=== PATIENT | female | born 1945 | race Caucasian/White ===

== ENCOUNTER 2017-06-14 06:00 | Outpatient (RCR) | payer MEDICARE, OTHER, SELFPAY | END 2017-06-15 23:59 | LOC: PR 06:00 | PROVIDERS: Family Provider Family Medicine; PCP Family Medicine; Visit Provider Internal Medicine Critical Care Medicine | DX: Z00.00 Encounter for general adult medical examination without abnormal findings (principal) ==

== ENCOUNTER → 2017-07-08 07:48 | Outpatient (CLI) | payer MEDICARE, OTHER, SELFPAY ==
--- NOTE | 2017-07-08 07:50 | CT_ITS ---
STUDY: LOW DOSE CT LUNG CANCER SCREENING REASON FOR EXAM: Female, 71 years old. History of 50 pack-year smoker. RADIATION DOSAGE (If Supplied By Facility): CTDIvol = ( 1.70 ) mGy, DLP = ( 56.58 ) mGycm TECHNIQUE: No contrast was administered. Low dose technique was utilized (average mAS-38 and kVp 120). 1.25 mm axial source images with a slice interval of 1.25-mm were reconstructed in lung windows. 2.5 mm axial source images with a slice interval of 2.5-mm were reconstructed in lung windows. 5.0 mm axial source images with a slice interval of 5.0-mm were reconstructed in soft tissue windows. Nodule measured using lung windows on PACS and/or independent workstation with automated measurement of minimum and maximum diameter. Nodule measurement reported as average diameter rounded to the nearest whole number. Growth is defined as an increase ins size of greater than 1.5 mm. COMPARISON: None. NODULES: There is a 6.1 mm x 8.5 mm slightly irregular nodular density in the right upper lobe as seen on axial image #29. A faint nodular density measuring 4.6 mm x 1 mm is also seen in the left upper lobe on axial image #28. Emphysema: Diffuse emphysematous changes worse in the upper lobes with bullous formation. Findings suggestive of scarring in the lung apices worse in the right lung apex. Endobronchial lesion: Aorta: Atherosclerotic calcification of the aortic arch and descending thoracic aorta. Coronary arteries: Coronary artery calcification. Mediastinal nodes: Small benign-appearing mediastinal lymph nodes. Other chest and abdominal findings: Degenerative changes of the thoracic spine. CT/Low Dose CT Lung Screening IMPRESSION: Suspicious nodule in the right upper lobe as described. Correlation with a PET scan is recommended. IMPORTANT NOTES FOR USE: ACR Lung-RADS Version 1.0 Assessment Categories Release Date: September 10, 2013 Category: Coded 0-4 bases on nodule(s) with highest degree of suspicion. Negative screen is defined as categories 1 and 2; a positive screen is defined as categories 3 and 4. Category 3 and 4A nodules that are unchanged on interval CT should be coded as category 2, and individuals returned to screening in 12 months. Category 4X: Category 3 or 4 nodules with additional imaging findings that increase the suspicion of lung cancer, such as spiculation, GGN that doubles in size in 1 year, enlarged lymph notes, etc. Category Modifiers: S (significant finding unrelated to lung cancer) and C (prior history of treated lung cancer) may be added to the 0-4 Lung-RADS Electronically Signed: Audie Ramires MD at 15:54 EST Tel [phone], Service support ,
== END ==
PROVIDERS: Family Provider Family Medicine; PCP Family Medicine; Visit Provider Internal Medicine Critical Care Medicine
DX: Z12.2 Encounter for screening for malignant neoplasm of respiratory organs (principal); J44.9 Chronic obstructive pulmonary disease, unspecified; R91.1 Solitary pulmonary nodule; Z87.891 Personal history of nicotine dependence
CPT/HCPCS: G0297

== ENCOUNTER 2017-07-12 06:00 | Outpatient (RCR) | payer MEDICARE, OTHER, SELFPAY ==
[2017-04-22 12:50] VITALS: BP 120/80; BMI 24.3
== END 2017-07-13 23:59 ==
LOC: PR 06:00
PROVIDERS: Family Provider Family Medicine; PCP Family Medicine; Visit Provider Internal Medicine Critical Care Medicine
DX: Z00.00 Encounter for general adult medical examination without abnormal findings (principal)

== ENCOUNTER 2017-08-11 06:00 | Outpatient (RCR) | payer SELFPAY | END 2017-08-13 23:59 | LOC: PR 06:00 | PROVIDERS: Family Provider Family Medicine; PCP Family Medicine; Visit Provider Internal Medicine Critical Care Medicine | DX: Z00.00 Encounter for general adult medical examination without abnormal findings (principal) ==

== ENCOUNTER 2017-09-08 06:00 | Outpatient (RCR) | payer SELFPAY | END 2017-09-12 23:59 | LOC: PR 06:00 | PROVIDERS: Family Provider Family Medicine; PCP Family Medicine; Visit Provider Internal Medicine Critical Care Medicine | DX: Z00.00 Encounter for general adult medical examination without abnormal findings (principal) ==

== ENCOUNTER → 2017-09-23 09:18 | Outpatient (CLI) | payer MEDICARE, OTHER, SELFPAY ==
[2017-09-23 12:12] LABS: Absolute Lymphocyte Count 1.49 X10^3/ul (0.83-4.51); Absolute Neutrophil Count 3.8 X10^3/uL (2.0-7.7); Basophil# 0.03 X10^3/uL; Basophil% 0.5 % (0-1); Eosinophils% 3.3 % (0-5); Hematocrit 45.5 % (37-47); Lymphocyte # 1.49 X10^3/ul (4.0); Lymphocyte % 24.9 % (19-41); Mean Corpuscular Hgb 29.5 pg (27.0-32.0); Mean Corpuscular Volume 89.6 fL (81-99); Monocyte# 0.47 X10^3/uL; Monocyte% 7.9 % (0-10); Neutrophil # 3.78 X10^3/uL (2.7-7.7); Neutrophil % 63.2 % (47-70); Platelet Count 231 K/mm3 (150-450); RBC Distribution Width CV 13.2 % (11.6-14.6); RBC Distribution Width SD 43.3 fl (35.1-43.9); Red Blood Count 5.08 M/mm3 (4.2-5.4)
[2017-09-23 12:14] LABS: POSITIVE COUNT NO; POSITIVE DIFFERENTIAL NO; POSITIVE MORPHOLOGY NO
[2017-09-23 12:33] LABS: Vitamin B12 646 pg/mL (211-911); Vitamin D,25 Hydroxy 31.2 ng/mL (29.95-100.01)
[2017-09-23 12:38] LABS: ALB/GLOB Ratio 1.1 RATIO (0.9-2.4); AST(SGOT) 18 U/L (15-37); Alanine Aminotransfer ALT/SGPT 18 U/L (13-56); Albumin, Serum 3.7 g/dL (3.2-5.0); Alkaline Phosphatase 127 U/L (45-117); Anion Gap 9 (5-15); BUN 24 mg/dL (7-18); BUN/Creat Ratio 26.3 RATIO (10-20); Calcium,Total 9.3 mg/dL (8.5-10.1); Chloride 108 mmol/L (98-107); Cholesterol 177 mg/dL (200); Creatinine, Serum 0.91 mg/dL (0.55-1.02); EST Glomerular Filtration Rate 64 mL/min (>60); Est Glom Filt Rate - Afr Amer 78 mL/min (>60); Globulin 3.5 g/dL (2.2-4.2); Glucose 78 mg/dL (74-106); High Density Lipoprotein 59 mg/dL; Potassium 4.1 mmol/L (3.5-5.1); Protein, Total 7.2 g/dL (6.4-8.2); Sodium Level 144 mmol/L (136-145); Thyroid Stim Hormone (TSH) 2.19 uIU/mL (0.358-3.74); Triglycerides 77 mg/dL; Very Low Density Lipoprotein 15 mg/dL (5-40)
== END ==
PROVIDERS: Family Provider Family Medicine; PCP Family Medicine; Visit Provider Family Medicine
DX: E78.00 Pure hypercholesterolemia, unspecified (principal); E03.9 Hypothyroidism, unspecified; D51.0 Vitamin B12 deficiency anemia due to intrinsic factor deficiency; R53.81 Other malaise
CPT/HCPCS: 36415; 80053; 80061; 82306; 82607; 84443; 85025

== ENCOUNTER 2017-10-06 06:00 | Outpatient (RCR) | payer SELFPAY | END 2017-10-13 23:59 | LOC: PR 06:00 | PROVIDERS: Family Provider Family Medicine; PCP Family Medicine; Visit Provider Internal Medicine Critical Care Medicine | DX: Z00.00 Encounter for general adult medical examination without abnormal findings (principal) ==

== ENCOUNTER → 2017-11-01 06:54 | Outpatient (CLI) | payer MEDICARE, OTHER, SELFPAY ==
--- NOTE | 2017-11-01 07:43 | CT_ITS ---
STUDY: CT CHEST WITHOUT CONTRAST REASON FOR EXAM: Female, 72 years old. Lung nodule for follow-up. RADIATION DOSAGE (If Supplied By Facility): CTDIvol = ( 7.32 ) mGy, DLP = ( 265.03 ) mGycm TECHNIQUE: Transaxial imaging was performed without the administration of intravenous contrast material. Individualized dose optimization techniques were used for this CT. COMPARISON: July 08, 2017. Chest x-ray September 29, 2015. FINDINGS: Diffuse emphysematous changes. Cardiac lung nodule measuring 0.6 x 0.3 cm, axial image 46 series 4, decreased in size since the prior study where it measured 0.9 x 0.6 cm. Coronary artery calcifications. Heart is not enlarged. No pericardial effusion. Calcified mediastinal lymph nodes. Normal hilar regions. Normal unenhanced pulmonary arteries. Normal aorta arch and descending thoracic aorta. Normal osseous structures. Scattered calcifications in the spleen. CT/Chest without Contrast IMPRESSION: Decrease in size of noncalcified right apical lung nodule which could be related to a resolving nodule or differences in plane of sectionng. Recommend follow-up CT in 18-24 months from June 2017. COPD. Old granulomatous disease. Coronary artery calcifications. Electronically Signed: Paolo Ahumada MD at 5:21 EDT , Service support ,
--- NOTE | 2017-11-01 12:31 | PFT ---
INTRODUCTION: The patient is a 72-year-old female currently under the care of myself the presents for pulmonary function testing secondary to a diagnosis of lung nodule. Respiratory therapy reports good patient effort. Bronchodilators were used during testing. INTERPRETATION: Forced expiration spirometry demonstrates the presence of a moderately severe large airways obstructive ventilatory defect. There was no significant response to aerosolized bronchodilators. Spirograms are of good quality do not plateau indicating slow emptying of the lungs. The respiratory flow volume loop reveals decreased expiratory flow rates at all lung volumes consistent with airways obstruction. Body plethysmography was performed and reveals an elevated TLC and RV, indicative of underlying hyperinflation and air-trapping. Diffusing capacity by single breath CO is moderately reduced at 47% of predicted. IMPRESSION: These pulmonary function studies demonstrate the presence of an irreversible moderately severe large airways obstructive ventilatory defect with associated hyperinflation, air trapping and reduction in diffusing capacity.
== END ==
PROVIDERS: Family Provider Family Medicine; PCP Family Medicine; Visit Provider Internal Medicine Critical Care Medicine
DX: J44.0 Chronic obstructive pulmonary disease with (acute) lower respiratory infection (principal); J20.9 Acute bronchitis, unspecified; R91.1 Solitary pulmonary nodule
CPT/HCPCS: 71250; 94060; 94726; 94729

== ENCOUNTER 2017-11-10 06:00 | Outpatient (RCR) | payer MEDICARE, OTHER, SELFPAY | END 2017-11-12 23:59 | LOC: PR 06:00 | PROVIDERS: Family Provider Family Medicine; PCP Family Medicine; Visit Provider Internal Medicine Critical Care Medicine | DX: Z00.00 Encounter for general adult medical examination without abnormal findings (principal) ==

== ENCOUNTER 2017-12-13 06:00 | Outpatient (RCR) | payer MEDICARE, OTHER, SELFPAY | END 2017-12-13 23:59 | LOC: PR 06:00 | PROVIDERS: Family Provider Family Medicine; PCP Family Medicine; Visit Provider Internal Medicine Critical Care Medicine | DX: Z00.00 Encounter for general adult medical examination without abnormal findings (principal) ==

== ENCOUNTER 2018-01-12 06:00 | Outpatient (RCR) | payer SELFPAY | END 2018-01-13 23:59 | LOC: PR 06:00 | PROVIDERS: Family Provider Family Medicine; PCP Family Medicine; Visit Provider Internal Medicine Critical Care Medicine | DX: Z00.00 Encounter for general adult medical examination without abnormal findings (principal) ==

== ENCOUNTER 2018-02-09 06:00 | Outpatient (RCR) | payer SELFPAY | END 2018-02-12 23:59 | LOC: PR 06:00 | PROVIDERS: Family Provider Family Medicine; PCP Family Medicine; Visit Provider Internal Medicine Critical Care Medicine | DX: Z00.00 Encounter for general adult medical examination without abnormal findings (principal) ==

== ENCOUNTER 2018-03-14 06:00 | Outpatient (RCR) | payer SELFPAY | END 2018-03-15 23:59 | LOC: PR 06:00 | PROVIDERS: Family Provider Family Medicine; PCP Family Medicine; Visit Provider Internal Medicine Critical Care Medicine | DX: Z00.00 Encounter for general adult medical examination without abnormal findings (principal) ==

== ENCOUNTER 2018-04-13 06:00 | Outpatient (RCR) | payer SELFPAY | END 2018-04-14 23:59 | LOC: PR 06:00 | PROVIDERS: Family Provider Family Medicine; PCP Family Medicine; Visit Provider Internal Medicine Critical Care Medicine | DX: Z00.00 Encounter for general adult medical examination without abnormal findings (principal) ==

== ENCOUNTER → 2018-04-17 10:21 | Outpatient (CLI) | payer MEDICARE, SELFPAY ==
[2018-03-23 08:39] VITALS: BMI 25.0
--- OUTSIDE RECORDS SUMMARY | 2018-06-10 15:23 | XMS RPT_ITS ---
:1945 Author Organization OHIP Support Name Relationship Address Phone MISAEL JIMENEZ Unavailable [address] [place], [place] [address]ORI ALMAZAN + [place] [address] R Unavailable Unavailable Unavailable HURST, MISAEL Unavailable [address] [place], [place] [address]ORI [place]ZAN + [place] [address] R Unavailable Unavailable Unavailable HURST, MISAEL Unavailable [address] [place], [place] [address]ANDRAE ALMAZAN + [place] [address] R Unavailable Unavailable Unavailable HURST, MISAEL Unavailable [address] [place], [place] [address]ANDRAE [phone] [place] [address] R Unavailable Unavailable Unavailable HURST, MISAEL Unavailable [address] [place], [place] [address]ANDRAE ALMAZAN + [place] [address] R Unavailable Unavailable Unavailable HURST, MISAEL Unavailable [address] [place], [place] [address]ANDRAE [phone] [place] [address] R Unavailable Unavailable Unavailable HURST, MISAEL Unavailable [address] [place], [place] [address]ANDRAE ALMAZAN + [place] [address] R Unavailable Unavailable Unavailable HURST, MISAEL Unavailable [address] [place], [place] [address]ANDRAE [phone] [place] [address] R Unavailable Unavailable Unavailable HURST, MISAEL Unavailable [address] [place], [place] [address]ANDRAE [phone] [place] [address] R Unavailable Unavailable Unavailable HURST, MISAEL Unavailable [address] [place], [place] [address]ORI [phone] [place] [address] R Unavailable Unavailable Unavailable HURST, MISAEL Unavailable [address] [place], [place] [address]ORI [phone] [place] [address] R Unavailable Unavailable Unavailable HURST, MISAEL Unavailable [address] [place], [place] [address]ANDRAE ALMAZAN + [place] [address] R Unavailable Unavailable Unavailable HURST, MISAEL Unavailable [address] [place], [place] [address]ANDRAE [phone] [place] [address] R Unavailable Unavailable Unavailable HURST, MISAEL Unavailable [address] [place], [place] [address]ANDRAE [phone] [place] [address] R Unavailable Unavailable Unavailable MISAEL JIMENEZ Unavailable [address] + [place] [address] R Unavailable Unavailable Unavailable MISAEL JIMENEZ Unavailable [address] + [place] [address] R Unavailable Unavailable Unavailable MISAEL JIMENEZ Unavailable [address] + [place] [address] R Unavailable Unavailable Unavailable R Unavailable Unavailable Unavailable R Unavailable Unavailable Unavailable R Unavailable Unavailable Unavailable R Unavailable Unavailable Unavailable R Unavailable Unavailable Unavailable R Unavailable Unavailable Unavailable R Unavailable Unavailable Unavailable R Unavailable Unavailable Unavailable R Unavailable Unavailable Unavailable Care Team Providers Name Role Phone SRAVANI HDEZ Attending Unavailable SRAVANI HDEZ Referring Unavailable Hossein Espino D.O. Attending Unavailable Bee, Jose Referring Unavailable ManuelitoSushil Attending Unavailable Bee, Jose Primary Care Unavailable Sushil Billings Attending Unavailable Bee, Jose Primary Care Unavailable Sushil Billings Attending Unavailable Bee, Jose Primary Care Unavailable ManuelitoSushil campos Attending Unavailable Bee, Jose Primary Care Unavailable Hossein Espino D.O. Attending Unavailable Hossein Espino D.O. Referring Unavailable Bee, Jose Primary Care Unavailable ManuelitoSushil campos Attending Unavailable Bee, Jose Primary Care Unavailable Hossein Espino D.O. Attending Unavailable Bee, Jose Referring Unavailable ManuelitoSushil Attending Unavailable Bee, Jose Primary Care Unavailable ManuelitoSushil campos Attending Unavailable Bee, Jose Primary Care Unavailable Bee, Jose Attending Unavailable Bee, Jose Referring Unavailable Bee, Jose Primary Care Unavailable Sushil Billings Attending Unavailable Bee, Jose Primary Care Unavailable Melissa Claros.Lorelei. Attending Unavailable Hossein Espino D.O. Referring Unavailable Bee, Jose Primary Care Unavailable Hossein Espino D.O. Attending Unavailable Bee, Jose Referring Unavailable ManuelitoSushil Attending Unavailable Bee, Jose Primary Care Unavailable Hossein Epsino D.O. Attending Unavailable Melissa Claros.Lorelei. Referring Unavailable Sushil Billings Attending Unavailable Bee, Jose Primary Care Unavailable Sushil Billings Attending Unavailable Bee, Jose Primary Care Unavailable Hossein Espino D.O. Attending Unavailable Bee, Jose Referring Unavailable ManuelitoSushil Attending Unavailable Bee, Jose Primary Care Unavailable Alina Briceño Attending Unavailable Bee, Jose Referring Unavailable ManuelitoSushil Attending Unavailable Bee, Jose Primary Care Unavailable Alina Briceño Attending Unavailable Bee, Jose Referring Unavailable ManuelitoSushil Attending Unavailable Bee, Jose Primary Care Unavailable Manuelito, Sushil Referring Unavailable Alina Briceño Attending Unavailable Alina Briceño Referring Unavailable Jose Bee Primary Care Unavailable PROBLEMS PROBLEMS DATE TYPE CONDITION / CODE ATTENDING STATUS SOURCE 05/02/2018 Unknown Z00.00 - Manuelito Sushil Active [place] Encounter for [facility] medical Repository examination without abnormal findings / Z00.00(ICD-10) 11/29/2017 Unknown R91.1 - Solitary Jigar Claros pulmonary nodule D.O. Community / R91.1(ICD-10) Hospital Repository 10/06/2017 Active Other specified SRAVANI HDEZ Active [facility] forms of tremor / [facility] [place] G25.2(ICD-10) Repository 09/23/2017 Unknown R53.81 - Other BeeJose Active [place] malaise / Community R53.81(ICD-10) Hospital Repository 09/23/2017 Unknown 780.79 - Other Jose Bee Active [place] malaise and Community fatigue / Hospital 780.79(ICD-9) Repository 07/20/2017 Unknown J44.0 - Chronic Jigar Claros obstructive D.O. [facility] pulmonary disease Hospital with acute lower Repository respiratory infection / J44.0(ICD-10) 07/20/2017 Unknown J20.9 - Acute Hossein Espino, Active [place] bronchitis, D.O. Community unspecified / Hospital J20.9(ICD-10) Repository PROCEDURES PROCEDURES No Procedure Records FoundRESULTS RESULTS PULMONARY VISIT REPORT Observed: 04/25/2018 Status: F Source: [place] 3:00 PM [facility] REPOSITORY [facility] [address] [place] [address] OFFICE VISIT Date of Service: 04/25/18 MR#: [id number] Acct: [id number] Name: CHERIE JIMENEZ Rep #: [id number] : 1945 Provider: Hossein Espino D.O. Age/Sex: 72/F Location[place] [facility] Status: Signed Assessment AND Plan 1. Chronic obstructive pulmonary disease with acute exacerbation J44.1 Plan The patient has been in an exacerbated state since the end of March. She is currently amidst a prednisone taper. Although the patient's sputum culture was not positive for the presence of a bacterial pathogen, I am going to treat her empirically with Levaquin, given how symptomatic that she remains and how productive her cough continues to be. In addition, given that the patient has had adverse reactions to a multitude of different inhalers, she will be trialed on Spiriva Respimat. She will have short interval follow-up at the beginning of the year to reassess her symptom response to therapy. 2. Lung nodule R91.1 Plan The patient will be due for repeat chest imaging in April 2019. Plan Detail Other Medications New: tiotropium bromide 2.5 mcg/actuation (Spiriva Respim2 puffs Inhalation QDAY 1 device 3RF at) Follow Up 3 Weeks (CSM) HPI HPI Comments Details: The patient is a 72-year-old female who presents to the clinic today for a routine scheduled follow-up office visit due to underlying COPD. If you recall, the patient initially transferred her care to me from her previous provider at [facility]. The patient presented with an established diagnosis of COPD and had already completed pulmonary rehabilitation. She is being actively monitored in the low-dose screening protocol. The patient's low-dose CT scan of her chest completed in December 2016 through [facility] revealed bilateral subcentimeter pulmonary nodules and severe upper lobe predominant centrilobular emphysema. Pulmonary function testing completed in November 2016 revealed the presence of a moderate obstructive ventilatory defect with a significant response to aerosolized bronchodilators. Lung volumes were within normal limits. There was a severe reduction in diffusing capacity. CT chest completed in June 2017 revealed evidence of a 6 x 8.5 mm nodular density in the right upper lobe along with a 4.6 x 1 mm nodule in the left upper lobe. Again noted was diffuse bilateral emphysematous changes. The patient does have a previous smoking history of 1 pack per day 50 years, having quit completely in May 2015. Repeat pulmonary function testing completed in October 2017 revealed evidence of an irreversible moderately severe large airways obstructive ventilatory defect with associated hyperinflation, air trapping and reduction in diffusing capacity. Repeat CT chest without contrast dated October 2017 revealed interval decrease in the size of the right apical pulmonary nodule. Today, the patient reports that she has been experiencing worsening shortness of breath and a productive cough since the end of March. The patient was started on a prednisone taper by our nurse practitioner and a sputum culture was obtained. That sputum culture revealed only normal respiratory jarrod. However, the patient reports continued tenacious green sputum production. She currently has 3 days of prednisone left. If you recall, the patient previously had developed side effects to a multitude of different inhalers tried from different classes including LABA/ICS inhalers and combination LABA/LAMA inhalers. She is currently utilizing her rescue inhaler 2 times per day, which is in lindo contrast to previous. She also reports the presence of sinus drainage and postnasal drip. She denies fevers, chills or night sweats. She is leaving this upcoming Tuesday to visit family in [place]. Intake Vital Signs04/25/18 Height 5 ft 4 in 04/25/18 Weight: 144 lb Intake Visit Reasons: medication concerns Accompanied by: Self Allergies metaxalone [From Skelaxin] Allergy (Severe, Verified 04/25/18 13:44) palpitations, tachycardia and itching amoxicillin trihydrate [From Augmentin] Allergy (Verified 04/25/18 13:44) Unknown bacitracin [From Polysporin] Allergy (Verified 04/25/18 13:44) Unknown polymyxin B sulfate [From Polysporin] Allergy (Verified 04/25/18 13:44) Unknown potassium clavulanate [From Augmentin] Allergy (Verified 04/25/18 13:44) Unknown propoxyphene napsylate [From Darvocet-N 100] Adverse Reaction (Verified 04/25/18 13:44) Nausea/Vom/Diarrhea BANDAID Allergy (Uncoded 04/25/18 13:44) Unknown Medications Atorvastatin Calcium [Lipitor] 10 mg PO DAILY 08/08/14 [History Confirmed 04/25/18] Biotin [Srinath Biotin] 5,000 mcg PO DAILY 08/08/14 [History Confirmed 04/25/18] Cyanocobalamin (Vitamin B-12) [Vitamin B-12] 1,000 mcg IM QMONTH 08/08/14 [History Confirmed 04/25/18] Estrogens, Conjugated [Premarin] 1 applicatio TOPICAL QMONTH 08/08/14 [History Confirmed 04/25/18] Folic Acid 1 mg PO DAILY 08/08/14 [History Confirmed 04/25/18] Levothyroxine [Synthroid] 50 mcg PO DAILY 08/08/14 [History Confirmed 04/25/18] Polyethylene Glycol 3350 [Miralax] 17 g PO DAILY 08/08/14 [History Confirmed 04/25/18] Famciclovir [Famvir] 500 mg PO TID #21 tab 03/16/16 [Rx Confirmed 04/25/18] Voltaren 0 mg PO Q8H 03/16/16 [History Confirmed 04/25/18] nystatin 100,000 unit/mL oral suspension 5 ml PO TID #250 ml 04/22/17 [Rx Confirmed 04/25/18] albuterol sulfate HFA 90 mcg/actuation aerosol inhaler 2 puff INHALATION Q6H PRN #1 device 01/19/18 [Rx Confirmed 04/25/18] prednisone 10 mg tablet 10 mg PO QDAY #30 tab 04/17/18 [Rx Confirmed 04/25/18] diltiazem ER 240 mg capsule,24 hr,extended release 240 mg PO DAILY 04/25/18 [History Confirmed 04/25/18] levofloxacin 750 mg tablet 750 mg PO DAILY #7 tab 04/25/18 [Rx Confirmed 04/25/18] tiotropium bromide 2.5 mcg/actuation mist for inhalation 2 puff INHALATION QDAY #1 device 04/25/18 [Rx Confirmed 04/25/18] PFSH Medical History rib removal (Resolved) History of hysterectomy (Resolved) mohs procedure (Resolved) Hearing loss (Chronic) Itching (Acute) Fatigue (Chronic) Hyperlipidemia (Chronic) Pernicious anemia (Chronic) Kidney stone (Acute) Hypothyroidism (Chronic) IBS (irritable bowel syndrome) (Chronic) Migraines (Chronic) Fibromyalgia (Chronic) Bruises easily (Chronic) Squamous cell carcinoma (Chronic) Basal cell carcinoma (BCC) (Chronic) Hemangioma (Chronic) Lentigo (Chronic) Keratosis (Chronic) Other specified disorder of gallbladder (Chronic) Atypical chest pain (Acute) Dyspnea on exertion (Chronic) GERD (gastroesophageal reflux disease) (Chronic) COPD (chronic obstructive pulmonary disease) (Chronic) Tobacco dependence in remission (Chronic) Pulmonary nodule (Chronic) Cough (Acute) PND (post-nasal drip) (Chronic) Acute bronchitis (Acute) Hoarseness (Acute) Oral thrush (Acute) Acute pain of both ears (Acute) Surgical History Hx laparoscopic cholecystectomy (Resolved) H/O foot surgery (Resolved) H/O lithotripsy (Resolved) History of appendectomy (Resolved) H/O cataract removal with insertion of prosthetic lens (Resolved) History of vitrectomy (Resolved) Family History Brother Cancer Father Myocardial infarction Social History Smoking Status: Former smoker second hand exposure: Yes alcohol intake: never substance use type: does not use Review of Systems Const CONSTITUTIONAL: Negative anorexia, body ache, chills, daytime sleepiness, fever(s), night sweats, oral thrush, stops breathing during sleep, weight loss, sleeping in chair, fatigue, weight loss, weight gain, frequent colds, seasonal allergies, other, headache(s) or orthopnea EETM Ear Nose Throat Mouth: Positive hearing normal and nasal discharge (green drainage); negative hard of hearing, hoarseness, dry mouth in morning, change in vision, itchy eyes, eye pain, swallowing Difficulty, ear pain, nose bleed, headache(s), mouth pain, nasal congestion, post nasal drip, sinus pain, sinus pressure, sore throat or other Cardio Cardiovascular: Negative chest pain, chest pain at rest, chest pain with activity, irregular heart rhythm, edema, shortness of breath when lying down, palpitations, murmur or other Resp Respiratory: Positive as per HPI, shortness of breath and cough cough: Positive productive color: Positive thick and green; negative pain with cough, wheezing, chest congestion, chest tightness, pain on inspiration, inhalers, increase use of rescue inhalers, snoring, apnea or other Gastro Gastrointestional: Negative bloody stools, change in appetite, difficulty swallowing, reflux, hematemesis, melena stool, loose stool, constipation or other Genitourinary: Negative blood in urine, nocturia, pain with urination or other Musc Musculoskeletal: Negative body pain, back pain, neck pain or other Skin/Breast Skin/Breast: Negative dry skin, itching, rash, unusual bruising, breast lump or other Neuro Neurological: Negative restless legs, confusion, weakness or other Psych Psychocological: Negative abnormal sleep pattern, anxiety, thoughts of hurting self/others, hopelessness or other Lymph Lymphatic: Negative easy bleeding, easy bruising, swollen lymph nodes or other Exam Const Constitutional: Positive conversant, cooperative, in no acute respiratory distress, well developed, well nourished and good hygiene Head Head: Positive normocephalic and atraumatic; negative cyanosis of lips/distal nose Eyes Eye: Positive clear conjunctiva; negative nystagmus or scleral abnormality Ears Ear: Positive hearing normal and external ears normal; negative hard of hearing Nose Nose: Positive external nose normal; negative epistaxis Mouth Mouth: Positive oral mucosae normal and posterior oropharynx is adequate; negative no lesions or post nasal drip Mallampati Score: II: Mallampati Score Neck Neck: Positive normal visual inspection and trachea midline; negative lymphadenopathy Chest Wall Chest: Positive symmetric chest movement Normal AP diameter. Resp lung sounds: Positive diminished diminished: Positive bialteral; negative wheezes, rhonchi or rales Cardio Cardiac: Positive regular rate, regular rhythm, S1 normal and S2 normal; negative rub, gallop or murmur GI GI: Positive normal bowel sounds Soft without distention Genitourinary: Positive deferred Musc Musculoskeletal: Positive steady gait Skin Pulmonary Skin Exam: Positive intact; negative lesion, ulcers, dermal atrophy or rash Pulses Pulse: Yes Pedal pulses present: Extremities Extremities: No clubbing, No cyanosis, No edema Neuro Neurologic: Yes conversant, Yes no focal neuro deficits, Yes cooperative Lymph Lymphatic: No lymphadenopathy Psych Appearance: Positive grossly normal Mental Status: Positive mental status grossly normal Mood: Positive congruent mood Affect: Positive normal affect Coding Level of Care Code Off vis,est,level 3 Diagnoses Chronic obstructive pulmonary disease with acute exacerbation J44.1 COPD type: COPD with acute exacerbation Lung nodule R91.1 04/25/18 1500 <Electronically signed by Hossein Espino DO> Date Hossein Espino DO Cosigner Signature: Date (if applicable) CC: Jose Bee MD PULMONARY VISIT REPORT Observed: 04/19/2018 Status: F Source: [place] 10:40 AM [facility] REPOSITORY [facility] [place] [address] [place] [address] OFFICE VISIT Date of Service: 01/18/18 MR#: [id number] Acct: [id number] Name: CHERIE JIMENEZ Rep #: [id number] : 1945 Provider: Hossein Espino D.O. Age/Sex: 72/F [place] [facility] Status: Signed Assessment AND Plan 1. COPD (chronic obstructive pulmonary disease) J44.9 Plan While the patient does have COPD based upon her pulmonary function testing, she has been on a number of different inhalers previously, most recently Symbicort. The patient reports that she developed vocal fogginess to both Symbicort in the previously prescribed Breo. In addition, she believes that she developed a tremor as a consequence of Anoro utilization. Given that the patient cannot tell a subjective improvement or change in her breathing quality with Symbicort, I have advised her to discontinue all maintenance inhalers at this time and only utilize her rescue inhaler on an as-needed basis. She has been advised that if she utilizes her rescue inhaler more than 2-3 times per day, to begin the use of Spiriva Respimat, for which she received samples today. The patient will have short interval follow-up with our nurse practitioner in 6 weeks to reassess her symptom response to therapy. 2. Lung nodule R91.1 Plan The patient will be due for repeat chest imaging study in April 2019. Plan Detail Follow Up 6 Weeks (CSM) HPI HPI Comments Details: The patient is a 72-year-old female who presents to the clinic today for a routine scheduled follow-up office visit due to underlying COPD. If you recall, the patient initially transferred her care to me from her previous provider at [facility]. The patient presented with an established diagnosis of COPD and had already completed pulmonary rehabilitation. She is being actively monitored in the low-dose screening protocol. The patient's low-dose CT scan of her chest completed in December 2016 through [facility] revealed bilateral subcentimeter pulmonary nodules in severe upper lobe predominant centrilobular emphysema. Pulmonary function testing completed in November 2016 revealed the presence of a moderate obstructive ventilatory defect with a significant response to aerosolized bronchodilators. Lung volumes were within normal limits. There was a severe reduction in diffusing capacity. CT chest completed in June 2017 revealed evidence of a 6 x 8.5 mm nodular density in the right upper lobe along with a 4.6 x 1 mm nodule in the left upper lobe. Again noted was diffuse bilateral emphysematous changes. The patient does have a previous smoking history of 1 pack per day 50 years, having quit completely in May 2015. Repeat pulmonary function testing completed in October 2017 revealed evidence of an irreversible moderately severe large airways obstructive ventilatory defect with associated hyperinflation, air trapping and reduction in diffusing capacity. Repeat CT chest without contrast dated October 2017 revealed interval decrease in the size of the right apical pulmonary nodule. Today, the patient reports that she recently completed her samples of Symbicort. She reports it is difficult for her to tell whether the use of Symbicort has led to improvement in her breathing quality or not. She is currently only utilizing her rescue inhaler as pretreatment before exercise. She does report that she feels that the Symbicort has led to fogginess in her voice. She is utilizing a spacer with the aforementioned inhaler. She denies the presence of chest tightness, wheezing or cough. Her shortness of breath is largely unchanged. She denies fevers, chills or night sweats. She denies chest pain, dizziness or lightheadedness. Intake Vital Signs01/18/18 Height 5 ft 4 in 01/18/18 Weight: 146 lb Intake Visit Reasons: 3 M FU Summer Law Clerk Required: No Accompanied by: Self Is patient in pain?: Yes Allergies metaxalone [From Skelaxin] Allergy (Severe, Verified 01/18/18 10:18) palpitations, tachycardia and itching amoxicillin trihydrate [From Augmentin] Allergy (Verified 01/18/18 10:18) Unknown bacitracin [From Polysporin] Allergy (Verified 01/18/18 10:18) Unknown polymyxin B sulfate [From Polysporin] Allergy (Verified 01/18/18 10:18) Unknown potassium clavulanate [From Augmentin] Allergy (Verified 01/18/18 10:18) Unknown propoxyphene napsylate [From Darvocet-N 100] Adverse Reaction (Verified 01/18/18 10:18) Nausea/Vom/Diarrhea BANDAID Allergy (Uncoded 01/18/18 10:18) Unknown Medications Atorvastatin Calcium [Lipitor] 10 mg PO DAILY 08/08/14 [History Confirmed 07/20/17] Biotin [Srinath Biotin] 5,000 mcg PO DAILY 08/08/14 [History Confirmed 07/20/17] Cyanocobalamin (Vitamin B-12) [Vitamin B-12] 1,000 mcg IM QMONTH 08/08/14 [History Confirmed 07/20/17] Estrogens, Conjugated [Premarin] 1 applicatio TOPICAL QMONTH 08/08/14 [History Confirmed 07/20/17] Folic Acid [Folic Acid] 1 mg PO DAILY 08/08/14 [History Confirmed 07/20/17] Levothyroxine [Synthroid] 50 mcg PO DAILY 08/08/14 [History Confirmed 07/20/17] Polyethylene Glycol 3350 [Miralax] 17 g PO DAILY 08/08/14 [History Confirmed 07/20/17] Famciclovir [Famvir] 500 mg PO TID #21 tab 03/16/16 [Rx Confirmed 07/20/17] Voltaren 0 mg PO Q8H 03/16/16 [History Confirmed 07/20/17] nystatin 100,000 unit/mL oral suspension 5 ml PO TID #250 ml 04/22/17 [Rx Confirmed 07/20/17] fluticasone 100 mcg-vilanterol 25 mcg/dose powder for inhalation 1 ea INHALATION DAILY #3 device 06/08/17 [Rx Confirmed 07/20/17] albuterol sulfate HFA 90 mcg/actuation aerosol inhaler 2 puff INHALATION Q6H PRN #1 device 07/20/17 [Rx Confirmed 07/20/17] [facility] Medical History rib removal (Resolved) mohs procedure (Resolved) Hearing loss (Chronic) Itching (Acute) Fatigue (Chronic) Hyperlipidemia (Chronic) Pernicious anemia (Chronic) Kidney stone (Acute) Hypothyroidism (Chronic) IBS (irritable bowel syndrome) (Chronic) Migraines (Chronic) Fibromyalgia (Chronic) Bruises easily (Chronic) Squamous cell carcinoma (Chronic) Basal cell carcinoma (BCC) (Chronic) Hemangioma (Chronic) Lentigo (Chronic) Keratosis (Chronic) Other specified disorder of gallbladder (Chronic) Atypical chest pain (Acute) Dyspnea on exertion (Chronic) GERD (gastroesophageal reflux disease) (Chronic) COPD (chronic obstructive pulmonary disease) (Chronic) Tobacco dependence in remission (Chronic) Pulmonary nodule (Chronic) Cough (Acute) PND (post-nasal drip) (Chronic) Acute bronchitis (Acute) Hoarseness (Acute) Oral thrush (Acute) Acute pain of both ears (Acute) Surgical History Hx laparoscopic cholecystectomy (Resolved) H/O foot surgery (Resolved) H/O lithotripsy (Resolved) History of appendectomy (Resolved) History of hysterectomy (Resolved) H/O cataract removal with insertion of prosthetic lens (Resolved) History of vitrectomy (Resolved) Family History Brother Cancer Father Myocardial infarction Social History Smoking Status: Former smoker second hand exposure: Yes alcohol intake: never substance use type: does not use Review of Systems Const CONSTITUTIONAL: Positive fatigue; negative anorexia, body ache, chills, daytime sleepiness, fever(s), night sweats, oral thrush, stops breathing during sleep, weight loss, sleeping in chair, weight loss, weight gain, frequent colds, seasonal allergies, other, headache(s) or orthopnea EETM Ear Nose Throat Mouth: Positive hearing normal; negative hard of hearing, hoarseness, dry mouth in morning, change in vision, itchy eyes, eye pain, swallowing Difficulty, ear pain, nose bleed, headache(s), mouth pain, nasal congestion, nasal discharge, post nasal drip, sinus pain, sinus pressure, sore throat or other Cardio Cardiovascular: Negative chest pain, chest pain at rest, chest pain with activity, irregular heart rhythm, edema, shortness of breath when lying down, palpitations, murmur or other Resp Respiratory: Positive as per HPI and shortness of breath shortness of breath: Positive with activity; negative pain with cough, wheezing, chest congestion, cough, chest tightness, pain on inspiration, inhalers, increase use of rescue inhalers, snoring, apnea or other Gastro Gastrointestional: Negative bloody stools, change in appetite, difficulty swallowing, reflux, hematemesis, melena stool, loose stool, constipation or other Genitourinary: Negative blood in urine, nocturia, pain with urination or other Musc Musculoskeletal: Positive body pain; negative back pain, neck pain or other Skin/Breast Skin/Breast: Negative dry skin, itching, rash, unusual bruising, breast lump or other Neuro Neurological: Negative restless legs, confusion, weakness or other Psych Psychocological: Negative abnormal sleep pattern, anxiety, thoughts of hurting self/others, hopelessness or other Lymph Lymphatic: Negative easy bleeding, easy bruising, swollen lymph nodes or other Exam Const Constitutional: Positive conversant, cooperative, in no acute respiratory distress, well developed, well nourished and good hygiene Head Head: Positive normocephalic and atraumatic; negative cyanosis of lips/distal nose Eyes Eye: Positive clear conjunctiva; negative nystagmus or scleral abnormality Ears Ear: Positive hearing normal and external ears normal; negative hard of hearing Nose Nose: Positive external nose normal; negative epistaxis Mouth Mouth: Positive oral mucosae normal and posterior oropharynx is adequate; negative no lesions or post nasal drip Mallampati Score: II: Mallampati Score Neck Neck: Positive normal visual inspection and trachea midline; negative lymphadenopathy Chest Wall Chest: Positive symmetric chest movement Normal AP diameter. Resp lung sounds: Positive diminished diminished: Positive bialteral and normal expiratory time; negative wheezes, rhonchi or rales Cardio Cardiac: Positive regular rate, regular rhythm, S1 normal and S2 normal; negative rub, gallop or murmur GI GI: Positive normal bowel sounds Soft without distention Genitourinary: Positive deferred Musc Musculoskeletal: Positive steady gait Skin Pulmonary Skin Exam: Positive intact; negative lesion, ulcers, dermal atrophy or rash Pulses Pulse: Yes Pedal pulses present: Extremities Extremities: No clubbing, No cyanosis, No edema Neuro Neurologic: Yes conversant, Yes no focal neuro deficits, Yes cooperative Lymph Lymphatic: No lymphadenopathy Psych Appearance: Positive grossly normal Mental Status: Positive mental status grossly normal Mood: Positive congruent mood Affect: Positive anxious affect Coding Level of Care Code Off vis,est,level 3 Diagnoses COPD (chronic obstructive pulmonary disease) J44.9 Lung nodule R91.1 01/18/18 1103 <Electronically signed by Hossein Espino DO> Date Hossein Espino DO Cosigner Signature: Date (if applicable) CC: Jose Bee MD Observed: 04/17/2018 Status: F Source: [facility] CULTURE, SPUTUM 10:26 AM [facility] REPOSITORY Gram Stain Acceptable Specimen? Yes (<25 Epithelial cells per/lpf) Gram Stain 2+ White Blood Cells 2+ Gram positive cocci in clusters Rare Gram positive rods Resp. Culture Mixed normal respiratory jarrod. No Haemophilus, Streptococcus pneumoniae, beta-hemolytic Streptococcus or Staphylococcus aureus isolated. Performed By: #### [id number] #### [facility] [address] [place], [address] PULMONARY VISIT REPORT Observed: 03/24/2018 Status: F Source: [place] 9:36 AM [facility] REPOSITORY [facility] [address] [place] [address] OFFICE VISIT Date of Service: 03/23/18 MR#: [id number] Acct: [id number] Name: CHERIE JIMENEZ Rep #: [id number] : 1945 Provider: Alina Briceño Age/Sex: 72/F [place] [facility] [place] Status: Signed Assessment AND Plan Problems 1. COPD (chronic obstructive pulmonary disease) with acute bronchitis J44.0; J20.9 Plan She does not appear to be in exacerbation of her COPD today. We have had a difficult time trying to find appropriate inhalers to control her symptoms but not cause side effects. At this time I am going to discontinue Symbicort and place her on Asmanex 100 mcg 2 puffs twice daily. She was instructed on using the spacer with her medication. She has been asked to contact the office after 1 week on the medication to give me an update on how she is feeling, if things are going well the medication will be prescribed through her pharmacy. Follow-up with Dr. Espino in 3 months. No additional testing at this time. Contact the office with any new or worsening symptoms in the meantime. Plan Detail Follow Up 3 Months (DMB) HPI 1 M FU: Chief Complaint: Hoarseness HPI Comments Details: This patient presents the office today for a close interval follow-up regarding medication change. She is ambulatory and currently in room air. She states that since being placed on the Symbicort 80 mcg 2 puffs twice daily she has noticed a worsening in her shortness of breath. Unfortunately, she continues to have tremors and the hoarseness. She has not used her rescue inhaler more frequently, despite the worsening shortness of breath. She denies any cough, sputum production or hemoptysis. She denies any chest pain or palpitations. She has not experienced any wheezing or chest tightness. She denies any fever, chills or body aches. She did report rinsing her mouth out after each use of the Symbicort, and used a spacer. She denies any medication side effects such as sore throat or thrush. See complete review of systems. Intake Vital Signs03/23/18 Height 5 ft 4 in 03/23/18 Weight: 146 lb Intake Visit Reasons: 1 M FU [employer] Required: No Accompanied by: Self Allergies metaxalone [From Skelaxin] Allergy (Severe, Verified 03/23/18 08:40) palpitations, tachycardia and itching amoxicillin trihydrate [From Augmentin] Allergy (Verified 03/23/18 08:40) Unknown bacitracin [From Polysporin] Allergy (Verified 03/23/18 08:40) Unknown polymyxin B sulfate [From Polysporin] Allergy (Verified 03/23/18 08:40) Unknown potassium clavulanate [From Augmentin] Allergy (Verified 03/23/18 08:40) Unknown propoxyphene napsylate [From Darvocet-N 100] Adverse Reaction (Verified 03/23/18 08:40) Nausea/Vom/Diarrhea BANDAID Allergy (Uncoded 03/23/18 08:40) Unknown Medications Atorvastatin Calcium [Lipitor] 10 mg PO DAILY 08/08/14 [History Confirmed 03/23/18] Biotin [Srinath Biotin] 5,000 mcg PO DAILY 08/08/14 [History Confirmed 03/23/18] Cyanocobalamin (Vitamin B-12) [Vitamin B-12] 1,000 mcg IM QMONTH 08/08/14 [History Confirmed 03/23/18] Estrogens, Conjugated [Premarin] 1 applicatio TOPICAL QMONTH 08/08/14 [History Confirmed 03/23/18] Folic Acid 1 mg PO DAILY 08/08/14 [History Confirmed 03/23/18] Levothyroxine [Synthroid] 50 mcg PO DAILY 08/08/14 [History Confirmed 03/23/18] Polyethylene Glycol 3350 [Miralax] 17 g PO DAILY 08/08/14 [History Confirmed 03/23/18] Famciclovir [Famvir] 500 mg PO TID #21 tab 03/16/16 [Rx Confirmed 03/23/18] Voltaren 0 mg PO Q8H 03/16/16 [History Confirmed 03/23/18] nystatin 100,000 unit/mL oral suspension 5 ml PO TID #250 ml 04/22/17 [Rx Confirmed 03/23/18] albuterol sulfate HFA 90 mcg/actuation aerosol inhaler 2 puff INHALATION Q6H PRN #1 device 01/19/18 [Rx Confirmed 03/23/18] budesonide-formoterol HFA 160 mcg-4.5 mcg/actuation aerosol inhaler 2 puff INHALATION BID 02/20/18 [History Confirmed 03/23/18] diltiazem ER 180 mg capsule,24 hr,extended release 180 mg PO DAILY 02/20/18 [History Confirmed 03/23/18] [facility] Medical History rib removal (Resolved) History of hysterectomy (Resolved) mohs procedure (Resolved) Hearing loss (Chronic) Itching (Acute) Fatigue (Chronic) Hyperlipidemia (Chronic) Pernicious anemia (Chronic) Kidney stone (Acute) Hypothyroidism (Chronic) IBS (irritable bowel syndrome) (Chronic) Migraines (Chronic) Fibromyalgia (Chronic) Bruises easily (Chronic) Squamous cell carcinoma (Chronic) Basal cell carcinoma (BCC) (Chronic) Hemangioma (Chronic) Lentigo (Chronic) Keratosis (Chronic) Other specified disorder of gallbladder (Chronic) Atypical chest pain (Acute) Dyspnea on exertion (Chronic) GERD (gastroesophageal reflux disease) (Chronic) COPD (chronic obstructive pulmonary disease) (Chronic) Tobacco dependence in remission (Chronic) Pulmonary nodule (Chronic) Cough (Acute) PND (post-nasal drip) (Chronic) Acute bronchitis (Acute) Hoarseness (Acute) Oral thrush (Acute) Acute pain of both ears (Acute) Surgical History Hx laparoscopic cholecystectomy (Resolved) H/O foot surgery (Resolved) H/O lithotripsy (Resolved) History of appendectomy (Resolved) H/O cataract removal with insertion of prosthetic lens (Resolved) History of vitrectomy (Resolved) Family History Brother Cancer Father Myocardial infarction Social History Smoking Status: Former smoker second hand exposure: Yes alcohol intake: never substance use type: does not use Review of Systems Const CONSTITUTIONAL: Negative anorexia, body ache, chills, daytime sleepiness, fever(s), night sweats, oral thrush, stops breathing during sleep, weight loss, sleeping in chair, fatigue, weight loss, weight gain, frequent colds, seasonal allergies, other, headache(s) or orthopnea EETM Ear Nose Throat Mouth: Positive hearing normal and post nasal drip; negative hard of hearing, hoarseness, dry mouth in morning, change in vision, itchy eyes, eye pain, swallowing Difficulty, ear pain, nose bleed, headache(s), mouth pain, nasal congestion, nasal discharge, sinus pain, sinus pressure, sore throat or other Cardio Cardiovascular: Negative chest pain, chest pain at rest, chest pain with activity, irregular heart rhythm, edema, shortness of breath when lying down, palpitations, murmur or other Resp Respiratory: Positive as per HPI; negative shortness of breath, pain with cough, wheezing, chest congestion, cough, chest tightness, pain on inspiration, inhalers, increase use of rescue inhalers, snoring, apnea or other Gastro Gastrointestional: Negative bloody stools, change in appetite, difficulty swallowing, reflux, hematemesis, melena stool, loose stool, constipation or other Genitourinary: Negative blood in urine, nocturia, pain with urination or other Musc Musculoskeletal: Negative body pain, back pain, neck pain or other Skin/Breast Skin/Breast: Negative dry skin, itching, rash, unusual bruising, breast lump or other Neuro Neurological: Negative restless legs, confusion, weakness or other Psych Psychocological: Negative abnormal sleep pattern, anxiety, thoughts of hurting self/others, hopelessness or other Lymph Lymphatic: Negative easy bleeding, easy bruising, swollen lymph nodes or other Exam Const Constitutional: Positive conversant, cooperative, in no acute respiratory distress, healthy appearing, well developed, well nourished and good hygiene Head Head: Positive normocephalic and atraumatic; negative cyanosis of lips/distal nose Eyes Eye: Positive clear conjunctiva; negative nystagmus or scleral abnormality Ears Ear: Positive hearing normal and external ears normal; negative hard of hearing Nose Nose: Positive external nose normal and no nasal discharge; negative epistaxis Mouth Mouth: Positive post nasal drip, oral mucosae normal, no lesions, good dentition and posterior oropharynx is adequate; negative malodorous breath or oral thrush present Mallampati Score: II: Mallampati Score Neck Neck: Positive normal visual inspection, full ROM and trachea midline; negative lymphadenopathy, JVD or tender Chest Wall Chest: Positive normal inspection of the chest and symmetric chest movement; negative increased A/P diameter Resp lung sounds: Positive clear to auscultation, good air exchange, normal expiratory time and normal respiratory effort; negative diminished, wheezes, rhonchi, rales, dullness to percussion or wheeze present on forced exhalation Cardio Cardiac: Positive regular rate, regular rhythm, S1 normal and S2 normal; negative murmur GI GI: Positive normal to inspection; negative distended Genitourinary: Positive deferred Musc Musculoskeletal: Positive steady gait and ROM normal; negative kyphosis or scoliosis Skin Pulmonary Skin Exam: Positive intact; negative rash Pulses Pulse: Yes pulses normal x4 extremities Extremities Extremities: Yes capillary refill normal, No clubbing, No cyanosis, No edema Neuro Neurologic: Yes conversant, Yes no focal neuro deficits, Yes normal concentration, Yes understands questions, Yes cooperative, Yes normal cognition, Yes normal coordination Lymph Lymphatic: No lymphadenopathy, No tenderness, No cervical adenopathy Psych Appearance: Positive grossly normal, eye contact and well kempt Mental Status: Positive mental status grossly normal Mood: Positive congruent mood Affect: Positive normal affect Coding Level of Care Code Off vis,est,level 3 Diagnoses COPD (chronic obstructive pulmonary disease) with acute bronchitis J44.0; J20.9 03/24/18 0936 <Electronically signed by Alina MCCOY> Date Alina MCCOY Cosigner Signature: Date (if applicable) CC: Jose Bee MD PULMONARY VISIT REPORT Observed: 02/20/2018 Status: F Source: [facility] 12:59 PM [facility] REPOSITORY [facility] [address] [place] [address] OFFICE VISIT Date of Service: 02/20/18 MR#: [id number] Acct: [id number] Name: CHERIE JIMENEZ Rep #: [id number] : 1945 Provider: Alina Briceño Age/Sex: 72/F Location[place] [facility] [place] Status: Signed Assessment AND Plan Problems 1. COPD (chronic obstructive pulmonary disease) with acute bronchitis J44.0; J20.9 Plan Inhaler therapy with good effects. Adjusting symbicort dose to 80 mcg, hopefully decreased amount of tremors and hoarseness of voice. Discussed proper use of rescue inhaler and expectations after its use. Continue with exercise regimen and using rescue inhaler before exercise. Follow-up 4 weeks. Call the office if symptoms increase. Medications New: Plan Detail Follow Up 1 Month (CSM) HPI medication change: Chief Complaint: hoarsness HPI Comments Details: 72-year-old female here today for follow-up after initiation of Symbicort inhaler. She is feeling somewhat well. Denies cough, chills, fever, or nasal drainage. She states not sure how I am supposed to feel with the change of medication, I have been on so many types that I can't remember how I felt pankaj I used them. I do know that I have a constant hand tremor and hoarse voice all of the time that requires me to clear my throat frequently. Patient admits to feeling short of breath with exertion, such as exercise or one flight of stairs. Uses rescue inhaler prior to exercise. Has shortness of breath when climbing stairs or when carrying something heavy. But I expect to be short of breath when doing that, so I don't use my rescue inhaler. Rests and symptoms completely subside within 1-2 minutes without intervention. Since starting the Symbicort inhaler, the tremors have increased 75% and so has the hoarseness of voice. She uses a spacer with the Symbicort and rinses her mouth after each use. She denies any medication side effects such as sore throat or thrush. Denies recent visits to hospital, urgent care, or need for prednisone or antibiotics. See complete ROS. Intake Vital Signs02/20/18 Height 5 ft 4 in 02/20/18 Weight: 146 lb Intake Visit Reasons: medication change Accompanied by: Self Allergies metaxalone [From Skelaxin] Allergy (Severe, Verified 02/20/18 10:35) palpitations, tachycardia and itching amoxicillin trihydrate [From Augmentin] Allergy (Verified 02/20/18 10:35) Unknown bacitracin [From Polysporin] Allergy (Verified 02/20/18 10:35) Unknown polymyxin B sulfate [From Polysporin] Allergy (Verified 02/20/18 10:35) Unknown potassium clavulanate [From Augmentin] Allergy (Verified 02/20/18 10:35) Unknown propoxyphene napsylate [From Darvocet-N 100] Adverse Reaction (Verified 02/20/18 10:35) Nausea/Vom/Diarrhea BANDAID Allergy (Uncoded 02/20/18 10:35) Unknown Medications Atorvastatin Calcium [Lipitor] 10 mg PO DAILY 08/08/14 [History Confirmed 02/20/18] Biotin [Srinath Biotin] 5,000 mcg PO DAILY 08/08/14 [History Confirmed 02/20/18] Cyanocobalamin (Vitamin B-12) [Vitamin B-12] 1,000 mcg IM QMONTH 08/08/14 [History Confirmed 02/20/18] Estrogens, Conjugated [Premarin] 1 applicatio TOPICAL QMONTH 08/08/14 [History Confirmed 02/20/18] Folic Acid 1 mg PO DAILY 08/08/14 [History Confirmed 02/20/18] Levothyroxine [Synthroid] 50 mcg PO DAILY 08/08/14 [History Confirmed 02/20/18] Polyethylene Glycol 3350 [Miralax] 17 g PO DAILY 08/08/14 [History Confirmed 02/20/18] Famciclovir [Famvir] 500 mg PO TID #21 tab 03/16/16 [Rx Confirmed 02/20/18] Voltaren 0 mg PO Q8H 03/16/16 [History Confirmed 02/20/18] nystatin 100,000 unit/mL oral suspension 5 ml PO TID #250 ml 04/22/17 [Rx Confirmed 02/20/18] albuterol sulfate HFA 90 mcg/actuation aerosol inhaler 2 puff INHALATION Q6H PRN #1 device 01/19/18 [Rx Confirmed 02/20/18] budesonide-formoterol HFA 160 mcg-4.5 mcg/actuation aerosol inhaler 2 puff INHALATION BID 02/20/18 [History Confirmed 02/20/18] diltiazem ER 180 mg capsule,24 hr,extended release 180 mg PO DAILY 02/20/18 [History Confirmed 02/20/18] [facility] Medical History rib removal (Resolved) History of hysterectomy (Resolved) mohs procedure (Resolved) Hearing loss (Chronic) Itching (Acute) Fatigue (Chronic) Hyperlipidemia (Chronic) Pernicious anemia (Chronic) Kidney stone (Acute) Hypothyroidism (Chronic) IBS (irritable bowel syndrome) (Chronic) Migraines (Chronic) Fibromyalgia (Chronic) Bruises easily (Chronic) Squamous cell carcinoma (Chronic) Basal cell carcinoma (BCC) (Chronic) Hemangioma (Chronic) Lentigo (Chronic) Keratosis (Chronic) Other specified disorder of gallbladder (Chronic) Atypical chest pain (Acute) Dyspnea on exertion (Chronic) GERD (gastroesophageal reflux disease) (Chronic) COPD (chronic obstructive pulmonary disease) (Chronic) Tobacco dependence in remission (Chronic) Pulmonary nodule (Chronic) Cough (Acute) PND (post-nasal drip) (Chronic) Acute bronchitis (Acute) Hoarseness (Acute) Oral thrush (Acute) Acute pain of both ears (Acute) Surgical History Hx laparoscopic cholecystectomy (Resolved) H/O foot surgery (Resolved) H/O lithotripsy (Resolved) History of appendectomy (Resolved) H/O cataract removal with insertion of prosthetic lens (Resolved) History of vitrectomy (Resolved) Family History Brother Cancer Father Myocardial infarction Social History Smoking Status: Former smoker second hand exposure: Yes alcohol intake: never substance use type: does not use Review of Systems Const CONSTITUTIONAL: Negative anorexia, body ache, chills, daytime sleepiness, fever(s), night sweats, oral thrush, stops breathing during sleep, weight loss, sleeping in chair, fatigue, weight loss, weight gain, frequent colds, seasonal allergies, other, headache(s) or orthopnea EETM Ear Nose Throat Mouth: Positive hoarseness and post nasal drip; negative hard of hearing, hearing normal, dry mouth in morning, change in vision, itchy eyes, eye pain, swallowing Difficulty, ear pain, nose bleed, headache(s), mouth pain, nasal congestion, nasal discharge, sinus pain, sinus pressure, sore throat or other Cardio Cardiovascular: Negative chest pain, chest pain at rest, chest pain with activity, irregular heart rhythm, edema, shortness of breath when lying down, palpitations, murmur or other Resp Respiratory: Positive as per HPI, shortness of breath shortness of breath: Positive with activity and wheezing; negative pain with cough, chest congestion, cough, chest tightness, pain on inspiration, inhalers, increase use of rescue inhalers, snoring, apnea or other Gastro Gastrointestional: Negative bloody stools, change in appetite, difficulty swallowing, reflux, hematemesis, melena stool, loose stool, constipation or other Genitourinary: Negative blood in urine, nocturia, pain with urination or other Musc Musculoskeletal: Negative body pain, back pain, neck pain or other Skin/Breast Skin/Breast: Negative dry skin, itching, rash, unusual bruising, breast lump or other Neuro Neurological: Negative restless legs, confusion, weakness or other Psych Psychocological: Negative abnormal sleep pattern, anxiety, thoughts of hurting self/others, hopelessness or other Lymph Lymphatic: Negative easy bleeding, easy bruising, swollen lymph nodes or other Exam Const Constitutional: Positive conversant, cooperative, in no acute respiratory distress and healthy appearing Head Head: Positive normocephalic and atraumatic; negative cyanosis of lips/distal nose Eyes Eye: Positive clear conjunctiva Ears Ear: Positive external ears normal; negative hard of hearing or hearing normal Nose Nose: Positive external nose normal and no nasal discharge; negative epistaxis, clear nasal discharge or purulent nasal discharge Mouth Mouth: Positive post nasal drip and oral mucosae normal; negative oral thrush present Neck Neck: Positive normal visual inspection, trachea midline and full ROM Chest Wall Chest: Positive normal inspection of the chest and symmetric chest movement Resp lung sounds: Positive clear to auscultation, diminished and normal expiratory time; negative wheezes or wheeze present on forced exhalation Cardio Cardiac: Positive regular rate and regular rhythm; negative murmur GI GI: Positive normal to inspection and normal bowel sounds Musc Musculoskeletal: Positive steady gait Skin Pulmonary Skin Exam: Positive intact; negative rash or erythema Pulses Pulse: Yes pulses normal x4 extremities Extremities Extremities: Yes capillary refill normal, No clubbing, No edema Neuro Neurologic: Yes conversant, Yes no focal neuro deficits, Yes cooperative, Yes normal cognition, Yes tremor, Yes understands questions, Yes normal concentration, Yes normal coordination Lymph Lymphatic: No lymphadenopathy, No tenderness Psych Appearance: Positive grossly normal Mood: Positive congruent mood Affect: Positive normal affect Coding Level of Care Code Off vis,est,level 3 Diagnoses COPD (chronic obstructive pulmonary disease) with acute bronchitis J44.0; J20.9 02/20/18 1259 <Electronically signed by Alina MCCOY> Date Alina MCCOY Cosigner Signature: Date (if applicable) CC: Jose Bee MD PULMONARY VISIT REPORT Observed: 11/10/2017 Status: F Source: [place] 12:20 PM [facility] REPOSITORY [facility] [address] [place] [address] OFFICE VISIT Date of Service: 11/10/17 MR#: [id number] Acct: [id number] Name: CHERIE JIMENEZ Rep #: [id number] : 1945 Provider: Hossein Espino D.O. Age/Sex: 72/F [place] [facility] [place] Status: Signed Assessment AND Plan 1. COPD (chronic obstructive pulmonary disease) J44.9 Plan The patient has been maintained on Breo as needed albuterol. She appears to be tolerating this regimen without issue. However, she has had multiple issues in the past with recurrent thrush and continues to voice concern over the possibility of it happening again, despite her insistence that she continues to rinse her mouth out after each use. Therefore, I discussed transitioning the patient from a dry powder inhaler to an HFA inhaler which could be utilized with a spacer. The patient is in agreement. Samples for Symbicort provided to the patient. Instructions for use and inhaler technique was reviewed. 2. Lung nodule R91.1 Plan Recommend follow-up CT chest at 18-24 months. Fleishner society recommendations: *nonsolid, ground glass, or partially solid nodules may require longer follow up to exclude indolent adenocarcinoma. Low Risk: (minimal or absent smoking): < 4 mm: No follow up needed >4-6 mm: CT at 12 months, if no change then no further follow up needed >6-8 mm: Initial CT at 6-12 months, then 18-24 months if no change >8 mm: CT at 3, 9, and 24 months, consider dynamic contrast CT, PET, or bx High Risk: < 4 mm: CT at 12 months, if no change then no follow up needed >4-6 mm: initial CT at 6-12 months, then 18-24 months if no change >6-8 mm: CT at 3-6 months, then at 9-12 months, then at 24 months if no change >8 mm: CT at 3, 9, and 24 months, consider dynamic contrast CT, PET, or bx 3. Tobacco dependence in remission F17.201 Plan Ongoing tobacco cessation strongly encouraged. Plan Detail Follow Up 3 Months (CSM) HPI HPI Comments Details: The patient is a 72-year-old female who presents to the clinic today for a routine scheduled follow-up office visit due to underlying COPD. If you recall, the patient initially transferred her care to me from her previous provider at [facility]. The patient presented with an established diagnosis of COPD and has already completed pulmonary rehabilitation. She is being actively monitored in the low-dose screening protocol. The patient's most recent low-dose CT scan of her chest completed in December 2016 through [facility] revealed bilateral subcentimeter pulmonary nodules in severe upper lobe predominant centrilobular emphysema. Pulmonary function testing completed in November 2016 revealed the presence of a moderate obstructive ventilatory defect with a significant response to aerosolized bronchodilators. Lung volumes were within normal limits. There was a severe reduction in diffusing capacity. The patient has been maintained on Breo and as needed Ventolin. A repeat CT chest completed in June 2017 revealed evidence of a 6 x 8.5 mm nodular density in the right upper lobe along with a 4.6 x 1 mm nodule in the left upper lobe. Again noted was diffuse bilateral emphysematous changes. The patient does have a previous smoking history of 1 pack per day 50 years, having quit completely in May 2015. Repeat pulmonary function testing completed in October 2017 revealed evidence of an irreversible moderately severe large airways obstructive ventilatory defect with associated hyperinflation, air trapping and reduction in diffusing capacity. Repeat CT chest without contrast dated October 2017 revealed interval decrease in the size of the right apical pulmonary nodule. Today, the patient reports that she is currently suffering from a migraine. She is currently utilizing her Breo and as needed albuterol, as prescribed. She reports that, on average, she utilizes her rescue inhaler 4 times per week. However, she does report that she is primarily utilizing her albuterol prior to working out. She has baseline, chronic exertional dyspnea, which is unchanged from previous. She has not been evaluated in the emergency department or urgent care clinic for breathing related issues since her last office visit. She voices concern over possible recurrent thrush. She continues to perform aerobic exercise 4-5 times per week. Her weight has been stable. She denies fevers, chills or night sweats. She denies chest pain, dizziness or lightheadedness. Intake Vital Signs11/10/17 Height 5 ft 4 in 11/10/17 Weight: 146 lb Intake Visit Reasons: 3 M FU Accompanied by: Self Allergies metaxalone [From Skelaxin] Allergy (Severe, Verified 07/20/17 07:26) palpitations, tachycardia and itching amoxicillin trihydrate [From Augmentin] Allergy (Verified 07/20/17 07:26) Unknown bacitracin [From Polysporin] Allergy (Verified 07/20/17 07:26) Unknown polymyxin B sulfate [From Polysporin] Allergy (Verified 07/20/17 07:26) Unknown potassium clavulanate [From Augmentin] Allergy (Verified 07/20/17 07:26) Unknown propoxyphene napsylate [From Darvocet-N 100] Adverse Reaction (Verified 07/20/17 07:26) Nausea/Vom/Diarrhea BANDAID Allergy (Uncoded 07/20/17 07:26) Unknown Medications Atorvastatin Calcium [Lipitor] 10 mg PO DAILY 08/08/14 [History Confirmed 07/20/17] Biotin [Srinath Biotin] 5,000 mcg PO DAILY 08/08/14 [History Confirmed 07/20/17] Cyanocobalamin (Vitamin B-12) [Vitamin B-12] 1,000 mcg IM QMONTH 08/08/14 [History Confirmed 07/20/17] Estrogens, Conjugated [Premarin] 1 applicatio TOPICAL QMONTH 08/08/14 [History Confirmed 07/20/17] Folic Acid [Folic Acid] 1 mg PO DAILY 08/08/14 [History Confirmed 07/20/17] Levothyroxine [Synthroid] 50 mcg PO DAILY 08/08/14 [History Confirmed 07/20/17] Polyethylene Glycol 3350 [Miralax] 17 g PO DAILY 08/08/14 [History Confirmed 07/20/17] Famciclovir [Famvir] 500 mg PO TID #21 tab 03/16/16 [Rx Confirmed 07/20/17] Voltaren 0 mg PO Q8H 03/16/16 [History Confirmed 07/20/17] nystatin 100,000 unit/mL oral suspension 5 ml PO TID #250 ml 04/22/17 [Rx Confirmed 07/20/17] fluticasone 100 mcg-vilanterol 25 mcg/dose powder for inhalation 1 ea INHALATION DAILY #3 device 06/08/17 [Rx Confirmed 07/20/17] albuterol sulfate HFA 90 mcg/actuation aerosol inhaler 2 puff INHALATION Q6H PRN #1 device 07/20/17 [Rx Confirmed 07/20/17] [facility] Medical History rib removal (Resolved) mohs procedure (Resolved) Hearing loss (Chronic) Itching (Acute) Fatigue (Chronic) Hyperlipidemia (Chronic) Pernicious anemia (Chronic) Kidney stone (Acute) Hypothyroidism (Chronic) IBS (irritable bowel syndrome) (Chronic) Migraines (Chronic) Fibromyalgia (Chronic) Bruises easily (Chronic) Squamous cell carcinoma (Chronic) Basal cell carcinoma (BCC) (Chronic) Hemangioma (Chronic) Lentigo (Chronic) Keratosis (Chronic) Other specified disorder of gallbladder (Chronic) Atypical chest pain (Acute) Dyspnea on exertion (Chronic) GERD (gastroesophageal reflux disease) (Chronic) COPD (chronic obstructive pulmonary disease) (Chronic) Tobacco dependence in remission (Chronic) Pulmonary nodule (Chronic) Cough (Acute) PND (post-nasal drip) (Chronic) Acute bronchitis (Acute) Hoarseness (Acute) Oral thrush (Acute) Acute pain of both ears (Acute) Surgical History Hx laparoscopic cholecystectomy (Resolved) H/O foot surgery (Resolved) H/O lithotripsy (Resolved) History of appendectomy (Resolved) History of hysterectomy (Resolved) H/O cataract removal with insertion of prosthetic lens (Resolved) History of vitrectomy (Resolved) Family History Brother Cancer Father Myocardial infarction Social History Smoking Status: Former smoker second hand exposure: Yes alcohol intake: never substance use type: does not use Review of Systems Const CONSTITUTIONAL: Positive night sweats and fatigue; negative anorexia, body ache, chills, daytime sleepiness, fever(s), oral thrush, stops breathing during sleep, weight loss, sleeping in chair, weight loss, weight gain, frequent colds, seasonal allergies, other, headache(s) or orthopnea EETM Ear Nose Throat Mouth: Positive hearing normal and hoarseness; negative hard of hearing, dry mouth in morning, change in vision, itchy eyes, eye pain, swallowing Difficulty, ear pain, nose bleed, headache(s), mouth pain, nasal congestion, nasal discharge, post nasal drip, sinus pain, sinus pressure, sore throat or other Cardio Cardiovascular: Negative chest pain, chest pain at rest, chest pain with activity, irregular heart rhythm, edema, shortness of breath when lying down, palpitations, murmur or other Resp Respiratory: Positive as per HPI and shortness of breath shortness of breath: Positive with activity; negative pain with cough, wheezing, chest congestion, cough, chest tightness, pain on inspiration, inhalers, increase use of rescue inhalers, snoring, apnea or other Gastro Gastrointestional: Negative bloody stools, change in appetite, difficulty swallowing, reflux, hematemesis, melena stool, loose stool, constipation or other Genitourinary: Negative blood in urine, nocturia, pain with urination or other Musc Musculoskeletal: Negative body pain, back pain, neck pain or other Skin/Breast Skin/Breast: Negative dry skin, itching, rash, unusual bruising, breast lump or other Neuro Neurological: Negative restless legs, confusion, weakness or other Psych Psychocological: Negative abnormal sleep pattern, anxiety, thoughts of hurting self/others, hopelessness or other Lymph Lymphatic: Negative easy bleeding, easy bruising, swollen lymph nodes or other Exam Const Constitutional: Positive conversant, cooperative, in no acute respiratory distress, well developed, well nourished and good hygiene Head Head: Positive normocephalic and atraumatic; negative cyanosis of lips/distal nose Eyes Eye: Positive clear conjunctiva; negative nystagmus or scleral abnormality Ears Ear: Positive hearing normal and external ears normal; negative hard of hearing Nose Nose: Positive external nose normal; negative epistaxis Mouth Mouth: Positive oral mucosae normal and posterior oropharynx is adequate; negative no lesions, post nasal drip or oral thrush present Mallampati Score: II: Mallampati Score Neck Neck: Positive normal visual inspection and trachea midline; negative lymphadenopathy Chest Wall Chest: Positive symmetric chest movement Normal AP diameter. Resp lung sounds: Positive good air exchange, wheezes wheezing: Positive upper and diminished diminished: Positive bialteral; negative rhonchi or rales Cardio Cardiac: Positive regular rate, regular rhythm, S1 normal and S2 normal; negative rub, gallop or murmur GI GI: Positive normal bowel sounds Soft without distention Genitourinary: Positive deferred [facility] Musculoskeletal: Positive steady gait Skin Pulmonary Skin Exam: Positive intact; negative lesion, ulcers, dermal atrophy or rash Pulses Pulse: Yes Pedal pulses present: Extremities Extremities: No clubbing, No cyanosis, No edema Neuro Neurologic: Yes conversant, Yes no focal neuro deficits, Yes cooperative Lymph Lymphatic: No lymphadenopathy Psych Appearance: Positive grossly normal Mental Status: Positive mental status grossly normal Mood: Positive congruent mood Affect: Positive normal affect Coding Level of Care Code Off vis,est,level 3 Diagnoses COPD (chronic obstructive pulmonary disease) J44.9 Lung nodule R91.1 Tobacco dependence in remission F17.201 11/10/17 1220 <Electronically signed by Hossein Espino DO> Date Hossein Espino DO Cosigner Signature: Date (if applicable) CC: Jose Bee MD PULMONARY FUNCTION Observed: 11/01/2017 Status: F Source: SARAH TEST 12:32 PM [facility] REPOSITORY [facility] Pulmonary Services/Neurology [address] [place] [address] MR#: [id number] Acct: [id number] Name: CHERIE JIMENEZ Rep #: [id number] : 1945 72 From: Hossein Espino DO Referring Dr: Hossein Espino D.O. Status: REG CLI Ordering Dr: Date: Location: [facility] Sex: F C INTRODUCTION: The patient is a 72-year-old female currently under the care of myself the presents for pulmonary function testing secondary to a diagnosis of lung nodule. Respiratory therapy reports good patient effort. Bronchodilators were used during testing. INTERPRETATION: Forced expiration spirometry demonstrates the presence of a moderately severe large airways obstructive ventilatory defect. There was no significant response to aerosolized bronchodilators. Spirograms are of good quality do not plateau indicating slow emptying of the lungs. The respiratory flow volume loop reveals decreased expiratory flow rates at all lung volumes consistent with airways obstruction. Body plethysmography was performed and reveals an elevated TLC and RV, indicative of underlying hyperinflation and air-trapping. Diffusing capacity by single breath CO is moderately reduced at 47% of predicted. IMPRESSION: These pulmonary function studies demonstrate the presence of an irreversible moderately severe large airways obstructive ventilatory defect with associated hyperinflation, air trapping and reduction in diffusing capacity. 11/01/17 1232 <Electronically signed by Hossein Espino DO> Date Hossein Espino DO CC: Hossein Espino D.O.; Jose Bee MD Date Dictated: 11/01/17 1231 Date Transcribed: 11/01/17 1231 Restaurant District Manager: DB Signed CHEST WITHOUT Observed: 11/01/2017 Status: F Source: SARAH CONTRAST 7:43 AM [facility] REPOSITORY [facility] Imaging Services [address] [place] [address] Chest without Contrast MR#: [id number] Acct: [id number] Name: CHERIE JIMENEZ Rep #: [id number] : 1945 F 72 From: Paolo Ahumada PCP: Jose Bee MD Status: REG CLI Study: Chest without Contrast Date of Exam: 11/01/17 Exam# [id number] Ordering Dr: Hossein Espino DO STUDY: CT CHEST WITHOUT CONTRAST REASON FOR EXAM: Female, 72 years old. Lung nodule for follow-up. RADIATION DOSAGE (If Supplied By Facility): CTDIvol = ( 7.32 ) mGy, DLP = ( 265.03 ) mGycm TECHNIQUE: Transaxial imaging was performed without the administration of intravenous contrast material. Individualized dose optimization techniques were used for this CT. COMPARISON: July 08, 2017. Chest x-ray September 29, 2015. FINDINGS: Diffuse emphysematous changes. Cardiac lung nodule measuring 0.6 x 0.3 cm, axial image 46 series 4, decreased in size since the prior study where it measured 0.9 x 0.6 cm. Coronary artery calcifications. Heart is not enlarged. No pericardial effusion. Calcified mediastinal lymph nodes. Normal hilar regions. Normal unenhanced pulmonary arteries. Normal aorta arch and descending thoracic aorta. Normal osseous structures. Scattered calcifications in the spleen. CT/Chest without Contrast IMPRESSION: Decrease in size of noncalcified right apical lung nodule which could be related to a resolving nodule or differences in plane of sectionng. Recommend follow-up CT in 18-24 months from June 2017. COPD. Old granulomatous disease. Coronary artery calcifications. Electronically Signed: Paolo Ahumada MD at 5:21 EDT , Service support , CC: Hossein Espino D.O.; Jose Bee MD Restaurant District Manager: Signed PROGRESS Observed: 10/06/2017 Status: COMPLETED Source: EXETER 3:15 PM [facility] REPOSITORY HNO ID: [id number] Author: Sravani Hdez Service: (none) Author Type: Physician Type: Progress Notes Filed: 10/06/2017 3:47 PM Note Text: Cherie Jimenez is a 72 year old female. Patient presents with: Established Patient Has worse neuropathy pain of paresthesia Family hx of tremors of intention that impacts hand writing and some hand dexterity More neck pain and arm pain radicular. Does have some scalene muscle tightness and spasm that can cause her neck and head pain. This is from her COPD and the accessory muscles Hoarseness of voice COPD and has stopped smoking and trying to avoid oxygen. Her pulmonary medications may intense her neuro symptoms She tries to do her pulmonary rehab Does a few days a week of 75' work out with weights, free weights, weight machines, and treadmill voltaren pills helped and gave her refill since she is prudent with medications Going to [place] soon Dr Bee has been a great asset Asked to monitor her BP more Component Latest Ref Rng AND Units 09/05/2013 08/28/2014 12/15/2015 10/06/2016 WBC 3.70 - 11.00 k/uL 7.86 RBC 3.90 - 5.20 m/uL 5.23 (H) Hemoglobin 11.5 - 15.5 g/dL 16.0 (H) Hematocrit 36.0 - 46.0 % 48.0 (H) MCV 80.0 - 100.0 fL 91.8 MCH 26.0 - 34.0 pG 30.6 MCHC 30.5 - 36.0 g/dL 33.3 RDW-CV 11.5 - 15.0 % 13.2 Platelet Count 150 - 400 k/uL 248 MPV 9.0 - 12.7 fL 11.6 Neut% % 61.8 Abs Neut (ANC) 1.45 - 7.50 k/uL 4.86 Lymph% % 27.0 Abs Lymph 1.00 - 4.00 k/uL 2.12 [place]illingham% % 7.3 Abs [place]ham 0.00 - 0.86 k/uL 0.57 Eosin% % 3.4 Abs Eosin 0.00 - 0.45 k/uL 0.27 Baso% % 0.5 Abs Baso 0.00 - 0.10 k/uL 0.04 Diff Type Auto Diff Protein, Total 6.0 - 8.4 g/dL 6.8 Albumin 3.5 - 5.0 g/dL 4.4 Calcium 8.5 - 10.5 mg/dL 10.2 Bilirubin, Total 0.0 - 1.5 mg/dL 0.6 Alkaline Phosphatase 40 - 150 U/L 91 AST 7 - 40 U/L 21 Glucose 65 - 100 mg/dL 89 BUN 8 - 25 mg/dL 24 Creatinine 0.70 - 1.40 mg/dL 0.89 Sodium 132 - 148 mmol/L 141 Potassium 3.5 - 5.0 mmol/L 4.7 Chloride 98 - 110 mmol/L 106 CO2 23 - 32 mmol/L 22 (L) Anion Gap 0 - 15 mmol/L 13 ALT 0 - 45 U/L 12 eGFR- >60 eGFR-All Other Races . >60 MPA IgG, Serum 717 - 1,411 mg/dL 643 (L) 582 (L) 619 (L) 537 (L) MPA IgA, Serum 78 - 391 mg/dL 161 160 181 134 MPA IgM, Serum 53 - 334 mg/dL 129 126 142 85 MPA [place], Serum 534 - 1,267 mg/dL 514 (L) 460 (L) 587 543 MPA Lambda, Serum 253 - 653 mg/dL 365 311 354 281 MPA [place]/Lambda Ratio 1 - 3 1.41 1.48 1.66 1.93 MPA Result No M protein is identified. No M protein is identified. No M protein is identified. No M protein is identified. No M protein is identified. Staff Review ([facility]) Reviewed by Enoch Pearson M.D. ([id number]) Reviewed by Enoch Pearson M.D. ([id number]) Reviewed by Gabe Guadalupe MD ([id number]) Reviewed by Ho Fritz MD. ([id number]) Interpretation (MPA) [place] Free, Urine 0.4 - 15.1 mg/L Lambda Free, Urine 0.8 - 10.1 mg/L K/L Ratio, Urine 0.46 - 4.00 [place] Free, Serum 3.3 - 19.4 mg/L Lambda Free, Serum 5.7 - 26.3 mg/L K/L Ratio, Serum 0.26 - 1.65 IgA 78 - 391 mg/dL 152 Transglutaminase Ab, IgA <20 Units 3 Interpretation (Celiac Screen) TTGNG No serologic evidence of celiac disease. Hemoglobin A1C 4.0 - 6.0 % Estimated Average Glucose mg/dL Result ([facility]) No M protein is identified. No M protein is identified. No M protein is identified. No M protein is identified. No M protein is identified. Staff Review ([facility]) Reviewed by Enoch Pearson M.D. ([id number]) Reviewed by Enoch Pearson M.D. ([id number]) Reviewed by Gabe Guadalupe MD ([id number]) Reviewed by Ho Fritz MD. ([id number]) B2 Microglobulin 0.3 - 1.9 mg/L LD 100 - 220 U/L Uric Acid 2.0 - 7.0 mg/dL Vitamin B6, Plasma 15.0 (L) . . . Vitamin B1, WB 105 . . . Vitamin B12 221 - 700 pg/mL 556 OARRS reviewed Medications and Allergies Reviewed data reviewed if done THIS NOTE IS FOR AT FIRST FOR MY DOCUMENTATION TO PROVIDE CARE, HELP INSURANCE COMPANY AND COLLEAGUES TO HAVE NEUROLOGICAL CONTEXT OF MY , AND FOR MY PERSONAL RECORDING TO FACILITATE FUTURE CARE BY HAVING A WRITTEN DOCUMENT MEMORY OF OUR CONSULT TOGETHER . THANK YOU FOR UNDERSTANDING THIS OFFICE NOTE IS A PHYSICIAN BASED DOCUMENT FOR COMMUNICATION AND CARE. ACTIVE PROBLEM LIST Unspecified Constipation Personal History of Other Malignant Neoplasm of Skin Abdominal Pain, Other Specified Site Fibromyalgia Tingling B12 Deficiency Hypothyroid Peripheral Neuropathy Head Pain Migraine Loss of Smell Hyperglycemia Alopecia PAST SURGICAL HISTORY Procedure Laterality Date - CATARACT EXTRACTION HX right eye - CHOLECYSTECTOMY 07/2014 - COLONOSCOP W/ OR W/O [facility] SPEC 01/31/2013 Colonoscopy - PAST SURGICAL HISTORY OF hyster - PAST SURGICAL HISTORY OF appendectomy - PAST SURGICAL HISTORY OF tubal - PAST SURGICAL HISTORY OF tonsils - PAST SURGICAL HISTORY OF 2000 Moh's procedure Current Outpatient Prescriptions on File Prior to Visit: albuterol HFA (VENTOLIN HFA) 90 mcg/actuation inhaler Inhale 2 Puffs as instructed every 4 hours as needed. dicyclomine (BENTYL) 10 mg capsule Take 10 mg by mouth before meals and at bedtime. prn fluticasone-vilanterol (BREO ELLIPTA) 100-25 mcg/dose inhaler Inhale 1 Inhalation as instructed once daily. Minoxidil 5 % soln Apply to affected area once daily. biotin tab Take 5,000 mcg by mouth once daily. folic acid 1 mg tablet Take 1 tablet by mouth once daily. levothyroxine 50 mcg tablet Take 1 tablet by mouth once daily. CYANOCOBALAMIN 1,000 MCG/ML INJECTION once monthly MIRALAX 100 % ORAL POWDER takes 17gm once a day with 8 oz liquid. ASPIRIN 81MG TABLET take one tablet daily LIPITOR 10MG TABLET take one tablet daily MAGNESIUM OXIDE (MAG-OXIDE ORAL) Take 400 mg by mouth as directed. Uses 3 x weekly Cholecalciferol, Vitamin D3, (VITAMIN D-3) 2,000 unit cap Take by mouth once daily. erythromycin ophthalmic ointment Use 1 application in the right eye daily at bedtime. albuterol HFA (PROVENTIL HFA) 90 mcg/actuation inhaler Inhale 2 Puffs as instructed four times daily as needed for Wheezing/Shortness of Breath. conjugated estrogens (PREMARIN) vaginal cream To be used vaginally 2 times a month No current facility-administered medications on file prior to visit. Social History Marital status: Spouse name: Misael Years of education: Number of children: 3 Occupational History Occupation Employer Comment [employer] Social History Main Topics Smoking status: Former Smoker Packs/day: 1.00 Years: 50.00 Types: Cigarettes Start date: 1965 Quit date: 05/19/2015 Smokeless tobacco: Never Used Alcohol use: No family history includes Coronary Artery Disease in her father; Prostate Cancer in her brother; Senile Dementia in her mother; hemiplegic migraines in her son; syringomyelia in her father; tremors in her father. There were no vitals filed for this visit. HEENT: Brisa cephalic atraumatic No palpable masses Sclera is unremarkable Throat is clear and no erythema Neck is supple Full range of motion of neck passively and with active range of motion. There is marked tenderness and reproducible pain of the Scalene muscles There is a no head tiltNo thyromegaly or masses Awake and alert, orientated to person, place, and time Speech is clear: fluent, intelligible. No aphasic errors Comprehension is intact Able to participate in medical decision plan of care Cranial Nerve: Primary gaze is conjugate EOMI Visual Pedro are full to confrontation Equal grimace Palate is midline Tongue is midline Motor: Full power of arms and legs proximally and distally Normal tone of arms and legs throughout No drift in limb testing of arms Coordination: No dysmetria in limb testing of arms (finger to nose to finger) No dysmetria in limb testing of legs (toe to finger) (heel to rea) ELIO normal for finger tapping and hand opening/closing ELIO normal for toe tapping Mild intention tremors No extrapyramidal issues Sensory: absent Romberg Normal toe position and vibratory Normal pin prick Gait Able to rise from chair without help No trunk ataxia Able to ambulate without help Reflexes: Symmetric in arms and legs IMPRESSION/PLAN: Stable neuro exam with her intention tremors and small fiber neuropathy Voltaren refilled PRN robaxin Exercise Annual follow up Patient verbalizes understanding and I have addressed concerns and questions at this vPatient verbalizes understanding and I have addressed concerns and questions at this visit . During our face to face clinical encounter we discussed my concerns neurologically in terms of diagnosis, impact on health and activities of living, and addressed questions. I tried to reassure the patient and also address questions. I explained to the patient to call if any questions, to review results, and I want to see them return for neurological follow up as needed and can do mychart as next steps of care coordination. No orders found for this visit on 10/06/17. ACTIVE PROBLEM LIST Unspecified Constipation Personal History of Other Malignant Neoplasm of Skin Abdominal Pain, Other Specified Site Fibromyalgia Tingling B12 Deficiency Hypothyroid Peripheral Neuropathy Head Pain Migraine Loss of Smell Hyperglycemia Alopecia Sravani Hdez D.O ELECTRONICALLY SIGNED October 06, 2017 Adult Neurology/ Board Certified Department of Neuro Muscular of the Neurological [place] [facility] Clerkships Clinical [facility] [employer] Faculty Appointment [facility] Faculty Appointment [facility] [place] [address] [place] [address]/ [address] [place], [place] [address] Appt: [phone] 1. This office note has been dictated and may contain minor typographic errors that escaped review 2. The nursing staff and medical assistants are a major part of YOUR TREATMENT TEAM and will be handling your phone calls and inquiries, if any. Unless explicitly told otherwise at the time of your office visit, your study results and ensuing treatment plans will be discussed during your follow-up appointment. If you do not have a follow-up appointment and wish to discuss any issues directly with me, please feel free to obtain one. 3. It is my practice to not fill disability or any other insurance-related forms/documention. All of the office notes, study results, and other pertinent documentation generated as part of your evaluation will be available to you and to your Primary Care Physician (PCP). Use of this material to complete such forms will be at the discretion of your PCP/referring physician LULY Observed: 10/06/2017 Status: COMPLETED Source: EXETER 2:40 PM [facility] REPOSITORY Office Visit (NEADMN) JOECHERIE MÁRQUEZ ([id number]) 1945 F B Date Time Provider Department 10/06/17 2:40 PM SRAVANI HDEZ During your visit today, we recorded the following information about you: Pulse Blood pressure 72/minute 144/70 Sravani Hdez DO 10/06/2017 3:47 PM Signed Cherie Jimenez is a 72 year old female. Patient presents with: Established Patient Has worse neuropathy pain of paresthesia Family hx of tremors of intention that impacts hand writing and some hand dexterity More neck pain and arm pain radicular. Does have some scalene muscle tightness and spasm that can cause her neck and head pain. This is from her COPD and the accessory muscles Hoarseness of voice COPD and has stopped smoking and trying to avoid oxygen. Her pulmonary medications may intense her neuro symptoms She tries to do her pulmonary rehab Does a few days a week of 75' work out with weights, free weights, weight machines, and treadmill voltaren pills helped and gave her refill since she is prudent with medications Going to [place] soon Dr Bee has been a great asset Asked to monitor her BP more Component Latest Ref Rng AND Units 09/05/2013 08/28/2014 12/15/2015 10/06/2016 WBC 3.70 - 11.00 k/uL 7.86 RBC 3.90 - 5.20 m/uL 5.23 (H) Hemoglobin 11.5 - 15.5 g/dL 16.0 (H) Hematocrit 36.0 - 46.0 % 48.0 (H) MCV 80.0 - 100.0 fL 91.8 MCH 26.0 - 34.0 pG 30.6 MCHC 30.5 - 36.0 g/dL 33.3 RDW-CV 11.5 - 15.0 % 13.2 Platelet Count 150 - 400 k/uL 248 MPV 9.0 - 12.7 fL 11.6 Neut% % 61.8 Abs Neut (ANC) 1.45 - 7.50 k/uL 4.86 Lymph% % 27.0 Abs Lymph 1.00 - 4.00 k/uL 2.12 Dillingham% % 7.3 Abs [place]ham 0.00 - 0.86 k/uL 0.57 Eosin% % 3.4 Abs Eosin 0.00 - 0.45 k/uL 0.27 Baso% % 0.5 Abs Baso 0.00 - 0.10 k/uL 0.04 Diff Type Auto Diff Protein, Total 6.0 - 8.4 g/dL 6.8 Albumin 3.5 - 5.0 g/dL 4.4 Calcium 8.5 - 10.5 mg/dL 10.2 Bilirubin, Total 0.0 - 1.5 mg/dL 0.6 Alkaline Phosphatase 40 - 150 U/L 91 AST 7 - 40 U/L 21 Glucose 65 - 100 mg/dL 89 BUN 8 - 25 mg/dL 24 Creatinine 0.70 - 1.40 mg/dL 0.89 Sodium 132 - 148 mmol/L 141 Potassium 3.5 - 5.0 mmol/L 4.7 Chloride 98 - 110 mmol/L 106 CO2 23 - 32 mmol/L 22 (L) Anion Gap 0 - 15 mmol/L 13 ALT 0 - 45 U/L 12 eGFR- >60 eGFR-All Other Races . >60 MPA IgG, Serum 717 - 1,411 mg/dL 643 (L) 582 (L) 619 (L) 537 (L) MPA IgA, Serum 78 - 391 mg/dL 161 160 181 134 MPA IgM, Serum 53 - 334 mg/dL 129 126 142 85 MPA [place], Serum 534 - 1,267 mg/dL 514 (L) 460 (L) 587 543 MPA Lambda, Serum 253 - 653 mg/dL 365 311 354 281 MPA [place]/Lambda Ratio 1 - 3 1.41 1.48 1.66 1.93 MPA Result No M protein is identified. No M protein is identified. No M protein is identified. No M protein is identified. No M protein is identified. Staff Review ([facility]) Reviewed by Enoch Pearson M.D. ([id number]) Reviewed by Enoch Pearson M.D. ([id number]) Reviewed by Gabe Guadalupe MD ([id number]) Reviewed by Ho Fritz MD. ([id number]) Interpretation ([facility]) [place] Free, Urine 0.4 - 15.1 mg/L Lambda Free, Urine 0.8 - 10.1 mg/L K/L Ratio, Urine 0.46 - 4.00 [place] Free, Serum 3.3 - 19.4 mg/L Lambda Free, Serum 5.7 - 26.3 mg/L K/L Ratio, Serum 0.26 - 1.65 IgA 78 - 391 mg/dL 152 Transglutaminase Ab, IgA <20 Units 3 Interpretation (Celiac Screen) TTGNG No serologic evidence of celiac disease. Hemoglobin A1C 4.0 - 6.0 % Estimated Average Glucose mg/dL Result ([facility]) No M protein is identified. No M protein is identified. No M protein is identified. No M protein is identified. No M protein is identified. Staff Review ([facility]) Reviewed by Enoch Pearson M.D. ([id number]) Reviewed by Enoch Pearson M.D. ([id number]) Reviewed by Gabe Guadalupe MD ([id number]) Reviewed by Ho Fritz MD. ([id number]) B2 Microglobulin 0.3 - 1.9 mg/L LD 100 - 220 U/L Uric Acid 2.0 - 7.0 mg/dL Vitamin B6, Plasma 15.0 (L) . . . Vitamin B1, WB 105 . . . Vitamin B12 221 - 700 pg/mL 556 OARRS reviewed Medications and Allergies Reviewed data reviewed if done THIS NOTE IS FOR AT FIRST FOR MY DOCUMENTATION TO PROVIDE CARE, HELP INSURANCE COMPANY AND COLLEAGUES TO HAVE NEUROLOGICAL CONTEXT OF MY , AND FOR MY PERSONAL RECORDING TO FACILITATE FUTURE CARE BY HAVING A WRITTEN DOCUMENT MEMORY OF OUR CONSULT TOGETHER . THANK YOU FOR UNDERSTANDING THIS OFFICE NOTE IS A PHYSICIAN BASED DOCUMENT FOR COMMUNICATION AND CARE. ACTIVE PROBLEM LIST Unspecified Constipation Personal History of Other Malignant Neoplasm of Skin Abdominal Pain, Other Specified Site Fibromyalgia Tingling B12 Deficiency Hypothyroid Peripheral Neuropathy Head Pain Migraine Loss of Smell Hyperglycemia Alopecia PAST SURGICAL HISTORY Procedure Laterality Date - CATARACT EXTRACTION HX right eye - CHOLECYSTECTOMY 07/2014 - COLONOSCOP W/ OR W/O [facility] SPEC 01/31/2013 Colonoscopy - PAST SURGICAL HISTORY OF hyster - PAST SURGICAL HISTORY OF appendectomy - PAST SURGICAL HISTORY OF tubal - PAST SURGICAL HISTORY OF tonsils - PAST SURGICAL HISTORY OF 2000 Moh's procedure Current Outpatient Prescriptions on File Prior to Visit: albuterol HFA (VENTOLIN HFA) 90 mcg/actuation inhaler Inhale 2 Puffs as instructed every 4 hours as needed. dicyclomine (BENTYL) 10 mg capsule Take 10 mg by mouth before meals and at bedtime. prn fluticasone-vilanterol (BREO ELLIPTA) 100-25 mcg/dose inhaler Inhale 1 Inhalation as instructed once daily. Minoxidil 5 % soln Apply to affected area once daily. biotin tab Take 5,000 mcg by mouth once daily. folic acid 1 mg tablet Take 1 tablet by mouth once daily. levothyroxine 50 mcg tablet Take 1 tablet by mouth once daily. CYANOCOBALAMIN 1,000 MCG/ML INJECTION once monthly MIRALAX 100 % ORAL POWDER takes 17gm once a day with 8 oz liquid. ASPIRIN 81MG TABLET take one tablet daily LIPITOR 10MG TABLET take one tablet daily MAGNESIUM OXIDE (MAG-OXIDE ORAL) Take 400 mg by mouth as directed. Uses 3 x weekly Cholecalciferol, Vitamin D3, (VITAMIN D-3) 2,000 unit cap Take by mouth once daily. erythromycin ophthalmic ointment Use 1 application in the right eye daily at bedtime. albuterol HFA (PROVENTIL HFA) 90 mcg/actuation inhaler Inhale 2 Puffs as instructed four times daily as needed for Wheezing/Shortness of Breath. conjugated estrogens (PREMARIN) vaginal cream To be used vaginally 2 times a month No current facility-administered medications on file prior to visit. Social History Marital status: Spouse name: Misael Years of education: Number of children: 3 Occupational History Occupation Employer Comment [employer]* Social History Main Topics Smoking status: Former Smoker Packs/day: 1.00 Years: 50.00 Types: Cigarettes Start date: 1965 Quit date: 05/19/2015 Smokeless tobacco: Never Used Alcohol use: No family history includes Coronary Artery Disease in her father; Prostate Cancer in her brother; Senile Dementia in her mother; hemiplegic migraines in her son; syringomyelia in her father; tremors in her father. There were no vitals filed for this visit. HEENT: Brisa cephalic atraumatic No palpable masses Sclera is unremarkable Throat is clear and no erythema Neck is supple Full range of motion of neck passively and with active range of motion. There is marked tenderness and reproducible pain of the Scalene muscles There is a no head tiltNo thyromegaly or masses Awake and alert, orientated to person, place, and time Speech is clear: fluent, intelligible. No aphasic errors Comprehension is intact Able to participate in medical decision plan of care Cranial Nerve: Primary gaze is conjugate EOMI Visual Pedro are full to confrontation Equal grimace Palate is midline Tongue is midline Motor: Full power of arms and legs proximally and distally Normal tone of arms and legs throughout No drift in limb testing of arms Coordination: No dysmetria in limb testing of arms (finger to nose to finger) No dysmetria in limb testing of legs (toe to finger) (heel to rea) ELIO normal for finger tapping and hand opening/closing ELIO normal for toe tapping Mild intention tremors No extrapyramidal issues Sensory: absent Romberg Normal toe position and vibratory Normal pin prick Gait Able to rise from chair without help No trunk ataxia Able to ambulate without help Reflexes: Symmetric in arms and legs IMPRESSION/PLAN: Stable neuro exam with her intention tremors and small fiber neuropathy Voltaren refilled PRN robaxin Exercise Annual follow up Patient verbalizes understanding and I have addressed concerns and questions at this vPatient verbalizes understanding and I have addressed concerns and questions at this visit . During our face to face clinical encounter we discussed my concerns neurologically in terms of diagnosis, impact on health and activities of living, and addressed questions. I tried to reassure the patient and also address questions. I explained to the patient to call if any questions, to review results, and I want to see them return for neurological follow up as needed and can do mychart as next steps of care coordination. No orders found for this visit on 10/06/17. ACTIVE PROBLEM LIST Unspecified Constipation Personal History of Other Malignant Neoplasm of Skin Abdominal Pain, Other Specified Site Fibromyalgia Tingling B12 Deficiency Hypothyroid Peripheral Neuropathy Head Pain Migraine Loss of Smell Hyperglycemia Alopecia Sravani Hdez D.O ELECTRONICALLY SIGNED October 06, 2017 Adult Neurology/ Board Certified Department of Neuro Muscular of the Neurological [place] [facility] [employer] Faculty Appointment [facility] Faculty Appointment [address]/ [place] [address] Appt: [phone] 1. This office note has been dictated and may contain minor typographic errors that escaped review 2. The nursing staff and medical assistants are a major part of YOUR TREATMENT TEAM and will be handling your phone calls and inquiries, if any. Unless explicitly told otherwise at the time of your office visit, your study results and ensuing treatment plans will be discussed during your follow-up appointment. If you do not have a follow-up appointment and wish to discuss any issues directly with me, please feel free to obtain one. 3. It is my practice to not fill disability or any other insurance-related forms/documention. All of the office notes, study results, and other pertinent documentation generated as part of your evaluation will be available to you and to your Primary Care Physician (PCP). Use of this material to complete such forms will be at the discretion of your PCP/referring physician Referring Provider: SRAVANI HDEZ [[id number]] Allergies As of Date: 10/06/2017 Noted Allergy Reaction ADHESIVE TAPE (ROSINS) 02/21/2004 AUGMENTIN (AMOXICILLIN-POT CLAVUL*10/17/2009 11 - Vomiting HYDROCODONE-ACETAMINOPHEN 10/06/2016 8 - GI Upset Comments: Severe vomitting POLYSPORIN (BACITRACIN-POLYMYXIN *11/06/2009 7 - Swelling PROPOXYPHENE 02/21/2004 11 - Vomiting SKELAXIN (METAXALONE) 11/25/2015 9 - Itching Comments: Rapid heartbeat Date Reviewed: 10/06/2017 Reviewed by: Marie Rodríguez - Fully Assessed Reason for Visit: Established Patient [175] Visit Diagnosis:Action tremor [G25.2] Order(s):diclofenac, EC, (VOLTAREN) 75 mg EC tabletTake 1 tablet by mouth three times daily as needed (for pain.).Disp: 90 tabletRfl: 5 methocarbamol (ROBAXIN) 500 mg tabletTake 1 tablet by mouth three times daily as needed.Disp: 40 tabletRfl: 1 Prescriptions as of 10/06/2017 Sig: PEPCID AC ORAL Take by mouth. ALBUTEROL SULFATE HFA 90 MCG/* Inhale 2 Puffs as instructed * DICYCLOMINE 10 MG CAPSULE Take 10 mg by mouth before me* FLUTICASONE 100 MCG-VILANTERO* Inhale 1 Inhalation as instru* MINOXIDIL 5 % TOPICAL SOLUTION Apply to affected area once * BIOTIN 2,500 MCG TABLET Take 5,000 mcg by mouth once * * FOLIC ACID 1 MG TABLET Take 1 tablet by mouth once d* * LEVOTHYROXINE 50 MCG TABLET Take 1 tablet by mouth once d* * CYANOCOBALAMIN (VIT B-12) 1,0* once monthly * MIRALAX 17 GRAM/DOSE ORAL POW* takes 17gm once a day with 8 * * ASPIRIN 81 MG TABLET take one tablet daily * LIPITOR 10 MG TABLET take one tablet daily DICLOFENAC SODIUM 75 MG TABLE* Take 1 tablet by mouth three * METHOCARBAMOL 500 MG TABLET Take 1 tablet by mouth three * MAG-OXIDE ORAL Take 400 mg by mouth as direc* CHOLECALCIFEROL (VITAMIN D3) * Take by mouth once daily. ERYTHROMYCIN 5 MG/GRAM (0.5 %* Use 1 application in the righ* ALBUTEROL SULFATE HFA 90 MCG/* Inhale 2 Puffs as instructed * * CONJUGATED ESTROGENS 0.625 MG* To be used vaginally 2 times * Problem List As Of Date 10/06/2017 Noted Resolved CONSTIPATION NOS [K59.00] INVALID FOR* PERS HX SKIN MALIGNANCY NEC [Z85.828] INVALID FOR* Abdominal Pain, Other Specified Site [R10.9] Fibromyalgia [M79.7] Tingling [R20.2] INVALID FOR* B12 deficiency [E53.8] INVALID FOR* Hypothyroid [E03.9] INVALID FOR* Peripheral neuropathy [G62.9] INVALID FOR* Head pain [R51] INVALID FOR* Migraine [G43.909] INVALID FOR* Loss of smell [R43.0] INVALID FOR* Hyperglycemia [R73.9] INVALID FOR* Alopecia [L65.9] INVALID FOR* Prescriptions ordered this encounter Disp Refills Start End DICLOFENAC SODIUM 75 MG TABLET,DELAY* 90 t* 5 10/06/2017 10/06/2017 Route: ORAL Sig: Take 1 tablet by mouth three times daily as needed (for pain.). DICLOFENAC SODIUM 75 MG TABLET,DELAY* 90 t* 5 10/06/2017 Route: ORAL Sig: Take 1 tablet by mouth three times daily as needed (for pain.). METHOCARBAMOL 500 MG TABLET 40 t* 1 10/06/2017 Class: Print RX Route: ORAL Sig: Take 1 tablet by mouth three times daily as needed. Medications Discontinued During This Encounter diclofenac, EC, (VOLTAREN) 75 mg EC * 90 t* 5 10/06/2017 10/06/2017 Route: ORAL Sig: Take 1 tablet by mouth three times daily as needed (for pain.). Disc: Reason for discontinue is not on file. Encounter Status:Closed by SRAVANI HDEZ DO on 10/06/17 CBC W/DIFF, AUTOMATED Collected: 09/23/2017 Status: F Source: SARAH 9:37 AM [facility] REPOSITORY Order Comment: Order Date: 09/22/17 Order Info: 0184-1 - CBCD TYPE CODE TESTS RESULT OUT OF RANGE REFERENCE UNITS LAB L100.1000 4.4-11.0 K/mm3 Normal WBC 6.0 LAB L100.1200 4.2-5.4 M/mm3 Normal RBC 5.08 LAB L100.1300 12.0-15.0 g/dl Normal HGB 15.0 LAB L100.1400 37-47 % Normal HCT 45.5 LAB L100.1500 81-99 fL Normal MCV 89.6 LAB L100.1600 27.0-32.0 pg Normal MCH 29.5 LAB L100.1700 32-36 g/gl Normal MCHC 33.0 LAB L100.1810 11.6-14.6 % Normal RDW CV 13.2 LAB L100.1820 35.1-43.9 fl Normal RDW SD 43.3 LAB L100.1900 150-450 K/mm3 Normal PLT 231 LAB L100.2000 6.2-12.0 fl Normal MPV 11.0 LAB L100.2100 47-70 % Normal NEUT% 63.2 LAB L100.2200 19-41 % Normal LY% 24.9 LAB L100.2300 0-10 % Normal MONO% 7.9 LAB L100.2400 0-5 % Normal EO% 3.3 LAB L100.2500 0-1 % Normal BASO% 0.5 LAB L100.2550 0.0-0.9 % Normal IM GRAN % 0.200 Result Comment: IG% - Immature Granulocytes (promyelocytes, myelocytes and metamyelocytes) > 1% indicates that a LEFT SHIFT is Present. LAB L100.2620 2.0-7.7 X10 3/uL Normal Absolute Neut 3.8 LAB L100.2720 0.83-4.51 X10 3/ul Normal Absolute Lymph 1.49 Performed By: #### L100.0100, L503.0105, L506.1000, L500.4050, L500.4100, L501.9520 #### [facility] [address] [place], [place], [address] VITAMIN B12 Collected: 09/23/2017 Status: F Source: [place] 9:37 [facility] Order Comment: Order Date: 09/22/17 Order Info: 2132-9 - B12 Order Info: [id number] - VITD25 TYPE CODE TESTS RESULT OUT OF RANGE REFERENCE UNITS LAB L503.0105 211-911 pg/mL Normal Vitamin B12 646 Performed By: #### L100.0100, L503.0105, L506.1000, L500.4050, L500.4100, L501.9520 #### [facility] [address] [place], [place], [address] VITAMIN D,25 HYDROXY Collected: 09/23/2017 Status: F Source: [place] 9:37 AM [facility] REPOSITORY Order Comment: Order Date: 09/22/17 Order Info: 2132-9 - B12 Order Info: [id number] - VITD25 TYPE CODE TESTS RESULT OUT OF RANGE REFERENCE UNITS LAB L506.1000 29.95-100.01 ng/mL Normal Vitamin D 31.2 25-OH Result Comment: Vitamin D 25(OH) Status Range Deficiency <20 ng/mL (50nmol/L) Insuffciency 20 - 30 ng/mL (50 - 75 nmol/L) Sufficiency 30 - 100 ng/mL (75 - 250 nmol/L) Toxicity >100 ng/mL (>250 nmol/L) Performed By: #### L100.0100, L503.0105, L506.1000, L500.4050, L500.4100, L501.9520 #### [facility] [address] [place], [address] COMPREHENSIVE METABOLIC Collected: 09/23/2017 Status: F [facility] AM [facility] REPOSITORY Order Comment: Order Date: 09/22/17 Order Info: [id number] - CMP Order Info: [id number] - LIPID Order Info: 3016-3 - TSH TYPE CODE TESTS RESULT OUT OF RANGE REFERENCE UNITS LAB L501.0100 74-106 mg/dL Normal GLU 78 Result Comment: Please note revised GLUCOSE reference range effective 2017. LAB L501.1000 7-18 mg/dL High BUN 24 LAB L501.1100 0.55-1.02 mg/dL Normal CREAT,SERUM 0.91 Result Comment: The validity of the calculated GFR AND GFRAA in patients over 70 years has not been determined. Clinical correlation is essential. LAB L501.1110 >60 mL/min Normal EST GFR 64 Result Comment: Non- GFR Calc LAB L501.1115 >60 mL/min Normal EST GFR - AA 78 Result Comment: GFR Calc LAB L501.1300 10-20 RATIO High BUN/CRE 26.3 LAB L501.1500 6.4-8.2 g/dL T Normal PROT 7.2 LAB L501.1800 3.2-5.0 g/dL Normal ALB 3.7 LAB L501.1950 2.2-4.2 g/dL Normal GLOB 3.5 LAB L501.2000 0.9-2.4 RATIO Normal A/G 1.1 LAB L501.2200 8.5-10.1 mg/dL CA Normal 9.3 LAB L501.4100 15-37 U/L Normal AST 18 LAB L501.4305 45-117 U/L High ALK P 127 LAB L501.4405 13-56 U/L Normal ALT 18 LAB L501.4600 0.20-1.00 mg/dL T Normal BILI 0.80 LAB L501.5300 136-145 mmol/L NA Normal 144 LAB L501.5600 3.5-5.1 mmol/L K Normal 4.1 LAB L501.5900 98-107 mmol/L High CL 108 LAB L501.6100 21.0-32.0 mmol/L Normal CO2 27.0 LAB L501.6200 5-15 Normal GAP 9 Performed By: #### L100.0100, L503.0105, L506.1000, L500.4050, L500.4100, L501.9520 #### [facility] [address] [place], [address] LIPID PROFILE Collected: 09/23/2017 Status: F Source: SARAH 9:37 AM [facility] REPOSITORY Order Comment: Order Date: 09/22/17 Order Info: [id number] - CMP Order Info: [id number] - LIPID Order Info: 3016-3 - TSH TYPE CODE TESTS RESULT OUT OF RANGE REFERENCE UNITS LAB L501.4900 200 mg/dL Normal CHOL 177 Result Comment: <200 mg/dL Desirable 200-240 mg/dL Borderline >240 mg/dL High Risk LAB L501.5000 mg/dL Normal TRIG 77 Result Comment: The drugs N-Acetylcysteine and Metamizole may falsely depress this assay. Serum Triglycerides Reference Interval Normal <150 mg/dL Borderline high 150 - 199 mg/dL High 200 - 499 mg/dL Very High > or = 500 mg/dL LAB L501.6400 mg/dL Normal HDL 59 Result Comment: The drugs N-Acetylcysteine and Metamizole may falsely depress this assay. Reference Range HDL <40 mg/dL Low HDL Cholesterol HDL >or= 60 mg/dL High HDL Cholesterol LAB L501.6500 0-130 mg/dL Normal LDL 103 LAB L501.6600 5-40 mg/dL Normal VLDL 15 Performed By: #### L100.0100, L503.0105, L506.1000, L500.4050, L500.4100, L501.9520 #### [facility] [address] [place], [address] THYROID STIM HORMONE Collected: 09/23/2017 Status: F Source: SARAH (TSH) 9:37 AM [facility] REPOSITORY Order Comment: Order Date: 09/22/17 Order Info: [id number] - CMP Order Info: [id number] - LIPID Order Info: 3016-3 - TSH TYPE CODE TESTS RESULT OUT OF RANGE REFERENCE UNITS LAB L501.9520 0.358-3.74 uIU/mL Normal TSH 2.19 Performed By: #### L100.0100, L503.0105, L506.1000, L500.4050, L500.4100, L501.9520 #### [facility] [address] [place], [address] PULMONARY VISIT REPORT Observed: 07/20/2017 Status: F Source: SARAH 8:56 AM [facility] REPOSITORY [facility] [address] [place], [place] [address] OFFICE VISIT Date of Service: 07/20/17 MR#: [id number] Acct: [id number] Name: CHERIE JIMENEZ Rep #: [id number] : 1945 Provider: Hossein Espino D.O. Age/Sex: 71/F [place] [facility] [place] Status: Signed Assessment AND Plan 1. COPD (chronic obstructive pulmonary disease) with acute bronchitis J44.0; J20.9 Plan The patient has evidence of a moderate obstructive ventilatory impairment noted on her last PFTs. She is currently on a stable inhaler regimen including Breo and as needed albuterol. This will be continued without change. Refills for her albuterol have been provided. The patient is due to have repeat pulmonary function testing completed prior to her follow-up office visit with me. Orders Orders: 2. Tobacco dependence in remission F17.201 Plan Ongoing tobacco cessation strongly encouraged. 3. Pulmonary nodule R91.[address] chest completed through the [facility] in December 2016 revealed multiple bilateral pulmonary nodules. The largest in the right upper lobe measured 5.4 x 4.7 mm. The left upper lobe lung nodule measures 2.8 x 1.8 mm at that time. Follow-up low-dose CT scan completed here revealed enlargement of the aforementioned nodules. However, they remain subcentimeter in size. Given that the patient's current size of her pulmonary nodules is below the sensitivity of a PET scan, I recommended that she undergo a repeat CT chest in 3 months. Low Risk: (minimal or absent smoking): < 4 mm: No follow up needed >4-6 mm: CT at 12 months, if no change then no further follow up needed >6-8 mm: Initial CT at 6-12 months, then 18-24 months if no change >8 mm: CT at 3, 9, and 24 months, consider dynamic contrast CT, PET, or bx High Risk: < 4 mm: CT at 12 months, if no change then no follow up needed >4-6 mm: initial CT at 6-12 months, then 18-24 months if no change >6-8 mm: CT at 3-6 months, then at 9-12 months, then at 24 months if no change >8 mm: CT at 3, 9, and 24 months, consider dynamic contrast CT, PET, or bx Orders Orders: Plan Detail Other Medications New: albuterol sulfate HFA 90 mcg/actuation adm2 puffs Inhalation Q6H PRN shortness of vinh inister with spacer th Discontinued: albuterol sulfate HFA 90 mcg/actuation Discontinued Reason: Order Chang6.7 GM IH Q4H ed Follow Up 3 Months (DMB) HPI HPI Comments Details: The patient is a 71-year-old female who presents to the clinic today for a routine scheduled follow-up office visit due to underlying COPD. If you recall, the patient initially transferred her care to me from her previous provider and [facility]. The patient presented with an established diagnosis of COPD and has already completed pulmonary rehabilitation. She is being actively monitored in the low-dose screening protocol. The patient's most recent low-dose CT scan of her chest completed in December 2016 through [facility] revealed bilateral subcentimeter pulmonary nodules in severe upper lobe predominant centrilobular emphysema. Pulmonary function testing completed in November 2016 revealed the presence of a moderate obstructive ventilatory defect with a significant response to aerosolized bronchodilators. Lung volumes were within normal limits. There was a severe reduction in diffusing capacity. The patient has been maintained on Breo and as needed Ventolin. A repeat low-dose CT chest completed in June 2017 revealed evidence of a 6 x 8.5 mm nodular density in the right upper lobe along with a 4.6 x 1 mm nodule in the left upper lobe. Again noted was diffuse bilateral emphysematous changes. The patient does have a previous smoking history of 1 pack per day 50 years, having quit completely in May 2015. Today, the patient reports overall stability in her breathing quality. She was reportedly treated for influenza with Tamiflu in May. She currently endorses the presence of both nasal congestion and postnasal drip. She remains compliant with the use of Breo and as needed albuterol. However, she is currently only utilizing her Ventolin inhaler as pretreatment prior to exercise. She is in need of a refill for her Ventolin rescue inhaler. She denies fevers, chills or night sweats. Her weight has been stable. She denies chest pain, dizziness or lightheadedness. Intake Vital Signs07/20/17 Height 5 ft 4 in 07/20/17 Weight: 146 lb Intake Visit Reasons: 4 M FU Accompanied by: Self Allergies metaxalone [From Skelaxin] Allergy (Severe, Verified 07/20/17 07:26) palpitations, tachycardia and itching amoxicillin trihydrate [From Augmentin] Allergy (Verified 07/20/17 07:26) Unknown bacitracin [From Polysporin] Allergy (Verified 07/20/17 07:26) Unknown polymyxin B sulfate [From Polysporin] Allergy (Verified 07/20/17 07:26) Unknown potassium clavulanate [From Augmentin] Allergy (Verified 07/20/17 07:26) Unknown propoxyphene napsylate [From Darvocet-N 100] Adverse Reaction (Verified 07/20/17 07:26) Nausea/Vom/Diarrhea BANDAID Allergy (Uncoded 07/20/17 07:26) Unknown Medications Atorvastatin Calcium [Lipitor] 10 mg PO DAILY 08/08/14 [History Confirmed 07/20/17] Biotin [Srinath Biotin] 5,000 mcg PO DAILY 08/08/14 [History Confirmed 07/20/17] Cyanocobalamin (Vitamin B-12) [Vitamin B-12] 1,000 mcg IM QMONTH 08/08/14 [History Confirmed 07/20/17] Estrogens, Conjugated [Premarin] 1 applicatio TOPICAL QMONTH 08/08/14 [History Confirmed 07/20/17] Folic Acid [Folic Acid] 1 mg PO DAILY 08/08/14 [History Confirmed 07/20/17] Levothyroxine [Synthroid] 50 mcg PO DAILY 08/08/14 [History Confirmed 07/20/17] Polyethylene Glycol 3350 [Miralax] 17 g PO DAILY 08/08/14 [History Confirmed 07/20/17] Famciclovir [Famvir] 500 mg PO TID #21 tab 03/16/16 [Rx Confirmed 07/20/17] Voltaren 0 mg PO Q8H 03/16/16 [History Confirmed 07/20/17] nystatin 100,000 unit/mL oral suspension 5 ml PO TID #250 ml 04/22/17 [Rx Confirmed 07/20/17] fluticasone 100 mcg-vilanterol 25 mcg/dose powder for inhalation 1 ea INHALATION DAILY #3 device 06/08/17 [Rx Confirmed 07/20/17] albuterol sulfate HFA 90 mcg/actuation aerosol inhaler 2 puff INHALATION Q6H PRN #1 device 07/20/17 [Rx Confirmed 07/20/17] PFS Medical History rib removal (Resolved) mohs procedure (Resolved) Hearing loss (Chronic) Itching (Acute) Fatigue (Chronic) Hyperlipidemia (Chronic) Pernicious anemia (Chronic) Kidney stone (Acute) Hypothyroidism (Chronic) IBS (irritable bowel syndrome) (Chronic) Migraines (Chronic) Fibromyalgia (Chronic) Bruises easily (Chronic) Squamous cell carcinoma (Chronic) Basal cell carcinoma (BCC) (Chronic) Hemangioma (Chronic) Lentigo (Chronic) Keratosis (Chronic) Other specified disorder of gallbladder (Chronic) Atypical chest pain (Acute) Dyspnea on exertion (Chronic) GERD (gastroesophageal reflux disease) (Chronic) COPD (chronic obstructive pulmonary disease) (Chronic) Tobacco dependence in remission (Chronic) Pulmonary nodule (Chronic) Cough (Acute) PND (post-nasal drip) (Chronic) Acute bronchitis (Acute) Hoarseness (Acute) Oral thrush (Acute) Acute pain of both ears (Acute) Surgical History Hx laparoscopic cholecystectomy (Resolved) H/O foot surgery (Resolved) H/O lithotripsy (Resolved) History of appendectomy (Resolved) History of hysterectomy (Resolved) H/O cataract removal with insertion of prosthetic lens (Resolved) History of vitrectomy (Resolved) Family History Brother Cancer Father Myocardial infarction Social History Smoking Status: Former smoker second hand exposure: Yes alcohol intake: never substance use type: does not use Review of Systems Const CONSTITUTIONAL: Negative anorexia, body ache, chills, daytime sleepiness, fever(s), night sweats, oral thrush, stops breathing during sleep, weight loss, sleeping in chair, fatigue, weight loss, weight gain, frequent colds, seasonal allergies, other, headache(s) or orthopnea EETM Ear Nose Throat Mouth: Positive hearing normal; negative hard of hearing, hoarseness, dry mouth in morning, change in vision, itchy eyes, eye pain, swallowing Difficulty, ear pain, nose bleed, headache(s), mouth pain, nasal congestion, nasal discharge, post nasal drip, sinus pain, sinus pressure, sore throat or other Cardio Cardiovascular: Negative chest pain, chest pain at rest, chest pain with activity, irregular heart rhythm, edema, shortness of breath when lying down, palpitations, murmur or other Resp Respiratory: Positive as per HPI and shortness of breath shortness of breath: Positive with activity; negative pain with cough, wheezing, chest congestion, cough, chest tightness, pain on inspiration, inhalers, increase use of rescue inhalers, snoring, apnea or other Gastro Gastrointestional: Negative bloody stools, change in appetite, difficulty swallowing, reflux, hematemesis, melena stool, loose stool, constipation or other Genitourinary: Negative blood in urine, nocturia, pain with urination or other Musc Musculoskeletal: Negative body pain, back pain, neck pain or other Skin/Breast Skin/Breast: Negative dry skin, itching, rash, unusual bruising, breast lump or other Neuro Neurological: Negative restless legs, confusion, weakness or other Psych Psychocological: Negative abnormal sleep pattern, anxiety, thoughts of hurting self/others, hopelessness or other Lymph Lymphatic: Negative easy bleeding, easy bruising, swollen lymph nodes or other Exam Const Constitutional: Positive conversant, cooperative, in no acute respiratory distress, well developed, well nourished and good hygiene Head Head: Positive normocephalic and atraumatic; negative cyanosis of lips/distal nose Eyes Eye: Positive clear conjunctiva; negative nystagmus or scleral abnormality Ears Ear: Positive hearing normal and external ears normal; negative hard of hearing Nose Nose: Positive external nose normal; negative epistaxis Mouth Mouth: Positive oral mucosae normal and posterior oropharynx is adequate; negative no lesions or post nasal drip Mallampati Score: II: Mallampati Score Neck Neck: Positive normal visual inspection and trachea midline; negative lymphadenopathy Chest Wall Chest: Positive symmetric chest movement Normal AP diameter. Resp lung sounds: Positive diminished diminished: Positive global; negative wheezes, rhonchi or rales Cardio Cardiac: Positive regular rate, regular rhythm, S1 normal and S2 normal; negative rub, gallop or murmur GI GI: Positive normal bowel sounds Soft without distention Genitourinary: Positive deferred Musc Musculoskeletal: Positive steady gait Skin Pulmonary Skin Exam: Positive intact; negative lesion, ulcers, dermal atrophy or rash Pulses Pulse: Yes Pedal pulses present: Extremities Extremities: No clubbing, No cyanosis, No edema Neuro Neurologic: Yes conversant, Yes no focal neuro deficits, Yes cooperative Lymph Lymphatic: No lymphadenopathy Psych Appearance: Positive grossly normal Mental Status: Positive mental status grossly normal Mood: Positive congruent mood Affect: Positive normal affect Coding Level of Care Code Off vis,est,level 3 Diagnoses COPD (chronic obstructive pulmonary disease) with acute bronchitis J44.0; J20.9 Tobacco dependence in remission F17.201 Pulmonary nodule R91.1 07/20/17 0856 <Electronically signed by Hossein Espino DO> Date Hossein Espino DO Cosigner Signature: Date (if applicable) CC: Jose Bee MD CNCO Observed: 07/18/2017 Status: COMPLETED Source: EXETER 12:00 AM [facility] REPOSITORY Letter Text July 18, 2017 RE: Cherie Jimenez : 1945 Clinic Number: [id number] Dear Patient, Thank you for choosing the [facility] lung cancer screening program. Your results from the lung cancer screening CT suggest a very low risk of having lung cancer (less than 1%). You do not need any additional testing at this time. In order for lung cancer screening to be effective it is important to have a yearly lung cancer screening CT. Your next visit and screening CT should be scheduled for July 2018. An order has been placed in your chart, and you will be contacted by one of our schedulers to schedule this appointment. Thank you again for putting your trust in [facility]. Please do not hesitate to call with any questions [phone]. Sincerely, The Lung Cancer Screening Program of the [facility] [place] LOW DOSE CT LUNG Observed: 07/08/2017 Status: F Source: [place] SCREENING 7:55 AM [facility] REPOSITORY [facility] Imaging Services [address] [place] [address] Lung Screening MR#: [id number] Acct: [id number] Name: CHERIE JIMENEZ Rep #: [id number] : 1945 F 71 From: Audie Ramires MD PCP: Jose Bee MD Status: [facility] Study: Low Dose CT Lung Screening Date of Exam: 07/08/17 Exam# [id number] Ordering Dr: Hossein Espino DO STUDY: LOW DOSE CT LUNG CANCER SCREENING REASON FOR EXAM: Female, 71 years old. History of 50 pack- year smoker. RADIATION DOSAGE (If Supplied By Facility): CTDIvol = ( 1.70 ) mGy, DLP = ( 56.58 ) mGycm TECHNIQUE: No contrast was administered. Low dose technique was utilized (average mAS-38 and kVp 120). 1.25 mm axial source images with a slice interval of 1.25- mm were reconstructed in lung windows. 2.5 mm axial source images with a slice interval of 2.5-mm were reconstructed in lung windows. 5.0 mm axial source images with a slice interval of 5.0-mm were reconstructed in soft tissue windows. Nodule measured using lung windows on PACS and/or independent workstation with automated measurement of minimum and maximum diameter. Nodule measurement reported as average diameter rounded to the nearest whole number. Growth is defined as an increase ins size of greater than 1.5 mm. COMPARISON: None. NODULES: There is a 6.1 mm x 8.5 mm slightly irregular nodular density in the right upper lobe as seen on axial image #29. A faint nodular density measuring 4.6 mm x 1 mm is also seen in the left upper lobe on axial image #28. Emphysema: Diffuse emphysematous changes worse in the upper lobes with bullous formation. Findings suggestive of scarring in the lung apices worse in the right lung apex. Endobronchial lesion: Aorta: Atherosclerotic calcification of the aortic arch and descending thoracic aorta. Coronary arteries: Coronary artery calcification. Mediastinal nodes: Small benign-appearing mediastinal lymph nodes. Other chest and abdominal findings: Degenerative changes of the thoracic spine. CT/Low Dose CT Lung Screening IMPRESSION: Suspicious nodule in the right upper lobe as described. Correlation with a PET scan is recommended. IMPORTANT NOTES FOR USE: ACR Lung-RADS Version 1.0 Assessment Categories Release Date: September 10, 2013 Category: Coded 0-4 bases on nodule(s) with highest degree of suspicion. Negative screen is defined as categories 1 and 2; a positive screen is defined as categories 3 and 4. Category 3 and 4A nodules that are unchanged on interval CT should be coded as category 2, and individuals returned to screening in 12 months. Category 4X: Category 3 or 4 nodules with additional imaging findings that increase the suspicion of lung cancer, such as spiculation, GGN that doubles in size in 1 year, enlarged lymph notes, etc. Category Modifiers: S (significant finding unrelated to lung cancer) and C (prior history of treated lung cancer) may be added to the 0-4 Lung-RADS Electronically Signed: Audie Ramires MD at 15:54 EST Tel [phone], Service support , CC: Hossein Espino D.O.; Jose Bee MD Restaurant District Manager: Signed ALLERGIES ALLERGIES DATE TYPE / CODE NAME / CODE REACTION SEVERITY SOURCE Drug propoxyphene Nausea/Vom/Diar Unknown [place] 8 Allergy/716552937( napsylate/Z657338 kash [facility] SN[facility]) 576(RXNORM) Hospital Repository Drug amoxicillin Unknown Unknown [place] 8 Allergy/000604257( trihydrate/U01674 [facility]) 2707(RXNORM) Hospital Repository Drug polymyxin B Unknown Unknown [place] 8 Allergy/914773356( sulfate/M90842275 Community SNOM[facility]) 3(RXNORM) Hospital Repository Drug potassium Unknown Unknown [place] 8 Allergy/755095023( clavulanate/F0000 [facility] SN[facility]) 66752(RXNORM) Hospital Repository Drug metaxalone/P39932 palpitations, SV [place] 8 Allergy/510345266( 1673(RXNORM) tachycardia and Community SNOM[facility]) itching Hospital Repository Drug bacitracin/B67183 Unknown Unknown [place] 8 Allergy/647805140( 2798(RXNORM) [facility] SN[facility]) Hospital Repository Miscellaneous BANDAID Unknown Unknown [place] 8 Allergy/419970242( Community SNOM[facility] CT) Hospital Repository DRUG/357615338(SNO HYDROCODONE-ACETA GI UPSET [place] [address]) MINOPHEN [facility] [place] Repository DRUG METAXALONE ITCHING [place] 6 INGREDI/699515383( Clinic Main SNOMED CT) [place] Repository DRUG/503137161(SNO BACITRACIN-POLYMY SWELLING [place] [address]) FRANCISCO B Clinic Main [place] Repository DRUG/511421447(SNO AMOXICILLIN-POT Vomiting [place] [address]) CLAVULANATE Clinic Main [place] Repository Chemical/589361821 ADHESIVE TAPE [place] 4 (SNOMED CT) (ROSINS) [facility] [place] Repository DRUG PROPOXYPHENE Vomiting [place] 4 INGREDI/982740769( Clinic Main SNOMED CT) [place] Repository ENCOUNTERS ENCOUNTERS ADMIT/DISCHARGE ACCOUNT ADMITTING ENCOUNTER LOCATION SOURCE NUMBER CLASS 05/02/2018 [id number] Ambulatory [facility] Hospital[facility] Hospital ing:[place] Repository 04/25/2018/04/25/20 [id number] Ambulatory BMSBuilding:B [place] 18 [facility] Repository 04/17/2018 [id number] Ambulatory [facility] HospitalBuild Hospital ing:LAB Repository 04/13/2018/04/14/20 [id number] Ambulatory [place] Hospital[facility] Hospital ing:[place] Repository 03/23/2018/03/23/20 [id number] Ambulatory BMSBuilding:B [place] 18 [facility] Repository 03/14/2018/03/15/20 [id number] Ambulatory [address] HospitalBuild Hospital ing:[place] Repository 02/20/2018/02/21/20 [id number] Ambulatory BMSBuilding:B [place] 18 [facility] Repository 02/09/2018/02/13/20 [id number] Ambulatory [address] HospitalBuild Hospital ing:[place] Repository 01/18/2018/01/19/20 [id number] Ambulatory BMSBuilding:B [place] 18 [facility] Repository 01/12/2018/01/14/20 [id number] Ambulatory [address] HospitalBuild Hospital ing:[place] Repository 12/13/2017/12/14/19 [id number] Ambulatory [place] [facility] Hospital ing:[place] Repository 11/10/2017/11/11/19 [id number] Ambulatory BMSBuilding:B [place] 18 [facility] Repository 11/10/2017/11/13/19 [id number] Ambulatory [place] HospitalBuild Hospital ing:[place] Repository 11/01/2017 [id number] Ambulatory [facility] HospitalBuild Hospital ing:PSN Repository 11/01/2017 [id number] Ambulatory BMSBuilding:W [place] [facility] Hospital Repository 10/06/2017/10/07/19 [id number] Ambulatory [address] Repository 10/06/2017/10/14/19 [id number] Ambulatory [place] HospitalBuild Hospital ing:[place] Repository 09/23/2017 [id number] Ambulatory [place] Sarah [facility] Hospital ing:MTLAB Repository 09/08/2017/09/13/19 [id number] Ambulatory [place] 18 [facility] Hospital ing:[place] Repository 08/11/2017/08/14/19 [id number] Ambulatory [place] 18 [facility] Hospital ing:[place] Repository 07/20/2017/07/21/19 [id number] Ambulatory BMSBuilding:B [place] 18 [facility] Repository 07/12/2017/07/13/19 [id number] Ambulatory [place] 18 [facility] Hospital ing:[place] Repository 07/08/2017 [id number] Ambulatory [place] [facility] Hospital ing:CT Repository 06/14/2017/06/15/19 [id number] Ambulatory [place] 18 [facility] Hospital ing:[place] Repository 05/26/2017 [id number] Ambulatory [place] [facility] Hospital ing:[place] Repository 05/12/2017/05/15/20 [id number] Ambulatory [place] 17 [facility] Hospital ing:[place] Repository PAYERS PAYERS ENCOUNTER GUARANTOR PAYER SUBSCRIBER SOURCE 05/02/2018 CHERIE [id number] Primary NOT GIVENUNK [place] Insurance:SELF PAY [place] [address]Tel: (330) Number: Effective Repository [phone] () Date:2018-04-15 04/25/2018 CHERIE JIMENEZ3322 Primary CHERIE JIMENEZDOB: [place] Insurance:[id number] [address]Tel: (330) Number: Repository [phone] () [id number] Date:2018-04-17 04/25/2018 Secondary NOT GIVENUNK [place] Insurance:SELF PAY [facility] Number: Effective Repository Date:2018-04-17 04/17/2018 CHERIE JIMENEZ3322 Primary CHERIE JIMENEZDOB: [place] Insurance:[place]IC[place] [id number] PART [facility] [address]Fqx: (330) Number: Repository [phone] () [id number] Date:2018-04-17 04/17/2018 Secondary NOT GIVENUNK [place] Insurance:SELF PAY [facility] Number: Effective Repository Date:2018-04-17 04/13/2018 CHERIE [id number] Primary NOT GIVENUNK [place] Insurance:SELF PAY [facility] [address]Kbq: (330) Number: Effective Repository [phone] () Date:2018-03-16 03/23/2018 CHERIE JIMENEZ3322 Primary CHERIE JIMENEZDOB: [place] Insurance:MEDICARE [id number] [address]Pvz: (330) Number: Repository [phone] () [id number] Date:2018-01-18 03/23/2018 Secondary NOT GIVENUNK [place] Insurance:SELF PAY [facility] Number: Effective Repository Date:2018-02-20 03/14/2018 CHERIE [id number] Primary NOT GIVENUNK [place] Insurance:SELF PAY [facility] [address]Key: (330) Number: Effective Repository [phone] () Date:2018-02-13 02/20/2018 CHERIE JIMENEZ3322 Primary CHERIE JIMENEZDOB: [place] Insurance:MEDICARE [id number] [address]Zfd: (330) Number: Repository [phone] () [id number] Date:2018-02-06 02/20/2018 Secondary CHERIE JIMENEZDOB: Sarah Insurance:CIGNAPolicy [id number] Community Number: Hospital [id number] Repository Date:5671-57-38PI [address]CN[place], [place] [address]PL: 02/20/2018 Tertiary NOT GIVENUNK [place] Insurance:SELF PAY [facility] Number: Effective Repository Date:2018-02-13 02/09/2018 NINA [id number] Primary NOT GIVENUNK [place] Insurance:SELF PAY [facility] [address]Uky: (330) Number: Effective Repository [phone] () Date:2018-01-14 01/18/2018 CHERIE [id number] Primary NINA JOESTDOB: [place] Insurance:[place]ICARE [id number] PART A [facility] [address]Pwn: (330) Number: Repository [phone] () [id number] Date:2017-11-10 01/18/2018 Secondary NINA HURSTDOB: [place] Insurance:CIGNAPolicy [id number] Community Number: [facility] [id number] Repository Date:2291-82-66VZ [address]VRVLMIC[address]XX, [place] [address]ES: 01/18/2018 Tertiary NOT GIVENUNK [place] Insurance:SELF PAY [facility] Number: Effective Repository Date:2018-01-11 01/12/2018 NINA [id number] Primary NOT GIVENUNK [place] Insurance:SELF PAY [facility] [address]Zbe: (330) Number: Effective Repository [phone] () Date:2017-12-14 12/13/2017 NINA [id number] Primary NINA JOESTDOB: [place] Insurance:MEDICARE [id number] PART A [facility] [address]Ebh: (330) Number: Repository [phone] () [id number] Date:2017-05-02 12/13/2017 Secondary NINA HURSTDOB: [place] Insurance:CIGNAPolicy [id number] Community Number: [facility] [id number] Repository Date:4707-46-95EJ [address]HJDJTDLQSWH, [place] [address]AT: 12/13/2017 Tertiary NOT GIVENUNK [place] Insurance:SELF PAY Community [facility] Number: Effective Repository Date:2017-11-13 11/10/2017 NINA [id number] Primary NINA HURSTDOB: [place] Insurance:MEDICARE [id number] Medical [facility] [address]Rlj: (330) Number: Repository [phone] () [id number] Date:2017-07-20 11/10/2017 Secondary NINA HURSTDOB: [place] Insurance:CIGNAPolicy [id number] Community Number: [facility] [id number] Repository Date:6406-37-18FB [address]SYJSTWPWZYT, [place] [address]RD: 11/10/2017 Tertiary NOT GIVENUNK [place] Insurance:SELF PAY [facility] Number: Effective Repository Date:2017-11-07 11/10/2017 NINA [id number] Primary NINA HURSTDOB: [place] Insurance:MEDICARE [id number] [place] [id number]: (330) Number: Repository [phone] () [id number] Date:2017-05-02 11/10/2017 Secondary NINA HURSTDOB: [place] Insurance:CIGNAPolicy [id number] Community Number: [facility] [id number] Repository Date:6016-31-55ZR [address]KGYPISTMDVL, [place] [address]UF: 11/10/2017 Tertiary NOT GIVENUNK [place] Insurance:SELF PAY [facility] Number: Effective Repository Date:2017-10-14 11/01/2017 NINA [id number] Primary NINA HURSTDOB: [place] Insurance:MEDICARE [id number] Medical [facility] [address]Lsy: (330) Number: Repository [phone] () [id number] Date:2017-07-20 11/01/2017 Secondary NINA HURSTDOB: [place] Insurance:CIGNAPolicy [id number] Community Number: [facility] [id number] Repository Date:8026-59-41OW [address]QBMJHDLDMVW, [place] [address]FC: 11/01/2017 Tertiary NOT GIVENUNK [place] Insurance:SELF PAY [facility] Number: Effective Repository Date:2017-07-20 11/01/2017 CHERIE [id number] Primary CHERIE JIMENEZDOB: [place] Insurance:MEDICARE [id number] A [place] [address]Tel: (330) Number: Repository [phone] () [id number] Date:2017-07-20 11/01/2017 Secondary CHERIE JIMENEZDOB: [place] Insurance:CIGNAPolicy [id number] Community Number: [facility] [id number] Repository Date:9027-71-58ZQ [address]BNGKKHXWOYZ, [place] [address]VL: 11/01/2017 Tertiary NOT GIVENUNK [place] Insurance:SELF PAY [facility] Number: Effective Repository Date:2017-11-01 10/06/2017 CHERIE [id number] Primary NOT GIVENUNK [place] Insurance:SELF PAY [place] [address]Tel: (330) Number: Effective Repository [phone] () Date:2017 09/23/2017 CHERIE JIMENEZ3322 Primary CHERIE JIMENEZDOB: [place] Insurance:MEDICARE [id number] [place] [address]Tel: (330) Number: Repository [phone] () [id number] Date:2017-09-23 09/23/2017 Secondary CHERIE DIAZSTDOB: [place] Insurance:CIGNAPolicy [id number] Community Number: [facility] [id number] Repository Date:2012-95-13RZ [address]KVOIULHGKZN, [place] [address]BY: 09/23/2017 Tertiary NOT GIVENUNK [place] Insurance:SELF PAY [facility] Number: Effective Repository Date:2017-09-23 09/08/2017 CHERIE [id number] Primary NOT GIVENUNK [place] Insurance:SELF PAY [place] [address]Tel: (330) Number: Effective Repository [phone] () Date:2017-08-14 08/11/2017 CHERIE [id number] Primary NOT GIVENUNK [place] Insurance:SELF PAY [place] [address]Tel: (330) Number: Effective Repository [phone] () Date:2017-07-14 07/20/2017 CHERIE [id number] Primary CHERIE DIAZSTDOB: [place] Insurance:MEDICARE [id number] [facility] A [place] [address]Tel: (330) Number: Repository [phone] () [id number] Date:2017-04-25 07/20/2017 Secondary CHERIE DIAZSTDOB: [place] Insurance:CIGNAPolicy [id number] Community Number: [facility] [id number] Repository Date:6909-83-78OS [address], [place] [address]RD: 07/20/2017 Tertiary NOT GIVENUNK [place] Insurance:SELF PAY [facility] Number: Effective Repository Date:2017-04-25 07/12/2017 CHERIE [id number] Primary CHERIE JIMENEZDOB: [place] Insurance:MEDICARE [id number] [place], [place] [address]Tel: [phone]) Number: Repository [phone] () [id number] Date:2017-05-02 07/12/2017 Secondary CHERIE DIAZSTDOB: Sarah Insurance:CIGNAPolicy [id number] Community Number: [facility] [id number] Repository Date:4971-85-56OF [address], [place] [address]ZU: 07/12/2017 Tertiary NOT GIVENUNK [place] Insurance:SELF PAY [facility] Number: Effective Repository Date:2017-06-16 07/08/2017 NINA [id number] Primary NINA HURSTDOB: [place] Insurance:MEDICARE [id number] [place] [facility] [address]Cys: [phone]) Number: Repository [phone] () [id number] Date:2010-08-14 07/08/2017 Secondary NINA HURSTDOB: [place] Insurance:CIGNAPolicy [id number] Community Number: Hospital [id number] Repository Date:1608-17-17NL [address], [place] [address]SE: 07/08/2017 Tertiary NOT GIVENUNK [place] Insurance:SELF PAY [facility] Effective Repository Date:2017-03-11 06/14/2017 CHERIE [id number] Primary NINA HURSTDOB: [place] Insurance:MEDICARE [id number] [facility] [place] [id number]: [phone]) Number: Repository [phone] () [id number] Date:2017-05-02 06/14/2017 Secondary NINA HURSTDOB: [place] Insurance:CIGNAPolicy [id number] Community Number: [facility] [id number] Repository Date:3553-36-21EI [address]VOZ[place], [place] [address]HB: 06/14/2017 Tertiary NOT GIVENUNK [place] Insurance:SELF PAY [facility] Number: Effective Repository Date:2017-05-02 05/26/2017 NINA [id number] Primary NINA HURSTDOB: [place] Insurance:MEDICARE [id number] [facility] [address]Tsi: [phone]) Number: Repository [phone] () [id number] Date:2010-08-14 05/26/2017 Secondary NINA HURSTDOB: Sarah Insurance:CIGNAPolicy [id number] Community Number: [facility] [id number] Repository Date:8020-52-73NH [address] [address]KG: 05/26/2017 Tertiary NOT GIVENUNK [place] Insurance:SELF PAY [facility] Number: Effective Repository Date:2017-05-16 05/12/2017 CHERIE [id number] Primary CHERIE MADSENB: [place] Insurance:MEDICARE [id number] [facility] [address]Upo: [phone]) Number: Repository [phone] () [id number] Date:2010-08-14 05/12/2017 Secondary CHERIE MADSENB: Sarah Insurance:CIGNAPolicy [id number] Community Number: [facility] [id number] Repository Date:2561-43-06JO [address]ZK[place]UVRB, [place] [address]NK: 05/12/2017 Tertiary NOT GIVENUNK [place] Insurance:SELF PAY [facility] Number: Effective Repository Date:2017-04-15
== END ==
PROVIDERS: Family Provider Family Medicine; PCP Family Medicine; Referring Provider Nurse Practitioner Acute Care; Visit Provider Nurse Practitioner Acute Care
DX: J44.0 Chronic obstructive pulmonary disease with (acute) lower respiratory infection (principal); J20.9 Acute bronchitis, unspecified
CPT/HCPCS: 87070; 87205

== ENCOUNTER 2018-05-11 06:00 | Outpatient (RCR) | payer SELFPAY ==
[2018-03-23 08:39] VITALS: BMI 25.0
== END 2018-05-15 23:59 ==
LOC: PR 06:00
PROVIDERS: Family Provider Family Medicine; PCP Family Medicine; Referring Provider Internal Medicine Critical Care Medicine; Visit Provider Internal Medicine Critical Care Medicine
DX: Z00.00 Encounter for general adult medical examination without abnormal findings (principal)

== ENCOUNTER → 2018-05-15 11:50 | Outpatient (CLI) | payer MEDICARE, OTHER, SELFPAY ==
[2018-04-25 13:43] VITALS: BMI 24.7
--- NOTE | 2018-05-15 11:56 | BI_ITS ---
MAMMOGRAPHY - BILATERAL SCREENING REASON FOR EXAM: Female, 72 years old. Routine annual screening examination. PERTINENT HISTORY: Non-contributory. TECHNIQUE: Digital bilateral breast adeline (3D mammographic acquisition) in the CC and MLO projections. 2-D mediolateral oblique (MLO) and craniocaudad (CC) views of both breasts were obtained. CAD: Full Field Digital Mammography with Computer Added Detection was performed. COMPARISON: Comparison is made with prior study dated March 19, 2017. FINDINGS: Breast Composition: There are scattered areas of fibroglandular density. There are no dominant masses or suspicious calcifications. No other significant abnormalities are identified. There has been no significant change since the prior study. BI/SCREENING MAMM (CAD), BILAT IMPRESSION: Stable bilateral screening mammogram. Yearly follow-up mammogram recommended. (A) ASSESSMENT CATEGORY: BIRADS Category 1: Negative. A letter regarding these results will be sent to the patient by the facility within 30 days. Approximately 10% of breast cancers are not detected by mammography. A normal mammogram should not delay biopsy of a clinically suspicious abnormality. [id number] Electronically Signed: Audie Ramires MD at 14:26 EST Tel [phone], Service support ,
== END ==
PROVIDERS: Family Provider Family Medicine; PCP Family Medicine; Visit Provider Family Medicine
DX: Z12.31 Encounter for screening mammogram for malignant neoplasm of breast (principal)
CPT/HCPCS: 77063; 77067

== ENCOUNTER 2018-05-18 07:11 | Outpatient (RCR) | payer SELFPAY ==
[2018-04-25 13:43] VITALS: BMI 24.7
[2018-05-17 08:12] VITALS: BMI 24.7
== END 2018-06-15 23:59 ==
LOC: PR 07:11
PROVIDERS: Family Provider Family Medicine; PCP Family Medicine; Referring Provider Internal Medicine Critical Care Medicine; Visit Provider Internal Medicine Critical Care Medicine
DX: Z00.00 Encounter for general adult medical examination without abnormal findings (principal)

== ENCOUNTER → 2018-06-28 08:31 | Outpatient (CLI) | payer MEDICARE, OTHER, SELFPAY ==
[2018-06-22 08:09] VITALS: BMI 24.7
[2018-06-28 10:36] LABS: Absolute Neutrophil Count 4.3 X10^3/uL (2.0-7.7); Basophil# 0.03 X10^3/uL; Basophil% 0.4 % (0-1); Eosinophil# 0.18 X10^3/uL; Eosinophils% 2.7 % (0-5); Hematocrit 46.2 % (37-47); Hemoglobin 14.8 g/dl (12.0-15.0); Lymphocyte % 25.1 % (19-41); Mean Corpuscular Hgb 29.3 pg (27.0-32.0); Mean Corpuscular Volume 91.5 fL (81-99); Mean Platelet Vol. 10.9 fl (6.2-12.0); Monocyte# 0.52 X10^3/uL; Monocyte% 7.7 % (0-10); Neutrophil # 4.33 X10^3/uL (2.7-7.7); Platelet Count 254 K/mm3 (150-450); RBC Distribution Width CV 13.5 % (11.6-14.6); RBC Distribution Width SD 44.5 fl (35.1-43.9); Red Blood Count 5.05 M/mm3 (4.2-5.4); White Blood Count 6.8 K/mm3 (4.4-11.0)
[2018-06-28 10:37] LABS: POSITIVE COUNT NO; POSITIVE DIFFERENTIAL NO; POSITIVE MORPHOLOGY NO
[2018-06-28 10:52] LABS: ALB/GLOB Ratio 1.2 RATIO (0.9-2.4); AST(SGOT) 14 U/L (15-37); Alanine Aminotransfer ALT/SGPT 18 U/L (13-56); Albumin, Serum 3.8 g/dL (3.2-5.0); Alkaline Phosphatase 146 U/L (45-117); Anion Gap 9 (5-15); BUN 22 mg/dL (7-18); BUN/Creat Ratio 19.6 RATIO (10-20); Calcium,Total 9.5 mg/dL (8.5-10.1); Chloride 109 mmol/L (98-107); Cholesterol 162 mg/dL (200); Creatinine, Serum 1.12 mg/dL (0.55-1.02); EST Glomerular Filtration Rate 51 mL/min (>60); Est Glom Filt Rate - Afr Amer 61 mL/min (>60); Globulin 3.2 g/dL (2.2-4.2); Glucose 94 mg/dL (74-106); High Density Lipoprotein 50 mg/dL; Potassium 3.7 mmol/L (3.5-5.1); Sodium Level 145 mmol/L (136-145); T3 Uptake 38 % (30-39); Thyroid Stim Hormone (TSH) 4.83 uIU/mL (0.358-3.74); Triglycerides 81 mg/dL; Very Low Density Lipoprotein 16 mg/dL (5-40)
== END ==
PROVIDERS: Family Provider Family Medicine; PCP Family Medicine; Referring Provider Family Medicine; Visit Provider Family Medicine
DX: L65.9 Nonscarring hair loss, unspecified (principal); R53.81 Other malaise; E78.00 Pure hypercholesterolemia, unspecified
CPT/HCPCS: 36415; 80053; 80061; 84439; 84443; 84479; 85025

== ENCOUNTER → 2018-08-16 14:30 | Outpatient (CLI) | payer MEDICARE, OTHER, SELFPAY ==
[2018-07-01 12:09] VITALS: BMI 24.7
[2018-08-16 17:12] LABS: Vitamin B12 > 2000 pg/mL (211-911); Vitamin D,25 Hydroxy 27.9 ng/mL (29.95-100.01)
[2018-08-16 17:38] LABS: Ferritin 109 ng/mL (8-252); Iron 81 ug/dL (50-170); Iron Binding Capacity,Total 294 ug/dL (250-450); PERCENT IRON SATURATION 27.6 % (15.0-55.0)
[2018-08-21 09:06] LABS: DHEA Sulfate 4.6 ug/dL (20.4-186.6); Testosterone, % Free 1.06 % (0.50-2.80); Testosterone, Free < 0.03 ng/dL (0.10-0.85); Testosterone, Total < 3 ng/dL (3-41)
[2018-08-21 11:52] LABS: Zinc, Plasma or Serum 84 ug/dL (56-134)
== END ==
PROVIDERS: Family Provider Family Medicine; PCP Family Medicine; Referring Provider Dermatology; Visit Provider Dermatology
DX: L65.0 Telogen effluvium (principal); L57.0 Actinic keratosis; L82.0 Inflamed seborrheic keratosis; L29.8 Other pruritus; K51.90 Ulcerative colitis, unspecified, without complications; M81.0 Age-related osteoporosis without current pathological fracture
CPT/HCPCS: 36415; 82306; 82607; 82627; 82652; 82728; 82746; 83540; 83550; 84402; 84403; 84630; 86038; 82626

== ENCOUNTER → 2018-08-29 11:24 | Outpatient (CLI) | payer MEDICARE, OTHER, SELFPAY ==
[2018-07-01 12:09] VITALS: BMI 24.7
[2018-08-29 13:39] LABS: Erythrocyte Sedimentation Rate 11 mm/hr (0-30)
[2018-08-29 13:52] LABS: CRP < 2.90 mg/L (0.0-3.0); Rheumatoid Factor < 10.0 IU/mL (<15)
[2018-08-30 11:42] LABS: Complement C3 127 mg/dL (82-167)
[2018-08-30 17:54] LABS: RNP Ab <0.2 AI (0.0-0.9); Smith Ab <0.2 AI (0.0-0.9)
[2018-08-31 17:06] LABS: Anti-dsDNA Ab <1 IU/mL (0-9)
== END ==
PROVIDERS: Family Provider Family Medicine; PCP Family Medicine; Referring Provider Dermatology; Visit Provider Dermatology
DX: M19.90 Unspecified osteoarthritis, unspecified site (principal); R76.0 Raised antibody titer
CPT/HCPCS: 36415; 85652; 86140; 86160; 86225; 86235; 86431

== ENCOUNTER → 2018-12-19 09:43 | Outpatient (CLI) | payer MEDICARE, OTHER, SELFPAY ==
[2018-09-20 14:42] VITALS: BMI 24.5
--- NOTE | 2018-12-19 09:56 | BD_ITS ---
STUDY: DUAL ENERGY X-RAY ABSORPTIOMETRY / DXA REASON FOR EXAM: Female, 73 years old. The patient is postmenopausal. Loss of height. TECHNIQUE: Bone Mineral Density (BMD) measurements of lumbar spine and bilateral hips were obtained. COMPARISON: Comparison is made with prior examination dated August 21, 2008. FINDINGS: Lumbar Spine (L1-L4): g/cm2 (1.040) / T-score (-1.2) / Z-score (0.6) Findings are suggestive of osteopenia with a low fracture risk. Increased thoracic kyphosis. Left Femur Total: g/cm2 (0.847) / T-score (-1.3) / Z-score (0.4) Left Femoral Neck: g/cm2 (0.953) / T-score (-0.6) / Z-score (1.2) Right Femur Total: g/cm2 (0.834) / T-score (-1.4) / Z-score (0.3) Right Femoral Neck: g/cm2 (0.913) / T-score (-0.9) / Z-score (0.9) The T-Scores on the most recent prior examination were: Lumbar Spine (L1-L4): There has been worsening of bone density since the previous examination. Left Femur Total: which represents a worsening of 18.9%. Right Femur Total: which represents a worsening of 18.3%. BD/Dexa Bone Density Study IMPRESSION: The patient is considered osteopenic as outlined below according to World Bert Organization (WHO) criteria with a low fracture risk. There has been worsening of bone density since the previous examination. Reference Information: The T-score is the number of standard deviations above or below the standard which is normal for young adults at their peak bone mineral density. The World Health Organization (WHO) interprets the T-scores as follows: Above -1 Normal bone density Between -1 and -2.5 Osteopenia Equal to / or below -2.5 Osteoporosis As a practical clinical guideline, osteopenia may be graded as follows: Mild -1 through -1.5 Moderate -1.6 through -2.0 Severe -2.1 through -2.4 The Z-score is the number of standard deviations above or below age-matched controls. A Z-score of less than -1.5 would be considered abnormal. References: 1. NIH Osteoporosis and Related Bone Diseases http://www.osteo.org 2. International Society for Clinical Densitometry http://www.iscd.org 3. National Osteoporosis Foundation http://www.nof.org Electronically Signed: Audie Ramires, at 15:34 EDT , Service support ,
== END ==
PROVIDERS: Family Provider Family Medicine; PCP Family Medicine; Referring Provider Family Medicine; Visit Provider Family Medicine
DX: M81.0 Age-related osteoporosis without current pathological fracture (principal)
CPT/HCPCS: 77080

== ENCOUNTER → 2019-03-13 10:23 | Outpatient (CLI) | payer MEDICARE, OTHER, SELFPAY ==
[2018-09-20 14:42] VITALS: BMI 24.5
[2019-03-13 12:16] LABS: Absolute Lymphocyte Count 1.43 X10^3/uL (0.83-4.51); Absolute Neutrophil Count 4.2 X10^3/uL (2.0-7.7); Basophil# 0.06 X10^3/uL; Basophil% 0.9 % (0-1); Eosinophil# 0.21 X10^3/uL; Eosinophils% 3.3 % (0-5); Hematocrit 47.6 % (37-47); Hemoglobin 15.5 g/dL (12.0-15.0); Lymphocyte # 1.43 X10^3/ul (4.0); Lymphocyte % 22.6 % (19-41); Mean Corp Hgb Conc 32.6 g/dL (32-36); Mean Corpuscular Hgb 29.5 pg (27.0-32.0); Mean Corpuscular Volume 90.7 fL (81-99); Mean Platelet Vol. 11.1 fl (6.2-12.0); Monocyte# 0.44 X10^3/uL; NRBC Flagged by Analyzer 0 % (0-5); Neutrophil # 4.17 X10^3/uL (2.7-7.7); Platelet Count 232 K/mm3 (150-450); RBC Distribution Width CV 12.8 % (11.6-14.6); RBC Distribution Width SD 42.4 fl (35.1-43.9); Red Blood Count 5.25 M/mm3 (4.2-5.4); White Blood Count 6.3 K/mm3 (4.4-11.0)
[2019-03-13 12:34] LABS: Vitamin B12 680 pg/mL (211-911); Vitamin D,25 Hydroxy 41.2 ng/mL (29.95-100.01)
[2019-03-13 13:20] LABS: ALB/GLOB Ratio 1.3 RATIO (0.9-2.4); AST(SGOT) 14 U/L (15-37); Alanine Aminotransfer ALT/SGPT 19 U/L (13-56); Albumin, Serum 3.9 g/dL (3.2-5.0); Alkaline Phosphatase 137 U/L (45-117); Anion Gap 6 (5-15); BUN 23 mg/dL (7-18); BUN/Creat Ratio 24.2 RATIO (10-20); Calcium,Total 9.5 mg/dL (8.5-10.1); Chloride 109 mmol/L (98-107); Cholesterol 169 mg/dL (200); Creatinine, Serum 0.95 mg/dL (0.55-1.02); EST Glomerular Filtration Rate 61 mL/min (>60); Est Glom Filt Rate - Afr Amer 74 mL/min (>60); Globulin 3.1 g/dL (2.2-4.2); Glucose 95 mg/dL (74-106); High Density Lipoprotein 56 mg/dL; Potassium 4.2 mmol/L (3.5-5.1); Sodium Level 141 mmol/L (136-145); T4 Free Direct 1.37 ng/dL (0.76-1.46); Thyroid Stim Hormone (TSH) 3.05 uIU/mL (0.358-3.74); Triglycerides 58 mg/dL; Very Low Density Lipoprotein 12 mg/dL (5-40)
[2019-03-17 13:44] LABS: Vitamin B1, Thiamine 128.2 nmol/L (66.5-200.0)
== END ==
PROVIDERS: Family Provider Family Medicine; PCP Family Medicine; Referring Provider Family Medicine; Visit Provider Family Medicine
DX: D51.0 Vitamin B12 deficiency anemia due to intrinsic factor deficiency (principal); N18.9 Chronic kidney disease, unspecified; E53.8 Deficiency of other specified B group vitamins; G62.9 Polyneuropathy, unspecified; E78.00 Pure hypercholesterolemia, unspecified; E03.9 Hypothyroidism, unspecified; E55.9 Vitamin D deficiency, unspecified
CPT/HCPCS: 36415; 80053; 80061; 82306; 82607; 82746; 84425; 84439; 84443; 85025

== ENCOUNTER → 2019-03-22 13:20 | Outpatient (CLI) | payer MEDICARE, OTHER, SELFPAY ==
[2018-09-20 14:42] VITALS: BMI 24.5
--- NOTE | 2019-03-22 13:21 | CT_ITS ---
STUDY: CT CHEST WITHOUT CONTRAST REASON FOR EXAM: Female, 73 years old. History of skin cancer on the cheek. History of smoking and prior history of first rib removal. RADIATION DOSAGE (If Supplied By Facility): CTDIvol = ( 7.45 ) mGy, DLP = ( 271.83 ) mGycm TECHNIQUE: Transaxial imaging was performed without the administration of intravenous contrast material. Multiplanar coronal and sagittal images were reformatted. Individualized dose optimization techniques were used for this CT. COMPARISON: 11/01/2017. FINDINGS: There are emphysematous changes of the lungs with emphysematous blebs. Redemonstrated is right apical lung nodule seen on image 18, axial plane measuring approximately 0.6 cm, stable in size in the interval. The second nodule seen within the right mid upper lung field, axial image 23 measures approximately 0.6 x 0.4 cm, new in the interval. There is a nodule within the left lower lobe/paraspinal region measuring approximately 4-5 mm, decreased in size in the interval. There is no demonstrated pleural abnormality. Normal heart and pericardium. There are calcifications of the coronary arteries. Normal mediastinum. Normal hilar regions. Normal unenhanced pulmonary arteries. There is atherosclerotic calcification of the aortic arch with tortuosity and elongation of the aortic arch and descending thoracic aorta. There are diffuse osteopenic changes with multilevel degenerative disease. Upper abdomen: Punctate calcifications within the spleen suggestive of previous granulomatous infection. The visualized upper portion of the liver, bilateral kidneys and adrenal glands are normal. There is marked thickening of gallbladder wall, exact etiology indeterminate. CT/Chest without Contrast IMPRESSION: Diffuse emphysematous changes as described above. There is one nodule identified within the right mid upper lung field image 23 series 4, not seen on previous examination. Therefore, follow-up performed in 6-12 months depending on risk factors recommended to evaluate stability. Thickening of gallbladder wall. A right upper quadrant symptoms are present, recommend dedicated right upper quadrant ultrasound. Electronically Signed: Rhonda Upton MD at 4:33 EST , Service support ,
== END ==
PROVIDERS: Family Provider Family Medicine; PCP Family Medicine; Referring Provider Nurse Practitioner Acute Care; Visit Provider Nurse Practitioner Acute Care
DX: R91.1 Solitary pulmonary nodule (principal)
CPT/HCPCS: 71250

== ENCOUNTER → 2019-07-05 07:36 | Outpatient (CLI) | payer MEDICARE, OTHER, SELFPAY ==
[2019-07-05 07:28] VITALS: BMI 24.0
--- NOTE | 2019-07-05 07:38 | RAD_ITS ---
STUDY: X-RAY CHEST REASON FOR EXAM: Female, 73 years old. Cough, congestion, nausea, vomiting, diarrhea x 5 days TECHNIQUE: PA and lateral views of the chest. COMPARISON: Comparison is made with prior examination of September 29, 2015. FINDINGS: Hyperinflation. Increased markings are seen in the right middle lobe as well as in the lingular segment of the left upper lobe suggestive of early bilateral infiltrates. Radiographic follow-up is recommended. There is no demonstrated pleural abnormality. Normal size heart. Normal mediastinum and suki. Normal visualized pulmonary arteries. There is atherosclerotic calcification of the aortic arch with tortuosity. There are diffuse degenerative changes of the visualized thoracic spine. Normal visualized ribs, clavicles, and shoulders. There is no demonstrated abnormality of the visualized soft tissue structures of the upper abdomen. RAD/Chest PA and Lateral IMPRESSION: Hyperinflation. Findings suggestive of early right middle lobe and lingular infiltrates. Electronically Signed: Audie Ramires, at 8:21 EST , Service support ,
== END ==
PROVIDERS: PCP Family Medicine; Referring Provider Physician Assistant; Visit Provider Physician Assistant
DX: R05 Cough (principal)
CPT/HCPCS: 71046

== ENCOUNTER → 2019-08-07 11:33 | Outpatient (CLI) | payer MEDICARE, OTHER, SELFPAY ==
[2019-07-11 08:23] VITALS: BMI 24.5
--- NOTE | 2019-08-07 11:45 | RAD_ITS ---
STUDY: X-RAY - PELVIS AND BILATERAL HIPS REASON FOR EXAM: Female, 73 years old. CHRONIC LEFT HIP PAIN, INCREASING IN PAIN INTENSITY OVER THE LAST YEAR, NKI TECHNIQUE: AP view of the pelvis.? 2 views of the right hip, and 2 views of the left hip were obtained. COMPARISON: None. FINDINGS: There is a non-specific bowel gas pattern. Normal visualized soft tissue structures. Normal bilateral iliac wings, sacroiliac joints and visualized sacrum. Normal bilateral superior and inferior pubic rami. Normal pubic symphysis. Normal bilateral ischial tuberosities. Normal visualized right femoral head. Normal right acetabulum. Normal right hip joint. Normal visualized left femoral head. Normal left acetabulum. Normal left hip joint. RAD/Hips B/L min 2 views w/ Pelvis IMPRESSION: Normal x-ray examination of the pelvis and bilateral hips. Electronically Signed: Audie Ramires, at 13:37 EDT , Service support ,
[2019-08-07 15:14] LABS: Absolute Lymphocyte Count 1.51 X10^3/uL (0.83-4.51); Absolute Neutrophil Count 4.5 X10^3/uL (2.0-7.7); Basophil# 0.06 X10^3/uL; Basophil% 0.9 % (0-1); Eosinophil# 0.23 X10^3/uL; Eosinophils% 3.4 % (0-5); Hematocrit 47.4 % (37-47); Hemoglobin 15.2 g/dL (12.0-15.0); Lymphocyte # 1.51 X10^3/ul (4.0); Lymphocyte % 22.2 % (19-41); Mean Corp Hgb Conc 32.1 g/dL (32-36); Mean Corpuscular Hgb 29.2 pg (27.0-32.0); Mean Corpuscular Volume 91.2 fL (81-99); Mean Platelet Vol. 11.7 fl (6.2-12.0); Monocyte# 0.44 X10^3/uL; Monocyte% 6.5 % (0-10); NRBC Flagged by Analyzer 0 % (0-5); Neutrophil # 4.54 X10^3/uL (2.7-7.7); Neutrophil % 66.7 % (47-70); Platelet Count 219 K/mm3 (150-450); RBC Distribution Width CV 12.8 % (11.6-14.6); RBC Distribution Width SD 42.7 fl (35.1-43.9); White Blood Count 6.8 K/mm3 (4.4-11.0)
[2019-08-07 15:30] LABS: Vitamin B12 678 pg/mL (211-911); Vitamin D,25 Hydroxy 35.3 ng/mL
[2019-08-07 16:39] LABS: ALB/GLOB Ratio 1.2 RATIO (0.9-2.4); AST(SGOT) 18 U/L (15-37); Alanine Aminotransfer ALT/SGPT 17 U/L (13-56); Albumin, Serum 3.8 g/dL (3.2-5.0); Alkaline Phosphatase 115 U/L (45-117); Anion Gap 9 (5-15); BUN 17 mg/dL (7-18); Calcium,Total 9.4 mg/dL (8.5-10.1); Chloride 106 mmol/L (98-107); Cholesterol 164 mg/dL (200); EST Glomerular Filtration Rate 58 mL/min (>60); Est Glom Filt Rate - Afr Amer 70 mL/min (>60); Globulin 3.2 g/dL (2.2-4.2); Glucose 89 mg/dL (74-106); High Density Lipoprotein 60 mg/dL; Phosphorus 3.1 mg/dL (2.5-4.9); Potassium 4.2 mmol/L (3.5-5.1); Sodium Level 140 mmol/L (136-145); Thyroid Stim Hormone (TSH) 3.43 uIU/mL (0.358-3.74); Triglycerides 51 mg/dL; Very Low Density Lipoprotein 10 mg/dL (5-40)
== END ==
PROVIDERS: PCP Family Medicine; Referring Provider Family Medicine; Visit Provider Family Medicine
DX: M25.552 Pain in left hip (principal); M25.551 Pain in right hip; D51.0 Vitamin B12 deficiency anemia due to intrinsic factor deficiency; E03.9 Hypothyroidism, unspecified; E78.00 Pure hypercholesterolemia, unspecified; M85.80 Other specified disorders of bone density and structure, unspecified site
CPT/HCPCS: 73521; 80053; 80061; 82306; 82607; 82746; 84100; 84443; 85025

== ENCOUNTER 2019-08-30 12:00 | Outpatient (RCR) | payer MEDICARE, OTHER, SELFPAY ==
[2019-07-11 08:23] VITALS: BMI 24.5
--- NOTE | 2019-08-14 16:18 | HP.PTEVAL_ITS ---
Patient's Visit Information HANDY VEGA is a 73 year old F referred to Physical Therapy by Jose Xiong MD with a diagnosis of B hip pain. Date of Evaluation: 08/14/19 Physical Therapist: Ayush Hinkle, MESERET, OCS, CSCS - Visit Plan Frequency: 3x /Week Duration: 2-4 Weeks Plan: 3x/week for 3 weeks for : 1. US nonthermal to L trochanteric area L. 2. rollout and stretch L ITB, piriformis, quad and HS, leg pull. 3. Progress home stretches. 4. Strengthen hip stabs - Subjective Subjective: Fired up today. appointments cancelled with eye doctor. L hip pain laterally when turning in a chair to get out of car, first couple steps out of chair hurt, moving leg out to side hurts. side sleeper at night hurts to lie on L side laterally. Pain is up to 5/10 and better as she walks. Sleep is not great but hip not too bad. 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 Spends day taking care of and making sure he does not fall as he has multiple medical issues. This pain is present for 4 years but much worse lately. [address] [place] is worse. Working out at was not effected. Does walking TM and Nustep in gym and that was never a problem. - Pain L hip Pain Intensity (Out of 10): 0 Pain Intensity Range: 0, 5 - Objective Walks normal and steps normal, some minor pain getting out of chair but I. Tender max over L trochanter, L ITB mod tight, quad and HS also mod tight without pain. reflexes 2/3 patella and achilles B. Sensation to gross light touch diminished distally in feet. Strength hips 3+ in rotations and abd and ext with 3 degrees B hip AROM ext. flexion and adduction 4/5. - Goals Goal 1:: Sleep withotu interruption due to L hip at home Goal Time Frame: 2-4 Weeks Goal 2:: Patient exit car withotu noticing L hip Goal Time Frame: 2-4 Weeks Goal 3:: Pt feel 90% better in L hip pain and no fucntional limitations Goal Time Frame: 2-4 Weeks Goal 4:: LEFS less than 40% disability. Goal Time Frame: 2-4 Weeks - Rehabilitation Potential Physical Therapy Diagnosis: L trochanteric bursitis. Rehabilitation Potential: Fair - Anticipated Interventions Patient/Client Instruction: Educate patient on: Condition, Plan of Care For the Purpose of:: To decrease pain, To increase tolerance to activity/condition/position Therapeutic Exercise to Include: Strength training, Flexibilty training, Passive ROM, Active ROM For the Purpose of:: To decrease pain, To improve muscle performance and motor function, To increase tolerance to activity/condition/position, To improve ability of physical actions for home/community/work/leisure Manual Therapy Techniques to Include: Mobilization, Soft tissue mobilization For the Purpose of:: To decrease pain, To increase ROM Ultrasound (thermal/non thermal): Yes - nonthermal For the Purpose of:: To decrease swelling/inflammation Thank you for the opportunity to evaluate your patient. For Medicare and Medicare HMO plans, please review the plan of care and approve it. It will need to be FAXED BACK to us at [phone] for Medicare purposes. For Medicare only, by signing this I certify the plan of care. Please let me know if there are questions or concerns regarding this plan of care. Physician Signature:_ Date:
--- NOTE | 2019-08-30 13:02 | HP.PTREVAL ---
Jose Xiong MD, It has been my pleasure to treat HANDY VEGA over the last 8 visits for B hip pain. Please see the progress note below for an update on the physical therapy plan of care! Subjective: Did exercises at home. Not as sore as the day prior. Better with function getting in and out of car. Frustrated with life with and new meds for hiccups making him weak. Objective/Function: Tenderness much better. AROM L hip still WNL and without pain. Tightness persists in itb, hip flexor and piriformis mildly.\Walks normal and transfers normal. Fair prognosis to continue progress with HEP toward remaining goal. Plan Plan: f/u two weeks to progress strength to WB as needed adn d/c. pt to call prior if worsens. Goals Goal 1:: Sleep withotu interruption due to L hip at home Goal Time Frame: 2-4 Weeks Goal Progress: Goal Met Goal 2:: Patient exit car withotu noticing L hip Goal Time Frame: 2-4 Weeks Goal Progress: Goal Met Goal 3:: Pt feel 90% better in L hip pain and no fucntional limitations Goal Time Frame: 2-4 Weeks Goal Progress: Progressing Goal 4:: LEFS less than 40% disability. Goal Time Frame: 2-4 Weeks Goal Progress: Goal Met Anticipated Interventions Patient/Client Instruction: Educate patient on: Condition, Plan of Care For the Purpose of:: To decrease pain, To increase tolerance to activity/condition/position Therapeutic Exercise to Include: Strength training, Flexibilty training, Passive ROM, Active ROM For the Purpose of:: To decrease pain, To improve muscle performance and motor function, To increase tolerance to activity/condition/position, To improve ability of physical actions for home/community/work/leisure Manual Therapy Techniques to Include: Mobilization, Soft tissue mobilization For the Purpose of:: To decrease pain, To increase ROM Ultrasound (thermal/non thermal): Yes - nonthermal For the Purpose of:: To decrease swelling/inflammation Please do not hesitate to contact me at [phone] by phone or if you have questions or concerns regarding this new plan of care! Sincerely, Ayush Hinkle, DPT, OCS, CSCS
--- NOTE | 2020-01-11 14:10 | HP.PT.NRP ---
HANDY VEGA was seen in my office for initial evaluation on 08/14/19. The following Plan of Care was established for this patient: Initial Frequency: 3x /Week Initial Duration: 2-4 Weeks Patient/Client Instruction: Educate patient on: Condition, Plan of Care For the Purpose of:: To decrease pain, To increase tolerance to activity/condition/position Therapeutic Exercise to Include: Strength training, Flexibilty training, Passive ROM, Active ROM For the Purpose of:: To decrease pain, To improve muscle performance and motor function, To increase tolerance to activity/condition/position, To improve ability of physical actions for home/community/work/leisure Manual Therapy Techniques to Include: Mobilization, Soft tissue mobilization For the Purpose of:: To decrease pain, To increase ROM Ultrasound (thermal/non thermal): Yes - nonthermal For the Purpose of:: To decrease swelling/inflammation This patient was last seen in our office 08/30/19. Pertinent comments regarding their Physical therapy will appear below: Pt seen 8 visits of POC and was doing fairly well at 75% better. She was to f/u a month later but had some difficulty with her husbands health and via phone call was not sure she needed to follow up. We cancelled that visit adn I will disconintue her at this time. At this point I will be discontinuing this patient from physical therapy. I would be happy to see this patient again in the future if found appropriate by the physician. Thank you! Ayush Hinkle, DPT, OCS, CSCS
== END 2019-08-30 19:00 | disposition home or self-care (01) ==
LOC: PT 12:00
PROVIDERS: PCP Family Medicine; Referring Provider Family Medicine; Visit Provider Family Medicine
DX: M25.551 Pain in right hip (principal); M25.552 Pain in left hip
CPT/HCPCS: 97035; 97110; 97140; 97162; 97164

== ENCOUNTER → 2019-12-24 14:31 | Outpatient (CLI) | payer MEDICARE, OTHER, SELFPAY ==
[2019-09-27 08:46] VITALS: BMI 24.5
--- NOTE | 2019-12-24 14:35 | BI_ITS ---
MAMMOGRAPHY - BILATERAL SCREENING REASON FOR EXAM: Female, 74 years old. Routine annual screening examination. PERTINENT HISTORY: Non-contributory. TECHNIQUE: Digital bilateral breast loreta (3D mammographic acquisition) in the CC and MLO projections. 2-D mediolateral oblique (MLO) and craniocaudad (CC) views of both breasts were obtained. CAD: Full Field Digital Mammography with Computer Added Detection was performed. COMPARISON: Comparison is made with prior study dated 05/15/2018 and 03/19/2017. FINDINGS: Breast Composition: There are scattered areas of fibroglandular density. There are no dominant masses or suspicious calcifications. Stable small benign appearing bilateral axillary lymph nodes. No other significant abnormalities are identified. There has been no significant change since the prior study. BI/SCREEN MAMM (CAD) W/LORETA BILAT IMPRESSION: Stable bilateral screening mammogram. Yearly follow-up mammogram recommended. (A) ASSESSMENT CATEGORY: BIRADS Category 2: Benign. A letter regarding these results will be sent to the patient by the facility within 30 days. Approximately 10% of breast cancers are not detected by mammography. A normal mammogram should not delay biopsy of a clinically suspicious abnormality. [id number] Electronically Signed: Audie Ramires, at 15:31 EDT , Service support ,
== END ==
PROVIDERS: PCP Family Medicine; Referring Provider Family Medicine; Visit Provider Family Medicine
DX: Z12.31 Encounter for screening mammogram for malignant neoplasm of breast (principal)
CPT/HCPCS: 77063; 77067

== ENCOUNTER → 2020-01-07 07:18 | Outpatient (CLI) | payer MEDICARE, OTHER, SELFPAY ==
[2019-09-27 08:46] VITALS: BMI 24.5
[2020-01-07 09:50] LABS: Absolute Lymphocyte Count 1.59 X10^3/uL (0.83-4.51); Absolute Neutrophil Count 4.1 X10^3/uL (2.0-7.7); Basophil# 0.04 X10^3/uL; Basophil% 0.6 % (0-1); Eosinophil# 0.22 X10^3/uL; Eosinophils% 3.4 % (0-5); Hematocrit 46.2 % (37-47); Hemoglobin 15.7 g/dL (12.0-15.0); Lymphocyte # 1.59 X10^3/ul (4.0); Lymphocyte % 24.8 % (19-41); Mean Corpuscular Hgb 30.9 pg (27.0-32.0); Mean Corpuscular Volume 90.9 fL (81-99); Mean Platelet Vol. 11.3 fl (6.2-12.0); Monocyte# 0.47 X10^3/uL; Monocyte% 7.3 % (0-10); NRBC Flagged by Analyzer 0 % (0-5); Neutrophil # 4.08 X10^3/uL (2.7-7.7); Neutrophil % 63.7 % (47-70); Platelet Count 217 K/mm3 (150-450); RBC Distribution Width CV 12.6 % (11.6-14.6); RBC Distribution Width SD 41.5 fl (35.1-43.9); Red Blood Count 5.08 M/mm3 (4.2-5.4); White Blood Count 6.4 K/mm3 (4.4-11.0)
[2020-01-07 10:20] LABS: Protein, Urine (Random) 6.9 mg/dL (<11.9); Protein:Creat Ratio 155 mg/g CRE (0-200)
[2020-01-07 10:21] LABS: ALB/GLOB Ratio 1.2 RATIO (0.9-2.4); AST(SGOT) 16 U/L (15-37); Alanine Aminotransfer ALT/SGPT 17 U/L (13-56); Albumin, Serum 3.7 g/dL (3.2-5.0); Alkaline Phosphatase 105 U/L (45-117); Anion Gap 6 (5-15); BUN 19 mg/dL (7-18); BUN/Creat Ratio 19.3 RATIO (10-20); Calcium,Total 9.4 mg/dL (8.5-10.1); Chloride 111 mmol/L (98-107); Cholesterol 152 mg/dL (200); Creatinine, Serum 0.99 mg/dL (0.55-1.02); EST Glomerular Filtration Rate 58 mL/min (>60); Est Glom Filt Rate - Afr Amer 71 mL/min (>60); Globulin 3.1 g/dL (2.2-4.2); Glucose 88 mg/dL (74-106); High Density Lipoprotein 52 mg/dL; Phosphorus 3.2 mg/dL (2.5-4.9); Protein, Total 6.8 g/dL (6.4-8.2); Sodium Level 143 mmol/L (136-145); T4 Free Direct 1.12 ng/dL (0.76-1.46); Thyroid Stim Hormone (TSH) 5.92 uIU/mL (0.358-3.74); Triglycerides 68 mg/dL; Very Low Density Lipoprotein 14 mg/dL (5-40)
[2020-01-07 11:41] LABS: Vitamin B12 454 pg/mL (211-911); Vitamin D,25 Hydroxy 41.2 ng/mL
== END ==
PROVIDERS: PCP Family Medicine; Referring Provider Family Medicine; Visit Provider Family Medicine
DX: N18.9 Chronic kidney disease, unspecified (principal); E03.9 Hypothyroidism, unspecified; D51.0 Vitamin B12 deficiency anemia due to intrinsic factor deficiency; M85.80 Other specified disorders of bone density and structure, unspecified site; E78.00 Pure hypercholesterolemia, unspecified
CPT/HCPCS: 36415; 80053; 80061; 82306; 82570; 82607; 84100; 84156; 84439; 84443; 85025

== ENCOUNTER → 2020-01-10 11:59 | Outpatient (CLI) | payer MEDICARE, OTHER, SELFPAY ==
[2019-09-27 08:46] VITALS: BMI 24.5
[2020-01-10 16:05] LABS: Ferritin 122 ng/mL (8-252); Iron 91 ug/dL (50-170); Iron Binding Capacity,Total 256 ug/dL (250-450)
[2020-01-12 13:17] LABS: Transferrin 214 mg/dL (192-364)
== END ==
PROVIDERS: PCP Family Medicine; Referring Provider Family Medicine; Visit Provider Family Medicine
DX: D75.1 Secondary polycythemia (principal); D51.0 Vitamin B12 deficiency anemia due to intrinsic factor deficiency
CPT/HCPCS: 36415; 82728; 83540; 83550; 84466

== ENCOUNTER → 2020-04-04 13:15 | Outpatient (CLI) | payer MEDICARE, OTHER, SELFPAY ==
[2020-03-26 12:57] VITALS: BMI 23.5
--- NOTE | 2020-04-04 13:16 | CT_ITS ---
STUDY: CT CHEST WITHOUT CONTRAST REASON FOR EXAM: Female, 74 years old. Lung nodule follow up, hx COPD, former smoker, 1 pack/day x 50 years. RADIATION DOSAGE (If Supplied By Facility): CTDIvol = ( 7.10 ) mGy, DLP = ( 28.828 ) mGycm TECHNIQUE: Transaxial imaging was performed without the administration of intravenous contrast material. Multiplanar coronal and sagittal images were reformatted. Individualized dose optimization techniques were used for this CT. COMPARISON: Comparison is made with prior examination dated 03/22/2019. FINDINGS: Stable small benign-appearing bilateral axillary lymph nodes. Hyperinflation and diffuse emphysematous changes worse in the upper lobes with centrilobular changes and small bulla. Stable 6 mm nodule in the right lung apex as seen on axial image #20. Stable appearance of a similar appearing nodule in the midportion of the right upper lobe as seen on axial image #24. Stable 4 mm noncalcified nodule in the posterior medial segment of the left lower lobe as seen on axial image #81. There is no demonstrated pleural abnormality. There are calcifications of the coronary arteries. There are multiple small lymph nodes within the mediastinum, which are normal in size and morphology most compatible with reactive lymph hyperplasia. Normal hilar regions. Normal unenhanced pulmonary arteries. There is atherosclerotic calcification of the aortic arch with tortuosity and elongation of the aortic arch and descending thoracic aorta. There are multi-level degenerative changes of the thoracic spine. Calcified splenic granulomas. CT/Chest without Contrast IMPRESSION: Stable examination. Electronically Signed: Audie Ramires, at 14:44 EST , Service support ,
== END ==
PROVIDERS: PCP Family Medicine; Referring Provider Internal Medicine Critical Care Medicine; Visit Provider Internal Medicine Critical Care Medicine
DX: R91.1 Solitary pulmonary nodule (principal)
CPT/HCPCS: 71250

== ENCOUNTER → 2020-12-02 13:54 | Outpatient (CLI) | payer MEDICARE, OTHER, SELFPAY ==
[2020-11-04 07:53] VITALS: BMI 23.6
[2020-12-02 15:24] LABS: Absolute Lymphocyte Count 1.76 X10^3/uL (0.83-4.51); Absolute Neutrophil Count 4.6 X10^3/uL (2.0-7.7); Basophil# 0.06 X10^3/uL; Basophil% 0.9 % (0-1); Eosinophils% 2.8 % (0-5); Hematocrit 45.7 % (37-47); Hemoglobin 15.1 g/dL (12.0-15.0); Lymphocyte # 1.76 X10^3/ul (0.83-4.51); Mean Corpuscular Hgb 29.6 pg (27.0-32.0); Mean Corpuscular Volume 89.6 fL (81-99); Mean Platelet Vol. 11.4 fl (6.2-12.0); Monocyte# 0.46 X10^3/uL; Monocyte% 6.5 % (0-10); NRBC Flagged by Analyzer 0 % (0-5); Neutrophil # 4.55 X10^3/uL (2.7-7.7); Neutrophil % 64.7 % (47-70); Platelet Count 239 K/mm3 (150-450); RBC Distribution Width CV 12.4 % (11.6-14.6); RBC Distribution Width SD 41.1 fl (35.1-43.9)
[2020-12-02 15:32] LABS: Erythrocyte Sedimentation Rate 15 mm/hr (0-30)
[2020-12-02 15:55] LABS: Vitamin B12 670 pg/mL (211-911); Vitamin D,25 Hydroxy 32.1 ng/mL
[2020-12-02 16:43] LABS: ALB/GLOB Ratio 1.2 RATIO (0.9-2.4); AST(SGOT) 18 U/L (15-37); Alanine Aminotransfer ALT/SGPT 24 U/L (13-56); Albumin, Serum 3.7 g/dL (3.2-5.0); Alkaline Phosphatase 125 U/L (45-117); Anion Gap 7 (5-15); BUN 21 mg/dL (7-18); BUN/Creat Ratio 20.6 RATIO (10-20); CRP < 2.90 mg/L (0.0-3.0); Calcium,Total 9.4 mg/dL (8.5-10.1); Chloride 109 mmol/L (98-107); Creatinine, Serum 1.02 mg/dL (0.55-1.02); EST Glomerular Filtration Rate 56 mL/min (>60); Est Glom Filt Rate - Afr Amer 68 mL/min (>60); Glucose 84 mg/dL (74-106); Protein, Total 6.7 g/dL (6.4-8.2); Sodium Level 141 mmol/L (136-145); Thyroid Stim Hormone (TSH) 0.65 uIU/mL (0.358-3.74)
[2020-12-03 08:29] LABS: PTHIN 73.7 pg/mL (18.4-80.1)
== END ==
PROVIDERS: PCP Family Medicine; Referring Provider Family Medicine; Visit Provider Family Medicine
DX: G60.9 Hereditary and idiopathic neuropathy, unspecified (principal); N18.9 Chronic kidney disease, unspecified; E03.9 Hypothyroidism, unspecified; M85.80 Other specified disorders of bone density and structure, unspecified site; D51.0 Vitamin B12 deficiency anemia due to intrinsic factor deficiency; G43.909 Migraine, unspecified, not intractable, without status migrainosus
CPT/HCPCS: 36415; 80053; 82306; 82607; 82746; 83970; 84443; 85025; 85652; 86140

== ENCOUNTER → 2021-01-31 09:44 | Outpatient (CLI) | payer MEDICARE, OTHER, SELFPAY ==
--- NOTE | 2021-01-31 09:46 | CT_ITS ---
STUDY: CT LUMBAR SPINE WITHOUT CONTRAST REASON FOR EXAM: Female, 75 years old. BACK PAIN TECHNIQUE: The patient was scanned in a multi detector CT scanner. High resolution transaxial imaging was performed. Images were obtained from T12 to S1. Sagittal and coronal images were reconstructed. Individualized dose optimization techniques were used for this CT. COMPARISON: CTAP 08/27/2014 FINDINGS: Normal lumbar lordosis. There is no substantial scoliosis. Normal vertebrae of the lumbar spine. L1-2: Normal endplates. Normal disc height and morphology. Normal central canal and intervertebral neuroforamina. L2-3: Normal endplates. Normal disc height and morphology. Normal central canal and intervertebral neuroforamina. L3-4: Loss of intervertebral disc height. There is endplate spondylosis of the vertebral body. Normal central canal and intervertebral neuroforamina. There is bilateral facet arthropathy. There is bilateral ligamentum flavum thickening. Posterior disc bulge osteophyte complex. L4-5: Loss of intervertebral disc height. There is endplate spondylosis of the vertebral body. Normal central canal and intervertebral neuroforamina. There is bilateral facet arthropathy. There is bilateral ligamentum flavum thickening. L5-S1: Loss of intervertebral disc height. There is endplate spondylosis of the vertebral body. Minimal bilateral neural foraminal stenosis. Minimal compression of exiting bilateral L5 nerve roots. No central spinal stenosis. There is bilateral facet arthropathy. Vacuum disc phenomenon. Posterior disc bulge. Normal visualized paraspinous soft tissue structures. IMPRESSION: (NOT LISTED IN ORDER OF SIGNIFICANCE) Degenerative findings from L3-4 to L5-S1. Electronically Signed: Paul Stout MD at 11:15 EDT , Service support , CT/Spine Lumbar without Contrast
--- NOTE | 2021-01-31 09:46 | CT_ITS ---
EXAM: CT SPINE - CERVICAL WITHOUT IV REASON FOR EXAM: Female, 75 years old. NECK PAIN hx TOS, paresthesia and RLE radiculopathy. cervical st Individualized dose optimization techniques were used for this CT. TECHNIQUE: Multiplanar images were obtained of the cervical spine. IV contrast was not utilized. COMPARISON: None. FINDINGS: Normal craniovertebral junction. Normal anterior atlantoaxial articulation. Normal odontoid process. Normal cervical lordosis. Normal vertebral bodies and posterior osseous elements. C2-3: Normal endplates. Normal disc height and morphology. Normal central canal and intervertebral neuroforamina. C3-4: Normal endplates. Normal disc height and morphology. Normal central canal and intervertebral neuroforamina. C4-5: Normal endplates. Normal disc height and morphology. Normal central canal and intervertebral neuroforamina. C5-6: Loss of intervertebral disc height. There is endplate spondylosis of the vertebral body. Normal central canal and intervertebral neuroforamina. There is bilateral facet arthropathy. C6-7: Loss of intervertebral disc height. There is endplate spondylosis of the vertebral body. Normal central canal and intervertebral neuroforamina. There is bilateral facet arthropathy. C7-T1: Normal endplates. Normal disc height and morphology. Normal central canal and intervertebral neuroforamina. Normal visualized soft tissue structures. IMPRESSION: (NOT LISTED IN ORDER OF SIGNIFICANCE) Mild degenerative findings at C5-6 and C6-7. Electronically Signed: Paul Stout MD at 11:28 EDT , Service support , CT/Spine Cervical without Contras
== END ==
PROVIDERS: PCP Family Medicine; Visit Provider Family Medicine
DX: G54.0 Brachial plexus disorders (principal); R20.2 Paresthesia of skin
CPT/HCPCS: 72125; 72131

== ENCOUNTER 2021-06-02 14:06 | Outpatient (CLI) | payer MEDICARE, OTHER, SELFPAY ==
[2021-06-02 17:43] LABS: Absolute Lymphocyte Count 1.89 X10^3/uL (0.83-4.51); Absolute Neutrophil Count 5.1 X10^3/uL (2.0-7.7); Basophil# 0.06 X10^3/uL; Basophil% 0.8 % (0-1); Eosinophil# 0.16 X10^3/uL; Eosinophils% 2.1 % (0-5); Hematocrit 48.2 % (37-47); Hemoglobin 15.8 g/dL (12.0-15.0); Lymphocyte # 1.89 X10^3/ul (0.83-4.51); Lymphocyte % 24.6 % (19-41); Mean Corp Hgb Conc 32.8 g/dL (32-36); Mean Corpuscular Hgb 30.1 pg (27.0-32.0); Mean Corpuscular Volume 91.8 fL (81-99); Mean Platelet Vol. 11.8 fl (6.2-12.0); Monocyte# 0.45 X10^3/uL; Monocyte% 5.9 % (0-10); NRBC Flagged by Analyzer 0 % (0-5); Neutrophil # 5.09 X10^3/uL (2.7-7.7); Neutrophil % 66.3 % (47-70); Platelet Count 257 K/mm3 (150-450); RBC Distribution Width CV 12.9 % (11.6-14.6); RBC Distribution Width SD 43.6 fl (35.1-43.9); Red Blood Count 5.25 M/mm3 (4.2-5.4); White Blood Count 7.7 K/mm3 (4.4-11.0)
[2021-06-02 18:35] LABS: ALB/GLOB Ratio 1.2 RATIO (0.9-2.4); AST(SGOT) 16 U/L (15-37); Alanine Aminotransfer ALT/SGPT 24 U/L (13-56); Albumin, Serum 3.9 g/dL (3.2-5.0); Alkaline Phosphatase 126 U/L (45-117); Anion Gap 6 (5-15); BUN 18 mg/dL (7-18); BUN/Creat Ratio 17.3 RATIO (10-20); CRP < 2.90 mg/L (0.0-3.0); Calcium,Total 9.7 mg/dL (8.5-10.1); Chloride 106 mmol/L (98-107); Creatinine, Serum 1.04 mg/dL (0.55-1.02); EST Glomerular Filtration Rate 55 mL/min (>60); Est Glom Filt Rate - Afr Amer 66 mL/min (>60); Globulin 3.2 g/dL (2.2-4.2); Glucose 109 mg/dL (74-106); Magnesium 2.2 mg/dL (1.6-2.6); Potassium 3.9 mmol/L (3.5-5.1); Protein, Total 7.1 g/dL (6.4-8.2); Sodium Level 142 mmol/L (136-145); T4 Free Direct 1.34 ng/dL (0.76-1.46); Thyroid Stim Hormone (TSH) 0.87 uIU/mL (0.358-3.74)
== END 2021-06-02 23:59 | disposition short-term general hospital (02) ==
LOC: MTLAB 14:08
PROVIDERS: PCP Family Medicine; Referring Provider Family Medicine; Visit Provider Family Medicine
DX: K58.9 Irritable bowel syndrome, unspecified (principal); J44.9 Chronic obstructive pulmonary disease, unspecified; E03.9 Hypothyroidism, unspecified; M79.7 Fibromyalgia
CPT/HCPCS: 36415; 80053; 83735; 84439; 84443; 85025; 86140

== ENCOUNTER 2021-06-29 13:17 | Outpatient (CLI) | payer MEDICARE, OTHER, SELFPAY ==
--- NOTE | 2021-06-29 13:25 | CT_ITS ---
STUDY: CT CHEST WITHOUT CONTRAST REASON FOR EXAM: Female, 75 years old. Lung Nodules follow up RADIATION DOSAGE (If Supplied By Facility): CTDIvol = ( 7.16 ) mGy, DLP = ( 275.41 ) mGycm TECHNIQUE: Transaxial imaging was performed without the administration of intravenous contrast material. Multiplanar coronal and sagittal images were reformatted. Individualized dose optimization techniques were used for this CT. COMPARISON: Comparison is made with prior examination dated 04/04/2020. FINDINGS: Diffuse emphysematous changes with centrilobular emphysema worse in the upper lobes. Stable 6 mm nodule in the posterior right upper lobe as seen on axial image #19. Stable 4 mm noncalcified nodule in the posterior medial segment of the right upper lobe as seen on axial image #24. Stable 4 mm noncalcified nodule in the posterior medial segment of the left lower lobe. Stable linear scarring in the anterior medial aspect of the right middle lobe. There is no demonstrated pleural abnormality. There are calcifications of the coronary arteries. There are multiple small lymph nodes within the mediastinum, which are normal in size and morphology most compatible with reactive lymph hyperplasia. Normal hilar regions. Normal unenhanced pulmonary arteries. There is atherosclerotic calcification of the aortic arch with tortuosity and elongation of the aortic arch and descending thoracic aorta. Normal osseous structures. There is no demonstrated abnormality of the visualized upper abdomen. CT/Chest without Contrast IMPRESSION: Stable examination. 12 month follow-up is recommended. Electronically Signed: Audie Ramires MD at 15:07 EST ,
== END 2021-06-29 23:59 | disposition home or self-care (01) ==
LOC: CT 13:17
PROVIDERS: PCP Family Medicine; Referring Provider Internal Medicine Critical Care Medicine; Visit Provider Internal Medicine Critical Care Medicine
DX: R91.1 Solitary pulmonary nodule (principal)
CPT/HCPCS: 71250

== ENCOUNTER → 2021-12-01 | Outpatient (CLI) | payer MEDICARE, OTHER, SELFPAY ==
[2021-12-01 17:59] LABS: Basophil# 0.06 X10^3/uL; Basophil% 0.8 % (0-1); Eosinophil# 0.18 X10^3/uL; Eosinophils% 2.5 % (0-5); Hematocrit 47.8 % (37-47); Hemoglobin 15.3 g/dL (12.0-15.0); Lymphocyte % 21.8 % (19-41); Mean Corpuscular Hgb 29.7 pg (27.0-32.0); Mean Corpuscular Volume 92.8 fL (81-99); Mean Platelet Vol. 11.6 fl (6.2-12.0); Monocyte# 0.47 X10^3/uL; Monocyte% 6.4 % (0-10); NRBC Flagged by Analyzer 0 % (0-5); Neutrophil # 4.99 X10^3/uL (2.7-7.7); Neutrophil % 68.1 % (47-70); Platelet Count 256 K/mm3 (150-450); RBC Distribution Width CV 12.6 % (11.6-14.6); RBC Distribution Width SD 43.1 fl (35.1-43.9); Red Blood Count 5.15 M/mm3 (4.2-5.4); White Blood Count 7.3 K/mm3 (4.4-11.0)
[2021-12-01 18:17] LABS: Vitamin D,25 Hydroxy 43.6 ng/mL
[2021-12-01 18:26] LABS: ALB/GLOB Ratio 1.2 RATIO (0.9-2.4); AST(SGOT) 16 U/L (15-37); Alanine Aminotransfer ALT/SGPT 19 U/L (13-56); Albumin, Serum 3.8 g/dL (3.2-5.0); Alkaline Phosphatase 113 U/L (45-117); Anion Gap 5 (5-15); BUN 22 mg/dL (7-18); BUN/Creat Ratio 21.4 RATIO (10-20); Calcium,Total 9.5 mg/dL (8.5-10.1); Chloride 109 mmol/L (98-107); Creatinine, Serum 1.03 mg/dL (0.55-1.02); EST Glomerular Filtration Rate 55 mL/min (>60); Est Glom Filt Rate - Afr Amer 67 mL/min (>60); Globulin 3.1 g/dL (2.2-4.2); Glucose 123 mg/dL (74-106); Potassium 4.4 mmol/L (3.5-5.1); Protein, Total 6.9 g/dL (6.4-8.2); Sodium Level 142 mmol/L (136-145); T4 Free Direct 1.42 ng/dL (0.76-1.46); Thyroid Stim Hormone (TSH) 0.25 uIU/mL (0.358-3.74)
== END | disposition home or self-care (01) ==
LOC: MTLAB 16:00
PROVIDERS: PCP Family Medicine; Referring Provider Family Medicine; Visit Provider Family Medicine
DX: J44.9 Chronic obstructive pulmonary disease, unspecified (principal); M85.80 Other specified disorders of bone density and structure, unspecified site; E03.9 Hypothyroidism, unspecified
CPT/HCPCS: 36415; 80053; 82306; 84439; 84443; 85025

== ENCOUNTER → 2021-12-09 | Outpatient (CLI) | payer MEDICARE, OTHER, SELFPAY ==
--- NOTE | 2021-12-09 14:22 | CT_ITS ---
STUDY: CT LUMBAR SPINE WITHOUT CONTRAST REASON FOR EXAM: Female, 76 years old. Lumbar pain, waking at night, chronic, s/p trauma, concern comp?re RADIATION DOSAGE (If Supplied By Facility): CTDIvol = ( 13.82 ) mGy, DLP = ( 484.36 ) mGycm TECHNIQUE: The patient was scanned in a multi detector CT scanner. High resolution transaxial imaging was performed. Images were obtained from L1 to S1 vertebral level. Sagittal and coronal images were reconstructed. Individualized dose optimization techniques were used for this CT. COMPARISON: Comparison is made with prior study 01/31/2021. FINDINGS: There is straightening of the normal lumbar lordosis. There is no substantial scoliosis. Normal vertebrae of the lumbar spine. L1-2: Normal endplates. Normal disc height and morphology. Normal bilateral facet joints. Normal central canal and bilateral lateral recesses. Normal bilateral intervertebral neural foramina. L2-3: Normal endplates. Normal disc height and morphology. Normal bilateral facet joints. Normal central canal and bilateral lateral recesses. Normal bilateral intervertebral neural foramina. L3-4: Mild degree of disc space narrowing. Minimal anterior spondylosis. L4-5: Mild degree of disc space narrowing. Facet joint osteoarthritis. Mild thickening of the ligamenta flava. Mild degree of bilateral neural foraminal stenosis. L5-S1: Marked degree of disc space narrowing with subchondral sclerosis and disc degeneration. Mild posterior disc bulge. Mild degree of the lateral neural foraminal stenosis. Atherosclerotic plaque formation of the abdominal aorta. CT/Spine Lumbar without Contrast IMPRESSION: Multilevel degenerative changes, as described above. Electronically Signed: Audie Ramires MD at 11:07 EDT ,
== END | disposition home or self-care (01) ==
LOC: CT 14:19
PROVIDERS: PCP Family Medicine; Referring Provider Family Medicine; Visit Provider Family Medicine
DX: M54.50 Low back pain, unspecified (principal)
CPT/HCPCS: 72131

== ENCOUNTER → 2021-12-15 | Outpatient (CLI) | payer MEDICARE, OTHER, SELFPAY ==
--- NOTE | 2021-12-15 13:21 | BI_ITS ---
MAMMOGRAPHY - BILATERAL SCREENING 3-D TOMOSYNTHESIS REASON FOR EXAM: Female, 76 years old. Routine screening PERTINENT HISTORY: No significant family history. TECHNIQUE: 2-D mammograms and 3-D Tomosynthesis of the breast (s) were performed. CAD was performed. COMPARISON: 12/24/2019 FINDINGS: The breast composition is composed of scattered fibroglandular density. Scattered benign calcifications are seen. No dense spiculated masses or suspicious microcalcifications are identified. No architectural distortion is identified. There is no skin thickening or retraction. There has been no significant change since the prior study. BI/SCRN MAMM (CAD)W/LORETA BILAT IMPRESSION: No mammographic signs of malignancy. Routine yearly mammograms recommended. ASSESSMENT CATEGORY: BIRADS Category 1: Negative. A letter regarding these results will be sent to the patient by the facility within 30 days. FOLLOW UP RECOMMENDATION: Yearly follow up mammogram recommended. (A) Approximately 10% of breast cancers are not detected by mammography. A normal mammogram should not delay biopsy of a clinically suspicious abnormality. Electronically Signed: Ke Riley MD at 11:15 EDT ,
--- NOTE | 2021-12-15 13:23 | BD_ITS ---
STUDY: DUAL ENERGY X-RAY ABSORPTIOMETRY / DXA REASON FOR EXAM: Female, 76 years old. M85.89. Patient is postmenopausal. TECHNIQUE: Bone Mineral Density (BMD) measurements of lumbar spine and bilateral hips were obtained. COMPARISON: Comparison is made with prior study dated 12/19/2018. FINDINGS: Lumbar Spine (L1-L4): g/cm2 (0.815) / T-score (-1.8) / Z-score (0.6) Findings are suggestive of osteopenia with a moderate fracture risk. Left Femur Total: g/cm2 (0.783) / T-score (-1.3) / Z-score (0.5) Left Femoral Neck: g/cm2 (0.713) / T-score (-1.2) / Z-score (0.9) Right Femur Total: g/cm2 (0.781) / T-score (-1.3) / Z-score (0.5) Right Femoral Neck: g/cm2 (0.760) / T-score (-0.8) / Z-score (1.3) The T-Scores on the most recent prior examination were: Lumbar Spine (L1-L4): There has been worsening of bone density since the previous examination. Left Femur Total: which represents a worsening of 0.3%. Right Femur Total: which represents an improvement of 1.1%. BD/Dexa Bone Density Study IMPRESSION: The patient is considered osteopenic as outlined below according to World Bert Organization (WHO) criteria with a moderate fracture risk. There has been worsening of bone density since the previous examination. Reference Information: The T-score is the number of standard deviations above or below the standard which is normal for young adults at their peak bone mineral density. The World Health Organization (WHO) interprets the T-scores as follows: Above -1 Normal bone density Between -1 and -2.5 Osteopenia Equal to / or below -2.5 Osteoporosis As a practical clinical guideline, osteopenia may be graded as follows: Mild -1 through -1.5 Moderate -1.6 through -2.0 Severe -2.1 through -2.4 The Z-score is the number of standard deviations above or below age-matched controls. A Z-score of less than -1.5 would be considered abnormal. References: 1. NIH Osteoporosis and Related Bone Diseases www osteo.org 2. International Society for Clinical Densitometry www iscd.org 3. National Osteoporosis Foundation www nof.org Electronically Signed: Audie Ramires MD at 10:12 EDT ,
== END | disposition home or self-care (01) ==
LOC: OPBD 13:18
PROVIDERS: PCP Family Medicine; Visit Provider Family Medicine
DX: Z12.31 Encounter for screening mammogram for malignant neoplasm of breast (principal); M85.89 Other specified disorders of bone density and structure, multiple sites
CPT/HCPCS: 77063; 77067; 77080

== ENCOUNTER → 2022-01-25 | Outpatient (CLI) | payer MEDICARE, OTHER, SELFPAY ==
--- NOTE | 2022-01-25 15:50 | RAD_ITS ---
INDICATION: bilateral lower abdominal pain and fullness on the RLQ EXAMINATION/TECHNIQUE: X-RAY - XR Abdomen Series W/ Chest 1 View: Frontal view chest with flat and upright frontal views of abdomen COMPARISON: Unenhanced chest CT from 06/29/2021 FINDINGS: --Chest: LINES/DEVICES: None. LUNGS: Hyperexpanded and emphysematous lungs again noted. No pulmonary edema or focal airspace consolidation. No pneumothorax or pleural effusion. MEDIASTINUM AND CARDIOVASCULAR STRUCTURES: Cardiomediastinal silhouette normal size. Atherosclerotic calcifications along the aorta. BONES AND SOFT TISSUES: No acute findings. --Abdomen: BOWEL GAS PATTERN: Non-obstructive. No pathologic bowel or stomach distention. FREE AIR: None visualized. ORGANOMEGALY: Not seen. CALCIFICATIONS: Punctate calcified splenic granulomas and small calcified pelvic phleboliths noted. BONES AND SOFT TISSUES: No acute findings. RAD/Acute Abdomen Inc Chest IMPRESSION: Pulmonary emphysema with no acute abdominal findings. Electronically Signed: Son Leach MD at 0:27 EDT ,
[2022-01-25 17:47] LABS: Absolute Lymphocyte Count 1.47 X10^3/uL (0.83-4.51); Absolute Neutrophil Count 5.2 X10^3/uL (2.0-7.7); Basophil# 0.04 X10^3/uL; Basophil% 0.5 % (0-1); Eosinophil# 0.15 X10^3/uL; Hematocrit 46.6 % (37-47); Lymphocyte # 1.47 X10^3/ul (0.83-4.51); Lymphocyte % 19.9 % (19-41); Mean Corp Hgb Conc 32.2 g/dL (32-36); Mean Corpuscular Volume 93.2 fL (81-99); Mean Platelet Vol. 11.4 fl (6.2-12.0); Monocyte# 0.51 X10^3/uL; Monocyte% 6.9 % (0-10); NRBC Flagged by Analyzer 0 % (0-5); Neutrophil # 5.21 X10^3/uL (2.7-7.7); Neutrophil % 70.4 % (47-70); Platelet Count 253 K/mm3 (150-450); RBC Distribution Width CV 13.3 % (11.6-14.6); RBC Distribution Width SD 45.3 fl (35.1-43.9); White Blood Count 7.4 K/mm3 (4.4-11.0)
[2022-01-25 18:09] LABS: Erythrocyte Sedimentation Rate 11 mm/hr (0-30)
[2022-01-25 18:17] LABS: ALB/GLOB Ratio 1.1 RATIO (0.9-2.4); AST(SGOT) 15 U/L (15-37); Alanine Aminotransfer ALT/SGPT 23 U/L (13-56); Albumin, Serum 3.5 g/dL (3.2-5.0); Alkaline Phosphatase 105 U/L (45-117); Anion Gap 10 (5-15); BUN 18 mg/dL (7-18); BUN/Creat Ratio 17.6 RATIO (10-20); CRP < 2.90 mg/L (0.0-3.0); Calcium,Total 9.5 mg/dL (8.5-10.1); Chloride 107 mmol/L (98-107); Creatinine, Serum 1.02 mg/dL (0.55-1.02); EST Glomerular Filtration Rate 56 mL/min (>60); Est Glom Filt Rate - Afr Amer 68 mL/min (>60); Globulin 3.2 g/dL (2.2-4.2); Glucose 106 mg/dL (74-106); Lipase 113 U/L (73-393); Potassium 3.9 mmol/L (3.5-5.1); Protein, Total 6.7 g/dL (6.4-8.2); Sodium Level 144 mmol/L (136-145)
== END | disposition home or self-care (01) ==
PROVIDERS: PCP Family Medicine; Referring Provider Family Medicine; Visit Provider Family Medicine
DX: R10.31 Right lower quadrant pain (principal); R10.32 Left lower quadrant pain
CPT/HCPCS: 36415; 74022; 80053; 83690; 85025; 85652; 86140

== ENCOUNTER → 2022-01-26 | Outpatient (CLI) | payer MEDICARE, OTHER, SELFPAY ==
[2022-01-26 09:18] LABS: Mucous, Urine 0 SEEN /hpf (<or=2+); Red Blood Cells-Urine 0 SEEN /hpf (0-5); Squamous Epithelial Cells - UA 0 SEEN /hpf (5-10)
[2022-01-26 09:50] LABS: Color, Urine Yellow (Yellow); Glucose, Dipstick Normal (Normal); Ketone-Dipstick Negative (Negative); Leukocyte Esterase-Dipstick 500 /ul (Negative); Nitrite-Dipstick Negative (Negative); Occult Blood-Urine Negative /ul (Negative); Protein-Dipstick Negative (Negative); Urine Bilirubin Dipstick Negative (Negative); Urine Clarity Sl. Cloudy (Clear); Urine Urobilinogen Normal (Normal)
[2022-01-26 09:58] LABS: Bacteria 1+ /hpf (None Seen); White Blood Cells 25-50 SEEN /hpf (0-5)
== END | disposition home or self-care (01) ==
LOC: MTLAB 09:15
PROVIDERS: PCP Family Medicine; Referring Provider Family Medicine; Visit Provider Family Medicine
DX: R10.9 Unspecified abdominal pain (principal)
CPT/HCPCS: 81001; 87086; 87088

== ENCOUNTER → 2022-05-13 | Outpatient (CLI) | payer MEDICARE, OTHER, SELFPAY ==
[2022-05-13 17:49] LABS: Absolute Lymphocyte Count 1.65 X10^3/uL (0.83-4.51); Absolute Neutrophil Count 4.8 X10^3/uL (2.0-7.7); Basophil# 0.05 X10^3/uL; Basophil% 0.7 % (0-1); Eosinophil# 0.17 X10^3/uL; Eosinophils% 2.4 % (0-5); Hematocrit 45.9 % (37-47); Hemoglobin 15.1 g/dL (12.0-15.0); Lymphocyte # 1.65 X10^3/ul (0.83-4.51); Mean Corp Hgb Conc 32.9 g/dL (32-36); Mean Corpuscular Hgb 29.9 pg (27.0-32.0); Mean Corpuscular Volume 90.9 fL (81-99); Mean Platelet Vol. 11.2 fl (6.2-12.0); Monocyte# 0.45 X10^3/uL; Monocyte% 6.3 % (0-10); NRBC Flagged by Analyzer 0 % (0-5); Neutrophil # 4.84 X10^3/uL (2.7-7.7); Neutrophil % 67.5 % (47-70); Platelet Count 234 K/mm3 (150-450); RBC Distribution Width CV 12.9 % (11.6-14.6); RBC Distribution Width SD 42.5 fl (35.1-43.9); Red Blood Count 5.05 M/mm3 (4.2-5.4); White Blood Count 7.2 K/mm3 (4.4-11.0)
[2022-05-13 18:50] LABS: Vitamin B12 466 pg/mL (211-911)
[2022-05-13 19:54] LABS: Ferritin 175 ng/mL (8-252); Free T3 2.7 pg/mL (2.18-3.98); Iron 65 ug/dL (50-170); Iron Binding Capacity,Total 262 ug/dL (250-450); PERCENT IRON SATURATION 24.8 % (15.0-55.0); T4 Free Direct 1.22 ng/dL (0.76-1.46); T4 Total, Thyroxin 11.4 ug/dL (4.8-13.9); Thyroid Stim Hormone (TSH) 0.45 uIU/mL (0.358-3.74)
[2022-05-21 09:08] LABS: Testosterone, % Free 2.09 % (0.50-2.80); Testosterone, Total 5 ng/dL (3-67)
[2022-05-21 18:15] LABS: Zinc, Plasma or Serum 110 ug/dL (44-115)
== END | disposition home or self-care (01) ==
LOC: MTLAB 16:28
PROVIDERS: PCP Family Medicine; Referring Provider Dermatology; Visit Provider Dermatology
DX: L65.0 Telogen effluvium (principal)
CPT/HCPCS: 36415; 82607; 82627; 82652; 82728; 82746; 83540; 83550; 84134; 84402; 84403; 84436; 84439; 84443; 84481; 84630; 85025; 86038; 82626

== ENCOUNTER → 2022-06-01 | Outpatient (CLI) | payer MEDICARE, OTHER, SELFPAY ==
[2022-06-03 19:46] LABS: ANTINUCLEAR ANTIBODIES DIRECT Negative (Negative)
== END | disposition home or self-care (01) ==
LOC: MTLAB 14:48
PROVIDERS: PCP Family Medicine; Referring Provider Family Medicine; Visit Provider Family Medicine
DX: R76.8 Other specified abnormal immunological findings in serum (principal); E44.1 Mild protein-calorie malnutrition
CPT/HCPCS: 36415; 86038

== ENCOUNTER → 2022-06-02 | Outpatient (CLI) | payer MEDICARE, OTHER, SELFPAY ==
[2022-06-07 18:34] LABS: Pancreatic Elastase, Fecal 212 (>200)
== END | disposition home or self-care (01) ==
PROVIDERS: PCP Family Medicine; Referring Provider Family Medicine; Visit Provider Family Medicine
DX: R76.8 Other specified abnormal immunological findings in serum (principal); E44.1 Mild protein-calorie malnutrition
CPT/HCPCS: 82653

== ENCOUNTER → 2022-06-19 | Outpatient (CLI) | payer MEDICARE, OTHER, SELFPAY ==
--- NOTE | 2022-06-19 09:52 | CT_ITS ---
EXAM: CT CHEST, LUNG CANCER SCREENING WITHOUT INTRAVENOUS CONTRAST CLINICAL INDICATION: greater than 30 pack years quit 2016 TECHNIQUE: Helically acquired images were obtained of the chest without intravenous contrast using low dose (LDCT) lung cancer screening protocol. This CT exam was performed using one or more of the following dose reduction techniques: automated exposure control, adjustment of the mA and/or kV according to patient size, and/or use of iterative reconstruction technique. This report was created using [employer] report generation technology. COMPARISON: 06/29/2021 FINDINGS: LUNGS AND PLEURAL SPACES: There are emphysematous changes in both lungs. There is minimal scarring in the right upper lobe anteriorly which is stable. There is a pleural-based nodule in the right middle lobe that measures 6 mm. No pneumothorax. HEART: Unremarkable. Heart size is normal. No pericardial effusion. No significant coronary artery calcifications. MEDIASTINUM: Unremarkable. No mediastinal or hilar adenopathy. Esophagus is unremarkable. No hiatal hernia. THYROID: Unremarkable. No thyroid lesions. BONES/JOINTS: Unremarkable. No suspicious lytic or blastic abnormality. VASCULATURE: Unremarkable. Thoracic aorta is non-dilated. LYMPH NODES: Unremarkable. No enlarged lymph nodes. CT/Low Dose CT Lung Screening IMPRESSION: 1. Diffuse bilateral emphysematous changes. There is a 6 mm pleural-based nodule in the right middle lobe. There is stable scarring in the right upper lobe. 2. Lung-RADS score: 2 - Benign Appearance or Behavior. Recommend continued annual screening with low-dose CT (LDCT) in 12 months. Electronically Signed: Dick Mackenzie MD at 0:08 [facility] ,
== END | disposition home or self-care (01) ==
PROVIDERS: PCP Family Medicine; Referring Provider Nurse Practitioner Acute Care; Visit Provider Nurse Practitioner Acute Care
DX: Z87.891 Personal history of nicotine dependence (principal)
CPT/HCPCS: 71271

== ENCOUNTER → 2022-12-07 | Outpatient (CLI) | payer MEDICARE, OTHER, SELFPAY ==
[2022-12-07 17:56] LABS: Hematocrit 45.5 % (37-47); Mean Corpuscular Hgb 30.2 pg (27.0-32.0); Mean Corpuscular Volume 91.7 fL (81-99); Mean Platelet Vol. 11.7 fl (6.2-12.0); Platelet Count 234 K/mm3 (150-450); RBC Distribution Width CV 12.5 % (11.6-14.6); RBC Distribution Width SD 42.5 fl (35.1-43.9); Red Blood Count 4.96 M/mm3 (4.2-5.4); White Blood Count 6.8 K/mm3 (4.4-11.0)
[2022-12-07 18:33] LABS: Microalbumin,Random Urine 44.8 mg/L (NO RANGE EST.); Microalbumin:Creatinine Ratio 18.9 mg/g CRE (<30 mg/g CRE)
[2022-12-07 18:40] LABS: ALB/GLOB Ratio 1.2 RATIO (0.9-2.4); AST(SGOT) 17 U/L (15-37); Alanine Aminotransfer ALT/SGPT 19 U/L (13-56); Albumin, Serum 3.5 g/dL (3.2-5.0); Alkaline Phosphatase 121 U/L (45-117); Anion Gap 6 (5-15); BUN 18 mg/dL (7-18); BUN/Creat Ratio 17.6 RATIO (10-20); Calcium,Total 9.5 mg/dL (8.5-10.1); Chloride 109 mmol/L (98-107); Creatinine, Serum 1.02 mg/dL (0.55-1.02); EST Glomerular Filtration Rate 56 mL/min (>60); Est Glom Filt Rate - Afr Amer 68 mL/min (>60); Glucose 83 mg/dL (74-106); Potassium 4.2 mmol/L (3.5-5.1); Protein, Total 6.5 g/dL (6.4-8.2); Sodium Level 140 mmol/L (136-145); T4 Free Direct 1.27 ng/dL (0.76-1.46); Thyroid Stim Hormone (TSH) 0.43 uIU/mL (0.358-3.74)
== END | disposition home or self-care (01) ==
LOC: MFPLAB 14:29
PROVIDERS: PCP Family Medicine; Visit Provider Family Medicine
DX: N18.9 Chronic kidney disease, unspecified (principal); E03.9 Hypothyroidism, unspecified
CPT/HCPCS: 36415; 80053; 82043; 82570; 84439; 84443; 85027

== ENCOUNTER → 2023-01-12 | Outpatient (CLI) | payer MEDICARE, OTHER, SELFPAY ==
--- NOTE | 2023-01-12 10:01 | CDU_ITS ---
Reason For Study: TIA Rt. Velocities/BP Lt. Velocities/BP Prox CCA 75.1/25.6 cm/sec. Prox CCA 85.3/20.4 cm/sec. Mid CCA 67.6/17.6 cm/sec. Mid CCA 71.0/23.7 cm/sec. Dist CCA 90.3/26.1 cm/sec. Dist CCA 69.9/21.5 cm/sec. Prox ICA 72.4/21.4 cm/sec. Prox ICA 52.9/17.1 cm/sec. Mid ICA 60.1/17.6 cm/sec. Mid ICA 57.2/20.6 cm/sec. Dist ICA 52.4/26.0 cm/sec. Dist ICA 40.4/17.0 cm/sec. Rt. ICA/CCA = 1.1. Lt. ICA/CCA = 0.8. Prox ECA 96.0/23.4 cm/sec. Prox ECA 83.1/17.1 cm/sec. Rt. Vert. 37.4/14.7 cm/sec. Lt. Vert. 39.6/12.5 cm/sec. Right Extracranial There is homogeneous, smooth atherosclerotic plaque noted in the right common carotid artery. There is intimal thickening but no significant atherosclerotic plaque noted in the right internal carotid artery. There is heterogeneous, irregular atherosclerotic plaque noted in the right external carotid artery. Antegrade flow is noted in the right vertebral artery. Left Extracranial There is homogeneous, smooth atherosclerotic plaque noted in the left common carotid artery. There is heterogeneous, irregular atherosclerotic plaque noted in the left internal carotid artery. There is homogeneous, smooth atherosclerotic plaque noted in the left external carotid artery. Antegrade flow is noted in the left vertebral artery. Procedure Carotid Duplex [id number]. This is a Carotid Duplex examination using B-mode, color flow and specral Doppler. The exam was diagnostic. Exam performed in department. VL/Carotid Duplex Ultrasound Interpretation Summary No significant atherosclerotic plaque or stenosis noted in the right internal c arotid artery. Mild (<50%) stenosis left extracranial internal carotid. Flow within the vertebral a rteries is antegrade bilaterally. Ordering Physician: Ayush Medina Referring Physician: Ayush Medina Performed By: Hang Francisco RVT
== END | disposition home or self-care (01) ==
LOC: CVS 10:00
PROVIDERS: PCP Family Medicine; Referring Provider Family Medicine; Visit Provider Family Medicine
DX: H53.462 Homonymous bilateral field defects, left side (principal)
CPT/HCPCS: 93880

== ENCOUNTER → 2023-01-20 | Outpatient (CLI) | payer MEDICARE, OTHER, SELFPAY ==
--- NOTE | 2023-01-20 16:18 | MRI_ITS ---
EXAM: MR HEAD WITHOUT INTRAVENOUS CONTRAST CLINICAL INDICATION: transient vision loss, one hour on jan 13 2023, eval for TIA TECHNIQUE: Multiplanar and multisequence MR images of the brain were obtained without intravenous contrast. COMPARISON: No relevant prior studies available. FINDINGS: BRAIN AND EXTRA-AXIAL SPACES: Periventricular and subcortical T2 and T2 FLAIR hyperintense foci are nonspecific although most commonly due to chronic microvascular ischemic changes in a patient of this age. No intra- or extra-axial hemorrhage. No evidence of acute infarct. No intracranial mass or mass effect. There is preservation of the rayo/white matter interface. Posterior fossa structures are unremarkable. Ventricles are appropriate for age. No hydrocephalus. Basal cisterns are patent. SELLA: No significant abnormality. Normal sella turcica, pituitary gland, infundibular stalk, optic chiasm and hypothalamus. AUDITORY SYSTEM: No significant abnormality. The internal auditory canals are patent. BONES/JOINTS: No significant abnormality. No discrete lytic or blastic abnormalities. SINUSES: Normal as visualized. Clear. MASTOID AIR CELLS: Normal as visualized. Clear. ORBITS: Bilateral ocular lens extraction presumptively for the treatment of cataracts. Otherwise, no acute orbital pathology. VASCULATURE: Normal as visualized. Normal flow voids in the major intracranial circulation. MRI/Brain without Contrast IMPRESSION: Chronic microvascular ischemic changes. No evidence of acute infarct or other significant finding. Electronically Signed: Eitan Zuniga DO at 23:35 EDT ,
== END | disposition home or self-care (01) ==
LOC: MRI 16:14
PROVIDERS: PCP Family Medicine; Referring Provider Family Medicine; Visit Provider Family Medicine
DX: G45.9 Transient cerebral ischemic attack, unspecified (principal)
CPT/HCPCS: 70551

== ENCOUNTER → 2023-01-24 | Outpatient (CLI) | payer MEDICARE, OTHER, SELFPAY ==
--- NOTE | 2023-01-24 12:57 | ECHOD_ITS ---
Reason For Study: TRANSIENT CEREBRAL ISCHEMIC ATTACK Procedure This was a 2D Doppler, Color Flow transthoracic echocardiogram. Exam performed in department. Left Ventricle Normal LV size. Left ventricular systolic function is normal. The estimated ejection fraction is 65 %. Stage 2 diastolic dysfunction. No regional wall motion abnormalities noted. Right Ventricle Normal RV size. Normal systolic function. Atria Normal left atrium. Normal right atrium. Bubble contrast study negative for right to left interatrial shunt. Tricuspid Valve Normal tricuspid valve. Mild tricuspid valve insufficiency. Pulmonary artery systolic pressure is 28 mmHg. Aortic Valve Trisinus/trileaflet aortic valve. Mild focal aortic valve calcification. Peak aortic valve gradient 20 mmHg. Mean aortic valve gradient 10 mmHg. Pulmonic Valve Normal pulmonic valve. Great Vessels Normal aortic root. The pulmonary artery is normal size. Normal inferior vena cava. Pericardium/Pleural No pericardial effusion. Medication 22 gauge I.V. with prn adaptor inserted into right arm. Performed a rapid injection of agitated mix of 9 cc saline and 1cc air to assess for atrial septal defect. MMode/2D Measurements & Calculations LVIDd: 4.5 cm IVSd: 0.73 cm LVOT diam: 2.1 cm LVIDs: 2.9 cm LVPWd: 0.69 cm LVOT area: 3.5 cm2 RVDd: 3.1 cm FS: 36.0 % Ao root diam: 3.2 cm LAV(MOD-bp): 31.0 ml LVAd ap4: 20.2 cm2 LAV(MOD-bp) Indexed: 18.7 ml/m2 LVLd ap4: 6.5 cm LAV(MOD-sp2): 32.6 ml EDV(MOD-sp4): 50.1 ml LAV(MOD-sp4): 28.0 ml EDV(sp4-el): 53.2 ml LVAs ap4: 10.3 cm2 LVLs ap4: 5.8 cm ESV(MOD-sp4): 15.8 ml ESV(sp4-el): 15.8 ml EF(MOD-sp4): 68.5 % EF(sp4-el): 70.4 % SV(MOD-sp4): 34.3 ml SV(sp4-el): 37.5 ml LA A4 area: 12.2 cm2 LA dimension(2D): 2.9 cm RA A4 area: 14.4 cm2 TAPSE: 1.8 cm Time Measurements MV dec time: 0.20 sec Doppler Measurements & Calculations MV E max ernesto: 79.1 cm/sec Lat Peak E' Ernesto: 8.1 cm/sec Med Peak E' Ernesto: 6.3 cm/sec MV A max ernesto: 70.9 cm/sec E/E' lat: 9.8 E/E' med: 12.6 MV E/A: 1.1 MV V2 max: 110.2 cm/sec Ao V2 max: 223.2 cm/sec MV max P.9 mmHg MV dec slope: 451.3 cm/sec2 Ao max P.9 mmHg MV V2 mean: 67.1 cm/sec Ao V2 mean: 145.4 cm/sec MV mean P.0 mmHg Ao mean P.0 mmHg MV V2 VTI: 35.3 cm Ao V2 VTI: 49.8 cm AV (velocity ratio): 0.99 MVA(VTI): 4.9 cm2 CECILIA(I,D): 3.5 cm2 CECILIA(V,D): 3.1 cm2 LV V1 max: 197.8 cm/sec SV(LVOT): 173.1 ml PA V2 max: 97.1 cm/sec LV V1 max P.7 mmHg PA V2 mean: 70.8 cm/sec LV V1 mean P.7 mmHg LV V1 mean: 154.8 cm/sec LV V1 VTI: 49.5 cm TR max ernesto: 247.1 cm/sec TR max P.4 mmHg ECHO/Echo Complete Interpretation Summary Normal LV size. Left ventricular systolic function is normal. The estimated ejection fraction is 65 %. Stage 2 diastolic dysfunction. Bubble contrast study negative for right to left interatrial shunt. Pulmonary artery systolic pressure is 28 mmHg. Ordering Physician: Ayush Medina Referring Physician: Ayush Medina Performed By: Blessing Peterson RCS
== END | disposition home or self-care (01) ==
LOC: CVS 12:53
PROVIDERS: PCP Family Medicine; Referring Provider Family Medicine; Visit Provider Family Medicine
DX: R01.1 Cardiac murmur, unspecified (principal)
CPT/HCPCS: 93306

== ENCOUNTER → 2023-04-22 | Outpatient (CLI) | payer MEDICARE, OTHER, SELFPAY ==
[2023-04-22 16:19] LABS: Color, Urine Yellow (Yellow); Glucose, Dipstick Normal (Normal); Ketone-Dipstick Negative (Negative); Leukocyte Esterase-Dipstick 100 /ul (Negative); Nitrite-Dipstick Negative (Negative); Occult Blood-Urine Negative /ul (Negative); Protein-Dipstick 15 mg/dl (Negative); Specific Gravity, Urine 1.015 (1.002-1.030); Urine Bilirubin Dipstick Negative (Negative); Urine Clarity Clear (Clear); Urine Urobilinogen Normal (Normal)
== END | disposition home or self-care (01) ==
LOC: MTLAB 14:00
PROVIDERS: PCP Family Medicine; Referring Provider Family Medicine; Visit Provider Family Medicine
DX: R35.0 Frequency of micturition (principal)
CPT/HCPCS: 81002; 87077; 87086; 87088; 87186

== ENCOUNTER → 2023-05-02 | Outpatient (CLI) | payer MEDICARE, OTHER, SELFPAY ==
[2023-05-02 10:18] LABS: Bacteria 0 SEEN /hpf (None Seen); Mucous, Urine 0 SEEN /hpf (<or=2+)
[2023-05-02 12:17] LABS: Color, Urine Yellow (Yellow); Glucose, Dipstick Normal (Normal); Ketone-Dipstick Negative (Negative); Leukocyte Esterase-Dipstick 500 /ul (Negative); Nitrite-Dipstick Negative (Negative); Occult Blood-Urine 10 /ul (Negative); Protein-Dipstick Negative (Negative); Urine Bilirubin Dipstick Negative (Negative); Urine Clarity Sl. Cloudy (Clear); Urine Urobilinogen Normal (Normal)
[2023-05-02 12:25] LABS: Red Blood Cells-Urine 0-5 SEEN /hpf (0-5); Squamous Epithelial Cells - UA 0-5 SEEN /hpf (5-10); White Blood Cells 25-50 SEEN /hpf (0-5)
== END | disposition home or self-care (01) ==
LOC: MTLAB 10:17
PROVIDERS: PCP Family Medicine; Referring Provider Family Medicine; Visit Provider Family Medicine
DX: R35.0 Frequency of micturition (principal)
CPT/HCPCS: 81001; 87086; 87088

== ENCOUNTER 2023-06-13 12:46 | Inpatient (IN) | payer MEDICARE, OTHER, SELFPAY ==
[2023-06-13] VITALS (12 sets, daily range): BP systolic 108–159; BP diastolic 54–87; PULSE 70–101; RESP 14–18; TEMP 36.4–36.8; O2SAT 91–98; BMI 23.2; BMI 23.3
--- NOTE | 2023-06-13 13:28 | EX.ED.DYSGE1 ---
HPI <NADINE Acosta - Last Filed: 06/13/23 16:09> History of Present Illness Chief Complaint: Shortness of Breath Narrative Narrative: Patient is a 77-year-old female with past history of smoking tobacco, COPD, hypertension, hyperlipidemia, fibromyalgia who presents to the emergency department for feeling of shortness of breath, palpitations. Patient states that she has been sick for about 2 weeks, she did return home from [place] on June 04, 2023. Patient is currently on Bactrim DS for this sinus infection. Patient was running errands, felt her heart racing, and felt short of breath. This started approximately 9:30 AM. She called her PCP who referred her here. Patient denies any specific pain however states that her heart rate felt like it was going fast. [facility] <NADINE Acosta - Last Filed: 06/13/23 16:09> [facility] Medical History (Updated 06/13/23 @ 16:09 by NADINE Acosta) Acute bronchitis Acute pain of both ears Atypical chest pain Basal cell carcinoma (BCC) Bruises easily COPD (chronic obstructive pulmonary disease) Cough Dyspnea on exertion Fatigue Fibromyalgia GERD (gastroesophageal reflux disease) Hearing loss Hemangioma Hoarseness Hyperlipidemia Hypothyroidism IBS (irritable bowel syndrome) Itching Keratosis Kidney stone Lentigo Migraines mohs procedure Oral thrush Other specified disorder of gallbladder Pernicious anemia PND (post-nasal drip) Pulmonary nodule rib removal Squamous cell carcinoma Tobacco dependence in remission Home Medications atorvastatin 10 mg tablet 10 mg PO DAILY 08/08/14 [History Last Taken 06/12/23] biotin 10,000 mcg capsule 5,000 mcg PO DAILY 08/08/14 [History Last Taken Unknown] folic acid 1 mg tablet 1 mg PO DAILY 08/08/14 [History Last Taken 06/12/23] polyethylene glycol 3350 17 gram/dose oral powder 17 g PO DAILY 08/08/14 [History Last Taken 06/12/23] umeclidinium 62.5 mcg/actuation blister powder for inhalation (Incruse Ellipta) 1 inh inhalation Q24H COPD J44.9 #3 device 09/23/22 [Rx Last Taken 06/13/23] albuterol sulfate 90 mcg/actuation aerosol inhaler (Ventolin HFA) 2 puff inhalation Q6H PRN shortness of breath or wheezing #1 device 10/26/22 [Rx Last Taken Unknown] aspirin 81 mg tablet,delayed release 81 mg PO DAILY 04/14/23 [History Last Taken 06/12/23] levothyroxine 50 mcg tablet 75 mcg PO DAILY 04/14/23 [History Last Taken 06/13/23] cyanocobalamin (vitamin B-12) 1,000 mcg/mL injection solution (Dodex) 1,000 mcg IM QMONTH 06/13/23 [History Last Taken 05/16/23] glycerin-mineral oil-polycarbophil vaginal gel (Feminine Moisturizer and Lubricating(glyc-mnOil) vaginal gel) 1 ea vaginal .COMPLEX 06/13/23 [History Last Taken 06/12/23] minoxidil 5 % topical foam (Daylogic Minoxidil) 1 ea topical DAILY 06/13/23 [History Last Taken 06/12/23] levofloxacin 750 mg tablet 750 mg PO Q48 3 days #3 tabs 06/15/23 [Rx Last Taken Unknown] pantoprazole 40 mg tablet,delayed release 40 mg PO DAILY 30 days #30 tabs 06/15/23 [Rx Last Taken Unknown] prednisone 20 mg tablet 40 mg (2 x 20 mg) PO DAILY@0800 5 days #10 tabs 06/15/23 [Rx Last Taken Unknown] Allergy/AdvReac Type Severity Reaction Status Date / Time metaxalone [From Skelaxin] Allergy Severe palpitations, Verified 06/13/23 12:49 tachycardia and itching adhesive Allergy NEEDS Verified 06/13/23 12:49 FOLLOW-UP amoxicillin trihydrate Allergy Unknown Verified 06/13/23 12:49 [From Augmentin] bacitracin [From Polysporin] Allergy Unknown Verified 06/13/23 12:49 polymyxin B sulfate Allergy Unknown Verified 06/13/23 12:49 [From Polysporin] potassium clavulanate Allergy Unknown Verified 06/13/23 12:49 [From Augmentin] propoxyphene napsylate AdvReac Nausea/Vom/ Verified 06/13/23 12:49 [From Darvocet-N 100] Diarrhea Family History (Updated 04/14/23 @ 13:32 by Marilu Duffy) Brother Cancer CAD (coronary artery disease) Heart disease Thyroid disorder Hypertension Father Myocardial infarction Heart disease Hypertension Seizures Sister Heart disease Hypertension Thyroid disorder Surgical History H/O cataract removal with insertion of prosthetic lens H/O foot surgery H/O lithotripsy History of appendectomy History of hysterectomy History of vitrectomy Hx laparoscopic cholecystectomy S/P Mohs surgery for basal cell carcinoma S/P tonsillectomy and adenoidectomy Social History Smoking Status: Former smoker second hand exposure: Yes alcohol intake: never substance use type: does not use ROS <NADINE Acosta - Last Filed: 06/13/23 16:09> ROS ED ROS Narrative Constitutional: Negative for fever, chills, weight loss, weakness Eyes: Negative for vision loss, vision change, double vision ENT: Negative for any sore throat, ear pain, congestion Cardiovascular: Negative for any chest pain, tightness. Positive palpitations Respiratory: Negative for any cough, sputum production, hemoptysis, orthopnea. Positive for dyspnea, dyspnea on exertion Gastrointestinal: Negative for any abdominal pain, nausea, vomiting, diarrhea, constipation, blood in stool, blood in vomit : Negative for any urinary frequency, dysuria, retention, blood in urine Muscle skeletal: Negative for any myalgias, arthralgias, neck pain, back pain Neurological: Negative for any headache, syncope, paresthesias, dizziness Skin: Negative for any rashes, lumps, itching, abrasions, lacerations Psychiatric: Negative for any depression, anxiety, stress, suicidal ideation, homicidal ideation Hematologic: Negative for any easy bruising, excessive bruising, easy bleeding Allergies: Negative for any eczema, hives, rash EXAM <NADINE Acosta - Last Filed: 06/13/23 16:09> Physical Exam Narrative Exam Narrative: Vital signs reviewed. Patient appears slightly anxious however no distress. HEET: Head normocephalic atraumatic, TMs clear bilaterally. Posterior pharynx is clear, moist mucous membranes. Nares clear bilaterally. Neck: Supple with no lymphadenopathy or tenderness. No signs of meningismus. Cardiac: Regular rate and rhythm no murmurs gallops or rubs, equal peripheral pulses bilaterally. Respiratory: Lungs clear to auscultation bilaterally. No chest tenderness. Abdomen: Soft, nontender, nondistended. No abdominal bruit or pulsatile masses. No hepatosplenomegaly Extremities: No peripheral edema, no signs of gross trauma or deformity. Active full range of motion of all extremities. Neuro: Cranial nerves II through XII intact, no focal neurological deficits. Skin: Clean dry and intact with no rash, purpura, petechiae, vesicles or pustules. Backs/flank: No CVA tenderness, no midline spinal tenderness, no deformity. Psych: Normal mood and affect. No SI, HI or acute psychosis. Const Vital Signs: 06/13/23 12:47 06/13/23 13:10 06/13/23 13:32 Temperature 98.2 F Temperature Source Temporal Pulse Rate 101 H Respiratory Rate 16 Respiratory Effort Normal Non-Labored Respiratory Depth Normal Respiratory Pattern Normal Blood Pressure 159/87 H Blood Pressure Mean 111 Pulse Ox 98 Oxygen Delivery Method Room Air Room Air Room Air 06/13/23 14:00 06/13/23 15:00 Temperature Temperature Source Pulse Rate 74 70 Respiratory Rate 15 17 Respiratory Effort Respiratory Depth Respiratory Pattern Blood Pressure 117/70 108/60 Blood Pressure Mean 85 76 Pulse Ox 93 93 Oxygen Delivery Method <Dr. Harsh Sauer DO - Last Filed: 06/15/23 23:13> Physical Exam Const Vital Signs: 06/13/23 12:47 06/13/23 13:10 06/13/23 13:32 Temperature 98.2 F Temperature Source Temporal Pulse Rate 101 H Respiratory Rate 16 Respiratory Effort Normal Non-Labored Respiratory Depth Normal Respiratory Pattern Normal Blood Pressure 159/87 H Blood Pressure Mean 111 Pulse Ox 98 Oxygen Delivery Method Room Air Room Air Room Air 06/13/23 14:00 06/13/23 15:00 Temperature Temperature Source Pulse Rate 74 70 Respiratory Rate 15 17 Respiratory Effort Respiratory Depth Respiratory Pattern Blood Pressure 117/70 108/60 Blood Pressure Mean 85 76 Pulse Ox 93 93 Oxygen Delivery Method [facility] <NADINE Acosta - Last Filed: 06/13/23 16:09> [facility] Lab Data Labs: Laboratory Results - last 24 hr 06/13/23 13:40 WBC 7.7 RBC 4.78 Hgb 13.7 Hct 43.0 MCV 90.0 MCH 28.7 MCHC 31.9 L RDW Std Deviation 43.2 RDW Coeff of Gildardo 13.0 Plt Count 325 MPV 10.2 Immature Gran % (Auto) 0.300 Neut % (Auto) 81.3 H Lymph % (Auto) 11.5 L [place] % (Auto) 5.6 Eos % (Auto) 0.8 Baso % (Auto) 0.5 Absolute Neuts (auto) 6.2 Absolute Lymphs (auto) 0.88 Nucleated RBC % 0 D-Dimer Quant (PE/DVT) 0.53 H* Sodium 135 L Potassium 4.1 Chloride 102 Carbon Dioxide 25.0 Anion Gap 8 BUN 17 Creatinine 1.28 H Estim Creat Clear Calc 31.78 Est GFR (MDRD) Af Amer 52 L Est GFR (MDRD) Non-Af 43 L BUN/Creatinine Ratio 13.3 Glucose 115 H Calcium 9.8 Troponin I High Sens 11 B-Natriuretic Peptide 48.9 Radiography Diagnostic Testing: Clinical Impression(s) from Imaging Studies Chest X-Ray 06/13/23 14:08 IMPRESSION: Hyperinflation. COPD. Stable examination. Electronically Signed: Audie Ramires MD at 14:33 EST , Chest CTA 06/13/23 15:10 IMPRESSION: No evidence of pulmonary embolism. Hyperinflation and diffuse emphysematous changes with bullous formation more prominent in the upper lobes. Electronically Signed: Audie Ramires MD at 15:46 EST , EKG sinus rhythm with PVCs: Attestation: I personally reviewed and interpreted this EKG as follows: Comments: Sinus rhythm with occasional PVCs, 75 bpm, no acute ST elevation, DE interval was 130 ms, QRS interval 78 ms, no acute ST elevation, no acute infarct noted. Treatment and Re-Evaluation :: Patient appears generally well, patient appears nontoxic, vital signs are stable. Patient presents to the emergency department with complaints of shortness of breath, palpitations while she was running errands today. Differential diagnoses include pulmonary embolism, patient did recently return from [place]. Patient's also complaining of cough, congestion is been ongoing for 2 weeks, this could be secondary to a viral infection, community-acquired pneumonia. Patient will receive basic laboratory values looking for any ACS or MN. CBC, chemistries will be completed. Patient receive a D-dimer as well as a proBNP. Patient's CBC was unremarkable, D-dimer was elevated 0.53 however when age-adjusted this is negative. Patient's chemistries show a creatinine of 1.28 which is slightly elevated, GFR 43, glucose 115. Patient's troponin was negative, BNP was negative at 48.9. Patient's respiratory panel such as COVID-19 influenza RSV was negative. Patient's chest x-ray shows hyperinflation, COPD, stable examination. This was interpreted the ER physician. I did have the patient ambulate with pulse oxygenation, she dropped to 85% and felt short of breath. Secondary to this finding, I do believe the patient will need admitted to the hospital for further workup, patient will also receive a CTA of the chest concerning for any pleural effusion, pulmonary embolus. patient's CT scan of the chest shows no evidence of pulmonary embolism. Hyperinflation diffuse emphysematous changes with bullous formation more prominent in the upper lobes. At this time, patient will need to be admitted to hospital for dyspnea, hypoxia. I spoke with hospitalist who is in agreement. Patient be PCU full. Attending note: Patient seen and evaluated with inbound sales representative. I perform my own [id number] evaluation. I agree with the plan of work-up. Exam palpitations dyspnea. Recent travel to [place]. No history of PE. COPD history. Currently being treated for sinus infection on Bactrim. Exam alert nontoxic heart was regular lungs are clear. EKG sinus rhythm with no acute findings. Patient workup with labs, D-dimer obtained for further evaluation due to low risk Wells criteria. D-dimer negative age adjusted. Pulse ox stable. Plan on ambulation with pulse ox prior to disposition plans. <Dr. Harsh Sauer, DO - Last Filed: 06/15/23 23:13> [facility] Lab Data Attestation: I reviewed the patient's lab results. Labs: Laboratory Results - last 24 hr 06/13/23 13:40 WBC 7.7 RBC 4.78 Hgb 13.7 Hct 43.0 MCV 90.0 MCH 28.7 MCHC 31.9 L RDW Std Deviation 43.2 RDW Coeff of Gildardo 13.0 Plt Count 325 MPV 10.2 Immature Gran % (Auto) 0.300 Neut % (Auto) 81.3 H Lymph % (Auto) 11.5 L [place] % (Auto) 5.6 Eos % (Auto) 0.8 Baso % (Auto) 0.5 Absolute Neuts (auto) 6.2 Absolute Lymphs (auto) 0.88 Nucleated RBC % 0 D-Dimer Quant (PE/DVT) 0.53 H* Sodium 135 L Potassium 4.1 Chloride 102 Carbon Dioxide 25.0 Anion Gap 8 BUN 17 Creatinine 1.28 H Estim Creat Clear Calc 31.78 Est GFR (MDRD) Af Amer 52 L Est GFR (MDRD) Non-Af 43 L BUN/Creatinine Ratio 13.3 Glucose 115 H Calcium 9.8 Troponin I High Sens 11 B-Natriuretic Peptide 48.9 Radiography Diagnostic Testing: Clinical Impression(s) from Imaging Studies Chest X-Ray 06/13/23 14:08 IMPRESSION: Hyperinflation. COPD. Stable examination. Electronically Signed: Audie Ramires MD at 14:33 EST , Chest CTA 06/13/23 15:10 IMPRESSION: No evidence of pulmonary embolism. Hyperinflation and diffuse emphysematous changes with bullous formation more prominent in the upper lobes. Electronically Signed: Audie Ramires MD at 15:46 EST , Treatment and Re-Evaluation :: Patient appears generally well, patient appears nontoxic, vital signs are stable. Patient presents to the emergency department with complaints of shortness of breath, palpitations while she was running errands today. Differential diagnoses include pulmonary embolism, patient did recently return from [place]. Patient's also complaining of cough, congestion is been ongoing for 2 weeks, this could be secondary to a viral infection, community-acquired pneumonia. Patient will receive basic laboratory values looking for any ACS or MN. CBC, chemistries will be completed. Patient receive a D-dimer as well as a proBNP. Patient's CBC was unremarkable, D-dimer was elevated 0.53 however when age-adjusted this is negative. Patient's chemistries show a creatinine of 1.28 which is slightly elevated, GFR 43, glucose 115. Patient's troponin was negative, BNP was negative at 48.9. Patient's respiratory panel such as COVID-19 influenza RSV was negative. Patient's chest x-ray shows hyperinflation, COPD, stable examination. This was interpreted the ER physician. I did have the patient ambulate with pulse oxygenation, she dropped to 85% and felt short of breath. Secondary to this finding, I do believe the patient will need admitted to the hospital for further workup, patient will also receive a CTA of the chest concerning for any pleural effusion, pulmonary embolus. patient's CT scan of the chest shows no evidence of pulmonary embolism. Hyperinflation diffuse emphysematous changes with bullous formation more prominent in the upper lobes. At this time, patient will need to be admitted to hospital for dyspnea, hypoxia. I spoke with hospitalist who is in agreement. Patient be PCU full. Attending note: Patient seen and evaluated with inbound sales representative. I perform my own [id number] evaluation. I agree with the plan of work-up. Exam palpitations dyspnea. Recent travel to [place]. No history of PE. COPD history. Currently being treated for sinus infection on Bactrim. Exam alert nontoxic heart was regular lungs are clear. EKG sinus rhythm with no acute findings. Patient workup with labs, D-dimer obtained for further evaluation due to low risk Wells criteria. D-dimer negative age adjusted. Pulse ox stable. Plan on ambulation with pulse ox prior to disposition plans. CT chest negative for PE or effusions or infiltrates. Patient ambulated became hypoxic. Patient admitted to hospitalist service. Discharge Plan Dx/Rx/DC Orders Clinical Impression: History of COPD, Dyspnea on exertion, Acute dyspnea, Hypoxia Disposition Disposition: Acute Care Hospital [facility] Discharge Date/Time: 06/13/23 17:31
[2023-06-13] MEDS: 0.9% Normal Saline (1000mL) 1,000 ML 999 ML IV (13:44)
[2023-06-13 13:56] LABS: Absolute Lymphocyte Count 0.88 X10^3/uL (0.83-4.51); Absolute Neutrophil Count 6.2 X10^3/uL (2.0-7.7); Basophil# 0.04 X10^3/uL; Basophil% 0.5 % (0-1); Eosinophil# 0.06 X10^3/uL; Eosinophils% 0.8 % (0-5); Hemoglobin 13.7 g/dL (12.0-15.0); Lymphocyte # 0.88 X10^3/ul (0.83-4.51); Lymphocyte % 11.5 % (19-41); Mean Corp Hgb Conc 31.9 g/dL (32-36); Mean Corpuscular Hgb 28.7 pg (27.0-32.0); Mean Platelet Vol. 10.2 fl (6.2-12.0); Monocyte# 0.43 X10^3/uL; Monocyte% 5.6 % (0-10); NRBC Flagged by Analyzer 0 % (0-5); Neutrophil # 6.24 X10^3/uL (2.7-7.7); Neutrophil % 81.3 % (47-70); Platelet Count 325 K/mm3 (150-450); RBC Distribution Width SD 43.2 fl (35.1-43.9); Red Blood Count 4.78 M/mm3 (4.2-5.4); White Blood Count 7.7 K/mm3 (4.4-11.0)
--- NOTE | 2023-06-13 14:08 | RAD_ITS ---
STUDY: X-RAY CHEST REASON FOR EXAM: Female, 77 years old. Tachycardia. Shortness of breath and cough. TECHNIQUE: PA and lateral views of the chest. COMPARISON: Comparison is made with prior study dated January 25, 2022. FINDINGS: EKG electrodes are seen. There is hyperinflation of the lungs consistent with chronic obstructive lung disease (COPD). There is no demonstrated pleural abnormality. Normal size heart. Normal mediastinum and suki. Normal visualized pulmonary arteries. There is atherosclerotic calcification of the aortic arch with tortuosity. Normal visualized thoracic spine. Normal visualized ribs, clavicles, and shoulders. There is no demonstrated abnormality of the visualized soft tissue structures of the upper abdomen. RAD/Chest PA and Lateral IMPRESSION: Hyperinflation. COPD. Stable examination. Electronically Signed: Audie Ramires MD at 14:33 EST ,
[2023-06-13 14:13] LABS: Anion Gap 8 (5-15); BUN 17 mg/dL (7-18); BUN/Creat Ratio 13.3 RATIO (10-20); Calcium,Total 9.8 mg/dL (8.5-10.1); Chloride 102 mmol/L (98-107); Creatinine, Serum 1.28 mg/dL (0.55-1.02); EST Glomerular Filtration Rate 43 mL/min (>60); Est Glom Filt Rate - Afr Amer 52 mL/min (>60); Estimated Creatinine Clearance 31.78 ml/min; Glucose 115 mg/dL (74-106); Potassium 4.1 mmol/L (3.5-5.1); Sodium Level 135 mmol/L (136-145); Troponin-I HS 11 pg/mL (3.0-54.0)
[2023-06-13 14:15] LABS: BNP,B-Type NATRIURETIC PEPTIDE 48.9 pg/mL (0-100)
[2023-06-13 14:17] LABS: D-Dimer Quantitative (DVT/PE) 0.53 FEU/ug/m (0.27-0.49)
[2023-06-13] MEDS: Ondansetron ODT 4 MG Tablet PO (15:02)
--- NOTE | 2023-06-13 15:10 | CT_ITS ---
STUDY: CTA CHEST REASON FOR EXAM: Female, 77 years old. Shortness of breath RADIATION DOSAGE (If Supplied By Facility): CTDIvol = ( 5.56 ) mGy, DLP = ( 197.31 ) mGycm TECHNIQUE: The examination was performed with the intravenous administration of IV 100mL [id number]-[id number]. Post-processing of the angiographic images was performed, with multiplanar reformation and 3D reconstruction. Individualized dose optimization techniques were used for this CT. COMPARISON: None. FINDINGS: Normal enhancement of the main pulmonary artery and right and left pulmonary arteries. Normal enhancement of the bilateral peripheral pulmonary arteries. There is no demonstrated pulmonary embolism. Normal thoracic aorta and visualized great vessels. There is no demonstrated aortic dissection. There are calcifications of the coronary arteries. Normal mediastinum. Normal hilar regions. Normal visualized trachea and bronchi. The lungs are hyper expanded, with flattening of the hemidiaphragms. Diffuse emphysematous changes with bullous formation more prominent in the upper lobes. No suspicious nodules are seen. Normal pleura. Normal chest wall structures. There are degenerative changes of thoracic spine. Increased kyphosis. There are calcified splenic granulomas. CT/CTA Chest W/WO Contrast IMPRESSION: No evidence of pulmonary embolism. Hyperinflation and diffuse emphysematous changes with bullous formation more prominent in the upper lobes. Electronically Signed: Audie Ramires MD at 15:46 EST ,
--- OUTSIDE RECORDS SUMMARY | 2023-06-13 16:34 | XMS RPT_ITS | CCD ---
Author Name Unknown Address [facility] [address] [place] [address] Organization [facility] Results Test Name Value Interpretation Reference Range Facil ity Progress note 03-17-2021 Note Date & Type Note Facility 03-17-2021 Note HNO ID: [id number] Author: Praneeth Ceron APRN.NURSE TRANSPLANT Service: ? Author Type: Nurse Practitioner Type: Progress Notes Filed: 03/17/2021 5:47 PM Note Text: Handy Vega is a 75 year old female. Patient presents with: Follow Up Established Patient Handy is a left handed female that presents to office for follow up on peripheral neuropathy and familial tremor. She last saw Dr. Hdez in 2019. She has a history of MGUS and was followed Dr. Lance. 1) Neuropathy - Bilateral feet and midshins - Bilateral hands She states that the neuropathy has gotten worse since her last visit with Dr. Hdez 2018. She states it is typically not painful. It does become painful when she stands for too long or walks long distances. She currently controls her neuropathy with lifestyle. She has tried multiple medications with side effects and is content with controlling her neuropathy with lifestyle. 2) Familial Tremor: She states that the tremor has gotten worse since she last saw Dr. Hdez in 2019. The tremor started in her left hand and is now in the right hand. It is worse in the left hand. She notices the tremor in both a resting postion as well as in action. She controls her tremor by lifestyle. She does not feel the need for medication. OARRS reviewed KP data reviewed if done COMPASS 31 reviewed as 31 point autonomic review of systems questions THIS NOTE IS FOR AT FIRST FOR MY DOCUMENTATION TO PROVIDE CARE, HELP INSURANCE COMPANY AND COLLEAGUES TO HAVE NEUROLOGICAL CONTEXT OF MY , AND FOR MY PERSONAL RECORDING TO FACILITATE FUTURE CARE BY HAVING A WRITTEN DOCUMENT MEMORY OF OUR CONSULT TOGETHER . THANK YOU FOR UNDERSTANDING THIS OFFICE NOTE IS A PHYSICIAN BASED DOCUMENT FOR COMMUNICATION AND CARE. She is brought in today by her patient. Medications Reviewed levothyroxine (SYNTHROID) 75 mcg tablet Take 75 mcg by mouth once daily. biotin 5 mg caspule Take 5,000 mcg by mouth once daily. INCRUSE ELLIPTA 62.5 mcg/actuation inhaler Inhale 1 Puff as instructed once daily. magnesium oxide (MAG-OX) 400 mg (241.3 mg magnesium) tablet Take 400 mg by mouth once daily. EASIVENT 1 Device one time only. cholecalciferol (VITAMIN D3) 50 mcg (2,000 unit) tablet Take 2,000 Units by mouth once daily. celecoxib (CELEBREX) 100 mg capsule Take 100 mg by mouth twice daily. polyethylene glycol 3350 (MIRALAX, GLYCOLAX) 17 gram/dose powder Take 17 g by mouth as needed. famotidine (PEPCID AC ORAL) Take 20 mg by mouth as needed. dicyclomine (BENTYL) 10 mg capsule Take 10 mg by mouth before meals and at bedtime. Minoxidil 5 % soln Apply 1 application to affected area once daily. albuterol HFA (PROVENTIL HFA) 90 mcg/actuation inhaler Inhale 2 Puffs as instructed four times daily as needed for Wheezing/Shortness of Breath. folic acid 1 mg tablet Take 1 tablet by mouth once daily. CYANOCOBALAMIN 1,000 MCG/ML INJECTION Inject 1,000 mcg intramuscularly one time only. LIPITOR 10MG TABLET Take 10 mg by mouth once daily. Allergies Reviewed PAST MEDICAL HISTORY: ACTIVE PROBLEM LIST Unspecified Constipation Personal History of Other Malignant Neoplasm of Skin Abdominal Pain, Other Specified Site Fibromyalgia Tingling B12 Deficiency Hypothyroid Peripheral Neuropathy Head Pain Migraine Loss of Smell Hyperglycemia Alopecia PAST SURGICAL HISTORY Procedure Laterality Date - CATARACT EXTRACTION HX right eye - CHOLECYSTECTOMY 07/2014 - COLONOSCOP W/ OR W/O [facility] SPEC 01/31/2013 Colonoscopy - PAST SURGICAL HISTORY OF hyster - PAST SURGICAL HISTORY OF appendectomy - PAST SURGICAL HISTORY OF tubal - PAST SURGICAL HISTORY OF tonsils - PAST SURGICAL HISTORY OF 2000 Moh's procedure Social History Tobacco Use - Smoking status: Former Smoker Packs/day: 1.00 Years: 50.00 Pack years: 50.00 Types: Cigarettes Start date: 1965 Quit date: 05/19/2015 Years since quittin.8 - Smokeless tobacco: Never Used Substance Use Topics - Alcohol use: No - Drug use: Never family history includes Coronary Artery Disease in her father; Prostate Cancer in her brother; Senile Dementia in her mother; hemiplegic migraines in her son; syringomyelia in her father; tremors in her father. GENERAL:No weight loss, malaise or fevers., SEE HPI HEENT:Negative for frequent or significant headaches, No changes in hearing or vision, no nose bleeds or other nasal problems NECK:Negative for lumps, goiter, pain and significant neck swelling RESPIRATORY: Negative for cough, wheezing or shortness of breath. CARDIOVASCULAR: Negative for chest pain, leg swelling or palpitations. GASTROINTESTINAL: Negative for abdominal discomfort, blood in stools or black stools or change in bowel habits GENITOURINARY: No history of dysuria, frequency or incontinence MUSKULOSKELETAL: Negative for joint pain or swelling, back pain or muscle pain. NEUROLOGIC:See HPI SKIN:Negative for lesions, rash, and (more content not included)... [facility] Clinical Note 07-08-2020 Note Date & Type Note Facility 07-08-2020 Note Patient Outreach ([facility]) HANDY VEGA ([id number]) 1945 F YBB Date Time Provider Department 07/08/20 SE[facility] ESTES During your visit today, we recorded the following information about you: Allergies As of Date: 07/08/2020 Noted Allergy Reaction ADHESIVE TAPE (ROSINS) 02/21/2004 AUGMENTIN (AMOXICILLIN-POT CLAVUL*10/17/2009 11 - Vomiting HYDROCODONE-ACETAMINOPHEN 10/06/2016 8 - GI Upset Comments: Severe vomitting POLYSPORIN (BACITRACIN-POLYMYXIN *11/06/2009 7 - Swelling PROPOXYPHENE 02/21/2004 11 - Vomiting SKELAXIN (METAXALONE) 11/25/2015 9 - Itching Comments: Rapid heartbeat Date Reviewed: 10/18/2018 Reviewed by: Ravindra Hdez - Fully Assessed Order(s):SARS-COVID VACCINE 1ST DOSE APPT [[id number]] Order #: [id number] FUTURE Prescriptions as of 07/08/2020 Sig: PEPCID AC ORAL Take by mouth. DICLOFENAC SODIUM 75 MG TABLE* Take 1 tablet by mouth three * METHOCARBAMOL 500 MG TABLET Take 1 tablet by mouth three * MAG-OXIDE ORAL Take 400 mg by mouth as direc* CHOLECALCIFEROL (VITAMIN D3) * Take by mouth once daily. ALBUTEROL SULFATE HFA 90 MCG/* Inhale 2 Puffs as instructed * DICYCLOMINE 10 MG CAPSULE Take 10 mg by mouth before me* FLUTICASONE FUROATE 100 MCG-V* Inhale 1 Inhalation as instru* ERYTHROMYCIN 5 MG/GRAM (0.5 %* Use 1 application in the righ* MINOXIDIL 5 % TOPICAL SOLUTION Apply to affected area once * ALBUTEROL SULFATE HFA 90 MCG/* Inhale 2 Puffs as instructed * BIOTIN 2,500 MCG TABLET Take 5,000 mcg by mouth once * * FOLIC ACID 1 MG TABLET Take 1 tablet by mouth once d* * CONJUGATED ESTROGENS 0.625 MG* To be used vaginally 2 times * * LEVOTHYROXINE 50 MCG TABLET Take 1 tablet by mouth once d* * CYANOCOBALAMIN (VIT B-12) 1,0* once monthly * MIRALAX 17 GRAM/DOSE ORAL POW* takes 17gm once a day with 8 * * ASPIRIN 81 MG TABLET take one tablet daily * LIPITOR 10 MG TABLET take one tablet daily Problem List As Of Date 07/08/2020 Noted Resolved CONSTIPATION NOS [K59.00] 07/02/2005 PERS HX SKIN MALIGNANCY NEC [Z85.828] 05/12/2006 Abdominal Pain, Other Specified Site [R10.9] Fibromyalgia [M79.7] Tingling [R20.2] 02/11/2012 B12 deficiency [E53.8] 02/11/2012 Hypothyroid [E03.9] 02/11/2012 Peripheral neuropathy [G62.9] 02/11/2012 Head pain [R51.9] 02/11/2012 Migraine [G43.909] 02/11/2012 Loss of smell [R43.0] 02/11/2012 Hyperglycemia [R73.9] 02/11/2012 Alopecia [L65.9] 08/28/2014 Encounter Status:Closed by JIGAR ARMSTRONG on 07/11/20 [facility] Summary Purpose Family History No Family History Records FoundNo Family History Records Found Advance Directives No Advanced Directives Records FoundNo Advanced Directives Records Found Additional Source Comments INFORMATION SOURCE (unrecogn ized section and content) DATE CREATED AUTHOR AUTHOR'S ORGANIZ ATION 06/12/2021 [facility] FOR RECORDS PERTAINING TO PATIENTS WHO ARE OR HAVE BEEN ENROLLED IN A CHEMICAL DEPENDENCY/SUBSTANCEABUSE PROGRAM, SOME INFORMATION MAY BE OMITTED. This clinical summary was aggregated from multiple sources. Caution should be exercised in using it in the provision of clinical care. This summary normalizes information from multiple sources, and as a consequence, information in this document may materially change the coding, format and clinical context of patient data. In addition, data may be omitted in some cases. CLINICAL DECISIONS SHOULD BE BASED ON THE PRIMARY CLINICAL RECORDS. [facility]. provides no warranty or guarantee of the accuracy or completeness of information in this document.
--- NOTE | 2023-06-13 16:52 | PCM.HP.STD ---
HPI - General General Date of Admission: 06/13/23 Date of Service: 06/13/23 Chief Complaint: SOB and palpitations HPI Narrative HANDY VEGA, is a 77F with past history of smoking tobacco, COPD, hypertension, hypothyroidism, hyperlipidemia, fibromyalgia who presents to the emergency department for feeling of shortness of breath, palpitations. She has been sick for about 2 weeks and returned home from [place] on June 04. Is currently on Bactrim for sinus infection. Today was running errands and felt her heart was racing that she was short of breath and she called her PCP who sent her to the ED. in the ED workup unrevealing for acute etiology however when patient ambulated O2 sats dropped to 85% and hospitalist contacted for admission. Patient evaluated at bedside and reports she chronically has problems with shortness of breath on exertion that is managed with a daily inhaler and as needed albuterol before working out but today that she noted shortness of breath when she was running errands and her heart racing which was out of the ordinary for her, has been on Bactrim since 06/07 after she had a runny nose and nasal congestion and then developed throat soreness and was having green nasal discharge, symptoms have been improving with Bactrim but she reports she has been having some burning in her stomach and nausea for the past 4 days and some loose stool since the start of this as well. Additionally has chronic tremor that has been worsened recently but will be seeing neurology for this in August. She reports many stressors in the past year with her and multiple other family members dying is very concerned about her health and what could be going on at this time. Patient has not felt her heart racing since being in the ED and breathing feeling better just sitting there but discussed her hypoxia and patient agreeable to admission. [facility] Medical History (Updated 06/13/23 @ 16:09 by NADINE Acosta) Acute bronchitis Acute pain of both ears Atypical chest pain Basal cell carcinoma (BCC) Bruises easily COPD (chronic obstructive pulmonary disease) Cough Dyspnea on exertion Fatigue Fibromyalgia GERD (gastroesophageal reflux disease) Hearing loss Hemangioma Hoarseness Hyperlipidemia Hypothyroidism IBS (irritable bowel syndrome) Itching Keratosis Kidney stone Lentigo Migraines mohs procedure Oral thrush Other specified disorder of gallbladder Pernicious anemia PND (post-nasal drip) Pulmonary nodule rib removal Squamous cell carcinoma Tobacco dependence in remission Home Medications atorvastatin 10 mg tablet 10 mg PO DAILY 08/08/14 [History Last Taken 06/12/23] biotin 10,000 mcg capsule 5,000 mcg PO DAILY 08/08/14 [History Last Taken Unknown] folic acid 1 mg tablet 1 mg PO DAILY 08/08/14 [History Last Taken 06/12/23] polyethylene glycol 3350 17 gram/dose oral powder 17 g PO DAILY 08/08/14 [History Last Taken 06/12/23] umeclidinium 62.5 mcg/actuation blister powder for inhalation (Incruse Ellipta) 1 inh inhalation Q24H COPD J44.9 #3 device 09/23/22 [Rx Last Taken 06/13/23] albuterol sulfate 90 mcg/actuation aerosol inhaler (Ventolin HFA) 2 puff inhalation Q6H PRN shortness of breath or wheezing #1 device 10/26/22 [Rx Last Taken Unknown] aspirin 81 mg tablet,delayed release 81 mg PO DAILY 04/14/23 [History Last Taken 06/12/23] levothyroxine 50 mcg tablet 75 mcg PO DAILY 04/14/23 [History Last Taken 06/13/23] sulfamethoxazole 800 mg-trimethoprim 160 mg tablet (Bactrim DS) 1 tab PO BID #20 tabs 06/07/23 [Rx Last Taken 06/13/23] cyanocobalamin (vitamin B-12) 1,000 mcg/mL injection solution (Dodex) 1,000 mcg IM QMONTH 06/13/23 [History Last Taken 05/16/23] glycerin-mineral oil-polycarbophil vaginal gel (Feminine Moisturizer and Lubricating(glyc-mnOil) vaginal gel) 1 ea vaginal .COMPLEX 06/13/23 [History Last Taken 06/12/23] minoxidil 5 % topical foam (Daylogic Minoxidil) 1 ea topical DAILY 06/13/23 [History Last Taken 06/12/23] Allergy/AdvReac Type Severity Reaction Status Date / Time metaxalone [From Skelaxin] Allergy Severe palpitations, Verified 06/13/23 12:49 tachycardia and itching adhesive Allergy NEEDS Verified 06/13/23 12:49 FOLLOW-UP amoxicillin trihydrate Allergy Unknown Verified 06/13/23 12:49 [From Augmentin] bacitracin [From Polysporin] Allergy Unknown Verified 06/13/23 12:49 polymyxin B sulfate Allergy Unknown Verified 06/13/23 12:49 [From Polysporin] potassium clavulanate Allergy Unknown Verified 06/13/23 12:49 [From Augmentin] propoxyphene napsylate AdvReac Nausea/Vom/ Verified 06/13/23 12:49 [From Darvocet-N 100] Diarrhea Family History (Updated 04/14/23 @ 13:32 by Marilu Duffy) Brother Cancer CAD (coronary artery disease) Heart disease Thyroid disorder Hypertension Father Myocardial infarction Heart disease Hypertension Seizures Sister Heart disease Hypertension Thyroid disorder Surgical History H/O cataract removal with insertion of prosthetic lens H/O foot surgery H/O lithotripsy History of appendectomy History of hysterectomy History of vitrectomy Hx laparoscopic cholecystectomy S/P Mohs surgery for basal cell carcinoma S/P tonsillectomy and adenoidectomy Social History Smoking Status: Former smoker second hand exposure: Yes alcohol intake: never substance use type: does not use ROS ROS Narrative General: Denies fever/chills HENT: Denies headache, has had nasal congestion with green drainage and sore throat improving on Bactrim EYES: Denies changes in vision Resp: No change in cough and had been fairly at baseline from a breathing perspective until today Cardiac: Denies chest pain but did feel like her heart was racing GI: Denies abdominal pain, has had some loose stool and some epigastric burning since being on Bactrim : Denies changes in urination Extremity: Denies swelling MSK: Denies weakness Neuro: Has chronic problems with neuropathy and chronic tremor Heme: Denies any bleeding or bruising Skin: Has chronic, patient takes minoxidil Psychiatric: No complaints voiced Vital Signs Vital Signs Vital Signs: 06/13/23 12:47 06/13/23 13:10 06/13/23 13:32 Temperature 98.2 F Temperature Source Temporal Pulse Rate 101 H Respiratory Rate 16 Respiratory Effort Normal Non-Labored Respiratory Depth Normal Respiratory Pattern Normal Blood Pressure 159/87 H Blood Pressure Mean 111 Pulse Ox 98 Oxygen Delivery Method Room Air Room Air Room Air 06/13/23 14:00 06/13/23 15:00 Temperature Temperature Source Pulse Rate 74 70 Respiratory Rate 15 17 Respiratory Effort Respiratory Depth Respiratory Pattern Blood Pressure 117/70 108/60 Blood Pressure Mean 85 76 Pulse Ox 93 93 Oxygen Delivery Method Weight Weight: 61.32 kg Body Mass Index (BMI) 23.2 Physical Exam Narrative General: Alert, oriented, no apparent distress HEENT: Atraumatic, normocephalic Eyes: Anicteric, normal conjunctiva, extraocular movements grossly intact Neck: Supple Respiratory: Somewhat diminished at the bases, normal respiratory effort Cardiovascular: Regular rate and rhythm GI: Soft, nontender, nondistended Extremities: No edema Musculoskeletal: Moving all extremities Neuro: No overt focal neurological deficits Skin: No rashes appreciated Psych: Cooperative Results Lab / Micro Data 06/13/23 13:40 06/13/23 13:40 Labs: Laboratory Results - last 24 hr 06/13/23 13:40: WBC 7.7, RBC 4.78, Hgb 13.7, Hct 43.0, MCV 90.0, MCH 28.7, MCHC 31.9 L, RDW Std Deviation 43.2, RDW Coeff of Gildardo 13.0, Plt Count 325, MPV 10.2, Immature Gran % (Auto) 0.300, Neut % (Auto) 81.3 H, Lymph % (Auto) 11.5 L, [place] % (Auto) 5.6, Eos % (Auto) 0.8, Baso % (Auto) 0.5, Absolute Neuts (auto) 6.2, Absolute Lymphs (auto) 0.88, Nucleated RBC % 0, D-Dimer Quant (PE/DVT) 0.53 H*, Sodium 135 L, Potassium 4.1, Chloride 102, Carbon Dioxide 25.0, Anion Gap 8, BUN 17, Creatinine 1.28 H, Estim Creat Clear Calc 31.78, Est GFR (MDRD) Af Amer 52 L, Est GFR (MDRD) Non-Af 43 L, BUN/Creatinine Ratio 13.3, Glucose 115 H, Calcium 9.8, Troponin I High Sens 11, B-Natriuretic Peptide 48.9 Micro: Microbiology 06/13/23 13:40 Mucosa - Nose SARS-CoV-2, Influenza & RSV (PCR) - Final Imaging Radiology Impression Chest X-Ray 06/13/23 14:08 IMPRESSION: Hyperinflation. COPD. Stable examination. Electronically Signed: Audie Ramires MD at 14:33 EST , Chest CTA 06/13/23 15:10 IMPRESSION: No evidence of pulmonary embolism. Hyperinflation and diffuse emphysematous changes with bullous formation more prominent in the upper lobes. Electronically Signed: Audie Ramires MD at 15:46 EST , Assessment & Plan Assessment/Plan (1) Hypoxia: (2) Hypothyroidism: (3) History of COPD: (4) GERD (gastroesophageal reflux disease): (5) Acute dyspnea: PLAN: Plan #Hypoxia and SOB w/ hx chronic COPD and chronic heart failure with preserved ejection fraction -CTA negative for PE -COVID/RSV/FLU negative -Will check resp panel -Trop wnl, bnp wnl -Last echo 01/2023 with stage II diastolic dysfunction and PASP of 28 -Follows with pulmonology for her COPD -Last pulmonary function tests in 2018 with irreversible moderately severe large airway obstructive ventilatory defect with hyperinflation, air trapping, and reduction in diffusing capacity -Will treat with nebs, as needed albuterol -Somewhat diminished air movement at the bases so query if this could be COPD related, will start on oral steroids -Patient has been on Bactrim but has been having epigastric burning and loose stools with this, will switch to Levaquin -Incentive spirometry, daily weights, I's and O's #CKDIIIa -Slightly up from baseline but minimally and may be secondary to Bactrim -Received some fluids in the ED, monitor I's and O's #Hypothyroidism -Continue Home medication #Epigastric burning -When taking bactrim -Changing abx -Also has listed hx of GERD, will start on Short-term PPI to assess for efficacy #Sinus infection -As above, abx adjusted #Chronic familial tremor -Has felt it was somewhat worse recently, will follow with her neurologist in August # Chronic alopecia -Uses topical minoxidil at home for this #DVT ppx: Lovenox subcu Emperatriz Zamorano MD Time spent in the patient's overall evaluation,decision-making process, review of diagnostic data, adjustment of management, discussion with other providers, nursing nursing and ancillary staff involved in patient's care documentation, 59 minutes Charges/Coding Visit Charges Inpatient E&M: 24734 Init Hosp L2
--- OUTSIDE RECORDS SUMMARY | 2023-06-13 17:31 | XMS RPT_ITS | CCD ---
Author Name Unknown Address [facility] [address] [place] [address] Organization [facility] Results Test Name Value Interpretation Reference Range Facil ity Progress note 03-17-2021 Note Date & Type Note Facility 03-17-2021 Note HNO ID: [id number] Author: Praneeth Ceron APRN.DELIVERY TABLE OPERATOR Service: ? Author Type: Nurse Practitioner Type: [...] CHOLECYSTECTOMY 07/2014 - COLONOSCOP W/ OR W/O [facility] SPEC 01/31/2013 Colonoscopy - PAST SURGICAL [...] lesions, rash, and (more content not included)... [facility] Clinical Note 07-08-2020 Note Date & Type Note Facility 07-08-2020 Note Patient Outreach ([facility]) HANDY VEGA ([id number]) 1945 F YBB Date Time Provider Department [...] Fully Assessed Order(s):SARS-COVID VACCINE 1ST DOSE APPT [[id number]] Order #: [id number] FUTURE Prescriptions as of 07/08/2020 Sig: PEPCID [...] Alopecia [L65.9] 08/28/2014 Encounter Status:Closed by JIGAR ARMSTROGN on 07/11/20 [facility] Summary Purpose Family History No Family History Records FoundNo Family History Records Found Advance Directives No Advanced Directives Records FoundNo Advanced Directives Records Found Additional Source Comments INFORMATION SOURCE (unrecogn ized section and content) DATE CREATED AUTHOR AUTHOR'S ORGANIZ ATION 06/12/2021 [facility] FOR RECORDS PERTAINING TO PATIENTS WHO ARE [...] BE BASED ON THE PRIMARY CLINICAL RECORDS. [facility] [employer] [facility]. provides no warranty or guarantee of the accuracy or completeness of information in this document.
[2023-06-13] MEDS: Ipratropium/Albuterol Sulfate 3 ML AMPUL.NEB INHALATION (19:27)
[2023-06-13] MEDS: predniSONE 20 MG Tablet 40 MG PO (20:33)
[2023-06-13] MEDS: Pantoprazole Sodium 40 MG Tablet PO (20:33)
[2023-06-13] MEDS: levoFLOXacin 750 MG Tablet PO (20:34)
[2023-06-13] MEDS: guaiFENesin 600 MG Tablet PO (21:21)
[2023-06-13] MEDS: Atorvastatin Calcium 10 MG Tablet PO (21:21)
[2023-06-14] VITALS (9 sets, daily range): BP systolic 115–147; BP diastolic 58–76; PULSE 82–102; RESP 16–20; TEMP 36.4–36.8; O2SAT 91–94; BMI 23.3
[2023-06-14] MEDS: Levothyroxine 75 MCG Tablet PO (05:21)
[2023-06-14] MEDS: Ipratropium/Albuterol Sulfate 3 ML AMPUL.NEB INHALATION ×3 (07:13→20:49)
[2023-06-14] MEDS: predniSONE 20 MG Tablet 40 MG PO (08:16)
[2023-06-14] MEDS: Aspirin E.C. 81 MG Tablet PO (08:16)
[2023-06-14 08:44] LABS: Absolute Lymphocyte Count 0.56 X10^3/uL (0.83-4.51); Absolute Neutrophil Count 5.1 X10^3/uL (2.0-7.7); Eosinophil# 0.01 X10^3/uL; Eosinophils% 0.2 % (0-5); Hemoglobin 13.7 g/dL (12.0-15.0); Lymphocyte # 0.56 X10^3/ul (0.83-4.51); Lymphocyte % 9.8 % (19-41); Mean Corp Hgb Conc 32.6 g/dL (32-36); Mean Corpuscular Hgb 29.5 pg (27.0-32.0); Mean Corpuscular Volume 90.5 fL (81-99); Mean Platelet Vol. 10.5 fl (6.2-12.0); Monocyte# 0.06 X10^3/uL; NRBC Flagged by Analyzer 0 % (0-5); Neutrophil # 5.08 X10^3/uL (2.7-7.7); Neutrophil % 88.7 % (47-70); POSITIVE DIFFERENTIAL YES; Platelet Count 338 K/mm3 (150-450); RBC Distribution Width CV 13.2 % (11.6-14.6); RBC Distribution Width SD 43.3 fl (35.1-43.9); Red Blood Count 4.64 M/mm3 (4.2-5.4); White Blood Count 5.7 K/mm3 (4.4-11.0)
[2023-06-14 09:21] LABS: Anion Gap 9 (5-15); BUN 17 mg/dL (7-18); BUN/Creat Ratio 13.7 RATIO (10-20); Calcium,Total 10.1 mg/dL (8.5-10.1); Chloride 106 mmol/L (98-107); Creatinine, Serum 1.24 mg/dL (0.55-1.02); EST Glomerular Filtration Rate 45 mL/min (>60); Est Glom Filt Rate - Afr Amer 54 mL/min (>60); Estimated Creatinine Clearance 32.81 ml/min; Glucose 149 mg/dL (74-106); Magnesium 2.2 mg/dL (1.6-2.6); Sodium Level 137 mmol/L (136-145); Thyroid Stim Hormone (TSH) 0.41 uIU/mL (0.358-3.74)
--- NOTE | 2023-06-14 10:22 | ECHOL_ITS ---
Reason For Study: Dyspnea/SOB Procedure This was a limited 2D transthoracic echocardiogram. Exam performed portable in patient room. Left Ventricle Normal LV size. Left ventricular systolic function is normal. The estimated ejection fraction is 65 %. Stage 1 diastolic dysfunction. No regional wall motion abnormalities noted. Right Ventricle Normal right ventricle. Normal systolic function. Atria Normal left atrium. Normal right atrium. Mitral Valve The mitral valve is structurally normal. No prolapse or stenosis seen. There is Mild focal posterior mitral annular calcification. Trivial mitral valve insufficiency. Tricuspid Valve Normal tricuspid valve. Trivial tricuspid valve insufficiency. Right ventricular systolic pressure estimated to be 31 mmHg. Aortic Valve Trisinus/trileaflet aortic valve. Moderate focal aortic valve calcification. Pulmonic Valve The pulmonic valve is not well visualized. Great Vessels Normal aortic root. Pericardium/Pleural No pericardial effusion. MMode/2D Measurements & Calculations LVIDd: 5.0 cm IVSd: 0.77 cm LVAd ap4: 19.2 cm2 LVIDs: 3.3 cm LVPWd: 0.75 cm LVLd ap4: 6.2 cm FS: 33.3 % EDV(MOD-sp4): 48.1 ml EDV(sp4-el): 50.4 ml LVAs ap4: 10.6 cm2 LVLs ap4: 5.1 cm ESV(MOD-sp4): 19.1 ml ESV(sp4-el): 18.4 ml EF(MOD-sp4): 60.3 % EF(sp4-el): 63.4 % SV(MOD-sp4): 29.0 ml SV(sp4-el): 31.9 ml TAPSE: 1.8 cm Time Measurements MV dec time: 0.22 sec Doppler Measurements & Calculations MV E max ernesto: 72.8 cm/sec Lat Peak E' Ernesto: 11.4 cm/sec Med Peak E' Ernesto: 8.3 cm/sec MV A max ernesto: 102.3 cm/sec E/E' lat: 6.4 E/E' med: 8.7 MV E/A: 0.71 MV dec slope: 343.6 cm/sec2 LV V1 max: 132.2 cm/sec TR max ernesto: 262.3 cm/sec LV V1 max P.0 mmHg TR max P.5 mmHg LV V1 mean P.7 mmHg LV V1 mean: 90.1 cm/sec LV V1 VTI: 28.0 cm ECHO/Echo, Limited Study Interpretation Summary The estimated ejection fraction is 65 %. Stage 1 diastolic dysfunction. There is Mild focal posterior mitral annular calcification. Moderate focal aortic valve calcification. Limited echo performed due to full study 01/24/2023. Compared to prior study, there is no significant change. Ordering Physician: Florentino Renee Referring Physician: Ayush Medina Performed By: Shree Ross RCS
--- NOTE | 2023-06-14 10:30 | CASEMGMT ---
RN CM Face to Face with patient for initial transition planning/care coordination assessment. RN CM introduced self and role at [facility]. Patient lying in bed, alert and oriented, daughter at bedside. Patient willing to participate in assessment and is able to answer all questions appropriately. Care providers, pharmacy, and demographics verified. Patient wishes to discharge home, denies need for home health at this time. Patient states she has no further needs or concerns at this time. CM to follow for discharge planning needs that may arise. PCP: Adam Specialists: Yury, superintendent communications; Jacob Espino, solution spec; Lemuel, neuro [facility]; Preferred Pharmacy: [facility] Insurance: [employer] Prescription Benefit: yes Living Will/HPOA: yes, son Darwin Jimenez LNOK: son, daughter Living Arrangements: Patient lives alone in a single story home with 3-4 steps and railing. Patient is independent at home. Transportation: self, friend DME/HHC: Patient has grab bars and pulse ox. Patient denies previous SNF or HHC. Disposition Plan: Patient to discharge home with family support and follow-up plans in place. Latesha WHALEN, RN, CM
[2023-06-14] MEDS: Enoxaparin 40 MG/0.4 ML Syringe SC (11:40)
[2023-06-14] MEDS: guaiFENesin 600 MG Tablet PO ×2 (11:41→20:35)
[2023-06-14] MEDS: Pantoprazole Sodium 40 MG Tablet PO (11:41)
--- NOTE | 2023-06-14 14:13 | PCM.PN.HOSP ---
Subjective Subjective Doing well, breathing a little bit easier today not requiring any oxygen at rest Objective Data Objective Data Vital Signs: Vital Signs Temp Pulse Resp BP Pulse Ox O2 Del Method 97.5 F L 85 20 H 115/58 L 92 Room Air 06/14/23 08:58 06/14/23 13:18 06/14/23 13:18 06/14/23 08:58 06/14/23 09:00 06/14/23 09:00 Oxygen Delivery Method Room Air Weight: 135 lb 12.876 oz Body Mass Index (BMI) 23.3 Intake & Output: Intake and Output for Last 24 Hours 06/13/23 06/14/23 06/15/23 03:59 03:59 03:59 Intake Total 1000 / 1000 Balance 1000 / 1000 Lab / Micro Data 06/14/23 07:51 06/14/23 07:51 Labs: Laboratory Results - last 24 hr 06/13/23 13:40: D-Dimer Quant (PE/DVT) 0.53 H*, Sodium 135 L, Potassium 4.1, Chloride 102, Carbon Dioxide 25.0, Anion Gap 8, BUN 17, Creatinine 1.28 H, Estim Creat Clear Calc 31.78, Est GFR (MDRD) Af Amer 52 L, Est GFR (MDRD) Non-Af 43 L, BUN/Creatinine Ratio 13.3, Glucose 115 H, Calcium 9.8, Troponin I High Sens 11, B-Natriuretic Peptide 48.9 06/14/23 07:51: WBC 5.7, RBC 4.64, Hgb 13.7, Hct 42.0, MCV 90.5, MCH 29.5, MCHC 32.6, RDW Std Deviation 43.3, RDW Coeff of Gildardo 13.2, Plt Count 338, MPV 10.5, Immature Gran % (Auto) 0.300, Neut % (Auto) 88.7 H, Lymph % (Auto) 9.8 L, Petroleum % (Auto) 1.0, Eos % (Auto) 0.2, Baso % (Auto) 0.0, Absolute Neuts (auto) 5.1, Absolute Lymphs (auto) 0.56 L, Nucleated RBC % 0, Sodium 137, Potassium 4.0, Chloride 106, Carbon Dioxide 22.0, Anion Gap 9, BUN 17, Creatinine 1.24 H, Estim Creat Clear Calc 32.81, Est GFR (MDRD) Af Amer 54 L, Est GFR (MDRD) Non-Af 45 L, BUN/Creatinine Ratio 13.7, Glucose 149 H, Calcium 10.1, Magnesium 2.2, TSH 0.41 Micro: Microbiology 06/13/23 19:40 Mucosa - Nasopharyngeal Respiratory Panel (PCR) - Final 06/13/23 13:40 Mucosa - Nose SARS-CoV-2, Influenza & RSV (PCR) - Final Radiography Diagnostic Testing: Radiology Impression Chest X-Ray 06/13/23 14:08 IMPRESSION: Hyperinflation. COPD. Stable examination. Electronically Signed: Audie Ramires MD at 14:33 EST , Chest CTA 06/13/23 15:10 IMPRESSION: No evidence of pulmonary embolism. Hyperinflation and diffuse emphysematous changes with bullous formation more prominent in the upper lobes. Electronically Signed: Audie Ramires MD at 15:46 EST , Echocardiogram 06/14/23 10:22 Interpretation Summary The estimated ejection fraction is 65 %. Stage 1 diastolic dysfunction. There is Mild focal posterior mitral annular calcification. Moderate focal aortic valve calcification. Limited echo performed due to full study 01/24/2023. Compared to prior study, there is no significant change. Ordering Physician: Florentino Renee Referring Physician: Ayush Medina Performed By: Shree Ross RCS Physical Exam Narrative General: Alert, Oriented x3, Cooperative, No apparent distress HEENT: Atraumatic, PERRLA, EOMI, Normocephalic Oral: Moist Mucosa Neck: Supple, No JVD Lungs: Diminished, Normal air movement, No rhonchi, No wheeze, faint crackles Cardiovascular: Regular rate, Regular Rhythm, Normal S1, Normal S2, No murmurs Abdomen: Soft, Non Tender, Non-Distended, No Hepato-splenomegaly Extremities: No edema, Capillary Refill Less than 3 Seconds Skin: No rashes, No breakdown Musculoskeletal: No Tenderness to Palpation of Joints or Extremities Neurological: Cranial nerves II-XII grossly intact, Motor Exam 5/5 strength throughout, Sensory exam intact to light touch and pain Psych/Mental Status: Normal Affect, Appropriate Assessment & Plan Assessment/Plan (1) Hypoxia: (2) Hypothyroidism: (3) History of COPD: (4) GERD (gastroesophageal reflux disease): (5) Acute dyspnea: PLAN: Plan 1. Shortness of breath with hypoxia secondary to acute COPD exacerbation ? CTA of the chest was negative for PE and she does report having a recent upper respiratory infection prior to her shortness of breath started ? Continue with breathing treatments and inhalers ? COVID, RSV, flu are all negative ? Continue with Levaquin for her recent sinus infection ? Continue with steroids and breathing treatments ? Repeat echo with stage I diastolic dysfunction which is an improvement from her echo back in January so CHF exacerbation is unlikely 2. Hyperlipidemia ? Stable ? Continue with her Lipitor 3. CKD 3 A ? Renal function is improving ? Will continue to monitor 4. Hypothyroidism ? Stable ? Continue with Synthroid 5. Chronic familial tremor/IBS/fibromyalgia ? Had an extensive discussion that a lot of these conditions can be exacerbated by significant stress and she states that she lost her of over 50 years last year due to brain cancer that he has been struggling with for 4 years prior and his was 1 of 5 family members who in a 9-month. ? Discussed the benefits of outpatient therapy DVT: Lovenox Charges/Coding Visit Charges Inpatient E&M: 65130 Subs Hosp L2
[2023-06-14] MEDS: Atorvastatin Calcium 10 MG Tablet PO (20:35)
[2023-06-15 05:18] VITALS: BP 123/68; PULSE 85; RESP 16; TEMP 36.6; O2SAT 96
[2023-06-15] MEDS: Levothyroxine 75 MCG Tablet PO (05:22)
[2023-06-15 06:00] VITALS: BMI 23.1
[2023-06-15 07:42] VITALS: PULSE 85; RESP 20; O2SAT 96
[2023-06-15] MEDS: Ipratropium/Albuterol Sulfate 3 ML AMPUL.NEB INHALATION (07:42)
[2023-06-15 09:42] VITALS: BP 117/61; PULSE 91; RESP 16; TEMP 36.5; O2SAT 96
[2023-06-15] MEDS: Aspirin E.C. 81 MG Tablet PO (09:46)
[2023-06-15] MEDS: Pantoprazole Sodium 40 MG Tablet PO (09:47)
[2023-06-15] MEDS: predniSONE 20 MG Tablet 40 MG PO (09:47)
[2023-06-15] MEDS: guaiFENesin 600 MG Tablet PO (09:47)
[2023-06-15] MEDS: Enoxaparin 40 MG/0.4 ML Syringe SC (09:47)
[2023-06-15] MEDS: levoFLOXacin 750 MG Tablet PO (09:47)
[2023-06-15 09:55] VITALS: O2SAT 91; O2SAT 94
--- NOTE | 2023-06-15 11:19 | DCINST_ITS ---
Discharge Instructions Diet Discharge Diet: Low fat / Low cholesterol Activity Discharge Activity: Return to Normal Activity Dressing / Incision Call your doctor if you observe: Fever of 101 or Higher, Shortness of breath, Dizziness, Fainting spells, Swelling in the ankles, Chest pain and Increased palpitations (irregular heartbeat) Follow Up Care Test Results: Test results from this visit will be discussed in further detail at your follow- up appointment, if applicable. Discharge Plan Admission Admit Date/Time: 06/13/23 16:52 Attending Provider: Florentino Renee Primary Care Provider: Ayush Medina Consulting Providers: Emperatriz Zamorano Discharge Orders/Prescriptions Prescriptions: New prednisone 20 mg Tablet 40 mg PO DAILY@0800 5 Days Qty: 10 0RF pantoprazole 40 mg Tablet,Delayed Release (Dr/Ec) 40 mg PO DAILY 30 Days Qty: 30 0RF levofloxacin 750 mg Tablet 750 mg PO Q48 3 Days Qty: 3 0RF Continued aspirin 81 mg tablet,delayed release (DR/EC) 81 mg PO DAILY atorvastatin 10 mg tablet 10 mg PO DAILY Patient Comments: once a day biotin 10,000 MCG capsule 5,000 mcg PO DAILY folic acid 1 mg tablet 1 mg PO DAILY Patient Comments: once a day polyethylene glycol 3350 17 gram/dose powder 17 g PO DAILY Patient Comments: as needed levothyroxine 50 mcg tablet 75 mcg PO DAILY Fem Moist andLub(glyc-min oil) Gel 1 ea vaginal .COMPLEX Rx Instructions: USES EVERY 3 DAYS minoxidil [Daylogic Minoxidil] 5 % foam 1 ea topical DAILY cyanocobalamin (vitamin B-12) [Dodex] 1,000 mcg/mL solution 1,000 mcg IM QMONTH Incruse Ellipta 62.5 mcg/actuation blister with device 1 inh INHALATION Q24H Qty: 3 3RF albuterol sulfate [Ventolin HFA] 90 mcg/actuation HFA aerosol inhaler 2 puff INHALATION Q6H PRN (Reason: shortness of breath or wheezing) Qty: 1 3RF Discontinued sulfamethoxazole-trimethoprim [Bactrim DS] 800-160 mg tablet 1 tab PO BID Qty: 20 0RF Referrals / Follow Up: Ayush Medina MD [Primary Care Provider] - 06/21/23 8:10 am Disposition Disposition (needs filled in before D/C Order can be placed): Home, Self Care
--- NOTE | 2023-06-15 11:57 | CASEMGMT ---
Patient has order for discharge. RN in to discuss needs at discharge. Patient denies needs or help at discharge. Patient had no further questions or concerns.
--- NOTE | 2023-06-15 12:12 | PHA.DC.MC.R ---
Pharmacy [facility] has performed discharge medication reconciliation and counseling for this patient. 1. LEVOFLOXACIN 750MG PO Q48H X 3 DOSES 2. PANTOPRAZOLE 40MG PO DAILY 3. PREDNISONE 40MG PO BREAKFAST X 5 DAYS The patient's discharge medication list was reviewed for discrepancies and discrepancies were resolved. The patient was counseled on the following discharge medications and changes in medications for homegoing were reviewed. The Reason for Use, instructions for use, and potential side effects were reviewed for all new medications. The patient's questions regarding all of their medications were answered. The patient was able to verbally demonstrate an understanding of their discharge medications. Medications at Discharge Home Medications atorvastatin 10 mg tablet 10 mg PO DAILY 08/08/14 biotin 10,000 mcg capsule 5,000 mcg PO DAILY 08/08/14 folic acid 1 mg tablet 1 mg PO DAILY 08/08/14 polyethylene glycol 3350 17 gram/dose oral powder 17 g PO DAILY 08/08/14 umeclidinium 62.5 mcg/actuation blister powder for inhalation (Incruse Ellipta) 1 inh inhalation Q24H COPD J44.9 #3 device 09/23/22 albuterol sulfate 90 mcg/actuation aerosol inhaler (Ventolin HFA) 2 puff inhalation Q6H PRN shortness of breath or wheezing #1 device 10/26/22 aspirin 81 mg tablet,delayed release 81 mg PO DAILY 04/14/23 levothyroxine 50 mcg tablet 75 mcg PO DAILY 04/14/23 cyanocobalamin (vitamin B-12) 1,000 mcg/mL injection solution (Dodex) 1,000 mcg IM QMONTH 06/13/23 glycerin-mineral oil-polycarbophil vaginal gel (Feminine Moisturizer and Lubricating(glyc-mnOil) vaginal gel) 1 ea vaginal .COMPLEX 06/13/23 minoxidil 5 % topical foam (Daylogic Minoxidil) 1 ea topical DAILY 06/13/23 levofloxacin 750 mg tablet 750 mg PO Q48 3 days #3 tabs 06/15/23 pantoprazole 40 mg tablet,delayed release 40 mg PO DAILY 30 days #30 tabs 06/15/23 prednisone 20 mg tablet 40 mg (2 x 20 mg) PO DAILY@0800 5 days #10 tabs 06/15/23
--- NOTE | 2023-06-15 12:42 | PCM.DC.SUM ---
Providers Date of Admission: 06/13/23 Primary Care Physician: Dr. Ayush Medina MD Reason For Visit: SOB AND HYPOXIA Diagnosis Discharge Diagnosis (1) Hypoxia: Status: Acute Code(s): R09.02 - Hypoxemia (2) Hypothyroidism: Status: Chronic Code(s): E03.9 - Hypothyroidism, unspecified (3) History of COPD: Status: Chronic Code(s): Z87.09 - Personal history of other diseases of the respiratory system (4) GERD (gastroesophageal reflux disease): Status: Chronic Code(s): K21.9 - Gastro-esophageal reflux disease without esophagitis (5) Acute dyspnea: Status: Acute Code(s): R06.00 - Dyspnea, unspecified Medications at Discharge Home Medications atorvastatin 10 mg tablet 10 mg PO DAILY 08/08/14 biotin 10,000 mcg capsule 5,000 mcg PO DAILY 08/08/14 folic acid 1 mg tablet 1 mg PO DAILY 08/08/14 polyethylene glycol 3350 17 gram/dose oral powder 17 g PO DAILY 08/08/14 umeclidinium 62.5 mcg/actuation blister powder for inhalation (Incruse Ellipta) 1 inh inhalation Q24H COPD J44.9 #3 device 09/23/22 albuterol sulfate 90 mcg/actuation aerosol inhaler (Ventolin HFA) 2 puff inhalation Q6H PRN shortness of breath or wheezing #1 device 10/26/22 aspirin 81 mg tablet,delayed release 81 mg PO DAILY 04/14/23 levothyroxine 50 mcg tablet 75 mcg PO DAILY 04/14/23 cyanocobalamin (vitamin B-12) 1,000 mcg/mL injection solution (Dodex) 1,000 mcg IM QMONTH 06/13/23 glycerin-mineral oil-polycarbophil vaginal gel (Feminine Moisturizer and Lubricating(glyc-mnOil) vaginal gel) 1 ea vaginal .COMPLEX 06/13/23 minoxidil 5 % topical foam (Daylogic Minoxidil) 1 ea topical DAILY 06/13/23 levofloxacin 750 mg tablet 750 mg PO Q48 3 days #3 tabs 06/15/23 pantoprazole 40 mg tablet,delayed release 40 mg PO DAILY 30 days #30 tabs 06/15/23 prednisone 20 mg tablet 40 mg (2 x 20 mg) PO DAILY@0800 5 days #10 tabs 06/15/23 Hospital Course Operations None Procedures 2-D Echocardiogram Summary of Care Provided Minutes Spent on Discharge: 36 Hospital Course: Per HPI: HANDY VEGA, is a 77F with past history of smoking tobacco, COPD, hypertension, hypothyroidism, hyperlipidemia, fibromyalgia who presents to the emergency department for feeling of shortness of breath, palpitations. She has been sick for about 2 weeks and returned home from [place] on June 04. Is currently on Bactrim for sinus infection. Today was running errands and felt her heart was racing that she was short of breath and she called her PCP who sent her to the ED. in the ED workup unrevealing for acute etiology however when patient ambulated O2 sats dropped to 85% and hospitalist contacted for admission. Patient evaluated at bedside and reports she chronically has problems with shortness of breath on exertion that is managed with a daily inhaler and as needed albuterol before working out but today that she noted shortness of breath when she was running errands and her heart racing which was out of the ordinary for her, has been on Bactrim since 06/07 after she had a runny nose and nasal congestion and then developed throat soreness and was having green nasal discharge, symptoms have been improving with Bactrim but she reports she has been having some burning in her stomach and nausea for the past 4 days and some loose stool since the start of this as well. Additionally has chronic tremor that has been worsened recently but will be seeing neurology for this in August. She reports many stressors in the past year with her and multiple other family members dying is very concerned about her health and what could be going on at this time. Patient has not felt her heart racing since being in the ED and breathing feeling better just sitting there but discussed her hypoxia and patient agreeable to admission. Hospital Course: 1. Shortness of breath with transient hypoxia secondary to COPD exacerbation from and upper respiratory infection?77-year-old female with a history of COPD presented to the hospital with shortness of breath. This was preceded by an episode of an upper respiratory infection potentially converted to a bacterial sinus infection. She was initially started on Bactrim as an outpatient but was developing some epigastric abdominal burning with this so she was transition to Levaquin. She was also started on steroids and was able to return to room air fairly quickly. She tested negative for COVID, RSV, and flu but she did better with the steroids and breathing treatments. There is also some concern for possible heart failure exacerbation so an echo was performed which showed that her stage II diastolic dysfunction that was seen in January was rated as a stage I diastolic dysfunction on this admission. Therefore I do not think that she had heart failure exacerbation at all. CT of the chest on admission was negative for PE or any signs of pneumonia. She did amatory pulse ox today and did not require any oxygen. I discussed with her the plan for discharge she expressed understanding the risk benefits going home and would like to go home today. 2. Hyperlipidemia, CKD 3A, hypothyroidism, chronic familial tremor, IBS, fibromyalgia, chronic diastolic dysfunction are all chronic medical conditions which complicate her care. Her home medications were continued where appropriate Physical Exam Narrative General: Alert, Oriented x3, Cooperative, No apparent distress HEENT: Atraumatic, PERRLA, EOMI, Normocephalic Oral: Moist Mucosa Neck: Supple, No JVD Lungs: Diminished, Normal air movement, No rhonchi, No wheeze, no rales Cardiovascular: Regular rate, Regular Rhythm, Normal S1, Normal S2, No murmurs Abdomen: Soft, Non Tender, Non-Distended, No Hepato-splenomegaly Extremities: No edema, Capillary Refill Less than 3 Seconds Skin: No rashes, No breakdown Musculoskeletal: No Tenderness to Palpation of Joints or Extremities Neurological: Cranial nerves II-XII grossly intact, Motor Exam 5/5 strength throughout, Sensory exam intact to light touch and pain Psych/Mental Status: Normal Affect, Appropriate Weight / BMI Weight Weight: 134 lb 7.712 oz Body Mass Index (BMI) 23.1 ABG / Lab / Microbiology Data 06/14/23 07:51 06/14/23 07:51 Microbiology: Microbiology 06/13/23 19:40 Mucosa - Nasopharyngeal Respiratory Panel (PCR) - Final 06/13/23 13:40 Mucosa - Nose SARS-CoV-2, Influenza & RSV (PCR) - Final D/C Instructions Discharge Diet: Low fat / Low cholesterol Call your doctor if you observe: Fever of 101 or Higher, Shortness of breath, Dizziness, Fainting spells, Swelling in the ankles, Chest pain and Increased palpitations (irregular heartbeat) Meaningful Use Info Meaningful Use Diagnoses (Choose all that apply): None applicable Discharge Plan Admission Admit Date/Time: 01/29/24 16:52 Attending Provider: Florentino Renee Primary Care Provider: Ayush Medina Consulting Providers: Emperatriz Zamorano Discharge Orders/Prescriptions Prescriptions: New prednisone 20 mg Tablet 40 mg PO DAILY@0800 5 Days Qty: 10 0RF pantoprazole 40 mg Tablet,Delayed Release (Dr/Ec) 40 mg PO DAILY 30 Days Qty: 30 0RF levofloxacin 750 mg Tablet 750 mg PO Q48 3 Days Qty: 3 0RF Continued aspirin 81 mg tablet,delayed release (DR/EC) 81 mg PO DAILY atorvastatin 10 mg tablet 10 mg PO DAILY Patient Comments: once a day biotin 10,000 MCG capsule 5,000 mcg PO DAILY folic acid 1 mg tablet 1 mg PO DAILY Patient Comments: once a day polyethylene glycol 3350 17 gram/dose powder 17 g PO DAILY Patient Comments: as needed levothyroxine 50 mcg tablet 75 mcg PO DAILY Fem Moist andLub(glyc-min oil) Gel 1 ea vaginal .COMPLEX Rx Instructions: USES EVERY 3 DAYS minoxidil [Daylogic Minoxidil] 5 % foam 1 ea topical DAILY cyanocobalamin (vitamin B-12) [Dodex] 1,000 mcg/mL solution 1,000 mcg IM QMONTH Incruse Ellipta 62.5 mcg/actuation blister with device 1 inh INHALATION Q24H Qty: 3 3RF albuterol sulfate [Ventolin HFA] 90 mcg/actuation HFA aerosol inhaler 2 puff INHALATION Q6H PRN (Reason: shortness of breath or wheezing) Qty: 1 3RF Discontinued sulfamethoxazole-trimethoprim [Bactrim DS] 800-160 mg tablet 1 tab PO BID Qty: 20 0RF Referrals / Follow Up: Ayush Medina MD [Primary Care Provider] - 06/21/23 8:10 am Disposition Disposition (needs filled in before D/C Order can be placed): Home, Self Care Charges/Coding Visit Charges Inpatient E&M: 14046 Disch Hosp >30min
== END 2023-06-15 12:47 | disposition home or self-care (01) | DRG 191 ==
LOC: ED 16:09 → PCU 16:32
PROVIDERS: Nurse Practitioner; Admitting Provider Internal Medicine; Emergency Provider Emergency Medicine; PCP Family Medicine; Visit Provider Family Medicine
DX: J44.1 Chronic obstructive pulmonary disease with (acute) exacerbation (principal); I50.32 Chronic diastolic (congestive) heart failure; I13.0 Hypertensive heart and chronic kidney disease with heart failure and stage 1 through stage 4 chronic kidney disease, or unspecified chronic kidney disease; N18.31 Chronic kidney disease, stage 3a; E03.9 Hypothyroidism, unspecified; M79.7 Fibromyalgia; G25.0 Essential tremor; E78.5 Hyperlipidemia, unspecified; K21.9 Gastro-esophageal reflux disease without esophagitis; K58.0 Irritable bowel syndrome with diarrhea; L65.9 Nonscarring hair loss, unspecified; J32.9 Chronic sinusitis, unspecified; Z87.891 Personal history of nicotine dependence; Z79.51 Long term (current) use of inhaled steroids; Z79.82 Long term (current) use of aspirin; Z79.899 Other long term (current) drug therapy; Z87.442 Personal history of urinary calculi
CPT/HCPCS: 36415; 71046; 71275; 80048; 83735; 83880; 84443; 84484; 85025; 85379; 87631; 87633; 93005; 93308; 94640; 94668; 99252; 99285; J7030; Q9967; G0463

== ENCOUNTER → 2023-06-22 | Outpatient (CLI) | payer MEDICARE, OTHER, SELFPAY ==
--- NOTE | 2023-06-22 14:19 | CT_ITS ---
STUDY: LOW DOSE CT LUNG CANCER SCREENING REASON FOR EXAM: Female, 77 years old. h/o tobacco dependency. Patient smoked 1 pack per day for 53 years. RADIATION DOSAGE (If Supplied By Facility): CTDIvol = ( 2.01 ) mGy, DLP = ( 72.73 ) mGycm TECHNIQUE: No contrast was administered. Low dose technique was utilized (average mAS-38 and kVp 120). 1.25 mm axial source images with a slice interval of 1.25-mm were reconstructed in lung windows. 2.5 mm axial source images with a slice interval of 2.5-mm were reconstructed in lung windows. 5.0 mm axial source images with a slice interval of 5.0-mm were reconstructed in soft tissue windows. COMPARISON: Comparison is made with prior study of June 19, 2022. NODULES: No suspicious nodules are seen. Emphysema: Hyperinflation. Scarring in the right lung apex. Diffuse emphysematous changes with cystic changes seen more predominantly in the upper lobes. Stable linear scarring in the anterior aspect of the right middle lobe. Endobronchial lesion: None Aorta: Atherosclerotic plaque formation of the aortic arch. CORONARY ARTERIES: Coronary artery calcification is seen. Heart: Unremarkable Pulmonary artery: Mediastinal nodes: Other chest and abdominal findings: CT/Low Dose CT Lung Screening IMPRESSION: Lung-RADS category 2 - Continue annual screening with LDCT in 12 months. IMPORTANT NOTES FOR USE: ACR Lung-RADS Version 1.1 Assessment Categories Release Date: 2018 Category: Coded 0-4 bases on nodule(s) with highest degree of suspicion. Negative screen is defined as categories 1 and 2; a positive screen is defined as categories 3 and 4. Category 3 and 4A nodules that are unchanged on interval CT should be coded as category 2, and individuals returned to screening in 12 months. Category 4X: Category 3 or 4 nodules with additional imaging findings that increase the suspicion of lung cancer, such as spiculation, GGN that doubles in size in 1 year, enlarged lymph notes, etc. Category Modifiers: S (significant finding unrelated to lung cancer) Electronically Signed: Audie Ramires MD at 15:04 EST ,
== END | disposition home or self-care (01) ==
LOC: CT 14:18
PROVIDERS: PCP Family Medicine; Referring Provider Internal Medicine Critical Care Medicine; Visit Provider Internal Medicine Critical Care Medicine
DX: Z12.2 Encounter for screening for malignant neoplasm of respiratory organs (principal); F17.211 Nicotine dependence, cigarettes, in remission
CPT/HCPCS: 71271

== ENCOUNTER → 2023-07-19 | Outpatient (CLI) | payer MEDICARE, OTHER, SELFPAY ==
--- OUTSIDE RECORDS SUMMARY | 2023-07-19 07:28 | XMS RPT_ITS | CCD ---
Author Name Unknown Address [facility] [address] [place] [address] Organization [facility] Results Test Name Value Interpretation Reference Range Facil ity Progress note 03-17-2021 Note Date & Type Note Facility 03-17-2021 Note HNO ID: [id number] Author: Praneeth Ceron APRN.MARIAM Service: ? Author Type: Nurse Practitioner Type: [...] CHOLECYSTECTOMY 07/2014 - COLONOSCOP W/ OR W/O [facility] SPEC 01/31/2013 Colonoscopy - [...] lesions, rash, and (more content not included)... [facility] Clinical Note 07-08-2020 Note Date & Type Note Facility 07-08-2020 Note Patient Outreach ([place] [facility]) HANDY VEGA ([id number]) 1945 F YBB Date Time Provider Department [...] Fully Assessed Order(s):SARS-COVID VACCINE 1ST DOSE APPT [32120LCG] Order #: [id number] FUTURE Prescriptions as of 07/08/2020 Sig: PEPCID [...] Encounter Status:Closed by JIGAR ARMSTRONG on 07/11/20 [facility] Summary Purpose Family History No Family History Records FoundNo Family History Records Found Advance Directives No Advanced Directives Records FoundNo Advanced Directives Records Found Additional Source Comments INFORMATION SOURCE (unrecogn ized section and content) DATE CREATED AUTHOR AUTHOR'S ORGANIZ ATION 06/12/2021 [facility] FOR RECORDS PERTAINING TO PATIENTS WHO [...] BE BASED ON THE PRIMARY CLINICAL RECORDS. [employer] [facility]. provides no warranty or guarantee of the accuracy or completeness of information in this document.
[2023-07-19 10:21] LABS: Red Blood Count 4.83 M/mm3 (4.2-5.4); White Blood Count 6.2 K/mm3 (4.4-11.0)
[2023-07-19 10:22] LABS: Absolute Lymphocyte Count 1.42 X10^3/uL (0.83-4.51); Absolute Neutrophil Count 4.1 X10^3/uL (2.0-7.7); Basophil# 0.05 X10^3/uL; Basophil% 0.8 % (0-1); Eosinophil# 0.14 X10^3/uL; Eosinophils% 2.3 % (0-5); Hematocrit 44.3 % (37-47); Hemoglobin 14.5 g/dL (12.0-15.0); Lymphocyte # 1.42 X10^3/ul (0.83-4.51); Lymphocyte % 22.8 % (19-41); Mean Corp Hgb Conc 32.7 g/dL (32-36); Mean Corpuscular Volume 91.7 fL (81-99); Mean Platelet Vol. 11.7 fl (6.2-12.0); NRBC Flagged by Analyzer 0 % (0-5); Neutrophil # 4.09 X10^3/uL (2.7-7.7); Neutrophil % 65.8 % (47-70); Platelet Count 280 K/mm3 (150-450); RBC Distribution Width CV 13.5 % (11.6-14.6); RBC Distribution Width SD 46.5 fl (35.1-43.9)
[2023-07-19 10:40] LABS: Vitamin D,25 Hydroxy 37.4 ng/mL
[2023-07-19 10:55] LABS: ALB/GLOB Ratio 1.2 RATIO (0.9-2.4); AST(SGOT) 15 U/L (15-37); Alanine Aminotransfer ALT/SGPT 16 U/L (13-56); Albumin, Serum 3.5 g/dL (3.2-5.0); Alkaline Phosphatase 116 U/L (45-117); Anion Gap 7 (5-15); BUN 14 mg/dL (7-18); BUN/Creat Ratio 13.2 RATIO (10-20); Calcium,Total 9.7 mg/dL (8.5-10.1); Chloride 108 mmol/L (98-107); Creatinine, Serum 1.06 mg/dL (0.55-1.02); EST Glomerular Filtration Rate 53 mL/min (>60); Est Glom Filt Rate - Afr Amer 65 mL/min (>60); Globulin 2.9 g/dL (2.2-4.2); Glucose 82 mg/dL (74-106); Potassium 3.9 mmol/L (3.5-5.1); Protein, Total 6.4 g/dL (6.4-8.2); Sodium Level 144 mmol/L (136-145)
== END | disposition home or self-care (01) ==
LOC: MTLAB 07:19
PROVIDERS: PCP Family Medicine; Referring Provider Family Medicine; Visit Provider Family Medicine
DX: N18.2 Chronic kidney disease, stage 2 (mild) (principal); E55.9 Vitamin D deficiency, unspecified
CPT/HCPCS: 36415; 80053; 82306; 85025

== ENCOUNTER 2023-07-22 07:56 | Day surgery (SDC) | payer MEDICARE, OTHER, SELFPAY ==
[2023-07-22] VITALS (9 sets, daily range): BP systolic 81–129; BP diastolic 47–64; PULSE 64–80; RESP 16–18; TEMP 36.1–36.9; O2SAT 93–98; BMI 22.8
--- OUTSIDE RECORDS SUMMARY | 2023-07-22 08:09 | XMS RPT_ITS | CCD ---
Author Name Unknown Address [facility] [address] [place] [address] Organization [facility] Results Test Name Value Interpretation Reference Range Facil ity Progress note 03-17-2021 Note Date & Type Note Facility 03-17-2021 Note HNO ID: [id number] Author: Praneeth Ceron APRN.MARIAM Service: ? Author Type: Nurse Practitioner Type: Progress Notes Filed: 03/17/2021 5:47 PM Note Text: Handy Vega is a 75 year old female. Patient presents with: Follow Up Established Patient aHndy is a left handed female that presents [...] CHOLECYSTECTOMY 07/2014 - COLONOSCOP W/ OR W/O [facility] SPEC 01/31/2013 Colonoscopy - PAST SURGICAL [...] lesions, rash, and (more content not included)... [facility] Clinical Note 07-08-2020 Note Date & Type Note Facility 07-08-2020 Note Patient Outreach (CO VAMN) HANDY VEGA ([id number]) 1945 F YBB Date Time Provider Department [...] Fully Assessed Order(s):SARS-COVID VACCINE 1ST DOSE APPT [[id number]] Order #: [id number] FUTURE Prescriptions as of 07/08/2020 Sig: PEPCID [...] Encounter Status:Closed by JIGAR ARMSTRONG on 07/11/20 [facility] Summary Purpose Family History No Family History Records FoundNo Family History Records Found Advance Directives No Advanced Directives Records FoundNo Advanced Directives Records Found Additional Source Comments INFORMATION SOURCE (unrecogn ized section and content) DATE CREATED AUTHOR AUTHOR'S ORGANIZ ATION 06/12/2021 [facility] FOR RECORDS PERTAINING TO PATIENTS WHO ARE [...] BE BASED ON THE PRIMARY CLINICAL RECORDS. [facility] [employer] [facility]. provides no warranty or guarantee of the accuracy or completeness of information in this document.
--- NOTE | 2023-07-22 08:22 | PCM.HP.BLA ---
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 Is patient in pain?: No Allergies metaxalone [From Skelaxin] Allergy (Severe, Verified 04/14/23 13:35) palpitations, tachycardia and itchingadhesive Allergy (Verified 04/14/23 13:35) NEEDS FOLLOW-UPamoxicillin trihydrate [From Augmentin] Allergy (Verified 04/14/23 13:35) Unknownbacitracin [From Polysporin] Allergy (Verified 04/14/23 13:35) Unknownpolymyxin B sulfate [From Polysporin] Allergy (Verified 04/14/23 13:35) Unknownpotassium clavulanate [From Augmentin] Allergy (Verified 04/14/23 13:35) Unknownpropoxyphene napsylate [From Darvocet-N 100] Adverse Reaction (Verified 04/14/23 13:35) Nausea/Vom/Diarrhea Medications atorvastatin 10 mg tablet 10 mg PO DAILY 08/08/14 [History Confirmed 04/14/23] biotin 10,000 mcg capsule 5,000 mcg PO DAILY 08/08/14 [History Confirmed 04/14/23] conjugated estrogens 0.625 mg/gram vaginal cream 1 applicatio topical QMONTH 08/08/14 [History Confirmed 04/14/23] cyanocobalamin (vitamin B-12) 1,000 mcg/mL oral drops 1,000 mcg IM QMONTH 08/08/14 [History Confirmed 04/14/23] folic acid 1 mg tablet 1 mg PO DAILY 08/08/14 [History Confirmed 04/14/23] polyethylene glycol 3350 17 gram/dose oral powder 17 g PO DAILY 08/08/14 [History Confirmed 04/14/23] Voltaren 0 mg PO Q8H 03/16/16 [History Confirmed 04/14/23] umeclidinium 62.5 mcg/actuation blister powder for inhalation (Incruse Ellipta) 1 inh inhalation Q24H COPD J44.9 #3 device 09/23/22 [Rx Confirmed 04/14/23] albuterol sulfate 90 mcg/actuation aerosol inhaler (Ventolin HFA) 2 puff inhalation Q6H PRN shortness of breath or wheezing #1 device 10/26/22 [Rx] aspirin 81 mg tablet,delayed release 81 mg PO DAILY 04/14/23 [History Confirmed 04/14/23] dicyclomine 10 mg capsule 10 mg PO TID 04/14/23 [History Confirmed 04/14/23] levothyroxine 50 mcg tablet 75 mcg PO DAILY 04/14/23 [History Confirmed 04/14/23] metaxalone 400 mg tablet mg PO 04/14/23 [History Confirmed 04/14/23] PFSH Medical History (Updated 04/14/23 @ 05:[address] Ravindra Espinal MD) Acute bronchitis Acute pain of both ears Atypical chest pain Basal cell carcinoma (BCC) Bruises easily COPD (chronic obstructive pulmonary disease) Cough Dyspnea on exertion Fatigue Fibromyalgia GERD (gastroesophageal reflux disease) Hearing loss Hemangioma Hoarseness Hyperlipidemia Hypothyroidism IBS (irritable bowel syndrome) Itching Keratosis Kidney stone Lentigo Migraines mohs procedure Oral thrush Other specified disorder of gallbladder Pernicious anemia PND (post-nasal drip) Pulmonary nodule rib removal Squamous cell carcinoma Tobacco dependence in remission Surgical History (Updated 04/14/23 @ 13:31 by Marilu Duffy) H/O cataract removal with insertion of prosthetic lens H/O foot surgery H/O lithotripsy History of appendectomy History of hysterectomy History of vitrectomy Hx laparoscopic cholecystectomy S/P Mohs surgery for basal cell carcinoma S/P tonsillectomy and adenoidectomy Family History (Updated 04/14/23 @ 13:32 by Marilu Duffy) Brother Cancer CAD (coronary artery disease) Heart disease Thyroid disorder HypertensionFather Myocardial infarction Heart disease Hypertension SeizuresSister Heart disease Hypertension Thyroid disorder Social History Smoking Status: Former smoker second hand exposure: Yes alcohol intake: never substance use type: does not use HPI HPI HPI: 77-year-old female who is referred by Dr. Ayush Medina for consultation regarding a screening colonoscopy as her previous one was 10 years ago. She has a previous history of colon polyps and ischemic colitis as well as severe fibromyalgia. Among her other medicines she is on low-dose aspirin. Her previous colonoscopy performed by Dr. Obinna Velasco on January 31, 2013 identified nonbleeding internal hemorrhoids and diverticulosis and tortuosity of the colon. Random biopsies were obtained showing mild melanosis coli with no evidence of lymphocytic or collagenous colitis. It is of note that there was a exam performed February 22, 2012 colonoscopy suggesting a sessile polyp seen in the descending colon measuring 6 mm. I do not have pathology on that lesion. She lost her shock this past year. She otherwise is doing well. She goes to [employer] to exercise. She has had lifelong irritable bowel syndrome which she manages by taking MiraLAX. Occasionally takes some dicyclomine. No bright red blood per rectum or melena. She is enjoying a high quality of life ROS General General: Yes fatigue; No weight change, appetite, colon cancer, breast cancer or weakness HEENT HEENT: No difficulty swallowing, eye injury, eye surgery, swollen glands or hoarseness Endo Endocrine: Yes thyroid disease; No diabetes mellitus, thyroid cancer, Hair loss, heat intolerance or cold intolerance Skin Skin: No rash or changing moles Breast Breast: No left breast lump, right breast lump, nipple discharge, breast pain, abnormal mammogram, abnormal US or breast enlargement Musc Musculoskeletal: Yes back problems; No arthritis, rheumatoid arthritis, gout or joint pain Cardio Cardiovascular: Yes murmur; No pacemaker, heart disease, atrial fibrillation, high blood pressure, heart attack, heart stent, palpitations, shortness of breat with exertion or chest pain Psych Psychiatric: No depression, anxiety or hearing voices Resp Respiratory: Yes shortness of breath, No sleep apnea, No cough, No COPD, Yes asthma, Yes emphysema and No wheezing Gastro Gastrointestinal: Yes abdominal pain, No nausea or vomiting, No diarrhea, Yes constipation, No blood in stool, No acid reflux, Yes hemorrhoids, No ulcers, No gallbladder problem and No black,tarry stools Patric Hematologic: Yes blood thinners, No blood disorders, No bleeding, Yes anemia and No blood clots Neuro Neurologic: No system reviewed and no additional complaints, except as documented, No as per HPI, No abnormal gait, No abnormal hearing, No abnormal movements, No abnormal speech, No behavioral changes, No burning sensations, No confusion, No convulsions, No disequilibrium, No dizziness, No localized weakness, No frequent falls, No headache(s), No lack of coordination, No loss of vision, No memory loss, Yes numbness, No other visual disturbances, No radicular pain, No restless legs, No sensory deficit, No syncope, Yes tingling, No tremor(s), No weakness and No other Exam Const General: cooperative, comfortable and no acute distress [facility] Head: normal to inspection Eyes General: appearance normal, both eyes and all related structures Neck Neck: normal visual inspection Chest Chest palpation & inspection: normal inspection of the chest Resp Effort & Inspection: normal respiratory effort Auscultation: clear to auscultation bilaterally Cardio Rate: regular rate Rhythm: regular rhythm GI Inspection: normal to inspection Other: Soft, nontender, no hepatosplenomegaly Musc Cervical Spine: normal cervical lordosis Skin General: no rashes or lesions noted Neuro General: patient alert, patient awake and patient oriented x3 Extrem General: no calf tenderness Psych Appearance: grossly normal Assessment and Plan Assessment and Plan (1) Screening for intestinal cancer: Status: Acute Plan: Patient is enjoying a high quality of life. She has had a remote history of colon polyp. This was 10 years ago. I do recommend to her colonoscopy with possible biopsy or polypectomy as indicated. We will have her hold her aspirin for 5 days preprocedure. She is intolerant to GoLytely so we will utilize some MiraLAX bowel prep. I do anticipate monitored anesthesia care. I appreciate the opportunity of assisting with the surgical management. Copy: Dr. Auysh Espinal M.D., F.A.C.S. The patient was seen in the emergency room for complaint of dyspnea on exertion. She underwent a complete workup. There were no acute findings and she has remained stable since. She has no other change in her history and physical at this time. Since her office visit she has had a urinary tract infection that was treated with antibiotics she has had a kidney stone she has had a workup for shortness of breath dyspnea which was felt to be exacerbation of COPD and she has been treated with antibiotics for sinus infection. That did delay her proceeding with her colonoscopy. At this time she has no complaints. She is feeling extraordinarily well. She goes to [employer] 4 times a week. She has no chest pain shortness of breath no abdominal pain no bright red blood per rectum or melena and her clinical exam is stable. We will proceed with colonoscopy with possible biopsy or polypectomy as indicated. Ravindra Espinal M.D., F.A.C.S. t
[2023-07-22] MEDS: Lactated Ringers 1,000 ML 15 ML IV (08:24)
--- NOTE | 2023-07-22 09:00 | COLBX_PTH ---
PATHOLOGY RESULTS PATIENT: HANDY VEGA LOC: EN U#:[id number] AGE/SX: 77/F ROOM: RE07/22/[address]: Dr. Ravindra Espinal MD : 1945 BED: DIS: 07/22/2023 SPEC #: [id number] RECD: 07/22/23 12:45 STATUS: AGUSTIN TAPIA #: [id number] RICHA: 07/22/23 09:[address]: Ravindra Espinal DEPT: SURGICAL PATHOLOGY RECD BY: Alysia Saxena ENTERED: 07/22/23 12:46 SP TYPE: COLON BX OTHR DR: Dr. Ayush Medina MD Tissues: Sigmoid colon biopsy Procedures: Surgery Specimen Level IV HEADER OPERATION: Colonoscopy with polypectomy PRE-OP DIAGNOSIS: Screening TISSUE SUBMITTED: Mid sigmoid polyp x2 MICROSCOPIC DIAGNOSIS Mid sigmoid colon polyp, biopsy: Fragments of colonic mucosa with focal hyperplastic change. AM:bernard 07/25/2023 MICROSCOPIC DESCRIPTION Slides are reviewed. GROSS DESCRIPTION Received in fixative is one container labeled with the patient's name and designated mid sigmoid polyp. The specimen consists of two irregular fragments of light feliciano soft tissue that in aggregate measure 1.0 x 0.5 x 0.1 cm. The specimen is totally submitted in one cassette. / SJ:bernard 07/22/2023 TC:3 CPT: 42010
--- NOTE | 2023-07-22 09:47 | OP.CCLET_ITS ---
07/22/2023 Ayush Medina [address] [facility] [address] [place] [address] Re : Colonoscopy procedure for Cherie Jimenez Dear Dr. Medina This procedure was performed on Saturday, July 22, 2023. My impressions and recommendations are as follows: Impressions : - Non-thrombosed external hemorrhoids, non-thrombosed internal hemorrhoids and internal hemorrhoids that prolapse with straining, but spontaneously regress to the resting position (Grade II) found on digital rectal exam. - Severe diverticulosis in the sigmoid colon and in the descending colon. There was no evidence of diverticular bleeding. - Two 2 to 3 mm polyps in the mid sigmoid colon, removed with a cold biopsy forceps. Resected and retrieved. Recommendations : - Await pathology results. - Repeat colonoscopy is not recommended due to current age (66 years or older) for screening purposes. This examination was extraordinarily difficult secondary to the tortuosity of the sigmoid colon and severe diverticular disease - Telephone my office for pathology results in 1 week. - Continue present medications. My findings are described in the full procedure note, which is enclosed. If I can be of further assistance, please feel free to contact me at Doctor phone number(s): Work: . Sincerely, Ravindra Espinal MD 07/22/2023 9:46:30 AM This report has been signed electronically.
--- NOTE | 2023-07-22 09:47 | OP.COLON_ITS ---
Patient Name: Cherie Jimenez Procedure Date: 07/22/2023 8:26 AM Date of : 1945 Age: 77 Procedure: Colonoscopy Indications: Screening for colorectal malignant neoplasm, High risk colon cancer surveillance: Personal history of colonic polyps Providers: Ravindra Espinal MD Referring MD: Ayush Medina Medicines: See the Anesthesia note for documentation of the administered medications Patient Profile: Last Colonoscopy: 10 years ago. Complications: No immediate complications. Procedure: Pre-Anesthesia Assessment: - Prior to the procedure, a History and Physical was performed, and patient medications and allergies were reviewed. The patient's tolerance of previous anesthesia was also reviewed. The risks and benefits of the procedure and the sedation options and risks were discussed with the patient. All questions were answered, and informed consent was obtained. Prior Anticoagulants: The patient has taken no anticoagulant or antiplatelet agents. ASA Grade Assessment: II - A patient with mild systemic disease. After reviewing the risks and benefits, the patient was deemed in satisfactory condition to undergo the procedure. After I obtained informed consent, the scope was passed under direct vision. Throughout the procedure, the patient's blood pressure, pulse, and oxygen saturations were monitored continuously. The adult colonoscope was introduced through the anus and advanced to the cecum, identified by appendiceal orifice and ileocecal valve. The colonoscopy was technically difficult and complex due to multiple diverticula in the colon. The patient tolerated the procedure well. The quality of the bowel preparation was good. The ileocecal valve and the appendiceal orifice were photographed. Scope In: 9:05:23 AM Scope Withdrawal Time 0 hours 8 minutes 58 seconds Scope Out: 9:39:45 AM Total Procedure Duration Time 0 hours 34 minutes 22 seconds Findings: The digital rectal exam findings include non-thrombosed external hemorrhoids, non-thrombosed internal hemorrhoids and internal hemorrhoids that prolapse with straining, but spontaneously regress to the resting position (Grade II). Multiple medium-mouthed diverticula were found in the sigmoid colon and descending colon. There was no evidence of diverticular bleeding. Two sessile polyps were found in the mid sigmoid colon. The polyps were 2 to 3 mm in size. These polyps were removed with a cold biopsy forceps. Resection and retrieval were complete. Impression: - Non-thrombosed external hemorrhoids, non-thrombosed internal hemorrhoids and internal hemorrhoids that prolapse with straining, but spontaneously regress to the resting position (Grade II) found on digital rectal exam. - Severe diverticulosis in the sigmoid colon and in the descending colon. There was no evidence of diverticular bleeding. - Two 2 to 3 mm polyps in the mid sigmoid colon, removed with a cold biopsy forceps. Resected and retrieved. Recommendation: - Await pathology results. - Repeat colonoscopy is not recommended due to current age (66 years or older) for screening purposes. This examination was extraordinarily difficult secondary to the tortuosity of the sigmoid colon and severe diverticular disease - Telephone my office for pathology results in 1 week. - Continue present medications. Procedure Code(s): --- Professional --- 03598, Colonoscopy, flexible; with biopsy, single or multiple Diagnosis Code(s): --- Professional --- Z12.11, Encounter for screening for malignant neoplasm of colon Z86.010, Personal history of colonic polyps K64.1, Second degree hemorrhoids K64.4, Residual hemorrhoidal skin tags D12.5, Benign neoplasm of sigmoid colon K57.30, Diverticulosis of large intestine without perforation or abscess without bleeding CPT copyright 2021 [employer]. All rights reserved. The codes documented in this report are preliminary and upon instructor creeler review may be revised to meet current compliance requirements. Ravindra Espinal MD 07/22/2023 9:46:30 AM This report has been signed electronically. Number of Addenda: 0 Note Initiated On: 07/22/2023 8:26 AM
== END 2023-07-22 11:42 | disposition home or self-care (01) ==
LOC: EN 08:00 → AC 08:00
PROVIDERS: PCP Family Medicine; Referring Provider Family Medicine; Visit Provider Surgery
PROC: 0DJD8ZZ Inspection of Lower Intestinal Tract, Via Natural or Artificial Opening Endoscopic (ICD-10-PCS; CPT 45378; principal; 2023-07-22 08:55)
DX: Z12.11 Encounter for screening for malignant neoplasm of colon (principal); J44.9 Chronic obstructive pulmonary disease, unspecified; K64.4 Residual hemorrhoidal skin tags; K64.1 Second degree hemorrhoids; K63.5 Polyp of colon; M79.7 Fibromyalgia; K58.9 Irritable bowel syndrome, unspecified; K57.30 Diverticulosis of large intestine without perforation or abscess without bleeding; E03.9 Hypothyroidism, unspecified; Z79.82 Long term (current) use of aspirin; Z79.899 Other long term (current) drug therapy; Z79.51 Long term (current) use of inhaled steroids; Z86.010 Personal history of colon polyps; Z87.891 Personal history of nicotine dependence; Z86.73 Personal history of transient ischemic attack (TIA), and cerebral infarction without residual deficits
CPT/HCPCS: 45380; 88305; J7120; J2405

== ENCOUNTER → 2023-09-22 | Outpatient (CLI) | payer MEDICARE, OTHER, SELFPAY ==
[2023-09-22 17:46] LABS: Absolute Lymphocyte Count 1.47 X10^3/uL (0.83-4.51); Absolute Neutrophil Count 4.8 X10^3/uL (2.0-7.7); Basophil# 0.06 X10^3/uL; Basophil% 0.9 % (0-1); Eosinophil# 0.13 X10^3/uL; Eosinophils% 1.9 % (0-5); Hematocrit 44.9 % (37-47); Hemoglobin 14.4 g/dL (12.0-15.0); Lymphocyte # 1.47 X10^3/ul (0.83-4.51); Lymphocyte % 21.2 % (19-41); Mean Corp Hgb Conc 32.1 g/dL (32-36); Mean Corpuscular Hgb 29.3 pg (27.0-32.0); Mean Corpuscular Volume 91.3 fL (81-99); Monocyte# 0.45 X10^3/uL; Monocyte% 6.5 % (0-10); NRBC Flagged by Analyzer 0 % (0-5); Neutrophil # 4.82 X10^3/uL (2.7-7.7); Neutrophil % 69.4 % (47-70); Platelet Count 248 K/mm3 (150-450); RBC Distribution Width CV 12.7 % (11.6-14.6); RBC Distribution Width SD 42.4 fl (35.1-43.9); Red Blood Count 4.92 M/mm3 (4.2-5.4); White Blood Count 6.9 K/mm3 (4.4-11.0)
[2023-09-22 18:11] LABS: Erythrocyte Sedimentation Rate 3 mm/hr (0-30)
[2023-09-22 18:32] LABS: ALB/GLOB Ratio 1.3 RATIO (0.9-2.4); AST(SGOT) 23 U/L (15-37); Alanine Aminotransfer ALT/SGPT 19 U/L (13-56); Albumin, Serum 3.8 g/dL (3.2-5.0); Alkaline Phosphatase 106 U/L (45-117); Anion Gap 5 (5-15); BUN 14 mg/dL (7-18); BUN/Creat Ratio 15.3 RATIO (10-20); CRP < 2.90 mg/L (0.0-3.0); Calcium,Total 9.9 mg/dL (8.5-10.1); Chloride 106 mmol/L (98-107); Creatinine, Serum 0.91 mg/dL (0.55-1.02); EST Glomerular Filtration Rate 63 mL/min (>60); Est Glom Filt Rate - Afr Amer 77 mL/min (>60); Globulin 2.9 g/dL (2.2-4.2); Glucose 92 mg/dL (74-106); Protein, Total 6.7 g/dL (6.4-8.2); Sodium Level 138 mmol/L (136-145)
[2023-09-24 11:10] LABS: Lyme Scn Total Ab w/Rflx Negative (Negative)
== END | disposition home or self-care (01) ==
LOC: MTLAB 12:44
PROVIDERS: PCP Family Medicine; Referring Provider Family Medicine; Visit Provider Family Medicine
DX: M25.50 Pain in unspecified joint (principal)
CPT/HCPCS: 36415; 80053; 85025; 85652; 86140; 86618

== ENCOUNTER → 2024-01-02 | Outpatient (CLI) | payer MEDICARE, OTHER, SELFPAY ==
--- NOTE | 2024-01-02 09:00 | RAD_ITS ---
STUDY: X-RAY - LUMBAR SPINE REASON FOR EXAM: Female, 78 years old. LOW BACK PAIN TECHNIQUE: 5 view(s) of the lumbar spine were obtained. COMPARISON: None FINDINGS: Normal lumbar lordosis. Mild dextroscoliosis centered at L4. 2 mm of anterolisthesis of L4 on L5. There is multilevel endplate spondylosis of the lumbar vertebrae. There is multi-level degenerative disc disease with multi-level disc space narrowing. There is multilevel facet hypertrophy. The soft tissue structures are unremarkable. RAD/L/S Spine Min 4 Views IMPRESSION: Mild dextroscoliosis with degenerative disc disease. MRI may be useful. Electronically Signed: Jorge Alfaro MD at 8:48 EDT ,
--- NOTE | 2024-01-02 09:00 | RAD_ITS ---
STUDY: X-RAY - CERVICAL SPINE REASON FOR EXAM: Female, 78 years old. Cervicalgia TECHNIQUE: 7 view(s) of the cervical spine were obtained. COMPARISON: CT 01/31/2021 FINDINGS: Normal anterior atlantoaxial articulation. Normal odontoid process. Normal cervical lordosis. 2 mm retrolisthesis of C5 on C6. Normal vertebral bodies and endplates. Focal disc space narrowing at C5/C6. Normal visualized intervertebral neuroforamina. The soft tissue structures are unremarkable. RAD/Cerv Spine Obl/Flex/Ext Comp IMPRESSION: Focal degenerative disc disease at C5-C6 with 2 mm retrolisthesis of C5 on C6. Electronically Signed: Jorge Alfaro MD at 8:50 EDT ,
== END | disposition home or self-care (01) ==
PROVIDERS: PCP Family Medicine; Referring Provider Family Medicine; Visit Provider Family Medicine
DX: M54.2 Cervicalgia (principal); M54.50 Low back pain, unspecified
CPT/HCPCS: 72052; 72110

== ENCOUNTER → 2024-01-10 | Outpatient (CLI) | payer MEDICARE, OTHER, SELFPAY ==
--- NOTE | 2024-01-10 09:56 | CDU_ITS ---
Reason For Study: Carotid bruit Rt. Velocities/BP Lt. Velocities/BP Prox CCA 68.3/11.6 cm/sec. Prox CCA 88.3/21.2 cm/sec. Mid CCA 67.4/15.4 cm/sec. Mid CCA 86.1/17.9 cm/sec. Dist CCA 70.2/17.3 cm/sec. Dist CCA 63/13.5 cm/sec. Prox ICA 54.1/11.6 cm/sec. Prox ICA 47.6/15.7 cm/sec. Mid ICA 78.7/23 cm/sec. Mid ICA 75.1/27.8 cm/sec. Dist ICA 59.8/15.4 cm/sec. Dist ICA 38.1/13.6 cm/sec. Rt. ICA/CCA = 1.17. Lt. ICA/CCA = 0.87. Prox ECA 78.7/12.6 cm/sec. Prox ECA 89.4/12.4 cm/sec. Rt. Vert. 41.3/13.3 cm/sec. Lt. Vert. 33/13 cm/sec. Right Extracranial There is homogeneous, smooth atherosclerotic plaque noted in the right common carotid artery. There is intimal thickening but no significant atherosclerotic plaque noted in the right internal carotid artery. There is heterogeneous, irregular atherosclerotic plaque noted in the right external carotid artery. Antegrade flow is noted in the right vertebral artery. Left Extracranial There is homogeneous, smooth atherosclerotic plaque noted in the left common carotid artery. There is heterogeneous, irregular atherosclerotic plaque noted in the left internal carotid artery. There is heterogeneous, irregular atherosclerotic plaque noted in the left external carotid artery. Antegrade flow is noted in the left vertebral artery. Procedure Carotid Duplex [id number]. This is a Carotid Duplex examination using B-mode, color flow and specral Doppler. Exam performed in department. VL/Carotid Duplex Ultrasound Interpretation Summary Normal right extracranial internal carotid. Mild (<50%) stenosis left extracranial internal carotid. Patent and antegrade vertebrals bilaterally. Ordering Physician: Ayush Medina Referring Physician: Ayush Medina Performed By: Latesha Snyder RVT
== END | disposition home or self-care (01) ==
PROVIDERS: PCP Family Medicine; Referring Provider Family Medicine; Visit Provider Family Medicine
DX: R09.89 Other specified symptoms and signs involving the circulatory and respiratory systems (principal)
CPT/HCPCS: 93880

== ENCOUNTER → 2024-03-27 | Outpatient (CLI) | payer MEDICARE, OTHER, SELFPAY ==
[2024-03-27 15:19] LABS: Erythrocyte Sedimentation Rate 17 mm/hr (0-30)
[2024-03-27 15:21] LABS: Absolute Lymphocyte Count 1.43 X10^3/uL (0.83-4.51); Absolute Neutrophil Count 5.2 X10^3/uL (2.0-7.7); Basophil# 0.04 X10^3/uL; Basophil% 0.5 % (0-1); Eosinophil# 0.19 X10^3/uL; Eosinophils% 2.5 % (0-5); Hematocrit 46.4 % (37-47); Hemoglobin 14.9 g/dL (12.0-15.0); Lymphocyte # 1.43 X10^3/ul (0.83-4.51); Lymphocyte % 18.9 % (19-41); Mean Corp Hgb Conc 32.1 g/dL (32-36); Mean Corpuscular Hgb 28.9 pg (27.0-32.0); Mean Corpuscular Volume 89.9 fL (81-99); Mean Platelet Vol. 11.3 fl (6.2-12.0); Monocyte# 0.65 X10^3/uL; Monocyte% 8.6 % (0-10); NRBC Flagged by Analyzer 0 % (0-5); Neutrophil # 5.22 X10^3/uL (2.7-7.7); Neutrophil % 69.2 % (47-70); Platelet Count 287 K/mm3 (150-450); RBC Distribution Width CV 12.5 % (11.6-14.6); RBC Distribution Width SD 41.2 fl (35.1-43.9); Red Blood Count 5.16 M/mm3 (4.2-5.4); White Blood Count 7.6 K/mm3 (4.4-11.0)
[2024-03-27 15:28] LABS: ALB/GLOB Ratio 1.1 RATIO (0.9-2.4); AST(SGOT) 14 U/L (15-37); Alanine Aminotransfer ALT/SGPT 18 U/L (13-56); Albumin, Serum 3.7 g/dL (3.2-5.0); Alkaline Phosphatase 146 U/L (45-117); Anion Gap 7 (5-15); BUN 17 mg/dL (7-18); CRP 3.32 mg/L (0.0-3.0); Chloride 104 mmol/L (98-107); Creatinine, Serum 1.06 mg/dL (0.55-1.02); EST Glomerular Filtration Rate 53 mL/min (>60); Est Glom Filt Rate - Afr Amer 64 mL/min (>60); Globulin 3.5 g/dL (2.2-4.2); Glucose 77 mg/dL (74-106); Potassium 4.2 mmol/L (3.5-5.1); Protein, Total 7.2 g/dL (6.4-8.2); Sodium Level 137 mmol/L (136-145); Thyroid Stim Hormone (TSH) 0.942 uIU/mL (0.358-3.740)
[2024-03-29 16:11] LABS: PROEL- A/G Ratio 1.3 (0.7-1.7); PROEL- Albumin 3.7 g/dL (2.9-4.4); PROEL- Alpha-1 Globulin 0.3 g/dL (0.0-0.4); PROEL- Alpha-2 Globulin 0.9 g/dL (0.4-1.0); PROEL- Beta Globulin 0.9 g/dL (0.7-1.3); PROEL- Gamma Globulin 0.6 g/dL (0.4-1.8); PROEL- Globulin, Total 2.8 g/dL (2.2-3.9); PROEL- TOTAL PROTEIN 6.5 g/dL (6.0-8.5); PROEL-M-Spike Not Observed g/dL (Not Observed)
[2024-03-29 19:07] LABS: ANTINUCLEAR ANTIBODIES DIRECT Negative (Negative); Anti-Nuclear Antibody Test Positive (.)
== END | disposition home or self-care (01) ==
LOC: MFPLAB 11:26
PROVIDERS: PCP Family Medicine; Visit Provider Family Medicine
DX: K58.9 Irritable bowel syndrome, unspecified (principal); R53.83 Other fatigue
CPT/HCPCS: 36415; 80053; 84165; 84443; 85025; 85652; 86038; 86140

== ENCOUNTER 2024-04-23 08:39 | Emergency (ER) | payer MEDICARE, OTHER, SELFPAY ==
[2024-04-23] VITALS (7 sets, daily range): BP systolic 128–153; BP diastolic 60–91; PULSE 37–87; RESP 16–18; TEMP 36.6–37.2; O2SAT 93–99; BMI 22.8
--- NOTE | 2024-04-23 09:02 | RAD_ITS ---
STUDY: X-RAY CHEST REASON FOR EXAM: Female, 78 years old. Sob TECHNIQUE: PA and lateral views of the chest. COMPARISON: Comparison is made with prior study dated June 13, 2023. FINDINGS: EKG electrodes are seen. There is hyperinflation of the lungs consistent with chronic obstructive lung disease (COPD). Stable mild increased markings at the lung bases suggestive of scarring. There is no demonstrated pleural abnormality. Normal size heart. Normal mediastinum and suki. Normal visualized pulmonary arteries. There is atherosclerotic calcification of the aortic arch with tortuosity. There is demineralization of the osseous structures. Normal visualized ribs, clavicles, and shoulders. There is no demonstrated abnormality of the visualized soft tissue structures of the upper abdomen. RAD/Chest PA and Lateral IMPRESSION: Hyperinflation. Stable increased markings at the lung bases suggestive of scarring. Electronically Signed: Audie Ramires MD at 10:05 EST ,
--- NOTE | 2024-04-23 09:02 | EKG12_ITS ---
Test Reason : Blood Pressure : */* mmHG Vent. Rate : 95 BPM Atrial Rate : 95 BPM P-R Int : 130 ms QRS Dur : 74 ms QT Int : 366 ms P-R-T Axes : 85 73 76 degrees QTcB Int : 459 ms Sinus rhythm with frequent Premature ventricular complexes Nonspecific ST abnormality Abnormal ECG Confirmed by BJ [employer], VJ ([id number]), subeditor EVANGELINA HUERTA ([id number]) on 04/24/2024 8:08:11 AM Referred By: Confirmed By: VJ LORENZO MD
--- NOTE | 2024-04-23 09:04 | ED.VIS.DYS ---
HPI History of Present Illness Chief Complaint: Shortness of Breath Informant: patient Narrative Narrative: 78-year-old female having episodes of dyspnea since yesterday evening, basically occurring with light exertion, which is abnormal for her. She does have a history of COPD. She has not been having a cough lately, she does not think she was wheezing when this occurred, and she denies having any chest discomfort or presyncope. Last night when it occurred it was her before bed, she laid down and had no issues and went to sleep. Whenever she got up in the middle of the night to get up or go to the bathroom, she was dyspneic. At 1 point she used her albuterol and felt like it helped. Within a minute or 2 of using it she felt nauseated/sick to her stomach, she did not vomit. 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 She denies having any cold symptoms lately, she had a runny nose and some congestion 2-3 weeks ago that went away and she has had no other symptoms since. She does not see cardiology for any problems. Her doctor follows her for a heart murmur. [facility] Medical History Wears glasses Wears hearing aid Cancer Post-menopausal History of steroid therapy Thyroid disease TIA (transient ischemic attack) History of IBS Former smoker Emphysema, unspecified Shortness of breath on exertion Tremor Neuropathy History of stress test History of echocardiogram History of irregular heartbeat rib removal mohs procedure Hearing loss Fatigue Hyperlipidemia Pernicious anemia Kidney stone Hypothyroidism IBS (irritable bowel syndrome) Migraines Fibromyalgia Bruises easily Squamous cell carcinoma Basal cell carcinoma (BCC) Hemangioma Lentigo Keratosis Other specified disorder of gallbladder Atypical chest pain Dyspnea on exertion GERD (gastroesophageal reflux disease) COPD (chronic obstructive pulmonary disease) Tobacco dependence in remission Pulmonary nodule PND (post-nasal drip) Acute bronchitis Hoarseness Acute pain of both ears Home Medications ?Medication ?Instructions ?Recorded ?Last Taken ?Type atorvastatin 10 mg tablet 10 mg PO DAILY 08/08/14 07/21/23 History biotin 10,000 mcg capsule 5,000 mcg PO DAILY 08/08/14 07/20/23 History folic acid 1 mg tablet 1 mg PO QODAY 08/08/14 07/20/23 History polyethylene glycol 3350 17 17 g PO DAILY PRN constipation 08/08/14 06/12/23 History gram/dose oral powder aspirin 81 mg tablet,delayed 81 mg PO DAILY 04/14/23 07/16/23 History release cyanocobalamin (vitamin B-12) 1,000 mcg IM QMONTH 06/13/23 07/16/23 History 1,000 mcg/mL injection solution (Dodex) glycerin-mineral oil-polycarbophil 1 ea vaginal .COMPLEX 06/13/23 06/12/23 History vaginal gel (Feminine Moisturizer and Lubricating(glyc-mnOil) vaginal gel) minoxidil 5 % topical foam 1 ea topical DAILY 06/13/23 06/12/23 History (Daylogic Minoxidil) calcium 500 mg (as 1 tab PO DAILY 07/20/23 07/20/23 History carbonate)-vitamin D3 3.125 mcg (125 unit) tablet cholecalciferol (vitamin D3) 25 25 mcg PO DAILY 07/20/23 07/20/23 History mcg (1,000 unit) capsule (Vitamin D3) dicyclomine 10 mg capsule 10 mg PO BID PRN abdominal pain 07/20/23 Unknown History vitamins A,C,N-eodd-xxjbqx 4,296 1 cap PO BID 07/20/23 07/20/23 History mcg-226 mg-90 mg capsule (ICaps AREDS) fluoride (sodium) 1.1 % dental applic PO 07/27/23 Unknown History cream (SF 5000 Plus) umeclidinium 62.5 mcg/actuation 1 inh inhalation Q24H COPD J44.9 12/05/23 Unknown Rx blister powder for inhalation #30 ea (Incruse Ellipta) albuterol sulfate 90 mcg/actuation 2 puff inhalation Q6H PRN 02/24/24 Unknown Rx aerosol inhaler (Ventolin HFA) shortness of breath or wheezing #1 device amitriptyline 10 mg tablet 5 - 30 mg PO QHS 04/23/24 Unknown History levothyroxine 75 mcg tablet 75 mcg PO DAILY 04/23/24 Unknown History metoprolol succinate 25 mg 25 mg PO DAILY #30 tabs 04/23/24 Unknown Rx tablet,extended release 24 hr (Toprol XL) Allergy/AdvReac Type Severity Reaction Status Date / Time metaxalone (From Skelaxin) Allergy Severe palpitations, Verified 04/23/24 08:41 tachycardia and itching adhesive Allergy NEEDS Verified 04/23/24 08:41 FOLLOW-UP amoxicillin trihydrate (From Allergy Unknown Verified 04/23/24 08:41 Augmentin) bacitracin (From Polysporin) Allergy Unknown Verified 04/23/24 08:41 polymyxin B sulfate (From Allergy Unknown Verified 04/23/24 08:41 Polysporin) potassium clavulanate (From Allergy Unknown Verified 04/23/24 08:41 Augmentin) propoxyphene napsylate (From AdvReac Nausea/Vom/ Verified 04/23/24 08:41 Darvocet-N 100) Diarrhea Family History Brother Cancer CAD (coronary artery disease) Heart disease Thyroid disorder Hypertension Father Myocardial infarction Heart disease Hypertension Seizures Sister Heart disease Hypertension Thyroid disorder Surgical History S/P tonsillectomy and adenoidectomy S/P Mohs surgery for basal cell carcinoma Hx laparoscopic cholecystectomy H/O foot surgery H/O lithotripsy History of appendectomy History of hysterectomy H/O cataract removal with insertion of prosthetic lens History of vitrectomy Social History Smoking Status: Former smoker second hand exposure: Yes alcohol intake: never substance use type: does not use ROS ROS ED Constitutional Constitutional ED: Denies chills or fever(s) Eyes Eyes: Denies change in vision or diplopia ENT ENT ED: Denies ear pain, rhinorrhea or sore throat Cardiovascular Cardiovascular: Reports other Details: I feel my heartbeat but denies any palpitations or skipping ; Denies chest pain or palpitations Respiratory/Chest Respiratory/Chest: Reports dyspnea; Denies cough Gastrointestinal Gastrointestinal: Reports nausea; Denies abdominal pain, diarrhea or vomiting Genitourinary Genitourinary ED: Denies dysuria or hematuria Musculoskeletal Musculoskeletal: Denies back pain or neck pain Integumentary Denies abscess or rash Neurologic Neurologic: Denies headache(s), paresthesias or weakness EXAM Physical Exam Const Vital Signs: 04/23/24 08:41 04/23/24 08:51 04/23/24 09:02 Temperature 98.6 F Temperature Source Oral Pulse Rate 37 L Respiratory Rate 18 Respiratory Effort Short of Breath Respiratory Depth Normal Respiratory Pattern Normal Blood Pressure 153/72 H Blood Pressure Mean 99 Pulse Ox 98 Oxygen Delivery Method Room Air Room Air Room Air 04/23/24 10:27 04/23/24 10:40 04/23/24 11:00 Temperature 98.9 F 98.7 F Temperature Source Oral Temporal Pulse Rate 78 80 87 Respiratory Rate 18 18 18 Respiratory Effort Respiratory Depth Respiratory Pattern Blood Pressure 131/60 H 140/91 H 131/86 H Blood Pressure Mean 83 107 101 Pulse Ox 94 95 94 Oxygen Delivery Method Room Air Room Air Room Air 04/23/24 12:00 Temperature 97.8 F Temperature Source Oral Pulse Rate 73 Respiratory Rate 18 Respiratory Effort Respiratory Depth Respiratory Pattern Blood Pressure 132/70 H Blood Pressure Mean 90 Pulse Ox 93 Oxygen Delivery Method Room Air Positive well nourished and well developed General Appearance ED: well developed and NAD HEENT Reports moist mucous membranes normocephalic and atraumatic Eyes PERRL and EOMs intact bilaterally Neck full ROM and supple Resp normal respiratory effort and clear to auscultation bilaterally Cardio Cardio Narrative: Soft systolic ejection murmur Rhythm: abnormal rhythm irregularly irregular GI non-tender and non-distended Auscultation: normoactive bowel sounds Palpation: soft Back/Spine no CVA tenderness General Back: other FROM Extremity normal to inspection General Extremety ED: Negative for edema, pulses abnormal or tenderness General Extremity: Negative for edema or pulses abnormal Neuro oriented x3, CN's II-XII intact bilaterally and no sensory deficits noted Sensorium / Orientation: awake and alert Motor Exam: strength 5/5 throughout Skin no rashes or lesions noted and no wounds MDM MDM MDM Narrative Medical decision making narrative: Patient was seen here in May she states it was also for similar dyspnea but she was hypoxic and diagnosed with a COPD exacerbation with a URI. I do not think she has that at this time, either. She is having frequent PVCs which were not noted then, and my concern is that these may be causing her symptoms. She had an echocardiogram earlier in year when she was admitted, it showed good EF, stage I diastolic dysfunction, focal aortic valve calcification. Other than the PVCs her EKG is otherwise normal and her troponin is well within normal limits after having symptoms all night. The rest of her labs are normal. Two-view chest x-ray on my interpretation is normal showing no effusion or pneumonia or CHF. She is having frequent PVCs to the point where her pulse is actually registering in the 30s. Electrically her heart rate is in the 90s. Therefore I am going to give her a dose of metoprolol to see if that suppresses the PVCs and increases her pulse makes her feel better with walking and in a couple hours we will repeat her troponin. The repeat returned negative as well. She is having much less ectopy on the monitor. Therefore I had her take a walk down the hallway and back and she feels 100% better without any dyspnea. She does not have severe COPD so my anticipation is that she will not have significant side effects from low-dose beta-nickolas. I discussed with Dr. Hodges, he agrees and recommends Toprol-XL 25 mg once daily and follow-up in the office. Patient is comfortable with that plan History & Record Review Additional record(s) reviewed:: Prior inpatient record Lab Data Attestation: I reviewed the patient's lab results. Labs: Laboratory Results - last 24 hr 04/23/24 04/23/24 09:25 11:33 WBC 6.4 RBC 5.01 Hgb 14.4 Hct 44.4 MCV 88.6 MCH 28.7 MCHC 32.4 RDW Std Deviation 43.7 RDW Coeff of Gildardo 13.5 Plt Count 239 MPV 10.9 Immature Gran % (Auto) 0.300 Neut % (Auto) 76.5 H Lymph % (Auto) 14.5 L [place] % (Auto) 6.9 Eos % (Auto) 1.3 Baso % (Auto) 0.5 Absolute Neuts (auto) 4.9 Absolute Lymphs (auto) 0.92 Nucleated RBC % 0 Sodium 142 Potassium 4.1 Chloride 109 H Carbon Dioxide 27.0 Anion Gap 6 BUN 14 Creatinine 1.02 Estim Creat Clear Calc 39.25 Est GFR (MDRD) Af Amer 67 Est GFR (MDRD) Non-Af 56 L BUN/Creatinine Ratio 13.7 Glucose 119 H Calcium 10.2 H Troponin I High Sens 11 12 Radiography Diagnostic Testing: Clinical Impression(s) from Imaging Studies Chest X-Ray 04/23/24 09:02 IMPRESSION: Hyperinflation. Stable increased markings at the lung bases suggestive of scarring. Electronically Signed: Audie Ramires MD at 10:05 EST , Rhythm Strip Rhythm Strip: Sinus Rhythm Rate: 80 Ectopy: PVC(s) (Frequent) EKG Initial EKG: Attestation: I personally reviewed and interpreted this EKG as follows: Interpretation: Sinus Rhythm and No Acute Injury Pattern Comments: Frequent PVCs. Otherwise normal intervals. Prominent inferior P waves. Prior: Unchanged (Except for current PVCs which is new) Management Discussion w/another healthcare provider: Cured Meats Supervisor (Cardiology) Discharge Plan Triage Chief Complaint: Shortness of Breath ED Provider: Pollo De La Torre Dx/Rx/DC Orders Clinical Impression: Dyspnea on exertion, Frequent unifocal PVCs Instructions: Premature Ventricular Contract Tx Prescriptions: New metoprolol succinate [Toprol XL] 25 mg tablet extended release 24 hr 25 mg PO DAILY Qty: 30 0RF No Action fluoride (sodium) [SF 5000 Plus] 1.1 % cream PO aspirin 81 mg tablet,delayed release (DR/EC) 81 mg PO DAILY atorvastatin 10 mg tablet 10 mg PO DAILY Patient Comments: once a day biotin 10,000 MCG capsule 5,000 mcg PO DAILY folic acid 1 mg tablet 1 mg PO QODAY Patient Comments: once a day polyethylene glycol 3350 17 gram/dose powder 17 g PO DAILY PRN (Reason: constipation) Patient Comments: as needed cholecalciferol (vitamin D3) [Vitamin D3] 25 mcg (1,000 unit) capsule 25 mcg PO DAILY Patient Comments: take 1 capsule by mouth once daily dicyclomine 10 mg capsule 10 mg PO BID PRN (Reason: abdominal pain) calcium carbonate-vitamin D3 500 mg-3.125 mcg (125 unit) tablet 1 tab PO DAILY ICaps AREDS 4,296 mcg-226 mg-90 mg capsule 1 cap PO BID Fem Moist andLub(glyc-min oil) Gel 1 ea vaginal .COMPLEX Rx Instructions: USES EVERY 3 DAYS minoxidil [Daylogic Minoxidil] 5 % foam 1 ea topical DAILY cyanocobalamin (vitamin B-12) [Dodex] 1,000 mcg/mL solution 1,000 mcg IM QMONTH levothyroxine 75 mcg tablet 75 mcg PO DAILY amitriptyline 10 mg tablet 5 - 30 mg PO QHS Incruse Ellipta 62.5 mcg/actuation blister with device 1 inh INHALATION Q24H Qty: 30 11RF albuterol sulfate [Ventolin HFA] 90 mcg/actuation HFA aerosol inhaler 2 puff INHALATION Q6H PRN (Reason: shortness of breath or wheezing) Qty: 1 3RF Primary Care Provider: Ayush Medina Referrals: Neftali Hodges MD [Med Staff - Active Staff] - As soon as possible Ayush Medina MD [Primary Care Provider] - Print Language: Setswana Disposition Disposition: Home, Self Care
[2024-04-23 09:37] LABS: Absolute Lymphocyte Count 0.92 X10^3/uL (0.83-4.51); Absolute Neutrophil Count 4.9 X10^3/uL (2.0-7.7); Basophil# 0.03 X10^3/uL; Basophil% 0.5 % (0-1); Eosinophil# 0.08 X10^3/uL; Eosinophils% 1.3 % (0-5); Hematocrit 44.4 % (37-47); Hemoglobin 14.4 g/dL (12.0-15.0); Lymphocyte # 0.92 X10^3/ul (0.83-4.51); Lymphocyte % 14.5 % (19-41); Mean Corp Hgb Conc 32.4 g/dL (32-36); Mean Corpuscular Hgb 28.7 pg (27.0-32.0); Mean Corpuscular Volume 88.6 fL (81-99); Mean Platelet Vol. 10.9 fl (6.2-12.0); Monocyte# 0.44 X10^3/uL; Monocyte% 6.9 % (0-10); NRBC Flagged by Analyzer 0 % (0-5); Neutrophil # 4.86 X10^3/uL (2.7-7.7); Neutrophil % 76.5 % (47-70); Platelet Count 239 K/mm3 (150-450); RBC Distribution Width CV 13.5 % (11.6-14.6); RBC Distribution Width SD 43.7 fl (35.1-43.9); Red Blood Count 5.01 M/mm3 (4.2-5.4); White Blood Count 6.4 K/mm3 (4.4-11.0)
[2024-04-23 09:55] LABS: Anion Gap 6 (5-15); BUN 14 mg/dL (7-18); BUN/Creat Ratio 13.7 RATIO (10-20); Calcium,Total 10.2 mg/dL (8.5-10.1); Chloride 109 mmol/L (98-107); Creatinine, Serum 1.02 mg/dL (0.55-1.02); EST Glomerular Filtration Rate 56 mL/min (>60); Est Glom Filt Rate - Afr Amer 67 mL/min (>60); Estimated Creatinine Clearance 39.25 ml/min; Glucose 119 mg/dL (74-106); Potassium 4.1 mmol/L (3.5-5.1); Sodium Level 142 mmol/L (136-145); Troponin-I HS 11 pg/mL (3.0-54.0)
[2024-04-23] MEDS: Metoprolol Tartrate 5 MG/5 ML Vial IV (11:11)
[2024-04-23 12:04] LABS: Troponin-I HS 12 pg/mL (3.0-54.0)
== END 2024-04-23 13:30 | disposition home or self-care (01) ==
PROVIDERS: Emergency Provider Emergency Medicine; PCP Family Medicine; Visit Provider Emergency Medicine
DX: R06.09 Other forms of dyspnea (principal); J44.9 Chronic obstructive pulmonary disease, unspecified; R07.89 Other chest pain; I49.3 Ventricular premature depolarization; G62.9 Polyneuropathy, unspecified; E78.5 Hyperlipidemia, unspecified; E03.9 Hypothyroidism, unspecified; K58.9 Irritable bowel syndrome, unspecified; K21.9 Gastro-esophageal reflux disease without esophagitis; M79.7 Fibromyalgia; Z88.1 Allergy status to other antibiotic agents; Z78.0 Asymptomatic menopausal state; Z88.0 Allergy status to penicillin; Z86.73 Personal history of transient ischemic attack (TIA), and cerebral infarction without residual deficits; Z79.82 Long term (current) use of aspirin; Z85.828 Personal history of other malignant neoplasm of skin; Z87.442 Personal history of urinary calculi; Z79.899 Other long term (current) drug therapy; Z79.890 Hormone replacement therapy; Z87.891 Personal history of nicotine dependence
CPT/HCPCS: 71046; 80048; 84484; 85025; 93005; 96374; 99284; A4216

== ENCOUNTER → 2024-05-03 | Outpatient (CLI) | payer MEDICARE, OTHER, SELFPAY ==
--- NOTE | 2024-05-03 10:53 | RAD_ITS ---
EXAM: XR CHEST, 2 VIEWS CLINICAL INDICATION: UPPER RESPIRATORY INFECTION TECHNIQUE: Frontal and lateral views of the chest. COMPARISON: April 23, 2024. June 13, 2023 showing advanced emphysematous change. There was low dose CT screening exam June 22, 2023. FINDINGS: LUNGS AND PLEURAL SPACES: The lungs are hyperinflated with some increased lucency throughout most of the right upper lung field, similar to prior exam, presumed advanced COPD. No confluent infiltrate or effusion. No pneumothorax. HEART: Unremarkable. Cardiac silhouette not enlarged. MEDIASTINUM: Central airways and mediastinal contour are unremarkable. BONES/JOINTS: Unremarkable. No acute fracture. SOFT TISSUES: Unremarkable. VASCULATURE: Mild peripheral calcification of the aortic arch is again noted. RAD/Chest PA and Lateral IMPRESSION: 1. Advanced COPD. 2. Emphysema is an independent risk factor for lung neoplasm. Recommendation: yearly low dose CT lung screening. 3. Prior low dose CT screening is provided from June 22, 2023. The next recommended screening is due in June 2024. Thank you. Electronically Signed: Angela Castillo MD at 2:02 EST ,
== END | disposition home or self-care (01) ==
LOC: MTRAD 10:52
PROVIDERS: PCP Family Medicine; Referring Provider Family Medicine; Visit Provider Family Medicine
DX: J06.9 Acute upper respiratory infection, unspecified (principal)
CPT/HCPCS: 71046

== ENCOUNTER → 2024-06-05 | Outpatient (CLI) | payer MEDICARE, OTHER, SELFPAY ==
--- NOTE | 2024-06-05 12:07 | STRESSREP ---
Stress Test Report Exercise myocardial perfusion stress test. 78-year-old lady with a history of premature ventricular complexes Stress protocol: Resting EKG demonstrates normal sinus rhythm with a rate of 63 bpm resting blood pressure is 122/70 mmHg. The patient exercised according to the regular Sushil protocol for a total duration of 7 minutes attaining a maximum heart rate of 120 bpm which was 84% of maximum predicted heart rate; the maximum workload was 10.1 metabolic equivalents. At rest there were no ST or T wave changes noted to suggest ischemia and at peak exercise upsloping ST changes only were noted which did not meet the criteria for ischemia. No clinical angina was noted the test was terminated due to the target heart rate being achieved/fatigue. The peak blood pressure was 154/68 mmHg. Rate-pressure product was 16,900. Myocardial perfusion protocol. 13 mCi of technetium 99m sestamibi was injected at rest. The patient exercised according to regular Sushil protocol for total duration of 7 minutes and at peak exercise 44 mCi of technetium 99m sestamibi was injected stress images were obtained stress and rest images were reconstructed in comparing the short axis vertical long and horizontal long axis. Gated images were also obtained. Perfusion SPECT analysis: Review of the stress images demonstrate normal uptake of tracer noted in all areas of the myocardium. The resting images similarly demonstrate normal uptake of tracer noted in all areas of the myocardium. No areas of reversibility are noted to suggest ischemia no previous infarct was noted. Gated SPECT analysis: The gated ejection fraction is over 80%. Conclusion: Normal exercise myocardial perfusion stress test at a high workload Preserved ejection fraction.
== END | disposition home or self-care (01) ==
PROVIDERS: PCP Family Medicine; Referring Provider Internal Medicine Cardiovascular Disease; Visit Provider Internal Medicine Cardiovascular Disease
DX: R00.2 Palpitations (principal); I49.3 Ventricular premature depolarization; R94.31 Abnormal electrocardiogram [ECG] [EKG]
CPT/HCPCS: 78452; 93017; 93225; 93226; A9500; A4216

== ENCOUNTER → 2024-06-22 | Outpatient (CLI) | payer MEDICARE, OTHER, SELFPAY ==
--- NOTE | 2024-06-22 08:27 | CT_ITS ---
EXAM: CT Chest, Lung Cancer Screening Without Intravenous Contrast CLINICAL INDICATION: TECHNIQUE: Axial computed tomography images of the chest without intravenous contrast using low dose (LDCT) lung cancer screening protocol. This CT exam was performed using one or more of the following dose reduction techniques: automated exposure control, adjustment of the mA and/or kV according to patient size, and/or use of iterative reconstruction technique. COMPARISON: CT Lung Cancer Screening dated 06/22/2023 FINDINGS: LUNGS AND PLEURAL SPACES: Lung emphysema/COPD. Cm nodule of the right upper lobe on axial image 43. 4 mm nodule of the right upper lobe on axial image 51. 2 mm nodule of the right upper lobe on axial image 87. This is new since the prior exam. 3 mm nodule of the right upper lobe on axial image 49. This is new since the prior exam. Bilateral apical scarring. Middle lobe atelectasis or scarring. No pneumothorax. No significant effusion. HEART: Unremarkable. No cardiomegaly. No significant pericardial effusion. No significant coronary artery calcifications. BONES/JOINTS: Unremarkable. No acute fracture. No dislocation. SOFT TISSUES: Unremarkable. VASCULATURE: Unremarkable. No thoracic aortic aneurysm. LYMPH NODES: Unremarkable. No enlarged lymph nodes. CT/Low Dose CT Lung Screening IMPRESSION: 1. New pulmonary nodules of the right upper lobe measuring up to 3 mm as above . The other pulmonary nodules are stable. 2. LUNG-RADS 3: Probably benign. Continue low-dose CT screening of the chest in 6 months is recommended. Reading [facility]
== END | disposition home or self-care (01) ==
LOC: CT 08:27
PROVIDERS: PCP Family Medicine; Referring Provider Internal Medicine Critical Care Medicine; Visit Provider Internal Medicine Critical Care Medicine
DX: F17.211 Nicotine dependence, cigarettes, in remission (principal)
CPT/HCPCS: 71271

== ENCOUNTER → 2024-07-18 | Outpatient (CLI) | payer MEDICARE, OTHER, SELFPAY ==
--- NOTE | 2024-07-18 07:02 | BD_ITS ---
PROCEDURE: DEXA BONE DENSITY STUDY REASON FOR EXAM: F, age 78 y/o . Postmenopausal. TECHNIQUE: DEXA scan of the lumbar spine and both hips. COMPARISON: Comparison is made with prior study dated December 19, 2018. FINDINGS: Lumbar Spine (L1-L4): g/cm2 (0.806)/T-score (-2.2)/Z-score (0.4) findings are suggestive of osteopenia with a high fracture risk. Left Femur Total: g/cm2 (0.760)/T-score (-1.5)/Z-score (0.5) Left Femoral Neck: g/cm2 (0.768)/T-score (-0.7)/Z-score (1.5) Right Femur Total: g/cm2 (0.732)/T-score (-1.7)/Z-score (0.3) Right Femoral Neck: g/cm2 (0.711)/T-score (-1.2)/Z-score (1.0) Right Forearm: g/cm2 (0.362)/T-score (-4.0)/Z-score (-1.2) Left Forearm: g/cm2 ( ) / T-score ( ) / Z-score ( ) BD/Dexa Bone Density Study IMPRESSION: The patient is considered osteoporotic as outlined below according to World Hea th Organization (WHO) criteria with a high fracture risk. There has been worsening of bone density since the previous exa mination. Reading Location: [place]
== END | disposition home or self-care (01) ==
LOC: OPBD 06:58
PROVIDERS: PCP Family Medicine
DX: E21.3 Hyperparathyroidism, unspecified (principal)
CPT/HCPCS: 77080

== ENCOUNTER → 2024-09-03 | Outpatient (CLI) | payer MEDICARE, OTHER, SELFPAY ==
[2024-09-03 11:51] LABS: CORTISOL AM 1.88 ug/dL (6.02-18.40)
[2024-09-04 14:08] LABS: Adrenocorticotropic Hormone 2.9 pg/mL (7.2-63.3); DHEA Sulfate 5.6 ug/dL (13.9-142.8)
== END | disposition home or self-care (01) ==
LOC: MTLAB 08:02
PROVIDERS: PCP Family Medicine; Referring Provider Family Medicine; Visit Provider Family Medicine
DX: R53.81 Other malaise (principal); R53.83 Other fatigue
CPT/HCPCS: 36415; 82024; 82533; 82627; 82626

== ENCOUNTER → 2024-09-13 | Outpatient (CLI) | payer MEDICARE, OTHER, SELFPAY ==
[2024-09-13 10:49] LABS: Absolute Lymphocyte Count 1.16 X10^3/uL (0.83-4.51); Absolute Neutrophil Count 5.9 X10^3/uL (2.0-7.7); Basophil# 0.04 X10^3/uL; Basophil% 0.5 % (0-1); Eosinophil# 0.16 X10^3/uL; Eosinophils% 2.1 % (0-5); Hematocrit 43.4 % (37-47); Hemoglobin 14.5 g/dL (12.0-15.0); Lymphocyte # 1.16 X10^3/ul (0.83-4.51); Lymphocyte % 14.9 % (19-41); Mean Corp Hgb Conc 33.4 g/dL (32-36); Mean Corpuscular Hgb 30.3 pg (27.0-32.0); Mean Corpuscular Volume 90.6 fL (81-99); Monocyte# 0.49 X10^3/uL; Monocyte% 6.3 % (0-10); NRBC Flagged by Analyzer 0 % (0-5); Neutrophil % 75.8 % (47-70); Platelet Count 261 K/mm3 (150-450); RBC Distribution Width CV 13.5 % (11.6-14.6); RBC Distribution Width SD 44.9 fl (35.1-43.9); Red Blood Count 4.79 M/mm3 (4.2-5.4); White Blood Count 7.8 K/mm3 (4.4-11.0)
[2024-09-13 11:05] LABS: ALB/GLOB Ratio 1.7 RATIO (0.9-2.4); AST(SGOT) 21 U/L (<=31); Alanine Aminotransfer ALT/SGPT 15 U/L (<=34); Alkaline Phosphatase 110 U/L (35-104); Anion Gap 11 (5-15); BUN 16 mg/dL (4-19); BUN/Creat Ratio 15.7 RATIO (10-20); Calcium,Total 9.6 mg/dL (7.6-11.0); Carbon Dioxide 22.5 mmol/L (21.0-32.0); Chloride 107 mmol/L (98-108); Creatinine, Serum 0.99 mg/dL (0.70-1.20); EST Glomerular Filtration Rate 58 (>60); Globulin 2.4 g/dL (2.2-4.2); Glucose 98 mg/dL (70-99); Potassium 4.3 mmol/L (3.3-5.1); Protein, Total 6.4 g/dL (5.9-8.4); Sodium Level 140 mmol/L (133-145); Total Bilirubin 0.62 mg/dL (0.00-1.30)
[2024-09-13 11:08] LABS: CRP < 3.00 mg/L (0.0-3.0)
== END | disposition home or self-care (01) ==
LOC: MFPLAB 08:34
PROVIDERS: PCP Family Medicine; Referring Provider Family Medicine; Visit Provider Family Medicine
DX: K52.9 Noninfective gastroenteritis and colitis, unspecified (principal)
CPT/HCPCS: 36415; 80053; 85025; 86140

== ENCOUNTER → 2024-11-06 | Outpatient (CLI) | payer MEDICARE, OTHER, SELFPAY ==
[2024-11-06 08:51] LABS: Bacteria 0 SEEN /hpf (None Seen); Mucous, Urine 0 SEEN /hpf (<or=2+); Red Blood Cells-Urine 0 SEEN /hpf (0-5); White Blood Cells 0 SEEN /hpf (0-5)
[2024-11-06 09:14] LABS: Absolute Lymphocyte Count 1.19 X10^3/uL (0.83-4.51); Absolute Neutrophil Count 5.6 X10^3/uL (2.0-7.7); Basophil# 0.05 X10^3/uL; Basophil% 0.7 % (0-1); Eosinophil# 0.18 X10^3/uL; Eosinophils% 2.4 % (0-5); Hemoglobin 14.4 g/dL (12.0-15.0); Lymphocyte # 1.19 X10^3/ul (0.83-4.51); Lymphocyte % 15.8 % (19-41); Mean Corp Hgb Conc 32.7 g/dL (32-36); Mean Corpuscular Hgb 30.2 pg (27.0-32.0); Mean Corpuscular Volume 92.2 fL (81-99); Mean Platelet Vol. 11.1 fl (6.2-12.0); Monocyte# 0.48 X10^3/uL; Monocyte% 6.4 % (0-10); NRBC Flagged by Analyzer 0 % (0-5); Neutrophil % 74.4 % (47-70); Platelet Count 229 K/mm3 (150-450); RBC Distribution Width CV 12.6 % (11.6-14.6); RBC Distribution Width SD 42.6 fl (35.1-43.9); Red Blood Count 4.77 M/mm3 (4.2-5.4); White Blood Count 7.5 K/mm3 (4.4-11.0)
[2024-11-06 09:44] LABS: ALB/GLOB Ratio 1.7 RATIO (0.9-2.4); AST(SGOT) 20 U/L (<=31); Alanine Aminotransfer ALT/SGPT 12 U/L (<=34); Albumin, Serum 3.9 g/dL (3.4-4.8); Alkaline Phosphatase 109 U/L (35-104); Anion Gap 12 (5-15); BUN 16 mg/dL (4-19); BUN/Creat Ratio 16.2 RATIO (10-20); Calcium,Total 9.2 mg/dL (7.6-11.0); Carbon Dioxide 24.1 mmol/L (21.0-32.0); Chloride 104 mmol/L (98-108); Creatinine, Serum 0.99 mg/dL (0.70-1.20); EST Glomerular Filtration Rate 58 (>60); Globulin 2.3 g/dL (2.2-4.2); Glucose 113 mg/dL (70-99); Potassium 4.2 mmol/L (3.3-5.1); Protein, Total 6.3 g/dL (5.9-8.4); Sodium Level 139 mmol/L (133-145); Total Bilirubin 0.69 mg/dL (0.00-1.30)
[2024-11-06 09:45] LABS: CRP < 3.00 mg/L (0.0-3.0); Lipase 33 U/L (13-75)
[2024-11-06 10:03] LABS: Color, Urine Yellow (Yellow); Glucose, Dipstick Normal (Normal); Ketone-Dipstick Negative (Negative); Leukocyte Esterase-Dipstick 25 /ul (Negative); Nitrite-Dipstick Negative (Negative); Occult Blood-Urine Negative /ul (Negative); Protein-Dipstick 15 mg/dl (Negative); Specific Gravity, Urine 1.015 (1.002-1.030); Urine Bilirubin Dipstick Negative (Negative); Urine Clarity Clear (Clear); Urine Urobilinogen Normal (Normal); Urine pH 6.5 (5.0 - 8.0)
[2024-11-06 10:10] LABS: Squamous Epithelial Cells - UA 0-5 SEEN /hpf (5-10)
== END | disposition home or self-care (01) ==
LOC: LAB 08:44
PROVIDERS: PCP Family Medicine; Referring Provider Family Medicine; Visit Provider Family Medicine
DX: R10.84 Generalized abdominal pain (principal)
CPT/HCPCS: 36415; 80053; 81001; 83690; 85025; 86140; 87086; 87088

== ENCOUNTER → 2024-11-07 | Outpatient (CLI) | payer MEDICARE, OTHER, SELFPAY ==
--- OUTSIDE RECORDS SUMMARY | 2024-11-07 07:25 | XMS RPT_ITS | CCD ---
Author Organization [facility] Care Team Providers Care Lcsw Name Role Phone Dr. Alyce Cantrell Primary Care Provider Dr. Alyce Cantrell Referring Provider Keyanna SCRIBING MACHINE OPERATOR, NADINE Fuller Attending Provider Dr. Alyce Cantrell Primary Care Provider Dr. Neftali Hodges Attending Provider Dr. Alyce Cantrell Primary Care Provider Dr. Alyce Cantrell Referring Provider Dr. Ravindra Espinal Attending Provider Dr. Stepan Newton Attending Provider Dr. Harsh Sauer Emergency Provider Dr. Emperatriz Zamorano Admit Provider Dr. Emperatriz Zamorano Other Provider Dr. Florentino Renee Attending Provider Dr. Florentino Renee Other Provider Dr. Ravindra Espinal Other Provider Dr. Alyce Cantrell Primary Care Provider [phone] Dr. Alyce Cantrell Referring Provider Dr. Ravindra Espinal Attending Provider Dr. Stepan Newton Attending Provider Dr. Harsh Sauer Emergency Provider Dr. Emperatriz Zamorano Admit Provider Dr. Emperatriz Zamorano Other Provider Dr. Florentino Renee Attending Provider Dr. Florentino Renee Other Provider Dr. Ravindra Espinal Other Provider Rohit NGO, Dave Nicholson Primary Care Provider Adam NGO, Alyce Castellon Primary Care Provider [phone] PROVIDER, UNKNOWN Referring Unavailable CANTRELL, ALYCE A Primary Care Unavailable PROVIDER, UNKNOWN Referring Unavailable CANTRELL, ALYCE A Primary Care Unavailable PROVIDER, UNKNOWN Referring Unavailable ADAM, ALYCE A Primary Care Unavailable Adam NGO, Dr. Peacock Primary Care Provider Wil NGO, Dr. Abad Attending Provider Wil NGO, Dr. Abad Emergency Provider Adam NGO, Dr. Peacock Attending Provider Adam NGO, Dr. Peacock Referring Provider Tracie NGO, Dr. Lindsay Attending Provider Tracie NGO, Dr. Lindsay Referring Provider Tracie NGO, Dr. Lindsay Other Provider Dr. Hossein Espino DO Attending Provider Dr. Hossein Espino DO Referring Provider [phone] Joelle Alvarado Attending Provider SCARLETT CABRERA Attending Provider SCARLETT CABRERA Referring Provider Dr. Alyce Cantrell MD Primary Care Provider Dr. Alyce Cantrell MD Referring Provider Adam NGO, Dr. Peacock Attending Provider Alyce Cantrell Primary Care Unavailable Cantrell, Alyce Referring Unavailable Alyce Ricketts Attending Unavailable Tracie, Neftali Consulting Unavailable Tracie, Neftali Referring Unavailable Cantrell, Alyce Primary Care Unavailable Tracie, Neftali Attending Unavailable Cantrell, Alyce Primary Care Unavailable Cantrell, Alyce Referring Unavailable Joelle Nieto Attending Unavailable Tracie, [place] Referring Unavailable Tracie, [place] Attending Unavailable Cantrell, Alyce Primary Care Unavailable Cantrell, Alyce Primary Care Unavailable Cantrell, Alyce Referring Unavailable Elizabeth Ingram Attending Unavailable Cantrell, Alyce Primary Care Unavailable Cantrell, Alyce Referring Unavailable Tracie, Neftali Attending Unavailable Cantrell, Aylce Primary Care Unavailable Tracie, Neftali Referring Unavailable Tracie, [place] Attending Unavailable Cantrell, Alyce Attending Unavailable Cantrell, Alyce Primary Care Unavailable Cantrell, Alyce Referring Unavailable Cantrell, Alyce Primary Care Unavailable Pollo De La Torre Attending Unavailable Hossein Espino Referring Unavailable Hossein Espino Attending Unavailable Cantrell, Alyce Primary Care Unavailable Cantrell, Alyce Primary Care Unavailable LYNETTE TAYLOR Referring Unavailable LYNETTE TAYLOR Attending Unavailable Cantrell, Alyce Primary Care Unavailable Cantrell, Alyce Referring Unavailable Cantrell, Alyce Attending Unavailable Cantrell, Alyce Referring Unavailable Cantrell, Alyce Attending Unavailable Cantrell, Alyce Primary Care Unavailable Tracie, Neftali Referring Unavailable Cantrell, Alyce Primary Care Unavailable Tracie, Neftali Attending Unavailable Cantrell, Alyce Attending Unavailable Cantrell, Alyce Primary Care Unavailable Cantrell, Alyce Referring Unavailable Cantrell, Alyce Attending Unavailable Cantrell, Alyce Primary Care Unavailable Cantrell, Alyce Attending Unavailable Cantrell, Alyce Primary Care Unavailable Cantrell, Alyce Referring Unavailable Cantrell, Alyce Attending Unavailable Cantrell, Alyce Primary Care Unavailable Cantrell, Alyce Referring Unavailable RANDA MEJÍA Admitting Unavailable RANDA MEJÍA Attending Unavailable CANTRELL, ALYCE A Primary Care Unavailable RANDA MEJÍA Referring Unavailable CANTRELL, ALYCE A Primary Care Unavailable RANDA MEJÍA Referring Unavailable CANTRELL, ALYCE A Primary Care Unavailable MEJÍARANDA CHACHA Referring Unavailable CANTRELL, ALYCE A Primary Care Unavailable MEJÍARANDAE Referring Unavailable CANTRELL, ALYCE A Primary Care Unavailable HERNANDEZ, DAVE K Primary Care Unavailable MILETI, SCARLETT Referring Unavailable MILETI, SCARLETT Attending Unavailable HERNANDEZ, DAVE K Primary Care Unavailable MILETI, SCARLETT Referring Unavailable HERNANDEZ, DAVE K Primary Care Unavailable MILETI, SCARLETT Referring Unavailable CANTRELL, ALYCE A Primary Care Unavailable NANCY GUADARRAMA Attending Unavailable MILETI, SCARLETT Referring Unavailable HERNANDEZ, DAVE K Primary Care Unavailable MILETI, SCARLETT Referring Unavailable HERNANDEZ, DAVE K Primary Care Unavailable MILETI, SCARLETT Referring Unavailable RANDA MEJÍA Attending Unavailable ALYCE CANTRELL Primary Care Unavailable SCARLETT CABRERA Referring Unavailable ALYCE CANTRELL Primary Care Unavailable RANDA MEJÍA Attending Unavailable SCARLETT CABRERA Attending Unavailable DAVE HERNANDEZ Primary Care Unavailable ALYCE CANTRELL Referring Unavailable Allergies Allergy Classification Reported Allergen(s) Allergy Type Date of Onset Reaction(s) Facility (18 sources) Amoxicillin; Translations: [amoxicillin trihydrate] Drug Allergy 06-16-19 22 Unknown, Diarrhea [facility] (17 sources) Bacitracin Drug Allergy 06-16-19 22 Unknown [facility] (20 sources) metaxalone; Translations: [METAXALONE] Drug Allergy 11-25-19 16 Other: See Comments [facility] (18 sources) Propoxyphene; Translations: [propoxyphene napsylate] Drug Allergy 06-16-19 22 Nausea/Vom/Anna rrhea [facility] (18 sources) polymyxin B sulfate; Translations: [polymyxin B sulfate] Allergy to substance 06-16-19 22 Unknown [facility] (18 sources) potassium clavulanate; Translations: [potassium clavulanate] Allergy to substance 06-16-19 22 Unknown [facility] (1 source) BANDAID Allergy to substance 06-16-19 Unknown [facility] Work Phone: (17 sources) Adhesive agent; Translations: [adhesive] Allergy to substance 12-17-19 22 NEEDS FOLLOW-UP, Swollen, red, broken skin: holter patches [facility] Comment on above: Holter Monitor patch es (20 sources) Acetaminophen / HYDROcodone; Translations: [HYDROCODONE-ACETAMI NOPHEN] Drug Allergy 10-07-19 [address] [facility] (20 sources) Adhesive Tape; Translations: [ADHESIVE TAPE (ROSINS)] Allergy to substance 02-21-[address] [facility] (20 sources) Amoxicillin / Clavulanate; Translations: [AMOXICILLIN-POT CLAVULANATE] Drug Allergy 10-18-[address] [facility] (20 sources) Bacitracin / Polymyxin B; Translations: [BACITRACIN-POLYMYXI N B] Drug Allergy 11-07-19 [address] [facility] (20 sources) Propoxyphene; Translations: [PROPOXYPHENE] Drug Allergy 02-21-[address] [facility] (2 sources) Acetaminophen Drug Allergy 07-18-19 25 Abd cramps/diarrhe a [facility] (2 sources) Codeine Drug Allergy 07-18-19 25 Nausea [facility] Comment on above: palpitations, dizzin ess (2 sources) cyclobenzaprine Drug Allergy 07-18-19 25 PT UNSURE OF REACTION [facility] (2 sources) Doxycycline Drug Allergy 07-18-19 25 Abd cramps/diarrhe a [facility] (2 sources) HYDROcodone Drug Allergy 07-18-19 25 Abd cramps/diarrhe a [facility] (2 sources) Nitrofurantoin Drug Allergy 07-18-19 25 Rash [facility] (2 sources) PARoxetine Drug Allergy 07-18-19 25 PT UNSURE OF REACTION [facility] (2 sources) Sertraline Drug Allergy 07-18-19 25 Abd cramps/diarrhe a [facility] (2 sources) Sulfamethoxazole Drug Allergy 07-18-19 25 Abd cramps/diarrhe a [facility] (2 sources) traMADol Drug Allergy 07-18-19 25 Abd cramps/diarrhe a [facility] (2 sources) Trimethoprim Drug Allergy 07-18-19 25 Abd cramps/diarrhe a [facility] (2 sources) varenicline Drug Allergy 07-18-19 25 Nausea [facility] Comment on above: headache; no appetit e (1 source) Acetaminophen Drug Allergy 09-09-19 25 [facility] Rep[facility] (1 source) Bacitracin Drug Allergy 09-09-19 [facility] (1 source) Codeine Drug Allergy 09-09-19 25 [facility] (1 source) cyclobenzaprine Drug Allergy 09-09-19 25 [facility] (1 source) Doxycycline Drug Allergy 09-09-19 [facility] (1 source) HYDROcodone Drug Allergy 09-09-19 [facility] (1 source) metaxalone Drug Allergy 09-09-19 25 [facility] (1 source) Nitrofurantoin Drug Allergy 09-09-19 25 [facility] (1 source) PARoxetine Drug Allergy 09-09-19 [facility] (1 source) Sertraline Drug Allergy 09-09-19 [facility] (1 source) Sulfamethoxazole Drug Allergy 09-09-19 [facility] (1 source) traMADol Drug Allergy 09-09-19 [facility] (1 source) Trimethoprim Drug Allergy 09-09-19 [facility] (1 source) varenicline Drug Allergy 09-09-19 [facility] Medications Current Medications Medication Drug Class(es) Dates Sig (Normalized) Sig (Original) ascorbic acid 113 mg / beta carotene 7160 mg / cuprous oxide 0.4 mg / dl-alpha tocopheryl acetate 100 unt / zinc oxide 17.4 mg oral tablet (12 sources) Vitamin C take 1 tablet by mouth once daily at breakfast vit A,C,S-Flmk-Giwgsa (PRESERVISION AREDS) 2,148 mcg-113 mg-45 mg-17.4mg tab Take 1 tablet by mouth daily with breakfast. Active aspirin 81 mg delayed release oral tablet (19 sources) Platelet Aggregation Inhibitor, Nonsteroidal Anti-inflammatory Drug Start: 04-14-2023 take 1 tablet by mouth once daily Aspirin 81 mg tablet,delayed release (DR/EC) Active 81 mg PO DAILY April 14, 2023 1:00am take 1 tablet by mouth once kareem y aspirin 81 mg cap Take 1 tablet by mouth once daily. Active atorvastatin 10 mg oral tablet (20 sources) HMG-CoA Reductase Inhibitor Start: 02-21-2004 take 1 tablet by mouth once daily LIPITOR 10MG TABLET Indications: Neoplasm of uncertain behavior of skin Take 10 mg by mouth once daily. 30 0 02/21/2004 Active biotin 5 mg oral capsule (20 sources) Start: 08-08-2014 take 5000 ug by mouth once daily biotin 5 mg caspule Take 5,000 mcg by mouth once daily. 08/08/2014 Active Start: 08-08-2014 Biotin 10,000 MCG capsule Active 5000 ug PO DAILY August 08, 2014 12:00am Start: 08-08-2014 take 5000 ug by mouth once alo ly Biotin Active 5000 MCG PO DAILY August 08, 2014 12:00am calcium carbonate 500 mg chewable tablet (2 sources) Start: 10-05-2024 take 500 mg by mouth every hour as needed calcium carbonate (TUMS) 500 mg chew Take 1 tablet by mouth every hour as needed (mouth or hand numbness or tingling). 10/05/2024 Active calcium carbonate 1250 mg / cholecalciferol 200 unt oral tablet (6 sources) Vitamin D Start: 10-05-2024 take 1 tablet by mouth three times daily calcium-carbonate- vitamin D3 500 mg-5 mcg (200 unit) per tablet Take 1 tablet by mouth three times a day. 10/05/2024 Active Start: 07-20-2023 Calcium Carbon ate-Vitamin D3 500 mg-3.125 mcg (125 unit) tablet Active 1 {tbl} PO DAILY July 20, 2023 1:00am Start: 07-20-2023 take 1 tablet by sheyla th once daily Calcium Carbonate-Vitamin D3 Active 1 TABLET PO DAILY July 20, 2023 1:00am cholecalciferol 0.025 mg oral capsule (20 sources) Vitamin D Start: 07-20-2023 Cholecalcifero l (Vitamin D3) [Cholecalciferol (Vitamin D3) 25 Mcg (1,000 Unit) Capsule] (Cholecalciferol (Vitamin D3) 25 Mcg (1,000 Unit) ) 25 mcg (1,000 unit) capsule Active 25 ug PO DAILY July 20, 2023 1:00am Start: 07-07-2016 take 1 tablet by sheyla th once daily cholecalciferol (VITAMIN D3) 50 mcg (2,000 unit) tablet Take 2,000 Units by mouth once daily. 07/07/2016 Active dicyclomine hydrochloride 10 mg oral capsule (20 sources) Anticholinergic Start: 07-20-2023 take 1 capsule by mouth twice daily as needed for pain Dicyclomine 10 mg capsule Active 10 mg PO TWICE A DAY as needed for abdominal pain July 20, 2023 1:00am Start: 04-14-2023 End: 06-13-2023 take 1 capsule by mouth three times daily Dicyclomine 10 mg capsule Discontinued 10 mg PO THREE TIMES A DAY April 14, 2023 1:00am June 13, 2023 4:22pm EASIVENT (18 sources) Start: 03-10-2021 EASIVENT 1 Dev ice one time only. 03/10/2021 Active Start: 03-10-2021 EASIVENT 1 Dev ice one time only. 0 03/10/2021 Active folic acid 1 mg oral tablet (20 sources) Start: 08-08-2014 take 1 tablet by mouth every other day Folic Acid 1 mg tablet Active 1 mg PO EVERY OTHER DAY August 08, 2014 12:00am Start: 02-11-2012 take 1 tablet by sheyla th once daily folic acid 1 mg tablet Take 1 tablet by mouth once daily. 0 02/11/2012 Active Glycerin-Min Oil-Polycarboph il (Fem Moist Andlub(Glyc-Min Oil)) gel (7 sources) Start: 06-13-2023 Glycerin-Min O il-Polycarbophil (Fem Moist Andlub(Glyc-Min Oil)) gel Active 1 NMA VAGINAL .COMPLEX June 13, 2023 1:00am USES EVERY 3 DAYS Start: 06-13-2023 Glycerin-Min O il-Polycarbophil (Fem Moist Andlub(Glyc-Min Oil)) gel Active 1 EACH VAGINAL .COMPLEX June 13, 2023 1:00am USES EVERY 3 DAYS Start: 06-13-2023 Glycerin-Min O il-Polycarbophil (Fem Moist Andlub(Glyc-Min Oil)) gel Active 1 EACH VAGINAL .COMPLEX June 13, 2023 12:00am USES EVERY 3 DAYS levoFLOXacin 750 mg oral tablet (20 sources) Quinolone Antimicrobial Start: 06-15-2023 Levofloxacin Active 750 MG PO EVERY 48 HOURS 3 3 June 15, 2023 12:00am Start: 07-05-2019 End: 04-14-2023 take 1 tablet by mouth once daily Levofloxacin 500 mg tablet Discontinued 500 mg PO DAILY July 05, 2019 1:00am April 14, 2023 2:33pm Start: 04-25-2018 End: 05-17-2018 take 1 tablet by mouth once daily Levofloxacin (Levaquin) 750 mg tablet Discontinued 750 mg PO DAILY April 25, 2018 1:00am May 17, 2018 8:24am Start: 04-22-2017 End: 04-29-2017 take 1 tablet by mouth every twenty-four hours Levofloxacin 500 mg tablet Discontinued 500 mg PO Q24H 7 April 22, 2017 1:00am April 28, 2017 1:00am April 29, 2017 1:06am 24 hr metoprolol succinate 25 mg extended release oral tablet (16 sources) beta-Adrenergic Nickolas Start: 04-23-2024 End: 05-30-2024 take 1 tablet by mouth once daily TOPROL XL 25 mg 24 hr tablet Take 25 mg by mouth once daily. 04/23/2024 Active minoxidil 50 mg/ml topical foam (20 sources) Arteriolar Vasodilator Start: 06-13-2023 Minoxid il (Daylogic Minoxidil) 5 % foam Active 1 NMA TOPICAL DAILY June 13, 2023 1:00am Minoxidil 5 % so ln Apply 1 application to affected area once daily. Active pantoprazole 40 mg delayed release oral tablet (2 sources) Proton Pump Inhibitor Start: 06-15-2023 take 40 mg by mouth once daily Pantoprazole Active 40 MG PO DAILY June 15, 2023 12:00am polyethylene glycol 3350 92269 mg powder for oral solution (20 sources) Osmotic Laxative Start: 08-08-2014 polyethylene glycol 3350 (MIRALAX, GLYCOLAX) 17 gram/dose powder Take 17 g by mouth as needed. 03/16/2016 Active predniSONE 20 mg oral tablet (20 sources) Start: 06-15-2023 take 40 mg by mouth once daily Prednisone Active 40 MG PO DAILY@0800 10 June 15, 2023 12:00am Start: 04-17-2018 End: 05-17-2018 Prednisone 10 mg tablet Discontinued 10 mg PO daily April 17, 2018 1:00am May 17, 2018 8:24am take 4 tabs for three days, then 3 tabs for three days, then 2 tabs for three days, then 1 tab for 3 days Start: 03-31-2018 End: 04-25-2018 take 3 tablets by mouth once daily at mealtime Prednisone 20 mg tablet Discontinued 60 mg PO daily March 31, 2018 1:00am April 25, 2018 2:45pm administer with food or milk Start: 03-31-2018 End: 04-25-2018 take 60 mg by mouth once daily at mealtime Prednisone Discontinued 60 MG PO daily March 31, 2018 1:00am April 25, 2018 2:45pm administer with food or milk Start: 03-16-2016 End: 04-22-2017 take 6 tablets by mouth once daily, then take 4 tablets by mouth once daily, then take 2 tablets by mouth once daily, then take 1 tablet by mouth once daily Prednisone 10 MG tablet Discontinued 10 mg PO DAILY 48 March 16, 2016 12:00am April 22, 2017 2:13pm 6 po qd x 3 days, 4 po qd x 3 days, 2 po qd x 3 days, 1 po qd x 3 days sodium fluoride 0.011 mg/mg toothpaste (2 sources) Start: 07-27-2023 Fluoride (Sodium) (Sf 5000 Plus) 1.1 % cream Active NMA PO July 27, 2023 12:00am Umeclidinium (20 sources) Anticholinergic Start: 07-17-2024 take 62.5 ug by inhalation every twenty-four hours Umeclidinium (Incruse Ellipta) 62.5 mcg/actuation blister with device Active 1 NMA INHALATION Q24H July 17, 2024 3:47pm Start: 12-05-2023 End: 07-17-2024 take 62.5 ug by inhalation every twenty-four hours Umeclidinium (Incruse Ellipta) 62.5 mcg/actuation blister with device Discontinued 1 NMA INHALATION Q24H December 05, 2023 11:17am July 17, 2024 3:48pm Start: 11-07-2023 End: 12-05-2023 take 62.5 ug by inhalation every twenty-four hours Umeclidinium (Incruse Ellipta) 62.5 mcg/actuation blister with device Discontinued 1 NMA INHALATION Q24H November 07, 2023 11:27am December 05, 2023 11:18am Start: 10-18-2023 End: 11-07-2023 take 62.5 ug by inhalation every twenty-four hours Umeclidinium (Incruse Ellipta) 62.5 mcg/actuation blister with device Discontinued 1 NMA INHALATION Q24H October 18, 2023 11:30am November 07, 2023 11:27am Start: 10-04-2023 End: 10-18-2023 take 62.5 ug by inhalation every twenty-four hours Umeclidinium (Incruse Ellipta) 62.5 mcg/actuation blister with device Discontinued 1 NMA INHALATION Q24H October 04, 2023 8:08am October 18, 2023 11:31am Start: 09-23-2022 End: 10-04-2023 take 62.5 ug by inhalation every twenty-four hours Umeclidinium (Incruse Ellipta) 62.5 mcg/actuation blister with device Discontinued 1 NMA INHALATION Q24H September 23, 2022 10:54am October 04, 2023 8:08am Start: 09-23-2022 take 62.5 ug by inha lation every twenty-four hours Umeclidinium (Incruse Ellipta) 62.5 mcg/actuation blister with device Active 1 INH INHALATION Q24H September 23, 2022 9:54am Start: 09-23-2022 take 62.5 ug by inha lation every twenty-four hours Umeclidinium (Incruse Ellipta) 62.5 mcg/actuation blister with device Active 1 INH INHALATION Q24H September 23, 2022 10:54am Start: 08-26-2021 End: 09-23-2022 take 62.5 ug by inhalation every twenty-four hours Umeclidinium (Incruse Ellipta) 62.5 mcg/actuation blister with device Discontinued 1 NMA INHALATION Q24H August 26, 2021 8:17am September 23, 2022 10:54am Start: 08-26-2021 End: 09-23-2022 take 62.5 ug by inhalation every twenty-four hours Umeclidinium (Incruse Ellipta) 62.5 mcg/actuation blister with device Discontinued 1 INH INHALATION Q24H August 26, 2021 7:17am September 23, 2022 9:54am Start: 08-26-2021 End: 09-23-2022 take 62.5 ug by inhalation every twenty-four hours Umeclidinium (Incruse Ellipta) 62.5 mcg/actuation blister with device Discontinued 1 INH INHALATION Q24H August 26, 2021 8:17am September 23, 2022 10:54am Start: 08-26-2021 take 62.5 ug by inha lation every twenty-four hours Umeclidinium (Incruse Ellipta) 62.5 mcg/actuation blister with device Active 1 INH INHALATION Q24H August 26, 2021 7:17am Start: 08-26-2021 take 62.5 ug by inha lation every twenty-four hours Umeclidinium (Incruse Ellipta) 62.5 mcg/actuation blister with device Active 1 INH INHALATION Q24H 3 August 26, 2021 8:17am Start: 01-29-2021 take 1 puff(s) by in halation once daily INCRUSE ELLIPTA 62.5 mcg/actuation inhaler Inhale 1 Puff as instructed once daily. 01/29/2021 Active Start: 07-24-2020 End: 08-26-2021 take 62.5 ug by inhalation every twenty-four hours Umeclidinium (Incruse Ellipta) 62.5 mcg/actuation blister with device Discontinued 1 NMA INHALATION Q24H 3 July 24, 2020 4:01pm August 26, 2021 8:17am Start: 07-24-2020 End: 08-26-2021 take 62.5 ug by inhalation every twenty-four hours Umeclidinium (Incruse Ellipta) 62.5 mcg/actuation blister with device Discontinued 1 INH INHALATION Q24H 3 July 24, 2020 3:01pm August 26, 2021 7:17am Start: 07-24-2020 End: 08-26-2021 take 62.5 ug by inhalation every twenty-four hours Umeclidinium (Incruse Ellipta) 62.5 mcg/actuation blister with device Discontinued 1 INH INHALATION Q24H 3 July 24, 2020 4:01pm August 26, 2021 8:17am Start: 07-24-2020 End: 07-24-2020 take 62.5 ug by inhalation every twenty-four hours Umeclidinium (Incruse Ellipta) 62.5 mcg/actuation blister with device Discontinued 1 NMA INHALATION Q24H 3 July 24, 2020 11:47am July 24, 2020 4:01pm Start: 07-24-2020 End: 07-24-2020 take 62.5 ug by inhalation every twenty-four hours Umeclidinium (Incruse Ellipta) 62.5 mcg/actuation blister with device Discontinued 1 INH INHALATION Q24H 3 July 24, 2020 10:47am July 24, 2020 3:01pm Start: 07-24-2020 End: 07-24-2020 take 62.5 ug by inhalation every twenty-four hours Umeclidinium (Incruse Ellipta) 62.5 mcg/actuation blister with device Discontinued 1 INH INHALATION Q24H 3 July 24, 2020 11:47am July 24, 2020 4:01pm Start: 07-11-2019 End: 07-24-2020 take 62.5 ug by inhalation every twenty-four hours Umeclidinium (Incruse Ellipta) 62.5 mcg/actuation blister with device Discontinued 1 NMA INHALATION Q24H 3 July 11, 2019 9:47am July 24, 2020 11:48am Start: 07-11-2019 End: 07-24-2020 take 62.5 ug by inhalation every twenty-four hours Umeclidinium (Incruse Ellipta) 62.5 mcg/actuation blister with device Discontinued 1 INH INHALATION Q24H 3 July 11, 2019 8:47am July 24, 2020 10:48am Start: 07-11-2019 End: 07-24-2020 take 62.5 ug by inhalation every twenty-four hours Umeclidinium (Incruse Ellipta) 62.5 mcg/actuation blister with device Discontinued 1 INH INHALATION Q24H 3 July 11, 2019 9:47am July 24, 2020 11:48am Start: 07-25-2018 End: 07-11-2019 take 62.5 ug by inhalation every twenty-four hours Umeclidinium (Incruse Ellipta) 62.5 mcg/actuation blister with device Discontinued 1 NMA INHALATION Q24H 3 July 25, 2018 10:19am July 11, 2019 9:47am Start: 07-25-2018 End: 07-11-2019 take 62.5 ug by inhalation every twenty-four hours Umeclidinium (Incruse Ellipta) 62.5 mcg/actuation blister with device Discontinued 1 INH INHALATION Q24H 3 July 25, 2018 9:19am July 11, 2019 8:47am Start: 07-25-2018 End: 07-11-2019 take 62.5 ug by inhalation every twenty-four hours Umeclidinium (Incruse Ellipta) 62.5 mcg/actuation blister with device Discontinued 1 INH INHALATION Q24H 3 July 25, 2018 10:19am July 11, 2019 9:47am Start: 07-25-2018 End: 07-25-2018 take 62.5 ug by inhalation every twenty-four hours Umeclidinium (Incruse Ellipta) 62.5 mcg/actuation blister with device Discontinued 1 NMA INHALATION Q24H 3 July 25, 2018 7:30am July 25, 2018 10:19am Start: 07-25-2018 End: 07-25-2018 take 62.5 ug by inhalation every twenty-four hours Umeclidinium (Incruse Ellipta) 62.5 mcg/actuation blister with device Discontinued 1 INH INHALATION Q24H 3 July 25, 2018 6:30am July 25, 2018 9:19am Start: 07-25-2018 End: 07-25-2018 take 62.5 ug by inhalation every twenty-four hours Umeclidinium (Incruse Ellipta) 62.5 mcg/actuation blister with device Discontinued 1 INH INHALATION Q24H 3 July 25, 2018 7:30am July 25, 2018 10:19am Start: 07-05-2018 End: 07-25-2018 take 62.5 ug by inhalation every twenty-four hours Umeclidinium (Incruse Ellipta) 62.5 mcg/actuation blister with device Discontinued 1 NMA INHALATION Q24H 30 July 05, 2018 4:17pm July 25, 2018 7:31am Start: 07-05-2018 End: 07-05-2018 take 62.5 ug by inhalation every twenty-four hours Umeclidinium (Incruse Ellipta) 62.5 mcg/actuation blister with device Discontinued 1 NMA INHALATION Q24H July 05, 2018 1:00am July 05, 2018 4:18pm Start: 07-05-2018 End: 07-05-2018 take 62.5 ug by inhalation every twenty-four hours Umeclidinium (Incruse Ellipta) 62.5 mcg/actuation blister with device Discontinued 1 INH INHALATION Q24H July 05, 2018 12:00am July 05, 2018 3:18pm Start: 07-05-2018 End: 07-05-2018 take 62.5 ug by inhalation every twenty-four hours Umeclidinium (Incruse Ellipta) 62.5 mcg/actuation blister with device Discontinued 1 INH INHALATION Q24H July 05, 2018 1:00am July 05, 2018 4:18pm vitamin b12 1 mg/ml injectable solution (20 sources) Vitamin B12 Start: 06-13-2023 inject 1000 ug by intramuscular injection every month cyanocobalamin 1,000 mcg/mL Inject 1,000 mcg intramuscularly once every month. 05/24/2024 Active Start: 08-08-2014 End: 06-13-2023 inject 1000 ug by intramuscular injection every month Cyanocobalamin (Vitamin B-12) 1,000 MCG/ML drops Discontinued 1000 ug IM EVERY MONTH August 08, 2014 12:00am June 13, 2023 4:25pm Start: 08-08-2014 End: 06-13-2023 inject 1000 ug by intramuscular injection every month Cyanocobalamin (Vitamin B-12) Discontinued 1000 MCG IM EVERY MONTH August 08, 2014 12:00am June 13, 2023 4:25pm Vitamins A,C,P-Hffd-Lrczli (Icaps Areds) 4,296 mcg-226 mg-90 mg capsule (4 sources) Start: 07-20-2023 Vitamins A,C,E -Zinc-Copper (Icaps Areds) 4,296 mcg-226 mg-90 mg capsule Active 1 NMA PO TWICE A DAY July 20, 2023 1:00am Start: 07-20-2023 take [address] [facility] twice daily Vitamins A,C,D-Biuq-Gbyqeq (Icaps Areds) 4,296 mcg-226 mg-90 mg capsule Active 1 CAP PO TWICE A DAY July 20, 2023 1:00am Start: 07-20-2023 take [address] [facility] twice daily Vitamins A,C,D-Ewsk-Wygfqd (Icaps Areds) 4,296 mcg-226 mg-90 mg capsule Active 1 CAP PO TWICE A DAY July 20, 2023 12:00am Completed/Discontinued Medications Medication Drug Class(es) Dates Sig (Normalized) Sig (Original) [id number] 200 actuat albuterol 0.09 mg/actuat metered dose inhaler (20 sources) beta2-Adrenergic Agonist Start: 03-10-2021 End: 02-24-2024 Albuterol Sulfate (Ventolin Hfa) 90 mcg/actuation HFA aerosol inhaler Discontinued 2 NMA INHALATION EVERY 6 HOURS as needed for shortness of breath or wheezing October 26, 2022 9:42am February 24, 2024 9:35am Start: 03-10-2021 End: 04-14-2023 take 1 puff(s) by inhalation every six hours Albuterol Sulfate (Ventolin Hfa) 90 mcg/actuation HFA aerosol inhaler Active 2 PUFF INHALATION EVERY 6 HOURS October 26, 2022 9:42am Start: 07-18-2018 End: 10-26-2022 Albuterol Sulfate (Ventolin Hfa) 90 mcg/actuation HFA aerosol inhaler Discontinued 2 NMA INHALATION EVERY 6 HOURS as needed for shortness of breath or wheezing July 18, 2018 5:05pm October 26, 2022 9:42am Start: 07-18-2018 End: 10-26-2022 take 1 puff(s) by inhalation every six hours Albuterol Sulfate (Ventolin Hfa) 90 mcg/actuation HFA aerosol inhaler Discontinued 2 PUFF INHALATION EVERY 6 HOURS July 18, 2018 5:05pm October 26, 2022 9:42am Start: 06-23-2018 End: 07-18-2018 Albuterol Sulfate (Ventolin Hfa) 90 mcg/actuation HFA aerosol inhaler Discontinued 2 NMA INHALATION EVERY 6 HOURS as needed for shortness of breath or wheezing June 23, 2018 1:00am July 18, 2018 5:06pm Start: 06-23-2018 End: 07-18-2018 take 1 puff(s) by inhalation every six hours Albuterol Sulfate (Ventolin Hfa) 90 mcg/actuation HFA aerosol inhaler Discontinued 2 PUFF INHALATION EVERY 6 HOURS June 23, 2018 1:00am July 18, 2018 5:06pm Start: 07-20-2017 End: 03-10-2021 Albuterol Sulfate 90 mcg/act uation HFA aerosol inhaler Discontinued 2 NMA INHALATION EVERY 6 HOURS as needed for shortness of breath January 19, 2018 10:29am March 10, 2021 12:37pm administer with spacer Start: 07-20-2017 End: 03-10-2021 take 1 puff(s) by inhalation every six hours Albuterol Sulfate Discontinued 2 PUFF INHALATION EVERY 6 HOURS January 19, 2018 10:29am March 10, 2021 12:37pm administer with spacer Start: 03-16-2016 End: 07-20-2017 Albuterol Sulfate 6.7 GM HFA aerosol inhaler Discontinued 6.7 g IH Q4H March 16, 2016 12:00am July 20, 2017 9:14am Start: 11-25-2015 take 2 puff(s) by in halation four times daily as needed for wheezing albuterol HFA (PROVENTIL HFA) 90 mcg/actuation inhaler Indications: Chronic obstructive pulmonary disease, unspecified COPD type (HCC) Inhale 2 Puffs as instructed four times daily as needed for Wheezing/Shortness of Breath. 1 Inhaler 5 11/25/2015 Active amitriptyline hydrochloride 10 mg oral tablet (2 sources) Tricyclic Antidepressant Start: 04-23-2024 End: 05-30-2024 take 5-30 mg by mouth at bedtime Amitriptyline 10 mg tablet Discontinued 5 - 30 mg PO AT BEDTIME April 23, 2024 1:00am May 30, 2024 10:03am 120 actuat budesonide 0.16 mg/actuat / formoterol fumarate 0.0045 mg/actuat metered dose inhaler (17 sources) Corticosteroid, beta2-Adrenergic Agonist Start: 02-20-2018 End: 04-25-2018 Budesonide-Formote rol (Symbicort) 160-4.5 mcg/actuation HFA aerosol inhaler Discontinued 2 NMA INHALATION TWICE A DAY February 20, 2018 12:00am April 25, 2018 2:46pm Start: 02-20-2018 End: 04-25-2018 take 1 puff(s) by inhalation twice daily Budesonide-Formoterol (Symbicort) 160-4.5 mcg/actuation HFA aerosol inhaler Discontinued 2 PUFF INHALATION TWICE A DAY February 20, 2018 12:00am April 25, 2018 2:46pm Diclofenac (17 sources) Nonsteroidal Anti-inflammatory Drug Start: 03-16-2016 End: 06-13-2023 Voltaren Discontinued 0 mg PO Q8H March 16, 2016 12:00am June 13, 2023 4:24pm Start: 03-16-2016 End: 06-13-2023 Voltaren Discontinued 0 MG P O Q8H March 16, 2016 12:00am June 13, 2023 4:24pm Start: 03-16-2016 End: 06-13-2023 Voltaren Discontinued 0 MG P O Q8H March 15, 2016 11:00pm June 13, 2023 3:24pm Start: 03-16-2016 Voltaren Activ e 0 MG PO Q8H March 15, 2016 11:00pm Start: 03-16-2016 Voltaren Activ e 0 MG PO Q8H March 16, 2016 12:00am 24 hr dilTIAZem hydrochloride 240 mg extended release oral capsule (20 sources) Calcium Channel Nickolas Start: 04-25-2018 End: 04-14-2023 take 1 capsule by mouth once daily Diltiazem Hcl 240 mg capsule,extended release 24 hr Discontinued 240 mg PO DAILY April 25, 2018 1:00am April 14, 2023 2:33pm Start: 02-20-2018 End: 04-25-2018 take 1 capsule by mouth once daily Diltiazem Hcl 180 mg capsule,extended release 24 hr Discontinued 180 mg PO DAILY February 20, 2018 12:00am April 25, 2018 2:55pm estrogens, conjugated (intermediate) 0.625 mg/ml vaginal cream (17 sources) Estrogen Start: 08-08-2014 End: 06-13-2023 Conjugated Estrogens 0.625 mg/gram cream Discontinued 1 APPLICATIO TOPICAL EVERY MONTH August 08, 2014 12:00am June 13, 2023 4:21pm Start: 08-08-2014 End: 06-13-2023 Conjugated Estrogens Discont inued 1 APPLICATIO TOPICAL EVERY MONTH August 08, 2014 12:00am June 13, 2023 4:21pm famciclovir 500 mg oral tablet (17 sources) Herpes Simplex Virus Nucleoside Analog DNA Polymerase Inhibitor Start: 03-16-2016 End: 04-14-2023 take 1 tablet by mouth three times daily Famciclovir 500 MG tablet Discontinued 500 mg PO THREE TIMES A DAY March 16, 2016 12:00am April 14, 2023 2:33pm famotidine 20 mg oral tablet (16 sources) Histamine-2 Receptor Antagonist End: 09-26-2024 famotidine (PEPCID AC ORAL) Take 20 mg by mouth as needed. 09/26/2024 Discontinued 30 actuat fluticasone furoate 0.1 mg/actuat / vilanterol 0.025 mg/actuat dry powder inhaler (20 sources) Corticosteroid, beta2-Adrenergic Agonist Start: 06-08-2017 End: 02-20-2018 take 1 dose by inhalation once daily Fluticasone Furoate-Vilanterol 1 EACH blister with device Discontinued 1 NMA INHALATION DAILY 3 June 08, 2017 9:48am February 20, 2018 10:38am Start: 03-16-2016 End: 02-20-2018 take 1 dose by inhalation once daily Fluticasone Furoate-Vilanterol 1 EACH blister with device Discontinued 1 NMA IH DAILY March 16, 2016 12:00am June 08, 2017 9:49am levothyroxine sodium 0.05 mg oral tablet (20 sources) l-Thyroxine Start: 04-14-2023 End: 04-23-2024 Levothyroxine 50 mcg tablet Discontinued 75 ug PO DAILY April 14, 2023 2:33pm April 23, 2024 11:59am Start: 04-14-2023 take 75 ug by mouth once daily Levothyroxine Active 75 MCG PO DAILY April 14, 2023 2:33pm Start: 01-07-2021 take 1 tablet by sheyla th once daily levothyroxine (SYNTHROID) 75 mcg tablet Take 75 mcg by mouth once daily. 01/07/2021 Active Start: 08-08-2014 End: 04-14-2023 take 1 tablet by mouth once daily Levothyroxine 50 MCG tablet Discontinued 50 ug PO DAILY August 08, 2014 12:00am April 14, 2023 2:35pm 10 ml lidocaine hydrochloride 10 mg/ml injection (2 sources) Antiarrhythmic, Amide Local Anesthetic Start: 07-06-2024 End: 07-06-2024 lidocaine (PF) 10 mg/mL (1 %) 1 mL injection (XYLOCAINE) Start: 07-06-2024 End: 07-06-2024 1 mL, Injection - FOR ORTHO USE ONLY, ONCE, 1 dose, Starting on Tue07/06/24 at 1449, Until Tue07/06/24 at 1449 magnesium oxide 400 mg oral tablet (16 sources) Start: 07-07-2016 End: 09-26-2024 take 1 tablet by mouth once daily magnesium oxide (MAG-OX) 400 mg (241.3 mg magnesium) tablet Take 400 mg by mouth once daily. 07/07/2016 09/26/2024 Discontinued metaxalone 400 mg oral tablet (7 sources) Start: 04-14-2023 End: 06-13-2023 Metaxalone 400 mg tablet Discontinued mg PO April 14, 2023 1:00am June 13, 2023 4:23pm Start: 04-14-2023 End: 06-13-2023 Metaxalone Discontinued MG P O April 14, 2023 1:00am June 13, 2023 4:23pm nystatin [id number] unt/ml oral suspension (17 sources) Polyene Antifungal Start: 04-22-2017 End: 04-14-2023 take 1 mL by mouth three times daily Nystatin 100,000 unit/mL suspension Discontinued 5 mL PO THREE TIMES A DAY 250 April 22, 2017 1:00am April 14, 2023 2:42pm swish and swallow Start: 04-22-2017 End: 04-14-2023 take 1 mL by mouth three times daily Nystatin Discontinued 5 ML PO THREE TIMES A DAY 250 April 22, 2017 1:00am April 14, 2023 2:42pm swish and swallow promethazine hydrochloride 25 mg oral tablet (17 sources) Phenothiazine Start: 08-09-2014 End: 12-10-2015 take 1 tablet by mouth every six hours as needed for nausea Promethazine 25 MG tablet Discontinued 25 mg PO EVERY 6 HOURS NEEDED as needed for Nausea August 09, 2014 12:00am December 10, 2015 2:20pm sulfamethoxazole 800 mg / trimethoprim 160 mg oral tablet (7 sources) Dihydrofolate Reductase Inhibitor Antibacterial, Sulfonamide Antimicrobial Start: 06-07-2023 End: 06-15-2023 Sulfamethoxazole -Trimethoprim (Bactrim Ds) 800-160 mg tablet Discontinued 1 {tbl} PO TWICE A DAY June 07, 2023 1:00am June 15, 2023 12:20pm Tiotropium [place] (17 sources) Anticholinergic Start: 04-25-2018 End: 03-28-2019 take 2.5 ug by inhalation once daily Tiotropium [place] (Spiriva Respimat) 2.5 mcg/actuation mist Discontinued 2 NMA INHALATION daily April 25, 2018 1:00am March 28, 2019 10:17am Start: 04-25-2018 End: 03-28-2019 take 1 puff(s) by inhalation once daily Tiotropium [place] (Spiriva Respimat) 2.5 mcg/actuation mist Discontinued 2 PUFF INHALATION daily April 25, 2018 12:00am March 28, 2019 9:17am Start: 04-25-2018 End: 03-28-2019 take 1 puff(s) by inhalation once daily Tiotropium [place] (Spiriva Respimat) 2.5 mcg/actuation mist Discontinued 2 PUFF INHALATION daily April 25, 2018 1:00am March 28, 2019 10:17am tiZANidine 2 mg oral capsule (16 sources) Central alpha-2 Adrenergic Agonist Start: 12-10-2021 End: 04-14-2023 take 1 capsule by mouth at bedtime Tizanidine (Zanaflex) 2 mg capsule Discontinued 2 mg PO BEDTIME December 10, 2021 12:00am April 14, 2023 2:34pm 1 ml triamcinolone acetonide 40 mg/ml injection (2 sources) Corticosteroid Start: 07-06-2024 End: 07-06-2024 triamcinolone acetonide 40 mg injection (KeNALog 40) Start: 07-06-2024 End: 07-06-2024 40 mg, Injection - FOR ORTHO USE ONLY, ONCE, 1 dose, Starting on Tue07/06/24 at 1449, Until Tue07/06/24 at 1449 Problems Active Problems Problem Classification Problem Date Documented Da te Episodic/Chronic Abdominal pain (18 sources) Abdominal pain; Translations: [Unspecified abdominal pain] 10-17-2009 Episodic Acute bronchitis (17 sources) Acute bronchitis; Translations: [Acute bronchitis, unspecified] 04-22-2017 Episodic Calculus of urinary tract (20 sources) Kidney stone; Translations: [Calculus of kidney] Onset: 5 04-22-2017 Episodic Cardiac dysrhythmias (12 sources) Unifocal PVCs; Translations: [Ventricular premature depolarization] Onset: 5 05-01-2024 Chronic Cardiac dysrhythmias (2 sources) Palpitations; Translations: [Palpitations] Onset: 5 Episodic Chronic obstructive pulmonary disease and bronchiectasis (20 sources) Chronic obstructive lung disease; Translations: [Chronic obstructive pulmonary disease, unspecified] Onset: 5 Chronic Comment on above: INHALERS USED Coagulation and hemorrhagic disorders (15 sources) Easy bruising; Translations: [Spontaneous ecchymoses] 04-22-2017 Episodic Deficiency and other anemia (20 sources) Pernicious anemia; Translations: [Vitamin B12 deficiency anemia due to intrinsic factor deficiency] Onset: 5 04-22-2017 Episodic Deficiency and other anemia (1 source) Vitamin B12 deficiency anemia due to intrinsic factor deficiency; Translations: [Pernicious anemia] Onset: 5 Episodic Disorders of lipid metabolism (20 sources) Hyperlipidemia; Translations: [Hyperlipidemia, unspecified] Onset: 5 04-22-2017 Chronic Esophageal disorders (20 sources) Gastroesophageal reflux disease; Translations: [Gastro-esophageal reflux disease without esophagitis] 04-22-2017 Chronic Headache; including migraine (20 sources) Migraine; Translations: [Migraine, unspecified, not intractable, without status migrainosus] Onset: 2 04-22-2017 Chronic Heart valve disorders (2 sources) Heart murmur; Translations: [Cardiac murmur, unspecified] 05-21-2024 Episodic Malaise and fatigue (20 sources) Fatigue; Translations: [Other fatigue] Onset: 5 04-22-2017 Episodic Malignant neoplasm without specification of site (2 sources) Squamous cell carcinoma 04-22-2017 Chronic Mycoses (17 sources) Candidiasis of mouth; Translations: [Candidal stomatitis] 04-22-2017 Episodic Nausea and vomiting (5 sources) Postoperative nausea and vomiting; Translations: [Nausea with vomiting, unspecified] Onset: 5 09-26-2024 Episodic Neoplasms of unspecified nature or uncertain behavior (1 source) Monoclonal gammopathy of uncertain significance; Translations: [Monoclonal gammopathy] 09-12-2023 Chronic Noninfectious gastroenteritis (6 sources) Noninfective gastroenteritis and colitis, unspecified; Translations: [Colitis] Onset: 5 09-26-2024 Episodic Other and unspecified benign neoplasm (17 sources) Hemangioma; Translations: [Hemangioma unspecified site] 04-22-2017 Episodic Other circulatory disease (4 sources) History of cerebrovascular accident; Translations: [Personal history of transient ischemic attack (TIA), and cerebral infarction without residual deficits] Onset: 5 09-26-2024 Episodic Other circulatory disease (1 source) Personal history of transient ischemic attack (TIA), and cerebral infarction without residual deficits; Translations: [History of stroke] Onset: 5 Episodic Other connective tissue disease (20 sources) Fibromyalgia; Translations: [Fibromyalgia] 04-22-2017 Episodic Other connective tissue disease (1 source) Bilateral trochanteric bursitis; Translations: [Trochanteric bursitis, right hip] 12-23-2023 Episodic Other ear and sense organ disorders (20 sources) Hearing loss; Translations: [Unspecified hearing loss, unspecified ear] Onset: 5 04-22-2017 Chronic Comment on above: JOSÉ MIGUEL EARS, HEARING AI DS JOSÉ MIGUEL Other ear and sense organ disorders (1 source) Unspecified hearing loss, unspecified ear; Translations: [TONTO APACHE (hard of hearing)] Onset: 5 Chronic Other ear and sense organ disorders (5 sources) Otalgia; Translations: [Otalgia, bilateral] Episodic Other ear and sense organ disorders (12 sources) Pain of ear structure; Translations: [Otalgia, bilateral] 04-22-2017 Episodic Other endocrine disorders (11 sources) Hyperparathyroidism; Translations: [Hyperparathyroidism, unspecified] 07-06-2024 Chronic Other endocrine disorders (4 sources) Hyperparathyroidism, unspecified; Translations: [Hyperparathyroidism (HCC)] Onset: 5 Chronic Other gastrointestinal disorders (17 sources) Irritable bowel syndrome; Translations: [Irritable bowel syndrome without diarrhea] 04-22-2017 Chronic Other gastrointestinal disorders (1 source) Irritable bowel syndrome without diarrhea; Translations: [Irritable bowel syndrome, unspecified] Onset: 4 Chronic Other gastrointestinal disorders (4 sources) Irritable bowel syndrome characterized by constipation; Translations: [Irritable bowel syndrome with constipation] Onset: 5 09-26-2024 Chronic Other gastrointestinal disorders (1 source) Irritable bowel syndrome with constipation; Translations: [Irritable bowel syndrome with constipation] Onset: Chronic Other inflammatory condition of skin (17 sources) Itching ; Translations: [Pruritus, unspecified] 04-22-2017 Episodic Other lower respiratory disease (17 sources) Dyspnea on exertion; Translations: [Other forms of dyspnea] 04-22-2017 Episodic Other lower respiratory disease (17 sources) Cough; Translations: [Cough] 04-22-2017 Episodic Other lower respiratory disease (17 sources) Nodule of lung; Translations: [Solitary pulmonary nodule] 04-22-2017 Episodic Other lower respiratory disease (7 sources) History of chronic obstructive airway disease; Translations: [Personal history of other diseases of the respiratory system] 06-13-2023 Episodic Other lower respiratory disease (7 sources) Dyspnea; Translations: [Dyspnea, unspecified] 06-13-2023 Episodic Other lower respiratory disease (7 sources) Hypoxia; Translations: [Hypoxemia] 06-13-2023 Episodic Other lower respiratory disease (5 sources) Dyspnea, unspecified; Translations: [Other respiratory abnormalities] 06-13-2023 Episodic Other lower respiratory disease (5 sources) Hypoxemia; Translations: [Hypoxemia] 06-13-2023 Episodic Other lower respiratory disease (5 sources) Personal history of other diseases of the respiratory system; Translations: [Personal history of other diseases of respiratory system] 06-13-2023 Episodic Other lower respiratory disease (4 sources) Multiple nodules of lung; Translations: [Other nonspecific abnormal finding of lung field] 07-17-2024 Episodic Other lower respiratory disease (1 source) Other nonspecific abnormal finding of lung field; Translations: [Other nonspecific abnormal finding of lung field] Onset: 5 Episodic Other lower respiratory disease (1 source) Shortness of breath; Translations: [Shortness of breath] Onset: 5 Episodic Other nervous system disorders (4 sources) Small fiber neuropathy; Translations: [Polyneuropathy, unspecified] 09-12-2023 Chronic Other nervous system disorders (18 sources) Peripheral nerve disease ; Translations: [Polyneuropathy, unspecified] Onset: 2 02-11-2012 Chronic Other nervous system disorders (1 source) Polyneuropathy; Translations: [Polyneuropathy, unspecified] 09-26-2024 Chronic Other nervous system disorders (1 source) Polyneuropathy, unspecified; Translations: [Peripheral polyneuropathy] Onset: 2 Chronic Other nervous system disorders (4 sources) Tremor; Translations: [Tremor, unspecified] Onset: 5 09-26-2024 Episodic Other nervous system disorders (1 source) Tremor, unspecified; Translations: [Tremor] Onset: 5 Episodic Other non-traumatic joint disorders (3 sources) Multiple joint pain; Translations: [Pain in unspecified joint] 12-23-2023 Episodic Other nutritional; endocrine; and metabolic disorders (1 source) Hypercalcemia; Translations: [Hypercalcemia] 06-27-2024 Chronic Other nutritional; endocrine; and metabolic disorders (1 source) Hypercalcemia; Translations: [Hypercalcemia] Onset: 5 Chronic Other screening for suspected conditions (not mental disorders or infectious disease) (15 sources) Patient encounter status; Translations: [Encounter for screening for malignant neoplasm of intestinal tract, unspecified] Onset: 5 04-14-2023 Episodic Other skin disorders (17 sources) Keratosis; Translations: [Actinic keratosis] 04-22-2017 Episodic Other skin disorders (17 sources) Lentiginosis; Translations: [Other melanin hyperpigmentation] 04-22-2017 Episodic Other upper respiratory disease (17 sources) Hoarse; Translations: [Dysphonia] 04-22-2017 Episodic Residual codes; unclassified (17 sources) History of operative procedure on foot; Translations: [Other specified postprocedural states] 04-22-2017 Episodic Residual codes; unclassified (17 sources) Past history of procedure; Translations: [Other specified postprocedural states] 04-22-2017 Episodic Residual codes; unclassified (17 sources) History of vitrectomy; Translations: [Other specified postprocedural states] 04-22-2017 Episodic Comment on above: W/ MEMBRECTOMY, LEFT EYE Residual codes; unclassified (1 source) Intolerant of cold; Translations: [Other general symptoms and signs] 07-06-2024 Episodic Residual codes; unclassified (1 source) Other specified postprocedural states; Translations: [Post-operative nausea and vomiting] Onset: 5 Episodic Spondylosis; intervertebral disc disorders; other back problems (1 source) Degeneration of lumbar intervertebral disc; Translations: [Other intervertebral disc degeneration, lumbar region] 12-23-2023 Chronic Substance-related disorders (20 sources) Tobacco dependence in remission; Translations: [Nicotine dependence, unspecified, in remission] Onset: Chronic Thyroid disorders (20 sources) Hypothyroidism; Translations: [Hypothyroidism, unspecified] Onset: 2 04-22-2017 Chronic Unclassified (15 sources) Squamous cell carcinoma; Translations: [Squamous cell carcinoma] 04-22-2017 Unclassified (17 sources) Other specified disorder of gallbladder 04-22-2017 Past or Other Problems Problem Classification Problem Date Documented Da te Episodic/Chronic Conditions associated with dizziness or vertigo (3 sources) Dizziness; Translations: [Dizziness and giddiness] Onset: 05-30-2024 05-21-2024 Episodic Diabetes mellitus without complication (18 sources) Hyperglycemia; Translations: [Hyperglycemia, unspecified] Onset: 02-11-2012 02-11-2012 Episodic Headache; including migraine (18 sources) Headache; Translations: [Head pain] Onset: 02-11-2012 02-11-2012 Episodic Immunizations and screening for infectious disease (3 sources) Anti-nuclear factor positive; Translations: [Other specified abnormal immunological findings in serum] Onset: 06-27-2024 06-27-2024 Episodic Nonspecific chest pain (18 sources) Atypical chest pain; Translations: [Other chest pain] Onset: 05-30-2024 04-22-2017 Episodic Nutritional deficiencies (18 sources) Cobalamin deficiency; Translations: [Deficiency of other specified B group vitamins] Onset: 02-11-2012 02-11-2012 Episodic Other circulatory disease (1 source) Other specified symptoms and signs involving the circulatory and respiratory systems; Translations: [Other specified symptoms and signs involving the circulatory and respiratory systems] Onset: 01-18-2024 Episodic Other connective tissue disease (12 sources) Trochanteric bursitis of left hip; Translations: [Trochanteric bursitis, left hip] Onset: 07-20-2024 07-06-2024 Episodic Other connective tissue disease (1 source) Fibromyalgia; Translations: [Fibromyalgia] Onset: 11-06-2009 Episodic Other connective tissue disease (1 source) Trochanteric bursitis, left hip; Translations: [Trochanteric bursitis of left hip] Onset: 07-20-2024 Episodic Other gastrointestinal disorders (18 sources) Constipation; Translations: [Constipation, unspecified] Onset: 07-02-2005 07-02-2005 Episodic Other lower respiratory disease (6 sources) Other forms of dyspnea; Translations: [Other respiratory abnormalities] Onset: 05-30-2024 06-13-2023 Episodic Other nervous system disorders (18 sources) Paresthesia; Translations: [Paresthesia of skin] Onset: 02-11-2012 02-11-2012 Episodic Other nervous system disorders (18 sources) Loss of sense of smell; Translations: [Anosmia] Onset: 02-11-2012 02-11-2012 Episodic Other non-epithelial cancer of skin (20 sources) Basal cell carcinoma of skin; Translations: [Basal cell carcinoma of skin, unspecified] Onset: 05-12-2006 04-22-2017 Episodic Other non-traumatic joint disorders (2 sources) Pain in unspecified joint; Translations: [Pain in unspecified joint] Onset: 09-29-2023 Episodic Other skin disorders (18 sources) Alopecia; Translations: [Nonscarring hair loss, unspecified] Onset: 08-28-2014 08-28-2014 Episodic Other upper respiratory infections (18 sources) Posterior rhinorrhea; Translations: [Postnasal drip] Onset: 06-07-2024 04-22-2017 Episodic Spondylosis; intervertebral disc disorders; other back problems (1 source) Cervicalgia; Translations: [Cervicalgia] Onset: 01-18-2024 Episodic Unclassified (17 sources) mohs procedure 04-22-2017 Unclassified (17 sources) rib removal 04-22-2017 Results Test Name Value Interpretation Reference Range Facility Calcium SerPl-mCncon 10-22- 025 Calcium [Mass/Vol] 9.7 mg/dL Normal 8.5-10.2 [facility] Comment on above: Order Comment: Speci men Type: URINE SPECIMEN Ordering Facility: [facility] Address: [address] [place] [address] Performed By: #### 2 890-2 #### [facility] CLIA [id number] [address] [place] [address] [place] PTH-Intact SerPl-mCncon 06-0 Parathyrin.intact [Mass/Vol] 63 pg/mL Normal 15-65 [facility] Comment on above: Order Comment: Speci men Type: BLOOD SPECIMENOrdering Facility: [facility] Address: [address] [place] [address] Performed By: #### 2 731-8 ####[facility] [id number] [place] [address] [place] CNPNon 10-11-2024 CNPN Telephone (ENSUMN) ----- GARYCHERIE Bhakta ([id number]) 1945 F YBB Date Time Provider Department 10[facility]11[facility]24 [facility] During your visit today, we recorded the following information about you: Jayme Naik RN 10/11/2024 1:41 PM Signed Patient had Parathyroid exploration with excision of the left upper and left lower parathyroid glands, selective venous catheterization for parathyroid hormone measurement, and intraoperative neck ultrasound with Dr. Mejía on 10/05/24. She called to let Dr. Mejía know that she has been having abdominal pain. She stated that she has a h/o IBS. Her abdominal pain is around 6, her stool is soft, but she has no diarrhea. She is also nauseated and vomited once. Denies tingling sensations. Incision is dry, but still bruised. Patient was instructed to not take any calcium supplements today, and if she is feeling better tomorrow, to take it once a day until the post-op call. Also encouraged patient to stay hydrated. She has a prescription dicyclomine for cramps that she can take to relieve her abdominal pain. Reminded of post-op follow-up and instruction given to have labs checked prior to the appointment. Pt was thankful for the call. Jayme Naik RN Allergies As of Date: 10/11/2024 Noted Allergy Reaction ADHESIVE TAPE (ROSINS) 02/21/2004 2 - Rash POLYSPORIN (BACITRACIN-POLYMYXIN *11/06/2009 7 - Swelling AUGMENTIN (AMOXICILLIN-POT CLAVUL*10/17/2009 11 - Vomiting HYDROCODONE-ACETAMINOPHEN 10/06/2016 8 - GI Upset PROPOXYPHENE 02/21/2004 11 - Vomiting SKELAXIN (METAXALONE) 11/25/2015 14 - Other: See Comments Comments: Rapid heartbeat Date Reviewed: 10/06/2024 Reviewed by: Yessenia Jorgensen RN - Fully Assessed Reason for Visit: Patient Question [1477] Cmt: Abdominal pain Prescriptions as of 10/11/2024 - dcxwoye-kupuqobxm-stempek D3 500 mg-5 mcg (200 unit) per tablet Take 1 tablet by mouth three times a day. - calcium carbonate (TUMS) 500 mg chew Take 1 tablet by mouth every hour as needed (mouth or hand numbness or tingling). - cyanocobalamin 1,000 mcg/mL Inject 1,000 mcg intramuscularly once every month. - TOPROL XL 25 mg 24 hr tablet Take 25 mg by mouth once daily. - vit A,C,A-Kobw-Hncoia (PRESERVISION AREDS) 2,148 mcg-113 mg-45 mg-17.4mg tab Take 1 tablet by mouth daily with breakfast. - aspirin 81 mg cap Take 1 tablet by mouth once daily. - levothyroxine (SYNTHROID) 75 mcg tablet Take 75 mcg by mouth once daily. - biotin 5 mg caspule Take 5,000 mcg by mouth once daily. - INCRUSE ELLIPTA 62.5 mcg/actuation inhaler Inhale 1 Puff as instructed once daily. - EASIVENT 1 Device one time only. - cholecalciferol (VITAMIN D3) 50 mcg (2,000 unit) tablet Take 2,000 Units by mouth once daily. - polyethylene glycol 3350 (MIRALAX, GLYCOLAX) 17 gram/dose powder Take 17 g by mouth as needed. - dicyclomine (BENTYL) 10 mg capsule Take 10 mg by mouth before meals and at bedtime. - Minoxidil 5 % soln Apply 1 application to affected area once daily. - albuterol HFA (PROVENTIL HFA) 90 mcg/actuation inhaler Inhale 2 Puffs as instructed four times daily as needed for Wheezing/Shortness of Breath. - folic acid 1 mg tablet Take 1 tablet by mouth once daily. - LIPITOR 10MG TABLET Take 10 mg by mouth once daily. Problem List As Of Date 10/11/2024 Noted Resolved CONSTIPATION NOS [K59.00] 07/02/2005 PERS HX SKIN MALIGNANCY NEC [Z85.828] 05/12/2006 Abdominal Pain, Other Specified Site [R10.9] Fibromyalgia [M79.7] Tingling [R20.2] 02/11/2012 B12 deficiency [E53.8] 02/11/2012 Hypothyroid [E03.9] 02/11/2012 Peripheral neuropathy [G62.9] 02/11/2012 Head pain [R51.9] 02/11/2012 Migraine [G43.909] 02/11/2012 Loss of smell [R43.0] 02/11/2012 Hyperglycemia [R73.9] 02/11/2012 Alopecia [L65.9] 08/28/2014 Trochanteric bursitis of left hip [M70.62] 07/20/2024 HLD (hyperlipidemia) [E78.5] 09/25/2024 History of stroke [Z86.73] 09/26/2024 Tremor [R25.1] 09/26/2024 COPD (chronic obstructive pulmonary disease) (H*09/26/2024 PVC (premature ventricular contraction) [I49.3] 09/26/2024 Irritable bowel syndrome with constipation [K58*09/26/2024 Pernicious anemia [D51.0] 09/26/2024 Colitis [K52.9] 09/26/2024 History of kidney stones [Z87.442] 09/26/2024 Post-operative nausea and vomiting [R11.2, Z98.*09/26/2024 [place] (hard of hearing) [H91.90] 09/26/2024 Encounter Status:Closed by JAYME NAIK on 10/11/24 Normal [facility] Calcium SerPl-Madelaineon 10-06- 025 Calcium [Mass/Vol] 9.7 mg/dL Normal 8.5-10.2 [facility] Comment on above: Order Comment: Speci men Type: BLOOD SPECIMEN Ordering Facility: [facility] Address: [address] [place] [address] [place] [address] Performed By: #### 1 7861-6 #### [facility] [place] [id number] [address] [place] [id number] [place] PTH-Intact SerPl-mCncon 09-14 Parathyrin.intact [Mass/Vol] 32 pg/mL Normal 15-65 [facility] Comment on above: Order Comment: Speci men Type: BLOOD SPECIMEN Ordering Facility: [facility] Address: [address] [place] [address] Performed By: #### 2 731-8 #### [facility] [place] [id number] [address] [place] [id number] [place] ANES POSTPROC EVALon 025 ANES POSTPROC EVAL HNO ID: [id number] Author: GIN SAPP MD Service: Anesthesiology Author Type: Anesthesiologist Type: Anesthesia Postprocedure Evaluation Filed: 10/05/2024 10:03 Note Text: POST ANESTHESIA EVALUATION NOTE : 1945 Procedure Summary Date: 10/05/24 Room / Location: [place] [address] / OR Anesthesia Start: 50 Anesthesia Stop: 935 Procedure: PARATHYROIDECTOMY (Bilateral: Thyroid) Diagnosis: Hyperparathyroidism (HCC) (Hyperparathyroidism (HCC) [E21.3]) Surgeons: Randa Mejía MD Responsible Provider: Gin Sapp MD Anesthesia Type: general ASA Status: 3 Anesthesia Type: general Airway Type: ETT Last Vitals Vitals Value Taken Time BP 141/78 10/05/24 1000 Temp 10/05/24 1002 Pulse 64 10/05/24 1001 Resp 15 10/05/24 1001 SpO2 96 % 10/05/24 1001 Vitals shown include unfiled device data. Post Anesthesia Patient Status Patient Evaluation: PACU. PACU/ICU Patient Condition: stable. Anticipated Disposition: inpatient floor planned admission. Neurological Status: aware and responsive. Pulmonary Status: breathing comfortably on room air Airway Control: returned to baseline unsupported. Cardiovascular Status: stable. Pain Management: clinically adequate - multimodal analgesia pain management approach Postoperative Hydration: acceptable. Intraoperative Events: no significant anesthesia events Post Operative Nausea/Vomiting Status: no significant post operative nausea or vomiting Recommendation: continue current plan of care and further care per PACU/ICU/floor team. Anesthesia Observations No Documentation SIGNATURE: Gin Sapp MD PATIENT NAME: Cherie Jimenez DATE: October 05, 2024 TIME: 10:02 AM CSN: [id number] [facility] ANES PRE-OPon 10-05-2024 ANES PRE-OP HNO ID: [id number] Author: GIN SAPP MD Service: Anesthesiology Author Type: Anesthesiologist Type: Anesthesia Preprocedure Evaluation Filed: 10/05/2024 08:03 Note Text: ANESTHESIOLOGY DAY OF SURGERY NOTE : 1945 Procedure Information Date/Time: 10/05/24 09 Procedure: PARATHYROIDECTOMY (Bilateral: Thyroid) Location: MM OR07 / MM OR Surgeons: Randa Mejía MD Estimated body mass index is 23 kg/m? as calculated from the following: Height as of 09/26/24: 162.6 cm (5' 4). Weight as of 09/26/24: 60.8 kg (134 lb). Most recent hematocrit and potassium results: Hematocrit 44.9 07/25/2024 Potassium 4.0 07/25/2024 Relevant Problems ANESTHESIA (+) Post-operative nausea and vomiting CARDIO (+) Migraine (+) PVC (premature ventricular contraction) ENDO (+) Hypothyroid NEURO-PSYCH (+) Head pain (+) History of kidney stones (+) History of stroke (+) Migraine (+) Personal history of other malignant neoplasm of skin PULMONARY (+) COPD (chronic obstructive pulmonary disease) (HCC) I - PHYSICAL EVALUATION AIRWAY Patient intubated: No. Tracheostomy tube not present Mallampati: II. TM distance: <3 FB. Neck ROM: full ROM without neurological symptoms. Mouth opening: adequate. Short neck: no. Thick neck: no DENTAL Dental findings: teeth intact and chipped. Additional exam findings: yes. CARDIOVASCULAR Rhythm: regular Rate: normal PULMONARY Breath sounds clear to auscultation. II - ANESTHESIA PLAN ASA Score: 3 Anesthetic Plan: general Airway type: ETT The patient is not a current smoker. NPO Status: adequate Beta Nickolas Monitoring Plan Monitoring plan: Standard ASA. Post Procedure Analgesic Plan Postoperative analgesic plan: parenteral or oral opioids and multimodal analgesia. Informed Consent Anesthetic risks, benefits, alternatives, personnel and consent discussed: yes. Patient / Responsible Green Party agrees to proceed: yes Patient / Surrogate agrees to blood products: yes DNR status not reviewed with patient and/or family prior to surgery. Significant changes in the patient condition since the History and Physical, not otherwise documented in primary service progress note: no. Potential Anesthesia issues that may suggest increased risk of complications or contraindication to planned procedure: none. No vitals data found for the desired time range. Facility-Administered Medications as of 10/05/2024 Medication Dose Route Frequency acetaminophen 1,000 mg tab(s) (TYLENOL) 1,000 mg ORAL Pre-Op Once promethazine 12.5 mg tab(s) (PHENERGAN) 12.5 mg ORAL Pre-Op Once famotidine 20 mg injection (PEPCID) 20 mg INTRAVENOUS Pre-Op Once Outpatient Medications as of 10/05/2024 Medication Sig cyanocobalamin 1,000 mcg/mL Inject 1,000 mcg intramuscularly once every month. TOPROL XL 25 mg 24 hr tablet Take 25 mg by mouth once daily. vit A,C,A-Nioq-Cnljta (PRESERVISION AREDS) 2,148 mcg-113 mg-45 mg-17.4mg tab Take 1 tablet by mouth daily with breakfast. aspirin 81 mg cap Take 1 tablet by mouth once daily. levothyroxine (SYNTHROID) 75 mcg tablet Take 75 mcg by mouth once daily. biotin 5 mg caspule Take 5,000 mcg by mouth once daily. INCRUSE ELLIPTA 62.5 mcg/actuation inhaler Inhale 1 Puff as instructed once daily. EASIVENT 1 Device one time only. cholecalciferol (VITAMIN D3) 50 mcg (2,000 unit) tablet Take 2,000 Units by mouth once daily. polyethylene glycol 3350 (MIRALAX, GLYCOLAX) 17 gram/dose powder Take 17 g by mouth as needed. dicyclomine (BENTYL) 10 [...] Take 1 tablet by mouth once daily. LIPITOR 10MG TABLET Take 10 mg by mouth once daily. I have interviewed and examined the patient. I have reviewed the medical record and/or the pre-anesthesia evaluation, pertinent labs, and test results. This contains updated information obtained within 48 hours of Surgery/Procedure. SIGNATURE: Gin Sapp MD PATIENT NAME: Cherie Jimenez DATE: October 05, 2024 TIME: 8:03 AM CSN: [id number] [facility] BRIEF OP NOTon 10-05-2024 BRIEF OP NOT HNO ID: [id number] Author: KAUSHAL CENTENO MD Service: Endocrine Surgery Author Type: Physician Type: Brief Op Note Filed: 10/05/2024 09:25 Note Text: Brief Operative Note Patient Name: Cherie Jimenez LOG ID: [id number] Surgery/Procedure Date: 10/05/2024 Surgeon(s)/Proceduralist( s) and Fisher Line(s): Surgeons and Role: * Randa Mejía MD - Primary * Sheila Godinez MD - Resident - Assisting * Kaushal Centeno MD - Fellow Procedure(s): parathyroidectomy Incision/Procedure Start Time: 9:03 AM Incision Close/Procedure End Time: 9:23 AM Anesthesia: General Findings: all 4 glands visualized. Enlarged NORIS and LL parathyroid glands Input: Crystalloid: See anesthesia record Output: See anesthesia record Estimated Blood Loss: 10 mL Specimens: ID Type Source Tests Collected by Time Destination 1 : pre pth Blood Blood INTRAOPERATIVE PTH Randa Mejía MD 10/05/2024 9:08 AM 2 : post pth Blood Blood INTRAOPERATIVE PTH Randa Mejía MD 10/05/2024 9:16 AM A : left upper Tissue Parathyroid Gland, Left SURGICAL PATHOLOGY Randa Mejía MD 10/05/2024 9:09 AM B : left lower Tissue Parathyroid Gland, Left SURGICAL PATHOLOGY Randa Mejía MD 10/05/2024 9:15 AM Implants: * No implants in log * Drains: none Wound Classification: Class 1, operative wound clean, non-traumatic, with no inflammation encountered, no break in technique, gastrointestinal and genitor-urinary tracts not entered Pre-Op/Pre-Procedure Diagnosis: hyperparathyroidism Post-Op/Post-Procedure Diagnosis: same Post-Op Plan: Recover in PACU. SIGNATURE: Kaushal Centeno MD DATE: 10/05/24 TIME: 9:25 AM Normal [facility] INTRAOPERATIVE PTHon 025 INTRAOPERATIVE PTH 110 pg/mL [facility] Comment on above: Order Comment: Rahel can Type: BLOOD SPECIMEN Ordering Facility: [facility] Address: [address] [place] [address] Performed By: #### R IPTH #### [facility] CLIA [id number] [address] [place] [address] INTRAOPERATIVE PTH 185 pg/mL [facility] Comment on above: Order Comment: Specrolanda men Type: BLOOD SPECIMEN Ordering Facility: [facility] Address: [address] [place] [address] Performed By: #### R IPTH #### [facility] CLIA [id number] [address] [place] [address] OPERATIVE NOon 10-05-2024 OPERATIVE NO HNO ID: [id number] Author: RANDA MEJÍA MD Service: Endocrine Surgery Author Type: Physician Type: Operative Report Filed: 10/05/2024 15:14 Note Text: [facility] - Operative Report CHERIE JIMENEZ : 1945 AGE: 79. SEX: F PATIENT TYPE: A [facility] SVC: Surgical LOCATION: [facility] ATTENDING PHYSICIAN: Randa Mejía MD CSN NUMBER: [id number] DATE OF SURGERY/PROCEDURE: 10/05/2024 INCISION/PROCEDURE START TIME: 9:03 a.m. INCISION CLOSE/PROCEDURE END TIME: 9:23 a.m. PREOPERATIVE DIAGNOSIS: Primary hyperparathyroidism. POSTOPERATIVE DIAGNOSIS: Primary hyperparathyroidism. SURGEON: Randa Mejía MD MACHINE MOLDER SQUEEZE: 1. Kaushal Centeno MD. 2. Sheila Godinez MD. SURGERY/PROCEDURE: Parathyroid exploration with excision of the left upper and left lower parathyroid glands, selective venous catheterization for parathyroid hormone measurement, and intraoperative neck ultrasound. ANESTHESIA: General. OPERATIVE INDICATION: The patient is a 79-year-old female with a well-documented history of primary hyperparathyroidism. She is being taken to the operating room for a parathyroid exploration. The indications, risks, benefits, and alternatives of the above procedures were reviewed with the patient, who gave informed consent to proceed. INTRAOPERATIVE FINDINGS: Intraoperative neck ultrasound revealed an atrophic thyroid gland. Within the left thyroid bed, there was a hypoechoic lesion, suspicious for an enlarged left parathyroid gland. No other areas were seen to suggest an abnormal parathyroid gland. The images were electronically archived. At exploration, she was found to have an enlarged left upper and left lower parathyroid glands measuring approximately 1 cm each. Both were excised and sent for frozen section, confirming them to be hypercellular parathyroid tissue. The right upper and right lower parathyroid glands were normal in size and easily preserved. Intraoperative venous sampling for parathyroid hormone measurement was obtained from the anterior jugular vein. Prior to excision of the left upper parathyroid gland, it measured 185. Ten minutes after excision of the left upper parathyroid gland, it fell to 110. Ten minutes after excision of the left lower parathyroid gland, it fell to 33. The patient tolerated the procedure well. DESCRIPTION OF PROCEDURE: The patient was taken to the operating room and placed supine on the operating table. After induction of general endotracheal anesthesia, a beanbag support was used to elevate the thoracic spine. The neck was gently hyperextended. Intraoperative neck ultrasound was performed using an ultrasound machine with a small parts transducer. The findings were as noted above. The neck was prepped and draped in the usual sterile fashion. A 3-cm transverse incision was made low in the neck. This was carried down through the subcutaneous tissue and platysma with electrocautery. Inferior and superior subplatysmal flaps were raised. The strap muscles were from one another and from the anterior surface of the thyroid gland. Using medial and cephalad retraction on the left thyroid gland, an enlarged left upper parathyroid gland was identified. This was circumferentially mobilized. A pre-PTH was sent. The left upper parathyroid gland was excised and sent for frozen section. A post-PTH was sent 10 minutes afterwards. Attention was turned to the left lower neck, where an enlarged left lower parathyroid gland was identified. This was circumferentially mobilized. Attention was then turned to the right side of the neck. Using medial and cephalad retraction on the right thyroid gland, a normal right upper parathyroid gland was identified. Attention was then turned to the right lower neck, where a normal right lower parathyroid gland was identified attached to the lower pole of the thyroid gland. The left lower parathyroid gland was then excised and sent for frozen section with the findings as noted above. A post-PTH was sent 10 minutes afterwards. The wound was then irrigated and checked for hemostasis. The strap muscles were closed with individual layers of 4-0 Vicryl suture. The platysma was similarly approximated. The skin was approximated with a running 3-0 Prolene subcuticular suture. The skin was sealed with an adhesive, and the Prolene was removed. The patient tolerated the procedure well. The patient was taken to the recovery room, extubated, and in good condition. Dr. Mejía served as primary and co-surgeon and scrubbed from skin incision to completion of skin closure. There was no qualified resident available to help with this case, and Dr. Centeno was asked to serve as physician assistant surgery. During the course of the dissection, the physician assistant surgery assisted with mobilization, vascular isolation, and division. ESTIMATED BLOOD LOSS: Minimal. DRAINS: None. SPECIMENS: Sent to Pathology. 1. Left upper parathyro (more content not included)... Normal [facility] PTH-Intact SerPl-ncon 09-14 Parathyrin.intact [Mass/Vol] 33 pg/mL Normal 15-65 [facility] Comment on above: Order Comment: Speci pamella Type: BLOOD SPECIMEN Ordering Facility: [facility] Address: [address] [place] [address] Performed By: #### 2 731-8 #### [facility] [id number] [address] [place] [address] [place] Pathology biopsy report Jong (Tiss)on 10-05-2024 AP DISCLAIMER [facility] Comment on above: Order Comment: Speci men Type: TISSUE SPECIMEN Ordering Facility: [facility] Address: [address] [place] [address] Result Comment: David Zapata Test (LDT) Disclaimer: Performance characteristics of immunohistochemical, immunofluorescent, and chromogenic in-situ hybridization tests have been determined by the performing laboratory within [facility]'s Ravindra Luke Pathology and Laboratory Medicine Department ([facility], [facility], [facility], [facility], [facility], or [facility]) in a manner consistent with CLIA requirements. One or more of these tests may not have been cleared or approved by the FDA. [facility] is regulated under CLIA as qualified to perform high-complexity testing. These tests are used for clinical purposes. These should not be regarded as investigational or for research. Positive and negative controls stain appropriately. Performed By: #### 6 6121-5 #### [facility] CLIA [id number] [address] [place] [address] LABORATORY CLIA [id number] [address] [place] [address] CASE REPORT Normal [facility] Comment on above: Order Comment: Speci men Type: TISSUE SPECIMEN Ordering Facility: [facility] Address: [address] [place] [address] Result Comment: Surg [facility] Pathology Report Case: [id number] Authorizing Provider: Randa Mejía MD Collected: 10/05/2024 09:09 AM Ordering Location: [facility] Surgery Received: 10/05/2024 09:15 AM Pathologist: Benoit Simon MD, PhD Intraop: Enoch Weeks MD Specimens: A) - Parathyroid Gland, Left, left upper B) - Parathyroid Gland, Left, left lower Performed By: #### 6 6121-5 #### [facility] CLIA [id number] [address] [place] [address] LABORATORY CLIA [id number] [address] [place] [address] CLINICAL HISTORY Normal [facility] Comment on above: Order Comment: Speci men Type: TISSUE SPECIMEN Ordering Facility: [facility] Address: [address] [place] [address] Result Comment: Pre- op diagnosis: Hyperparathyroidism (HCC) [E21.3] Performed By: #### 6 6121-5 #### [facility] CLIA [id number] [address] [place] [address] LABORATORY CLIA [id number] [address] [place] [address] [place] [facility] FINAL DIAGNOSIS [facility] Comment on above: Order Comment: Speci men Type: TISSUE SPECIMEN Ordering Facility: [facility] Address: [address] [place] [address] Result Comment: A. L eft upper parathyroid gland, parathyroidectomy: -Hypercellular parathyroid. B. Left lower parathyroid gland, parathyroidectomy: - Mildly hypercellular parathyroid. at 1513 EDT Performed By: #### 6 6121-5 #### [facility] CLIA [id number] [address] [place] [address] LABORATORY CLIA [id number] [address] [place] [address] [place] [facility] FINAL PERFORMING LAB [facility] Comment on above: Order Comment: Speci men Type: TISSUE SPECIMEN Ordering Facility: [facility] Address: [address] [place] [address] Result Comment: Diag nostic interpretation performed at: [facility], [address] [place] [address] CLIA# [id number] Jet Blade Polisher: Manny Flower MD Performed By: #### 6 6121-5 #### [facility] CLIA [id number] [address] [place] [address] [place] [facility] CLIA [id number] [address] [place] [address] [place] GROSS DESCRIPTION [facility] Comment on above: Order Comment: Speci men Type: TISSUE SPECIMEN Ordering Facility: [facility] Address: [address] [place] [address] Result Comment: A. P arathyroid Gland, Left Received fresh for intraoperative consultation is a single piece of feliciano-yellow soft tissue measuring 0.7 x 0.6 x 0.4 cm and weighing 0.128 g. Totally submitted as FSA1. B. Parathyroid Gland, Left Received fresh for intraoperative consultation is a single piece of feliciano-yellow soft tissue measuring 1.8 x 0.7 x 0.5 cm and weighing 0.226 g. Totally submitted as FSB1. Gross examination performed at [facility], [address] [place], [place] [address] , [place] [address] CLIA# [id number] Performed By: #### 6 6121-5 #### [facility] CLIA [id number] [address] [place] [address] LABORATORY CLIA [id number] [address] [place] [address] INTRAOPERATIVE DIAGNOSIS Normal [facility] Comment on above: Order Comment: Speci men Type: TISSUE SPECIMEN Ordering Facility: [facility] Address: [address] [place] [address] Result Comment: A. P arathyroid Gland, Left FSA1: Hypercellular parathyroid gland tissue (Dr. Weeks) B. Parathyroid Gland, Left FSB1: Hypercellular parathyroid gland tissue (Dr. Weeks) Intraoperative diagnosis performed at [facility], [address] , [place] [address] CLIA# [id number] Performed By: #### 6 6121-5 #### [facility] CLIA [id number] [address] [place] [address] LABORATORY CLIA [id number] [address] [place] [address] OF [facility] HISTORY PHYSICALon HISTORY PHYSICAL HNO ID: [id number] Author: CHRISTA ANGELO APRN.MONOMER RECOVERY SUPERVISOR Service: ? Author Type: Nurse Practitioner Type: H&P Filed: 09/26/2024 10:32 Note Text: PREANESTHESIA CONSULT CLINIC TELEHEALTH VISIT Patient has been identified by name and date of : Yes This is a virtual visit using [employer] Video Visit. It require patient-provider interaction for the medical decision making as documented below. Reason for contact: PACC visit Accompanied by: Self I have communicated my name and active licensure. The patient's identity and physical location were verified at the time of this visit. Either the patient or their legal arborist representative has been informed of the risks and benefits of -- and alternatives to -- treatment through a remote evaluation and consents to proceed with the evaluation remotely. Scheduled Surgery: PARATHYROIDECTOMY Subjective CHIEF COMPLAINT: No chief complaint on file. HPI: This is a 79 year old female who presents for exploratory parathyroid. ACTIVE PROBLEM LIST Unspecified Constipation Personal History of Other Malignant Neoplasm of Skin Abdominal Pain, Other Specified Site Fibromyalgia Tingling B12 Deficiency Hypothyroid Peripheral Neuropathy Head Pain Migraine Loss of Smell Hyperglycemia Alopecia Trochanteric Bursitis of Left Hip Hld (Hyperlipidemia) History of Stroke Tremor Copd (Chronic Obstructive Pulmonary Disease) (Hcc) Pvc (Premature Ventricular Contraction) Irritable Bowel Syndrome With Constipation Pernicious Anemia Colitis History of Kidney Stones Post-Operative Nausea and Vomiting [place] (Hard of Hearing) PAST MEDICAL HISTORY Diagnosis Date Abdominal pain, other specified site Alopecia Fibromyalgia HLD (hyperlipidemia) 09/25/2024 IBS (irritable bowel syndrome) Kidney stones S/p ureteral stents, lithotripies x5 PMH - PAST MEDICAL HISTORY OF 05/16/1999 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 Post-operative nausea and vomiting 09/26/2024 Skin cancer, basal cell and squamous cell Thoracic outlet syndrome 05/16/1985 1st rib resection PAST SURGICAL HISTORY Procedure Laterality Date CATARACT EXTRACTION HX right eye CHOLECYSTECTOMY 07/2014 COLONOSCOPY FLX DX W/COLLJ SPEC WHEN PFRMD 01/31/2013 Colonoscopy PAST SURGICAL HISTORY OF hyster PAST SURGICAL HISTORY OF appendectomy PAST SURGICAL HISTORY OF tubal PAST SURGICAL HISTORY OF tonsils PAST SURGICAL HISTORY OF 1999 Moh's procedure FAMILY HISTORY Problem Relation Age of Onset Coronary Artery Disease Father other (tremors) Father siblings other (syringomyelia) Father Prostate Cancer Brother other (Senile Dementia) Mother other (hemiplegic migraines) Son Social History Tobacco Use Smoking status: Former Current packs/day: 0.00 Average packs/day: 1 pack/day for 50.0 years (50.0 ttl pk-yrs) Types: Cigarettes Start date: 1965 Quit date: 05/19/2015 Years since quittin.3 Smokeless tobacco: Never Substance Use Topics Alcohol use: No Drug use: Never ALLERGIES Allergen Reactions Adhesive Tape (Chanel* Rash Polysporin [Bacitra* Swelling Augmentin [Amoxicil* Vomiting Hydrocodone-Acetami* GI Upset Propoxyphene Vomiting Skelaxin [Metaxalon* Other: See Comments Rapid heartbeat MEDICATIONS: Current Outpatient Medications Medication Sig cyanocobalamin 1,000 mcg/mL Inject 1,000 mcg intramuscularly once every month. TOPROL XL 25 mg 24 hr tablet Take 25 mg by mouth once daily. vit A,C,L-Atuz-Vnlrvp (PRESERVISION AREDS) 2,148 mcg-113 mg-45 mg-17.4mg tab Take 1 tablet by mouth daily with breakfast. aspirin 81 mg cap Take 1 tablet by mouth once daily. levothyroxine (SYNTHROID) 75 mcg tablet Take 75 mcg by mouth once daily. biotin 5 mg caspule Take 5,000 mcg by mouth once daily. INCRUSE ELLIPTA 62.5 mcg/actuation inhaler Inhale 1 Puff as instructed once daily. cholecalciferol (VITAMIN D3) 50 mcg (2,000 unit) tablet Take 2,000 Units by mouth once daily. polyethylene glycol 3350 (MIRALAX, GLYCOLAX) 17 gram/dose powder Take 17 g by mouth as needed. dicyclomine (BENTYL) 10 [...] Take 1 tablet by mouth once daily. LIPITOR 10MG TABLET Take 10 mg by mouth once daily. EASIVENT 1 Device one time only. No current facility-administered medications for this visit. COVID VACCINATION STATUS: Fully vaccinated REVIEW OF SYSTEMS: Pain Assessment: General: No weight loss, malaise or fevers. 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 Respiratory: Positive for Mild COPD Cardiovascular: Positive for: HLD PVCs GI: Positive for IBS : No history of dysuria, frequency or (more content not included)... Normal [facility] L3410.9992on 09-17-2024 [facility] Misc. COMMENT Normal . [facility] Comment on above: Order Comment: [id number] STOOL CULTURE Result Comment: Test Ordered: [id number] Stool Culture Salmonella/Shigella Screen CB Reference Range: . Test not performed. No stool culture transport device received. RECEIVED RAW STOOL Campylobacter Culture Reference Range: . Test not performed. No stool culture transport device received. RECEIVED RAW STOOL E coli Shiga Toxin EIA Reference Range: . Test not performed. No stool culture transport device received. RECEIVED RAW STOOL Performed at: [address] [id number] [employer] D[employer] Machine Operator: Rex Burrows PhD, Phone: [phone] Performed By: #### L 3410.9992 #### [facility] [address] [place], [place], [address] [facility] Misc. Normal [facility] Comment on above: Order Comment: [id number] DEXAMETHASONE PANEL Result Comment: TEST RESULTS LIMITS Cortisol Dexamethasone Reflex Cortisol, Serum LCMS 2.2 High ug/dL A serum cortisol level greater than 1.8 ug/dL after the single-dose overnight dexamethasone is considered a positive test. Refer to the [facility] Endocrinology Syllabus for more detail. This test was developed and its performance characteristics determined by [facility]. It has not been cleared or approved by the Food and Drug Administration. Reference Range: <1.8 Dexamethasone Reflex Dexamethasone testing added Dexamethasone, Serum Dexamethasone, Serum 304 ng/dL This test was developed and its performance characteristics determined by [facility]. It has not been cleared or approved by the Food and Drug Administration. Reference Range: Adults baseline: <30 8:00 AM following 1 mg dexamethasone previous evenin - 295 8:00 AM following 8 mg dexamethasone (4 x 2 mg doses) previous day: 1600 - 2850 TESTING PERFORMED AT [facility]. ORIGINAL REPORT ON FILE IN LAB CONTAINS ADDITIONAL TEST SITE INFORMATION. Performed By: #### L 3300.1500, L3300.1000, L3410.9992, L509.6001 #### [facility] [address] [place], [address] CBC W/Diff, Automatedon 05-0 1-5 Absolute Lymph 1.16 X10 3/uL Normal 0.83-4.51 [facility] Comment on above: Performed By: #### L 501.6710, L500.4050, L100.0100 #### [facility] [address] [place], [address] Absolute Neut 5.9 X10 3/uL Normal 2.0-7.7 [facility] Comment on above: Performed By: #### L 501.6710, L500.4050, L100.0100 #### [facility] [address] [place], [address] Basophils/100 WBC (Bld) 0.5 % Normal 0-1 [facility] Comment on above: Performed By: #### L 501.6710, L500.4050, L100.0100 #### [facility] [address] [place], [address] Eosinophils/100 WBC (Bld) 2.1 % Normal 0-5 [facility] Comment on above: Performed By: #### L 501.6710, L500.4050, L100.0100 #### [facility] [address] [place], [address] Erythrocyte distribution width (RBC) [Ratio] 13.5 % Normal 11.6-14.6 [facility] Comment on above: Performed By: #### L 501.6710, L500.4050, L100.0100 #### [facility] [address] [place], [address] Hematocrit (Bld) [Volume fraction] 43.4 % Normal 37-47 [facility] Comment on above: Performed By: #### L 501.6710, L500.4050, L100.0100 #### [facility] [address] [place], [address] Hemoglobin (Bld) [Mass/Vol] 14.5 g/dL Normal 12.0-15.0 [facility] Comment on above: Performed By: #### L 501.6710, L500.4050, L100.0100 #### [facility] [address] [place], [address] IG% 0.400 Normal 0.0-0.9 [facility] Comment on above: Result Comment: IG% - Immature Granulocytes (promyelocytes, myelocytes and metamyelocytes) > 1% indicates that a LEFT SHIFT is Present. Performed By: #### L 501.6710, L500.4050, L100.0100 #### [facility] [address] [place], [address] Lymphocytes/100 WBC (Bld) 14.9 % Low 19-41 [facility] Comment on above: Performed By: #### L 501.6710, L500.4050, L100.0100 #### [facility] [address] [place], [address] MCH (RBC) [Entitic mass] 30.3 pg Normal 27.0-32.0 [facility] Comment on above: Performed By: #### L 501.6710, L500.4050, L100.0100 #### [facility] [address] [place], [address] MCHC (RBC) [Mass/Vol] 33.4 g/dL Normal 32-36 [facility] Comment on above: Performed By: #### L 501.6710, L500.4050, L100.0100 #### [facility] [address] [place], [address] MCV (RBC) [Entitic vol] 90.6 fL Normal 81-99 [facility] Comment on above: Performed By: #### L 501.6710, L500.4050, L100.0100 #### [facility] [address] [place], [address] Monocytes/100 WBC (Bld) 6.3 % Normal 0-10 [facility] Comment on above: Performed By: #### L 501.6710, L500.4050, L100.0100 #### [facility] [address] [place], [address] Neutrophils/100 WBC (Bld) 75.8 % High 47-70 [facility] Comment on above: Performed By: #### L 501.6710, L500.4050, L100.0100 #### [facility] [address] [place], [address] Nucleated RBC (Bld) [#/Vol] 0 10*3/uL Normal 0-5 [facility] Comment on above: Performed By: #### L 501.6710, L500.4050, L100.0100 #### [facility] [address] [place], [address] Platelet mean volume (Bld) [Entitic vol] 11.0 fL Normal 6.2-12.0 [facility] Comment on above: Performed By: #### L 501.6710, L500.4050, L100.0100 #### [facility] [address] [place], [address] Platelets (Bld) [#/Vol] 261 10*3/uL Normal 150-450 [facility] Comment on above: Performed By: #### L 501.6710, L500.4050, L100.0100 #### [facility] [address] [place], [address] RBC (Bld) [#/Vol] 4.79 10*6/uL Normal 4.2-5.4 [facility] Comment on above: Performed By: #### L 501.6710, L500.4050, L100.0100 #### [facility] [address] [place], [address] RDW SD 44.9 fl High 35.1-43.9 [facility] Comment on above: Performed By: #### L 501.6710, L500.4050, L100.0100 #### [facility] [address] [place], [address] WBC (Bld) [#/Vol] 7.8 10*3/uL Normal 4.4-11.0 [facility] Comment on above: Performed By: #### L 501.6710, L500.4050, L100.0100 #### [facility] [address] [place], [address] CRPon 2024 C-REACTIVE PROT < 3.00 Normal 0.0-3.0 [facility] Comment on above: Performed By: #### L 501.6710, L500.4050, L100.0100 ####[facility] [address] [place], [address] Comprehensive Metabolic Prof ilon 2024 Albumin [Mass/Vol] 4.0 g/dL Normal 3.4-4.8 [facility] Comment on above: Order Comment: ESR Performed By: #### L 501.6710, L500.4050, L100.0100 ####[facility] [address] [place], [address] Albumin/Globulin [Mass ratio] 1.7 {ratio} Normal 0.9-2.4 [facility] Comment on above: Order Comment: ESR Performed By: #### L 501.6710, L500.4050, L100.0100 ####[facility] [address] [place], [address] ALK PHOS 110 U/L High 35-104 [facility] Comment on above: Order Comment: ESR Performed By: #### L 501.6710, L500.4050, L100.0100 ####[facility] [address] [place], [address] ALT [Catalytic activity/Vol] 15 U/L Normal <=34 [facility] Comment on above: Order Comment: ESR Performed By: #### L 501.6710, L500.4050, L100.0100 ####[facility] [address] [place], [address] AST [Catalytic activity/Vol] 21 U/L Normal <=31 [facility] Comment on above: Order Comment: ESR Performed By: #### L 501.6710, L500.4050, L100.0100 ####[facility] [address] [place], [address] Bilirubin [Mass/Vol] 0.62 mg/dL Normal 0.00-1.30 [facility] Comment on above: Order Comment: ESR Performed By: #### L 501.6710, L500.4050, L100.0100 ####[facility] [address] [place], [address] BUN/CRE 15.7 RATIO Normal 10-20 [facility] Comment on above: Order Comment: ESR Performed By: #### L 501.6710, L500.4050, L100.0100 ####[facility] [address] [place], [address] Calcium [Mass/Vol] 9.6 mg/dL Normal 7.6-11.0 [facility] Comment on above: Order Comment: ESR Performed By: #### L 501.6710, L500.4050, L100.0100 ####[facility] [address] [place], [address] Chloride [Moles/Vol] 107 mmol/L Normal 98-108 [facility] Comment on above: Order Comment: ESR Performed By: #### L 501.6710, L500.4050, L100.0100 ####[facility] [address] [place], [address] CO2 [Moles/Vol] 22.5 mmol/L Normal 21.0-32.0 [facility] Comment on above: Order Comment: ESR Performed By: #### L 501.6710, L500.4050, L100.0100 ####[facility] [address] [place], [address] Creatinine [Mass/Vol] 0.99 mg/dL Normal 0.70-1.20 [facility] Comment on above: Order Comment: ESR Performed By: #### L 501.6710, L500.4050, L100.0100 ####[facility] [address] [place], [address] GAP 11 Normal 5-15 [facility] Comment on above: Order Comment: ESR Performed By: #### L 501.6710, L500.4050, L100.0100 ####[facility] [address] [place], [address] GFR/1.73 sq M.predicted among non-blacks MDRD (S/P/Bld) [Vol rate/Area] 58 mL/min/{1.73_m2} Low >60 [facility] Comment on above: Order Comment: ESR Result Comment: mL/m in/1.73m2 CKD-EPI Creatinine Equation (2020) Performed By: #### L 501.6710, L500.4050, L100.0100 ####[facility] [address] [place], [address] Globulin (S) [Mass/Vol] 2.4 g/dL Normal 2.2-4.2 [facility] Comment on above: Order Comment: ESR Performed By: #### L 501.6710, L500.4050, L100.0100 ####[facility] [address] [place], [address] Glucose [Mass/Vol] 98 mg/dL Normal 70-99 [facility] Comment on above: Order Comment: ESR Performed By: #### L 501.6710, L500.4050, L100.0100 ####[facility] [address] [place], [address] Potassium [Moles/Vol] 4.3 mmol/L Normal 3.3-5.1 [facility] Comment on above: Order Comment: ESR Performed By: #### L 501.6710, L500.4050, L100.0100 ####[facility] [address] [place], [address] Sodium [Moles/Vol] 140 mmol/L Normal 133-145 [facility] Comment on above: Order Comment: ESR Performed By: #### L 501.6710, L500.4050, L100.0100 ####[facility] [address] [place], [address] T PROT 6.4 g/dL Normal 5.9-8.4 [facility] Comment on above: Order Comment: ESR Performed By: #### L 501.6710, L500.4050, L100.0100 ####[facility] [address] [place], [address] Urea nitrogen [Mass/Vol] 16 mg/dL Normal 4-19 [facility] Comment on above: Order Comment: ESR Performed By: #### L 501.6710, L500.4050, L100.0100 ####[facility] [address] [place], [address] Urgent Care Visit Reporton 0 09-08-2024 Urgent Care Visit Report [facility] [address], [address] [place] [address] OFFICE VISIT Date of Service: 09/08/24 MR#: [id number] Acct: [id number] Name: CHERIE JIMENEZ Rep #: [id number] : 1945 Provider: Rachel Castaneda Age/Sex: 78/F Location: [facility] Status: Signed Intake Vital Signs 07/17/24 12:49 09/08/24 12:51 Height 5 ft 4 in Weight: 130 lb BMI 22.3 BP 108/70 118/70 Blood Pressure Location Rt brachial Position Sitting Sitting Respiration 18 Pulse 64 98 Pulse Source Monitor Temp 97.3 F L 98.7 F Temp Source Oral Pulse Oximetry (%) 97 97 Oxygen Delivery Method room air room air Intake Visit Reasons: UPSET STOMACH, DIARRHEA Accompanied by: Self Allergies codeine Allergy (Severe, Verified 09/08/24 12:51) Nausea metaxalone (From Skelaxin) Allergy (Severe, Verified 09/08/24 12:51) palpitations, tachycardia and itching amoxicillin trihydrate (From Augmentin) Allergy (Intermediate, Verified 09/08/24 12:51) Diarrhea cyclobenzaprine (From Flexeril) Allergy (Intermediate, Verified 09/08/24 12:51) PT UNSURE OF REACTION doxycycline Allergy (Intermediate, Verified 09/08/24 12:51) Abd cramps/diarrhea nitrofurantoin (From Macrodantin) Allergy (Intermediate, Verified 09/08/24 12:51) Rash paroxetine (From Paxil) Allergy (Intermediate, Verified 09/08/24 12:51) PT UNSURE OF REACTION varenicline (From Chantix) Allergy (Intermediate, Verified 09/08/24 12:51) Nausea acetaminophen (From Vicodin) Allergy (Verified 09/08/24 12:51) Abd cramps/diarrhea bacitracin (From Polysporin) Allergy (Verified 09/08/24 12:51) Unknown hydrocodone (From Vicodin) Allergy (Verified 09/08/24 12:51) Abd cramps/diarrhea polymyxin B sulfate (From Polysporin) Allergy (Verified 09/08/24 12:51) Unknown potassium clavulanate (From Augmentin) Allergy (Verified 09/08/24 12:51) Unknown sertraline (From Zoloft) Allergy (Verified 09/08/24 12:51) Abd cramps/diarrhea tramadol (From Ultram) Allergy (Verified 09/08/24 12:51) Abd cramps/diarrhea adhesive Adverse Reaction (Severe, Verified 09/08/24 12:51) Swollen, red, broken skin: holter patches sulfamethoxazole (From Septra) Adverse Reaction (Intermediate, Verified 09/08/24 12:51) Abd cramps/diarrhea trimethoprim (From Septra) Adverse Reaction (Intermediate, Verified 09/08/24 12:51) Abd cramps/diarrhea propoxyphene napsylate (From Darvocet-N 100) Adverse Reaction (Verified 09/08/24 12:51) Nausea/Vom/Diarrhea Medications ???Medication ???Instructions ???Recorded ???Confirmed ???Type atorvastatin 10 mg tablet 10 mg PO DAILY 08/08/14 09/08/24 H istory biotin 10,000 mcg capsule 5,000 mcg PO DAILY 08/08/14 History folic acid 1 mg tablet 1 mg PO QODAY 08/08/14 09/08/24 Hi story polyethylene glycol 3350 17 17 g PO DAILY PRN constipation 09/08/24 History gram/dose oral powder aspirin 81 mg tablet,delayed 81 mg PO DAILY 04/14/23 09/08/24 H istory release cyanocobalamin (vitamin B-12) 1,000 mcg IM QMONTH 06/13/2309/08 History 1,000 mcg/mL injection solution (Dodex) glycerin-mineral oil-polycarbophil 1 ea vaginal .COMPLEX 06/13/23 0 09/08/24 History vaginal gel (Feminine Moisturizer and Lubricating(glyc-mnOil) vaginal gel) minoxidil 5 % topical foam 1 ea topical DAILY 06/13/23 History (Daylogic Minoxidil) calcium 500 mg (as 1 tab PO DAILY 07/20/23 09/08/24 H istory carbonate)-vitamin D3 3.125 mcg (125 unit) tablet cholecalciferol (vitamin D3) 25 25 mcg PO DAILY 07/20/23 09/08/24 History mcg (1,000 unit) capsule (Vitamin D3) dicyclomine 10 mg capsule 10 mg PO BID PRN abdominal pain 09/08/24 History vitamins A,C,B-issy-nbexfy 4,296 1 cap PO BID 07/20/23 09/08/24 His tory mcg-226 mg-90 mg capsule (ICaps AREDS) fluoride (sodium) 1.1 % dental applic PO 07/27/23 09/08/24 Histor y cream (SF 5000 Plus) albuterol sulfate 90 mcg/actuation 2 puff inhalation Q6H PRN 09/08/24 Rx aerosol inhaler (Ventolin HFA) shortness of breath or wheezing #1 device levothyroxine 75 mcg tablet 75 mcg PO DAILY 04/23/24 09/08/24 History metoprolol succinate 25 mg 25 mg PO DAILY #90 tabs 05/30/24 0 09/08/24 Rx tablet,extended release 24 hr (Toprol XL) umeclidinium 62.5 mcg/actuation 1 inh inhalation Q24H COPD J44.9 0 07/17/24 09/08/24 Rx blister powder for inhalation #3 ea (Incruse Ellipta) dicyclomine 10 mg capsule 10 mg PO BID 10 days #20 caps 08/1509/08/24 Rx Have you fallen in the past year?: No Nurse's Note: Patient had diarrhea on tu that came out of the blue and she states it was explosive. Patient states she went about 5x and felt like she was going to throw up. Patient states wed she was better and thurs she took some Miralax to (more content not included)... Normal [facility] Adrenocorticotropic Hormoneo n 09-04-2024 ACTH 2.9 pg/mL Low 7.2-63.3 [facility] Comment on above: Order Comment: N Result Comment: ACTH reference interval for samples collected between 7 and 10 AM. Performed at: [facility] [id number] [employer] Machine Operator: Rex Burrows PhD, Phone: [phone] Performed By: #### L 3300.1500, L3300.1000, L3410.9992, L509.6001 #### [facility] [address] [place], [address] DHEA Sulfateon 09-04-2024 DHEA SULFATE 5.6 ug/dL Low 13.9-142.8 [facility] Comment on above: Order Comment: N Performed By: #### L 3300.1500, L3300.1000, L3410.9992, L509.6001 #### [facility] [address] [place], [address] Adrenocorticotropic hormone (ACTH) measurementOrdered By: Alyce Cantrell on 09-03-2024 Adrenocorticotropic Hormone 2.9 pg/mL Low 7.2-63.3 [facility] Comment on above: ACTH reference inter pinky for samples collected between 7 and10 AM.Performed at: [address] [id number] Director: Rex Burrows PhD, Phone: [phone] Cortisol [Mass/Vol]Ordered B y: Alyce Cantrell on 09-03-2024 Cortisol AM Sample 1.88 ug/dL Low 6.02-18.40 [facility] Dehydroepiandrosterone sulfa te (DHEA-S) measurementOrdered By: Alyce Cantrell on 09-03-2024 Dehydroepiandrosterone Sulfate 5.6 ug/dL Low 13.9-142.8 [facility] L509.6001on 09-03-2024 CORTISOL 1.88 ug/dL Low 6.02-18.40 [facility] Comment on above: Order Comment: SERUM FZ Performed By: #### L 3300.1500, L3300.1000, L3410.9992, L509.6001 #### [facility] [address] [place], [address] NM PARATHYROID W SPECT/CTon 07-30-2024 NM PARATHYROID W SPECT/CT * * *Final Rep ort* * * DATE OF EXAM: Jul 30 2024 2:10PM ILAN 0089 - NM PARATHYROID W SPECT/CT / PROCEDURE REASON: E21.3-Hyperparathyroidism (HCC) * * * * Physician Interpretation * * * * EXAM: PARATHYROID SCAN WITH SPECT-CT HISTORY: Hyperparathyroidism. TECHNIQUE: 239 microcuries of I-123 sodium iodide administered PO, followed by thyroid scan. 32.0 mCi Tc-99m sestamibi was given administered IV. SPECT imaging of the skull base through lower thorax performed. Low dose, non-contrast CT of the same body region was obtained for attenuation correction and anatomic localization. Fused images were created and sent to the imaging archive. CT Dose-Length Product (DLP): 78.3 mGy*cm CT Dose Reduction Employed: Automated exposure control (AEC) CORRELATION: POC Thyroid/Parathyroid ultrasound 07/24/2024 RESULTS: I-123 images: Mild uptake localizing to the right thyroid lobe and no substantial uptake localizing to the left thyroid lobe, compatible with known underlying atrophy. Subtraction SPECT-CT images: No areas of abnormal sestamibi or post-subtraction sestamibi activity to suggest a site of abnormal parathyroid tissue. Limited CT Findings: No acute findings. Emphysema. Contract Associate Manager (topogram) images: Not provided. IMPRESSION: No scintigraphic evidence of parathyroid adenoma. Gas Golf Cart Repairer: ERMIAS Transcribe Date/Time: Jul 30 2024 5:01P Dictated by : AMARI RAYMOND MD This examination was interpreted and the report reviewed and electronically signed by: AMARI RAYMOND MD on Jul 30 2024 5:06PM EST [id number] [facility] SPECT+CT Parathyroid glandon 07-30-2024 IMPRESSION: No scintigraphic evidence of parathyroid adenoma. Gas Golf Cart Repairer: [facility] Transcribe Date/Time: Jul 30 2024 5:01P Dictated by : AMARI RAYMOND MD This examination was interpreted and the report reviewed and electronically signed by: AMARI RAYMOND MD on Jul 30 2024 5:06PM EST [facility] * * *Final Report* * * DATE OF EXAM: Jul 30 2024 2:10PM ILAN 0089 - NM PARATHYROID W SPECT/CT / PROCEDURE REASON: E21.3-Hyperparathyroidism (HCC) * * * * Physician Interpretation * * * * EXAM: PARATHYROID SCAN WITH SPECT-CT HISTORY: Hyperparathyroidism. TECHNIQUE: 239 microcuries of I-123 sodium iodide administered PO, followed by thyroid scan. 32.0 mCi Tc-99m sestamibi was given administered IV. SPECT imaging of the skull base through lower thorax performed. Low dose, non-contrast CT of the same body region was obtained for attenuation correction and anatomic localization. Fused images were created and sent to the imaging archive. CT Dose-Length Product (DLP): 78.3 mGy*cm CT Dose Reduction Employed: Automated exposure control (AEC) CORRELATION: POC Thyroid/Parathyroid ultrasound 07/24/2024 RESULTS: I-123 images: Mild uptake localizing to the right thyroid lobe and no substantial uptake localizing to the left thyroid lobe, compatible with known underlying atrophy. Subtraction SPECT-CT images: No areas of abnormal sestamibi or post-subtraction sestamibi activity to suggest a site of abnormal parathyroid tissue. Limited CT Findings: No acute findings. Emphysema. Contract Associate Manager (topogram) images: Not provided. [facility] Provider, [facility] - 07/30/2024 * * *Final Report* * * DATE OF EXAM: Jul 30 2024 2:10PM ILAN 0089 - NM PARATHYROID W SPECT/CT / PROCEDURE REASON: E21.3-Hyperparathyroidism (HCC) * * * * Physician Interpretation * * * * EXAM: PARATHYROID SCAN WITH SPECT-CT HISTORY: Hyperparathyroidism. TECHNIQUE: 239 microcuries of I-123 sodium iodide administered PO, followed by thyroid scan. 32.0 mCi Tc-99m sestamibi was given administered IV. SPECT imaging of the skull base through lower thorax performed. Low dose, non-contrast CT of the same body region was obtained for attenuation correction and anatomic localization. Fused images were created and sent to the imaging archive. CT Dose-Length Product (DLP): 78.3 mGy*cm CT Dose Reduction Employed: Automated exposure control (AEC) CORRELATION: POC Thyroid/Parathyroid ultrasound 07/24/2024 RESULTS: I-123 images: Mild uptake localizing to the right thyroid lobe and no substantial uptake localizing to the left thyroid lobe, compatible with known underlying atrophy. Subtraction SPECT-CT images: No areas of abnormal sestamibi or post-subtraction sestamibi activity to suggest a site of abnormal parathyroid tissue. Limited CT Findings: No acute findings. Emphysema. Contract Associate Manager (topogram) images: Not provided. IMPRESSION IMPRESSION: No scintigraphic evidence of parathyroid adenoma. Gas Golf Cart Repairer: PSCB Transcribe Date/Time: Jul 30 2024 5:01P Dictated by : AMARI RAYMOND MD This examination was interpreted and the report reviewed and electronically signed by: AMARI RAYMOND MD on Jul 30 2024 5:06PM EST [facility] Radiology Study observation (narrative) L[facility] SPECT+CT Parathyroid glandOr dered By: Ccf Provider on 07-30-[address] [facility] CHERIE JIMENEZ ([id number]) 1945 F YBB Date Time Provider Department 07/27/24 [facility] During your visit today, we recorded the following information about you: Farhat Jimenez 07/27/2024 11:18 AM Signed INDEXED EKG AND STRESS TEST Allergies As of Date: 07/27/2024 Noted Allergy Reaction ADHESIVE TAPE (ROSINS) 02/21/2004 2 - Rash POLYSPORIN (BACITRACIN-POLYMYXIN *11/06/2009 7 - Swelling AUGMENTIN (AMOXICILLIN-POT CLAVUL*10/17/2009 11 - Vomiting HYDROCODONE-ACETAMINOPHEN 10/06/2016 8 - GI Upset PROPOXYPHENE 02/21/2004 11 - Vomiting SKELAXIN (METAXALONE) 11/25/2015 14 - Other: See Comments Comments: Rapid heartbeat Date Reviewed: 07/24/2024 Reviewed by: Viv Guadarrama MA - Fully Assessed Reason for Visit: Received Outside Medical Records [8180] Cmt: INDEXED EKG AND STRESS TEST Prescriptions as of 07/27/2024 - cyanocobalamin 1,000 mcg/mL Inject 1,000 mcg intramuscularly once every month. - TOPROL XL 25 mg 24 hr tablet Take 25 mg by mouth once daily. - vit A,C,S-Cnkc-Plygdl (PRESERVISION AREDS) 2,148 mcg-113 mg-45 mg-17.4mg tab Take 1 tablet by mouth daily with breakfast. - aspirin 81 mg cap Take 1 tablet by mouth once daily. - levothyroxine (SYNTHROID) 75 mcg tablet Take 75 mcg by mouth once daily. - biotin 5 mg caspule Take 5,000 mcg by mouth once daily. - INCRUSE ELLIPTA 62.5 mcg/actuation inhaler Inhale 1 Puff as instructed once daily. - magnesium oxide (MAG-OX) 400 mg (241.3 mg magnesium) tablet Take 400 mg by mouth once daily. - EASIVENT 1 Device one time only. - cholecalciferol (VITAMIN D3) 50 mcg (2,000 unit) tablet Take 2,000 Units by mouth once daily. - polyethylene glycol 3350 (MIRALAX, GLYCOLAX) 17 gram/dose powder Take 17 g by mouth as needed. - famotidine (PEPCID AC ORAL) Take 20 mg by mouth as needed. - dicyclomine (BENTYL) 10 mg capsule Take 10 mg by mouth before meals and at bedtime. - Minoxidil 5 % soln Apply 1 application to affected area once daily. - albuterol HFA (PROVENTIL HFA) 90 mcg/actuation inhaler Inhale 2 Puffs as instructed four times daily as needed for Wheezing/Shortness of Breath. - folic acid 1 mg tablet Take 1 tablet by mouth once daily. - LIPITOR 10MG TABLET Take 10 mg by mouth once daily. Problem List As Of Date 07/27/2024 Noted Resolved CONSTIPATION NOS [K59.00] 07/02/2005 PERS HX SKIN MALIGNANCY NEC [Z85.828] 05/12/2006 Abdominal Pain, Other Specified Site [R10.9] Fibromyalgia [M79.7] Tingling [R20.2] 02/11/2012 B12 deficiency [E53.8] 02/11/2012 Hypothyroid [E03.9] 02/11/2012 Peripheral neuropathy [G62.9] 02/11/2012 Head pain [R51.9] 02/11/2012 Migraine [G43.909] 02/11/2012 Loss of smell [R43.0] 02/11/2012 Hyperglycemia [R73.9] 02/11/2012 Alopecia [L65.9] 08/28/2014 Trochanteric bursitis of left hip [M70.62] 07/20/2024 Encounter Status:Closed by FARHAT JIMENEZ on 07/27/24 Normal [facility] Basic metabolic 2000 panelon 07-25-2024 Anion gap [Moles/Vol] 8 mmol/L Normal 8-15 [facility] Comment on above: Order Comment: Speci men Type: BLOOD SPECIMENOrdering Facility: [facility] Address: [address] [place] [address] Performed By: #### 2 4321-2 ####[facility] SARAH MILLTOWNCLIA [id number] [place] [address] [place] Calcium [Mass/Vol] 9.9 mg/dL Normal 8.5-10.2 [facility] Comment on above: Order Comment: Speci men Type: BLOOD SPECIMENOrdering Facility: [facility] Address: [address] [place] [address] Performed By: #### 2 4321-2 ####[facility] SARAH MILLTOWNCLIA [id number] [place] [address] [place] Chloride [Moles/Vol] 105 mmol/L Normal 98-107 [facility] Comment on above: Order Comment: Speci men Type: BLOOD SPECIMENOrdering Facility: [facility] Address: [address] [place] [address] Performed By: #### 2 4321-2 ####[facility] SARAH MILLTOWNCLIA [id number] [place] [address] [place] CO2 [Moles/Vol] 26 mmol/L Normal 22-30 [facility] Comment on above: Order Comment: Speci men Type: BLOOD SPECIMENOrdering Facility: [facility] Address: [address] [place] [address] Performed By: #### 2 4321-2 ####[facility] SARAH MILLTOWNCLIA [id number] [place] [address] [place] Creatinine [Mass/Vol] 1.00 mg/dL High 0.58-0.96 [facility] Comment on above: Order Comment: Rahel can Type: BLOOD SPECIMENOrdering Facility: [facility] Address: [address] [place] [address] Performed By: #### 2 4321-2 ####[facility] [id number] [place] [address] [place] Creatinine and Glomerular filtration rate.predicted panel (S/P/Bld) 58 mL/min/1.73m??? Low >=60 [facility] Comment on above: Order Comment: Rahel can Type: BLOOD SPECIMENOrdering Facility: [facility] Address: [address] [place] [address] Result Comment: Soo mated Glomerular Filtration Rate (eGFR) is calculated using the 2020 CKD-EPI creatinine equation. This equation utilizes serum creatinine, sex, and age as parameters. The creatinine assay has traceable calibration to isotope dilution-mass spectrometry. Refer to KDIGO guidelines for clinical interpretation. In patients with unstable renal function, e.g. those with acute kidney injury, the eGFR may not accurately reflect actual GFR. Performed By: #### 2 4321-2 ####[facility] [id number] [place] [address] [place] Glucose [Mass/Vol] 96 mg/dL Normal 74-99 [facility] Comment on above: Order Comment: Rahel can Type: BLOOD SPECIMENOrdering Facility: [facility] Address: [address] [place] [address] Result Comment: The [place] Diabetes Association (ADA) provides guidance for cutoff values for fasting glucose and random glucose. The ADA defines fasting as no caloric intake for at least 8 hours. Fasting plasma glucose results between 100 to 125 mg/dL indicate increased risk for diabetes (prediabetes). Fasting plasma glucose results greater than or equal to 126 mg/dL meet the criteria for diagnosis of diabetes. In the absence of unequivocal hyperglycemia, results should be confirmed by repeat testing. In a patient with classic symptoms of hyperglycemia or hyperglycemic crisis, random plasma glucose results greater than or equal to 200 mg/dL meet the criteria for diagnosis of diabetes. Reference: Standards of Medical Care in Diabetes 2016, [place] [employer] Association. Diabetes Care. 2016.39(Suppl 1). Performed By: #### 2 4321-2 ####[facility] [id number] [place] [address] [place] Potassium [Moles/Vol] 4.0 mmol/L Normal 3.7-5.1 [facility] Comment on above: Order Comment: Speci men Type: BLOOD SPECIMENOrdering Facility: [facility] Address: [address] [place] [address] Performed By: #### 2 4321-2 ####[facility] [id number] [place] [address] [place] Sodium [Moles/Vol] 139 mmol/L Normal 136-144 [facility] Comment on above: Order Comment: Speci men Type: BLOOD SPECIMENOrdering Facility: [facility] Address: [address] [place] [address] Performed By: #### 2 4321-2 ####[facility] [id number] [place] [address] [place] Urea nitrogen [Mass/Vol] 24 mg/dL High 7-21 [facility] Comment on above: Order Comment: Speci men Type: BLOOD SPECIMENOrdering Facility: [facility] Address: [address] [place], [place] [address] Performed By: #### 2 4321-2 ####[facility] [id number] [place] [address] [place] CBC W Auto Differential pane l (Bld)on 07-25-2024 Basophils (Bld) [#/Vol] 0.05 10*3/uL Normal <0.11 [facility] Comment on above: Order Comment: Speci men Type: BLOOD SPECIMENOrdering Facility: [facility] Address: [address] [place] [address] Performed By: #### 5 7021-8 ####[facility] LADONNAWNCLIA [id number] [place] [address] [place] Basophils/100 WBC (Bld) 0.5 % Normal [facility] Comment on above: Order Comment: Speci men Type: BLOOD SPECIMENOrdering Facility: [facility] Address: [address] [place] [address] Performed By: #### 5 7021-8 ####[facility] [id number] [place] [address] [place] Differential cell count method Nom (Bld) Auto Normal [facility] Comment on above: Order Comment: Speci men Type: BLOOD SPECIMENOrdering Facility: [facility] Address: [address] [place] [address] Performed By: #### 5 7021-8 ####[facility] [id number] [place] [address] [place] Eosinophils (Bld) [#/Vol] 0.19 10*3/uL Normal <0.46 [facility] Comment on above: Order Comment: Speci men Type: BLOOD SPECIMENOrdering Facility: [facility] Address: [address] [place] [address] Performed By: #### 5 7021-8 ####[facility] MILLWNCLIA [id number] [place] [address] [place] Eosinophils/100 WBC (Bld) 1.9 % Normal [facility] Comment on above: Order Comment: Speci men Type: BLOOD SPECIMENOrdering Facility: [facility] Address: [address] [place] [address] Performed By: #### 5 7021-8 ####[facility]IT[facility] [id number] [place] [address] [place] Erythrocyte distribution width (RBC) [Ratio] 13.8 % Normal 11.5-15.0 [facility] Comment on above: Order Comment: Speci men Type: BLOOD SPECIMENOrdering Facility: [facility] Address: [address] [place] [address] Performed By: #### 5 7021-8 ####[facility] [id number] [place] [address] [place] Hematocrit (Bld) [Volume fraction] 44.9 % Normal 36.0-46.0 [facility] Comment on above: Order Comment: Speci men Type: BLOOD SPECIMENOrdering Facility: [facility] Address: [address] [place] [address] Performed By: #### 5 7021-8 ####[facility]ALAHICande [id number] [place] [address] [place] Hemoglobin (Bld) [Mass/Vol] 15.1 g/dL Normal 11.5-15.5 [facility] Comment on above: Order Comment: Speci men Type: BLOOD SPECIMENOrdering Facility: [facility] Address: [address] [place] [address] Performed By: #### 5 7021-8 ####[facility] LADONNATONTO BASINHILIA [id number] [place] [address] [place] Immature granulocytes (Bld) [#/Vol] 0.03 10*3/uL Normal <0.10 [facility] Comment on above: Order Comment: Speci men Type: BLOOD SPECIMENOrdering Facility: [facility] Address: [address] [place] [address] Performed By: #### 5 7021-8 ####[facility] [id number] [place] [address] [place] Immature granulocytes/100 WBC (Bld) 0.3 % Normal [facility] Comment on above: Order Comment: Speci men Type: BLOOD SPECIMENOrdering Facility: [facility] Address: [address] [place] [address] Performed By: #### 5 7021-8 ####[facility] [id number] [place] [address] [place] Lymphocytes (Bld) [#/Vol] 1.52 10*3/uL Normal 1.00-4.0 0 [facility] Comment on above: Order Comment: Speci men Type: BLOOD SPECIMENOrdering Facility: [facility] Address: [address] [place] [address] Performed By: #### 5 7021-8 ####[facility] [id number] [place] [address] [place] Lymphocytes/100 WBC (Bld) 15.3 % Normal [facility] Comment on above: Order Comment: Speci men Type: BLOOD SPECIMENOrdering Facility: [facility] Address: [address] [place] [address] Performed By: #### 5 7021-8 ####[facility] [id number] [place] [address] [place] MCH (RBC) [Entitic mass] 29.9 pg Normal 26.0-34.0 [facility] Comment on above: Order Comment: Speci men Type: BLOOD SPECIMENOrdering Facility: [facility] Address: [address] [place] [address] Performed By: #### 5 7021-8 ####[facility] [id number] [place] [address] [place] MCHC (RBC) [Mass/Vol] 33.6 g/dL Normal 30.5-36.0 [facility] Comment on above: Order Comment: Speci men Type: BLOOD SPECIMENOrdering Facility: [facility] Address: [address] [place] [address] Performed By: #### 5 7021-8 ####[facility] [id number] [place] [address] [place] MCV (RBC) [Entitic vol] 88.9 fL Normal 80.0-100.0 C [facility] Comment on above: Order Comment: Speci men Type: BLOOD SPECIMENOrdering Facility: [facility] Address: [address] [place] [address] Performed By: #### 5 7021-8 ####[facility] [id number] [place] [address] [place] Monocytes (Bld) [#/Vol] 0.63 10*3/uL Normal <0.87 [facility] Comment on above: Order Comment: Speci men Type: BLOOD SPECIMENOrdering Facility: [facility] Address: [address] [place] [address] Performed By: #### 5 7021-8 ####[facility] [id number] [place] [address] [place] Monocytes/100 WBC (Bld) 6.3 % Normal C [facility] Comment on above: Order Comment: Speci men Type: BLOOD SPECIMENOrdering Facility: [facility] Address: [address] [place] [address] Performed By: #### 5 7021-8 ####[facility] [id number] [place] [address] [place] Neutrophils (Bld) [#/Vol] 7.52 10*3/uL High 1.45-7.5 0 [facility] Comment on above: Order Comment: Speci men Type: BLOOD SPECIMENOrdering Facility: [facility] Address: [address] [place] [address] Performed By: #### 5 7021-8 ####[facility] LADONNAWHILIA [id number] [place] [address] [place] Neutrophils/100 WBC (Bld) 75.7 % Normal [facility] Comment on above: Order Comment: Speci men Type: BLOOD SPECIMENOrdering Facility: [facility] Address: [address] [place] [address] Performed By: #### 5 7021-8 ####[facility]ALAKRIST[facility] [id number] [place] [address] [place] Nucleated RBC (Bld) [#/Vol] 10*3/uL Normal <0.01 [facility] Comment on above: Order Comment: Speci men Type: BLOOD SPECIMENOrdering Facility: [facility] Address: [address] [place] [address] Performed By: #### 5 7021-8 ####[facility] [id number] [place] [address] [place] Nucleated RBC/100 WBC (Bld) [Ratio] 0.0 /100 WBC Normal [facility] Comment on above: Order Comment: Speci men Type: BLOOD SPECIMENOrdering Facility: [facility] Address: [address] [place] [address] Performed By: #### 5 7021-8 ####[facility]ITALJODY [id number] [place] [address] [place] Platelet mean volume (Bld) [Entitic vol] 10.5 fL Normal 9.0-12.7 [facility] Comment on above: Order Comment: Speci men Type: BLOOD SPECIMENOrdering Facility: [facility] Address: [address] [place] [address] Performed By: #### 5 7021-8 ####[facility] [id number] [place] [address] [place] Platelets (Bld) [#/Vol] 278 10*3/uL Normal 150-400 [facility] Comment on above: Order Comment: Speci men Type: BLOOD SPECIMENOrdering Facility: [facility] Address: [address] [place] [address] Performed By: #### 5 7021-8 ####[facility] ERWNCLIA [id number] [place] [address] [place] RBC (Bld) [#/Vol] 5.05 10*6/uL Normal 3.90-5.20 [facility] Comment on above: Order Comment: Speci men Type: BLOOD SPECIMENOrdering Facility: [facility] Address: [address] [place] [address] Performed By: #### 5 7021-8 ####[facility] [id number] [place] [address] [place] WBC (Bld) [#/Vol] 9.94 10*3/uL Normal 3.70-11.00 [facility] Comment on above: Order Comment: Speci men Type: BLOOD SPECIMENOrdering Facility: [facility] Address: [address] [place] [address] Performed By: #### 5 7021-8 ####[facility] [id number] [place] [address] [place] CNOVon 07-24-2024 CNOV Office Visit (ENSUMN ) ----- CHERIE JIMENEZ ([id number]) 1945 F YBB Date Time Provider Department 07/24/24 10:00 AM RANDA MEJÍA During your visit today, we recorded the following information about you: Pulse Blood pressure Weight Height 68/minute 124/64 60 kg 1.628 m Viv Guadarrama MA 07/24/2024 9:28 AM Signed Thank you for choosing the [facility] Department of Endocrinology, Diabetes and Metabolism. Did you know that you need to call 48 hours in advance of your scheduled visit, if you are unable to make your appointment? [facility] thanks you for your commitment, because patients not showing to their appointment results in a lost opportunity for patients to receive [facility] health care at the [facility]. To Cancel an appointment, please choose one of the following: - Call the Appointment Call Center at [phone] - From [facility], Go to Appointments - Cancel Appts If cancelling, consider your need to reschedule to prevent further delays in your care. To Schedule an appointment, please choose one of the following: - Call the Appointment Call Center at [phone] - From [facility], Go to Appointments - Request an Appt Randa Mejía MD 07/24/2024 10:54 AM Signed [facility] Department of Endocrine Surgery Randa Mejía M.D. [address] [place] [address] Ms. Cherie Jimenez was seen in the office today in consultation for primary hyperparathyroidism. The patient was referred by Dr. Scarlett Cabrera, and my findings and recommendations will be communicated by way of the shared medical record. Thank you for referring your patient, Ms. Jimenez, for evaluation of primary hyperparathyroidism. As you know, she is a 78-year-old female who was incidentally found to have elevated calcium levels on routine blood work. Subsequent biochemical work-up also revealed elevated PTH levels. The diagnosis of primary hyperparathyroidism was made, and she was referred here for further evaluation. The patient's past medical history is significant for hypothyroidism, IBS, recurrent kidney stones, and fibromyalgia. Her medications include toprol, inhalers, levothyroxine, albuterol, biotin, folic acid, lipitor, dicyclomine, famotidine, aspirin, and vitamins. The patient's past surgical history is significant for lithotripsy, cholecystectomy, hysterectomy, appendectomy, tubal ligation, and first rib resection. The patient denies any family history of hypercalcemia, hyperparathyroidism, or kidney stones. The patient denies any history of ionizing radiation to the head or neck. In terms of symptoms related to primary hyperparathyroidism, she has had recurrent kidney stones many years ago. Her most recent episode in April did not require surgery. She also has intermittent reflux, musculoskeletal pain, constipation, and fatigue. Latest Ref Rng 03/17/2021 06/27/2024 06/28/2024 07/10/2024 07/18/2024 - PARATHYROID DATA SHEET Calcium 8.5 - 10.2 mg/dL 10.3 (H) Calcium 8.5 - 10.2 mg/dL 10.3 (H) 9.9 Ionized Calcium 1.08 - 1.30 mmol/L 1.40 (H) PTH, Intact 15 - 65 pg/mL 70 (H) 108 (H) Phosphorus 2.7 - 4.8 mg/dL 3.8 Creatinine 0.58 - 0.96 mg/dL 0.91 Creatinine 0.58 - 0.96 mg/dL 0.96 Vitamin D 25 Hydroxy 31.0 - 80.0 ng/mL 44.5 Vit D1,25 Dihydroxy 19.9 - 79.3 pg/mL 52.2 Calcium, 24 Hr Urine 100.0 - 300.0 mg/24 hr 79.8 (L) She has not yet undergone a parathyroid scan. Her most recent bone density scan performed on 07/18/24 revealed a T-score of -4.0 of the forearm, consistent with osteoporosis. On physical examination, Ms. Jimenez is a healthy appearing woman in no acute distress. Inspection of the head and neck reveals no obvious abnormalities. Palpation of the neck reveals no thyromegaly or cervical lymphadenopathy. Ultrasound examination was performed in the office. This revealed an atrophic thyroid gland. Within the left thyroid bed, there was a hypoechoic lesion measuring 0.34 x 0.54 x 0.61 cm, suspicious for an enlarged left parathyroid gland. No other areas were seen to suggest an abnormal parathyroid gland. In summary, Ms. Jimenez is a 78-year-old female with biochemical studies that show clear evidence of primary hyperparathyroidism. Given her markedly decreased bone density, as well as other manifestations of primary hyperparathyroidism, I feel that she would be best served by undergoing a parathyroid exploration. The indications, risks, benefits, and alternatives of a parathyroid exploration were explained to the patient in detail. I will keep you informed as to her perioperative course. I appreciate being involved in the care of your patient, and please feel free to contact me should you have questions or concerns. RANDA MEJÍA M.D. CC: Scarlett (more content not included)... Normal [facility] [id number] 07-20-2024 [id number] HNO ID: [id number] Author: NANCY GUADARRAMA PT Service: ? Author Type: Physical Therapist Type: [id number] Filed: 07/20/2024 14:35 Note Text: [facility] Rehabilitation and Sports Therapy Physical Therapy Plan of Care Certification Patient Name: Cherie Jimenez : 1945 [facility] #: [id number] Date: 07/20/2024 To: Scarlett Cabrera MD From Therapist: Nancy Guadarrama PT RE: Patient Certification/ Recertification Your review, approval and electronic signature are required in order to comply with Payor: MEDICARE / Plan: MEDICARE A AND B / Product Type: Medicare / regulations. The identified Physical Therapy PLAN OF CARE for the patient is as follows: M70.62 Trochanteric bursitis of left hip PLAN OF CARE: Assessment: Cherie Jimenez presents with diagnosis of trochanteric bursitis of left hip that interferes with sleeping . The patient presents with impairments in ADL's, overall function, patient reported outcome measures, and symptom management. PROMIS? (Patient-Reported Outcomes Measurement Information System) scores were reviewed and identified as a rehabilitation concern. Prognosis for therapy is Good due to: current objective clinical presentation, good support system/ coping skills, positive past response to therapy . The patient will benefit from skilled therapy services to meet the goals established for this plan of care as noted below. Goals for Episode of Care: established 07/20/24 [place] in home exercise program. Patient will demonstrate increase in L hip abductor strength to 4/5 during manual muscle testing in order to improve function for prior functional tasks. Perform sleeping 6-8 hours with reports of continued decreased report of symptoms/pain in 6 weeks. Patient Goals: resolve hip pain at night Time Frame for Goals and Treatment : 08/31/24 Planned Interventions, Frequency, and Duration: Current Frequency: 1x/week Duration: 6 weeks Total Number of Visits Planned: 6 Planned Treatment Interventions: Gait Training (32553), Self-skilled nursing management (89245), Therapeutic activities (78053), Manual therapy (24137), Therapeutic exercise (45723), Neuromuscular re-education (88502) PLAN FOR NEXT VISIT: hold chart 3 mo. Patient demonstrates good understanding of plan of care and treatment. The above goals and plan of care were discussed and agreed upon by patient/family. For further details regarding this patient refer to the Physical Therapy electronically documented visit dated 07/20/2024. Provider Attestation I have reviewed the treatment plan for Cherie Jimenez, [facility]# [id number] for the period of 07/20/24 -- 08/31/24, established on 07/20/2024. Signature certifies the need for therapy services. Normal [facility] CNTHERAPYon 07-20-2024 CNTHERAPY OT/PT/Speech Visit ( PTWS) ----- JOECHERIE MÁRQUEZ ([id number]) 1945 F YBB Date Time Provider Department 07/20/24 1:15 PM NANCY GUADARRAMA Date Time Provider Department Center 07/20/2024 1:15 PM [id number] GUADARRAMA Saarhnorman Barnes Reason for Visit: PT Eval [747] Visit Diagnosis:Trochanteric bursitis of left hip [M70.62] Allergies As of Date: 07/20/2024 Noted Allergy Reaction ADHESIVE TAPE (ROSINS) 02/21/2004 2 - Rash POLYSPORIN (BACITRACIN-POLYMYXIN *11/06/2009 7 - Swelling AUGMENTIN (AMOXICILLIN-POT CLAVUL*10/17/2009 11 - Vomiting HYDROCODONE-ACETAMINOPHEN 10/06/2016 8 - GI Upset PROPOXYPHENE 02/21/2004 11 - Vomiting SKELAXIN (METAXALONE) 11/25/2015 14 - Other: See Comments Comments: Rapid heartbeat Date Reviewed: 07/06/2024 Reviewed by: Deepti Gallagher MA - Fully Assessed Prescriptions as of 07/20/2024 - cyanocobalamin 1,000 mcg/mL Inject 1,000 mcg intramuscularly once every month. - TOPROL XL 25 mg 24 hr tablet Take 25 mg by mouth once daily. - vit A,C,T-Mbnf-Chqbcb (PRESERVISION AREDS) 2,148 mcg-113 mg-45 mg-17.4mg tab Take 1 tablet by mouth daily with breakfast. - aspirin 81 mg cap Take 1 tablet by mouth once daily. - levothyroxine (SYNTHROID) 75 mcg tablet Take 75 mcg by mouth once daily. - biotin 5 mg caspule Take 5,000 mcg by mouth once daily. - INCRUSE ELLIPTA 62.5 mcg/actuation inhaler Inhale 1 Puff as instructed once daily. - magnesium oxide (MAG-OX) 400 mg (241.3 mg magnesium) tablet Take 400 mg by mouth once daily. - EASIVENT 1 Device one time only. - cholecalciferol (VITAMIN D3) 50 mcg (2,000 unit) tablet Take 2,000 Units by mouth once daily. - polyethylene glycol 3350 (MIRALAX, GLYCOLAX) 17 gram/dose powder Take 17 g by mouth as needed. - famotidine (PEPCID AC ORAL) Take 20 mg by mouth as needed. - dicyclomine (BENTYL) 10 mg capsule Take 10 mg by mouth before meals and at bedtime. - Minoxidil 5 % soln Apply 1 application to affected area once daily. - albuterol HFA (PROVENTIL HFA) 90 mcg/actuation inhaler Inhale 2 Puffs as instructed four times daily as needed for Wheezing/Shortness of Breath. - folic acid 1 mg tablet Take 1 tablet by mouth once daily. - LIPITOR 10MG TABLET Take 10 mg by mouth once daily. [employer] Vitamin Consultant: Addendum Therapy (PT/OT/Speech/Resp) ID: [id number] 07/20/2024 1:36 PM Author: NANCY GUADARRAMA Signed by NANCY GUADARRAMA PT on 07/20/2024 at 1:36 PM * * * This document replaces document [id number] * * * Document text: Program_ID:[id number] Access Code: [email or web address] URL: [email or web address]://[email or web address]/ Date: 07-20-2024 Prepared By: Nancy Guadarrama Program Notes Exercises - Sidelying Hip Abduction - 1-2 x daily - 7 x weekly - 3-4 sets - 10 reps - Clamshell - 1-2 x daily - 7 x weekly - 2 sets - 15 reps - Sidelying Reverse Clamshell - 1-2 x daily - 7 x weekly - 2 sets - 15 reps - Supine Gluteal Sets - 2 x daily - 7 x weekly - 2 sets - 10 reps Normal [facility] THERAPY NTon 07-20-2024 THERAPY NT HNO ID: [id number] Author: NANCY GUADARRAMA, HERACLIO Service: ? Author Type: Physical Therapist Type: Therapy (PT/OT/Speech/Resp) Filed: 07/20/2024 13:36 Note Text: Program_ID:[id number] Access Code: [email or web address] URL: https://[email or web address]/ Date: 07-20-2024 Prepared By: Nancy Guadarrama Program Notes Exercises - Sidelying Hip Abduction - 1-2 x daily - 7 x weekly - 3-4 sets - 10 reps - Clamshell - 1-2 x daily - 7 x weekly - 2 sets - 15 reps - Sidelying Reverse Clamshell - 1-2 x daily - 7 x weekly - 2 sets - 15 reps - Supine Gluteal Sets - 2 x daily - 7 x weekly - 2 sets - 10 reps Normal [facility] 1,25-dihydroxyvitamin D3 [Ma ss/Vol]on 07-18-2024 VIT D1,25 DIHYDROXY 52.2 pg/mL Normal 19.9-79.3 [facility] Comment on above: Order Comment: Speci men Type: BLOOD SPECIMENOrdering Facility: [facility] Address: [address] [place] [address] Performed By: #### 1 989-3, 1649-3 ####[facility] LABCLIA [id number] [address] [facility] 25([place])D3 [facility] 25-hydroxyvitamin D3 [Mass/Vol] 44.5 ng/mL Normal 31.0-80.0 [facility] Comment on above: Order Comment: Speci men Type: BLOOD SPECIMENOrdering Facility: [facility] Address: [address] [place] [address] Result Comment: Clas sification of 25 [place] Vitamin D status: Deficiency/Insufficiency: < or = 30 ng/ml. Sufficiency/Optimal Levels: 31-80 ng/mL Toxicity: > 100 ng/mL. Test performed by chemiluminescent immunoassay. Performed By: #### 1 989-3, 1649-3 ####[facility] LABIA [id number] [address] [place] Bone density reportOrdered B y: Audie Ramires on 07-18-2024 Study report Skeletal system DXA [facility] Imaging Services [address] [place], [place] [id number] Dexa Bone Density Study MR#: [id number] Acct: [id number] Name: CHERIE JIMENEZ Rep #: [id number] : 1945 F 78 From: Elroy Ramires MD PCP: Dr. Alyce Cantrell MD Status: REG CLI Study:Dexa Bone Density Study Date of Exam: 07/18/24 Exam# [id number] Ordering Dr: Tez CABRERA PROCEDURE: DEXA BONE DENSITY STUDY REASON FOR EXAM: F, age 78 y/o . Postmenopausal. TECHNIQUE: DEXA scan of the lumbar spine and both hips. COMPARISON: Comparison is made with prior study dated December 19, 2018. FINDINGS: Lumbar Spine (L1-L4): g/cm2 (0.806)/T-score (-2.2)/Z-score (0.4) findings are suggestive of osteopenia with a high fracture risk. Left Femur Total: g/cm2 (0.760)/T-score (-1.5)/Z-score (0.5) Left Femoral Neck: g/cm2 (0.768)/T-score (-0.7)/Z-score (1.5) Right Femur Total: g/cm2 (0.732)/T-score (-1.7)/Z-score (0.3) Right Femoral Neck: g/cm2 (0.711)/T-score (-1.2)/Z-score (1.0) Right Forearm: g/cm2 (0.362)/T-score (-4.0)/Z-score (-1.2) Left Forearm: g/cm2 ( ) / T-score ( ) / Z-score ( ) BD/Dexa Bone Density Study IMPRESSION: The patient is considered osteoporotic as outlined below according to World Bert Organization (WHO) criteria with a high fracture risk. There has been worsening of bone density since the previous examination. Reading Location: [id number] CC: Dr. 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 HAD BONE DENSITY DONE ON 07/18/2024 AT [facility]-PT WAS PROVIDED W/THE FAX # AND SHE WILL HAVE THE RESULTS FAXED). ENDOCRINE SURGERY PATIENT WORKSHEET Initial Call Date: July 18, 2024 Reason for Consult/ Referral: Hyperparathyroid PATIENT DEMOGRAPHICS Name: Cherie Jimenez CCF#: [id number] : 1945 AGE: [age] year old Contact Numbers: Home: (home) Work: There is no work phone number on file. PATIENT PHYSICIAN INFORMATION Referring Doctor: Address: Phone: [employer] Pile Driver Operator: Address: Phone: PCP: Alyce Cantrell ([facility]) [address] [place] [address] PAST TREATMENT Office notes: SEE EPIC Medications: ASPIRIN Pre-Visit Testing Latest Ref Rng 06/27/2024 06/28/2024 07/10/2024 Protein, Total 6.3 - 8.0 g/dL 6.7 Albumin 3.9 - 4.9 g/dL 4.3 Calcium 8.5 - 10.2 mg/dL 10.3 (H) Bilirubin, Total 0.2 - 1.3 mg/dL 0.4 Alkaline Phosphatase 34 - 123 U/L 130 (H) AST 13 - 35 U/L 24 ALT 7 - 38 U/L 11 Glucose 74 - 99 mg/dL 97 BUN 7 - 21 mg/dL 19 Creatinine 0.58 - 0.96 mg/dL 0.96 Sodium 136 - 144 mmol/L 139 Potassium 3.7 - 5.1 mmol/L 3.9 Chloride 98 - 107 mmol/L 102 CO2 22 - 30 mmol/L 28 Anion Gap 8 - 15 mmol/L 9 eGFR >=60 mL/min/1.73m? 61 Protein, Urine Random 0 - 20 mg/dL 5 Creatinine, Ur Random (UCRR) 42.2 - 237.9 mg/dL 58.1 Protein/Creat Ratio <0.15 mg/mg 0.09 Calcium, 24 Hr Urine 100.0 - 300.0 mg/24 hr 79.8 (L) Period hr 24 Urine Volume 24 hour mL 1,450 PTH, Intact 15 - 65 pg/mL 70 (H) Imaging Reports: SEE EPIC CD of Images: SEE EPIC FNA: no FNA Slides: N/A Has the patient ever had thyroid or parathyroid surgery before: No Operative Reports: NONE AVAILABLE Pathology Reports: NONE AVAILABLE Allergies As of Date: 07/18/2024 Noted Allergy Reaction ADHESIVE TAPE (ROSINS) 02/21/2004 2 - Rash POLYSPORIN (BACITRACIN-POLYMYXIN *11/06/2009 7 - Swelling AUGMENTIN (AMOXICILLIN-POT CLAVUL*10/17/2009 11 - Vomiting HYDROCODONE-ACETAMINOPHEN 10/06/2016 8 - GI Upset PROPOXYPHENE 02/21/2004 11 - Vomiting SKELAXIN (METAXALONE) 11/25/2015 14 - Other: See Comments Comments: Rapid heartbeat Date Reviewed: 07/06/2024 Reviewed by: Deepti Gallagher MA - Fully Assessed Reason for Visit: Consult [173] Cmt: FACE SHEET Primary Visit Diagnosis: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 - TOPROL XL 25 mg 24 hr tablet Take 25 mg by mouth once daily. - vit A,C,V-Xmsm-Wzcere (PRESERVISION AREDS) 2,148 mcg-113 mg-45 mg-17.4mg tab Take 1 tablet by mouth daily with breakfast. - aspirin 81 mg cap Take 1 tablet by mouth once daily. - levothyroxine (SYNTHROID) 75 mcg tablet Take 75 mcg by mouth once daily. - biotin 5 mg caspule Take 5,000 mcg by mouth once daily. - INCRUSE ELLIPTA 62.5 mcg/actuation inhaler Inhale 1 Puff as instructed once daily. - magnesium oxide (MAG-OX) 400 mg (241.3 mg magnesium) tablet Take 400 mg by mouth once daily. - EASIVENT 1 Device one time only. - cholecalciferol (VITAMIN D3) 50 mcg (2,000 unit) tablet Take 2,000 Units by mouth once daily. - polyethylene glycol 3350 (MIRALAX, GLYCOLAX) 17 gram/dose powder Take 17 g by mouth as needed. - famotidine (PEPCID AC ORAL) Take 20 mg by mouth as needed. - dicyclomine (BENTYL) 10 mg capsule Take 10 mg by mouth before meals and at bedtime. - Minoxidil 5 % soln Apply 1 application to affected area once daily. - albuterol HFA (PROVENTIL HFA) 90 mcg/actuation inhaler Inhale 2 Puffs as instructed four times daily as needed for Wheezing/Shortness of Breath. - folic acid 1 mg tablet Take 1 tablet by mouth once daily. - LIPITOR 10MG TABLET Take 10 mg by mouth once daily. Problem List As Of Date 07/18/2024 Noted Resolved CONSTIPATION NOS [K59.00] 07/02/2005 PERS HX SKIN MALIGNANCY NEC [Z85.828] 05/12/2006 Abdominal Pain, Other Specified Site [R10.9] Fibromyalgia [M79.7] Tingling [R20.2] 02/11/2012 B12 deficiency [E53.8] 02/11/2012 Hypothyroid [E03.9] 02/11/2012 Peripheral neuropathy [G62.9] 02/11/2012 Head pain [R (more content not included)... Normal [facility] Calcium SerPl-ncon 025 Calcium [Mass/Vol] 9.9 mg/dL Normal 8.5-10.2 [facility] Comment on above: Order Comment: Speci men Type: BLOOD SPECIMENOrdering Facility: [facility] Address: [address] [place] [address] Performed By: #### 1 7861-6, 2777-1 ####[facility] LABORATORYCLIA [id number] [place] [address] [place] Calcium.ionized [Moles/Vol]o n 07-18-2024 Calcium.ionized (Bld) [Mass/Vol] 1.4 mmol/L High 1.08 - 1.30 mmol/L [facility] Calcium.ionized adjusted to pH 7.4 (Bld) [Moles/Vol] 1.32 mmol/L High 1.08 - 1.30 mmol/L [facility] Interpretation and review of laboratory results Abnormal [facility] Calcium.ionized (Bld) [Mass/Vol] 1.40 mmol/L High 1.08-1.30 [facility] Comment on above: Order Comment: Speci men Type: BLOOD SPECIMENOrdering Facility: [facility] Address: [address] [place] [address] Performed By: #### 1 995-0 ####[facility] [id number] [address] [place] Calcium.ionized adjusted to pH 7.4 (Bld) [Moles/Vol] 1.32 mmol/L High 1.08-1.30 [facility] Comment on above: Order Comment: Speci men Type: BLOOD SPECIMENOrdering Facility: [facility] Address: [address] [place] [address] Performed By: #### 1 995-0 ####[facility] C[facility]USIA [id number] [place] [address] [place] Dexa Bone Density Studyon Dexa Bone Density Study [facility] Imaging Services [address] [place] [id number] Dexa Bone Density Study MR#: [id number] Acct: [id number] Name: CHERIE JIMENEZ Rep #: [id number] : 1945 F 78 From: Audie ziegler MD PCP: Dr. Alyce Cantrell MD Status: [facility] Study: Dexa Bone Density Study Date of Exam: 07/18/24 Exam# [id number] Ordering Dr: MILETI,SCARLETT PROCEDURE: DEXA BONE DENSITY STUDY REASON FOR EXAM: F, age 78 y/o . Postmenopausal. TECHNIQUE: DEXA scan of the lumbar spine and both hips. COMPARISON: Comparison is made with prior study dated December 19, 2018. FINDINGS: Lumbar Spine (L1-L4): g/cm2 (0.806)/T-score (-2.2)/Z-score (0.4) findings are suggestive of osteopenia with a high fracture risk. Left Femur Total: g/cm2 (0.760)/T-score (-1.5)/Z-score (0.5) Left Femoral Neck: g/cm2 (0.768)/T-score (-0.7)/Z-score (1.5) Right Femur Total: g/cm2 (0.732)/T-score (-1.7)/Z-score (0.3) Right Femoral Neck: g/cm2 (0.711)/T-score (-1.2)/Z-score (1.0) Right Forearm: g/cm2 (0.362)/T-score (-4.0)/Z-score (-1.2) Left Forearm: g/cm2 ( ) / T-score ( ) / Z-score ( ) BD/Dexa Bone Density Study IMPRESSION: The patient is considered osteoporotic as outlined below according to World Bert Organization (WHO) criteria with a high fracture risk. There has been worsening of bone density since the previous examination. Reading Location: [id number] CC: Dr. Alyce Cantrell MD; SCARLETT CABRERA Gas Golf Cart Repairer: Signed Normal [facility] PTH-Intact SerPl-ncon 03-0 Parathyrin.intact [Mass/Vol] 108 pg/mL High 15-65 [facility] Comment on above: Order Comment: Speci men Type: BLOOD SPECIMENOrdering Facility: [facility] Address: [address] [place], [place] [address] Result Comment: Test methodology for this assay has moved from Siemens Centaur XP to Carlito cliff 8000 effective February 16, 2022. Please note there may be a change in the reporting units and/or reference range. Performed By: #### 2 731-8 ####[facility] LABORATORYCLIA [id number] [place] [address] [place] Phosphate SerPl-mCncon 07-18 Phosphate [Mass/Vol] 3.8 mg/dL Normal 2.7-4.8 [facility] Comment on above: Order Comment: Speci men Type: BLOOD SPECIMENOrdering Facility: [facility] Address: [facility] [place] [address] Performed By: #### 1 7861-6, 2777-1 ####[facility] LABORATORYCLIA [id number] [place] [address] [place] Pulmonary Visit Reporton Pulmonary Visit Report [facility] [place] [address] [place], [place] [address] OFFICE VISIT Date of Service: 07/17/24 MR#: [id number] Acct: [id number] Name: CHERIE JIMENEZ Rep #: [id number] : 1945 Provider: Joelle Nieto NP Age/Sex: 78/F Location: [facility] Status: Signed Assessment and Plan Assessment and Plan (1) COPD (chronic obstructive pulmonary disease) with acute bronchitis: Status: Acute Plan: Stable without exacerbation today. The patient remains controlled on Incruse and as needed albuterol and I recommend that she continue with this regimen. The patient was advised to contact our office with any worsening in her breathing quality and/or increasing reliance on her short acting beta agonist. The patient does not have an updated PFT or 6-minute walk test, if her respiratory symptoms worsen then I will recommend further testing at that time. Her Incruse prescription has been updated to reflect a 3-month prescription with 3 refills as requested from patient today. (2) Multiple nodules of lung: Status: Acute Plan: New nodules identified on CT imaging include: 4 mm nodule of the right upper lobe on axial image 51. 2 mm nodule of the right upper lobe on axial image 87. 3 mm nodule of the right upper lobe on axial image 49. They measure less than 6 mm. I have recommended repeating the CT scan 6 months from previous scan and have ordered accordingly. The patient will follow-up in 6 months to review imaging. The patient is agreeable to this plan. These nodules could have been present due to viral illness that she experienced. Orders: Orders Chest without Contrast 5 Months R91.8 - Other nonspecific abnormal finding of lung field Medications: Refilled umeclidinium 62.5 mcg/actuation (Incruse Ellipta) 1 inh inhalation Q24H 3 ea 3RF COPD J44.9 Plan Details Follow Up: 6 Months (LMR) HPI HPI Comments Details: Patient is a 78-year-old female who presents to the clinic today to review recent testing. She does have underlying COPD. If you recall, the patient initially transferred her care here from her previous provider at [facility]. The patient presented with an established diagnosis of COPD and had already completed pulmonary rehabilitation. She is being actively monitored in the low-dose screening protocol. The patient does have a previous smoking history of 1 pack per day ???50 years, having quit completely in May 2015. Pulmonary function testing completed in October 2017 revealed evidence of an irreversible moderately severe large airways obstructive ventilatory defect with associated hyperinflation, air trapping and reduction in diffusing capacity. If you recall, the patient previously had developed side effects to a multitude of different inhalers tried from different classes including LABA/ICS inhalers and combination LABA/LAMA inhalers. Side effect to inhalers include feeling dizzy, lightheaded, trouble driving. She reports that it aggravated her fibromyalgia. CT chest from June 2023 demonstrated bilateral emphysematous changes with scarring in the right lung apex. She remains on Incruse and as needed albuterol. She has resumed her regular exercise routine. On average, the patient only utilizes her rescue inhaler before her exercise regimen. She denies wheeze cough. She does have shortness of breath on exertion that has worsened with going up inclines but not to the point where she requires her albuterol inhaler. She denies chest pain and chest tightness. She denies fever, chills, body aches. She was last hospitalized for COPD excerbation in May 2023. She does report in April of 2024 she had increased shortness of breath at night and took rescue inhaler she did not have a hay sorter at that time so she did report to the local ER and was placed on beta-nickolas for PVCs. She reports that she underwent a nuclear stress test and continues with use of beta-nickolas. She indicates that she was sick in May and went to her local family doctor for which she was swabbed for covid/rsv/influenza which was a send out test. She indicates that she was called and told she had the flu and was given tamiflu at the 72-hour son. She reports she completed this prescription. She reports that it was not significantly beneficial to her. She had previously been referred to block captain in the [facility] system and the test for parathyroid are elevated so she is seeing an endocrinology surgeon next week. Documentation reviewed with patient today includes: Low-dose screening lung CT from June 22, 2024 shows new pulmonary nodules in the right upper lobe measuring up to 4 mm and the previously noted pulmonary nodules are stable. The recommendation is to repeat a chest CT in 6 months. Intake Vital Signs 07/27/23 06:31 05/30/24 08:31 (more content not included)... Normal [facility] CALCIUM, 24 HR URINEon 07-10 Calcium (24H U) [Mass/Time] 79.8 mg/24 hr Low 100.0-300. 0 [facility] Comment on above: Order Comment: Speci men Type: URINE SPECIMEN Ordering Facility: [facility] Address: [address] [place] [address] Performed By: #### 2 890-2 #### [facility] CLIA [id number] 1 [place] [address] [place] PERIOD (HRS) 24 hr Normal [facility] Comment on above: Order Comment: Speci men Type: URINE SPECIMEN Ordering Facility: [facility] Address: [address] [place] [address] Performed By: #### 2 890-2 #### [facility] CLIA [id number] 1 [place] [address] [place] Specimen volume (24H U) 1.45 L Normal C [facility] Comment on above: Order Comment: Speci men Type: URINE SPECIMEN Ordering Facility: [facility] Address: [address] [place] [address] Performed By: #### 2 890-2 #### [id number] 1 [place] [id number] [place] [facility] Dheeraj 07-09-2024 BETY Telephone (STEPHON) ----- CHERIE JIMENEZ ([id number]) 1945 F YBB Date Time Provider Department 07/09/24 SCARLETT CABRERA During your visit today, we recorded the following information about you: Jeri Elizalde 07/09/2024 11:56 AM Signed Dania from [facility] is calling Scarlett Cabrera MD today to request correction to existing order. Dania asked for the following order to be corrected to show [employer] Please fax order to [phone] Call Back #: [phone] option 1 Patient has been identified by name and birthdate. Savita Bradley RN 07/09/2024 4:06 PM Signed Faxed via [employer] Allergies As of Date: 07/09/2024 Noted Allergy Reaction ADHESIVE TAPE (ROSINS) 02/21/2004 2 - Rash POLYSPORIN (BACITRACIN-POLYMYXIN *11/06/2009 7 - Swelling AUGMENTIN (AMOXICILLIN-POT CLAVUL*10/17/2009 11 - Vomiting HYDROCODONE-ACETAMINOPHEN 10/06/2016 8 - GI Upset PROPOXYPHENE 02/21/2004 11 - Vomiting SKELAXIN (METAXALONE) 11/25/2015 14 - Other: See Comments Comments: Rapid heartbeat Date Reviewed: 07/06/2024 Reviewed by: Deepti Gallagher MA - Fully Assessed Reason for Visit: Orders [681] Prescriptions as of 07/09/2024 - cyanocobalamin 1,000 mcg/mL Inject 1,000 mcg intramuscularly once every month. - TOPROL XL 25 mg 24 hr tablet Take 25 mg by mouth once daily. - vit A,C,V-Vxlq-Rkedft (PRESERVISION AREDS) 2,148 mcg-113 mg-45 mg-17.4mg tab Take 1 tablet by mouth daily with breakfast. - aspirin 81 mg cap Take 1 tablet by mouth once daily. - levothyroxine (SYNTHROID) 75 mcg tablet Take 75 mcg by mouth once daily. - biotin 5 mg caspule Take 5,000 mcg by mouth once daily. - INCRUSE ELLIPTA 62.5 mcg/actuation inhaler Inhale 1 Puff as instructed once daily. - magnesium oxide (MAG-OX) 400 mg (241.3 mg magnesium) tablet Take 400 mg by mouth once daily. - EASIVENT 1 Device one time only. - cholecalciferol (VITAMIN D3) 50 mcg (2,000 unit) tablet Take 2,000 Units by mouth once daily. - polyethylene glycol 3350 (MIRALAX, GLYCOLAX) 17 gram/dose powder Take 17 g by mouth as needed. - famotidine (PEPCID AC ORAL) Take 20 mg by mouth as needed. - dicyclomine (BENTYL) 10 mg capsule Take 10 mg by mouth before meals and at bedtime. - Minoxidil 5 % soln Apply 1 application to affected area once daily. - albuterol HFA (PROVENTIL HFA) 90 mcg/actuation inhaler Inhale 2 Puffs as instructed four times daily as needed for Wheezing/Shortness of Breath. - folic acid 1 mg tablet Take 1 tablet by mouth once daily. - LIPITOR 10MG TABLET Take 10 mg by mouth once daily. Problem List As Of Date 07/09/2024 Noted Resolved CONSTIPATION NOS [K59.00] 07/02/2005 PERS HX SKIN MALIGNANCY NEC [Z85.828] 05/12/2006 Abdominal Pain, Other Specified Site [R10.9] Fibromyalgia [M79.7] Tingling [R20.2] 02/11/2012 B12 deficiency [E53.8] 02/11/2012 Hypothyroid [E03.9] 02/11/2012 Peripheral neuropathy [G62.9] 02/11/2012 Head pain [R51.9] 02/11/2012 Migraine [G43.909] 02/11/2012 Loss of smell [R43.0] 02/11/2012 Hyperglycemia [R73.9] 02/11/2012 Alopecia [L65.9] 08/28/2014 Encounter Status:Closed by SAVITA BAILEY on 07/09/24 Normal [facility] CNOVon 07-06-2024 CNOV Office Visit (RHEUMN ) ----- CHERIE JIMENEZ ([id number]) 1945 F YBB Date Time Provider Department 07/06/24 2:20 PM SCARLETT CABRERA During your visit today, we recorded the following information about you: Temperature Pulse Blood pressure Weight 97.7 degrees 65/minute 109/69 60.6 kg Height 1.626 m Scarlett Cabrera MD 07/06/2024 3:21 PM Signed F/u positive RANDELL HPI: Joint pain is the same. Has a pain going down the outside of the left leg to the ankle. Occurs while in bed as she lays on that side. It wakes her up at night, has to flip to the other side. It is affecting her sleep. As she is walking around during the day, it's fine. No significant low back pain. No joint swelling. Reports a lot of fatigue and feels cold all the time. Can fall asleep easily during the day. Started around 12/2023. This is atypical for her. On synthroid and follows with PCP 12/2023: About 5-6 months ago she started to get pain in the wrists and hands. No swelling. Dorsum of hands and PIPs. Has a known ganglion cyst on left wrist. She is very stiff in the morning - hips and knees, not too much in the hands. With standing a lot, her back gets sore and has to sit down. Back is stiff with sitting for a while. She gets pain on the sides of the hip down the leg while sleeping at night. It wakes her at night and then has to switch sides. Then it happens on the other side. So constantly rolling from side to side. Also gets hot flashes at night and urinating in the night. Sleep interrupted and gets tired during the day. Sometimes naps. Saw PCP in September who prescribed HCQ 100mg daily for 3 weeks with no issues, then increased to 200mg but she developed nausea/abd pain. Went back to 100mg for a few weeks and since there was no improvement in her symptoms, she stopped it. Has known FMS, SFN, IBS, familial tremor. She is not taking any medications for pain. Has tried gabapentin/lyrica/cymbalt a/amitriptyline - either not helpful or had an adverse reaction. Very sensitive to meds. SFN affect feet/hands. Follows with Dr. Hdez's office. Denies severe dry eyes/mouth, although her eyes bother her by midafternoon on some days. No swollen glands. 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 Had a TIA 12/2022 and now on a baby aspirin. Son diagnosed with psoriatic arthritis/?RA. Patient does not have psoriasis. , Bhargav, patient in this practice, 07/2022. 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, basal cell and squamous cell Thoracic outlet syndrome 1985 1st rib resection FAMILY HISTORY Problem Relation Age of Onset Coronary Artery Disease Father other (tremors) Father siblings other (syringomyelia) Father Prostate Cancer Brother other (Senile Dementia) Mother other (hemiplegic migraines) Son PAST SURGICAL HISTORY Procedure Laterality Date CATARACT EXTRACTION HX right eye CHOLECYSTECTOMY 07/2014 COLONOSCOPY FLX DX W/COLLJ SPEC WHEN PFRMD 01/31/2013 Colonoscopy PAST SURGICAL HISTORY OF hyster PAST SURGICAL HISTORY OF appendectomy PAST SURGICAL HISTORY OF tubal PAST SURGICAL HISTORY OF tonsils PAST SURGICAL HISTORY OF 1999 Moh's procedure Social History Tobacco Use Smoking status: Former Current packs/day: 0.00 Average packs/day: 1 pack/day for 50.0 years (50.0 ttl pk-yrs) Types: Cigarettes Start date: 1965 Quit date: 05/19/2015 Years since quittin.1 Smokeless tobacco: Never Substance Use Topics Alcohol use: No Drug use: Never Allergies: ALLERGIES Allergen Reactions Adhesive Tape (Chanel* Rash Polysporin [Bacitra* Swelling Augmentin [Amoxicil* Vomiting Hydrocodone-Acetami* GI Upset Propoxyphene Vomiting Skelaxin [Metaxalon* Other: See Comments Rapid heartbeat Medications: cyanocobalamin 1,000 mcg/mL Inject 1,000 mcg intramuscularly once every month. TOPROL XL 25 mg 24 hr tablet Take 25 mg by mouth once daily. vit A,C,I-Ajqq-Euxtws (PRESERVISION AREDS) 2,148 mcg-113 mg-45 mg-17.4mg tab Take 1 tablet by mouth daily with breakfast. aspirin 81 mg cap Take 1 tablet by mouth once daily. levothyroxine (SYNTHROID) 75 mcg tablet Take 75 mcg by mouth once daily. biotin 5 mg caspule Take 5,000 mcg by mouth once daily. INCRUSE ELLIPTA 62.5 mcg/actuation inhaler Inhale 1 Puff as instructed once daily. EASIVENT 1 Device one time only. cholecalciferol (VITAMIN D3) 50 mcg (2,000 unit) tablet Take 2,000 Units by mouth once daily. polyethylene glycol 3350 (MIRALAX, GLY (more content not included)... Normal [facility] Large Joint Arthro/Inj: L gr eater trochanteric bursaon 07-06-2024 Scarlett Cabrera MD 07/06/2024 3:21 PM Large Joint Arthro/Inj: L greater trochanteric bursa 07/06/2024 2:49 PM The procedure site was prepped in the usual sterile fashion. Site: L greater trochanteric bursa Medications: 40 mg triamcinolone acetonide 40 mg/mL Anesthetics: 1 mL lidocaine (PF) 10 mg/mL (1 %) Outcome: Tolerated well, no immediate complications Post-injection instructions were reviewed with the patient and the patient voiced understanding of these instructions. Informed Consent Consent Obtained: Verbal Enola Protocol A moment to CARE was completed. SIGN IN Personnel directly involved with the procedure wore the appropriate PPE. Patient/Surrogate Stated/Verified: Patient name, Intended procedure, Relevant allergies and Date of TIME OUT Relevant labs, photos, and/or imaging studies have been reviewed. Intended patient and procedure match the source document(s). Consent documented and matches the intended procedure. Correct side/site marked and visible. Medications required for procedure verified. [facility] PTH-Intact SerPl-mCncon - Parathyrin.intact [Mass/Vol] 70 pg/mL High 15-65 [facility] Comment on above: Order Comment: Speci men Type: URINE SPECIMEN Ordering Facility: [facility] Address: [address] [place] [address] Result Comment: Test methodology for this assay has moved from [employer] to [employer] cliff 8000 effective February 16, 2022. Please note there may be a change in the reporting units and/or reference range. Performed By: #### 2 890-2 #### [facility] CLIA [id number] [address] [place] [facility] Prot/Creat Uron 06-28-2024 Protein/Creatinine (U) [Mass ratio] 0.09 mg/mg Normal <0.15 [facility] Comment on above: Order Comment: Speci men Type: URINE SPECIMEN Ordering Facility: [facility] Address: [address] [place] [address] Result Comment: Adul t Proteinuria Categories: <0.15 mg/mg is considered normal to mildly increased 0.15 - 0.50 mg/mg is considered moderately increased >0.50 mg/mg is considered severely increased KDIGO. (2013). KDIGO 2012 Clinical Practice Guideline for the Evaluation and Management of Chronic Kidney Disease. Official Journal of the International Society of Nephrology, 3(1), 1-150. Performed By: #### 2 890-2 #### [facility] CLIA [id number] [address] [place] [facility] Protein/Creatinine (U) [Mass ratio]on 06-28-2024 Creatinine (U) [Mass/Vol] 58.1 mg/dL Normal 42.2-237.9 [facility] Comment on above: Order Comment: [facility] Type: URINE SPECIMEN Ordering Facility: [facility] Address: [address] [place] [address] Performed By: #### 2 890-2 #### [facility] CLIA [id number] 1 [place] [address] [place] Protein (U) [Mass/Vol] 5 mg/dL Normal 0-20 Cl [facility] Comment on above: Order Comment: Speci men Type: URINE SPECIMEN Ordering Facility: [facility] Address: [address] [place] [address] Performed By: #### 2 890-2 #### [facility] CLIA [id number] [address] [place] Urinalysis complete panel (U )on 06-28-2024 Bilirubin Ql (U) Negative Normal Negative [facility] Comment on above: Order Comment: Speci men Type: URINE SPECIMENOrdering Facility: [facility] Address: [address] [place] [address] Performed By: #### 2 4356-8 ####[facility]ORYCLIA [id number] [address] [place] Clarity (Unsp spec) Clear Normal Clear [facility] Comment on above: Order Comment: Speci men Type: URINE SPECIMENOrdering Facility: [facility] Address: [address] [place] [address] Performed By: #### 2 4356-8 ####[facility]indexPLE[facility]ORATORYIA [id number] [address] Color (U) Colorless Normal yellow [facility] Comment on above: Order Comment: Speci men Type: URINE SPECIMENOrdering Facility: [facility] Address: [address] [place] [address] Performed By: #### 2 4356-8 ####[facility]ORY[facility]IA [id number] [address] [place] Glucose Test strip (U) [Mass/Vol] Negative Normal Trace, Negative [facility] Comment on above: Order Comment: Speci men Type: URINE SPECIMENOrdering Facility: [facility] Address: [address] [place] [address] Performed By: #### 2 4356-8 ####[facility] [id number] [place] [address] [place] Hemoglobin Ql (U) Negative Normal Negative, Trace [facility] Comment on above: Order Comment: Speci men Type: URINE SPECIMENOrdering Facility: [facility] Address: [address] [place] [address] Performed By: #### 2 4356-8 ####[facility] [id number] [place] [address] [place] Ketones Ql (U) Negative Normal Negative, Trace [facility] Comment on above: Order Comment: Speci men Type: URINE SPECIMENOrdering Facility: [facility] Address: [address] [place] [address] Performed By: #### 2 4356-8 ####[facility] [id number] [address] [place] Leukocyte esterase Test strip Ql (U) Negative Normal Negative, 25 Frank/uL [facility] Comment on above: Order Comment: Speci men Type: URINE SPECIMENOrdering Facility: [facility] Address: [address] [place] [address] Performed By: #### 2 4356-8 ####[facility] [id number] [address] [place] Nitrite Ql (U) Negative Normal Negative [facility] Comment on above: Order Comment: Speci men Type: URINE SPECIMENOrdering Facility: [facility] Address: [address] [place] [address] Performed By: #### 2 4356-8 ####[facility] [id number] [address] [place] pH (U) 7.0 [pH] Normal 5.0-8.0 [facility] Comment on above: Order Comment: Speci men Type: URINE SPECIMENOrdering Facility: [facility] Address: [address] [place] [address] Performed By: #### 2 4356-8 ####[facility]ORY[facility]IA [id number] [place] [address] [place] Protein (U) [Mass/Vol] Negative Normal Trace , Negative [facility] Comment on above: Order Comment: Speci men Type: URINE SPECIMENOrdering Facility: [facility] Address: [address] [place] [address] Performed By: #### 2 4356-8 ####[facility]ORYCLIA [id number] [place] [address] [place] RBC LM.HPF (Urine sed) [#/Area] 0-3 /HPF Normal 0-3 /HPF [facility] Comment on above: Order Comment: Speci men Type: URINE SPECIMENOrdering Facility: [facility] Address: [address] [place] [address] Performed By: #### 2 4356-8 ####[facility]ORYCLIA [id number] [address] [place] Specific gravity (U) [Rel density] 1.009 Normal 1.005-1.03 0 [facility] Comment on above: Order Comment: Speci men Type: URINE SPECIMENOrdering Facility: [facility] Address: [address] [place] [address] Performed By: #### 2 4356-8 ####[facility]ORYCLIA [id number] [address] [place] Urobilinogen Ql (U) Normal Normal Normal [facility] Comment on above: Order Comment: Speci men Type: URINE SPECIMENOrdering Facility: [facility] Address: [address] [place] [address] Performed By: #### 2 4356-8 ####[facility]ORYCLIA [id number] [address] [place] WBC LM.HPF (Urine sed) [#/Area] 0-5 /HPF Normal 0-5 /HPF [facility] Comment on above: Order Comment: Speci men Type: URINE SPECIMENOrdering Facility: [facility] Address: [address] [place] [address] Performed By: #### 2 4356-8 ####[facility]ORYCLIA [id number] [address] [place] [facility] RANDELL BY IFA SCREENon 06-27-19 25 Nuclear Ab pattern (S) [Interp] Nuclear fine speckled Normal [facility] Comment on above: Order Comment: Speci men Type: URINE SPECIMEN Ordering Facility: [facility] Address: [address] [place] [address] Performed By: #### 2 890-2 #### [facility] CLIA [id number] [address] [place] [address] [place] Nuclear Ab Ql (S) Positive Abnormal Negative [facility] Comment on above: Order Comment: Speci men Type: URINE SPECIMEN Ordering Facility: [facility] Address: [address] [place] [address] Result Comment: Anti -nuclear antibody test is used as an aid in diagnosis of systemic autoimmune diseases. Where positive and clinically warranted, follow-up using disease-specific testing is recommended. Low positive titers are not uncommon with advanced age, certain chronic infections, and malignancies among others. Test methodology: Indirect fluorescence immunoassay (IFA) using HEp-2 cells. 1:640 Performed By: #### 2 890-2 #### [facility] CLIA [id number] [address] [place] [address] [place] C3 SerPl-mCncon 06-27-2024 Complement C3 [Mass/Vol] 137 mg/dL Normal 86-166 [facility] Comment on above: Order Comment: Speci men Type: BLOOD SPECIMENOrdering Facility: [facility] Address: [address] [place] [address] Performed By: #### 4 485-9, 4498-2 ####[facility]CLIA [id number] [place] [address] [place] C4 SerPl-mCncon 06-27-2024 Complement C4 [Mass/Vol] 14 mg/dL Normal 13-46 [facility] Comment on above: Order Comment: Speci men Type: BLOOD SPECIMENOrdering Facility: [facility] Address: [address] [place] [address] Performed By: #### 4 485-9, 4498-2 ####[facility] LABCLIA [id number] [place] [address] [place] CBC W Auto Differential pane l (Bld)on 06-27-2024 Basophils (Bld) [#/Vol] 0.03 10*3/uL [facility] Basophils/100 WBC (Bld) 0.4 % C [facility] Differential cell count method Nom (Bld) Auto [facility] Eosinophils (Bld) [#/Vol] 0.2 10*3/uL [facility] Eosinophils/100 WBC (Bld) 2.9 % [facility] Erythrocyte distribution width (RBC) [Ratio] 14.2 % 11.5 - 15.0 % [facility] Hematocrit (Bld) [Volume fraction] 45 % 36.0 - 46.0 % [facility] Hemoglobin (Bld) [Mass/Vol] 14.8 g/dL 11.5 - 15.5 g/dL [facility] Immature granulocytes (Bld) [#/Vol] [facility] Immature granulocytes/100 WBC (Bld) 0.1 % [facility] Lymphocytes (Bld) [#/Vol] 1.65 10*3/uL [facility] Lymphocytes/100 WBC (Bld) 24.3 % [facility] MCH (RBC) [Entitic mass] 29.2 pg 26. 0 - 34.[address] [facility] MCHC (RBC) [Mass/Vol] 32.9 g/dL 30.5 - 36.0 g/dL [facility] MCV (RBC) [Entitic vol] 88.8 fL 80.0 - 100.[address] [facility] Monocytes (Bld) [#/Vol] 0.46 10*3/uL [facility] Monocytes/100 WBC (Bld) 6.8 % C [facility] Neutrophils (Bld) [#/Vol] 4.45 10*3/uL [facility] Neutrophils/100 WBC (Bld) 65.5 % [facility] Nucleated RBC (Bld) [#/Vol] [facility] Nucleated RBC/100 WBC (Bld) [Ratio] 0 % /[address] [facility] Platelet mean volume (Bld) [Entitic vol] 10.9 fL 9.0 - 12.[address] [facility] Platelets (Bld) [#/Vol] 252 10*3/uL [facility] RBC (Bld) [#/Vol] 5.07 10*6/uL 3.90 - 5.20 m/uL [facility] WBC (Bld) [#/Vol] 6.8 10*3/uL [facility] Basophils (Bld) [#/Vol] 0.03 10*3/uL Normal <0.11 [facility] Comment on above: Order Comment: Speci men Type: BLOOD SPECIMENOrdering Facility: [facility] Address: [address] [place] [address] Performed By: #### 5 7021-8 ####[facility] [id number] [place] [address] [place] Basophils/100 WBC (Bld) 0.4 % Normal C [facility] Comment on above: Order Comment: Speci men Type: BLOOD SPECIMENOrdering Facility: [facility] Address: [address] [place] [address] Performed By: #### 5 7021-8 ####[facility] [id number] [place] [address] [place] Differential cell count method Nom (Bld) Auto Normal [facility] Comment on above: Order Comment: Speci men Type: BLOOD SPECIMENOrdering Facility: [facility] Address: [address] [place] [address] Performed By: #### 5 7021-8 ####[facility] [id number] [place] [address] [place] Eosinophils (Bld) [#/Vol] 0.20 10*3/uL Normal <0.46 [facility] Comment on above: Order Comment: Speci men Type: BLOOD SPECIMENOrdering Facility: [facility] Address: [address] [place] [address] Performed By: #### 5 7021-8 ####[facility] MILLCESIAWNCLIA [id number] [place] [address] [place] Eosinophils/100 WBC (Bld) 2.9 % Normal [facility] Comment on above: Order Comment: Speci men Type: BLOOD SPECIMENOrdering Facility: [facility] Address: [address] [place] [address] Performed By: #### 5 7021-8 ####[facility] LADONNAWNCLIA [id number] [place] [address] [place] Erythrocyte distribution width (RBC) [Ratio] 14.2 % Normal 11.5-15.0 [facility] Comment on above: Order Comment: Speci men Type: BLOOD SPECIMENOrdering Facility: [facility] Address: [address] [place] [address] Performed By: #### 5 7021-8 ####[facility] [id number] [place] [address] [place] Hematocrit (Bld) [Volume fraction] 45.0 % Normal 36.0-46.0 [facility] Comment on above: Order Comment: Speci men Type: BLOOD SPECIMENOrdering Facility: [facility] Address: [address] [place] [address] Performed By: #### 5 7021-8 ####[facility] LADONNAWNCLIA [id number] [place] [address] [place] Hemoglobin (Bld) [Mass/Vol] 14.8 g/dL Normal 11.5-15.5 [facility] Comment on above: Order Comment: Speci men Type: BLOOD SPECIMENOrdering Facility: [facility] Address: [address] [place], [place] [address] Performed By: #### 5 7021-8 ####[facility] [id number] [place] [address] [place] Immature granulocytes (Bld) [#/Vol] 10*3/uL Normal <0.10 [facility] Comment on above: Order Comment: Speci men Type: BLOOD SPECIMENOrdering Facility: [facility] Address: [address] [place] [address] Performed By: #### 5 7021-8 ####[facility] [id number] [place] [address] [place] Immature granulocytes/100 WBC (Bld) 0.1 % Normal [facility] Comment on above: Order Comment: Speci men Type: BLOOD SPECIMENOrdering Facility: [facility] Address: [address] [place] [address] Performed By: #### 5 7021-8 ####[facility] [id number] [place] [address] [place] Lymphocytes (Bld) [#/Vol] 1.65 10*3/uL Normal 1.00-4.0 0 [facility] Comment on above: Order Comment: Speci men Type: BLOOD SPECIMENOrdering Facility: [facility] Address: [address] [place] [address] Performed By: #### 5 7021-8 ####[facility] [id number] [place] [address] [place] Lymphocytes/100 WBC (Bld) 24.3 % Normal [facility] Comment on above: Order Comment: Speci men Type: BLOOD SPECIMENOrdering Facility: [facility] Address: [address] [place] [address] Performed By: #### 5 7021-8 ####[facility] [id number] [place] [address] [place] MCH (RBC) [Entitic mass] 29.2 pg Normal 26.0-34.0 [facility] Comment on above: Order Comment: Speci men Type: BLOOD SPECIMENOrdering Facility: [facility] Address: [address] [place] [address] Performed By: #### 5 7021-8 ####[facility] LADONNAWNCJODYA [id number] [place] [address] [place] MCHC (RBC) [Mass/Vol] 32.9 g/dL Normal 30.5-36.0 [facility] Comment on above: Order Comment: Speci men Type: BLOOD SPECIMENOrdering Facility: [facility] Address: [address] [place] [address] Performed By: #### 5 7021-8 ####[facility] [id number] [place] [address] [place] MCV (RBC) [Entitic vol] 88.8 fL Normal 80.0-100.0 C [facility] Comment on above: Order Comment: Speci men Type: BLOOD SPECIMENOrdering Facility: [facility] Address: [address] [place] [address] Performed By: #### 5 7021-8 ####[facility] [id number] [place] [address] [place] Monocytes (Bld) [#/Vol] 0.46 10*3/uL Normal <0.87 [facility] Comment on above: Order Comment: Speci men Type: BLOOD SPECIMENOrdering Facility: [facility] Address: [address] [place] [address] Performed By: #### 5 7021-8 ####[facility] [id number] [address] [place] Monocytes/100 WBC (Bld) 6.8 % Normal C [facility] Comment on above: Order Comment: Speci men Type: BLOOD SPECIMENOrdering Facility: [facility] Address: [address] [place] [address] Performed By: #### 5 7021-8 ####[facility] MILLTOWNCLIA [id number] [place] [address] [place] Neutrophils (Bld) [#/Vol] 4.45 10*3/uL Normal 1.45-7.5 0 [facility] Comment on above: Order Comment: Speci men Type: BLOOD SPECIMENOrdering Facility: [facility] Address: [address] [place] [address] Performed By: #### 5 7021-8 ####[facility] MILLWNCLIA [id number] [place] [address] [place] Neutrophils/100 WBC (Bld) 65.5 % Normal [facility] Comment on above: Order Comment: Speci men Type: BLOOD SPECIMENOrdering Facility: [facility] Address: [address] [place] [address] Performed By: #### 5 7021-8 ####[facility] [id number] [place] [address] [place] Nucleated RBC (Bld) [#/Vol] 10*3/uL Normal <0.01 [facility] Comment on above: Order Comment: Speci men Type: BLOOD SPECIMENOrdering Facility: [facility] Address: [address] [place] [address] Performed By: #### 5 7021-8 ####[facility] MILLTOWNCLIA [id number] [place] [address] [place] Nucleated RBC/100 WBC (Bld) [Ratio] 0.0 /100 WBC Normal [facility] Comment on above: Order Comment: Speci men Type: BLOOD SPECIMENOrdering Facility: [facility] Address: [address] [place] [address] Performed By: #### 5 7021-8 ####[facility] MILLWNCLIA [id number] [place] [address] [place] Platelet mean volume (Bld) [Entitic vol] 10.9 fL Normal 9.0-12.7 [facility] Comment on above: Order Comment: Speci men Type: BLOOD SPECIMENOrdering Facility: [facility] Address: [address] [place] [address] Performed By: #### 5 7021-8 ####[facility] [id number] [place] [address] [place] Platelets (Bld) [#/Vol] 252 10*3/uL Normal 150-400 [facility] Comment on above: Order Comment: Speci men Type: BLOOD SPECIMENOrdering Facility: [facility] Address: [address] [place] [address] Performed By: #### 5 7021-8 ####[facility] [id number] [place] [address] [place] RBC (Bld) [#/Vol] 5.07 10*6/uL Normal 3.90-5.20 [facility] Comment on above: Order Comment: Speci men Type: BLOOD SPECIMENOrdering Facility: [facility] Address: [address] [place] [address] Performed By: #### 5 7021-8 ####[facility] [id number] [place] [address] [place] WBC (Bld) [#/Vol] 6.80 10*3/uL Normal 3.70-11.00 [facility] Comment on above: Order Comment: Speci men Type: BLOOD SPECIMENOrdering Facility: [facility] Address: [address] [place] [address] Performed By: #### 5 7021-8 ####[facility] [id number] [place] [address] [place] CNPNon 06-27-2024 CNPN Telephone (YARAUCGrover) ----- JOECHERIE MÁRQUEZ ([id number]) 1945 F YBB Date Time Provider Department 06/27/24 SCARLETT CABRERA During your visit today, we recorded the following information about you: Savita Bailey RN 06/27/2024 4:04 PM Signed ----- Message from Scarlett Cabrera MD sent at 06/27/2024 3:59 PM EST ----- Regarding: add on lab Please call lab to add on a PTH to blood drawn today. thanks Savita Bailey RN 06/27/2024 4:07 PM Signed Unable to add lab on Allergies As of Date: 06/27/2024 Noted Allergy Reaction ADHESIVE TAPE (ROSINS) 02/21/2004 2 - Rash POLYSPORIN (BACITRACIN-POLYMYXIN *11/06/2009 7 - Swelling AUGMENTIN (AMOXICILLIN-POT CLAVUL*10/17/2009 11 - Vomiting HYDROCODONE-ACETAMINOPHEN 10/06/2016 8 - GI Upset PROPOXYPHENE 02/21/2004 11 - Vomiting SKELAXIN (METAXALONE) 11/25/2015 14 - Other: See Comments Comments: Rapid heartbeat Date Reviewed: 12/23/2023 Reviewed by: Magdalena Guzmán MA - Fully Assessed Prescriptions as of 06/29/2024 - levothyroxine (SYNTHROID) 75 mcg tablet Take 75 mcg by mouth once daily. - biotin 5 mg caspule Take 5,000 mcg by mouth once daily. - INCRUSE ELLIPTA 62.5 mcg/actuation inhaler Inhale 1 Puff as instructed once daily. - magnesium oxide (MAG-OX) 400 mg (241.3 mg magnesium) tablet Take 400 mg by mouth once daily. - EASIVENT 1 Device one time only. - cholecalciferol (VITAMIN D3) 50 mcg (2,000 unit) tablet Take 2,000 Units by mouth once daily. - polyethylene glycol 3350 (MIRALAX, GLYCOLAX) 17 gram/dose powder Take 17 g by mouth as needed. - famotidine (PEPCID AC ORAL) Take 20 mg by mouth as needed. - dicyclomine (BENTYL) 10 mg capsule Take 10 mg by mouth before meals and at bedtime. - Minoxidil 5 % soln Apply 1 application to affected area once daily. - albuterol HFA (PROVENTIL HFA) 90 mcg/actuation inhaler Inhale 2 Puffs as instructed four times daily as needed for Wheezing/Shortness of Breath. - folic acid 1 mg tablet Take 1 tablet by mouth once daily. - LIPITOR 10MG TABLET Take 10 mg by mouth once daily. Problem List As Of Date 06/27/2024 Noted Resolved CONSTIPATION NOS [K59.00] 07/02/2005 PERS HX SKIN MALIGNANCY NEC [Z85.828] 05/12/2006 Abdominal Pain, Other Specified Site [R10.9] Fibromyalgia [M79.7] Tingling [R20.2] 02/11/2012 B12 deficiency [E53.8] 02/11/2012 Hypothyroid [E03.9] 02/11/2012 Peripheral neuropathy [G62.9] 02/11/2012 Head pain [R51.9] 02/11/2012 Migraine [G43.909] 02/11/2012 Loss of smell [R43.0] 02/11/2012 Hyperglycemia [R73.9] 02/11/2012 Alopecia [L65.9] 08/28/2014 Encounter Status:Closed by SAVITA BAILEY on 06/29/24 Normal [facility] Comprehensive metabolic 2000 panelOrdered By: Pamela Barreto on 06-27-2024 Albumin [Mass/Vol] 4.3 g/dL 3.9 - 4.9 g/dL [facility] ALP [Catalytic activity/Vol] 130 U/L High 34 - 123 U/L [facility] ALT [Catalytic activity/Vol] 11 U/L 7 - 38 U/L [facility] Anion gap [Moles/Vol] 9 mmol/L 8 - 15 mmol/L [facility] AST [Catalytic activity/Vol] 24 U/L 13 - 35 U/L [facility] Bilirubin [Mass/Vol] 0.4 mg/dL 0.2 - 1 .3 mg/dL [facility] Calcium [Mass/Vol] 10.3 mg/dL High 8.5 - 10. 2 mg/dL [facility] Chloride [Moles/Vol] 102 mmol/L 98 - 10 7 mmol/L [facility] CO2 [Moles/Vol] 28 mmol/L 22 - 30 mmol/L [facility] Creatinine [Mass/Vol] 0.96 mg/dL 0.58 - 0.96 mg/dL [facility] GFR/1.73 sq M.predicted among non-blacks MDRD (S/P/Bld) [Vol rate/Area] 61 mL/min/{1.73_m2} - [facility] Comment on above: Estimated Glomerular Filtration Rate (eGFR) is calculated using the 2020 CKD-EPI creatinine equation. This equation utilizes serum creatinine, sex, and age as parameters. The creatinine assay has traceable calibration to isotope dilution-mass spectrometry. Refer to KDIGO guidelines for clinical interpretation. In patients with unstable renal function, e.g. those with acute kidney injury, the eGFR may not accurately reflect actual GFR. Glucose [Mass/Vol] 97 mg/dL 74 - 99 mg/dL [facility] Comment on above: The [place] Diab[employer] Association (ADA) provides guidance for cutoff values for fasting glucose and random glucose. The ADA defines fasting as no caloric intake for at least 8 hours. Fasting plasma glucose results between 100 to 125 mg/dL indicate increased risk for diabetes (prediabetes). Fasting plasma glucose results greater than or equal to 126 mg/dL meet the criteria for diagnosis of diabetes. In the absence of unequivocal hyperglycemia, results should be confirmed by repeat testing. In a patient with classic symptoms of hyperglycemia or hyperglycemic crisis, random plasma glucose results greater than or equal to 200 mg/dL meet the criteria for diagnosis of diabetes. Reference: Standards of Medical Care in Diabetes 2016, [place] [employer]. Diabetes Care. 2016.39(Suppl 1). Interpretation and review of laboratory results Abnormal [facility] Potassium [Moles/Vol] 3.9 mmol/L 3.7 - 5.1 mmol/L [facility] Protein [Mass/Vol] 6.7 g/dL 6.3 - 8.0 g/dL [facility] Sodium [Moles/Vol] 139 mmol/L 136 - 144 mmol/L [facility] Urea nitrogen [Mass/Vol] 19 mg/dL 7 - 21 mg/dL [facility] Comprehensive metabolic 2000 panelon 06-27-2024 Albumin [Mass/Vol] 4.3 g/dL Normal 3.9-4.9 [facility] Comment on above: Order Comment: Speci men Type: BLOOD SPECIMENOrdering Facility: [facility] Address: [address] [place] [address] Performed By: #### 2 4323-8 ####[facility] MILLTOWNCLIA [id number] [place] [address] [place] ALP [Catalytic activity/Vol] 130 U/L High 34-123 [facility] Comment on above: Order Comment: Speci men Type: BLOOD SPECIMENOrdering Facility: [facility] Address: [address] [place] [address] Performed By: #### 2 4323-8 ####[facility] ERWNCLIA [id number] [place] [address] [place] ALT [Catalytic activity/Vol] 11 U/L Normal 7-38 [facility] Comment on above: Order Comment: Speci men Type: BLOOD SPECIMENOrdering Facility: [facility] Address: [address] [place] [address] Performed By: #### 2 4323-8 ####[facility] [id number] [place] [address] [place] Anion gap [Moles/Vol] 9 mmol/L Normal 8-15 [facility] Comment on above: Order Comment: Speci men Type: BLOOD SPECIMENOrdering Facility: [facility] Address: [address] [place] [address] Performed By: #### 2 4323-8 ####[facility] ERWNCLIA [id number] [place] [address] [place] AST [Catalytic activity/Vol] 24 U/L Normal 13-35 [facility] Comment on above: Order Comment: Speci men Type: BLOOD SPECIMENOrdering Facility: [facility] Address: [address] [place] [address] Performed By: #### 2 4323-8 ####[facility] [id number] [place] [address] [place] Bilirubin [Mass/Vol] 0.4 mg/dL Normal 0.2-1.3 [facility] Comment on above: Order Comment: Speci men Type: BLOOD SPECIMENOrdering Facility: [facility] Address: [address] [place] [address] Performed By: #### 2 4323-8 ####[facility] [id number] [place] [address] [place] Calcium [Mass/Vol] 10.3 mg/dL High 8.5-10.2 [facility] Comment on above: Order Comment: Speci men Type: BLOOD SPECIMENOrdering Facility: [facility] Address: [address] [place] [address] Performed By: #### 2 4323-8 ####[facility]ITALJODYA [id number] [place] [address] [place] Chloride [Moles/Vol] 102 mmol/L Normal 98-107 [facility] Comment on above: Order Comment: Speci men Type: BLOOD SPECIMENOrdering Facility: [facility] Address: [address] [place] [address] Performed By: #### 2 4323-8 ####[facility] [id number] [place] [address] [place] CO2 [Moles/Vol] 28 mmol/L Normal 22-30 [facility] Comment on above: Order Comment: Speci men Type: BLOOD SPECIMENOrdering Facility: [facility] Address: [address] [place] [address] Performed By: #### 2 4323-8 ####[facility] [id number] [place] [address] [place] Creatinine [Mass/Vol] 0.96 mg/dL Normal 0.58-0.96 [facility] Comment on above: Order Comment: Speci pamella Type: BLOOD SPECIMENOrdering Facility: [facility] Address: [address] [place] [address] Performed By: #### 2 4323-8 ####[facility] [id number] [place] [address] [place] Creatinine and Glomerular filtration rate.predicted panel (S/P/Bld) 61 mL/min/1.73m??? Normal >=60 [facility] Comment on above: Order Comment: Rahel can Type: BLOOD SPECIMENOrdering Facility: [facility] Address: [address] [place] [address] Result Comment: Soo mated Glomerular Filtration Rate (eGFR) is calculated using the 2020 CKD-EPI creatinine equation. This equation utilizes serum creatinine, sex, and age as parameters. The creatinine assay has traceable calibration to isotope dilution-mass spectrometry. Refer to KDIGO guidelines for clinical interpretation. In patients with unstable renal function, e.g. those with acute kidney injury, the eGFR may not accurately reflect actual GFR. Performed By: #### 2 4323-8 ####[facility] [id number] [place] [address] [place] Glucose [Mass/Vol] 97 mg/dL Normal 74-99 [facility] Comment on above: Order Comment: Rahel can Type: BLOOD SPECIMENOrdering Facility: [facility] Address: [address] [place] [address] Result Comment: The [place] Diabetes Association (ADA) provides guidance for cutoff values for fasting glucose and random glucose. The ADA defines fasting as no caloric intake for at least 8 hours. Fasting plasma glucose results between 100 to 125 mg/dL indicate increased risk for diabetes (prediabetes). Fasting plasma glucose results greater than or equal to 126 mg/dL meet the criteria for diagnosis of diabetes. In the absence of unequivocal hyperglycemia, results should be confirmed by repeat testing. In a patient with classic symptoms of hyperglycemia or hyperglycemic crisis, random plasma glucose results greater than or equal to 200 mg/dL meet the criteria for diagnosis of diabetes. Reference: Standards of Medical Care in Diabetes 2016, [place] [employer]. Diabetes Care. 2016.39(Suppl 1). Performed By: #### 2 4323-8 ####[facility] MILLWUTLIA [id number] [place] [address] [place] Potassium [Moles/Vol] 3.9 mmol/L Normal 3.7-5.1 [facility] Comment on above: Order Comment: Speci men Type: BLOOD SPECIMENOrdering Facility: [facility] Address: [address] [place] [address] Performed By: #### 2 4323-8 ####[facility] [id number] [place] [address] [place] Protein [Mass/Vol] 6.7 g/dL Normal 6.3-8.0 [facility] Comment on above: Order Comment: Krisi pamella Type: BLOOD SPECIMENOrdering Facility: [facility] Address: [address] [place] [address] Performed By: #### 2 4323-8 ####[facility] [id number] [place] [address] [place] Sodium [Moles/Vol] 139 mmol/L Normal 136-144 [facility] Comment on above: Order Comment: Speci men Type: BLOOD SPECIMENOrdering Facility: [facility] Address: [address] [place] [address] Performed By: #### 2 4323-8 ####[facility] [id number] [place] [address] [place] Urea nitrogen [Mass/Vol] 19 mg/dL Normal 7-21 [facility] Comment on above: Order Comment: Rahel can Type: BLOOD SPECIMENOrdering Facility: [facility] Address: [address] [place] [address] Performed By: #### 2 4323-8 ####[facility] [id number] [place] [address] [place] THYROGLOBULIN ANTIBODYon Thyroglobulin Ab Qn 10.9 [IU]/mL High <4.0 [facility] Comment on above: Order Comment: Rahel can Type: BLOOD SPECIMEN Ordering [facility]: [facility] Address: [address] [place] [address] Result Comment: The Thyroglobulin Antibody test was performed using the [employer] DXI paramagnetic particle chemiluminescent immunoassay method. Results obtained with different assay methods or kits cannot be used interchangeably. Performed By: #### T ELROY #### [facility] CLIA [id number] [address] [place] [address] OF FERN THYROID PEROXIDASE ANTIBODYo n 06-27-2024 TPO Ab Qn 7.0 [IU]/mL High <5.6 [facility] Comment on above: Order Comment: Rahel can Type: BLOOD SPECIMENOrdering Facility: [facility] Address: [address] [place] [address] Result Comment: Thyr oid Peroxidase Antibody test is used as an aid in diagnosis of autoimmune thyroid disease. Clinical correlation is required. Performed By: #### M ICRO ####[facility] [id number] [place] [address] [place] Low Dose CT Lung Screeningon 06-22-[address] Lung Screening [facility] Imaging Services [address] [place] [id number] Lung Screening MR#: [id number] Acct: [id number] Name: CHERIE JIMENEZ Rep #: [id number] : 1945 F 78 From: Son Sauer MD PCP: Dr. Alyce Cantrell MD Status: [facility] CL Study: Low Dose CT Lung Screening Date of Exam: 06/22 Exam# [id number] Ordering Dr: Hossein Espino DO EXAM: CT Chest, Lung Cancer Screening Without Intravenous Contrast CLINICAL INDICATION: TECHNIQUE: Axial computed tomography images of the chest without intravenous contrast using low dose (LDCT) lung cancer screening protocol. This CT exam was performed using one or more of the following dose reduction techniques: automated exposure control, adjustment of the mA and/or kV according to patient size, and/or use of iterative reconstruction technique. COMPARISON: CT Lung Cancer Screening dated 06/22/2023 FINDINGS: LUNGS AND PLEURAL SPACES: Lung emphysema/COPD. Cm nodule of the right upper lobe on axial image 43. 4 mm nodule of the right upper lobe on axial image 51. 2 mm nodule of the right upper lobe on axial image 87. This is new since the prior exam. 3 mm nodule of the right upper lobe on axial image 49. This is new since the prior exam. Bilateral apical scarring. Middle lobe atelectasis or scarring. No pneumothorax. No significant effusion. HEART: Unremarkable. No cardiomegaly. No significant pericardial effusion. No significant coronary artery calcifications. BONES/JOINTS: Unremarkable. No acute fracture. No dislocation. SOFT TISSUES: Unremarkable. VASCULATURE: Unremarkable. No thoracic aortic aneurysm. LYMPH NODES: Unremarkable. No enlarged lymph nodes. CT/Low Dose CT Lung Screening IMPRESSION: 1. New pulmonary nodules of the right upper lobe measuring up to 3 mm as above. The other pulmonary nodules are stable. 2. LUNG-RADS 3: Probably benign. Continue low-dose CT screening of the chest in 6 months is recommended. Reading Location: [facility] CC: Dr. Hossein Espino DO; Dr. Alyce Cantrell MD [employer] Cart Repairer: Signed Normal [facility] Stress Reporton 06-05-2024 Stress Report [facility] Cardiovascular Services [address] [place] [address] MR#: [id number] Acct: [id number] Name: CHERIE JIMENEZ Rep #: [id number] : 1945 78 From: Neftali Hodges MD Primary Care: Dr. Alyce Cantrell MD Status: R EG CLI Referring Dr: Neftali Hodges MD Sex: F C Stress Test Report Exercise myocardial perfusion stress test. 78-year-old lady with a history of premature ventricular complexes Stress protocol: Resting EKG demonstrates normal sinus rhythm with a rate of 63 bpm resting blood pressure is 122/70 mmHg. The patient exercised according to the regular Sushil protocol for a total duration of 7 minutes attaining a maximum heart rate of 120 bpm which was 84% of maximum predicted heart rate; the maximum workload was 10.1 metabolic equivalents. At rest there were no ST or T wave changes noted to suggest ischemia and at peak exercise upsloping ST changes only were noted which did not meet the criteria for ischemia. No clinical angina was noted the test was terminated due to the target heart rate being achieved/fatigue. The peak blood pressure was 154/68 mmHg. Rate-pressure product was 16,900. Myocardial perfusion protocol. 13 mCi of technetium 99m sestamibi was injected at rest. The patient exercised according to regular Sushil protocol for total duration of 7 minutes and at peak exercise 44 mCi of technetium 99m sestamibi was injected stress images were obtained stress and rest images were reconstructed in comparing the short axis vertical long and horizontal long axis. Gated images were also obtained. Perfusion SPECT analysis: Review of the stress images demonstrate normal uptake of tracer noted in all areas of the myocardium. The resting images similarly demonstrate normal uptake of tracer noted in all areas of the myocardium. No areas of reversibility are noted to suggest ischemia no previous infarct was noted. Gated SPECT analysis: The gated ejection fraction is over 80%. Conclusion: Normal exercise myocardial perfusion stress test at a high workload Preserved ejection fraction. 06/05/241207 Date Neftali Hodges MD CC: Dr. Neftali Hodges MD; Dr. Alyce Cantrell MD Date Dictated: 06/05/241206 Date Transcribed: 06/05/241206 [employer] Cart Repairer: [place] Signed Normal [facility] 12 Lead EKG performed by [facility] on 05-30-2024 12 Lead EKG performed by [place] [id number] [place] [address] 12 Lead EKG performed by [facility] 05/30/24841 MR#: [id number] Acct: [id number] Name: CHERIE JIMENEZ Rep #: [id number] : 1945 78 From: Neftali Hodges MD Attending Dr: Dr. Neftali Hodges MD Status: DEP A MB Ordering Dr: Neftali Hodges MD Date: 05/30/24 Location: [facility] Sex: F C Admitted: BMS/12 Lead EKG performed by [facility] ECG Report Interpretation -Sinus Rhythm - frequent ectopic ventricular beat s # VECs = 5-RSR(V1) -nondiagnostic. -Left atrial enlargement. BORDERLINEElectronically signed on 06/04/2024 at 08:26 by Neftali Hodges [employer] Version 8610 06/04/24827 Date Neftali Hodges MD CC: Dr. Alyce Cantrell MD Date Dictated: 05/30/24841 Date Transcribed: 05/30/24841 Gas Golf Cart Repairer: [place] Signed Normal [facility] Cardiology Visit Reporton Cardiology Visit Report [facility] [address] [place] [address] OFFICE VISIT Date of Service: 05/30/24 MR#: [id number] Acct: [id number] Name: CHERIE JIMENEZ Rep #: [id number] : 1945 Provider: Dr. Neftali Hodges MD Age/Sex: 78/F Location: [facility] Status: Signed HPI HPI History of Present Illness Details: Pleasant 78-year-old lady who presented to the emergency room initially in May 2019 for with an exacerbation of COPD and at that time had some atypical chest pain. D-dimer and proBNP were noted to be normal. She was subsequently discharged and then in April of this year she said that she felt a little dyspneic and called the pulmonary office and was asked to go to the emergency room. In the emergency room an EKG was done which demonstrated frequent premature ventricular complexes remember she had had a previous echocardiogram performed in May 2023 demonstrating preserved ejection fraction, stage I diastolic dysfunction and focal aortic valve calcification. Electrolytes during this visit were noted to be normal and she was put on Toprol long-acting. Troponins were noted to be normal. She has since then been doing well but was asked to follow-up with cardiology. Her EKG in April demonstrated sinus rhythm with frequent premature ventricular complexes a rate of 95 bpm. Her physical exam today is unremarkable her electrocardiogram demonstrates sinus rhythm with premature ventricular complexes and a rate of 74 bpm. Intake Vital Signs 04/23/24 08:41 05/30/24 08:31 Height 5 ft 4 in 5 ft 4 in Weight: 132 lb BMI 22.6 BP 122/67 H Blood Pressure Location Lt brachial Position Sitting Respiration 18 Pulse 72 Pulse Source NIBP Intake Visit Reasons: S/P [facility] 04/23 Warp Dyeing Vat Tender Required: No Accompanied by: Self Is patient in pain?: Yes (chronic muscle/ joint pains) Allergies codeine Allergy (Severe, Verified 05/30/24 08:52) Nausea metaxalone (From Skelaxin) Allergy (Severe, Verified 05/30/24 08:52) palpitations, tachycardia and itching amoxicillin trihydrate (From Augmentin) Allergy (Intermediate, Verified 05/30/24 08:52) Diarrhea cyclobenzaprine (From Flexeril) Allergy (Intermediate, Verified 05/30/24 08:52) PT UNSURE OF REACTION doxycycline Allergy (Intermediate, Verified 05/30/24 08:52) Abd cramps/diarrhea nitrofurantoin (From Macrodantin) Allergy (Intermediate, Verified 05/30/24 08:52) Rash paroxetine (From Paxil) Allergy (Intermediate, Verified 05/30/24 08:52) PT UNSURE OF REACTION varenicline (From Chantix) Allergy (Intermediate, Verified 05/30/24 08:52) Nausea acetaminophen (From Vicodin) Allergy (Verified 05/30/24 08:52) Abd cramps/diarrhea adhesive Allergy (Verified 05/30/24 08:52) NEEDS FOLLOW-UP bacitracin (From Polysporin) Allergy (Verified 05/30/24 08:52) Unknown hydrocodone (From Vicodin) Allergy (Verified 05/30/24 08:52) Abd cramps/diarrhea polymyxin B sulfate (From Polysporin) Allergy (Verified 05/30/24 08:52) Unknown potassium clavulanate (From Augmentin) Allergy (Verified 05/30/24 08:52) Unknown sertraline (From Zoloft) Allergy (Verified 05/30/24 08:52) Abd cramps/diarrhea tramadol (From Ultram) Allergy (Verified 05/30/24 08:52) Abd cramps/diarrhea sulfamethoxazole (From Janra) Adverse Reaction (Intermediate, Verified 05/30/24 08:52) Abd cramps/diarrhea trimethoprim (From Janra) Adverse Reaction (Intermediate, Verified 05/30/24 08:52) Abd cramps/diarrhea propoxyphene napsylate (From Darvocet-N 100) Adverse Reaction (Verified 05/30/24 08:52) Nausea/Vom/Diarrhea Medications ???Medication ???Instructions ???Recorded ???Confirmed ???Type atorvastatin 10 mg tablet 10 mg PO DAILY 08/08/14 05/30/24 History biotin 10,000 mcg capsule 5,000 mcg PO DAILY 08/08/14 05/30/24 History folic acid 1 mg tablet 1 mg PO QODAY 08/08/14 05/30/24 History polyethylene glycol 3350 17 17 g PO DAILY PRN constipation 08/08/14 05/30/24 History gram/dose oral powder aspirin 81 mg tablet,delayed 81 mg PO DAILY 04/14/23 05/30/24 History release cyanocobalamin (vitamin B-12) 1,000 mcg IM QMONTH 06/13/23 05/30/24 History 1,000 mcg/mL injection solution (Dodex) glycerin-mineral oil-polycarbophil 1 ea vaginal .COMPLEX 06/13/23 05/30/24 History vaginal gel (Feminine Moisturizer and Lubricating(glyc-mnOil) vaginal gel) minoxidil 5 % topical foam 1 ea topical DAILY 06/13/23 05/30/24 History (Daylogic Minoxidil) calcium 500 mg (as 1 tab PO DAILY 07/20/23 05/30/24 History carbonate)-vitamin D3 3.125 mcg (125 unit) tablet cholecalciferol (vitamin D3) 25 25 mcg PO DAILY 07/20/23 05/30/24 History mcg (1,000 unit) capsule (Vitamin D3) dicyclomine 10 mg capsule 10 mg PO BID PRN abdominal pain 07/20/23 05/30/24 History vitamins A,C,L-crhs-jpsgla 4,296 1 cap (more content not included)... Normal [facility] Chest PA and Lateralon 05-03 Chest PA and Lateral [facility] Imaging Services [address] [place] [address] Chest PA and Lateral MR#: [id number] Acct: [id number] Name: CHERIE JIMENEZ Rep #: [id number] : 1945 F 78 From: Angela Castillo MD PCP: Dr. Alyce Cantrell MD Status: [facility] CLI Study: Chest PA and Lateral Date of Exam: 05/03/24 Exam# [id number] Ordering Dr: Alyce Cantrell MD [id number] EXAM: XR CHEST, 2 VIEWS CLINICAL INDICATION: UPPER RESPIRATORY INFECTION TECHNIQUE: Frontal and lateral views of the chest. COMPARISON: April 23, 2024. June 13, 2023 showing advanced emphysematous change. There was low dose CT screening exam June 22, 2023. FINDINGS: LUNGS AND PLEURAL SPACES: The lungs are hyperinflated with some increased lucency throughout most of the right upper lung field, similar to prior exam, presumed advanced COPD. No confluent infiltrate or effusion. No pneumothorax. HEART: Unremarkable. Cardiac silhouette not enlarged. MEDIASTINUM: Central airways and mediastinal contour are unremarkable. BONES/JOINTS: Unremarkable. No acute fracture. SOFT TISSUES: Unremarkable. VASCULATURE: Mild peripheral calcification of the aortic arch is again noted. RAD/Chest PA and Lateral IMPRESSION: 1. Advanced COPD. 2. Emphysema is an independent risk factor for lung neoplasm. Recommendation: yearly low dose CT lung screening. 3. Prior low dose CT screening is provided from June 22, 2023. The next recommended screening is due in June 2024. Thank you. Electronically Signed: Angela Castillo MD at 2:02 EST Reading Location ID and State: [facility] / OR Tel , Service support , CC: Dr. Alyce Cantrell MD [employer] Cart Repairer: Signed Normal [facility] 12 Lead EKGon 04-23-2024 12 Lead EKG [facility] Cardiovascular Services [address] [place] [address] 12 Lead EKG 04/23/24 0854 MR#: [id number] Acct: [id number] Name: CHERIE JIMENEZ Rep #: [id number] : 1945 78 From: Neftali Hodges MD Attending Dr: Status: DEP ER Ordering Dr: Pollo De La Torre MD Date: 04/23/24 Location: ED Sex: F C Admitted: Test Reason : Blood Pressure : */* mmHG Vent. Rate : 95 BPM Atrial Rate : 95 BPM P-R Int : 130 ms QRS Dur : 74 ms QT Int : 366 ms P-R-T Axes : 85 73 76 degrees QTcB Int : 459 ms Sinus rhythm with frequent Premature ventricular complexes Nonspecific ST abnormality Abnormal ECG Confirmed by NEFTALI HODGES MD ([id number]), photo editor EVANGELINA HUERTA ([id number]) on 04/24/2024 8:08:11 AM Referred By: Confirmed By: NEFTALI HODGES MD 04/24/24 0808 Date Neftali Hodges MD CC: Dr. Pollo De La Torre MD; Dr. Alyce Cantrell MD Signed [facility] Absolute neutrophil countOrd ered By: Pollo De La Torre on 04-23-2024 Neutrophils (Bld) [#/Vol] 4.9 10*3/uL 2.0-7.7 [facility] Basic Metabolic Profile (BMP )on 04-23-2024 BUN/CRE 13.7 RATIO Normal 10-20 [facility] Comment on above: Order Comment: 'TROP ' Serial specimen #1, #2 or #3: 1 Performed By: #### L 501.4020, L100.0100, L500.2500 ####[facility] [address] [place], [address] CA,Total 10.2 mg/dL High 8.5-10.1 [facility] Comment on above: Order Comment: 'TROP ' Serial specimen #1, #2 or #3: 1 Performed By: #### L 501.4020, L100.0100, L500.2500 ####[facility] [address] [place], [address] Chloride [Moles/Vol] 109 mmol/L High 98-107 [facility] Comment on above: Order Comment: 'TROP ' Serial specimen #1, #2 or #3: 1 Performed By: #### L 501.4020, L100.0100, L500.2500 ####[facility] [address] [place], [address] CO2 [Moles/Vol] 27.0 mmol/L Normal 21.0-32.0 [facility] Comment on above: Order Comment: 'TROP ' Serial specimen #1, #2 or #3: 1 Performed By: #### L 501.4020, L100.0100, L500.2500 ####[facility] [address] [place], [address] Creatinine [Mass/Vol] 1.02 mg/dL Normal 0.55-1.02 [facility] Comment on above: Order Comment: 'TROP ' Serial specimen #1, #2 or #3: 1 Result Comment: The validity of the calculated GFR GFRAA in patients over 70 years has not been determined. Clinical correlation is essential. Performed By: #### L 501.4020, L100.0100, L500.2500 ####[facility] [address] [place], [address] ECRCL 39.25 ml/min Normal [facility] Comment on above: Order Comment: 'TROP ' Serial specimen #1, #2 or #3: 1 Performed By: #### L 501.4020, L100.0100, L500.2500 ####[facility] [address] [place], [address] EST GFR - AA 67 mL/min Normal >60 [facility] Comment on above: Order Comment: 'TROP ' Serial specimen #1, #2 or #3: 1 Result Comment: Afri can Colombian GFR Calc Performed By: #### L 501.4020, L100.0100, L500.2500 ####[facility] [address] [place], [address] GAP 6 Normal 5-15 [facility] Comment on above: Order Comment: 'TROP ' Serial specimen #1, #2 or #3: 1 Performed By: #### L 501.4020, L100.0100, L500.2500 ####[facility] [address] [place], [address] GFR/1.73 sq M.predicted among non-blacks MDRD (S/P/Bld) [Vol rate/Area] 56 mL/min/{1.73_m2} Low >60 [facility] Comment on above: Order Comment: 'TROP ' Serial specimen #1, #2 or #3: 1 Result Comment: Non- GFR Calc Performed By: #### L 501.4020, L100.0100, L500.2500 ####[facility] [address] [place], [address] Glucose [Mass/Vol] 119 mg/dL High 74-106 [facility] Comment on above: Order Comment: 'TROP ' Serial specimen #1, #2 or #3: 1 Result Comment: Fast ing Glucose result from 100 to 125 mg/dL suggests IMPAIRED HOMEOSTASIS per A.D.A. criteria. Performed By: #### L 501.4020, L100.0100, L500.2500 ####[facility] [address] [place], [address] Potassium [Moles/Vol] 4.1 mmol/L Normal 3.5-5.1 [facility] Comment on above: Order Comment: 'TROP ' Serial specimen #1, #2 or #3: 1 Performed By: #### L 501.4020, L100.0100, L500.2500 ####[facility] [address] [place], [address] Sodium [Moles/Vol] 142 mmol/L Normal 136-145 [facility] Comment on above: Order Comment: 'TROP ' Serial specimen #1, #2 or #3: 1 Performed By: #### L 501.4020, L100.0100, L500.2500 ####[facility] [address] [place], [address] Urea nitrogen [Mass/Vol] 14 mg/dL Normal 7-18 [facility] Comment on above: Order Comment: 'TROP ' Serial specimen #1, #2 or #3: 1 Performed By: #### L 501.4020, L100.0100, L500.2500 ####[facility] [address] [place], [address] Basophil percentageOrdered B y: Pollo De La Torre on 04-23-2024 Basophils/100 WBC (Bld) 0.5 % 0-1 [facility] Blood urea nitrogen (BUN)/cr eatinine ratioOrdered By: Pollo De La Torre on 04-23-2024 Urea nitrogen/Creatinine [Mass ratio] 13.7 mg/mg 10-20 [facility] CBC W/Diff, Automatedon 12-0 Absolute Lymph 0.92 X10 3/uL Normal 0.83-4.51 [facility] Comment on above: Performed By: #### L 501.4020, L100.0100, L500.2500 ####[facility] [address] [place], [address] Absolute Neut 4.9 X10 3/uL Normal 2.0-7.7 [facility] Comment on above: Performed By: #### L 501.4020, L100.0100, L500.2500 ####[facility] [address] [place], [address] Basophils/100 WBC (Bld) 0.5 % Normal 0-1 [facility] Comment on above: Performed By: #### L 501.4020, L100.0100, L500.2500 ####[facility] [address] [place], [address] Eosinophils/100 WBC (Bld) 1.3 % Normal 0-5 [facility] Comment on above: Performed By: #### L 501.4020, L100.0100, L500.2500 ####[facility] [address] [place], [address] Erythrocyte distribution width (RBC) [Ratio] 13.5 % Normal 11.6-14.6 [facility] Comment on above: Performed By: #### L 501.4020, L100.0100, L500.2500 ####[facility] [address] [place], [address] Hematocrit (Bld) [Volume fraction] 44.4 % Normal 37-47 [facility] Comment on above: Performed By: #### L 501.4020, L100.0100, L500.2500 ####[facility] [address] [place], [address] Hemoglobin (Bld) [Mass/Vol] 14.4 g/dL Normal 12.0-15.0 [facility] Comment on above: Performed By: #### L 501.4020, L100.0100, L500.2500 ####[facility] [address] [place], [address] IG% 0.300 Normal 0.0-0.9 [facility] Comment on above: Result Comment: IG% - Immature Granulocytes (promyelocytes, myelocytes and metamyelocytes) > 1% indicates that a LEFT SHIFT is Present. Performed By: #### L 501.4020, L100.0100, L500.2500 ####[facility] [address] [place], [address] Lymphocytes/100 WBC (Bld) 14.5 % Low 19-41 [facility] Comment on above: Performed By: #### L 501.4020, L100.0100, L500.2500 ####[facility] [address] [place], [address] MCH (RBC) [Entitic mass] 28.7 pg Normal 27.0-32.0 [facility] Comment on above: Performed By: #### L 501.4020, L100.0100, L500.2500 ####[facility] [address] [place], [address] MCHC (RBC) [Mass/Vol] 32.4 g/dL Normal 32-36 [facility] Comment on above: Performed By: #### L 501.4020, L100.0100, L500.2500 ####[facility] [address] [place], [address] MCV (RBC) [Entitic vol] 88.6 fL Normal 81-99 [facility] Comment on above: Performed By: #### L 501.4020, L100.0100, L500.2500 ####[facility] [address] [place], [address] Monocytes/100 WBC (Bld) 6.9 % Normal 0-10 [facility] Comment on above: Performed By: #### L 501.4020, L100.0100, L500.2500 ####[facility] [address] [place], [address] Neutrophils/100 WBC (Bld) 76.5 % High 47-70 [facility] Comment on above: Performed By: #### L 501.4020, L100.0100, L500.2500 ####[facility] [address] [place], [address] Nucleated RBC (Bld) [#/Vol] 0 10*3/uL Normal 0-5 [facility] Comment on above: Performed By: #### L 501.4020, L100.0100, L500.2500 ####[facility] [address] [place], [address] Platelet mean volume (Bld) [Entitic vol] 10.9 fL Normal 6.2-12.0 [facility] Comment on above: Performed By: #### L 501.4020, L100.0100, L500.2500 ####[facility] [address] [place], [address] Platelets (Bld) [#/Vol] 239 10*3/uL Normal 150-450 [facility] Comment on above: Performed By: #### L 501.4020, L100.0100, L500.2500 ####[facility] [address] [place], [address] RBC (Bld) [#/Vol] 5.01 10*6/uL Normal 4.2-5.4 [facility] Comment on above: Performed By: #### L 501.4020, L100.0100, L500.2500 ####[facility] [address] [place], [address] RDW SD 43.7 fl Normal 35.1-43.9 [facility] Comment on above: Performed By: #### L 501.4020, L100.0100, L500.2500 ####[facility] [address] [place], [address] WBC (Bld) [#/Vol] 6.4 10*3/uL Normal 4.4-11.0 [facility] Comment on above: Performed By: #### L 501.4020, L100.0100, L500.2500 ####[facility] [address] [place], [address] Carbon dioxide measurementOr dered By: Pollo De La Torre on 04-23-2024 CO2 [Moles/Vol] 27.0 mmol/L 21.0-32.0 [facility] Chest PA and Lateralon 04-23 Chest PA and Lateral [facility] Imaging Services [address] [place] [address] Chest PA and Lateral MR#: [id number] Acct: [id number] Name: CHERIE JIMENEZ Rep #: [id number] : 1945 F 78 From: Audie ziegler MD PCP: Dr. Alyce Cantrell MD Status: PRE ER Study: Chest PA and Lateral Date of Exam: 04/23/24 Exam# [id number] Ordering Dr: Pollo De La Torre MD [id number] STUDY: X-RAY CHEST REASON FOR EXAM: Female, 78 years old. Sob TECHNIQUE: PA and lateral views of the chest. COMPARISON: Comparison is made with prior study dated June 13, 2023. FINDINGS: EKG electrodes are seen. There is hyperinflation of the lungs consistent with chronic obstructive lung disease (COPD). Stable mild increased markings at the lung bases suggestive of scarring. There is no demonstrated pleural abnormality. Normal size heart. Normal mediastinum and suki. Normal visualized pulmonary arteries. There is atherosclerotic calcification of the aortic arch with tortuosity. There is demineralization of the osseous structures. Normal visualized ribs, clavicles, and shoulders. There is no demonstrated abnormality of the visualized soft tissue structures of the upper abdomen. RAD/Chest PA and Lateral IMPRESSION: Hyperinflation. Stable increased markings at the lung bases suggestive of scarring. Electronically Signed: Audie Ramires MD at 10:05 EST , CC: Dr. Pollo De La Torre MD; Dr. 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 Alyce Cantrell MD Status:REG ER Location: ED HPI History of Present Illness Chief Complaint: Shortness of Breath Informant: patient Narrative Narrative: 78-year-old female having episodes of dyspnea since yesterday evening, basically occurring with light exertion, which is abnormal for her. She does have a history of COPD. She has not been having a cough lately, she does not think she was wheezing when this occurred, and she denies having any chest discomfort or presyncope. Last night when it occurred it was her before bed, she laid down and had no issues and went to sleep. Whenever she got up in the middle of the night to get up or go to the bathroom, she was dyspneic. At 1 point she used her albuterol and felt like it helped. Within a minute or 2 of using it she felt nauseated/sick to her stomach, she did not vomit. 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 She denies having any cold symptoms lately, she had a runny nose and some congestion 2-3 weeks ago that went away and she has had no other symptoms since. She does not see cardiology for any problems. Her doctor follows her for a heart murmur. [facility] Medical History Wears glasses Wears hearing aid Cancer Post-menopausal History of steroid therapy Thyroid disease TIA (transient ischemic attack) History of IBS Former smoker Emphysema, unspecified Shortness of breath on exertion Tremor Neuropathy History of stress test History of echocardiogram History of irregular heartbeat rib removal mohs procedure Hearing loss Fatigue Hyperlipidemia Pernicious anemia Kidney stone Hypothyroidism IBS (irritable bowel syndrome) Migraines Fibromyalgia Bruises easily Squamous cell carcinoma Basal cell carcinoma (BCC) Hemangioma Lentigo Keratosis Other specified disorder of gallbladder Atypical chest pain Dyspnea on exertion GERD (gastroesophageal reflux disease) COPD (chronic obstructive pulmonary disease) Tobacco dependence in remission Pulmonary nodule PND (post-nasal drip) Acute bronchitis Hoarseness Acute pain of both ears Home Medications ???Medication ???Instructions ???Recorded ???Last Taken ???Type atorvastatin 10 mg tablet 10 mg PO DAILY 08/08/14 07/21/23 History biotin 10,000 mcg capsule 5,000 mcg PO DAILY 08/08/14 07/20/23 History folic acid 1 mg tablet 1 mg PO QODAY 08/08/14 07/20/23 History polyethylene glycol 3350 17 17 g PO DAILY PRN constipation 08/08/14 06/12/23 History gram/dose oral powder aspirin 81 mg tablet,delayed 81 mg PO DAILY 04/14/23 07/16/23 History release cyanocobalamin (vitamin B-12) 1,000 mcg IM QMONTH 06/13/23 07/16/23 History 1,000 mcg/mL injection solution (Dodex) glycerin-mineral oil-polycarbophil 1 ea vaginal .COMPLEX 06/13/23 06/12/23 History vaginal gel (Feminine Moisturizer and Lubricating(glyc-mnOil) vaginal gel) minoxidil 5 % topical foam 1 ea topical DAILY 06/13/23 06/12/23 History (Daylogic Minoxidil) calcium 500 mg (as 1 tab PO DAILY 07/20/23 07/20/23 History carbonate)-vitamin D3 3.125 mcg (125 unit) tablet cholecalciferol (vitamin D3) 25 25 mcg PO DAILY 07/20/23 07/20/23 History mcg (1,000 unit) capsule (Vitamin D3) dicyclomine 10 mg capsule 10 mg PO BID PRN abdominal pain 07/20/23 Unknown History vitamins A,C,T-keza-umltsr 4,296 1 cap PO BID 07/20/23 07/20/23 History mcg-226 mg-90 mg capsule (ICaps AREDS) fluoride (sodium) 1.1 % dental applic PO 07/27/23 Unknown History cream (SF 5000 Plus) umeclidinium 62.5 mcg/actuation 1 inh inhalation Q24H COPD J44.9 12/05/23 Unknown Rx blister powder for inhalation #30 ea (Incruse Ellipta) albuterol sulfate 90 mcg/actuation 2 puff inhalation Q6H PRN 02/24/24 Unknown Rx aerosol inhaler (Ventolin HFA) shortness of breath or wheezing #1 device amitriptyline 10 mg tablet 5 - 30 mg PO QHS 04/23/24 Unknown History levothyroxine 75 mcg tablet 75 mcg PO DAILY 04/23/24 Unknown History metoprolol succinate 25 mg 25 mg PO DAILY #30 tabs 04/23/24 Unknown Rx tablet,extended release 24 hr (Toprol XL) Allergy/AdvReac Type Severity Reaction Status Date / Time metaxalone (From Skelaxin) Allergy Severe palpitations, Verified 04/23/24 08:41 tachycardia and itching adhesive Allergy NEEDS Verified 04/23/24 08:41 FOLLOW-UP amoxicillin trihydrate (From Allergy Unknown Verified 04/23/24 08:41 Augmentin) bacitracin (From Polysporin) Allergy Unknown Verified 04/23/24 08:41 p (more content not included)... Normal [facility] Eosinophil percentageOrdered By: Pollo De La Torre on 04-23-2024 Eosinophils/100 WBC (Bld) 1.3 % 0-5 [facility] Erythrocyte distribution wid th ratioOrdered By: Pollo De La Torre on 04-23-2024 Erythrocyte distribution width (RBC) [Ratio] 13.5 % 11.6-14.6 [facility] Erythrocyte distribution wid th standard deviationOrdered By: Pollo De La Torre on 04-23-2024 Erythrocyte distribution width (RBC) [Entitic vol] 43.7 fL 35.1-43.9 [facility] Estimated glomerular filtrat ion rate (GFR) AmericanOrdered By: Pollo De La Torre on 04-23-2024 Estimated GFR (MDRD) Amer 67 mL/min >60 [facility] Comment on above: GFR Calc Estimation of creatinine yovani aranceOrdered By: Pollo De La Torre on 04-23-2024 Estimated Creatinine Clearance Calc 39.25 ml/min [facility] Glomerular filtration rate ( GFR) estimationOrdered By: Pollo De La Torre on 04-23-2024 Estimated GFR (MDRD) Non-Af Amer 56 mL/min Low >60 [facility] Comment on above: Non- GFR Calc Glucose measurementOrdered B y: Pollo De La Torre on 04-23-2024 Glucose [Mass/Vol] 119 mg/dL High 74-106 [facility] Comment on above: Fasting Glucose resu lt from 100 to 125 mg/dL suggests IMPAIRED HOMEOSTASIS per A.D.A. criteria. Hematocrit Auto (Bld) [Volum e fraction]Ordered By: Pollo De La Torre on 04-23-2024 Hematocrit (Bld) [Volume fraction] 44.4 % 37-47 [facility] Hemoglobin measurementOrdere d By: Pollo De La Torre on 04-23-2024 Hemoglobin (Bld) [Mass/Vol] 14.4 g/dL 12.0-15.0 [facility] Immature granulocytes/100 WB C Auto (Bld)Ordered By: Pollo De La Torre on 04-23-2024 Immature granulocytes/100 WBC (Bld) 0.300 % 0.0-0.9 [facility] Comment on above: IG% - Immature Granu locytes (promyelocytes, myelocytes and metamyelocytes) > 1% indicates that a LEFT SHIFT is Present. L501.4020on 04-23-2024 TROPONIN-I HS 12 pg/mL Normal 3.0-54.0 [facility] Comment on above: Order Comment: 'TROP ' Serial specimen #1, #2 or #3: 2 Result Comment: Anjel zuniga Note: New Test Units and Gender Specific Reference Ranges. For more information see Policy Stat Procedure [place] High Sensitivity Troponin (TNIH) and attachments. Performed By: #### L 501.4020 ####[facility] [address] [place], [place], [address] TROPONIN-I HS 11 pg/mL Normal 3.0-54.0 [facility] Comment on above: Order Comment: 'TROP ' Serial specimen #1, #2 or #3: 1 Result Comment: Anjel zuniga Note: New Test Units and Gender Specific Reference Ranges. For more information see Policy Stat Procedure [place] High Sensitivity Troponin (TNIH) and attachments. Performed By: #### L 501.4020, L100.0100, L500.2500 ####[facility] [address] [place], [place], [address] Lymphocytes Auto (Unsp spec) [#/Vol]Ordered By: Pollo De La Torre on 04-23-2024 Lymphocytes (Bld) [#/Vol] 0.92 10*3/uL 0.83-4.5 1 [facility] Lymphocytes/100 WBC Auto (Un sp spec)Ordered By: Pollo De La Torre on 04-23-2024 Lymphocytes/100 WBC (Bld) 14.5 % Low 19-41 [facility] MCV (mean corpuscular volume ) determinationOrdered By: Pollo De La Torre on 04-23-2024 MCV (RBC) [Entitic vol] 88.6 fL 81-99 [facility] Mean corpuscular hemoglobin (MCH) determinationOrdered By: Pollo De La Torre on 04-23-2024 MCH (RBC) [Entitic mass] 28.7 pg 27.0-32.0 [facility] Mean corpuscular hemoglobin concentration (MCHC) determinationOrdered By: Pollo De La Torre on 04-23-2024 MCHC (RBC) [Mass/Vol] 32.4 g/dL 32-36 [facility] Mean platelet volume determi nationOrdered By: Pollo De La Torre on 04-23-2024 Platelet mean volume (Bld) [Entitic vol] 10.9 fL 6.2-12.0 [facility] Monocyte percentageOrdered B y: Pollo De La Torre on 04-23-2024 Monocytes/100 WBC (Bld) 6.9 % 0-10 [facility] Neutrophil percentageOrdered By: Pollo De La Torre on 04-23-2024 Neutrophils/100 WBC (Bld) 76.5 % High 47-70 [facility] Nucleated red blood cell per centageOrdered By: Pollo De La Torre on 04-23-2024 Nucleated RBC/100 WBC (Bld) [Ratio] 0 % 0-5 [facility] Platelet countOrdered By: Mitch De La Torre on 04-23-2024 Platelets (Bld) [#/Vol] 239 10*3/uL 150-450 [facility] Potassium measurementOrdered By: Pollo De La Torre on 04-23-2024 Potassium [Moles/Vol] 4.1 mmol/L 3.5-5.1 [facility] RBC Auto (Bld) [#/Vol]Ordere d By: Pollo De La Torre on 04-23-2024 RBC (Bld) [#/Vol] 5.01 10*6/uL 4.2-5.4 [facility] Serum anion gap measurementO rdered By: Pollo De La Torre on 04-23-2024 Anion gap [Moles/Vol] 6 mmol/L 5-15 [facility] Serum or plasma calcium jared urement (mass/volume)Ordered By: Pollo De La Torre on 04-23-2024 Calcium [Mass/Vol] 10.2 mg/dL High 8.5-10.1 [facility] Serum or plasma creatinine m easurement (mass/volume)Ordered By: Pollo De La Torre on 04-23-2024 Creatinine [Mass/Vol] 1.02 mg/dL 0.55-1.02 [facility] Comment on above: The validity of the calculated GFR & GFRAA in patients over 70 years has not been determined. Clinical correlation is essential. Serum or plasma urea nitroge n measurement (mass/volume)Ordered By: Pollo De La Torre on 04-23-2024 Urea nitrogen [Mass/Vol] 14 mg/dL 7-18 [facility] Sodium levelOrdered By: Eren De La Torre on 04-23-2024 Sodium [Moles/Vol] 142 mmol/L 136-145 [facility] Troponin IOrdered By: Cheikh De La Torre on 04-23-2024 Troponin I High Sensitivity 12 pg/mL 3.0-54.0 [facility] Comment on above: Please Note: New Winsome t Units and Gender Specific Reference Ranges. For more information see Policy Stat Procedure [place] High Sensitivity Troponin (TNIH) and attachments. White blood cell (WBC) count Ordered By: Pollo De La Torre on 04-23-2024 WBC (Bld) [#/Vol] 6.4 10*3/uL 4.4-11.0 [facility] ANTINUCLEAR ANTIBODIES DIREC Ton 03-29-2024 RANDELL,DIRECT Negative Normal Negative [facility] Comment on above: Order Comment: Order Date: 03/27/24Order Info: 0-1 - RANDELL Performed By: #### L 501.9520, L500.4050, L501.6710, L3100.5475, L101.9900, L100.0100, L3100.3450 ####[facility] [address] [place], [place], [id number] Antinuclear Antibody, IFAon 03-29-2024 RANDELL, IFA Positive Abnormal . [facility] Comment on above: Order Comment: Order Date: 03/27/24Order Info: 269- - RANDELL Result Comment: Nega tive <1:80 Borderline 1:80 Positive >1:80 Performed By: #### L 3100.7950 ####[facility] [address] [place], [place], [id number] RANDELL-NOTE Comment Normal . [facility] Comment on above: Order Comment: Order Date: 03/27/24Order Info: 269- - RANDELL Result Comment: [place] jeffery Potential Disease Association Homogeneous Systemic Lupus Erythematosus, Drug Induced Systemic Lupus Erythematosus, Chronic Autoimmune hepatitis, Juvenile Idiopathic Arthritis Speckled Sjogren Syndrome, Systemic Lupus Erythematosus, Subacute Cutaneous Lupus, Lupus, Congenital Heart Block, Mixed Connective Tissue Disease, Scleroderma-diffuse, Scleroderma-Autoimmune Myositis Overlap Syndrome, Systemic Lupus Biohpvvjiwpcj-Hasvvdulxib-Smycflehoj Myositis Overlap Syndrome, Systemic Autoimmune Rheumatic Disease, Undifferentiated Connective Tissue Disease Nucleolar Systemic Sclerosis, Scleroderma-Autoimmune Myositis Overlap Syndrome, Sjogren Syndrome, Raynaud phenomenon, Pulmonary Arterial Hypertension, Systemic Autoimmune Rheumatic Disease, Cancer Centromere Scleroderma-CREST, Limited Cutaneous SSc, Raynaud's Phenomenon, Primary Biliary Cholangitis Nuclear Dot Primary Biliary Cholangitis Nuclear Primary Biliary Cholangitis, Autoimmune Membrane Hepatitis/Liver disease, Systemic Autoimmune Rheumatic Disease, Autoimmune Cytopenias, Linear Scleroderma, Antiphospholipid Syndrome Performed at: [facility] [id number] Air Drier Machine Operator: Rex Burrows PhD, Phone: [phone] Performed By: #### L 3100.7950 ####[facility] [address] [place], [address] CENTRIOLE TNP Normal . [facility] Comment on above: Order Comment: Order Date: 03/27/24Order Info: 269-05 - RANDELL Performed By: #### L 3100.7950 ####[facility] [address] [place], [address] CENTROMERE PAT. TNP Normal . [facility] Comment on above: Order Comment: Order Date: 03/27/24Order Info: 269-05 - RANDELL Performed By: #### L 3100.7950 ####[facility] [address] [place], [address] HOMOGENEOUS PAT TNP Normal . [facility] Comment on above: Order Comment: Order Date: 03/27/24Order Info: 269-05 - RANDELL Performed By: #### L 3100.7950 ####[facility] [address] [place], [address] MIDBODY TNP Normal . [facility] Comment on above: Order Comment: Order Date: 03/27/24Order Info: 269-05 - RANDELL Performed By: #### L 3100.7950 ####[facility] [address] [place], [address] NUCLEAR DOT TNP Normal . [facility] Comment on above: Order Comment: Order Date: 03/27/24Order Info: 269-05 - RANDELL Performed By: #### L 3100.7950 ####[facility] [address] [place], [address] NUCLEAR MEMBRAN TNP Normal . [facility] Comment on above: Order Comment: Order Date: 03/27/24Order Info: 269-05 - RANDELL Performed By: #### L 3100.7950 ####[facility] [address] [place], [address] NUCLEOLAR PAT. TNP Normal . [facility] Comment on above: Order Comment: Order Date: 03/27/24Order Info: 269-05 - RANDELL Performed By: #### L 3100.7950 ####[facility] [address] [place], [address] PNCA TNP Normal . [facility] Comment on above: Order Comment: Order Date: 03/27/24Order Info: 269-05 - RANDELL Performed By: #### L 3100.7950 ####[facility] [address] [place], [address] SPECKLED PAT. 1:640 Abnormal . [facility] Comment on above: Order Comment: Order Date: 03/27/24Order Info: 269-05 - RANDELL Result Comment: ICAP nomenclature: AC-2,4,5,29 Performed By: #### L 3100.7950 ####[facility] [address] [place], [address] SPINDLE APPARAT TNP Normal . [facility] Comment on above: Order Comment: Order Date: 03/27/24Order Info: 269-05 - RANDELL Performed By: #### L 3100.7950 ####[facility] [address] [place], [address] Protein Electroph, Son 03-29 Albumin [Mass/Vol] 3.7 g/dL Normal 2.9-4.4 [facility] Comment on above: Order Comment: Order Date: 03/27/24Order Info: 59-05 - PROEL Performed By: #### L 501.9520, L500.4050, L501.6710, L3100.5475, L101.9900, L100.0100, L3100.3450 ####[facility] [address] [place], [address] Albumin/Globulin [Mass ratio] 1.3 {ratio} Normal 0.7-1.7 [facility] Comment on above: Order Comment: Order Date: 03/27/24Order Info: 0060-1 - PROEL Performed By: #### L 501.9520, L500.4050, L501.6710, L3100.5475, L101.9900, L100.0100, L3100.3450 ####[facility] [address] [place], [address] ALPHA-1 GLOBUL 0.3 g/dL Normal 0.0-0.4 [facility] Comment on above: Order Comment: Order Date: 03/27/24Order Info: 0060-1 - PROEL Performed By: #### L 501.9520, L500.4050, L501.6710, L3100.5475, L101.9900, L100.0100, L3100.3450 ####[facility] [address] [place], [address] ALPHA-2 GLOBUL 0.9 g/dL Normal 0.4-1.0 [facility] Comment on above: Order Comment: Order Date: 03/27/24Order Info: 006- - PROEL Performed By: #### L 501.9520, L500.4050, L501.6710, L3100.5475, L101.9900, L100.0100, L3100.3450 ####[facility] [address] [place], [address] BETA GLOBULIN 0.9 g/dL Normal 0.7-1.3 [facility] Comment on above: Order Comment: Order Date: 03/27/24Order Info: 0060-1 - PROEL Performed By: #### L 501.9520, L500.4050, L501.6710, L3100.5475, L101.9900, L100.0100, L3100.3450 ####[facility] [address] [place], [address] GAMMA GLOBULIN 0.6 g/dL Normal 0.4-1.8 [facility] Comment on above: Order Comment: Order Date: 03/27/24Order Info: 0060-1 - PROEL Performed By: #### L 501.9520, L500.4050, L501.6710, L3100.5475, L101.9900, L100.0100, L3100.3450 ####[facility] [address] [place], [address] Globulin (S) [Mass/Vol] 2.8 g/dL Normal 2.2-3.9 [facility] Comment on above: Order Comment: Order Date: 03/27/24Order Info: 0060-1 - PROEL Performed By: #### L 501.9520, L500.4050, L501.6710, L3100.5475, L101.9900, L100.0100, L3100.3450 ####[facility] [address] [place], [place], [id number] INTERPRETATION Comment Normal . [facility] Comment on above: Order Comment: Order Date: 03/27/24Order Info: 0060-1 - PROEL Result Comment: Prot ein electrophoresis scan will follow via computer, mail, or reel system operator delivery. Performed By: #### L 501.9520, L500.4050, L501.6710, L3100.5475, L101.9900, L100.0100, L3100.3450 ####[facility] [address] [place], [place], [id number] M-SPIKE Not Observed Normal Not Observed [facility] Comment on above: Order Comment: Order Date: 03/27/24Order Info: 0060-1 - PROEL Performed By: #### L 501.9520, L500.4050, L501.6710, L3100.5475, L101.9900, L100.0100, L3100.3450 ####[facility] [address] [place], [address] NOTE: Comment Normal . [facility] Comment on above: Order Comment: Order Date: 03/27/24Order Info: 0060-1 - PROEL Result Comment: The SPE pattern appears unremarkable. Evidence of monoclonal protein is not apparent. Performed at: [address] [id number] Air D[employer] Machine Operator: Rex Burrows PhD, Phone: [phone] Performed By: #### L 501.9520, L500.4050, L501.6710, L3100.5475, L101.9900, L100.0100, L3100.3450 ####[facility] [address] [place], [address] Protein [Mass/Vol] 6.5 g/dL Normal 6.0-8.5 [facility] Comment on above: Order Comment: Order Date: 03/27/24Order Info: 0060- - PROEL Performed By: #### L 501.9520, L500.4050, L501.6710, L3100.5475, L101.9900, L100.0100, L3100.3450 ####[facility] [address] [place], [place], [address] CBC W/Diff, Automatedon 03-16 Absolute Lymph 1.43 X10 3/uL Normal 0.83-4.51 [facility] Comment on above: Order Comment: Order Date: 03/27/24Order Info: 0184-1 - CBCDOrder Info: 10581-0 - SED Performed By: #### L 501.9520, L500.4050, L501.6710, L3100.5475, L101.9900, L100.0100, L3100.3450 ####[facility] [address] [place], [address] Absolute Neut 5.2 X10 3/uL Normal 2.0-7.7 [facility] Comment on above: Order Comment: Order Date: 03/27/24Order Info: 0184-1 - CBCDOrder Info: 44419-6 - SED Performed By: #### L 501.9520, L500.4050, L501.6710, L3100.5475, L101.9900, L100.0100, L3100.3450 ####[facility] [address] [place], [address] Basophils/100 WBC (Bld) 0.5 % Normal 0-1 [facility] Comment on above: Order Comment: Order Date: 03/27/24Order Info: 0184-1 - CBCDOrder Info: 63523-8 - SED Performed By: #### L 501.9520, L500.4050, L501.6710, L3100.5475, L101.9900, L100.0100, L3100.3450 ####[facility] [address] [place], [address] Eosinophils/100 WBC (Bld) 2.5 % Normal 0-5 [facility] Comment on above: Order Comment: Order Date: 03/27/24Order Info: 0184- - CBCDOrder Info: [id number] - SED Performed By: #### L 501.9520, L500.4050, L501.6710, L3100.5475, L101.9900, L100.0100, L3100.3450 ####[facility] [address] [place], [address] Erythrocyte distribution width (RBC) [Ratio] 12.5 % Normal 11.6-14.6 [facility] Comment on above: Order Comment: Order Date: 03/27/24Order Info: 0184-1 - CBCDOrder Info: 93865-6 - SED Performed By: #### L 501.9520, L500.4050, L501.6710, L3100.5475, L101.9900, L100.0100, L3100.3450 ####[facility] [address] [place], [address] Hematocrit (Bld) [Volume fraction] 46.4 % Normal 37-47 [facility] Comment on above: Order Comment: Order Date: 03/27/24Order Info: 183-05 - CBCDOrder Info: 35824-7 - SED Performed By: #### L 501.9520, L500.4050, L501.6710, L3100.5475, L101.9900, L100.0100, L3100.3450 ####[facility] [address] [place], [address] Hemoglobin (Bld) [Mass/Vol] 14.9 g/dL Normal 12.0-15.0 [facility] Comment on above: Order Comment: Order Date: 03/27/24Order Info: 183-05 - CBCDOrder Info: [id number] - SED Performed By: #### L 501.9520, L500.4050, L501.6710, L3100.5475, L101.9900, L100.0100, L3100.3450 ####[facility] [address] [place], [address] IG% 0.300 Normal 0.0-0.9 [facility] Comment on above: Order Comment: Order Date: 03/27/24Order Info: 183-05 - CBCDOrder Info: 00126-3 - SED Result Comment: IG% - Immature Granulocytes (promyelocytes, myelocytes and metamyelocytes) > 1% indicates that a LEFT SHIFT is Present. Performed By: #### L 501.9520, L500.4050, L501.6710, L3100.5475, L101.9900, L100.0100, L3100.3450 ####[facility] [address] [place], [address] Lymphocytes/100 WBC (Bld) 18.9 % Low 19-41 [facility] Comment on above: Order Comment: Order Date: 03/27/24Order Info: 183-05 - CBCDOrder Info: [id number] - SED Performed By: #### L 501.9520, L500.4050, L501.6710, L3100.5475, L101.9900, L100.0100, L3100.3450 ####[facility] [address] [place], [address] MCH (RBC) [Entitic mass] 28.9 pg Normal 27.0-32.0 [facility] Comment on above: Order Comment: Order Date: 03/27/24Order Info: 183- - CBCDOrder Info: 84696-2 - SED Performed By: #### L 501.9520, L500.4050, L501.6710, L3100.5475, L101.9900, L100.0100, L3100.3450 ####[facility] [address] [place], [address] MCHC (RBC) [Mass/Vol] 32.1 g/dL Normal 32-36 [facility] Comment on above: Order Comment: Order Date: 03/27/24Order Info: 183-05 - CBCDOrder Info: 67429-1 - SED Performed By: #### L 501.9520, L500.4050, L501.6710, L3100.5475, L101.9900, L100.0100, L3100.3450 ####[facility] [address] [place], [address] MCV (RBC) [Entitic vol] 89.9 fL Normal 81-99 [facility] Comment on above: Order Comment: Order Date: 03/27/24Order Info: 183- - CBCDOrder Info: 62984-4 - SED Performed By: #### L 501.9520, L500.4050, L501.6710, L3100.5475, L101.9900, L100.0100, L3100.3450 ####[facility] [address] [place], [address] Monocytes/100 WBC (Bld) 8.6 % Normal 0-10 [facility] Comment on above: Order Comment: Order Date: 03/27/24Order Info: 183- - CBCDOrder Info: 98933-8 - SED Performed By: #### L 501.9520, L500.4050, L501.6710, L3100.5475, L101.9900, L100.0100, L3100.3450 ####[facility] [address] [place], [address] Neutrophils/100 WBC (Bld) 69.2 % Normal 47-70 [facility] Comment on above: Order Comment: Order Date: 03/27/24Order Info: 183-05 - CBCDOrder Info: 48558-7 - SED Performed By: #### L 501.9520, L500.4050, L501.6710, L3100.5475, L101.9900, L100.0100, L3100.3450 ####[facility] [address] [place], [address] Nucleated RBC (Bld) [#/Vol] 0 10*3/uL Normal 0-5 [facility] Comment on above: Order Comment: Order Date: 03/27/24Order Info: 183-05 - CBCDOrder Info: [id number] - SED Performed By: #### L 501.9520, L500.4050, L501.6710, L3100.5475, L101.9900, L100.0100, L3100.3450 ####[facility] [address] [place], [address] Platelet mean volume (Bld) [Entitic vol] 11.3 fL Normal 6.2-12.0 [facility] Comment on above: Order Comment: Order Date: 03/27/24Order Info: 01808-14 - CBCDOrder Info: 43328-3 - SED Performed By: #### L 501.9520, L500.4050, L501.6710, L3100.5475, L101.9900, L100.0100, L3100.3450 ####[facility] [address] [place], [address] Platelets (Bld) [#/Vol] 287 10*3/uL Normal 150-450 [facility] Comment on above: Order Comment: Order Date: 03/27/24Order Info: 183-05 - CBCDOrder Info: [id number] - SED Performed By: #### L 501.9520, L500.4050, L501.6710, L3100.5475, L101.9900, L100.0100, L3100.3450 ####[facility] [address] [place], [address] RBC (Bld) [#/Vol] 5.16 10*6/uL Normal 4.2-5.4 [facility] Comment on above: Order Comment: Order Date: 03/27/24Order Info: 183-05 - CBCDOrder Info: 60572-1 - SED Performed By: #### L 501.9520, L500.4050, L501.6710, L3100.5475, L101.9900, L100.0100, L3100.3450 ####[facility] [address] [place], [address] RDW SD 41.2 fl Normal 35.1-43.9 [facility] Comment on above: Order Comment: Order Date: 03/27/24Order Info: 183-05 - CBCDOrder Info: 12441-4 - SED Performed By: #### L 501.9520, L500.4050, L501.6710, L3100.5475, L101.9900, L100.0100, L3100.3450 ####[facility] [address] [place], [address] WBC (Bld) [#/Vol] 7.6 10*3/uL Normal 4.4-11.0 [facility] Comment on above: Order Comment: Order Date: 03/27/24Order Info: 183-05 - CBCDOrder Info: 21213-9 - SED Performed By: #### L 501.9520, L500.4050, L501.6710, L3100.5475, L101.9900, L100.0100, L3100.3450 ####[facility] [address] [place], [place], [address] CRPon 03-27-2024 C-REACTIVE PROT 3.32 mg/L High 0.0-3.0 [facility] Comment on above: Order Comment: Order Date: 03/27/24Order Info: 0786- - CMPOrder Info: 41505-9 - CRPOrder Info: 3 - TSH Result Comment: C-Re active Protein (CRP) provides useful information for the diagnosis, therapy and monitoring of inflammatory processes and associated diseases. For the evaluation of Relative Risk for Cardiovascular Disease, a High Sensitivity CRP (HSCRP) should be ordered. Performed By: #### L 501.9520, L500.4050, L501.6710, L3100.5475, L101.9900, L100.0100, L3100.3450 ####[facility] [address] [place], [place], [address] Comprehensive Metabolic Prof ilon 03-27-2024 Albumin [Mass/Vol] 3.7 g/dL Normal 3.2-5.0 [facility] Comment on above: Order Comment: Order Date: 03/27/24Order Info: 0786-1 - CMPOrder Info: 53090-4 - CRPOrder Info: 3 - TSH Performed By: #### L 501.9520, L500.4050, L501.6710, L3100.5475, L101.9900, L100.0100, L3100.3450 ####[facility] [address] [place], [place], [address] Albumin/Globulin [Mass ratio] 1.1 {ratio} Normal 0.9-2.4 [facility] Comment on above: Order Comment: Order Date: 03/27/24Order Info: 0786- - CMPOrder Info: 21307-0 - CRPOrder Info: 3015-07 - TSH Performed By: #### L 501.9520, L500.4050, L501.6710, L3100.5475, L101.9900, L100.0100, L3100.3450 ####[facility] [address] [place], [address] ALK P 146 U/L High 45-117 [facility] Comment on above: Order Comment: Order Date: 03/27/24Order Info: 07-1 - CMPOrder Info: 81627-3 - CRPOrder Info: 3 - TSH Performed By: #### L 501.9520, L500.4050, L501.6710, L3100.5475, L101.9900, L100.0100, L3100.3450 ####[facility] [address] [place], [address] ALT [Catalytic activity/Vol] 18 U/L Normal 13-56 [facility] Comment on above: Order Comment: Order Date: 03/27/24Order Info: 785-05 - CMPOrder Info: - CRPOrder Info: 3 - TSH Performed By: #### L 501.9520, L500.4050, L501.6710, L3100.5475, L101.9900, L100.0100, L3100.3450 ####[facility] [address] [place], [address] AST [Catalytic activity/Vol] 14 U/L Low 15-37 [facility] Comment on above: Order Comment: Order Date: 03/27/24Order Info: 07 - CMPOrder Info: 15431-9 - CRPOrder Info: 3015-3 - TSH Performed By: #### L 501.9520, L500.4050, L501.6710, L3100.5475, L101.9900, L100.0100, L3100.3450 ####[facility] [address] [place], [address] Bilirubin [Mass/Vol] 0.70 mg/dL Normal 0.20-1.00 [facility] Comment on above: Order Comment: Order Date: 03/27/24Order Info: 07-1 - CMPOrder Info: - CRPOrder Info: 3015-3 - TSH Result Comment: For patients on eltrombopag therapy, use of Dimension [place] TBIL is not recommended. Performed By: #### L 501.9520, L500.4050, L501.6710, L3100.5475, L101.9900, L100.0100, L3100.3450 ####[facility] [address] [place], [address] BUN/CRE 16.0 RATIO Normal 10-20 [facility] Comment on above: Order Comment: Order Date: 03/27/24Order Info: 785-1 - CMPOrder Info: 84023-7 - CRPOrder Info: 3 - TSH Performed By: #### L 501.9520, L500.4050, L501.6710, L3100.5475, L101.9900, L100.0100, L3100.3450 ####[facility] [address] [place], [address] CA,Total 10.0 mg/dL Normal 8.5-10.1 [facility] Comment on above: Order Comment: Order Date: 03/27/24Order Info: 07- - CMPOrder Info: 05455-0 - CRPOrder Info: 3 - TSH Performed By: #### L 501.9520, L500.4050, L501.6710, L3100.5475, L101.9900, L100.0100, L3100.3450 ####[facility] [address] [place], [address] Chloride [Moles/Vol] 104 mmol/L Normal 98-107 [facility] Comment on above: Order Comment: Order Date: 03/27/24Order Info: 07-1 - CMPOrder Info: 77119-4 - CRPOrder Info: 3 - TSH Performed By: #### L 501.9520, L500.4050, L501.6710, L3100.5475, L101.9900, L100.0100, L3100.3450 ####[facility] [address] [place], [address] CO2 [Moles/Vol] 26.0 mmol/L Normal 21.0-32.0 [facility] Comment on above: Order Comment: Order Date: 03/27/24Order Info: 07- - CMPOrder Info: [id number] - CRPOrder Info: 3015-07 - TSH Performed By: #### L 501.9520, L500.4050, L501.6710, L3100.5475, L101.9900, L100.0100, L3100.3450 ####[facility] [address] [place], [place], [address] Creatinine [Mass/Vol] 1.06 mg/dL High 0.55-1.02 [facility] Comment on above: Order Comment: Order Date: 03/27/24Order Info: 785-05 - CMPOrder Info: - CRPOrder Info: 3015-07 - TSH Result Comment: The validity of the calculated GFR GFRAA in patients over 70 years has not been determined. Clinical correlation is essential. Performed By: #### L 501.9520, L500.4050, L501.6710, L3100.5475, L101.9900, L100.0100, L3100.3450 ####[facility] [address] [place], [address] EST GFR - AA 64 mL/min Normal >60 [facility] Comment on above: Order Comment: Order Date: 03/27/24Order Info: 07 - CMPOrder Info: - CRPOrder Info: 3 - TSH Result Comment: Afri can Colombian GFR Calc Performed By: #### L 501.9520, L500.4050, L501.6710, L3100.5475, L101.9900, L100.0100, L3100.3450 ####[facility] [address] [place], [address] GAP 7 Normal 5-15 [facility] Comment on above: Order Comment: Order Date: 03/27/24Order Info: 07- - CMPOrder Info: [id number] - CRPOrder Info: 3015-3 - TSH Performed By: #### L 501.9520, L500.4050, L501.6710, L3100.5475, L101.9900, L100.0100, L3100.3450 ####[facility] [address] [place], [address] GFR/1.73 sq M.predicted among non-blacks MDRD (S/P/Bld) [Vol rate/Area] 53 mL/min/{1.73_m2} Low >60 [facility] Comment on above: Order Comment: Order Date: 03/27/24Order Info: 785-05 - CMPOrder Info: - CRPOrder Info: 3015-3 - TSH Result Comment: Non- GFR Calc Performed By: #### L 501.9520, L500.4050, L501.6710, L3100.5475, L101.9900, L100.0100, L3100.3450 ####[facility] [address] [place], [address] Globulin (S) [Mass/Vol] 3.5 g/dL Normal 2.2-4.2 [facility] Comment on above: Order Comment: Order Date: 03/27/24Order Info: 07- - CMPOrder Info: 10251-1 - CRPOrder Info: 3015-3 - TSH Performed By: #### L 501.9520, L500.4050, L501.6710, L3100.5475, L101.9900, L100.0100, L3100.3450 ####[facility] [address] [place], [address] Glucose [Mass/Vol] 77 mg/dL Normal 74-106 [facility] Comment on above: Order Comment: Order Date: 03/27/24Order Info: 785- - CMPOrder Info: - CRPOrder Info: 3015-07 - TSH Performed By: #### L 501.9520, L500.4050, L501.6710, L3100.5475, L101.9900, L100.0100, L3100.3450 ####[facility] [address] [place], [address] Potassium [Moles/Vol] 4.2 mmol/L Normal 3.5-5.1 [facility] Comment on above: Order Comment: Order Date: 03/27/24Order Info: 785- - CMPOrder Info: - CRPOrder Info: 3015-07 - TSH Performed By: #### L 501.9520, L500.4050, L501.6710, L3100.5475, L101.9900, L100.0100, L3100.3450 ####[facility] [address] [place], [address] Sodium [Moles/Vol] 137 mmol/L Normal 136-145 [facility] Comment on above: Order Comment: Order Date: 03/27/24Order Info: 785-05 - CMPOrder Info: - CRPOrder Info: 3015-07 - TSH Performed By: #### L 501.9520, L500.4050, L501.6710, L3100.5475, L101.9900, L100.0100, L3100.3450 ####[facility] [address] [place], [address] T PROT 7.2 g/dL Normal 6.4-8.2 [facility] Comment on above: Order Comment: Order Date: 03/27/24Order Info: 785- - CMPOrder Info: - CRPOrder Info: 3015-07 - TSH Performed By: #### L 501.9520, L500.4050, L501.6710, L3100.5475, L101.9900, L100.0100, L3100.3450 ####[facility] [address] [place], [place], [address] Urea nitrogen [Mass/Vol] 17 mg/dL Normal 7-18 [facility] Comment on above: Order Comment: Order Date: 03/27/24Order Info: 0786-1 - CMPOrder Info: 82354-0 - CRPOrder Info: 301-3 - TSH Performed By: #### L 501.9520, L500.4050, L501.6710, L3100.5475, L101.9900, L100.0100, L3100.3450 ####[facility] [address] [place], [place], [address] Erythrocyte Sed Rateon 03-27 SED RATE 17 mm/hr Normal 0-30 [facility] Comment on above: Order Comment: Order Date: 03/27/24Order Info: 0184-1 - CBCDOrder Info: 73160-9 - SED Performed By: #### L 501.9520, L500.4050, L501.6710, L3100.5475, L101.9900, L100.0100, L3100.3450 ####[facility] [address] [place], [place], [address] Thyroid Stim Hormone (TSH)on 03-27-2024 TSH 0.942 uIU/mL Normal 0.358-3.74 0 [facility] Comment on above: Order Comment: Order Date: 03/27/24Order Info: 0786-1 - CMPOrder Info: [id number] - CRPOrder Info: 3016-3 - TSH Performed By: #### L 501.9520, L500.4050, L501.6710, L3100.5475, L101.9900, L100.0100, L3100.3450 ####[facility] [address] [place], [place], [address] Carotid Duplex Ultrasoundon 01-10-2024 Carotid Duplex Ultrasound [facility] [address] [place] [address] Carotid Duplex Ultrasound 01/10/24 1008 MR#: [id number] Acct: [id number] Name: CHERIE JIMENEZ Rep #: [id number] : 1945 78 From: Alyce Ricketts MD Attending Dr: Dr. Alyce Cantrell MD Status: REG CL I Ordering Dr: Alyce Cantrell MD Date: 01/10/24 Location: [facility] Sex: F C Admitted: Reason For Study: Carotid bruit Rt. Velocities/BP Lt. Velocities/BP Prox CCA 68.3/11.6 cm/sec. Prox CCA 88.3/21.2 cm/sec. Mid CCA 67.4/15.4 cm/sec. Mid CCA 86.1/17.9 cm/sec. Dist CCA 70.2/17.3 cm/sec. Dist CCA 63/13.5 cm/sec. Prox ICA 54.1/11.6 cm/sec. Prox ICA 47.6/15.7 cm/sec. Mid ICA 78.7/23 cm/sec. Mid ICA 75.1/27.8 cm/sec. Dist ICA 59.8/15.4 cm/sec. Dist ICA 38.1/13.6 cm/sec. Rt. ICA/CCA = 1.17. Lt. ICA/CCA = 0.87. Prox ECA 78.7/12.6 cm/sec. Prox ECA 89.4/12.4 cm/sec. Rt. Vert. 41.3/13.3 cm/sec. Lt. Vert. 33/13 cm/sec. Right Extracranial There is homogeneous, smooth atherosclerotic plaque noted in the right common carotid artery. There is intimal thickening but no significant atherosclerotic plaque noted in the right internal carotid artery. There is heterogeneous, irregular atherosclerotic plaque noted in the right external carotid artery. Antegrade flow is noted in the right vertebral artery. Left Extracranial There is homogeneous, smooth atherosclerotic plaque noted in the left common carotid artery. There is heterogeneous, irregular atherosclerotic plaque noted in the left internal carotid artery. There is heterogeneous, irregular atherosclerotic plaque noted in the left external carotid artery. Antegrade flow is noted in the left vertebral artery. Procedure Carotid Duplex 62704. This is a Carotid Duplex examination using B-mode, color flow and specral Doppler. Exam performed in department. VL/Carotid Duplex Ultrasound Interpretation Summary Normal right extracranial internal carotid. Mild (<50%) stenosis left extracranial internal carotid. Patent and antegrade vertebrals bilaterally. ___ Ordering Physician: Alyce Cantrell Referring Physician: Alyce Cantrell Performed By: Latesha Snyder RVT 01/10/24 1610 Date Alyce Ricketts MD CC: Dr. Alyce Cantrell MD Date Dictated: 01/10/24 1008 Date Transcribed: 01/10/24 1610 [employer] Cart Repairer: Signed Normal [facility] Cerv Spine Obl/Flex/Ext Comp on 01-02-2024 Cerv Spine Obl/Flex/Ext Comp [facility] [address] [place] [address] Cerv Spine Obl/Flex/Ext Comp MR#: [id number] Acct: [id number] Name: CHERIE JIMENEZ Rep #: [id number] : 1945 F 78 From: Jorge Alfaro MD PCP: Dr. Alyce Cantrell MD Status: REG CLI Study: Cerv Spine Obl/Flex/Ext Comp Date of Exam: Exam# [id number] Ordering Dr: Alyce Cantrell MD [id number] STUDY: X-RAY - CERVICAL SPINE REASON FOR EXAM: Female, 78 years old. Cervicalgia TECHNIQUE: 7 view(s) of the cervical spine were obtained. COMPARISON: CT 01/31/2021 FINDINGS: Normal anterior atlantoaxial articulation. Normal odontoid process. Normal cervical lordosis. 2 mm retrolisthesis of C5 on C6. Normal vertebral bodies and endplates. Focal disc space narrowing at C5/C6. Normal visualized intervertebral neuroforamina. The soft tissue structures are unremarkable. RAD/Cerv Spine Obl/Flex/Ext Comp IMPRESSION: Focal degenerative disc disease at C5-C6 with 2 mm retrolisthesis of C5 on C6. Electronically Signed: Jorge Alfaro MD at 8:50 EDT , CC: Dr. Alyce Cantrell MD [employer]r: Signed Normal [facility] L/S Spine Min 4 Viewson 12-14 L/S Spine Min 4 Views [facility] [address] [place] [address] L/S Spine Min 4 Views MR#: [id number] Acct: [id number] Name: CHERIE JIMENEZ Rep #: [id number] : 1945 F 78 From: Jorge Alfaro MD PCP: Dr. Alyce Cantrell MD Status: REG CLI Study: L/S Spine Min 4 Views Date of Exam: 01/02/24 Exam# [id number] Ordering Dr: Alyce Cantrell MD [id number] STUDY: X-RAY - LUMBAR SPINE REASON FOR EXAM: Female, 78 years old. LOW BACK PAIN TECHNIQUE: 5 view(s) of the lumbar spine were obtained. COMPARISON: None FINDINGS: Normal lumbar lordosis. Mild dextroscoliosis centered at L4. 2 mm of anterolisthesis of L4 on L5. There is multilevel endplate spondylosis of the lumbar vertebrae. There is multi-level degenerative disc disease with multi-level disc space narrowing. There is multilevel facet hypertrophy. The soft tissue structures are unremarkable. RAD/L/S Spine Min 4 Views IMPRESSION: Mild dextroscoliosis with degenerative disc disease. MRI may be useful. Electronically Signed: Jorge Alfaro MD at 8:48 EDT , CC: Dr. Alyce Cantrell MD [employer]airer: Signed Normal [facility] RANDELL BY IFA SCREENon 12-23-19 24 Nuclear Ab pattern (S) [Interp] Nuclear fine speckled Normal [facility] Comment on above: Order Comment: Speci men Type: URINE SPECIMEN Ordering Facility: [facility] Address: [address] [place] [address] Performed By: #### 2 890-2 #### [facility] CLIA [id number] [address] [place] [address] [place] Nuclear Ab Ql (S) Positive Abnormal Negative [facility] Comment on above: Order Comment: Speci men Type: URINE SPECIMEN Ordering Facility: [facility] Address: [address] [place] [address] Result Comment: Anti -nuclear antibody test is used as an aid in diagnosis of systemic autoimmune diseases. Where positive and clinically warranted, follow-up using disease-specific testing is recommended. Low positive titers are not uncommon with advanced age, certain chronic infections, and malignancies among others. Test methodology: Indirect fluorescence immunoassay (IFA) using HEp-2 cells. 1:1280 Performed By: #### 2 890-2 #### [facility] CLIA [id number] [address] [place] [address] [place] C-REACTIVE PROTEINon 024 CRP [Mass/Vol] mg/dL NINF - 0.9 mg/dL [facility] CNOVon 12-23-2023 CNOV Office Visit (RHEUMN ) ----- CHERIE JIMENEZ ([id number]) 1945 F YBB Date Time Provider Department 12/23/23 11:00 AM SCARLETT CABRERA During your visit today, we recorded the following information about you: Temperature Pulse Blood pressure Weight 97.8 degrees 79/minute 125/64 60.4 kg Height 1.63 m Scarlett Cabrera MD 12/23/2023 1:09 PM Signed Consultation requested by Dr. Alyce Cantrell for an opinion regarding joint pain. My final recommendations will be communicated back to the requesting physician by way of shared Medical record or letter to requesting physician via US mail. Chief Complaint: joint pain HPI: About 5-6 months ago she started to get pain in the wrists and hands. No swelling. Dorsum of hands and PIPs. Has a known ganglion cyst on left wrist. She is very stiff in the morning - hips and knees, not too much in the hands. With standing a lot, her back gets sore and has to sit down. Back is stiff with sitting for a while. She gets pain on the sides of the hip down the leg while sleeping at night. It wakes her at night and then has to switch sides. Then it happens on the other side. So constantly rolling from side to side. Also gets hot flashes at night and urinating in the night. Sleep interrupted and gets tired during the day. Sometimes naps. Saw PCP in September who prescribed HCQ 100mg daily for 3 weeks with no issues, then increased to 200mg but she developed nausea/abd pain. Went back to 100mg for a few weeks and since there was no improvement in her symptoms, she stopped it. Has known FMS, SFN, IBS, familial tremor. She is not taking any medications for pain. Has tried gabapentin/lyrica/cymbalt a/amitriptyline - either not helpful or had an adverse reaction. Very sensitive to meds. SFN affect feet/hands. Follows with Dr. Hdez's office. Denies severe dry eyes/mouth, although her eyes bother her by midafternoon on some days. No swollen glands. 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 Had a TIA 12/2022 and now on a baby aspirin. Son diagnosed with psoriatic arthritis/?RA. Patient does not have psoriasis. , Bhargav, patient in this practice, 07/2022. 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 No date: Skin cancer, basal cell Comment: and squamous cell 1986: Thoracic outlet syndrome Comment: 1st rib resection FAMILY HISTORY Problem Relation Age of Onset Coronary Artery Disease Father other (tremors) Father siblings other (syringomyelia) Father Prostate Cancer Brother other (Senile Dementia) Mother other (hemiplegic migraines) Son PAST SURGICAL HISTORY No date: CATARACT EXTRACTION HX Comment: right eye 07/2014: CHOLECYSTECTOMY 01/31/2013: COLONOSCOP W/ OR W/O [facility] SPE[facility] Comment: Colonoscopy No date: PAST SURGICAL HISTORY OF Comment: hyster No date: PAST SURGICAL HISTORY OF Comment: appendectomy No date: PAST SURGICAL HISTORY OF Comment: tubal No date: PAST SURGICAL HISTORY OF Comment: tonsils 2000: PAST SURGICAL HISTORY OF Comment: Moh's procedure Social History Tobacco Use Smoking status: Former Packs/day: 1.00 Years: 50.00 Additional pack years: 0.00 Total pack years: 50.00 Types: Cigarettes Start date: 1965 Quit date: 05/19/2015 Years since quittin.6 Smokeless tobacco: Never Substance Use Topics Alcohol use: No Drug use: Never Allergies: ALLERGIES Allergen Reactions Adhesive Tape (Chanel* Rash Polysporin [Bacitra* Swelling Augmentin [Amoxicil* Vomiting Hydrocodone-Acetami* GI Upset Propoxyphene Vomiting Skelaxin [Metaxalon* Other: See Comments Rapid heartbeat Medications: levothyroxine (SYNTHROID) 75 mcg tablet Take 75 [...] Take 2,000 Units by mouth once daily. polyethylene glycol 3350 (MIRALAX, GLYCOLAX) 17 [...] 90 mcg/actuation inhaler Inhale 2 Puffs as ins (more content not included)... Normal [facility] CRP SerPl-mCncon 12-23-2023 CRP [Mass/Vol] mg/L Normal <0.9 [facility] Comment on above: Order Comment: Speci men Type: URINE SPECIMEN Ordering Facility: [facility] Address: [address] [place] [address] Performed By: #### 2 890-2 #### [facility] CLIA [id number] [address] [place] [address] [place] Centromere Ab IF Ql (S)on Centromere Ab Qn (S) <0.2 Normal <1.0 [facility] Comment on above: Order Comment: Speci men Type: BLOOD SPECIMENOrdering Facility: [facility] Address: [address] [place] [address] Result Comment: Anti -centromere antibody is used as in aid in diagnosis of systemic sclerosis. Clinical correlation is required. Test Methodology: Multiplex flow immunoassay. Performed By: #### 1 7791-5, 20727-8, 93684-0, 98246-2, 63677-0, 55614-5, 90847-3, 25145-5 ####[facility] [id number] [place] [address] [place] CENTROMERE AB QUAL Negative Normal Negative [facility] Comment on above: Order Comment: Speci men Type: BLOOD SPECIMENOrdering Facility: [facility] Address: [address] [place] [address] Performed By: #### 1 7791-5, 31991-2, 07443-9, 26249-2, 16695-1, 76557-8, 05044-0, 40093-6 ####[facility] [id number] [place] [address] [place] Chromatin Ab Qnon 12-23-2023 CHROMATIN AB QUAL Negative Normal Negative [facility] Comment on above: Order Comment: Speci men Type: BLOOD SPECIMENOrdering Facility: [facility] Address: [address] [place] [address] Performed By: #### 1 7791-5, 30576-1, 38167-7, 40124-4, 88656-2, 51850-0, 35320-1, 87339-7 ####[facility] [id number] [place] [address] [place] Chromatin Ab SerPl-aCncon Chromatin Ab Qn <0.2 Normal <1.0 [facility] Comment on above: Order Comment: Speci men Type: BLOOD SPECIMENOrdering Facility: [facility] Address: [address] [place] [address] Result Comment: Test Methodology: Multiplex flow immunoassay. Performed By: #### 1 7791-5, 82644-7, 35043-6, 41660-1, 05013-6, 16991-9, 20979-9, 35647-6 ####[facility] [id number] [place] [address] [place] Cyclic citrullinated peptide IgG Qnon 12-23-2023 CCP ANTIBODY IGG QUALITATIVE Negative Normal Negative [facility] Comment on above: Order Comment: Speci men Type: URINE SPECIMEN Ordering Facility: [facility] Address: [address] [place] [address] Performed By: #### 2 890-2 #### [facility] CLIA [id number] [address] [place] [address] [place] RYNE Jo1 Ab Ser-aCncon 2023 Briseida-1 extractable nuclear Ab Qn (S) <0.2 Normal <1.0 [facility] Comment on above: Order Comment: Speci men Type: BLOOD SPECIMENOrdering Facility: [facility] Address: [address] [place] [address] Performed By: #### 1 7791-5, 56747-6, 81445-2, 70198-9, 60517-0, 90179-4, 52178-7, 86544-1 ####[facility] [id number] [place] [address] [place] RYNE TIMBER SETTER Ab Ser-aCncon 2023 Ribonucleoprotein extractable nuclear Ab Qn (S) <0.2 Normal <1.0 [facility] Comment on above: Order Comment: Speci men Type: BLOOD SPECIMENOrdering Facility: [facility] Address: [address] [place] [address] Performed By: #### 1 7791-5, 00849-1, 98254-3, 23352-4, 75602-6, 05660-5, 61509-5, 68571-7 ####[facility] [id number] [place] [address] [place] RYNE SM IgG Ser-aCncon 2023 Cantrell extractable nuclear IgG Qn (S) <0.2 Normal <1.0 [facility] Comment on above: Order Comment: Speci men Type: BLOOD SPECIMENOrdering Facility: [facility] Address: [address] [place] [address] Performed By: #### 1 7791-5, 87980-8, 23595-5, 80519-5, 19436-8, 91968-0, 25118-1, 80973-8 ####[facility] [id number] [place] [address] [place] RYNE SS-A Ab Ser-aCncon 12-22 Sjogrens syndrome-A extractable nuclear Ab Qn (S) 0.9 AI Normal <1.0 [facility] Comment on above: Order Comment: Speci men Type: BLOOD SPECIMENOrdering Facility: [facility] Address: [address] [place] [address] Result Comment: Test Methodology: Multiplex flow immunoassay. Performed By: #### 1 7791-5, 89169-4, 70173-8, 94819-1, 34999-5, 85526-2, 75185-6, 96208-5 ####[facility] [id number] [place] [address] [place] RYNE SS-B Ab Ser-aCncon 12-22 Sjogrens syndrome-B extractable nuclear Ab Qn (S) <0.2 Normal <1.0 [facility] Comment on above: Order Comment: Speci men Type: BLOOD SPECIMENOrdering Facility: [facility] Address: [address] [place] [address] Result Comment: Anti -SSB (anti-La) antibody is used as an aid in diagnosis of a variety of systemic autoimmune diseases, especially for Sjogren's syndrome and systemic lupus erythematosus. Clinical correlation is required. Test Methodology: Multiplex flow immunoassay. Performed By: #### 1 7791-5, 17536-3, 71483-5, 72819-9, 01780-1, 32012-3, 41799-7, 40464-1 ####[facility] [id number] [place] [id number] [place] ESR Westergren method (Bld) [Velocity]on 12-23-2023 ESR (Bld) [Velocity] 12 mm/h [facility] Interpretation and review of laboratory results Normal [facility] ESR (Bld) [Velocity] 12 mm/h Normal 0-20 [facility] Comment on above: Order Comment: Speci men Type: BLOOD SPECIMENOrdering Facility: [facility] Address: [address] [place] [address] Performed By: #### 4 537-7 ####[facility] [id number] [place] [address] [place] Briseida-1 extractable nuclear Ab Qn (S)on 12-23-2023 BRISEIDA 1 ANTIBODY QUAL Negative Normal Negative [facility] Comment on above: Order Comment: Speci men Type: BLOOD SPECIMENOrdering Facility: [facility] Address: [address] [place] [address] Result Comment: Anti -BRISEIDA-1 antibody is used as an aid in diagnosis of polymyositis and dermatomyositis especially with pulmonary involvement. A negative result cannot rule out polymyositis or dermatomyositis. Clinical correlation is required. Test Methodology: Multiplex flow immunoassay. Performed By: #### 1 7791-5, 33754-6, 86305-4, 87306-0, 87276-6, 58624-8, 96237-7, 38628-7 ####[facility] [id number] [place] [address] [place] No Panel Informationon 12-22 Interpretation and review of laboratory results Normal [facility] RHEUMATOID FACTORon 12-23-19 24 Rheumatoid factor Qn NINF [facility] Rheumatoid fact SerPl-aCncon 12-23-2023 Rheumatoid factor Qn [IU]/mL Normal <16 [facility] Comment on above: Order Comment: Speci men Type: URINE SPECIMEN Ordering Facility: [facility] Address: [address] [place] [address] Performed By: #### 2 890-2 #### [facility] CLIA [id number] 1 [place] [id number] [place] Ribonucleoprotein extractabl e nuclear Ab Qn (S)on 12-23-2023 ANTI-TIMBER SETTER QUAL Negative Normal Negative [facility] Comment on above: Order Comment: Speci men Type: BLOOD SPECIMENOrdering Facility: [facility] Address: [address] [place] [address] Performed By: #### 1 7791-5, 58554-2, 22284-7, 26333-8, 80298-2, 24207-3, 63015-0, 76372-5 ####[facility] [id number] [place] [address] [place] RIBOSOMAL TIMBER SETTER QUAL Negative Normal Negative [facility] Comment on above: Order Comment: Krisi pamella Type: BLOOD SPECIMENOrdering Facility: [facility] Address: [address] [place] [address] Result Comment: Anti -Ribosomal RNA (Ribosomal P) antibody is used as an aid in diagnosis of systemic autoimmune diseases especially systemic lupus erythematosus and mixed connective tissue disease. Cross-reactivity with Anti-cantrell antibody is not uncommon. Clinical correlation is required. Test Methodology: Multiplex flow immunoassay. Performed By: #### 1 7791-5, 01482-8, 48392-6, 22281-6, 23329-1, 90489-6, 75703-0, 72150-4 ####[facility] [id number] [place] [id number] [place] SCL-70 extractable nuclear I gG IA Qn (S)on 12-23-2023 SCLERODERMA AB QUAL Negative Normal Negative [facility] Comment on above: Order Comment: Krisi pamella Type: BLOOD SPECIMENOrdering Facility: [facility] Address: [address] [place] [address] Performed By: #### 1 7791-5, 78982-3, 26506-6, 51989-5, 19564-0, 85073-1, 00457-3, 04362-3 ####[facility] [id number] [place] [address] [place] SCLERODERMA IGG AB <0.2 Normal <1.0 [facility] Comment on above: Order Comment: Speci men Type: BLOOD SPECIMENOrdering Facility: [facility] Address: [address] [place] [address] Result Comment: Scl- 70/Scleroderma antibody test is used as an aid in diagnosis of systemic sclerosis especially the diffuse cutaneous form. A negative result cannot rule out systemic sclerosis. The final interpretation should consider clinical picture and other test results such as anti-centromere antibody. Test Methodology: Multiplex flow immunoassay. Performed By: #### 1 7791-5, 70214-2, 12275-0, 04524-9, 47724-1, 65487-7, 06350-3, 87745-8 ####[facility] [id number] [place] [address] [place] Sjogrens syndrome-A extracta ble nuclear Ab Qn (S)on 12-23-2023 SSA ANTIBODY QUAL Negative Normal Negative [facility] Comment on above: Order Comment: Speci men Type: BLOOD SPECIMENOrdering Facility: [facility] Address: [address] [place] [address] Performed By: #### 1 7791-5, 39811-7, 40453-1, 62407-9, 68292-5, 46221-1, 08731-4, 47075-5 ####[facility] [id number] [place] [address] [place] Sjogrens syndrome-B extracta ble nuclear Ab Qn (S)on 12-23-2023 SSB ANTIBODY QUAL Negative Normal Negative [facility] Comment on above: Order Comment: Speci men Type: BLOOD SPECIMENOrdering Facility: [facility] Address: [address] [place] [address] Performed By: #### 1 7791-5, 05269-2, 84313-0, 45602-2, 61191-6, 05168-9, 77052-1, 89601-7 ####[facility] [id number] [place] [id number] [place] Cantrell extractable nuclear Ig G Qn (S)on 12-23-2023 SM ANTIBODY QUAL Negative Normal Negative [facility] Comment on above: Order Comment: Speci men Type: BLOOD SPECIMENOrdering Facility: [facility] Address: [address] [place] [address] Result Comment: Anti -Sm (Cantrell) antibody is used as an aid in diagnosis of systemic lupus erythematosus and its presence is associated with renal disease. A negative result cannot rule out systemic lupus erythematosus. Clinical correlation is required. Test Methodology: Multiplex flow immunoassay. Performed By: #### 1 7791-5, 76092-9, 39399-2, 07010-4, 80787-7, 08914-8, 66510-1, 46633-2 ####[facility] [id number] [place] [id number] [place] XR HAND 3V PA/LAT/OBL BILon 12-23-2023 XR HAND 3V PA/LAT/OBL JOSÉ MIGUEL * * *Final Rep ort* * * DATE OF EXAM: Dec 23 2023 1:07PM AOX 5556 - XR HAND 3V PA/LAT/OBL JOSÉ MIGUEL / PROCEDURE REASON: Pain in joint, multiple sites * * * * Physician Interpretation * * * * HISTORY: Pain in joint, multiple sites TECHNIQUE: 3 views of each hand COMPARISON: None. RESULT: There is no acute fracture. No marginal erosions. Moderate right and mild left first CMC joint degenerative change with joint space narrowing and small osteophytes. There is severe narrowing of both small finger DIP joints with tiny osteophytes. Mild to moderate narrowing at other scattered DIP joints of the fingers with tiny osteophytes from degenerative change. Tiny osteophyte formation at the left first IP joint from mild degenerative change. IMPRESSION: DEGENERATIVE CHANGES DESCRIBED Gas Golf Cart Repairer: ERMIAS Transcribe Date/Time: Dec 23 2023 3:37P Dictated by : PRABHA GASTON MD This examination was interpreted and the report reviewed and electronically signed by: PRABHA GASTON MD on Dec 23 2023 3:38PM EST [id number] Normal [facility] XR Hand - bilateral PA and L ateral and Obliqueon 12-23-2023 IMPRESSION: DEGENERATIVE CHANGES DESCRIBED Gas Golf Cart Repairer: ERMIAS Transcribe Date/Time: Dec 23 2023 3:37P Dictated by : PRABHA GASTON MD This examination was interpreted and the report reviewed and electronically signed by: PRABHA GASTON MD on Dec 23 2023 3:38PM EST DIVISION OF RADIOLOGY * * *Final Report* * * DATE OF EXAM: Dec 23 2023 1:07PM AOX 5556 - XR HAND 3V PA/LAT/OBL JOSÉ MIGUEL / PROCEDURE REASON: Pain in joint, multiple sites * * * * Physician Interpretation * * * * HISTORY: Pain in joint, multiple sites TECHNIQUE: 3 views of each hand COMPARISON: None. RESULT: There is no acute fracture. No marginal erosions. Moderate right and mild left first CMC joint degenerative change with joint space narrowing and small osteophytes. There is severe narrowing of both small finger DIP joints with tiny osteophytes. Mild to moderate narrowing at other scattered DIP joints of the fingers with tiny osteophytes from degenerative change. Tiny osteophyte formation at the left first IP joint from mild degenerative change. DIVISION OF RADIOLOGY Provider, [facility] - 12/23/2023 * * *Final Report* * * DATE OF EXAM: Dec 23 2023 1:07PM AOX 5556 - XR HAND 3V PA/LAT/OBL JOSÉ MIGUEL / PROCEDURE REASON: Pain in joint, multiple sites * * * * Physician Interpretation * * * * HISTORY: Pain in joint, multiple sites TECHNIQUE: 3 views of each hand COMPARISON: None. RESULT: There is no acute fracture. No marginal erosions. Moderate right and mild left first CMC joint degenerative change with joint space narrowing and small osteophytes. There is severe narrowing of both small finger DIP joints with tiny osteophytes. Mild to moderate narrowing at other scattered DIP joints of the fingers with tiny osteophytes from degenerative change. Tiny osteophyte formation at the left first IP joint from mild degenerative change. IMPRESSION IMPRESSION: DEGENERATIVE CHANGES DESCRIBED Gas Golf Cart Repairer: ERMIAS Transcribe Date/Time: Dec 23 2023 3:37P Dictated by : PRABHA GASTON MD This examination was interpreted and the report reviewed and electronically signed by: PRABHA GASTON MD on Dec 23 2023 3:38PM EST [facility] Radiology Study observation (narrative) Lino bentley [facility] XR Hand - bilateral PA and L ateral and ObliqueOrdered By: [facility]cf Provider on 12-23-[address] [facility] cCP IgG SerPl-aCncon 024 Cyclic citrullinated peptide IgG Qn <15 Normal <20 [facility] Comment on above: Order Comment: Speci men Type: URINE SPECIMEN Ordering Facility: [facility] Address: [address] [place] [address] Performed By: #### 2 890-2 #### [facility] CLIA [id number] [address] STATES OF [facility] Lyme Screen W/Reflex WBon LYME SCREEN Ab Negative Normal Negative [facility] Comment on above: Result Comment: Lyme antibodies not detected. Reflex testing is not indicated. No laboratory evidence of infection with B. burgdorferi (Lyme disease). Negative results may occur in patients recently infected (less than or equal to 14 days) with B. burgdorferi. If recent infection is suspected, repeat testing on a new sample collected in 7 to 14 days is recommended. Performed at: [facility] [id number] Air Drier Machine Operator: Rex Burrows PhD, Phone: [phone] Performed By: #### L 100.0100, L501.6710, L500.4050, L101.9900, L7000.5300 ####[facility] [address] [place], [address] CBC W/Diff, Automatedon 05- Absolute Lymph 1.47 X10 3/uL Normal 0.83-4.51 [facility] Comment on above: Performed By: #### L 100.0100, L501.6710, L500.4050, L101.9900, L7000.5300 ####[facility] [address] [place], [address] Absolute Neut 4.8 X10 3/uL Normal 2.0-7.7 [facility] Comment on above: Performed By: #### L 100.0100, L501.6710, L500.4050, L101.9900, L7000.5300 ####[facility] [address] [place], [address] Basophils/100 WBC (Bld) 0.9 % Normal 0-1 [facility] Comment on above: Performed By: #### L 100.0100, L501.6710, L500.4050, L101.9900, L7000.5300 ####[facility] [address] [place], [address] Eosinophils/100 WBC (Bld) 1.9 % Normal 0-5 [facility] Comment on above: Performed By: #### L 100.0100, L501.6710, L500.4050, L101.9900, L7000.5300 ####[facility] [address] [place], [address] Erythrocyte distribution width (RBC) [Ratio] 12.7 % Normal 11.6-14.6 [facility] Comment on above: Performed By: #### L 100.0100, L501.6710, L500.4050, L101.9900, L7000.5300 ####[facility] [address] [place], [address] Hematocrit (Bld) [Volume fraction] 44.9 % Normal 37-47 [facility] Comment on above: Performed By: #### L 100.0100, L501.6710, L500.4050, L101.9900, L7000.5300 ####[facility] [address] [place], [address] Hemoglobin (Bld) [Mass/Vol] 14.4 g/dL Normal 12.0-15.0 [facility] Comment on above: Performed By: #### L 100.0100, L501.6710, L500.4050, L101.9900, L7000.5300 ####[facility] [address] [place], [address] IG% 0.100 Normal 0.0-0.9 [facility] Comment on above: Result Comment: IG% - Immature Granulocytes (promyelocytes, myelocytes and metamyelocytes) > 1% indicates that a LEFT SHIFT is Present. Performed By: #### L 100.0100, L501.6710, L500.4050, L101.9900, L7000.5300 ####[facility] [address] [place], [address] Lymphocytes/100 WBC (Bld) 21.2 % Normal 19-41 [facility] Comment on above: Performed By: #### L 100.0100, L501.6710, L500.4050, L101.9900, L7000.5300 ####[facility] [address] [place], [address] MCH (RBC) [Entitic mass] 29.3 pg Normal 27.0-32.0 [facility] Comment on above: Performed By: #### L 100.0100, L501.6710, L500.4050, L101.9900, L7000.5300 ####[facility] [address] [place], [address] MCHC (RBC) [Mass/Vol] 32.1 g/dL Normal 32-36 [facility] Comment on above: Performed By: #### L 100.0100, L501.6710, L500.4050, L101.9900, L7000.5300 ####[facility] [address] [place], [address] MCV (RBC) [Entitic vol] 91.3 fL Normal 81-99 [facility] Comment on above: Performed By: #### L 100.0100, L501.6710, L500.4050, L101.9900, L7000.5300 ####[facility] [address] [place], [address] Monocytes/100 WBC (Bld) 6.5 % Normal 0-10 [facility] Comment on above: Performed By: #### L 100.0100, L501.6710, L500.4050, L101.9900, L7000.5300 ####[facility] [address] [place], [address] Neutrophils/100 WBC (Bld) 69.4 % Normal 47-70 [facility] Comment on above: Performed By: #### L 100.0100, L501.6710, L500.4050, L101.9900, L7000.5300 ####[facility] [address] [place], [address] Nucleated RBC (Bld) [#/Vol] 0 10*3/uL Normal 0-5 [facility] Comment on above: Performed By: #### L 100.0100, L501.6710, L500.4050, L101.9900, L7000.5300 ####[facility] [address] [place], [address] Platelet mean volume (Bld) [Entitic vol] 11.0 fL Normal 6.2-12.0 [facility] Comment on above: Performed By: #### L 100.0100, L501.6710, L500.4050, L101.9900, L7000.5300 ####[facility] [address] [place], [address] Platelets (Bld) [#/Vol] 248 10*3/uL Normal 150-450 [facility] Comment on above: Performed By: #### L 100.0100, L501.6710, L500.4050, L101.9900, L7000.5300 ####[facility] [address] [place], [address] RBC (Bld) [#/Vol] 4.92 10*6/uL Normal 4.2-5.4 [facility] Comment on above: Performed By: #### L 100.0100, L501.6710, L500.4050, L101.9900, L7000.5300 ####[facility] [address] [place], [address] RDW SD 42.4 fl Normal 35.1-43.9 [facility] Comment on above: Performed By: #### L 100.0100, L501.6710, L500.4050, L101.9900, L7000.5300 ####[facility] [address] [place], [address] WBC (Bld) [#/Vol] 6.9 10*3/uL Normal 4.4-11.0 [facility] Comment on above: Performed By: #### L 100.0100, L501.6710, L500.4050, L101.9900, L7000.5300 ####[facility] [address] [place], [address] CRPon 09-22-2023 C-REACTIVE PROT < 2.90 Normal 0.0-3.0 [facility] Comment on above: Result Comment: C-Re active Protein (CRP) provides useful information for the diagnosis, therapy and monitoring of inflammatory processes and associated diseases. For the evaluation of Relative Risk for Cardiovascular Disease, a High Sensitivity CRP (HSCRP) should be ordered. Performed By: #### L 100.0100, L501.6710, L500.4050, L101.9900, L7000.5300 ####[facility] [address] [place], [address] Comprehensive Metabolic Prof ilon 09-22-2023 Albumin [Mass/Vol] 3.8 g/dL Normal 3.2-5.0 [facility] Comment on above: Performed By: #### L 100.0100, L501.6710, L500.4050, L101.9900, L7000.5300 ####[facility] [address] [place], [address] Albumin/Globulin [Mass ratio] 1.3 {ratio} Normal 0.9-2.4 [facility] Comment on above: Performed By: #### L 100.0100, L501.6710, L500.4050, L101.9900, L7000.5300 ####[facility] [address] [place], [address] ALK P 106 U/L Normal 45-117 [facility] Comment on above: Performed By: #### L 100.0100, L501.6710, L500.4050, L101.9900, [id number] ####[facility] [address] [place], [address] ALT [Catalytic activity/Vol] 19 U/L Normal 13-56 [facility] Comment on above: Performed By: #### L 100.0100, L501.6710, L500.4050, L101.9900, [id number] ####[facility] [address] [place], [address] AST [Catalytic activity/Vol] 23 U/L Normal 15-37 [facility] Comment on above: Performed By: #### L 100.0100, L501.6710, L500.4050, L101.9900, [id number] ####[facility] [address] [place], [address] Bilirubin [Mass/Vol] 0.60 mg/dL Normal 0.20-1.00 [facility] Comment on above: Result Comment: For patients on eltrombopag therapy, use of Dimension [place] TBIL is not recommended. Performed By: #### L 100.0100, L501.6710, L500.4050, L101.9900, [id number] ####[facility] [address] [place], [address] BUN/CRE 15.3 RATIO Normal 10-20 [facility] Comment on above: Performed By: #### L 100.0100, L501.6710, L500.4050, L101.9900, [id number] ####[facility] [address] [place], [address] CA,Total 9.9 mg/dL Normal 8.5-10.1 [facility] Comment on above: Performed By: #### L 100.0100, L501.6710, L500.4050, L101.9900, [id number] ####[facility] [address] [place], [address] Chloride [Moles/Vol] 106 mmol/L Normal 98-107 [facility] Comment on above: Performed By: #### L 100.0100, L501.6710, L500.4050, L101.9900, [id number] ####[facility] [address] [place], [address] CO2 [Moles/Vol] 27.0 mmol/L Normal 21.0-32.0 [facility] Comment on above: Performed By: #### L 100.0100, L501.6710, L500.4050, L101.9900, L7000.5300 ####[facility] [address] [place], [address] Creatinine [Mass/Vol] 0.91 mg/dL Normal 0.55-1.02 [facility] Comment on above: Result Comment: The validity of the calculated GFR GFRAA in patients over 70 years has not been determined. Clinical correlation is essential. Performed By: #### L 100.0100, L501.6710, L500.4050, L101.9900, L7000.5300 ####[facility] [address] [place], [address] EST GFR - AA 77 mL/min Normal >60 [facility] Comment on above: Result Comment: Afri can Colombian GFR Calc Performed By: #### L 100.0100, L501.6710, L500.4050, L101.9900, L7000.5300 ####[facility] [address] [place], [address] GAP 5 Normal 5-15 [facility] Comment on above: Performed By: #### L 100.0100, L501.6710, L500.4050, L101.9900, L7000.5300 ####[facility] [address] [place], [address] GFR/1.73 sq M.predicted among non-blacks MDRD (S/P/Bld) [Vol rate/Area] 63 mL/min/{1.73_m2} Normal >60 [facility] Comment on above: Result Comment: Non- GFR Calc Performed By: #### L 100.0100, L501.6710, L500.4050, L101.9900, L7000.5300 ####[facility] [address] [place], [address] Globulin (S) [Mass/Vol] 2.9 g/dL Normal 2.2-4.2 [facility] Comment on above: Performed By: #### L 100.0100, L501.6710, L500.4050, L101.9900, [id number] ####[facility] [address] [place], [address] Glucose [Mass/Vol] 92 mg/dL Normal 74-106 [facility] Comment on above: Performed By: #### L 100.0100, L501.6710, L500.4050, L101.9900, [id number] ####[facility] [address] [place], [address] Potassium [Moles/Vol] 4.0 mmol/L Normal 3.5-5.1 [facility] Comment on above: Performed By: #### L 100.0100, L501.6710, L500.4050, L101.9900, [id number] ####[facility] [address] [place], [address] Sodium [Moles/Vol] 138 mmol/L Normal 136-145 [facility] Comment on above: Performed By: #### L 100.0100, L501.6710, L500.4050, L101.9900, [id number] ####[facility] [address] [place], [address] T PROT 6.7 g/dL Normal 6.4-8.2 [facility] Comment on above: Performed By: #### L 100.0100, L501.6710, L500.4050, L101.9900, [id number] ####[facility] [address] [place], [address] Urea nitrogen [Mass/Vol] 14 mg/dL Normal 7-18 [facility] Comment on above: Performed By: #### L 100.0100, L501.6710, L500.4050, L101.9900, [id number] ####[facility] [address] [place], [address] Erythrocyte Sed Rateon 09-21 SED RATE 3 mm/hr Normal 0-30 [facility] Comment on above: Performed By: #### L 100.0100, L501.6710, L500.4050, L101.9900, [id number] ####[facility] [address] [place], [address] Absolute lymphocyte countOrd ered By: Alyce Cantrell on 07-19-2023 Lymphocytes Auto (Unsp spec) [#/Vol] 1.42 10*3/uL 0.83-4.51 [facility] Automated lymphocyte count a s percentage of total leukocytesOrdered By: Alyce Cantrell on 07-19-2023 Lymphocytes/100 WBC Auto (Unsp spec) 22.8 % 19-41 [facility] Basophil percentageOrdered B y: Alyce Cantrell on 07-19-2023 Basophils/100 WBC (Bld) 0.8 % 0-1 [facility] Bilirubin [Mass/Vol] 0.60 mg/dL 0.20-1.00 [facility] Comment on above: For patients on eltr ombopag therapy, use of Dimension [place] TBIL is not recommended. Chloride [Moles/Vol] 108 mmol/L 98-107 [facility] Eosinophils/100 WBC (Bld) 2.3 % 0-5 [facility] Glucose [Mass/Vol] 82 mg/dL 74-106 [facility] Hemoglobin (Bld) [Mass/Vol] 14.5 g/dL 12.0-15.0 [facility] Monocytes/100 WBC (Bld) 8.0 % 0-10 [facility] Neutrophils (Bld) [#/Vol] 4.1 10*3/uL 2.0-7.7 [facility] Neutrophils/100 WBC (Bld) 65.8 % 47-70 [facility] Potassium [Moles/Vol] 3.9 mmol/L 3.5-5.1 [facility] Protein [Mass/Vol] 6.4 g/dL 6.4-8.2 [facility] Sodium [Moles/Vol] 144 mmol/L 136-145 [facility] WBC (Bld) [#/Vol] 6.2 10*3/uL 4.4-11.0 [facility] Determination of erythrocyte mean corpuscular volume (MCV)Ordered By: Alyce Cantrell on 07-19-2023 MCV (RBC) [Entitic vol] 91.7 fL 81-99 [facility] Erythrocyte distribution wid th ratioOrdered By: Alyce Cantrell on 07-19-2023 Erythrocyte distribution width (RBC) [Ratio] 13.5 % 11.6-14.6 [facility] Erythrocyte distribution wid th standard deviationOrdered By: Alyce Cantrell on 07-19-2023 Erythrocyte distribution width (RBC) [Entitic vol] 46.5 fL 35.1-43.9 [facility] Hematocrit Auto (Bld) [Volum e fraction]Ordered By: Alyce Cantrell on 07-19-2023 Hematocrit (Bld) [Volume fraction] 44.3 % 37-47 [facility] Immature granulocytes/100 WB C Auto (Bld)Ordered By: Alyce Cantrell on 07-19-2023 Immature granulocytes/100 WBC (Bld) 0.300 % 0.0-0.9 [facility] Comment on above: IG% - Immature Granu locytes (promyelocytes, myelocytes and metamyelocytes) > 1% indicates that a LEFT SHIFT is Present. Laboratory - Chemistry and C hemistry - challengeOrdered By: Alyce Cantrell on 07-19-2023 Albumin/Globulin [Mass ratio] 1.2 {ratio} 0.9-2.4 [facility] ALP [Catalytic activity/Vol] 116 U/L 45-117 [facility] ALT [Catalytic activity/Vol] 16 U/L 13-56 [facility] CO2 [Moles/Vol] 29.0 mmol/L 21.0-32.0 [facility] Globulin (S) [Mass/Vol] 2.9 g/dL 2.2-4.2 [facility] Urea nitrogen/Creatinine [Mass ratio] 13.2 mg/mg 10-20 [facility] Laboratory - Hematology and Cell countsOrdered By: Alyce Cantrell on 07-19-2023 MCH (RBC) [Entitic mass] 30.0 pg 27.0-32.0 [facility] MCHC (RBC) [Mass/Vol] 32.7 g/dL 32-36 [facility] Nucleated RBC/100 WBC (Bld) [Ratio] 0 % 0-5 [facility] Platelet mean volume (Bld) [Entitic vol] 11.7 fL 6.2-12.0 [facility] Platelets (Bld) [#/Vol] 280 10*3/uL 150-450 [facility] No Panel InformationOrdered By: Alyce Cantrell on 07-19-2023 Estimated GFR (MDRD) Amer 65 mL/min >60 [facility] Comment on above: GFR Calc Estimated GFR (MDRD) Non-Af Amer 53 mL/min >60 [facility] Comment on above: Non- GFR Calc Vitamin D 25-Hydroxy 37.4 ng/mL [facility] Comment on above: Vitamin D 25(OH) Sta tus Range Deficiency <20 ng/mL (50nmol/L) Insufficiency 20 - 30 ng/mL (50 - 75 nmol/L) Sufficiency 30 - 100 ng/mL (75 - 250 nmol/L) Toxicity >100 ng/mL (>250 nmol/L) RBC Auto (Bld) [#/Vol]Ordere d By: Alyce Cantrell on 07-19-2023 RBC (Bld) [#/Vol] 4.83 10*6/uL 4.2-5.4 [facility] Serum or plasma calcium jared urement (mass/volume)Ordered By: Alyce Cantrell on 07-19-2023 Calcium [Mass/Vol] 9.7 mg/dL 8.5-10.1 [facility] Serum or plasma creatinine m easurement (mass/volume)Ordered By: Alyce Cantrell on 07-19-2023 Creatinine [Mass/Vol] 1.06 mg/dL 0.55-1.02 [facility] Comment on above: The validity of the calculated GFR & GFRAA in patients over 70 years has not been determined. Clinical correlation is essential. Serum or plasma urea nitroge n measurement (mass/volume)Ordered By: Alyce Cantrell on 07-19-2023 Urea nitrogen [Mass/Vol] 14 mg/dL 7-18 [facility] Thin prep Papanicolaou smear with manual screeningOrdered By: Alyce Cantrell on 07-19-2023 Thin prep Papanicolaou smear with manual screening 3.5 g/dL 3.2-5.0 [facility] Thin prep Papanicolaou smear with manual screening 15 U/L 15-37 [facility] Thin prep Papanicolaou smear with manual screening 7 5-15 [facility] Absolute lymphocyte countOrd ered By: Emperatriz aZmorano on 06-14-2023 Lymphocytes Auto (Unsp spec) [#/Vol] 0.56 10*3/uL 0.83-4.51 [facility] Automated lymphocyte count a s percentage of total leukocytesOrdered By: Emperatriz Zamorano on 06-14-2023 Lymphocytes/100 WBC Auto (Unsp spec) 9.8 % 19-41 [facility] Basophil percentageOrdered B y: Emperatriz Zamorano on 06-14-2023 Basophils/100 WBC (Bld) 0.0 % 0-1 [facility] Chloride [Moles/Vol] 106 mmol/L 98-107 [facility] Eosinophils/100 WBC (Bld) 0.2 % 0-5 [facility] Glucose [Mass/Vol] 149 mg/dL 74-106 [facility] Comment on above: Fasting Glucose resu lt greater than or equal to 126 mg/dL suggests DIABETES MELLITUS per A.D.A. criteria. Hemoglobin (Bld) [Mass/Vol] 13.7 g/dL 12.0-15.0 [facility] Monocytes/100 WBC (Bld) 1.0 % 0-10 [facility] Neutrophils (Bld) [#/Vol] 5.1 10*3/uL 2.0-7.7 [facility] Neutrophils/100 WBC (Bld) 88.7 % 47-70 [facility] Potassium [Moles/Vol] 4.0 mmol/L 3.5-5.1 [facility] Sodium [Moles/Vol] 137 mmol/L 136-145 [facility] WBC (Bld) [#/Vol] 5.7 10*3/uL 4.4-11.0 [facility] Determination of erythrocyte mean corpuscular volume (MCV)Ordered By: Emperatriz Zamorano on 06-14-2023 MCV (RBC) [Entitic vol] 90.5 fL 81-99 [facility] Erythrocyte distribution wid th ratioOrdered By: Emperatriz Zamorano on 06-14-2023 Erythrocyte distribution width (RBC) [Ratio] 13.2 % 11.6-14.6 [facility] Erythrocyte distribution wid th standard deviationOrdered By: Emperatriz Zamorano on 06-14-2023 Erythrocyte distribution width (RBC) [Entitic vol] 43.3 fL 35.1-43.9 [facility] Hematocrit Auto (Bld) [Volum e fraction]Ordered By: Emperatriz Zamorano on 06-14-2023 Hematocrit (Bld) [Volume fraction] 42.0 % 37-47 [facility] Immature granulocytes/100 WB C Auto (Bld)Ordered By: Emperatriz Zamorano on 06-14-2023 Immature granulocytes/100 WBC (Bld) 0.300 % 0.0-0.9 [facility] Comment on above: IG% - Immature Granu locytes (promyelocytes, myelocytes and metamyelocytes) > 1% indicates that a LEFT SHIFT is Present. Laboratory - Chemistry and C hemistry - challengeOrdered By: Emperatriz Zamorano on 06-14-2023 CO2 [Moles/Vol] 22.0 mmol/L 21.0-32.0 [facility] Magnesium [Mass/Vol] 2.2 mg/dL 1.6-2.6 [facility] Urea nitrogen/Creatinine [Mass ratio] 13.7 mg/mg 10-20 [facility] Laboratory - Hematology and Cell countsOrdered By: Emperatriz Zamorano on 06-14-2023 MCH (RBC) [Entitic mass] 29.5 pg 27.0-32.0 [facility] MCHC (RBC) [Mass/Vol] 32.6 g/dL 32-36 [facility] Nucleated RBC/100 WBC (Bld) [Ratio] 0 % 0-5 [facility] Platelets (Bld) [#/Vol] 338 10*3/uL 150-450 [facility] No Panel InformationOrdered By: Emperatriz Zamorano on 06-14-2023 Estimated Creatinine Clearance Calc 32.81 ml/min [facility] Estimated GFR (MDRD) Amer 54 mL/min >60 [facility] Comment on above: GFR Calc Estimated GFR (MDRD) Non-Af Amer 45 mL/min >60 [facility] Comment on above: Non- GFR Calc Platelet mean volume Alfred-Ec ker (Bld) [Entitic vol]Ordered By: Emperatriz Zamorano on 06-14-2023 Platelet mean volume (Bld) [Entitic vol] 10.5 fL 6.2-12.0 [facility] RBC Auto (Bld) [#/Vol]Ordere d By: Emperatriz Zamorano on 06-14-2023 RBC (Bld) [#/Vol] 4.64 10*6/uL 4.2-5.4 [facility] Serum or plasma calcium jared urement (mass/volume)Ordered By: Emperatriz Zamorano on 06-14-2023 Calcium [Mass/Vol] 10.1 mg/dL 8.5-10.1 [facility] Serum or plasma creatinine m easurement (mass/volume)Ordered By: Emperatriz Zamorano on 06-14-2023 Creatinine [Mass/Vol] 1.24 mg/dL 0.55-1.02 [facility] Comment on above: The validity of the calculated GFR & GFRAA in patients over 70 years has not been determined. Clinical correlation is essential. Serum or plasma thyroid stim ulating hormone (TSH) measurement (units/volume)Ordered By: Emperatriz Zamorano on 06-14-2023 TSH Qn 0.41 uIU/mL 0.358-3.74 [facility] Serum or plasma urea nitroge n measurement (mass/volume)Ordered By: Emperatriz Zamorano on 06-14-2023 Urea nitrogen [Mass/Vol] 17 mg/dL 7-18 [facility] Thin prep Papanicolaou smear with manual screeningOrdered By: Emperatriz Zamorano on 06-14-2023 Thin prep Papanicolaou smear with manual screening 9 5-15 [facility] Absolute lymphocyte countOrd ered By: Adiel Rasheed on 06-13-2023 Lymphocytes Auto (Unsp spec) [#/Vol] 0.88 10*3/uL 0.83-4.51 [facility] Automated lymphocyte count a s percentage of total leukocytesOrdered By: Adiel Rasheed on 06-13-2023 Lymphocytes/100 WBC Auto (Unsp spec) 11.5 % 19-41 [facility] Basophil percentageOrdered B y: Adiel Rasheed on 06-13-2023 Basophils/100 WBC (Bld) 0.5 % 0-1 [facility] Chloride [Moles/Vol] 102 mmol/L 98-107 [facility] Eosinophils/100 WBC (Bld) 0.8 % 0-5 [facility] Glucose [Mass/Vol] 115 mg/dL 74-106 [facility] Comment on above: Fasting Glucose resu lt from 100 to 125 mg/dL suggests IMPAIRED HOMEOSTASIS per A.D.A. criteria. Hemoglobin (Bld) [Mass/Vol] 13.7 g/dL 12.0-15.0 [facility] Monocytes/100 WBC (Bld) 5.6 % 0-10 [facility] Neutrophils (Bld) [#/Vol] 6.2 10*3/uL 2.0-7.7 [facility] Neutrophils/100 WBC (Bld) 81.3 % 47-70 [facility] Potassium [Moles/Vol] 4.1 mmol/L 3.5-5.1 [facility] Sodium [Moles/Vol] 135 mmol/L 136-145 [facility] WBC (Bld) [#/Vol] 7.7 10*3/uL 4.4-11.0 [facility] Determination of erythrocyte mean corpuscular volume (MCV)Ordered By: Adiel Rasheed on 06-13-2023 MCV (RBC) [Entitic vol] 90.0 fL 81-99 [facility] Erythrocyte distribution wid th ratioOrdered By: Adiel Rasheed on 06-13-2023 Erythrocyte distribution width (RBC) [Ratio] 13.0 % 11.6-14.6 [facility] Erythrocyte distribution wid th standard deviationOrdered By: Adiel Rasheed on 06-13-2023 Erythrocyte distribution width (RBC) [Entitic vol] 43.2 fL 35.1-43.9 [facility] Hematocrit Auto (Bld) [Volum e fraction]Ordered By: Adiel Rasheed on 06-13-2023 Hematocrit (Bld) [Volume fraction] 43.0 % 37-47 [facility] Immature granulocytes/100 WB C Auto (Bld)Ordered By: Adiel Rasheed on 06-13-2023 Immature granulocytes/100 WBC (Bld) 0.300 % 0.0-0.9 [facility] Comment on above: IG% - Immature Granu locytes (promyelocytes, myelocytes and metamyelocytes) > 1% indicates that a LEFT SHIFT is Present. Laboratory - Chemistry and C hemistry - challengeOrdered By: Adiel Rasheed on 06-13-2023 CO2 [Moles/Vol] 25.0 mmol/L 21.0-32.0 [facility] Natriuretic peptide B (Bld) [Mass/Vol] 48.9 pg/mL 0-100 [facility] Urea nitrogen/Creatinine [Mass ratio] 13.3 mg/mg 10-20 [facility] Laboratory - Hematology and Cell countsOrdered By: Adiel Rasheed on 06-13-2023 MCH (RBC) [Entitic mass] 28.7 pg 27.0-32.0 [facility] MCHC (RBC) [Mass/Vol] 31.9 g/dL 32-36 [facility] Nucleated RBC/100 WBC (Bld) [Ratio] 0 % 0-5 [facility] Platelets (Bld) [#/Vol] 325 10*3/uL 150-450 [facility] Laboratory - Microbiology an d Antimicrobial susceptibilityOrdered By: Adiel Rasheed on 06-13-2023 SARS-CoV-2 (COVID-19) RNA ELEUTERIO+probe Ql (Unsp spec) [facility] No Panel InformationOrdered By: Adiel Rasheed on 06-13-2023 D-Dimer Quantitative (PE/DVT) 0.53 FEU/ug/m 0.27-0.49 [facility] Comment on above: D-Dimer ELEVATED (>0 .49): Additional studies and clinicalassessments are indicated to conclude diagnosis of:Deep Vein Thrombosis (DVT) or Pulmonary Embolism (PE) Estimated Creatinine Clearance Calc 31.78 ml/min [facility] Estimated GFR (MDRD) Amer 52 mL/min >60 [facility] Comment on above: GFR Calc Estimated GFR (MDRD) Non-Af Amer 43 mL/min >60 [facility] Comment on above: Non- GFR Calc Troponin I High Sensitivity 11 pg/mL 3.0-54.0 [facility] Comment on above: Please Note: New Winsome t Units and Gender Specific Reference Ranges. For more information see Policy Stat Procedure [place] High Sensitivity Troponin (TNIH) and attachments. Platelet mean volume Alfred-Ec ker (Bld) [Entitic vol]Ordered By: Adiel Rasheed on 06-13-2023 Platelet mean volume (Bld) [Entitic vol] 10.2 fL 6.2-12.0 [facility] RBC Auto (Bld) [#/Vol]Ordere d By: Adiel Rasheed on 06-13-2023 RBC (Bld) [#/Vol] 4.78 10*6/uL 4.2-5.4 [facility] Respiratory pathogens detect ion panel by molecular detection methodOrdered By: Emperatriz Zamorano on 06-13-2023 Respiratory pathogens DNA and RNA panel ELEUTERIO+probe (Resp) [facility] Respiratory pathogens DNA and RNA panel ELEUTERIO+probe (Resp) [facility] Serum or plasma calcium jared urement (mass/volume)Ordered By: Adiel Rasheed on 06-13-2023 Calcium [Mass/Vol] 9.8 mg/dL 8.5-10.1 [facility] Serum or plasma creatinine m easurement (mass/volume)Ordered By: Adiel Rasheed on 06-13-2023 Creatinine [Mass/Vol] 1.28 mg/dL 0.55-1.02 [facility] Comment on above: The validity of the calculated GFR & GFRAA in patients over 70 years has not been determined. Clinical correlation is essential. Serum or plasma urea nitroge n measurement (mass/volume)Ordered By: Adiel Rasheed on 06-13-2023 Urea nitrogen [Mass/Vol] 17 mg/dL 7-18 [facility] Thin prep Papanicolaou smear with manual screeningOrdered By: Adiel Rasheed on 06-13-2023 Thin prep Papanicolaou smear with manual screening 8 5-15 [facility] Basophil percentageOrdered B y: Alyce Cantrell on 05-02-2023 Basophil percentage 25-50 SEEN /hpf 0-5 [facility] Bilirubin Test strip Ql (U)O rdered By: Alyce Cantrell on 05-02-2023 Bilirubin Ql (U) Negative Negative [facility] Culture, urineOrdered By: Galileo Cantrell on 05-02-2023 Bacteria identified Cx Nom (U) Mixed Gram Pos & Gram Neg Org [facility] Bacteria identified Cx Nom (U) Mixed Gram Pos & Gram Neg Org [facility] Ketones Test strip Ql (U)Ord ered By: Alyce Cantrell on 05-02-2023 Ketones Ql (U) Negative Negative [facility] Mucus LM Ql (Urine sed)Order ed By: Alyce Cantrell on 05-02-2023 Mucus Ql (Urine sed) 0 SEEN /hpf [facility] Nitrite Test strip Ql (U)Ord ered By: Alyce Cantrell on 05-02-2023 Nitrite Ql (U) Negative Negative [facility] Protein Test strip Ql (U)Ord ered By: Alyce Cantrell on 05-02-2023 Protein Ql (U) Negative Negative [facility] Squamous epithelial cells de tection in urine sediment by light microscopyOrdered By: Alyce Cantrell on 05-02-2023 Epithelial cells.squamous LM Ql (Urine sed) 0-5 SEEN /hpf 5-10 [facility] Urine blood detectionOrdered By: Alyce Cantrell on 05-02-2023 RBC Ql (U) 10 /ul Negative [facility] RBC Ql (U) 0-5 SEEN /hpf 0-5 [facility] Urine clarityOrdered By: Kathe Cantrell on 05-02-2023 Clarity (U) Sl. Cloudy Clear [facility] Urine color determinationOrd ered By: Alyce Cantrell on 05-02-2023 Color (U) Yellow Yellow [facility] Urine glucose detectionOrder ed By: Alyce Cantrell on 05-02-2023 Glucose Ql (U) Normal mg/dl Normal [facility] Urine leukocyte esterase det ection by dipstickOrdered By: Alyce Cantrell on 05-02-2023 Leukocyte esterase Test strip Ql (U) 500 /ul Negative [facility] Urine pHOrdered By: Alyce morton on 05-02-2023 pH (U) 6.0 [pH] 5.0 - 8.0 [facility] Urine sediment bacteria coun t by microscopy (number/high power field)Ordered By: Alyce Cantrell on 05-02-2023 Bacteria LM.HPF (Urine sed) [#/Area] 0 /[HPF] None Seen [facility] Urine specific gravity measu rementOrdered By: Alyce Cantrell on 05-02-2023 Specific gravity (U) [Rel density] 1.010 1.002-1.03 0 [facility] Urobilinogen Auto test strip Ql (U)Ordered By: Alyce Cantrell on 05-02-2023 Urobilinogen Ql (U) Normal mg/dl Normal [facility] Bilirubin Test strip Ql (U)O rdered By: Alyce Cantrell on 04-22-2023 Bilirubin Ql (U) Negative Negative [facility] Culture, urineOrdered By: Galileo Cantrell on 04-22-2023 Bacteria identified Cx Nom (U) Enterococcus faecalis [facility] Bacteria identified Cx Nom (U) Enterococcus faecalis [facility] Ketones Test strip Ql (U)Ord ered By: Alyce Cantrell on 04-22-2023 Ketones Ql (U) Negative Negative [facility] Nitrite Test strip Ql (U)Ord ered By: Alyce Cantrell on 04-22-2023 Nitrite Ql (U) Negative Negative [facility] Protein Test strip Ql (U)Ord ered By: Alyce Cantrell on 04-22-2023 Protein Ql (U) 15 mg/dl Negative [facility] Urine blood detectionOrdered By: Alyce Cantrell on 04-22-2023 RBC Ql (U) Negative Negative [facility] Urine clarityOrdered By: Kathe Cantrell on 04-22-2023 Clarity (U) Clear Clear [facility] Urine color determinationOrd ered By: Alyce Cantrell on 04-22-2023 Color (U) Yellow Yellow [facility] Urine glucose detectionOrder ed By: Alyce Cantrell on 04-22-2023 Glucose Ql (U) Normal mg/dl Normal [facility] Urine leukocyte esterase det ection by dipstickOrdered By: Alyce Cantrell on 04-22-2023 Leukocyte esterase Test strip Ql (U) 100 /ul Negative [facility] Urine pHOrdered By: Alyce morton on 04-22-2023 pH (U) 6.0 [pH] 5.0 - 8.0 [facility] Urine specific gravity measu rementOrdered By: Alyce Cantrell on 04-22-2023 Specific gravity (U) [Rel density] 1.015 1.002-1.03 0 [facility] Urobilinogen Auto test strip Ql (U)Ordered By: Alyce Cantrell on 04-22-2023 Urobilinogen Ql (U) Normal mg/dl Normal [facility] Basophil percentageOrdered B y: Alyce Cantrell on 12-07-2022 Bilirubin [Mass/Vol] 0.40 mg/dL 0.20-1.00 [facility] Comment on above: For patients on eltr ombopag therapy, use of Dimension [place] TBIL is not recommended. Chloride [Moles/Vol] 109 mmol/L 98-107 [facility] Glucose [Mass/Vol] 83 mg/dL 74-106 [facility] Potassium [Moles/Vol] 4.2 mmol/L 3.5-5.1 [facility] Protein [Mass/Vol] 6.5 g/dL 6.4-8.2 [facility] Sodium [Moles/Vol] 140 mmol/L 136-145 [facility] WBC (Bld) [#/Vol] 6.8 10*3/uL 4.4-11.0 [facility] Blood erythrocytes count (nu mber/volume)Ordered By: Alyce Cantrell on 12-07-2022 RBC (Bld) [#/Vol] 4.96 10*6/uL 4.2-5.4 [facility] Blood hemoglobin measurement (mass/volume)Ordered By: Alyce Cantrell on 12-07-2022 Hemoglobin (Bld) [Mass/Vol] 15.0 g/dL 12.0-15.0 [facility] Blood platelet mean volumeOr dered By: Alyce Cantrell on 12-07-2022 Platelet mean volume (Bld) [Entitic vol] 11.7 fL 6.2-12.0 [facility] Determination of erythrocyte mean corpuscular volume (MCV)Ordered By: Alyce Cantrell on 12-07-2022 MCV (RBC) [Entitic vol] 91.7 fL 81-99 [facility] Hematocrit Auto (Bld) [Volum e fraction]Ordered By: Alyce Cantrell on 12-07-2022 Hematocrit (Bld) [Volume fraction] 45.5 % 37-47 [facility] Laboratory - Chemistry and C hemistry - challengeOrdered By: Alyce Cantrell on 12-07-2022 ALP [Catalytic activity/Vol] 121 U/L 45-117 [facility] ALT [Catalytic activity/Vol] 19 U/L 13-56 [facility] CO2 [Moles/Vol] 25.0 mmol/L 21.0-32.0 [facility] Free T4 [Mass/Vol] 1.27 ng/dL 0.76-1.46 [facility] Globulin (S) [Mass/Vol] 3.0 g/dL 2.2-4.2 [facility] Urea nitrogen/Creatinine [Mass ratio] 17.6 mg/mg 10-20 [facility] Laboratory - Hematology and Cell countsOrdered By: Alyce Cantrell on 12-07-2022 Erythrocyte distribution width (RBC) [Entitic vol] 42.5 fL 35.1-43.9 [facility] Erythrocyte distribution width (RBC) [Ratio] 12.5 % 11.6-14.6 [facility] MCH (RBC) [Entitic mass] 30.2 pg 27.0-32.0 [facility] MCHC Auto (RBC) [Mass/Vol]Or dered By: Alyce Cantrell on 12-07-2022 MCHC (RBC) [Mass/Vol] 33.0 g/dL 32-36 [facility] No Panel InformationOrdered By: Alyce Cantrell on 12-07-2022 Urine Microalbumin/Creatinine Ratio 18.9 mg/g CRE <30 [facility] Estimated GFR (MDRD) Amer 68 mL/min >60 [facility] Comment on above: GFR Calc Estimated GFR (MDRD) Non-Af Amer 56 mL/min >60 [facility] Comment on above: Non- GFR Calc Thyroid Stimulating Hormone (TSH) 0.43 uIU/mL 0.358-3.74 [facility] Platelets bldOrdered By: Kathe Cantrell on 12-07-2022 Platelets (Bld) [#/Vol] 234 10*3/uL 150-450 [facility] Serum or plasma albumin jared urement (mass/volume)Ordered By: Alyce Cantrell on 12-07-2022 Albumin [Mass/Vol] 3.5 g/dL 3.2-5.0 [facility] Serum or plasma albumin/glob ulin mass ratioOrdered By: Alyce Cantrell on 12-07-2022 Albumin/Globulin [Mass ratio] 1.2 {ratio} 0.9-2.4 [facility] Serum or plasma calcium jared urement (mass/volume)Ordered By: Alyce Cantrell on 12-07-2022 Calcium [Mass/Vol] 9.5 mg/dL 8.5-10.1 [facility] Serum or plasma creatinine m easurement (mass/volume)Ordered By: Alyce Cantrell on 12-07-2022 Creatinine [Mass/Vol] 1.02 mg/dL 0.55-1.02 [facility] Comment on above: The validity of the calculated GFR & GFRAA in patients over 70 years has not been determined. Clinical correlation is essential. Serum or plasma urea nitroge n measurement (mass/volume)Ordered By: Alyce Cantrell on 12-07-2022 Urea nitrogen [Mass/Vol] 18 mg/dL 7-18 [facility] Thin prep Papanicolaou smear with manual screeningOrdered By: Alyce Cantrell on 12-07-2022 Thin prep Papanicolaou smear with manual screening 44.8 mg/L NO RANGE EST. [facility] Thin prep Papanicolaou smear with manual screening 17 U/L 15-37 [facility] Thin prep Papanicolaou smear with manual screening 6 5-15 [facility] Urine creatinine measurement (mass/volume)Ordered By: Alyce Cantrell on 12-07-2022 Creatinine (U) [Mass/Vol] 237.00 mg/dL NO RANGE EST. [facility] No Panel InformationOrdered By: Dr. Cantrell on 06-02-2022 Stool Pancreatic Elastase 212 >200 [facility] Comment on above: Result Units: ug Liliam st./g Severe Pancreatic Insufficiency: <100 Moderate Pancreatic Insufficiency: 100 - 200 Normal: >200Performed at: BN - [facility] [address] [id number] Director: Suresh Hernandez MD, Phone: [phone] No Panel InformationOrdered By: Dr. Cantrell on 06-01-2022 Anti-Nuclear Antibody Screen Negative Negative [facility] Comment on above: Performed at: - [address] [id number] Director: Rex Burrows PhD, Phone: [phone] Absolute lymphocyte countOrd ered By: Dr. Cotton on 05-13-2022 Lymphocytes Auto (Unsp spec) [#/Vol] 1.65 10*3/uL 0.83-4.51 [facility] Basophil percentageOrdered B y: Dr. Cotton on 05-13-2022 Basophils/100 WBC (Bld) 0.7 % 0-1 [facility] Eosinophils/100 WBC (Bld) 2.4 % 0-5 [facility] Neutrophils (Bld) [#/Vol] 4.8 10*3/uL 2.0-7.7 [facility] Neutrophils/100 WBC (Bld) 67.5 % 47-70 [facility] Testosterone [Mass/Vol] 5 ng/dL 3-67 [facility] WBC (Bld) [#/Vol] 7.2 10*3/uL 4.4-11.0 [facility] Blood erythrocytes count (nu mber/volume)Ordered By: Dr. Cotton on 05-13-2022 RBC (Bld) [#/Vol] 5.05 10*6/uL 4.2-5.4 [facility] Blood hemoglobin measurement (mass/volume)Ordered By: Dr. Cotton on 05-13-2022 Hemoglobin (Bld) [Mass/Vol] 15.1 g/dL 12.0-15.0 [facility] Blood lymphocytes/100 leukoc ytesOrdered By: Dr. Cotton on 05-13-2022 Lymphocytes/100 WBC (Bld) 23.0 % 19-41 [facility] Blood monocytes/100 leukocyt esOrdered By: Dr. Cotton on 05-13-2022 Monocytes/100 WBC (Bld) 6.3 % 0-10 [facility] Blood platelet mean volumeOr dered By: Dr. Cotton on 05-13-2022 Platelet mean volume (Bld) [Entitic vol] 11.2 fL 6.2-12.0 [facility] Determination of erythrocyte mean corpuscular volume (MCV)Ordered By: Dr. Cotton on 05-13-2022 MCV (RBC) [Entitic vol] 90.9 fL 81-99 [facility] Free testosterone percentage Ordered By: Dr. Cotton on 05-13-2022 Testosterone Free/Testosterone.total [Mass fraction] 2.09 % 0.50-2.80 [facility] Hematocrit Auto (Bld) [Volum e fraction]Ordered By: Dr. Cotton on 05-13-2022 Hematocrit (Bld) [Volume fraction] 45.9 % 37-47 [facility] Iron measurement (mass/mass) Ordered By: Dr. Cotton on 05-13-2022 Iron (Unsp spec) [Mass/Mass] 65 ug/dL 50-170 [facility] Laboratory - Chemistry and C hemistry - challengeOrdered By: Dr. Cotton on 05-13-2022 Cobalamin (Vitamin B12) [Mass/Vol] 466 pg/mL 211-911 [facility] Free T4 [Mass/Vol] 1.22 ng/dL 0.76-1.46 [facility] T4 [Mass/Vol] 11.4 ug/dL 4.8-13.9 [facility] Laboratory - Hematology and Cell countsOrdered By: Dr. Cotton on 05-13-2022 Erythrocyte distribution width (RBC) [Entitic vol] 42.5 fL 35.1-43.9 [facility] Erythrocyte distribution width (RBC) [Ratio] 12.9 % 11.6-14.6 [facility] Immature granulocytes/100 WBC (Bld) 0.100 % 0.0-0.9 [facility] Comment on above: IG% - Immature Granu locytes (promyelocytes, myelocytes and metamyelocytes) > 1% indicates that a LEFT SHIFT is Present. MCH (RBC) [Entitic mass] 29.9 pg 27.0-32.0 [facility] Nucleated RBC/100 WBC (Bld) [Ratio] 0 % 0-5 [facility] MCHC Auto (RBC) [Mass/Vol]Or dered By: Dr. Cotton on 05-13-2022 MCHC (RBC) [Mass/Vol] 32.9 g/dL 32-36 [facility] No Panel InformationOrdered By: Dr. Cotton on 05-13-2022 Dehydroepiandrosterone Sulfate 6.0 ug/dL 13.9-142.8 [facility] Free Triiodothyronine (T3) pg/dL 2.7 pg/mL 2.18-3.98 [facility] Thyroid Stimulating Hormone (TSH) 0.45 uIU/mL 0.358-3.74 [facility] Total Iron Binding Capacity 262 ug/dL 250-450 [facility] Platelets bldOrdered By: Dr. Cotton on 05-13-2022 Platelets (Bld) [#/Vol] 234 10*3/uL 150-450 [facility] Serum nuclear antibody titer by immunofluorescenceOrdered By: Dr. Cotton on 05-13-2022 Nuclear Ab IF (S) [Titer] See comment [facility] Comment on above: TEST RESULT LIMITSAn tinuclear Antibodies, IFA Positive Abnormal Negative <1:80 Borderline 1:80 Positive >1:80Speckled Pattern 1:640 High ICAP nomenclature: AC-2,4,5,29Note: For more information about Hep-2 cell patterns useCiscoerNumblebee.[email or web address], the official website for the [employer] on Antinuclear Antibody (RANDELL) Patterns (ICAP). -------A positive RANDELL result may occur in healthy individuals (lowtiter) or be associated with a variety of diseases. Seeinterpretation chart which is not all inclusive:Pattern Antigen Detected Suggested Disease Association Homogeneous DNA(ds,ss), SLE - High titers Nucleosomes, Histones Drug-induced SLE Speckled Sm, TIMBER SETTER, SCL-70, SLE,MCTD,PSS (diffuse form), SS-A/SS-B Sjogrens Nucleolar SCL-70, PM-1/SCL High titers Scleroderma, PM/DM Centromere Centromere PSS (limited form) w/Crest syndrome variable Nuclear Dot [id number] Primary Biliary Cirrhosis Nuclear GP210, Primary Biliary CirrhosisMembrane anuradha A,B,C TESTING PERFORMED AT [facility]. ORIGINAL REPORT ON FILE IN LAB CONTAINS ADDITIONAL TEST SITE INFORMATION. Serum or plasma calcitriol m easurement (mass/volume)Ordered By: Dr. Cotton on 05-13-2022 1,25-dihydroxyvitamin D3 [Mass/Vol] See comment [facility] Comment on above: TEST RESULT LIMITSCa lcitriol(1,25 di-OH Vit D) 46.7 pg/mL 24.8-81.5 TESTING PERFORMED AT [facility]. ORIGINAL REPORT ON FILE IN LAB CONTAINS ADDITIONAL TEST SITE INFORMATION. Serum or plasma ferritin hiral surement (mass/volume)Ordered By: Dr. Cotton on 05-13-2022 Ferritin [Mass/Vol] 175 ng/mL 8-252 [facility] Serum or plasma folate measu rement (mass/volume)Ordered By: Dr. Cotton on 05-13-2022 Folate [Mass/Vol] 47.40 ng/mL 3.1-55.4 [facility] Serum or plasma iron saturat ion measurement (mass fraction)Ordered By: Dr. Cotton on 05-13-2022 Iron saturation [Mass fraction] 24.8 % 15.0-55.0 [facility] Serum or plasma testosterone free measurement (mass/volume)Ordered By: Dr. Cotton on 05-13-2022 Testosterone Free [Mass/Vol] 0.10 ng/dL 0.10-0.85 [facility] Serum or plasma transthyreti n measurement (mass/volume)Ordered By: Dr. Cotton on 05-13-2022 Prealbumin [Mass/Vol] 18.0 mg/dL 20.0-40.0 [facility] Serum or plasma zinc measure ment (mass/volume)Ordered By: Dr. Cotton on 05-13-2022 Zinc [Mass/Vol] 110 ug/dL 44-115 [facility] Comment on above: Detection Limit = 5P erformed at: [facility] [id number] Director: Rex Burrows PhD, Phone: [phone] at: [facility] [id number] Director: Suresh Hernandez MD, Phone: [phone] Basophil percentageon 2021 Basophil percentage 25-50 SEEN /hpf 0-5 [facility] Work Phone: Bilirubin Test strip Ql (U)o n 01-26-2022 Bilirubin Ql (U) Negative Negative [facility] Work Phone: Ketones Test strip Ql (U)on 01-26-2022 Ketones Ql (U) Negative Negative [facility] Work Phone: Mucus LM Ql (Urine sed)on Mucus Ql (Urine sed) 0 SEEN /hpf [facility] Work Phone: Nitrite Test strip Ql (U)on 01-26-2022 Nitrite Ql (U) Negative Negative [facility] Work Phone: Protein Test strip Ql (U)on 01-26-2022 Protein Ql (U) Negative Negative [facility] Work Phone: Squamous epithelial cells de tection in urine sediment by light microscopyon 01-26-2022 Epithelial cells.squamous LM Ql (Urine sed) 0 SEEN /hpf 5-10 [facility] Work Phone: Urine blood detectionon 01-14 RBC Ql (U) Negative Negative [facility] Work Phone: RBC Ql (U) 0 SEEN /hpf 0-5 [facility] Work Phone: Urine clarityon 01-26-2022 Clarity (U) Sl. Cloudy Clear [facility] Work Phone: Urine color determinationon 01-26-2022 Color (U) Yellow Yellow [facility] Work Phone: Urine glucose detectionon Glucose Ql (U) Normal mg/dl Normal [facility] Work Phone: Urine leukocyte esterase det ection by dipstickon 01-26-2022 Leukocyte esterase Test strip Ql (U) 500 /ul Negative [facility] Work Phone: Urine pHon 01-26-2022 pH (U) 7.0 [pH] 5.0 - 8.0 [facility] Work Phone: Urine sediment bacteria coun t by microscopy (number/high power field)on 01-26-2022 Bacteria LM.HPF (Urine sed) [#/Area] 1 /[HPF] None Seen [facility] Work Phone: Urine specific gravity measu rementon 01-26-2022 Specific gravity (U) [Rel density] 1.010 1.002-1.03 0 [facility] Work Phone: Urobilinogen Auto test strip Ql (U)on 01-26-2022 Urobilinogen Ql (U) Normal mg/dl Normal [facility] Work Phone: [phone] Absolute lymphocyte counton 01-25-2022 Lymphocytes Auto (Unsp spec) [#/Vol] 1.47 10*3/uL 0.83-4.51 [facility] Work Phone: [phone] Basophil percentageon 2021 Basophils/100 WBC (Bld) 0.5 % 0-1 [facility] Work Phone: [phone] Bilirubin [Mass/Vol] 0.50 mg/dL 0.20-1.00 [facility] Work Phone: [phone] Comment on above: For patients on eltr ombopag therapy, use of Dimension [place] TBIL is not recommended. Chloride [Moles/Vol] 107 mmol/L 98-107 [facility] Work Phone: [phone] Eosinophils/100 WBC (Bld) 2.0 % 0-5 [facility] Work Phone: Glucose [Mass/Vol] 106 mg/dL 74-106 [facility] Work Phone: [phone] Comment on above: Fasting Glucose resu lt from 100 to 125 mg/dL suggests IMPAIRED HOMEOSTASIS per A.D.A. criteria. Neutrophils (Bld) [#/Vol] 5.2 10*3/uL 2.0-7.7 [facility] Work Phone: [phone] Neutrophils/100 WBC (Bld) 70.4 % 47-70 [facility] Work Phone: [phone] Potassium [Moles/Vol] 3.9 mmol/L 3.5-5.1 [facility] Work Phone: Protein [Mass/Vol] 6.7 g/dL 6.4-8.[address] [facility] Work Phone: Sodium [Moles/Vol] 144 mmol/L 136-[address] [facility] Work Phone: WBC (Bld) [#/Vol] 7.4 10*3/uL 4.4-11.0 [facility] Work Phone: Blood erythrocytes count (nu mber/volume)on 01-25-2022 RBC (Bld) [#/Vol] 5.00 10*6/uL 4.2-5.4 [facility]: Blood hemoglobin measurement (mass/volume)on 01-25-2022 Hemoglobin (Bld) [Mass/Vol] 15.0 g/dL 12.0-15.0 [facility] Work Phone: Blood lymphocytes/100 leukoc yteson 01-25-2022 Lymphocytes/100 WBC (Bld) 19.9 % 19-41 [facility] Work Phone: Blood monocytes/100 leukocyt eson 01-25-2022 Monocytes/100 WBC (Bld) 6.9 % 0-10 [facility] Work Phone: Blood platelet mean volumeon 01-25-2022 Platelet mean volume (Bld) [Entitic vol] 11.4 fL 6.2-12.0 [facility] Work Phone: Determination of erythrocyte mean corpuscular volume (MCV)on 01-25-2022 MCV (RBC) [Entitic vol] 93.2 fL 81-99 [facility] Work Phone: Erythrocyte sedimentation ra meagan 01-25-2022 ESR (Bld) [Velocity] 11 mm/h 0-30 [facility] Work Phone: Hematocrit Auto (Bld) [Volum e fraction]on 01-25-2022 Hematocrit (Bld) [Volume fraction] 46.6 % 37-47 [facility] Work Phone: [phone] Laboratory - Chemistry and C hemistry - challengeon 01-25-2022 ALP [Catalytic activity/Vol] 105 U/L 45-117 [facility] Work Phone: [phone] ALT [Catalytic activity/Vol] 23 U/L 13-56 [facility] Work Phone: CO2 [Moles/Vol] 27.0 mmol/L 21.0-32.0 [facility] Work Phone: [phone] Globulin (S) [Mass/Vol] 3.2 g/dL 2.2-4.2 [facility] Work Phone: [phone] Lipase [Catalytic activity/Vol] 113 U/L 73-393 [facility] Work Phone: [phone] Urea nitrogen/Creatinine [Mass ratio] 17.6 mg/mg 10-20 [facility] Work Phone: [phone] Laboratory - Hematology and Cell countson 01-25-2022 Erythrocyte distribution width (RBC) [Entitic vol] 45.3 fL 35.1-43.9 [facility] Work Phone: [phone] Erythrocyte distribution width (RBC) [Ratio] 13.3 % 11.6-14.6 [facility] Work Phone: [phone] Immature granulocytes/100 WBC (Bld) 0.300 % 0.0-0.9 [facility] Work Phone: [phone] Comment on above: IG% - Immature Granu locytes (promyelocytes, myelocytes and metamyelocytes) > 1% indicates that a LEFT SHIFT is Present. MCH (RBC) [Entitic mass] 30.0 pg 27.0-32.0 [facility] Work Phone: Nucleated RBC/100 WBC (Bld) [Ratio] 0 % 0-5 [facility] Work Phone: [phone] MCHC Auto (RBC) [Mass/Vol]on 01-25-2022 MCHC (RBC) [Mass/Vol] 32.2 g/dL 32-36 [facility] Work Phone: [phone] No Panel Informationon 01-25 Estimated GFR (MDRD) Amer 68 mL/min >60 [facility] Work Phone: Comment on above: GFR Calc Estimated GFR (MDRD) Non-Af Amer 56 mL/min >60 [facility] Work Phone: Comment on above: Non- GFR Calc Platelets bldon 01-25-2022 Platelets (Bld) [#/Vol] 253 10*3/uL 150-450 [facility] Work Phone: Serum or plasma C reactive p rotein measurement (mass/volume)on 01-25-2022 CRP [Mass/Vol] mg/L 0.0-3.0 [facility] Work Phone: Comment on above: C-Reactive Protein ( CRP) provides useful information for thediagnosis, therapy and monitoring of inflammatory processesand associated diseases. For the evaluation of Relative Riskfor Cardiovascular Disease, a High Sensitivity CRP (HSCRP)should be ordered. Serum or plasma albumin jared urement (mass/volume)on 01-25-2022 Albumin [Mass/Vol] 3.5 g/dL 3.2-5.0 [facility] Work Phone: Serum or plasma albumin/glob ulin mass ratioon 01-25-2022 Albumin/Globulin [Mass ratio] 1.1 {ratio} 0.9-2.4 [facility] Work Phone: Serum or plasma calcium jared urement (mass/volume)on 01-25-2022 Calcium [Mass/Vol] 9.5 mg/dL 8.5-10.1 [facility] Work Phone: Serum or plasma creatinine m easurement (mass/volume)on 01-25-2022 Creatinine [Mass/Vol] 1.02 mg/dL 0.55-1.02 [facility] Work Phone: Comment on above: The validity of the calculated GFR & GFRAA in patients over 70 years has not been determined. Clinical correlation is essential. Serum or plasma urea nitroge n measurement (mass/volume)on 01-25-2022 Urea nitrogen [Mass/Vol] 18 mg/dL 7-18 [facility] Work Phone: Thin prep Papanicolaou smear with manual screeningon 01-25-2022 Thin prep Papanicolaou smear with manual screening 15 U/L 15-37 [facility] Work Phone: Thin prep Papanicolaou smear with manual screening 10 5-15 [facility] Work Phone: Absolute lymphocyte counton 12-01-2021 Lymphocytes Auto (Unsp spec) [#/Vol] 1.60 10*3/uL 0.83-4.51 [facility] Work Phone: Basophil percentageon 2021 Basophils/100 WBC (Bld) 0.8 % 0-1 [facility] Work Phone: [phone] Bilirubin [Mass/Vol] 0.40 mg/dL 0.20-1.00 [facility] Work Phone: [phone] Comment on above: For patients on eltr ombopag therapy, use of Dimension [place] TBIL is not recommended. Chloride [Moles/Vol] 109 mmol/L 98-107 [facility] Work Phone: Eosinophils/100 WBC (Bld) 2.5 % 0-5 [facility] Work Phone: Glucose [Mass/Vol] 123 mg/dL 74-106 [facility] Work Phone: [phone] Comment on above: Fasting Glucose resu lt from 100 to 125 mg/dL suggests IMPAIRED HOMEOSTASIS per A.D.A. criteria. Neutrophils (Bld) [#/Vol] 5.0 10*3/uL 2.0-7.7 [facility] Work Phone: Neutrophils/100 WBC (Bld) 68.1 % 47-70 [facility] Work Phone: Potassium [Moles/Vol] 4.4 mmol/L 3.5-5.1 [facility] Work Phone: [phone] Protein [Mass/Vol] 6.9 g/dL 6.4-8.2 [facility] Work Phone: Sodium [Moles/Vol] 142 mmol/L 136-145 [facility] Work Phone: WBC (Bld) [#/Vol] 7.3 10*3/uL 4.4-11.0 [facility] Work Phone: Blood erythrocytes count (nu mber/volume)on 12-01-2021 RBC (Bld) [#/Vol] 5.15 10*6/uL 4.2-5.4 [facility] Work Phone: Blood hemoglobin measurement (mass/volume)on 12-01-2021 Hemoglobin (Bld) [Mass/Vol] 15.3 g/dL 12.0-15.0 [facility] Work Phone: Blood lymphocytes/100 leukoc yteson 12-01-2021 Lymphocytes/100 WBC (Bld) 21.8 % 19-41 [facility] Work Phone: Blood monocytes/100 leukocyt eson 12-01-2021 Monocytes/100 WBC (Bld) 6.4 % 0-10 [facility] Work Phone: Blood platelet mean volumeon 12-01-2021 Platelet mean volume (Bld) [Entitic vol] 11.6 fL 6.2-12.0 [facility] Work Phone: Determination of erythrocyte mean corpuscular volume (MCV)on 12-01-2021 MCV (RBC) [Entitic vol] 92.8 fL 81-99 [facility] Work Phone: Hematocrit Auto (Bld) [Volum e fraction]on 12-01-2021 Hematocrit (Bld) [Volume fraction] 47.8 % 37-47 [facility] Work Phone: Laboratory - Chemistry and C hemistry - challengeon 12-01-2021 ALP [Catalytic activity/Vol] 113 U/L 45-117 [facility] Work Phone: ALT [Catalytic activity/Vol] 19 U/L 13-56 [facility] Work Phone: CO2 [Moles/Vol] 28.0 mmol/L 21.0-32.0 [facility] Work Phone: Free T4 [Mass/Vol] 1.42 ng/dL 0.76-1.46 [facility] Work Phone: Globulin (S) [Mass/Vol] 3.1 g/dL 2.2-4.2 [facility] Work Phone: Urea nitrogen/Creatinine [Mass ratio] 21.4 mg/mg 10-20 [facility] Work Phone: Laboratory - Hematology and Cell countson 12-01-2021 Erythrocyte distribution width (RBC) [Entitic vol] 43.1 fL 35.1-43.9 [facility] Work Phone: Erythrocyte distribution width (RBC) [Ratio] 12.6 % 11.6-14.6 [facility] Work Phone: Immature granulocytes/100 WBC (Bld) 0.400 % 0.0-0.9 [facility] Work Phone: Comment on above: IG% - Immature Granu locytes (promyelocytes, myelocytes and metamyelocytes) > 1% indicates that a LEFT SHIFT is Present. MCH (RBC) [Entitic mass] 29.7 pg 27.0-32.0 [facility] Work Phone: Nucleated RBC/100 WBC (Bld) [Ratio] 0 % 0-5 [facility] Work Phone: MCHC Auto (RBC) [Mass/Vol]on 12-01-2021 MCHC (RBC) [Mass/Vol] 32.0 g/dL 32-36 [facility] Work Phone: No Panel Informationon 12-01 Estimated GFR (MDRD) Amer 67 mL/min >60 [facility] Work Phone: Comment on above: GFR Calc Estimated GFR (MDRD) Non-Af Amer 55 mL/min >60 [facility] Work Phone: Comment on above: Non- GFR Calc Thyroid Stimulating Hormone (TSH) 0.25 uIU/mL 0.358-3.74 [facility] Work Phone: Vitamin D 25-Hydroxy 43.6 ng/mL [facility] Work Phone: Comment on above: Vitamin D 25(OH) Sta tus Range Deficiency <20 ng/mL (50nmol/L) Insufficiency 20 - 30 ng/mL (50 - 75 nmol/L) Sufficiency 30 - 100 ng/mL (75 - 250 nmol/L) Toxicity >100 ng/mL (>250 nmol/L) Platelets bldon 12-01-2021 Platelets (Bld) [#/Vol] 256 10*3/uL 150-450 [facility] Work Phone: Serum or plasma albumin jared urement (mass/volume)on 12-01-2021 Albumin [Mass/Vol] 3.8 g/dL 3.2-5.0 [facility] Work Phone: Serum or plasma albumin/glob ulin mass ratioon 12-01-2021 Albumin/Globulin [Mass ratio] 1.2 {ratio} 0.9-2.4 [facility] Work Phone: Serum or plasma calcium jared urement (mass/volume)on 12-01-2021 Calcium [Mass/Vol] 9.5 mg/dL 8.5-10.1 [facility] Work Phone: Serum or plasma creatinine m easurement (mass/volume)on 12-01-2021 Creatinine [Mass/Vol] 1.03 mg/dL 0.55-1.02 [facility] Work Phone: Comment on above: The validity of the calculated GFR & GFRAA in patients over 70 years has not been determined. Clinical correlation is essential. Serum or plasma urea nitroge n measurement (mass/volume)on 12-01-2021 Urea nitrogen [Mass/Vol] 22 mg/dL 7-18 [facility] Work Phone: Thin prep Papanicolaou smear with manual screeningon 12-01-2021 Thin prep Papanicolaou smear with manual screening 16 U/L 15-37 [facility] Work Phone: Thin prep Papanicolaou smear with manual screening 5 5-15 [facility] Work Phone: Culture, urine Bacteria identified Cx Nom (U) Mixed Gram Pos & Gram Neg Org [facility] Work Phone: Vital Signs Date Time Vital Sign Value Performing Clinician [facility] 09-26-2024 09:58-0400 Body height 162.6 cm [facility] 09-26-2024 09:58-0400 Body mass index (BMI) [Ratio] 23 kg/m2 [facility] 09-26-2024 09:58-0400 Body weight 60.78 kg [facility] 07-24-2024 09:28-0400 Body height 162.8 cm Randa Mejía MD Work Phone: [facility] 07-24-2024 09:28-0400 Body mass index (BMI) [Ratio] 22.64 kg/m2 Randa Mejía MD Work Phone: [facility] 07-24-2024 09:28-0400 Body weight 60 kg Randa Mejía MD Work Phone: [facility] 07-24-2024 09:28-0400 Diastolic blood pressure 64 mm[Hg] Randa Mejía MD Work Phone: [facility] 07-24-2024 09:28-0400 Heart rate 68 /min Randa Mejía MD Work Phone: [facility] 07-24-2024 09:28-0400 Systolic blood pressure 124 mm[Hg] Randa Mejía MD Work Phone: [facility] 07-17-2024 12:49-0500 Body height 162.[address] Alyce Cantrell MD Work Phone: [facility] 07-17-2024 12:49-0500 Body mass index (BMI) [Ratio] 22.3 kg/m2 Dr. Alyce Cantrell MD Work Phone: [facility] 07-17-2024 12:49-0500 Body temperature 97.3 [degF] Dr. Alyce Cantrell MD Work Phone: [facility] 07-17-2024 12:49-0500 Body weight 58.[address] Alyce Cantrell MD Work Phone: [facility] 07-17-2024 12:49-0500 Diastolic blood pressure 70 mm[Hg] Dr. Alyce Cantrell MD Work Phone: [facility] 07-17-2024 12:49-0500 Heart rate 64 /min Dr. Alyce Cantrell MD Work Phone: [facility] 07-17-2024 12:49-0500 Respiratory rate 18 /min Dr. Alyce Cantrell MD Work Phone: [facility] 07-17-2024 12:49-0500 SaO2% (BldA) [Mass fraction] 97 % Dr. Alyce Cantrell MD Work Phone: [facility] 07-17-2024 12:49-0500 Systolic blood pressure 108 mm[Hg] Dr. Alyce Cantrell MD Work Phone: [facility] 07-06-2024 14:08-0500 Body height 162.6 cm Scarlett Cabrera MD Work Phone: [facility] 07-06-2024 14:08-0500 Body mass index (BMI) [Ratio] 22.93 kg/m2 Scarlett Cabrera MD Work Phone: [facility] 07-06-2024 14:08-0500 Body temperature 97.7 [degF] Scarlett Cabrera MD Work Phone: [facility] 07-06-2024 14:08-0500 Body weight 60.6 kg Scarlett Cabrera MD Work Phone: [facility] 07-06-2024 14:08-0500 Diastolic blood pressure 69 mm[Hg] Scarlett Cabrera MD Work Phone: [facility] 07-06-2024 14:08-0500 Heart rate 65 /min Scarlett Cabrera MD Work Phone: [facility] 07-06-2024 14:08-0500 Systolic blood pressure 109 mm[Hg] Scarlett Cabrera MD Work Phone: [facility] 05-30-2024 08:31-0500 Body mass index (BMI) [Ratio] 22.6 kg/m2 Dr. Alyce Cantrell MD Work Phone: [facility] 05-30-2024 08:31-0500 Body weight 59.[address] Alyce Cantrell MD Work Phone: [facility] 05-30-2024 08:31-0500 Diastolic blood pressure 67 mm[Hg] Dr. Alyce Cantrell MD Work Phone: [facility] 05-30-2024 08:31-0500 Heart rate 72 /min Dr. Alyce Cantrell MD Work Phone: [facility] 05-30-2024 08:31-0500 Respiratory rate 18 /min Dr. Alyce Cantrell MD Work Phone: [facility] 05-30-2024 08:31-0500 Systolic blood pressure 122 mm[Hg] Dr. Alyce Cantrell MD Work Phone: [facility] 04-23-2024 13:29-0500 Body temperature 98.4 [degF] Dr. Alyce Cantrlel MD Work Phone: [facility] 04-23-2024 13:29-0500 Diastolic blood pressure 76 mm[Hg] Dr. Alyce Cantrell MD Work Phone: [facility] 04-23-2024 13:29-0500 Heart rate 81 /min Dr. Alyce Cantrell MD Work Phone: [facility] 04-23-2024 13:29-0500 Respiratory rate 16 /min Dr. Alyce Cantrell MD Work Phone: [facility] 04-23-2024 13:29-0500 SaO2% (BldA) [Mass fraction] 99 % Dr. Alyce Cantrell MD Work Phone: [facility] 04-23-2024 13:29-0500 Systolic blood pressure 128 mm[Hg] Dr. Alyce Cantrell MD Work Phone: [facility] 04-23-2024 08:41-0500 Body mass index (BMI) [Ratio] 22.8 kg/m2 Dr. Alyce Cantrell MD Work Phone: [facility] 04-23-2024 08:41-0500 Body weight 60.[address] Alyce Cantrell MD Work Phone: [facility] 12-23-2023 11:32-0400 Body height 163 cm Scarlett Cabrera MD Work Phone: [facility] 12-23-2023 11:32-0400 Body mass index (BMI) [Ratio] 22.73 kg/m2 Scarlett Cabrera MD Work Phone: [facility] 12-23-2023 11:32-0400 Body temperature 97.81 [degF] Scarlett Cabrera MD Work Phone: [facility] 12-23-2023 11:32-0400 Body weight 60.4 kg Scarlett Cabrera MD Work Phone: [facility] 12-23-2023 11:32-0400 Diastolic blood pressure 64 mm[Hg] Scarlett Cabrera MD Work Phone: [facility] 12-23-2023 11:32-0400 Heart rate 79 /min Scarlett Cabrera MD Work Phone: [facility] 12-23-2023 11:32-0400 Systolic blood pressure 125 mm[Hg] Scarlett Cabrera MD Work Phone: [facility] 07-22-2023 10:30-0500 Body temperature 97 [degF] Dr. Alyce Cantrell Work Phone: [facility] 07-22-2023 10:30-0500 Diastolic blood pressure 60 mm[Hg] Dr. Alyce Cantrell Work Phone: [facility] 07-22-2023 10:30-0500 Heart rate 65 /min Dr. Alyce Cantrell Work Phone: [facility] 07-22-2023 10:30-0500 Respiratory rate 16 /min Dr. Alyce Cantrell Work Phone: [facility] 07-22-2023 10:30-0500 SaO2% (BldA) [Mass fraction] 95 % Dr. Alyce Cantrell Work Phone: [facility] 07-22-2023 10:30-0500 Systolic blood pressure 129 mm[Hg] Dr. Alyce Cantrell Work Phone: [facility] 07-22-2023 08:25-0500 Body height 162.[address] Alyce Cantrell Work Phone: [facility] 07-22-2023 08:25-0500 Body mass index (BMI) [Ratio] 22.8 kg/m2 Dr. Alyce Cantrell Work Phone: [facility] 07-22-2023 08:25-0500 Body weight 60.[address] Alyce Cantrell Work Phone: [facility] 06-15-2023 09:55-0500 Inhaled oxygen flow rate 0 L/min Dr. Alyce Cantrell Work Phone: [facility] 06-15-2023 09:55-0500 SaO2% (BldA) [Mass fraction] 91 % Dr. Alyce Cantrell Work Phone: [facility] 06-15-2023 09:42-0500 Body temperature 97.7 [degF] Dr. Alyce Cantrell Work Phone: [facility] 06-15-2023 09:42-0500 Diastolic blood pressure 61 mm[Hg] Dr. Alyce Cantrell Work Phone: [facility] 06-15-2023 09:42-0500 Heart rate 91 /min Dr. Alyce Cantrell Work Phone: [facility] 06-15-2023 09:42-0500 Respiratory rate 16 /min Dr. Alyce Cantrell Work Phone: [facility] 06-15-2023 09:42-0500 Systolic blood pressure 117 mm[Hg] Dr. Alyce Cantrell Work Phone: [facility] 06-15-2023 06:00-0500 Body mass index (BMI) [Ratio] 23.1 kg/m2 Dr. Alyce Cantrell Work Phone: [facility] 06-15-2023 06:00-0500 Body weight [address] Alyce Cantrell Work Phone: [facility] 06-13-2023 17:42-0500 Body height 162.[address] Alyce Cantrell Work Phone: [facility] 06-13-2023 17:28-0500 Diastolic blood pressure 59 mm[Hg] Dr. Alyce Cantrell Work Phone: [facility] 06-13-2023 17:28-0500 Heart rate 75 /min Dr. Alyce Cantrell Work Phone: [facility] 06-13-2023 17:28-0500 Respiratory rate 15 /min Dr. Alyce Cantrell Work Phone: [facility] 06-13-2023 17:28-0500 SaO2% (BldA) [Mass fraction] 91 % Dr. Alyce Cantrell Work Phone: [facility] 06-13-2023 17:28-0500 Systolic blood pressure 109 mm[Hg] Dr. Alyce Cantrell Work Phone: [facility] 06-13-2023 12:47-0500 Body height 162.[address] Alyce Cantrell Work Phone: [facility] 06-13-2023 12:47-0500 Body mass index (BMI) [Ratio] 23.2 kg/m2 Dr. Alyce Cantrell Work Phone: [facility] 06-13-2023 12:47-0500 Body temperature 98.2 [degF] Dr. Alyce Cantrlel Work Phone: [facility] 06-13-2023 12:47-0500 Body weight 61.[address] Alyce Cantrell Work Phone: [facility] 04-14-2023 13:40-0500 Body mass index (BMI) [Ratio] 23.1 kg/m2 Dr. Alyce Cantrell Work Phone: [facility] 04-14-2023 13:40-0500 Body weight 61.[address] Alyce Cantrell Work Phone: [facility] 04-14-2023 13:40-0500 Diastolic blood pressure 80 mm[Hg] Dr. Alyce Cantrell Work Phone: [facility] 04-14-2023 13:40-0500 Respiratory rate 16 /min Dr. Alyce Cantrell Work Phone: [facility] 04-14-2023 13:40-0500 Systolic blood pressure 135 mm[Hg] Dr. Alyce Cantrell Work Phone: [facility] 12-15-2021 13:20-0400 Body height 163.[address] Alyce Cantrell Work Phone: [facility] Work Phone: 12-10-2021 09:52-0400 Body mass index (BMI) [Ratio] 23.1 kg/m2 Dr. Alyce Cantrell Work Phone: [facility] Work Phone: 12-10-2021 09:52-0400 Body temperature 97.3 [degF] Dr. Alyce Cantrell Work Phone: [facility] Work Phone: 12-10-2021 09:52-0400 Body weight 62.[address] Alcye Cantrell Work Phone: [facility] Work Phone: 12-10-2021 09:52-0400 Diastolic blood pressure 80 mm[Hg] Dr. Alyce Cantrell Work Phone: [facility] Work Phone: 12-10-2021 09:52-0400 Heart rate 71 /min Dr. Alyce Cantrell Work Phone: [facility] Work Phone: 12-10-2021 09:52-0400 Respiratory rate 16 /min Dr. Alyce Cantrell Work Phone: [facility] Work Phone: 12-10-2021 09:52-0400 SaO2% (BldA) [Mass fraction] 96 % Dr. Alyce Cantrell Work Phone: [facility] Work Phone: 12-10-2021 09:52-0400 Systolic blood pressure 130 mm[Hg] Dr. Alyce Cantrell Work Phone: [facility] Work Phone: Encounters Encounter Date Encounter Type Care Provider Facility Start: 10-25-2024 End: 10-25-2024 Admission to same day surgery center Randa Mejía MD Work Phone: Endocrine Surgery Comment on above: Hyperparathyroidism (HCC) (Primary Dx) Start: 10-25-2024 End: 10-25-2024 Telemedicine consultation with patient Randa Mejía MD Work Phone: Endocrine Surgery Start: 10-25-2024 End: 10-25-2024 ambulatory ALYCE CANTRELL Facility:[facility] Start: 10-22-2024 End: 10-22-2024 ambulatory RANDA MEJÍA Facility:[facility] Start: 10-11-2024 End: 10-11-2024 Telephone encounter Randa Mejía MD Work Phone: Endocrine Surgery Comment on above: Patient Question (Ab dominal pain) Start: 10-05-2024 End: 10-06-2024 ambulatory RANDA MEJÍA Facility:[facility] Start: 09-26-2024 End: 09-26-2024 Admission to establishment [facility] Start: 09-26-2024 End: 09-26-2024 Anesthesia consultation [facility] Comment on above: Pre-op evaluation (P rimary Dx); Hypothyroidism, unspecified type; Hyperlipidemia, unspecified hyperlipidemia type; Hyperparathyroidism (HCC); History of stroke; Peripheral polyneuropathy; Tremor; Fibromyalgia; Chronic obstructive pulmonary disease, unspecified COPD type (HCC); PVC (premature ventricular contraction); Irritable bowel syndrome with constipation; Pernicious anemia; Colitis; History of kidney stones; Post-operative nausea and vomiting; [place] (hard of hearing) Start: 09-26-2024 End: 09-26-2024 Preprocedural examination done [facility] Work Phone: Start: 09-26-2024 End: 09-26-2024 ambulatory RANDA DENNY CHACHA MEJÍA Facility:[facility] Start: 09-26-2024 Encounter for other preprocedural examination RANDA MEJÍA [facility] Start: 2024 End: 2024 ambulatory Alyce Cantrell Facility:[facility] Start: 09-08-2024 End: 09-08-2024 ambulatory Alyce Cantrell Facility:[facility] Start: 09-03-2024 End: 09-03-[address] Alyce Cantrell MD Work Phone: [facility] Work Phone: Start: 09-03-2024 End: 09-03-[address] Alyce Cantrell MD -Laboratory, [place] Work Phone: Start: 09-03-2024 End: 09-03-2024 ambulatory Alyce Cantrell Facility:[facility] Start: 07-30-2024 ambulatory UNKNOWN PROVIDER Facili ty:[facility] Start: 07-30-2024 End: 07-30-2024 Subsequent hospital visit by physician Elysia Thyroid [facility] Work Phone: Molecular Imaging Comment on above: Hyperparathyroidism (HCC) [E21.3] Start: 07-30-2024 ambulatory UNKNOWN PROVIDER Facili ty:[facility] Start: 07-30-2024 End: 07-30-2024 Subsequent hospital visit by physician Elysia Injection [facility] Work Phone: Molecular Imaging Comment on above: Hyperparathyroidism (HCC) [E21.3] Start: 07-27-2024 End: 07-27-2024 Telephone encounter Randa Mejía MD Work Phone: Endocrine Surgery Comment on above: Received Outside Med ical Records (INDEXED EKG AND STRESS TEST/) Start: 07-25-2024 End: 07-25-2024 ambulatory RANDA MEJÍA Facility:[facility] Start: 07-24-2024 End: 07-24-2024 Patient encounter procedure Randa Mejía MD Work Phone: Endocrine Surgery Comment on above: Hyperparathyroidism ([facility]) Start: 07-24-2024 End: 07-24-2024 ambulatory RANDA MEJÍA Facility:[facility] Start: 07-20-2024 End: 07-20-2024 ambulatory Nancy Guadarrama PT [facility] Comment on above: Trochanteric bursiti s of left hip Start: 07-18-2024 End: 07-18-2024 ambulatory RANDA MEJÍA Facility:[facility] Start: 07-18-2024 End: 07-18-2024 Telephone encounter Randa Mejía MD Work Phone: Endocrine Surgery Comment on above: Consult (FACE SHEET) Start: 07-18-2024 End: 07-18-[address] Alyce Cantrell MD Work Phone: [facility] Work Phone: Start: 07-18-2024 End: 07-18-[address] Alyce Cantrell MD Work Phone: -Outpatient Bone Densitometry Work Phone: Start: 07-17-2024 End: 07-17-2024 Patient encounter procedure [facility] Work Phone: Start: 07-17-2024 End: 07-18-2024 ambulatory Alyce Cantrell Facility:[facility] Start: 07-09-2024 End: 07-09-2024 Telephone encounter Scarlett Cabrera MD Work Phone: Rheumatology Comment on above: Orders Start: 07-06-2024 End: 07-06-2024 ambulatory [facility] Facility:[facility] Start: 07-06-2024 End: 07-06-2024 Patient encounter procedure Scarlett Cabrera MD Work Phone: Rheumatology Comment on above: Positive RANDELL (antinu clear antibody) (Primary Dx); Hyperparathyroidism (HCC); Trochanteric bursitis of left hip; Malaise and fatigue; Cold intolerance; Small fiber neuropathy Start: 06-28-2024 End: 06-28-2024 ambulatory [facility] Facility:[facility] Start: 06-27-2024 End: 06-27-2024 ambulatory [facility] Facility:[facility] Start: 06-27-2024 End: 06-29-2024 Telephone encounter Scarlett Cabrera MD Work Phone: Rheumatology Start: 06-26-2024 End: 06-27-2024 ambulatory Scarlett Cabrera MD Work Phone: Rheumatology Comment on above: Lab Tests Start: 06-22-2024 End: 06-22-[address] Hossein Espino DO -Cat Scan, [facility] Work Phone: Start: 06-22-2024 End: 06-22-2024 ambulatory Hossein Espino Facility:[facility] Start: 06-05-2024 ambulatory Neftali Hodgse Facility:[facility] Start: 06-05-2024 Non-patient / Non-visit [facility]. Lynn NGO [facility] Start: 06-05-2024 Non-patient / Non-visit Dr. Lynn NGO -[facility] Work Phone: Start: 06-05-2024 ambulatory Alyce Cantrell Facility:[facility] Start: 06-05-2024 End: 06-05-[address] Neftali Hodges MD -[facility] Work Phone: Start: 06-05-2024 End: 06-05-2024 ambulatory Neftali Hodges Facility:[facility] Start: 05-30-2024 End: 05-30-[address] Neftali Hodges MD -[facility] Work Phone: Start: 05-30-2024 End: 05-30-2024 ambulatory Alyce Cantrell Facility:[facility] Start: 05-03-2024 End: 05-03-[address] Alyce Cantrell MD -Radiology, [place] Work Phone: Start: 05-03-2024 End: 05-03-2024 ambulatory Alyce Cantrell Facility:[facility] Start: 04-23-2024 End: 04-23-2024 Emergency department patient visit Dr. Pollo De La Torre MD -Emergency Department Work Phone: Start: 03-27-2024 End: 03-27-2024 ambulatory Alyce [place] Facility:[facility] Start: 01-10-2024 [facility] Facility:[facility] Start: 01-10-2024 End: 01-10-2024 [facility] Facility:[facility] Start: 01-02-2024 End: 01-02-2024 [facility] Facility:[facility] Start: 12-23-2023 End: 12-23-2023 Subsequent hospital visit by physician [facility] Radiology Comment on above: Pain in joint, multi ple sites [M25.50] Start: 12-23-2023 End: 12-23-2023 ambulatory DAVE Nicholson [place] Facility:[facility] Start: 12-23-2023 End: 12-23-2023 Patient encounter procedure Scarlett Cabrera MD Work Phone: Rheumatology Comment on above: Pain in joint, multi ple sites (Primary Dx); Small fiber neuropathy; DDD (degenerative disc disease), lumbar; Trochanteric bursitis of both hips Start: 09-22-2023 End: 09-22-2023 ambulatory Alyce [place] Facility:[facility] Start: 09-16-2023 Telephone encounter Ravindra foley DO Work Phone: Neurology Comment on above: Received Outside [facility] ([facility] ) Start: 09-12-2023 End: 09-12-2023 ambulatory Ravindra Hdez DO Work Phone: Neurology Comment on above: Small fiber neuropat hy (Primary Dx); MGUS (monoclonal gammopathy of unknown significance) Start: 09-12-2023 End: 09-12-2023 Telemedicine consultation with patient Ravindra Hdez DO Work Phone: Neurology Start: 07-22-2023 Non-patient / Non-visit Dr. Galileo Cantrell Work Phone: [facility] Start: 07-22-2023 End: 07-22-2023 Admission to same day surgery center Dr. Alyce Cantrell Work Phone: [facility]-End[facility] Work Phone: Start: 07-22-2023 End: 07-22-[address] Alyce Cantrell Work Phone: [facility] Work Phone: Start: 07-19-2023 End: 07-19-[address] Alyce Cantrell Work Phone: [facility] Work Phone: Start: 07-19-2023 End: 07-19-[address] Alyce Cantrell Work Phone: [facility] Work Phone: Start: 06-22-2023 End: 06-22-[address] Alyce Cantrell Work Phone: [facility] Work Phone: Start: 06-22-2023 End: 06-22-[address] Alyce Cantrell Work Phone: [facility] Work Phone: Start: 06-15-2023 Non-patient / Non-visit Dr. Galileo Cantrell Work Phone: [facility] Work Phone: Start: 06-14-2023 Non-patient / Non-visit Dr. Galileo Cantrell Work Phone: [facility] Work Phone: Start: 06-14-2023 Non-patient / Non-visit Dr. Galileo Cantrell Work Phone: [facility] Start: 06-13-2023 End: 06-15-2023 Evaluation and management of inpatient Dr. Alyce Cantrell Work Phone: [facility] Work Phone: Start: 05-02-2023 End: 05-02-[address] Alyce Cantrell Work Phone: [facility] Work Phone: Start: 04-22-2023 End: 04-22-[address] [facility] Work Phone: Start: 04-14-2023 End: 04-14-[address] Alyce Cantrell Work Phone: [facility] Work Phone: Start: 01-24-2023 Non-patient / Non-visit Dr. Galileo Cantrell Work Phone: [facility] Start: 01-24-2023 End: 01-24-[address] Alyce Cantrell Work Phone: [facility] Work Phone: Start: 01-24-2023 End: 01-24-[address] Alyce Cantrell Work Phone: [facility]Cardiovas[facility] Work Phone: Start: 01-20-2023 End: 01-20-[address] Alyce Cantrell Work Phone: [facility] Work Phone: Start: 01-12-2023 End: 01-12-2023 ambulatory [facility] Work Phone: Start: 01-12-2023 End: 01-12-2023 Patient encounter procedure [facility] Work Phone: Start: 12-07-2022 End: 12-07-2022 Patient encounter procedure [facility] Start: 06-19-2022 End: 06-19-2022 ambulatory [facility] Work Phone: Start: 06-19-2022 End: 06-19-2022 Patient encounter procedure [facility]Cat Scan, [facility] Start: 06-02-2022 End: 06-02-2022 Patient encounter procedure [facility]-Laboratory, Specimen Start: 06-01-2022 End: 06-01-2022 ambulatory [facility] Work Phone: Start: 06-01-2022 End: 06-01-2022 Patient encounter procedure [facility] Start: 05-13-2022 End: 05-13-2022 ambulatory [facility] Work Phone: Start: 05-13-2022 End: 05-13-2022 Patient encounter procedure [facility] Start: 01-26-2022 End: 01-26-[address] Alyce Cantrell Work Phone: [facility] Work Phone: Start: 01-26-2022 End: 01-26-[address] Alyce Cantrell Work Phone: [facility] Start: 01-25-2022 End: 01-25-[address] Alyce Cantrell Work Phone: [facility] Work Phone: Start: 01-25-2022 End: 01-25-[address] Alyce Cantrell Work Phone: [facility] Start: 12-15-2021 End: 12-15-[address] Alyce Cantrell Work Phone: [facility]-Outpatient Bone Densitometry Start: 12-10-2021 End: 12-10-[address] Alyce Cantrell Work Phone: [facility] [place] Start: 12-09-2021 End: 12-09-[address] Alyce Cantrell Work Phone: [facility]-Cat Scan, [facility] Start: 12-01-2021 End: 12-01-2021 Patient encounter procedure [facility]Laboratory, [place] Procedures Date Procedure Procedure Detail Performing Clinician Start: 07-30-2024 Parathyroid imaging w/tomographic spect & ct Randa Mejía MD Work Phone: Start: 07-18-2024 Dual energy X-ray absorptiometry Dr. Alyce Cantrell MD Work Phone: Start: 07-06-2024 Arthrocentesis aspir &/inj major jt/bursa w/o us Scarlett Cabrera MD Work Phone: Start: 06-22-[address] Alyce sanchez MD Work Phone: Start: 06-05-2024 Radionuclide imaging of perfusion of myocardium under exercise stress Dr. Alyce Cantrell MD Work Phone: Start: 05-30-2024 Evaluation of diagno stic study results Dr. Alyce Cantrell MD Work Phone: Start: 05-03-2024 X-ray of chest, PA a nd lateral views Dr. Alyce Cantrell MD Work Phone: Start: 04-23-2024 X-ray of chest, PA a nd lateral views Dr. Alyce Cantrell MD Work Phone: Start: 12-23-2023 Radex hand minimum 3 views Scarlett Cabrera MD Work Phone: Start: 07-22-[address] Alyce sanchez Work Phone: Start: 06-22-[address] Alyce sanchez Work Phone: Start: 06-13-2023 CT angiography of ch est with contrast Dr. Alyce Cantrell Work Phone: Start: 06-13-2023 Plain chest X-ray Dr. Yony Cantrell Work Phone: Start: 06-13-[address] Alyce Cantrell Work Phone: Start: 06-13-2023 SARS-CoV-2, Influenz a & RSV (PCR) Dr. Alyce Cantrell Work Phone: Start: 05-02-2023 Bacteria identified in Urine by Culture Dr. Alyce Cantrell Work Phone: Start: 05-02-[address] Alyce Cantrell Work Phone: Start: 04-22-2023 Bacteria identified in Urine by Culture Dr. Alyce Cantrell Work Phone: Start: 04-22-[address] Alyce Cantrell Work Phone: Start: 01-20-2023 MRI of brain without contrast Dr. Alyce Cantrell Work Phone: Start: 06-19-2022 CT of chest Start: 01-25-2022 Diagnostic radiograp hy of abdomen Dr. Alyce Cantrell Work Phone: Start: 12-15-2021 Dual energy X-ray absorptiometry Dr. Alyce Cantrell Work Phone: Start: 12-15-2021 Screening mammography Melissa Cantrell Work Phone: Start: 12-09-[address] CT of lumbar spine Dr. Alyce Cantrell Work Phone: H/O: hysterectomy History of hysterectomy History of appendectomy History of append ectomy History of cataract extraction H/O cataract removal with insertion of prosthetic lens Comment on above: JOSÉ MIGUEL History of cholecystectomy Hx laparoscopic cholecystectomy Comment on above: [address] Alyce Cantrell Work Phone: Plan of Treatment Date Care Activity Detail Author Start: 09-25-2029 Urine microalbumin profile DTaP,Tdap,Td Vaccine (2 - Td or Tdap) [facility] Start: 07-26-2027 Diabetes Screening Diabetes Screening [facility] Start: 06-27-2027 Diabetes Screening Diabetes Screening [facility] Start: 05-17-2026 Diabetes Screening Diabetes Screening [facility] Start: 01-11-2025 End: 01-11-2025 Patient encounter procedure 01/11/2025 10:40 AM EDT Office Visit Rheumatology [address] [address] Scarlett Cabrera MD [address] [place] [address] Polyarthralgia f/u Rheumatology Comment on above: Polyarthralgia f/u Start: 10-25-2024 End: 10-25-2024 Admission to same day surgery center 10/25/2024 3:40 PM EDT [facility] Endocrine Surgery [address] [place] [id number] Randa Mejía MD [address] [place] [address] post op Endocrine Surgery Comment on above: post op Start: 10-05-2024 End: 10-05-2024 Admission to same day surgery center 10/05/2024 9:00 AM EDT - 10/05/2024 10:45 AM EDT Surgery [facility] [address] [place] [address] Randa Mejía MD [address] [facility] [place] [address] PARATHYROIDECTOMY [facility] Comment on above: PARATHYROIDECTOMY Start: 10-05-2024 End: 10-05-2024 Parathyroidectomy/explorat ion parathyroids PARATHYROIDECTOMY Hyperparathyroidism (HCC) 10/05/2024 9:00 AM EDT MM OR Start: 10-05-2024 Subsequent hospital visit by physician 10/05/2024 9:00 AM EDT Hospital Encounter [facility] [address] [place] [id number] Randa Mejía MD [address] [place] [address] Hyperparathyroidism (HCC) [E21.3] [facility] Comment on above: Hyperparathyroidism (HCC) [E21.3] Start: 09-26-2024 End: 09-26-2024 Admission to same day surgery center 09/26/2024 9:00 AM EDT - 09/26/2024 10:30 AM EDT Surgery [facility] [address] [place] [address] Randa Mejía MD [address] [place] [address] PARATHYROIDECTOMY [facility] Comment on above: PARATHYROIDECTOMY Start: 09-26-2024 End: 09-26-2024 Parathyroidectomy/explorat ion parathyroids PARATHYROIDECTOMY Hyperparathyroidism (HCC) 09/26/2024 9:00 AM EDT MM OR Start: 09-26-2024 Subsequent hospital visit by physician 09/26/2024 9:00 AM EDT Hospital Encounter [facility] [address] [place] [address] Randa Mejía MD [address] [place] [address] Hyperparathyroidism (HCC) [E21.3] [facility] Comment on above: Hyperparathyroidism (HCC) [E21.3] Start: 09-03-2024 Procedure [facility] Start: 08-24-2024 Covid-19 Vaccine ( season) Covid-19 Vaccine () [facility] Start: 07-30-2024 End: 07-30-2024 Patient encounter procedure [facility] Comment on above: NM PARATHYROID W SPECT/CT Start: 07-30-2024 End: 07-30-2024 Patient encounter procedure 07/30/2024 8:45 AM EDT Appointment Molecular Imaging [facility] [place] [address] NM PARATHYROID W SPECT/CT [facility] Comment on above: NM PARATHYROID W SPECT/CT Start: 07-25-2024 End: 07-25-2024 ambulatory 07/25/2024 7:45 AM EDT Results Only [facility] [address] [place] [address] [facility] [place] [facility] Start: 07-24-2024 End: 07-24-2024 Patient encounter procedure Endocrine Surgery Comment on above: Hyperparathyroidism (HCC) [E21.3] INTAKE COMPLETED--Hy perparathyroidism (HCC) [E21.3] Start: 07-20-2024 End: 07-20-2024 ambulatory 07/20/2024 1:15 PM EST OT/PT/Speech Visit [facility] [address] [place] [address] O'Nancy Rain, PT Trochanteric bursitis of left hip [M70.62] [facility] Comment on above: Trochanteric bursitis of left hip [M70.6 2] Start: 07-18-2024 End: 10-17-2024 25-hydroxyvitamin D3 [Mass/volume] in Serum or Plasma [facility] Comment on above: Expected: 07/18/2024 (Approximate), Expi res: 10/17/2024 Start: 07-18-2024 End: 10-17-2024 Calcitriol [Mass/volume] in Serum or Plasma [facility] Comment on above: Expected: 07/18/2024 (Approximate), Expi res: 10/17/2024 Start: 07-18-2024 End: 10-17-2024 Calcium [Mass/volume] in Serum or Plasma [facility] [employer] Work Phone: Comment on above: Expected: 07/18/2024 (Approximate), Expi res: 10/17/2024 Start: 07-18-2024 End: 10-17-2024 Parathyrin.intact [Mass/volume] in Serum or Plasma [facility] Comment on above: Expected: 07/18/2024 (Approximate), Expi res: 10/17/2024 Start: 07-18-2024 End: 10-17-2024 Phosphate [Mass/volume] in Serum or Plasma [facility] Comment on above: Expected: 07/18/2024 (Approximate), Expi res: 10/17/2024 Start: 07-06-2024 End: 07-06-2024 Patient encounter procedure 07/06/2024 2:20 PM EST Office Visit Rheumatology [address] [address] Scarlett Cabrera MD [address] [place] [address] Polyarthralgia f/u Rheumatology Comment on above: Polyarthralgia f/u Start: 06-27-2024 End: 09-26-2024 RANDELL BY IFA SCREEN [facility] Work Phone: Comment on above: Expected: 06/27/2024, Expires: Start: 06-27-2024 End: 09-26-2024 Complement C3 [Mass/volume] in Serum or Plasma [facility] Comment on above: Expected: 06/27/2024, Expires: Start: 06-27-2024 End: 09-26-2024 Complement C4 [Mass/volume] in Serum or Plasma [facility] Comment on above: Expected: 06/27/2024, Expires: Start: 06-27-2024 End: 09-26-2024 Parathyrin.intact [Mass/volume] in Serum or Plasma PTH INTACT Lab Routine Hypercalcemia Expected: 06/27/2024, Expires: 09/26/[address] [facility] Comment on above: Expected: 06/27/2024, Expires: Start: 06-27-2024 End: 09-26-2024 Protein/Creatinine [Mass Ratio] in Urine PROTEIN / CREATININE RATIO Lab Routine Positive RANDELL (antinuclear antibody) Expected: 06/27/2024, Expires: 09/26/[address] [facility] Comment on above: Expected: 06/27/2024, Expires: Start: 06-27-2024 End: 09-26-2024 THYROGLOBULIN ANTIBODY [facility] Comment on above: Expected: 06/27/2024, Expires: Start: 06-27-2024 End: 09-26-2024 THYROID PEROXIDASE ANTIBODY [facility] Comment on above: Expected: 06/27/2024, Expires: Start: 06-27-2024 End: 09-26-2024 Urinalysis complete panel - Urine URINALYSIS, WITH MICROSCOPIC Lab Routine Positive RANDELL (antinuclear antibody) Expected: 06/27/2024, Expires: 09/26/[address] [facility] Comment on above: Expected: 06/27/2024, Expires: Start: 05-16-2024 Advance Directive Discussion Advance Directive Discussion [facility] Start: 04-23-2024 [facility] Start: 04-23-2024 [facility] Start: 01-15-2024 Influenza vaccination Influenza Vaccine (#1) [facility] Start: 12-23-2023 End: 03-23-2024 RANDELL BY IFA SCREEN [facility] Work Phone: Comment on above: Expected: 12/23/2023, Expires: Start: 12-23-2023 End: 03-23-2024 Cyclic citrullinated peptide IgG Ab [Units/volume] in Serum or Plasma [facility] Comment on above: Expected: 12/23/2023, Expires: Start: 12-23-2023 End: 03-23-2024 Extractable nuclear Ab panel - Serum [facility] Comment on above: Expected: 12/23/2023, Expires: 4 Start: 09-12-2023 End: 12-12-2023 MONOCLONAL PROT UR W/INTERP MONOCLONAL PROT UR W/INTERP Lab Routine Small fiber neuropathy MGUS (monoclonal gammopathy of unknown significance) Expected: 09/12/2023, Expires: 12/12/[address] [facility] Comment on above: Expected: 09/12/2023, Expires: Start: 09-12-2023 End: 12-12-2023 MONOCLONAL PROTEIN, SERUM (BLOOD) MONOCLONAL PROTEIN, SERUM (BLOOD) Lab Routine Small fiber neuropathy MGUS (monoclonal gammopathy of unknown significance) Expected: 09/12/2023, Expires: 12/12/2023 [facility] Work Phone: Comment on above: Expected: 09/12/2023, Expires: Start: 07-22-2023 Patient discharge [facility] Start: 07-11-2023 Covid-19 Vaccine () Covid-19 Vaccine () [facility] Start: 06-15-2023 Patient discharge [facility] Start: 06-13-2023 Assessment of risk of venous thromboembolism [facility] Start: 06-13-2023 Insertion of catheter into peripheral vein [facility] Start: 06-13-2023 Measuring intake and output [facility] Start: 06-13-2023 Oxygen therapy [facility] Start: 06-13-2023 Providing care according to standard [facility] Start: 06-13-2023 Provision of activity privileges [facility] Start: 06-13-2023 Referral to service [facility] Start: 06-13-2023 [facility] Start: 06-13-2023 Following clinical pathway protocol [facility] Start: 06-13-2023 Respiratory pathogens DNA and RNA panel - Respiratory specimen by ELEUTERIO with probe detection [facility] Start: 06-13-2023 Admission procedure [facility] Start: 06-13-2023 Verification routine [facility] Start: 06-13-2023 Hospital admission, emergency, from emergency room, medical nature [facility] Start: 06-13-2023 [facility] Start: 06-13-2023 [facility] Start: 06-13-2023 Consultation [facility] Start: 06-13-2023 Inhalation therapy procedure [facility] Start: 05-16-2023 Advance Directive Discussion Advance Directive Discussion [facility] Start: 12-15-2021 Dual energy X-ray absorptiometry Dexa Bone Density Study [facility] Work Phone: Start: 11-24-2016 Pneumococcal Vaccine: 50+ (2 of 2 - PPSV23) Pneumococcal Vaccine: 50+ (2 of 2 - PPSV23) [facility] Start: 11-24-2016 Pneumococcal Vaccine: 65+ (2 of 2 - PPSV23 or PCV20) Pneumococcal Vaccine: 65+ (2 of 2 - PPSV23 or PCV20) [facility] Start: 01-20-2016 Pneumococcal Vaccine: 50+ (2 of 2 - PPSV23) Pneumococcal Vaccine: 50+ (2 of 2 - PPSV23) [facility] Start: 2010 Screening for osteoporosis Bone Density Screening [facility] Start: 08-14-2010 Medicare Annual Wellness Visit Medicare Annual Wellness Visit [facility] Start: 09-14-1963 Annual PCP Team Chronic Disease Visit Annual PCP Team Chronic Disease Visit [facility] Start: 09-14-1963 Anxiety Screening Anxiety Screening [facility] Start: 09-14-1963 Depression Screening Depression Screening [facility] Start: 09-14-1963 Hepatitis C screening Hepatitis C Screening [facility] End: 08-05-2025 BD DXA TRABECULAR BONE SCORE (TBS) BD DXA TRABECULAR BONE SCORE (TBS) Radiology Routine Hyperparathyroidism (HCC) 1 Occurrences starting 07/06/2024 until 08/05/[address] [facility] Comment on above: 1 Occurrences starting 07/06/2024 until 08/05/2025 CALCIUM, 24 HR URINE CALCIUM, 24 HR URINE Lab Routine Hyperparathyroidism (HCC) Ordered: 07/06/2024 [facility] Work Phone: Comment on above: Ordered: 07/06/2024 Colonoscopy [facility] CT Chest [facility] Work Phone: CT Chest [facility] End: 08-05-2025 DXA Skeletal system.axial Views for bone density DXA-AXIAL SKELETON Radiology Routine Hyperparathyroidism (HCC) 1 Occurrences starting 07/06/2024 until 08/05/[address] [facility] Comment on above: 1 Occurrences starting 07/06/2024 until 08/05/2025 End: 08-05-2025 DXA-FOREARM SKELETON DXA-FOREARM SKELETON Radiology Routine Hyperparathyroidism (HCC) 1 Occurrences starting 07/06/2024 until 08/05/[address] [facility] Comment on above: 1 Occurrences starting 07/06/2024 until 08/05/2025 Patient Education Premature Vent ricular Contract Tx [facility] Work Phone: Patient referral [facility] Work Phone: End: 08-17-2025 SPECT+CT Parathyroid gland NM PARATHYROID W SPECT/CT Radiology Routine Hyperparathyroidism (HCC) 1 Occurrences starting 07/18/2024 until 08/17/[address] [facility] Comment on above: 1 Occurrences starting 07/18/2024 until 08/17/2025 Immunizations Immunization Date Immunization Notes Care Provider Martin mejia 02-15-2024 Seasonal trivalent influenza vaccine, adjuvanted, preservative free Scarlett Cabrera MD Work Phone: [facility] 03-10-2023 unknown vaccine or immune globulin Scarlett Cabrera MD Work Phone: [facility] 02-22-2023 influenza (aIIV4) vaccine, age 65+ yr, quadrivalent, PF (FLUAD QUAD) Scarlett Cabrera MD Work Phone: [facility] 02-22-2023 influenza virus vacc ine, unspecified formulation Scarlett Cabrera MD Work Phone: [facility] 01-23-2023 respiratory syncytia l virus (RSV) vaccine, adjuvanted (AREXVY) Scarlett Cabrera MD Work Phone: [facility] 01-26-2022 influenza (aIIV4) vaccine, age 65+ yr, quadrivalent, PF (FLUAD QUAD) Scarlett Cabrera MD Work Phone: [facility] 02-13-2021 influenza (aIIV4) vaccine, age 65+ yr, quadrivalent, PF (FLUAD QUAD) Scarlett Cabrera MD Work Phone: [facility] 08-07-2020 COVID-19 original vaccine, age 12+ yr, monovalent (PFIZER-BIONTECH - PURPLE TOP) Ravindra Hdez DO Work Phone: [facility] Work Phone: 07-17-2020 COVID-19 original vaccine, age 12+ yr, monovalent (PFIZER-BIONTECH - PURPLE TOP) Ravindra Hdez DO Work Phone: [facility] Work Phone: 09-26-2019 tetanus toxoid, redu cj diphtheria toxoid, and acellular pertussis vaccine, adsorbed Scarlett Cabrera MD Work Phone: [facility] 02-12-2019 Seasonal trivalent influenza vaccine, adjuvanted, preservative free Scarlett Cabrera MD Work Phone: [facility] 05-23-2018 zoster vaccine recombinant Scarlett Cabrera MD Work Phone: [facility] 02-13-2018 zoster vaccine recombinant Scarlett Cabrera MD Work Phone: [facility] 02-12-2018 Seasonal trivalent influenza vaccine, adjuvanted, preservative free Scarlett Cabrera MD Work Phone: [facility] 02-18-2017 Seasonal trivalent influenza vaccine, adjuvanted, preservative free Scarlett Cabrera MD Work Phone: [facility] 02-23-2016 influenza, seasonal, injectable Scarlett Cabrera MD Work Phone: [facility] 11-25-2015 pneumococcal conjuga te vaccine, 13 valent Ravindra Hdez DO Work Phone: [facility] 11-14-2015 pneumococcal conjuga te vaccine, 13 valent Scarlett Cabrera MD Work Phone: [facility] 08-06-2015 typhoid capsular polysaccharide vaccine Scarlett Cabrera MD Work Phone: [facility] 02-12-2015 influenza, seasonal, injectable Scarlett Cabrera MD Work Phone: [facility] 02-13-2014 influenza, seasonal, injectable Scarlett Cabrera MD Work Phone: [facility] 12-25-2012 hepatitis A and hepatitis B vaccine Scarlett Cabrera MD Work Phone: [facility] 07-19-2012 hepatitis A and hepatitis B vaccine Scarlett Cabrera MD Work Phone: [facility] 07-19-2012 yellow fever vaccine Scarlett cherry MD Work Phone: [facility] 06-21-2012 hepatitis A and hepatitis B vaccine Scarlett Cabrera MD Work Phone: [facility] 06-21-2012 typhoid capsular polysaccharide vaccine Scarlett Cabrera MD Work Phone: [facility] 05-05-2009 novel influenza-H1N1 -09, preservative-free, injectable Scarlett Cabrera MD Work Phone: [facility] Payers Date Payer Category Payer Self-pay [id number] 2021 Private Health Insurance [id number] 2021 Private Health Insurance [id number] 2010 Medicare [id number] 2010 Medicare [id number] Private Health Insurance [id number] Unknown [id number] 2.16.8 [id number] Unknown [id number] 2.16.8 [id number] Unknown [id number] 2.16.8 [id number] Unknown [id number] 2.16.8 [id number] Unknown [id number] 2.16.8 [id number] Unknown [id number] 2.16.8 [id number] Unknown [id number] 2.16.8 [id number] Unknown [id number] 2.16.8 [id number] Unknown [id number] 2.16.8 [id number] Unknown [id number] 2.16.8 [id number] Unknown [id number] 2.16.8 [id number] Unknown [id number] 2.16.8 [id number] Unknown [id number] 2.16.8 [id number] Unknown [id number] 2.16.8 [id number] Unknown [id number] 2.16.8 [id number] Unknown [id number] 2.16.8 [id number] Unknown [id number] Unknown [id number] Unknown [id number] Social History Date Type Detail Facility Start: 06-16-2021 End: 07-20-2023 Tobacco smoking status [facility] Unknown if ever smoked [facility] Start: 1945 Sex Assigned At Female [facility] Start: 10-06-2017 End: 07-06-2024 Tobacco smoking status NHIS Ex-smoker [facility] Start: 1965 End: 05-19-2015 History of tobacco use Current smoker [facility] Start: 1965 End: 05-19-2015 History of tobacco use Cigarette Smoker [facility] Start: 10-06-2017 End: 12-23-2023 Cigarettes smoked current (pack per day) - Reported [address] [facility] Start: 10-06-2017 End: 07-06-2024 Tobacco use and exposure Smokeless tobacco non-user [facility] Start: 03-17-2021 End: 09-26-2024 Alcohol intake Current non-drinker of alcohol (finding) [facility] Start: 03-17-2021 End: 12-23-2023 Tobacco use panel [facility] Adult Depression Screening Assessment [address] [facility] Start: 1945 Sex Assigned At Not on file [facility] Start: 07-08-2020 Gender identity Identifies as female gender (finding) [facility] Start: 07-30-2024 End: 09-06-2024 Sex Female (finding) [facility] Goals Date Patient Goal Desired Activity /State Functional Status Date Assessment Result Facility 10-06-2024 Are you deaf, or do you have serious difficulty hearing No 10/06/2024 9:48 AM Yessenia Mac, AUDRA No [facility] 10-06-2024 Are you blind, or do you have serious difficulty seeing, even when wearing glasses No 10/06/2024 9:48 AM Yessenia Mac, AUDRA No [facility] 10-06-2024 Do you have serious difficulty walking or climbing stairs No 10/06/2024 9:48 AM Yessenia Mac, AUDRA No [facility] 10-06-2024 Do you have difficul ty dressing or bathing No 10/06/2024 9:48 AM Yessenia Mac, AUDRA No [facility] 10-06-2024 Because of a physica l, mental, or emotional condition, do you have difficulty doing errands alone such as visiting a physician's office or shopping No 10/06/2024 9:48 AM Yessenia Mac, AUDRA No [facility] 06-15-2023 Functional status Activity Abili ty Independent [facility] Work Phone: 06-14-2023 Functional status Ambulates [facility] Work Phone: 08-28-2014 Are you deaf, or do you have serious difficulty hearing Yes [facility] 08-28-2014 Are you blind, or do you have serious difficulty seeing, even when wearing glasses No [facility] 08-28-2014 Do you have serious difficulty walking or climbing stairs No [facility] 08-28-2014 Do you have difficul ty dressing or bathing No [facility] 08-28-2014 Because of a physica l, mental, or emotional condition, do you have difficulty doing errands alone such as visiting a physician's office or shopping No [facility] Mental Status Date Assessment Result Facility 10-06-2024 Because of a physica l, mental, or emotional condition, do you have serious difficulty concentrating, remembering, or making decisions No 10/06/2024 9:48 AM EDT Yessenia Jorgensen RN No [facility] 07-22-2023 Cognitive function Voice/Name [facility] Work Phone: 06-15-2023 Cognitive function Voice/Name [facility] Work Phone: 08-28-2014 Because of a physica l, mental, or emotional condition, do you have serious difficulty concentrating, remembering, or making decisions No [facility] Clinical Notes 06-13-2023 to 10-25-2024 Randa Mejía MD - 10/25/2024 9:01 AM EDTTelephone Encounter - Jayme Naik RN - 10/11/2024 1:23 PM EDTTelephone Encounter - Jayme Naik RN - 10/11/2024 1:23 PM EDTPatient Instructions Note Date & Type Note Facility 10-25-2024 Note HNO ID: [id number] Author: RANDA MEJÍA MD Service: ? Author Type: Physician Type: Progress Notes Filed: 10/25/2024 10:52 Note Text: [facility] Endocrinology and Metabolism [place] Department of Endocrine Surgery Randa Mejía M.D. [address] [place] [address] Ms. Cherie Jimenez's postoperative visit was conducted via telephone call. She underwent a parathyroid exploration with excision of the left upper and lower parathyroid glands on 10/05/24. On the morning following surgery, her serum calcium measured 9.7 with a corresponding PTH of 32. She has been maintained on 1.2 grams of oral calcium daily. She denies any hypocalcemic symptoms. Latest Ref Rng 10/22/2024 Calcium 8.5 - 10.2 mg/dL 9.7 PTH, Intact 15 - 65 pg/mL 63 As per the patient, her transverse cervical incision has healed quite well without evidence of infection or seroma. Her voice is normal. Ms. Jimenez has done well since her surgery. I have given her a requisition to have her calcium and PTH checked in six months along with vitamin D levels. I appreciate being involved in the care of your patient, and please feel free to contact me should you have any questions or concerns. RANDA MEJÍA M.D. CC: Scarlett Cabrera M.D. Alyce Cantrell M.D. [facility] 10-25-2024 History of Present illness Narrative [facility] Endocrinology and Metabolism [place] Department of Endocrine Surgery Randa Mejía M.D. [address] [place] [address] Ms. Cherie Jimenez's postoperative visit was conducted via telephone call. She underwent a parathyroid exploration with excision of the left upper and lower parathyroid glands on 10/05/24. On the morning following surgery, her serum calcium measured 9.7 with a corresponding PTH of 32. She has been maintained on 1.2 grams of oral calcium daily. She denies any hypocalcemic symptoms. Latest Ref Rng 10/22/2024 Calcium 8.5 - 10.2 mg/dL 9.7 PTH, Intact 15 - 65 pg/mL 63 As per the patient, her transverse cervical incision has healed quite well without evidence of infection or seroma. Her voice is normal. Ms. Jimenez has done well since her surgery. I have given her a requisition to have her calcium and PTH checked in six months along with vitamin D levels. I appreciate being involved in the care of your patient, and please feel free to contact me should you have any questions or concerns. RANDA MEJÍA M.D. CC: Scarlett Cabrera M.D. Alyce Cantrell M.D. documented in this encounter [facility] 10-11-2024 Telephone encounter Note Patient had Parathyroid exploration with excision of the left upper and left lower parathyroid glands, selective venous catheterization for parathyroid hormone measurement, and intraoperative neck ultrasound with Dr. Mejía on 10/05/24. She called to let Dr. Mejía know that she has been having abdominal pain. She stated that she has a h/o IBS. Her abdominal pain is around 6, her stool is soft, but she has no diarrhea. She is also nauseated and vomited once. Denies tingling sensations. Incision is dry, but still bruised. Patient was instructed to not take any calcium supplements today, and if she is feeling better tomorrow, to take it once a day until the post-op call. Also encouraged patient to stay hydrated. She has a prescription dicyclomine for cramps that she can take to relieve her abdominal pain. Reminded of post-op follow-up and instruction given to have labs checked prior to the appointment. Pt was thankful for the call. Jayme Naik RN [facility] 10-11-2024 Miscellaneous Notes Patient had Parathyroid exploration with excision of the left upper and left lower parathyroid glands, selective venous catheterization for parathyroid hormone measurement, and intraoperative neck ultrasound with Dr. Mejía on 10/05/24. She called to let Dr. Mejía know that she has been having abdominal pain. She stated that she has a h/o IBS. Her abdominal pain is around 6, her stool is soft, but she has no diarrhea. She is also nauseated and vomited once. Denies tingling sensations. Incision is dry, but still bruised. Patient was instructed to not take any calcium supplements today, and if she is feeling better tomorrow, to take it once a day until the post-op call. Also encouraged patient to stay hydrated. She has a prescription dicyclomine for cramps that she can take to relieve her abdominal pain. Reminded of post-op follow-up and instruction given to have labs checked prior to the appointment. Pt was thankful for the call. Jayme Naik RN documented in this encounter [facility] 10-06-2024 Note HNO ID: [id number] Author: LAVONNE WALSH MD Service: Endocrine Surgery Author Type: Physician Type: Progress Notes Filed: 10/06/2024 08:34 Note Text: ENDOCRINE SURGERY INPATIENT PROGRESS NOTE Name: Cherie Jimenez Date: October 06, 2024 Patient is POD# 1 s/p parathyroidectomy for primary hyperparathyroidism. Glands removed: NORIS, MAXIMINO S: No acute events overnight. Recovering appropriately. Has mild soreness around the neck but well-controlled. Otherwise, neck is soft without significant swelling, voice is normal, and patient denies dysphagia or paresthesias. O: PHYSICAL EXAM: BP 117/57 Pulse 61 Temp 37.2 ?C (99 ?F) (Oral) Resp 18 Ht 162.6 cm (5' 4) Wt 60.3 kg (133 lb) SpO2 92% BMI 22.83 kg/m? General Appearance: In no acute distress. Well appearing. Neuro: Alert and oriented x3. Neck: soft, incision clean/dry/intact, no evidence of deep neck hematoma Abdomen: Soft. Non-distended. Non-tender. No guarding or rebound. Extremities: Warm and well perfused. Intake/Output Summary (Last 24 hours) at 10/06/2024 0834 Last data filed at 10/05/2024 0926 Gross per 24 hour Intake 700 ml Output -- Net 700 ml AM Labs: Ca 9.7 PTH 32 ASSESSMENT: Cherie Jimenez is POD1 s/p parathyroidectomy for primary hyperparathyroidism. Recovering appropriately. PLAN: - Regular diet - No SQH - SCDs - Multimodal pain regimen, minimize narcotics - Continue Ca-D3 500mg-200IU TID; Ca carbonate (TUMS) 500mg prn - Continue home medications as appropriate - Discharge this morning Discussed w/ Dr. Mejía, Endocrine Surgery Attending Lavonne Walsh MD [phone] Fellow / Clinical Associate, Endocrine Surgery [facility] 10-05-2024 Note HNO ID: [id number] Author: SHEILA GODINEZ MD Service: General Surgery Author Type: Resident Type: Progress Notes Filed: 10/05/2024 14:02 Note Text: ENDOCRINE SURGERY POST-OP CHECK Name: Cherie Jimenez Date: October 05, 2024 Patient is POD #0 s/p parathyroidectomy. Gland(s) removed: NORIS AND MAXIMINO S: Evaluated patient at bedside for post-op check, and the patient is recovering appropriately. Otherwise, neck is soft without significant swelling, voice is normal, and patient denies dysphagia or paresthesias. O: PHYSICAL EXAM: BP 149/73 Pulse 70 Temp 36.4 ?C (97.5 ?F) (Axillary) Resp 16 Ht 162.6 cm (5' 4) Wt 60.3 kg (133 lb) SpO2 94% BMI 22.83 kg/m? General Appearance: In no acute distress. Well appearing. Neuro: Alert and oriented x3. Neck: soft, incision clean/dry/intact, no evidence of deep neck hematoma Abdomen: Soft. Non-distended. Non-tender. No guarding or rebound. Extremities: Warm and well perfused. Intake/Output Summary (Last 24 hours) at 10/05/2024 1402 Last data filed at 10/05/2024 0926 Gross per 24 hour Intake 700 ml Output -- Net 700 ml IOPTH Pre: 185 Post: 110 PACU PTH: 33 ASSESSMENT: Cherie Jimenez is POD 0 s/p parathyroidectomy and recovering appropriately. PLAN of Care: - Regular diet - No SQH - SCDs - Multimodal pain regimen, minimize narcotics - Scheduled calcium-D3 500mg-200IU TID; calcium carbonate 500mg prn - Follow-up PTH and Ca in AM - Resume home meds as appropriate - Monitor overnight in the surgical floor Sheila Godinez MD General Surgery PGY-1 Endocrine Surgery Service Pager: [phone] [facility] 10-05-2024 Note HNO ID: [id number] Author: CHEYENNE VELASQUEZ APRN.REMOTE SENSING SURVEYOR Service: ? 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 Staffing REMOTE SENSING SURVEYOR: Cheyenne Velasquez APRN.REMOTE SENSING SURVEYOR Performed by: REMOTE SENSING SURVEYOR Indications and Patient Condition Indications for airway management: anesthesia Preoxygenated: yes anesthesia circuit Patient position: sniffing Method: asleep Difficult Mask: No Final Airway Details Final airway type: endotracheal airway Final Endotracheal Airway: ETT Cuffed: yes Successful intubation technique: video laryngoscopy Devices used: Lyn Endotracheal tube insertion site: oral Blade: Wil Blade size: #3 ETT size (mm): 7.0 Measured from: lips Measurement (cm): 21 Placement verified by: capnometry Cormack-Lehane Classification: grade I - full view of glottis Number of attempts at approach: 1 Airway not difficult SIGNATURE: Cheyenne Velasquez APRN.REMOTE SENSING SURVEYOR PATIENT NAME: Cherie Jimenez DATE: October 05, 2024 TIME: 9:03 AM CSN: [id number] [facility] 09-26-2024 Instructions Christa Angelo APRN.MONOMER RECOVERY SUPERVISOR - 09/26/2024 10:28 AM EDT Images from the original note were not included. [place] [facility] Pre-Anesthesia Consultation Clinic PATIENT PREOPERATIVE INSTRUCTIONS Randa Mejía MD has scheduled you for your procedure at this surgery center: [facility]: [phone] -- [address] [place] [address]. Please read below carefully for your personalized instructions. Dietary Restrictions: - No solid food after midnight. - You may have 12 ounces of clear liquids (water, clear juices such as apple juice or gatorade, carbonated beverages, clear tea, black coffee, jello) until 2 hours before scheduled arrival at facility. Medications: Unless instructed differently below, stay on all of your medications until your surgery. If you start any new medications after today's visit, please contact your surgeon. Pre-Surgery Med Instructions Medication Instructions cyanocobalamin 1,000 mcg/mL Do not take the day of surgery TOPROL XL 25 mg 24 hr tablet If you normally take this medication in the morning, take the morning of surgery. vit A,C,V-Nwys-Dtamoo (PRESERVISION AREDS) 2,148 mcg-113 mg-45 mg-17.4mg tab Hold 7 days prior to surgery. aspirin 81 mg cap Hold aspirin 7 days prior to surgery. levothyroxine (SYNTHROID) 75 mcg tablet If you normally take this medication in the morning, take the morning of surgery. biotin 5 mg caspule Do not take the day of surgery INCRUSE ELLIPTA 62.5 mcg/actuation inhaler If you normally take this medication in the morning, take the morning of surgery. cholecalciferol (VITAMIN D3) 50 mcg (2,000 unit) tablet Do not take the day of surgery polyethylene glycol 3350 (MIRALAX, GLYCOLAX) 17 gram/dose powder Do not take the day of surgery dicyclomine (BENTYL) 10 mg capsule Do not take the day of surgery Minoxidil 5 % soln Do not take the day of surgery albuterol HFA (PROVENTIL HFA) 90 mcg/actuation inhaler If you normally take this medication in the morning, take the morning of surgery. folic acid 1 mg tablet Do not take the day of surgery LIPITOR 10MG TABLET If you normally take this medication in the morning, take the morning of surgery. If you start any new medications after today's visit, please contact the surgeon's office. If you are currently using a aanw-asc-tqky injectable or oral medication for diabetes or weight loss such as Dulaglutide (Trulicity), Exenatide (Byetta, Bydureon), Liraglutide (Victoza, Saxenda), Semaglutide (Ozempic, Wegovy, Rybelsus), or Tirzepatide (Mounjaro), the medicine should be stopped at least 7 days before surgery. These medicines can cause food to remain in your stomach for a very long time and increase the risks from surgery and anesthesia. Not stopping the medication for a long enough time may result in your surgery being rescheduled. Blood Thinning Medications: - Stop NSAIDS (Ibuprofen, Advil, Aleve, Motrin, Celebrex, Mobic, etc.) 7 days before surgery, as directed by your surgeon. - Stop Aspirin 7 days before surgery, as directed by your surgeon. - Stop ALL herbal and dietary supplements 7 days before surgery. - You may take Tylenol (Acetaminophen) or any of your pain medications that do not contain aspirin or NSAIDS as needed. Important Reminders: - Candy, mints, and tobacco products are NOT permitted the morning of surgery. - Hearing aids, dentures and glasses may be worn the morning of surgery. - NO jewelry, body piercings, makeup, hairpins or contacts are to be worn the day of surgery. If you develop symptoms such as a fever, cold, or flu, or have other changes to your health within TWO DAYS of scheduled surgery or the morning of surgery, please contact the surgery center above. Personal Belongings: -Please have photo ID and insurance cards. -If you do not have a copy of advance directives on file with us, please bring a copy with you on the day of surgery. - Leave ALL valuables and money at home or with family members. - Please bring high-quality footwear, such as sneakers, to the hospital for ambulating post-surgery. For Outpatient Procedures: - YOU MUST HAVE A RESPONSIBLE STOCK GRADER TAKE YOU HOME. A TRAVEL RN OR OR TUMBLING INSTRUCTOR CANNOT BE MADE A RESPONSIBLE STOCK GRADER. - We recommend that a responsible person stays with you overnight to take care of you. - You cannot stay in a hotel alone after outpatient surgery. You will not be permitted to have your surgery, if you do not have someone to take care of you. Arrival Time for Surgery: - The Surgery Center or hospital where you are having surgery will call the afternoon before surgery (or Tuesday for Tuesday surgery) with a scheduled arrival time. - If you have not heard by 4 pm, please contact the surgery center above. Please be aware that emergency situations arise, which may delay or change your surgical time. If this happens, we will notify you as soon as possible and regret any inconvenience. If you already have an Advance Directive, please fax a copy to [phone] or email to for it to be added to your chart. If you do not have an Advance Directive, you can find the appropriate form and more information at [email or web address]. We recommend that you complete the Advance Directive form found on the website and bring it with you the day of your surgery. It can be witnessed and scanned into your chart that day. Christa Angelo APRN.MARIAM documented in this encounter [facility] 09-26-2024 History and physical note Images from the original note were not included. PREANESTHESIA CONSULT CLINIC TELEHEALTH VISIT Patient has been identified by name and date of : Yes This is a virtual visit using MyChart Zoom Video Visit. It require patient-provider interaction for the medical decision making as documented below. Reason for contact: PACC visit Accompanied by: Self I have communicated my name and active licensure. The patient's identity and physical location were verified at the time of this visit. Either the patient or their legal arborist representative has been informed of the risks and benefits of -- and alternatives to -- treatment through a remote evaluation and consents to proceed with the evaluation remotely. Scheduled Surgery: PARATHYROIDECTOMY Subjective CHIEF COMPLAINT: No chief complaint on file. HPI: This is a 79 year old female who presents for exploratory parathyroid. ACTIVE PROBLEM LIST Unspecified Constipation Personal History of Other Malignant Neoplasm of Skin Abdominal Pain, Other Specified Site Fibromyalgia Tingling B12 Deficiency Hypothyroid Peripheral Neuropathy Head Pain Migraine Loss of Smell Hyperglycemia Alopecia Trochanteric Bursitis of Left Hip Hld (Hyperlipidemia) History of Stroke Tremor Copd (Chronic Obstructive Pulmonary Disease) (Hcc) Pvc (Premature Ventricular Contraction) Irritable Bowel Syndrome With Constipation Pernicious Anemia Colitis History of Kidney Stones Post-Operative Nausea and Vomiting [place] (Hard of Hearing) PAST MEDICAL HISTORY Diagnosis Date Abdominal pain, other specified site Alopecia Fibromyalgia HLD (hyperlipidemia) 09/25/2024 IBS (irritable bowel syndrome) Kidney stones S/p ureteral stents, lithotripies x5 PMH - PAST MEDICAL HISTORY OF 05/16/1999 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 Post-operative nausea and vomiting 09/26/2024 Skin cancer, basal cell and squamous cell Thoracic outlet syndrome 05/16/1985 1st rib resection PAST SURGICAL HISTORY Procedure Laterality Date CATARACT EXTRACTION HX right eye CHOLECYSTECTOMY 07/2014 COLONOSCOPY FLX DX W/COLLJ SPEC WHEN PFRMD 01/31/2013 Colonoscopy PAST SURGICAL HISTORY OF hyster PAST SURGICAL HISTORY OF appendectomy PAST SURGICAL HISTORY OF tubal PAST SURGICAL HISTORY OF tonsils PAST SURGICAL HISTORY OF 2000 Moh's procedure FAMILY HISTORY Problem Relation Age of Onset Coronary Artery Disease Father other (tremors) Father siblings other (syringomyelia) Father Prostate Cancer Brother other (Senile Dementia) Mother other (hemiplegic migraines) Son Social History Tobacco Use Smoking status: Former Current packs/day: 0.00 Average packs/day: 1 pack/day for 50.0 years (50.0 ttl pk-yrs) Types: Cigarettes Start date: 1965 Quit date: 05/19/2015 Years since quittin.3 Smokeless tobacco: Never Substance Use Topics Alcohol use: No Drug use: Never ALLERGIES Allergen Reactions Adhesive Tape (Chanel* Rash Polysporin [Bacitra* Swelling Augmentin [Amoxicil* Vomiting Hydrocodone-Acetami* GI Upset Propoxyphene Vomiting Skelaxin [Metaxalon* Other: See Comments Rapid heartbeat MEDICATIONS: Current Outpatient Medications Medication Sig cyanocobalamin 1,000 mcg/mL Inject 1,000 mcg intramuscularly once every month. TOPROL XL 25 mg 24 hr tablet Take 25 mg by mouth once daily. vit A,C,Y-Ypgr-Vcmmhr (PRESERVISION AREDS) 2,148 mcg-113 mg-45 mg-17.4mg tab Take 1 tablet by mouth daily with breakfast. aspirin 81 mg cap Take 1 tablet by mouth once daily. levothyroxine (SYNTHROID) 75 mcg tablet Take 75 mcg by mouth once daily. biotin 5 mg caspule Take 5,000 mcg by mouth once daily. INCRUSE ELLIPTA 62.5 mcg/actuation inhaler Inhale 1 Puff as instructed once daily. cholecalciferol (VITAMIN D3) 50 mcg (2,000 unit) tablet Take 2,000 Units by mouth once daily. polyethylene glycol 3350 (MIRALAX, GLYCOLAX) 17 gram/dose powder Take 17 g by mouth as needed. dicyclomine (BENTYL) 10 [...] Take 1 tablet by mouth once daily. LIPITOR 10MG TABLET Take 10 mg by mouth once daily. EASIVENT 1 Device one time only. No current facility-administered medications for this visit. COVID VACCINATION STATUS: Fully vaccinated REVIEW OF SYSTEMS: Pain Assessment: General: No weight loss, malaise or fevers. 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 Respiratory: Positive for Mild COPD Cardiovascular: Positive for: HLD PVCs GI: Positive for IBS : No history of dysuria, frequency or incontinence,, stones or chronic kidney disease [employer] OFF[employer]ER: Negative for abnormal vaginal bleeding, abnormal vaginal discharge. : Denies, No LMP recorded. Patient is postmenopausal. Endocrine: Hypothyroidism Hematology: prenicious anemia Oncology: skin cancer SCC and basal cell. Psych: No history of psychiatric symptoms or problems. Musculoskeletal: Negative for joint pain or swelling, back pain or muscle pain. Skin: Negative for lesions, rash and itching. Objective PHYSICAL EXAM: Ht 5' 4 (1.63m) Wt 134 lb (60.8kg) BMI 22.99 kg/(m^2). VIDEO EXAM: (if completed, performed via video enabled technology) GENERAL: alert and appropriate, in no distress, well-hydrated, well nourished, and happy, smiling, interactive SKIN: no rash noted HEAD: normocephalic, no abnormality or lesion noted EYES: no injection OROPHARYNX: moist mucus membranes NECK: no self-reported cervical adenopathy RESPIRATORY: breathing non-labored CHEST: equal chest rise with normal respiratory effort HEART: no JVD or heart palpitations. Diagnostic tests reviewed for today's visit: Lab Value Units Date High Low HB 15.1 g/dL 07/25/2024 15.5 11.5 HCT 44.9 % 07/25/2024 46.0 36.0 WBC 9.94 k/uL 07/25/2024 11.00 3.70 PLT 278 k/uL 07/25/2024 400 150 NA 139 mmol/L 07/25/2024 144 136 K 4.0 mmol/L 07/25/2024 5.1 3.7 GLUC 96 mg/dL 07/25/2024 99 74 BUN 24 mg/dL 07/25/2024 21 7 CREAT 1.00 mg/dL 07/25/2024 0.96 0.58 PTSEC No results within date range. INR No results within date range. APTT No results within date range. ALT 11 U/L 06/27/2024 38 7 AST 24 U/L 06/27/2024 35 13 TBILI 0.4 mg/dL 06/27/2024 1.3 0.2 TSH No results within date range. Lab Value Units Date High Low HCGQT No results within date range. UHCG No results within date range. HCG, BODY* No results within date range. Lab Value Units Date High Low ABORHD No results within date range. ABSCREEN No results within date range. Hemoglobin A1C (%) Date Value 11/08/2012 5.6 02/11/2012 5.6 EK04/23/2024 Stress 06/05/2024 Impression/Recommendations ASSESSMENT: Hypothyroid Assessment: on daily synthroid. Monitored by Dr Mejía. HLD (hyperlipidemia) Assessment: on po lipitor History of stroke Assessment: small stroke 2022. Had vision changes, went to ophthalmology and referred to neuro. Testing done and place on Plaxis for short time. Now no residual effects. Peripheral neuropathy Assessment: into hands and up forearm, feet part way up to knees. Monitored by neurology. Tremor Assessment: family tremor Left > right. Father, brother x2, sister also have it. 6 children total, 4 have it. Fibromyalgia Assessment: Dx 1979. No medications needed. COPD (chronic obstructive pulmonary disease) (HCC) Assessment: incruise ellitpta daily. Albuterol PRN prior to work outs or exercise. Quit smoking 9 years ago. PVC (premature ventricular contraction) Assessment: on metoprolol, from er with c/o sob. Saw cardiology and had stress + 24 hour hour holter monitor. No s/s since. Irritable bowel syndrome with constipation Assessment: miralax daily. Pernicious anemia Assessment: on B injections. Has been stable. Latest Reference Range & Units 06/27/24 14:54 07/25/24 07:46 Hemoglobin 11.5 - 15.5 g/dL 14.8 15.1 Colitis Assessment: 2011 ischemic bowel, another flare up August 2024 with extreme diarrhea. History of kidney stones Assessment: required lithotripsy. Post-operative nausea and vomiting Assessment: in the past. [place] (hard of hearing) Assessment: speech recognitions. METS: Climb a flight of stairs or walk up a hill (5.50 METs) Patient denies any chest pain or undue shortness of breath with the above physical activity. ASA Class: 2 ANESTHESIA FINDINGS: Intubation History: No history of difficult intubation Significant Anesthesia Considerations: Postop nausea/vomiting Airway Exam: General: Normal appearance Mallampati Score is CLASS II ULBT: Class I - Lower incisors can bite the upper lip above the raoul line Neck: Normal appearance and function, Distance from hyoid to mentum during neck extension is at least 3 finger breaths Mouth: Normal tongue size Dentition: Intact Airway History: No abnormal airway history STOP BANG Score: Criteria: Age over 50 (79 year old) Score = 1 PLAN: Pt optimally prepared for surgery, pending day of surgery DOS exam. CONSULTS: Patient does not require consults for optimization at this time. The Following Tests/Procedures Have Been Initiated: No orders of the defined types were placed in this encounter. Planned Anesthetic: Per anesthesia choice Instructions Given to Patient: Patient given verbal instructions and voices comprehension and compliance. Copy sent electronically via My Chart, email, or mobile device. This is a virtual visit. It required patient-provider interaction for the medical decision making as documented above. SIGNATURE: Christa Angelo APRN.CNP PATIENT NAME: Cherie Jimenez DATE: September 26, 2024 TIME: 9:57 AM PAGER/CONTACT #: [facility] 09-26-2024 History and physical note Images from the original note were not included. PREANESTHESIA CONSULT CLINIC TELEHEALTH VISIT Patient has been identified by name and date of : Yes This is a virtual visit using [employer] Zoom Video Visit. It require patient-provider interaction for the medical decision making as documented below. Reason for contact: PACC visit Accompanied by: Self I have communicated my name and active licensure. The patient's identity and physical location were verified at the time of this visit. Either the patient or their legal arborist representative has been informed of the risks and benefits of -- and alternatives to -- treatment through a remote evaluation and consents to proceed with the evaluation remotely. Scheduled Surgery: PARATHYROIDECTOMY Subjective CHIEF COMPLAINT: No chief complaint on file. HPI: This is a 79 year old female who presents for exploratory parathyroid. ACTIVE PROBLEM LIST Unspecified Constipation Personal History of Other Malignant Neoplasm of Skin Abdominal Pain, Other Specified Site Fibromyalgia Tingling B12 Deficiency Hypothyroid Peripheral Neuropathy Head Pain Migraine Loss of Smell Hyperglycemia Alopecia Trochanteric Bursitis of Left Hip Hld (Hyperlipidemia) History of Stroke Tremor Copd (Chronic Obstructive Pulmonary Disease) (Hcc) Pvc (Premature Ventricular Contraction) Irritable Bowel Syndrome With Constipation Pernicious Anemia Colitis History of Kidney Stones Post-Operative Nausea and Vomiting [place] (Hard of Hearing) PAST MEDICAL HISTORY Diagnosis Date Abdominal pain, other specified site Alopecia Fibromyalgia HLD (hyperlipidemia) 09/25/2024 IBS (irritable bowel syndrome) Kidney stones S/p ureteral stents, lithotripies x5 PMH - PAST MEDICAL HISTORY OF 05/16/1999 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 Post-operative nausea and vomiting 09/26/2024 Skin cancer, basal cell and squamous cell Thoracic outlet syndrome 05/16/1985 1st rib resection PAST SURGICAL HISTORY Procedure Laterality Date CATARACT EXTRACTION HX right eye CHOLECYSTECTOMY 07/2014 COLONOSCOPY FLX DX W/COLLJ SPEC WHEN PFRMD 01/31/2013 Colonoscopy PAST SURGICAL HISTORY OF hyster PAST SURGICAL HISTORY OF appendectomy PAST SURGICAL HISTORY OF tubal PAST SURGICAL HISTORY OF tonsils PAST SURGICAL HISTORY OF 1999 Moh's procedure FAMILY HISTORY Problem Relation Age of Onset Coronary Artery Disease Father other (tremors) Father siblings other (syringomyelia) Father Prostate Cancer Brother other (Senile Dementia) Mother other (hemiplegic migraines) Son Social History Tobacco Use Smoking status: Former Current packs/day: 0.00 Average packs/day: 1 pack/day for 50.0 years (50.0 ttl pk-yrs) Types: Cigarettes Start date: 1965 Quit date: 05/19/2015 Years since quittin.3 Smokeless tobacco: Never Substance Use Topics Alcohol use: No Drug use: Never ALLERGIES Allergen Reactions Adhesive Tape (Chanel* Rash Polysporin [Bacitra* Swelling Augmentin [Amoxicil* Vomiting Hydrocodone-Acetami* GI Upset Propoxyphene Vomiting Skelaxin [Metaxalon* Other: See Comments Rapid heartbeat MEDICATIONS: Current Outpatient Medications Medication Sig cyanocobalamin 1,000 mcg/mL Inject 1,000 mcg intramuscularly once every month. TOPROL XL 25 mg 24 hr tablet Take 25 mg by mouth once daily. vit A,C,B-Yecz-Jpellt (PRESERVISION AREDS) 2,148 mcg-113 mg-45 mg-17.4mg tab Take 1 tablet by mouth daily with breakfast. aspirin 81 mg cap Take 1 tablet by mouth once daily. levothyroxine (SYNTHROID) 75 mcg tablet Take 75 mcg by mouth once daily. biotin 5 mg caspule Take 5,000 mcg by mouth once daily. INCRUSE ELLIPTA 62.5 mcg/actuation inhaler Inhale 1 Puff as instructed once daily. cholecalciferol (VITAMIN D3) 50 mcg (2,000 unit) tablet Take 2,000 Units by mouth once daily. polyethylene glycol 3350 (MIRALAX, GLYCOLAX) 17 gram/dose powder Take 17 g by mouth as needed. dicyclomine (BENTYL) 10 [...] Take 1 tablet by mouth once daily. LIPITOR 10MG TABLET Take 10 mg by mouth once daily. EASIVENT 1 Device one time only. No current facility-administered medications for this visit. COVID VACCINATION STATUS: Fully vaccinated REVIEW OF SYSTEMS: Pain Assessment: General: No weight loss, malaise or fevers. 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 Respiratory: Positive for Mild COPD Cardiovascular: Positive for: HLD PVCs GI: Positive for IBS : No history of dysuria, frequency or incontinence,, stones or chronic kidney disease [employer]: Negative for abnormal vaginal bleeding, abnormal vaginal discharge. : Denies, No LMP recorded. Patient is postmenopausal. Endocrine: Hypothyroidism Hematology: prenicious anemia Oncology: skin cancer SCC and basal cell. Psych: No history of psychiatric symptoms or problems. Musculoskeletal: Negative for joint pain or swelling, back pain or muscle pain. Skin: Negative for lesions, rash and itching. Objective PHYSICAL EXAM: Ht 5' 4 (1.63m) Wt 134 lb (60.8kg) BMI 22.99 kg/(m^2). VIDEO EXAM: (if completed, performed via video enabled technology) GENERAL: alert and appropriate, in no distress, well-hydrated, well nourished, and happy, smiling, interactive SKIN: no rash noted HEAD: normocephalic, no abnormality or lesion noted EYES: no injection OROPHARYNX: moist mucus membranes NECK: no self-reported cervical adenopathy RESPIRATORY: breathing non-labored CHEST: equal chest rise with normal respiratory effort HEART: no JVD or heart palpitations. Diagnostic tests reviewed for today's visit: Lab Value Units Date High Low HB 15.1 g/dL 07/25/2024 15.5 11.5 HCT 44.9 % 07/25/2024 46.0 36.0 WBC 9.94 k/uL 07/25/2024 11.00 3.70 PLT 278 k/uL 07/25/2024 400 150 NA 139 mmol/L 07/25/2024 144 136 K 4.0 mmol/L 07/25/2024 5.1 3.7 GLUC 96 mg/dL 07/25/2024 99 74 BUN 24 mg/dL 07/25/2024 21 7 CREAT 1.00 mg/dL 07/25/2024 0.96 0.58 PTSEC No results within date range. INR No results within date range. APTT No results within date range. ALT 11 U/L 06/27/2024 38 7 AST 24 U/L 06/27/2024 35 13 TBILI 0.4 mg/dL 06/27/2024 1.3 0.2 TSH No results within date range. Lab Value Units Date High Low HCGQT No results within date range. UHCG No results within date range. HCG, BODY* No results within date range. Lab Value Units Date High Low ABORHD No results within date range. ABSCREEN No results within date range. Hemoglobin A1C (%) Date Value 11/08/2012 5.6 02/11/2012 5.6 EK04/23/2024 Stress 06/05/2024 Impression/Recommendations ASSESSMENT: Hypothyroid Assessment: on daily synthroid. Monitored by Dr Mejía. HLD (hyperlipidemia) Assessment: on po lipitor History of stroke Assessment: small stroke 2022. Had vision changes, went to ophthalmology and referred to neuro. Testing done and place on Plaxis for short time. Now no residual effects. Peripheral neuropathy Assessment: into hands and up forearm, feet part way up to knees. Monitored by neurology. Tremor Assessment: family tremor Left > right. Father, brother x2, sister also have it. 6 children total, 4 have it. Fibromyalgia Assessment: Dx 1979. No medications needed. COPD (chronic obstructive pulmonary disease) ([facility]) Assessment: incruise ellitpta daily. Albuterol PRN prior to work outs or exercise. Quit smoking 9 years ago. PVC (premature ventricular contraction) Assessment: on metoprolol, from er with c/o sob. Saw cardiology and had stress + 24 hour hour holter monitor. No s/s since. Irritable bowel syndrome with constipation Assessment: miralax daily. Pernicious anemia Assessment: on B injections. Has been stable. Latest Reference Range & Units 06/27/24 14:54 07/25/24 07:46 Hemoglobin 11.5 - 15.5 g/dL 14.8 15.1 Colitis Assessment: 2011 ischemic bowel, another flare up August 2024 with extreme diarrhea. History of kidney stones Assessment: required lithotripsy. Post-operative nausea and vomiting Assessment: in the past. [place] (hard of hearing) Assessment: speech recognitions. METS: Climb a flight of stairs or walk up a hill (5.50 METs) Patient denies any chest pain or undue shortness of breath with the above physical activity. ASA Class: 2 ANESTHESIA FINDINGS: Intubation History: No history of difficult intubation Significant Anesthesia Considerations: Postop nausea/vomiting Airway Exam: General: Normal appearance Mallampati Score is CLASS II ULBT: Class I - Lower incisors can bite the upper lip above the raoul line Neck: Normal appearance and function, Distance from hyoid to mentum during neck extension is at least 3 finger breaths Mouth: Normal tongue size Dentition: Intact Airway History: No abnormal airway history STOP BANG Score: Criteria: Age over 50 (79 year old) Score = 1 PLAN: Pt optimally prepared for surgery, pending day of surgery DOS exam. CONSULTS: Patient does not require consults for optimization at this time. The Following Tests/Procedures Have Been Initiated: No orders of the defined types were placed in this encounter. Planned Anesthetic: Per anesthesia choice Instructions Given to Patient: Patient given verbal instructions and voices comprehension and compliance. Copy sent electronically via My Chart, email, or mobile device. This is a virtual visit. It required patient-provider interaction for the medical decision making as documented above. SIGNATURE: Christa Angelo APRN.CNP PATIENT NAME: Cherie Jimenez DATE: September 26, 2024 TIME: 9:57 AM PAGER/CONTACT #: documented in this encounter [facility] 07-27-2024 Telephone encounter Note INDEXED EKG AND STRESS TEST [facility] Work Phone: 07-27-2024 Miscellaneous Notes INDEXED EKG AND STRESS TEST documented in this encounter [facility] 07-24-2024 History of Present illness Narrative [facility] [place] Department of Endocrine Surgery Randa Mejía M.D. [address] [place] [address] Ms. Cherie Jimenez was seen in the office today in consultation for primary hyperparathyroidism. The patient was referred by Dr. Scarlett Cabrera, and my findings and recommendations will be communicated by way of the shared medical record. Thank you for referring your patient, Ms. Jimenez, for evaluation of primary hyperparathyroidism. As you know, she is a 78-year-old female who was incidentally found to have elevated calcium levels on routine blood work. Subsequent biochemical work-up also revealed elevated PTH levels. The diagnosis of primary hyperparathyroidism was made, and she was referred here for further evaluation. The patient's past medical history is significant for hypothyroidism, IBS, recurrent kidney stones, and fibromyalgia. Her medications include toprol, inhalers, levothyroxine, albuterol, biotin, folic acid, lipitor, dicyclomine, famotidine, aspirin, and vitamins. The patient's past surgical history is significant for lithotripsy, cholecystectomy, hysterectomy, appendectomy, tubal ligation, and first rib resection. The patient denies any family history of hypercalcemia, hyperparathyroidism, or kidney stones. The patient denies any history of ionizing radiation to the head or neck. In terms of symptoms related to primary hyperparathyroidism, she has had recurrent kidney stones many years ago. Her most recent episode in April did not require surgery. She also has intermittent reflux, musculoskeletal pain, constipation, and fatigue. Latest Ref Rng 03/17/2021 06/27/2024 06/28/2024 07/10/2024 07/18/2024 - PARATHYROID DATA SHEET Calcium 8.5 - 10.2 mg/dL 10.3 (H) Calcium 8.5 - 10.2 mg/dL 10.3 (H) 9.9 Ionized Calcium 1.08 - 1.30 mmol/L 1.40 (H) PTH, Intact 15 - 65 pg/mL 70 (H) 108 (H) Phosphorus 2.7 - 4.8 mg/dL 3.8 Creatinine 0.58 - 0.96 mg/dL 0.91 Creatinine 0.58 - 0.96 mg/dL 0.96 Vitamin D 25 Hydroxy 31.0 - 80.0 ng/mL 44.5 Vit D1,25 Dihydroxy 19.9 - 79.3 pg/mL 52.2 Calcium, 24 Hr Urine 100.0 - 300.0 mg/24 hr 79.8 (L) She has not yet undergone a parathyroid scan. Her most recent bone density scan performed on 07/18/24 revealed a T-score of -4.0 of the forearm, consistent with osteoporosis. On physical examination, Ms. Jimenez is a healthy appearing woman in no acute distress. Inspection of the head and neck reveals no obvious abnormalities. Palpation of the neck reveals no thyromegaly or cervical lymphadenopathy. Ultrasound examination was performed in the office. This revealed an atrophic thyroid gland. Within the left thyroid bed, there was a hypoechoic lesion measuring 0.34 x 0.54 x 0.61 cm, suspicious for an enlarged left parathyroid gland. No other areas were seen to suggest an abnormal parathyroid gland. In summary, Ms. Jimenez is a 78-year-old female with biochemical studies that show clear evidence of primary hyperparathyroidism. Given her markedly decreased bone density, as well as other manifestations of primary hyperparathyroidism, I feel that she would be best served by undergoing a parathyroid exploration. The indications, risks, benefits, and alternatives of a parathyroid exploration were explained to the patient in detail. I will keep you informed as to her perioperative course. I appreciate being involved in the care of your patient, and please feel free to contact me should you have questions or concerns. RANDA MEJÍA M.D. CC: Scarlett Cabrera M.D. Alyce Cantrell M.D. documented in this encounter [facility] 07-24-2024 Note HNO ID: [id number] Author: RANDA MEJÍA MD Service: ? Author Type: Physician Type: Progress Notes Filed: 07/24/2024 10:54 Note Text: [facility] [place] Department of Endocrine Surgery Randa Mejía M.D. [address] [place] [address] Ms. Cherie Jimenez was seen in the office today in consultation for primary hyperparathyroidism. The patient was referred by Dr. Scarlett Cabrera, and my findings and recommendations will be communicated by way of the shared medical record. Thank you for referring your patient, Ms. Jimenez, for evaluation of primary hyperparathyroidism. As you know, she is a 78-year-old female who was incidentally found to have elevated calcium levels on routine blood work. Subsequent biochemical work-up also revealed elevated PTH levels. The diagnosis of primary hyperparathyroidism was made, and she was referred here for further evaluation. The patient's past medical history is significant for hypothyroidism, IBS, recurrent kidney stones, and fibromyalgia. Her medications include toprol, inhalers, levothyroxine, albuterol, biotin, folic acid, lipitor, dicyclomine, famotidine, aspirin, and vitamins. The patient's past surgical history is significant for lithotripsy, cholecystectomy, hysterectomy, appendectomy, tubal ligation, and first rib resection. The patient denies any family history of hypercalcemia, hyperparathyroidism, or kidney stones. The patient denies any history of ionizing radiation to the head or neck. In terms of symptoms related to primary hyperparathyroidism, she has had recurrent kidney stones many years ago. Her most recent episode in April did not require surgery. She also hasintermittent reflux, musculoskeletal pain, constipation, and fatigue. Latest Ref Rng 03/17/2021 06/27/2024 06/28/2024 07/10/2024 07/18/2024 - PARATHYROID DATA SHEET Calcium 8.5 - 10.2 mg/dL 10.3 (H) Calcium 8.5 - 10.2 mg/dL 10.3 (H) 9.9 Ionized Calcium 1.08 - 1.30 mmol/L 1.40 (H) PTH, Intact 15 - 65 pg/mL 70 (H) 108 (H) Phosphorus 2.7 - 4.8 mg/dL 3.8 Creatinine 0.58 - 0.96 mg/dL 0.91 Creatinine 0.58 - 0.96 mg/dL 0.96 Vitamin D 25 Hydroxy 31.0 - 80.0 ng/mL 44.5 Vit D1,25 Dihydroxy 19.9 - 79.3 pg/mL 52.2 Calcium, 24 Hr Urine 100.0 - 300.0 mg/24 hr 79.8 (L) She has not yet undergone a parathyroid scan. Her most recent bone density scan performed on 07/18/24 revealed a T-score of -4.0 of the forearm, consistent with osteoporosis. On physical examination, Ms. Jimenez is a healthy appearing woman in no acute distress. Inspection of the head and neck reveals no obvious abnormalities. Palpation of the neck reveals no thyromegaly or cervical lymphadenopathy. Ultrasound examination was performed in the office. This revealed an atrophic thyroid gland. Within the left thyroid bed, there was a hypoechoic lesion measuring 0.34 x 0.54 x 0.61 cm, suspicious for an enlarged left parathyroid gland. No other areas were seen to suggest an abnormal parathyroid gland. In summary, Ms. Jimenez is a 78-year-old female with biochemical studies that show clear evidence of primary hyperparathyroidism. Given her markedly decreased bone density, as well as other manifestations of primary hyperparathyroidism, I feel that she would be best served by undergoing a parathyroid exploration. The indications, risks, benefits, and alternatives of a parathyroid exploration were explained to the patient in detail. I will keep you informed as to her perioperative course. I appreciate being involved in the care of your patient, and please feel free to contact me should you have questions or concerns. RANDA MEJÍA M.D. CC: Scarlett Cabrera M.D. Alyce Cantrell M.D. [facility] 07-24-2024 Instructions Viv Guadarrama MA - 07/24/2024 9:28 AM EDT Thank you for choosing the [facility] Department of Endocrinology, Diabetes and Metabolism. Did you know that you need to call 48 hours in advance of your scheduled visit, if you are unable to make your appointment? The [facility] [place] thanks you for your commitment, because patients not showing to their appointment results in a lost opportunity for patients to receive world class health care at the [facility]. To Cancel an appointment, please choose one of the following: - Call the Appointment Call Center at [phone] - From [facility], Go to Appointments - Cancel Appts If cancelling, consider your need to reschedule to prevent further delays in your care. To Schedule an appointment, please choose one of the following: - Call the Appointment Call Center at [phone] - From [facility], Go to Appointments - Request an Appt documented in this encounter [facility] 07-20-2024 History of Present illness Narrative Program_ID:[id number] Access Code: [email or web address] URL: [email or web address] Date: 07-20-2024 Prepared By: Nancy Guadarrama Program Notes Exercises - Sidelying Hip Abduction - 1-2 x daily - 7 x weekly - 3-4 sets - 10 reps - Clamshell - 1-2 x daily - 7 x weekly - 2 sets - 15 reps - Sidelying Reverse Clamshell - 1-2 x daily - 7 x weekly - 2 sets - 15 reps - Supine Gluteal Sets - 2 x daily - 7 x weekly - 2 sets - 10 reps Images from the original note were not included. Episode Visit Count: 1 Therapist That Will Accept/Oversee The Plan Of Care: Nancy Guadarrama Start of Care Date: 07/20/24 Onset Date: 02/20/24 Plan of Care Certification Date: 07/20/24 Next Certification Due Date: 08/31/24 Patient Identified by Name and Date of : Yes REHABILITATION AND SPORTS THERAPY PHYSICAL THERAPY EVALUATION PLAN OF CARE: Assessment: Cherie Jimenez presents with diagnosis of trochanteric bursitis of left hip that interferes with sleeping . The patient presents with impairments in ADL's, overall function, patient reported outcome measures, and symptom management. PROMIS (Patient-Reported Outcomes Measurement Information System) scores were reviewed and identified as a rehabilitation concern. Prognosis for therapy is Good due to: current objective clinical presentation, good support system/ coping skills, positive past response to therapy . The patient will benefit from skilled therapy services to meet the goals established for this plan of care as noted below. Goals for Episode of Care: established 07/20/24 [place] in home exercise program. Patient will demonstrate increase in L hip abductor strength to 4/5 during manual muscle testing in order to improve function for prior functional tasks. Perform sleeping 6-8 hours with reports of continued decreased report of symptoms/pain in 6 weeks. Patient Goals: resolve hip pain at night Time Frame for Goals and Treatment : 08/31/24 Planned Interventions, Frequency, and Duration: Current Frequency: 1x/week Duration: 6 weeks Total Number of Visits Planned: 6 Planned Treatment Interventions: Gait Training (77960), Self-skilled nursing management (84866), Therapeutic activities (25935), Manual therapy (26431), Therapeutic exercise (27699), Neuromuscular re-education (73521) PLAN FOR NEXT VISIT: hold chart 3 mo. Patient demonstrates good understanding of plan of care and treatment. The above goals and plan of care were discussed and agreed upon by patient/family. SUBJECTIVE: for left hip pain that radiates to the lateral L ankle. Pt. was given steroid injection which improved symptoms. Pt. was dx with L bursitis before but reports it did not radiate down the leg. Pt. works out at [employer] regularly. Pt. only had pain while trying to sleep, never during the day with activity or while lying on the couch. No longer having pain since the injection. 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 Pt. has had fibromyalgia for 30 years. Pt. has TIA hx October 2022. 07/2022. Hx of small fibromyopathy causes burninig in the BLE's over the past 13 years. Denies LBP. Patient Goals: resolve hip pain at night Functional Limitations: sleeping Prior Level of Function: Independent without limitations Relevant History Right or Left Handed: Left Intake Information: Prescription present Previous Treatment: Physical Therapy Falls Interview: No positive findings with falls interview Spine History Symptoms Location at Onset: Thigh, Calf, Foot, Buttock Symptoms Since Onset: Improving (resolved) Pain is Worse Always: PM Pain is Better Always: (day) Sleep Affected by Pain: (pain no longer comes on at night) Pain: Pain Pain Level: 0 Pain Location: Hip - Left Post Treatment Pain Post Treatment Pain Level: 0 Post Treatment Pain Location: Hip - Left Post Treatment Pain Description: Aching PROMIS Scales 07/13/2024 06/29/2024 12/18/2023 Higher is Better Phys Func - T Score 41 (mild dysfunction) 41 (mild dysfunction) Phys Func - Percentile 18 18 Self-Eff Symptom - T Score 37 (Low) Self-Eff Symptom - Percentile 10 06/29/2024 12/18/2023 Lower is Better Pain Interference - T Score 60 (mild) 62 (moderate) Pain Interference - Percentile 16 12 T-scores: mean of general population = 50. 5 points is clinically meaningfully difference Percentiles provide an indication of how the patient's score ranks in relation to the general population. Higher percentile rankings indicate better function/quality of life. 50th percentile is the average of the general population and indicates half of respondents had a worse score. OBJECTIVE MEASURES WITH LEVEL OF FUNCTION: Hip Observations L Hip Palpation Tenderness: Greater trochanter (some tenderness but improved) Sensation - Lower Extremity LE Light Touch Sensation: Impaired (BLE from the knee down - constant but worse at night) Sensation - Lumbar Sensation: Grossly Intact Lumbar Spine AROM Lumbar Flexion: Normal Lumbar Extension: Normal Lumbar R Side [place]: Normal Lumbar L Side [place]: Normal Lumbar R Side-Bend: Normal Lumbar L Side-Bend: Normal Lumbar R Rotation: Normal Lumbar L Rotation: Normal LE Strength L Hip Extension: 3/5 L Hip Flexion (L2): 4/5 L Hip ABduction: 3+/5 L Hip Internal Rotation: 4/5 L Hip External Rotation: 3-/5 Special Tests - Hip and Spine Hip and Spine Special Tests: FADDIR Test, ANETTE Test, Active SLR, José Miguel's Test, Scour Test, SLR Test, Slump Test SLR Test: Left Negative Slump Test: Left Negative ANETTE Test: Left Negative FADDIR Test: Left Negative Scour Test: Left Negative Active SLR: Left Negative Gait Gait: Independent Gait Distance (feet): 50 Gait Device: None Gait Observation: unremarkable Education: Education Learning Preferences: Demonstration, Explanation, Performance, Printed Materials Barriers: None Learning/educational needs: Plan of Care, Home exercise program, Posture Education Provided: Yes, see treatment interventions for education provided Education Provided To: Patient Education Mode/Type: Performance, Literature/Printed Materials, Explanation/Discussion, Demonstration Response to Education/Teach Back: States/Identifies, Return Demonstration TREATMENT: PT Treatment Interventions: Therapeutic Exercise, Self-Snf Management Evaluation Therapeutic Exercise: 1: *Access Code: [email or web address] URL: [email or web address] Date: 07/20/2024 Prepared by: Nancy Vargas Exercises - Sidelying Hip Abduction - 1-2 x daily - 7 x weekly - 3-4 sets - 10 reps - Clamshell - 1-2 x daily - 7 x weekly - 2 sets - 15 reps - Sidelying Reverse Clamshell - 1-2 x daily - 7 x weekly - 2 sets - 15 reps - Supine Gluteal Sets - 2 x daily - 7 x weekly - 2 sets - 10 reps - 5 hold Skilled Intervention: Patient was educated in proper exercise technique and purpose for exercises. Skilled judgment was used in selection of appropriate interventions. Provided written instruction for home exercise program to facilitate proper performance and compliance. Correct performance of therapeutic exercises was facilitated with verbal, visual, and tactile cuing. Educated patient on rationale for performing exercises in regards to decreasing fatigue , increase ease of ADL, and ROM and function . Patient education as noted. Self-Snf Management: 1: discussed pain referral patterns of the glutes 2: discussed the difference between bursitis and glute tendinoapthy -- regardless the injection resolved symptoms and PT treatment would be similar 3: encouraged continued strengthening at the gym as tolerated, HEP given as a supplement to this program Skilled Intervention: Skilled judgment in the selection of proper modification for activity of daily living/home management based on clinical presentation, deficits, and needs. Provided written instruction for activities of daily living techniques to facilitate proper performance and compliance. Reviewed patient specific diagnosis in relation to activities of daily living/home management. Activity progression based on professional judgement. Moderate verbal cues for maintaining neutral spine alignment. Provided written instruction for home program to facilitate proper performance and compliance. Correct performance of home program was facilitated with verbal, visual, and tactile cueing. Billing * Evaluation Low Complexity: 1 Unit Therapeutic Exercise Treatment Minutes: 15 Self-Care/Home Management Treatment Minutes: 10 Skilled Treatment Time Minutes (timed and untimed codes): 45 Total Session Time (minutes): 45 Session Start Time : 1305 Session Stop Time : 1350 Nancy Guadarrama PT documented in this encounter [facility] 07-20-2024 Note HNO ID: [id number] Author: NANCY GUADARRAMA PT Service: ? Author Type: Physical Therapist Type: Progress Notes Filed: 07/20/2024 14:35 Note Text: Episode Visit Count: 1 Therapist That Will Accept/Oversee The Plan Of Care: Nancy Guadarrama Start of Care Date: 07/20/24 Onset Date: 02/20/24 Plan of Care Certification Date: 07/20/24 Next Certification Due Date: 08/31/24 Patient Identified by Name and Date of : Yes RE[facility]ABIL[facility]ATION AND SPORTS THERAPY PHYSICAL THERAPY EVALUATION PLAN OF CARE: Assessment: Cherie Jimenez presents with diagnosis of trochanteric bursitis of left hip that interferes with sleeping . The patient presents with impairments in ADL's, overall function, patient reported outcome measures, and symptom management. PROMIS? (Patient-Reported Outcomes Measurement Information System) scores were reviewed and identified as a rehabilitation concern. Prognosis for therapy is Good due to: current objective clinical presentation, good support system/ coping skills, positive past response to therapy . The patient will benefit from skilled therapy services to meet the goals established for this plan of care as noted below. Goals for Episode of Care: established 07/20/24 [place] in home exercise program. Patient will demonstrate increase in L hip abductor strength to 4/5 during manual muscle testing in order to improve function for prior functional tasks. Perform sleeping 6-8 hours with reports of continued decreased report of symptoms/pain in 6 weeks. Patient Goals: resolve hip pain at night Time Frame for Goals and Treatment : 08/31/24 Planned Interventions, Frequency, and Duration: Current Frequency: 1x/week Duration: 6 weeks Total Number of Visits Planned: 6 Planned Treatment Interventions: Gait Training (00017), Self-skilled nursing management (81567), Therapeutic activities (43417), Manual therapy (95155), Therapeutic exercise (36894), Neuromuscular re-education (30089) PLAN FOR NEXT VISIT: hold chart 3 mo. Patient demonstrates good understanding of plan of care and treatment. The above goals and plan of care were discussed and agreed upon by patient/family. SUBJECTIVE: for left hip pain that radiates to the lateral L ankle. Pt. was given steroid injection which improved symptoms. Pt. was dx with L bursitis before but reports it did not radiate down the leg. Pt. works out at [employer] regularly. Pt. only had pain while trying to sleep, never during the day with activity or while lying on the couch. No longer having pain since the injection. 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 Pt. has had fibromyalgia for 30 years. Pt. has TIA hx October 2022. 07/2022. Hx of small fibromyopathy causes burninig in the BLE's over the past 13 years. Denies LBP. Patient Goals: resolve hip pain at night Functional Limitations: sleeping Prior Level of Function: Independent without limitations Relevant History Right or Left Handed: Left Intake Information: Prescription present Previous Treatment: Physical Therapy Falls Interview: No positive findings with falls interview Spine History Symptoms Location at Onset: Thigh, Calf, Foot, Buttock Symptoms Since Onset: Improving (resolved) Pain is Worse Always: PM Pain is Better Always: (day) Sleep Affected by Pain: (pain no longer comes on at night) Pain: Pain Pain Level: 0 Pain Location: Hip - Left Post Treatment Pain Post Treatment Pain Level: 0 Post Treatment Pain Location: Hip - Left Post Treatment Pain Description: Aching PROMIS Scales 07/13/2024 06/29/2024 12/18/2023 Higher is Better Phys Func - T Score 41 (mild dysfunction) 41 (mild dysfunction) Phys Func - Percentile 18 18 Self-Eff Symptom - T Score 37 (Low) Self-Eff Symptom - Percentile 10 06/29/2024 12/18/2023 Lower is Better Pain Interference - T Score 60 (mild) 62 (moderate) Pain Interference - Percentile 16 12 T-scores: mean of general population = 50. 5 points is clinically meaningfully difference Percentiles provide an indication of how the patient's score ranks in relation to the general population. Higher percentile rankings indicate better function/quality of life. 50th percentile is the average of the general population and indicates half of respondents had a worse score. OBJECTIVE MEASURES WITH LEVEL OF FUNCTION: Hip Observations L Hip Palpation Tenderness: Greater trochanter (some tenderness but improved) Sensation - Lower Extremity LE Light Touch Sensation: Impaired (BLE from the knee down - constant but worse at night) Sensation - Lumbar Sensation: Grossly Intact Lumbar Spine AROM Lumbar Flexion: Normal Lumbar Extension: Normal Lumbar R Side [place]: Normal Lumbar L Side [place]: Normal Lumbar R Side-Bend: Normal Lumbar L Side-Bend: Normal Lumbar R Rotation: Normal Lumbar L Rotation: Normal LE Strength L Hip Extension: 3/5 L Hip Flexion (L2): 4/5 L Hip ABduction: 3+/5 L Hip Internal Rota (more content not included)... [facility] 07-18-2024 Telephone encounter Note 07/18/2024 INTAKE COMPLETED-NEED MIBI,DXA(PER PT. HAD BONE DENSITY DONE ON 07/18/2024 AT [facility]-PT WAS PROVIDED W/THE FAX # AND SHE WILL HAVE THE RESULTS FAXED). ENDOCRINE SURGERY PATIENT WORKSHEET Initial Call Date: July 18, 2024 Reason for Consult/ Referral: Hyperparathyroid PATIENT DEMOGRAPHICS Name: Cherie Jimenez [facility]#: [id number] : 1945 AGE: [age] year old Contact Numbers: Home: (home) Work: There is no work phone number on file. PATIENT PHYSICIAN INFORMATION Referring Doctor: Address: Phone: [employer] Operator: Address: Phone: PCP: Alyce Cantrell ([facility]) [address] [place] [address] PAST TREATMENT Office notes: SEE EPIC Medications: ASPIRIN Pre-Visit Testing Latest Ref Rng 06/27/2024 06/28/2024 07/10/2024 Protein, Total 6.3 - 8.0 g/dL 6.7 Albumin 3.9 - 4.9 g/dL 4.3 Calcium 8.5 - 10.2 mg/dL 10.3 (H) Bilirubin, Total 0.2 - 1.3 mg/dL 0.4 Alkaline Phosphatase 34 - 123 U/L 130 (H) AST 13 - 35 U/L 24 ALT 7 - 38 U/L 11 Glucose 74 - 99 mg/dL 97 BUN 7 - 21 mg/dL 19 Creatinine 0.58 - 0.96 mg/dL 0.96 Sodium 136 - 144 mmol/L 139 Potassium 3.7 - 5.1 mmol/L 3.9 Chloride 98 - 107 mmol/L 102 CO2 22 - 30 mmol/L 28 Anion Gap 8 - 15 mmol/L 9 eGFR >=60 mL/min/1.73m 61 Protein, Urine Random 0 - 20 mg/dL 5 Creatinine, Ur Random (UCRR) 42.2 - 237.9 mg/dL 58.1 Protein/Creat Ratio <0.15 mg/mg 0.09 Calcium, 24 Hr Urine 100.0 - 300.0 mg/24 hr 79.8 (L) Period hr 24 Urine Volume 24 hour mL 1,450 PTH, Intact 15 - 65 pg/mL 70 (H) Imaging Reports: SEE [facility] CD of Images: SEE [facility] FNA: no FNA Slides: N/A Has the patient ever had thyroid or parathyroid surgery before: No Operative Reports: NONE AVAILABLE Pathology Reports: NONE AVAILABLE [facility] 07-18-2024 Miscellaneous Notes 07/18/2024 INTAKE COMPLETED-NEED MIBI,DXA(PER PT. HAD BONE DENSITY DONE ON 07/18/2024 AT [facility]-PT WAS PROVIDED W/THE FAX # AND SHE WILL HAVE THE RESULTS FAXED). ENDOCRINE SURGERY PATIENT WORKSHEET Initial Call Date: July 18, 2024 Reason for Consult/ Referral: Hyperparathyroid PATIENT DEMOGRAPHICS Name: Cherie Jimenez [facility]#: [id number] : 1945 AGE: [age] year old Contact Numbers: Home: (home) Work: There is no work phone number on file. PATIENT PHYSICIAN INFORMATION Referring Doctor: Address: Phone: [employer] Operator: Address: Phone: PCP: Alyce Cantrell ([facility]) [address] [place] [address] PAST TREATMENT Office notes: SEE EPIC Medications: ASPIRIN Pre-Visit Testing Latest Ref Rng 06/27/2024 06/28/2024 07/10/2024 Protein, Total 6.3 - 8.0 g/dL 6.7 Albumin 3.9 - 4.9 g/dL 4.3 Calcium 8.5 - 10.2 mg/dL 10.3 (H) Bilirubin, Total 0.2 - 1.3 mg/dL 0.4 Alkaline Phosphatase 34 - 123 U/L 130 (H) AST 13 - 35 U/L 24 ALT 7 - 38 U/L 11 Glucose 74 - 99 mg/dL 97 BUN 7 - 21 mg/dL 19 Creatinine 0.58 - 0.96 mg/dL 0.96 Sodium 136 - 144 mmol/L 139 Potassium 3.7 - 5.1 mmol/L 3.9 Chloride 98 - 107 mmol/L 102 CO2 22 - 30 mmol/L 28 Anion Gap 8 - 15 mmol/L 9 eGFR >=60 mL/min/1.73m 61 Protein, Urine Random 0 - 20 mg/dL 5 Creatinine, Ur Random (UCRR) 42.2 - 237.9 mg/dL 58.1 Protein/Creat Ratio <0.15 mg/mg 0.09 Calcium, 24 Hr Urine 100.0 - 300.0 mg/24 hr 79.8 (L) Period hr 24 Urine Volume 24 hour mL 1,450 PTH, Intact 15 - 65 pg/mL 70 (H) Imaging Reports: SEE [employer] CD of Images: SEE EPIC FNA: no FNA Slides: N/A Has the patient ever had thyroid or parathyroid surgery before: No Operative Reports: NONE AVAILABLE Pathology Reports: NONE AVAILABLE documented in this encounter [facility] 07-09-2024 Telephone encounter Note Faxed via [employer] [facility] 07-09-2024 Miscellaneous Notes Faxed via [employer] Summary: Order Dania from [facility] is calling Scarlett Cabrera MD today to request correction to existing order. Dania asked for the following order to be corrected to show [employer] Please fax order to [phone] Call Back #: [phone] option 1 Patient has been identified by name and birthdate. Jeri Elizalde documented in this encounter [facility] 07-09-2024 Telephone encounter Note Summary: Order Dania from [facility] is calling Scarlett Cabrera MD today to request correction to existing order. Dania asked for the following order to be corrected to show [employer] Please fax order to [phone] Call Back #: [phone] option 1 Patient has been identified by name and birthdate. Jeri Elizalde [facility] 07-06-2024 Note HNO ID: [id number] Author: SCARLETT CABRERA MD Service: ? Author Type: Physician Type: Progress Notes Filed: 07/06/2024 15:21 Note Text: F/u positive RANDELL HPI: Joint pain is the same. Has a pain going down the outside of the left leg to the ankle. Occurs while in bed as she lays on that side. It wakes her up at night, has to flip to the other side. It is affecting her sleep. As she is walking around during the day, it's fine. No significant low back pain. No joint swelling. Reports a lot of fatigue and feels cold all the time. Can fall asleep easily during the day. Started around 12/2023. This is atypical for her. On synthroid and follows with PCP 12/2023: About 5-6 months ago she started to get pain in the wrists and hands. No swelling. Dorsum of hands and PIPs. Has a known ganglion cyst on left wrist. She is very stiff in the morning - hips and knees, not too much in the hands. With standing a lot, her back gets sore and has to sit down. Back is stiff with sitting for a while. She gets pain on the sides of the hip down the leg while sleeping at night. It wakes her at night and then has to switch sides. Then it happens on the other side. So constantly rolling from side to side. Also gets hot flashes at night and urinating in the night. Sleep interrupted and gets tired during the day. Sometimes naps. Saw PCP in September who prescribed HCQ 100mg daily for 3 weeks with no issues, then increased to 200mg but she developed nausea/abd pain. Went back to 100mg for a few weeks and since there was no improvement in her symptoms, she stopped it. Has known FMS, SFN, IBS, familial tremor. She is not taking any medications for pain. Has tried gabapentin/lyrica/cymbalta/amitrip tyline - either not helpful or had an adverse reaction. Very sensitive to meds. SFN affect feet/hands. Follows with Dr. Hdez's office. Denies severe dry eyes/mouth, although her eyes bother her by midafternoon on some days. No swollen glands. 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 Had a TIA 12/2022 and now on a baby aspirin. Son diagnosed with psoriatic arthritis/?RA. Patient does not have psoriasis. , Bhargav, patient in this practice, 07/2022. 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, basal cell and squamous cell Thoracic outlet syndrome 1985 1st rib resection FAMILY HISTORY Problem Relation Age of Onset Coronary Artery Disease Father other (tremors) Father siblings other (syringomyelia) Father Prostate Cancer Brother other (Senile Dementia) Mother other (hemiplegic migraines) Son PAST SURGICAL HISTORY Procedure Laterality Date CATARACT EXTRACTION HX right eye CHOLECYSTECTOMY 07/2014 COLONOSCOPY FLX DX W/COLLJ SPEC WHEN PFRMD 01/31/2013 Colonoscopy PAST SURGICAL HISTORY OF hyster PAST SURGICAL HISTORY OF appendectomy PAST SURGICAL HISTORY OF tubal PAST SURGICAL HISTORY OF tonsils PAST SURGICAL HISTORY OF 1999 Moh's procedure Social History Tobacco Use Smoking status: Former Current packs/day: 0.00 Average packs/day: 1 pack/day for 50.0 years (50.0 ttl pk-yrs) Types: Cigarettes Start date: 1965 Quit date: 05/19/2015 Years since quittin.1 Smokeless tobacco: Never Substance Use Topics Alcohol use: No Drug use: Never Allergies: ALLERGIES Allergen Reactions Adhesive Tape (Chanel* Rash Polysporin [Bacitra* Swelling Augmentin [Amoxicil* Vomiting Hydrocodone-Acetami* GI Upset Propoxyphene Vomiting Skelaxin [Metaxalon* Other: See Comments Rapid heartbeat Medications: cyanocobalamin 1,000 mcg/mL Inject 1,000 mcg intramuscularly once every month. TOPROL XL 25 mg 24 hr tablet Take 25 mg by mouth once daily. vit A,C,F-Nrot-Sjbrue (PRESERVISION AREDS) 2,148 mcg-113 mg-45 mg-17.4mg tab Take 1 tablet by mouth daily with breakfast. aspirin 81 mg cap Take 1 tablet by mouth once daily. levothyroxine (SYNTHROID) 75 mcg tablet Take 75 mcg by mouth once daily. biotin 5 mg caspule Take 5,000 mcg by mouth once daily. INCRUSE ELLIPTA 62.5 mcg/actuation inhaler Inhale 1 Puff as instructed once daily. EASIVENT 1 Device one time only. cholecalciferol (VITAMIN D3) 50 mcg (2,000 unit) tablet Take 2,000 Units by mouth once daily. polyethylene glycol 3350 (MIRALAX, GLYCOLAX) 17 gram/dose powder Take 17 g by mouth as needed. dicyclomine (BENTYL) 10 mg capsule Take 10 mg by mouth before meals and at bedtime. (Patient taking differently: Take 10 mg by mouth as needed.) Minoxidil 5 % soln Apply 1 application to affected area once daily. albuterol H (more content not included)... [facility] 07-06-2024 History of Present illness Narrative Associated Order(s): Large Joint Arthro/Inj: L greater trochanteric bursa Post-Procedure Diagnose(s): Trochanteric bursitis of left hip F/u positive RANDELL HPI: Joint pain is the same. Has a pain going down the outside of the left leg to the ankle. Occurs while in bed as she lays on that side. It wakes her up at night, has to flip to the other side. It is affecting her sleep. As she is walking around during the day, it's fine. No significant low back pain. No joint swelling. Reports a lot of fatigue and feels cold all the time. Can fall asleep easily during the day. Started around 12/2023. This is atypical for her. On synthroid and follows with PCP 12/2023: About 5-6 months ago she started to get pain in the wrists and hands. No swelling. Dorsum of hands and PIPs. Has a known ganglion cyst on left wrist. She is very stiff in the morning - hips and knees, not too much in the hands. With standing a lot, her back gets sore and has to sit down. Back is stiff with sitting for a while. She gets pain on the sides of the hip down the leg while sleeping at night. It wakes her at night and then has to switch sides. Then it happens on the other side. So constantly rolling from side to side. Also gets hot flashes at night and urinating in the night. Sleep interrupted and gets tired during the day. Sometimes naps. Saw PCP in September who prescribed HCQ 100mg daily for 3 weeks with no issues, then increased to 200mg but she developed nausea/abd pain. Went back to 100mg for a few weeks and since there was no improvement in her symptoms, she stopped it. Has known FMS, SFN, IBS, familial tremor. She is not taking any medications for pain. Has tried gabapentin/lyrica/cymbalta/amitrip tyline - either not helpful or had an adverse reaction. Very sensitive to meds. SFN affect feet/hands. Follows with Dr. Hdez's office. Denies severe dry eyes/mouth, although her eyes bother her by midafternoon on some days. No swollen glands. 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 Had a TIA 12/2022 and now on a baby aspirin. Son diagnosed with psoriatic arthritis/?RA. Patient does not have psoriasis. , Bhargav, patient in this practice, 07/2022. 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, basal cell and squamous cell Thoracic outlet syndrome 1985 1st rib resection FAMILY HISTORY Problem Relation Age of Onset Coronary Artery Disease Father other (tremors) Father siblings other (syringomyelia) Father Prostate Cancer Brother other (Senile Dementia) Mother other (hemiplegic migraines) Son PAST SURGICAL HISTORY Procedure Laterality Date CATARACT EXTRACTION HX right eye CHOLECYSTECTOMY 07/2014 COLONOSCOPY FLX DX W/COLLJ SPEC WHEN PFRMD 01/31/2013 Colonoscopy PAST SURGICAL HISTORY OF hyster PAST SURGICAL HISTORY OF appendectomy PAST SURGICAL HISTORY OF tubal PAST SURGICAL HISTORY OF tonsils PAST SURGICAL HISTORY OF 1999 Moh's procedure Social History Tobacco Use Smoking status: Former Current packs/day: 0.00 Average packs/day: 1 pack/day for 50.0 years (50.0 ttl pk-yrs) Types: Cigarettes Start date: 1965 Quit date: 05/19/2015 Years since quittin.1 Smokeless tobacco: Never Substance Use Topics Alcohol use: No Drug use: Never Allergies: ALLERGIES Allergen Reactions Adhesive Tape (Chanel* Rash Polysporin [Bacitra* Swelling Augmentin [Amoxicil* Vomiting Hydrocodone-Acetami* GI Upset Propoxyphene Vomiting Skelaxin [Metaxalon* Other: See Comments Rapid heartbeat Medications: cyanocobalamin 1,000 mcg/mL Inject 1,000 mcg intramuscularly once every month. TOPROL XL 25 mg 24 hr tablet Take 25 mg by mouth once daily. vit A,C,I-Uplf-Htztfq (PRESERVISION AREDS) 2,148 mcg-113 mg-45 mg-17.4mg tab Take 1 tablet by mouth daily with breakfast. aspirin 81 mg cap Take 1 tablet by mouth once daily. levothyroxine (SYNTHROID) 75 mcg tablet Take 75 mcg by mouth once daily. biotin 5 mg caspule Take 5,000 mcg by mouth once daily. INCRUSE ELLIPTA 62.5 mcg/actuation inhaler Inhale 1 Puff as instructed once daily. EASIVENT 1 Device one time only. cholecalciferol (VITAMIN D3) 50 mcg (2,000 unit) tablet Take 2,000 Units by mouth once daily. polyethylene glycol 3350 (MIRALAX, GLYCOLAX) 17 gram/dose powder Take 17 g by mouth as needed. dicyclomine (BENTYL) 10 mg capsule Take 10 mg by mouth before meals and at bedtime. (Patient taking differently: Take 10 mg by mouth as needed.) Minoxidil 5 % soln Apply 1 application to affected area once daily. albuterol HFA (PROVENTIL HFA) 90 mcg/actuation inhaler Inhale 2 Puffs as instructed four times daily as needed for Wheezing/Shortness of Breath. folic acid 1 mg tablet Take 1 tablet by mouth once daily. LIPITOR 10MG TABLET Take 10 mg by mouth once daily. magnesium oxide (MAG-OX) 400 mg (241.3 mg magnesium) tablet Take 400 mg by mouth once daily. (Patient not taking: Reported on 07/06/2024) famotidine (PEPCID AC ORAL) Take 20 mg by mouth as needed. (Patient not taking: Reported on 07/06/2024) Review of Systems CONSTITUTION: Negative for: Fever and Recent weight change HEENT: Positive for: Dry mouth Negative for: Nosebleeds, Mouth sores and Trouble swallowing RESPIRATORY: Positive for: Shortness of breath Negative for: Cough and Pain with breathing GASTROINTESTINAL: Positive for: Heartburn and Abdominal pain Negative for: Melena and Diarrhea MUSCULOSKELETAL: Positive for: Arthralgias, Myalgias, Muscle weakness and Morning Joint Stiffness Negative for: Joint swelling NEUROLOGICAL: Positive for: Headaches and Numbness Negative for: Memory loss SKIN: Positive for: Hair loss Negative for: Rash, Skin changes and Nail changes EYES: Positive for: Eye dryness Negative for: Eye pain, Eye redness and visual disturbance CARDIOVASCULAR: Negative for: Leg swelling GENITOURINARY: Negative for: Dysuria and Hematuria HEMATOLOGIC/LYMPHATIC: Negative for: Swollen glands Physical Exam: BP 109/69 Pulse 65 Temp 36.5 C (97.7 F) (Temporal) Ht 162.6 cm (5' 4) Wt 60.6 kg (133 lb 9.6 oz) BMI 22.93 kg/m General:NAD and well-nourished Head: normocephalic ENT:moist mucous membranes, no oral ulcers, teeth and gums normal, and oropharynx normal Extremities:warm and no cyanosis; radial pulses present/equal Skin: no lesions, no telangiectasias, no sclerodactyly, and no nail pitting Neuro:normal gait and negative straight leg raise Joints: hands: no significant TTP, no swelling, good basting marker strength wrists: small ganglion cyst dorsum left wrist, no synovitis, FROM knees: no tenderness or swelling, FROM hips: FROM, TTP left greater trochanteric bursa 5/5 strength throughout lower extremities Back: normal curvature and no vertebral tenderness Psych:alert and oriented x3 , normal affect, and good eye contact Data: Latest Ref Rng 12/23/2023 06/27/2024 RANDELL Negative Positive ! Positive ! RANDELL Titer 1:1280 1:640 RANDELL Pattern Nuclear fine speckled Nuclear fine speckled CCP Antibody IgG Qualitative Negative Negative CCP Antibody, IgG <20 Units <15 Sm Antibody Negative Negative Anti-Sm <1.0 AI <0.2 TIMBER SETTER Antibody QUAL Negative Negative Anti-TIMBER SETTER <1.0 AI <0.2 SSA Antibody Qual Negative Negative Anti-SSA <1.0 AI 0.9 Anti-SSB <1.0 AI <0.2 SSB Antibody Qual Negative Negative CENTROMERE AB QUAL Negative Negative Centromere Ab <1.0 AI <0.2 Scleroderma Ab Qual Negative Negative Scl-70 Abs, EIA <1.0 AI <0.2 BRISEIDA 1 ANTIBODY QUAL Negative Negative Briseida 1 Antibody <1.0 AI <0.2 Ribosomal TIMBER SETTER Qualitative Negative Negative Ribosomal TIMBER SETTER Ab <1.0 AI <0.2 Chromatin Ab Qual Negative Negative Chromatin Ab <1.0 AI <0.2 Rheumatoid Factor <16 IU/mL <10 C3 86 - 166 mg/dL 137 C4 13 - 46 mg/dL 14 THYROID PEROXIDASE ANTIBODY <5.6 IU/mL 7.0 (H) Thyroglobulin Ab, Serum <4.0 IU/mL 10.9 (H) Latest Ref Rng 06/27/2024 WBC 3.70 - 11.00 k/uL 6.80 RBC 3.90 - 5.20 m/uL 5.07 Hemoglobin 11.5 - 15.5 g/dL 14.8 Hematocrit 36.0 - 46.0 % 45.0 MCV 80.0 - 100.0 fL 88.8 MCH 26.0 - 34.0 pg 29.2 MCHC 30.5 - 36.0 g/dL 32.9 RDW-CV 11.5 - 15.0 % 14.2 Platelet Count 150 - 400 k/uL 252 MPV 9.0 - 12.7 fL 10.9 Neut% % 65.5 Abs Neut (ANC) 1.45 - 7.50 k/uL 4.45 Lymph% % 24.3 Abs Lymph 1.00 - 4.00 k/uL 1.65 Muhlenberg% % 6.8 Abs [place]berg <0.87 k/uL 0.46 Eosin% % 2.9 Abs Eosin <0.46 k/uL 0.20 Baso% % 0.4 Abs Baso <0.11 k/uL 0.03 Immature Gran % % 0.1 IMMATURE GRANS (ABS) <0.10 k/uL <0.03 NRBC /100 WBC 0.0 Absolute nRBC <0.01 k/uL <0.01 DTYPE Auto Protein, Total 6.3 - 8.0 g/dL 6.7 Albumin 3.9 - 4.9 g/dL 4.3 Calcium 8.5 - 10.2 mg/dL 10.3 (H) Bilirubin, Total 0.2 - 1.3 mg/dL 0.4 Alkaline Phosphatase 34 - 123 U/L 130 (H) AST 13 - 35 U/L 24 ALT 7 - 38 U/L 11 Glucose 74 - 99 mg/dL 97 BUN 7 - 21 mg/dL 19 Creatinine 0.58 - 0.96 mg/dL 0.96 Sodium 136 - 144 mmol/L 139 Potassium 3.7 - 5.1 mmol/L 3.9 Chloride 98 - 107 mmol/L 102 CO2 22 - 30 mmol/L 28 Anion Gap 8 - 15 mmol/L 9 eGFR >=60 mL/min/1.73m 61 Latest Ref Rng 06/28/2024 PTH, Intact 15 - 65 pg/mL 70 (H) 03/2024: CBC normal ESR 17, CRP 3.3 (<3.0) Ca 10.0 ALP 149, AST/ALT normal Creatinine 1.0 TSH normal SPEP normal Latest Ref Rng 06/28/2024 Color yellow Colorless Clarity Clear Clear Glucose, Urine Trace, Negative Negative Bilirubin, Urine Negative Negative Ketones, Urine Negative, Trace Negative Specific Daniel, Ur 1.005 - 1.030 1.009 Hemoglobin/Blood,Ur Negative, Trace Negative pH, Urine 5.0 - 8.0 7.0 Protein, Urine Trace, Negative Negative Urobilinogen Normal Normal Nitrites Negative Negative Leukest Negative, 25 Frank/uL Negative WBC, Urine 0-5 /HPF 0-5 /HPF RBC, Urine 0-3 /HPF 0-3 /HPF Protein, Urine Random 0 - 20 mg/dL 5 Creatinine, Ur Random (UCRR) 42.2 - 237.9 mg/dL 58.1 Protein/Creat Ratio <0.15 mg/mg 0.09 Latest Ref Rng 12/23/2023 WSR 0 - 20 mm/hr 12 CRP <0.9 mg/dL <0.3 ASSESSMENT/PLAN: 1. Positive RANDELL (antinuclear antibody) - ICD9: 795.79, ICD10: R76.8 (primary diagnosis) Checked due to SFN/joint pain that appears to be more OA/mechanical. May be related to known thyroid disease with low titer thyroid antibodies. Rest of serologies negative and no other clinical features of lupus/related conditions 2. Hyperparathyroidism (HCC) - ICD9: 252.00, ICD10: E21.3 Suspect primary hyperpara - high PTH with high calcium, normal vit D Can stop ca supplement Get 24 hr urine calcium and DXA -axial and forearm See endo surg - CALCIUM, 24 HR URINE - DXA-FOREARM SKELETON - DXA-AXIAL SKELETON - BD DXA TRABECULAR BONE SCORE (TBS) - CONSULT TO ENDOCRINE SURGERY 3. Trochanteric bursitis of left hip - ICD9: 726.5, ICD10: M70.62 Injected today, see PT for home exercises - LARGE JOINT INJECTION/ARTHROCENTESIS - CONSULT TO PHYSICAL THERAPY 4. Malaise and fatigue - ICD9: 780.79, ICD10: R53.81, R53.83 Unclear etiology. ?disturbed sleep due to bursitis. ?thyroid disease given her cold intolerance - may need synthroid adjustment. Advised she talk to PCP. 5. Cold intolerance - ICD9: 780.99, ICD10: R68.89 6. Small fiber neuropathy - ICD9: 356.9, ICD10: G62.9 Did not tolerate gabapentin/lyrica/cymbalta/amitrip tyline in the past. Working with neuro. Rtc 6 months Scarlett Cabrera MD Large Joint Arthro/Inj: L greater trochanteric bursa 07/06/2024 2:49 PM The procedure site was prepped in the usual sterile fashion. Site: L greater trochanteric bursa Medications: 40 mg triamcinolone acetonide 40 mg/mL Anesthetics: 1 mL lidocaine (PF) 10 mg/mL (1 %) Outcome: Tolerated well, no immediate complications Post-injection instructions were reviewed with the patient and the patient voiced understanding of these instructions. Informed Consent Consent Obtained: Verbal [place] Protocol A moment to CARE was completed. SIGN IN Personnel directly involved with the procedure wore the appropriate PPE. Patient/Surrogate Stated/Verified: Patient name, Intended procedure, Relevant allergies and Date of TIME OUT Relevant labs, photos, and/or imaging studies have been reviewed. Intended patient and procedure match the source document(s). Consent documented and matches the intended procedure. Correct side/site marked and visible. Medications required for procedure verified. documented in this encounter [facility] 06-27-2024 Telephone encounter Note Unable to add lab on [facility] 06-27-2024 Miscellaneous Notes Unable to add lab on ----- Message from Scarlett Cabrera MD sent at 06/27/2024 3:59 PM EST ----- Regarding: add on lab Please call lab to add on a PTH to blood drawn today. thanks documented in this encounter [facility] 06-27-2024 Telephone encounter Note ----- Message from Scarlett Cabrera MD sent at 06/27/2024 3:59 PM EST ----- Regarding: add on lab Please call lab to add on a PTH to blood drawn today. thanks [facility] 06-27-2024 Note Addended by: SCARLETT CABRERA on: 06/27/2024 04:01 PM Modules accepted: Orders [facility] 06-27-2024 Miscellaneous Notes Addended by: SCARLETT CABRERA on: 06/27/2024 04:01 PM Modules accepted: Orders 03/2024: CBC normal ESR 17, CRP 3.3 (<3.0) Ca 10.0 ALP 149, AST/ALT normal Creatinine 1.0 TSH normal SPEP normal documented in this encounter [facility] 06-27-2024 Telephone encounter Note 03/2024: CBC normal ESR 17, CRP 3.3 (<3.0) Ca 10.0 ALP 149, AST/ALT normal Creatinine 1.0 TSH normal SPEP normal [facility] 05-30-2024 Evaluation note Diagnosis Onset Date Resolution PVCs (premature ventricular contractions) acute May 30 8:44am COPD (chronic obstructive pulmonary disease) with acute bronchitis acute July 17, 2024 2:10pm Multiple nodules of lung acute July 17, 2024 2:10pm [facility] Work Phone: 1(986) 555-522208-09-2024 History of Present illness Narrative* Rosita Milton, RT(R) - 12/23/2023 1:00 PM EDT Radiology Service Progress Note PATIENT NAME: Cherie Jimenez DATE OF SERVICE: December 23, 2023 TIME: 1:07 PM PATIENT IDENTITY VERIFICATION COMPLETED USING TWO (2) IDENTIFIERS: Name and Date of confirmedby patient verbally. FALL SCREENING: Has the patient had 2 falls in the last year or 1 fall with injury or currently using an Ambulatory Assistive Device (Walker, Cane, Wheelchair, Crutches, etc.)? No PATIENT GENDER DATA: Female. status: : No status: NO. PATIENT RELEVANT IMPLANT DATA REVIEWED: Not Applicable PATIENT PRESENTS WITH AN IMPLANTABLE OR ATTACHED SUMMER SESSIONS DIRECTOR: No RADIOLOGY DEPARTMENT: General X-ray: Exam(s) Completed: Upper Extremity X- Ray(s): Hand, bilateral PERIPHERAL IV DATA: Not applicable SIGNED BY: RT Rainer(David) December 23, 2023 1:07 PM [facility] NoteHNO ID: [id number] Author: ROSITA MILTON RT(R) Service: Radiology Author Type: Technologist Type: Progress Notes Filed: 12/23/2023 13:08 Note Text: Radiology Service Progress Note PATIENT NAME: Cherie Jimenez DATE OF SERVICE: December 23, 2023 TIME: 1:07 PM PATIENT IDENTITY VERIFICATION COMPLETED USING TWO (2) IDENTIFIERS: Name and Date of confirmed by patient verbally. FALL SCREENING: Has the patient had 2 falls in the last year or 1 fall with injury or currently using an Ambulatory Assistive Device (Walker, Cane, Wheelchair, Crutches, etc.)? No PATIENT GENDER DATA: Female. status: : No status: NO. PATIENT RELEVANT IMPLANT DATA REVIEWED: Not Applicable PATIENT PRESENTS WITH AN IMPLANTABLE OR ATTACHED SUMMER SESSIONS DIRECTOR: No RADIOLOGY DEPARTMENT: General X-ray: Exam(s) Completed: Upper Extremity X-Ray(s): Hand, bilateral PERIPHERAL IV DATA: Not applicable SIGNED BY: RT Rainer(David) December 23, 2023 1:07 [facility]08-09-2024 Instructions* Patient Instructions* Scarlett Cabrera MD - 12/23/2023 12:17 PM EDT Tylenol 1000mg at night Try otc patches on the side of the hips Core strengthening for the back [facility] NoteHNO ID: [id number] Author: SCARLETT CABRERA MD Service: ? Author Type: Physician Type: Progress Notes Filed: 12/23/2023 13:09 Note Text: Consultation requested by Dr. Alyce Cantrell for an opinion regarding joint pain. My final recommendations will be communicated back to the requesting physician by way of shared Medical record or letter to requesting physician via [place] mail. Chief Complaint: joint pain HPI: About 5-6 months ago she started to get pain in the wrists and hands. No swelling. Dorsum of hands and PIPs. Has a known ganglion cyst on left wrist. She is very stiff in the morning - hips and knees, not too much in the hands. With standing a lot, her back gets sore and has to sit down. Back is stiff with sitting for a while. She gets pain on the sides of the hip down the leg while sleeping at night. It wakes her at night and then has to switch sides. Then it happens on the other side. So constantly rolling from side to side. Also gets hot flashes at night and urinating in the night. Sleep interrupted and gets tired during the day. Sometimes naps. Saw PCP in September who prescribed HCQ 100mg daily for 3 weeks with no issues, then increased to 200mg but she developed nausea/abd pain. Went back to 100mg for a few weeks and since there was no improvement in her symptoms, she stopped it. Has known FMS, SFN, IBS, familial tremor. She is not taking any medications for pain. Has tried gabapentin/lyrica/cymbalta/amitriptyline - either not helpful or had an adverse reaction. Very sensitive to meds. SFN affect feet/hands. Follows with Dr. Hdez's office. Denies severe dry eyes/mouth, although her eyes bother her by midafternoon on some days. No swollen glands. 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 Had a TIA 12/2022 and now on a baby aspirin. Son diagnosed with psoriatic arthritis/?RA. Patient does not have psoriasis. , Bhargav, patient in this practice, 07/2022. 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 No date: Skin cancer, basal cell Comment: and squamous cell 1986: Thoracic outlet syndrome Comment: 1st rib resection FAMILY HISTORY Problem Relation Age of Onset Coronary Artery Disease Father other (tremors) Father siblings other (syringomyelia) Father Prostate Cancer Brother other (Senile Dementia) Mother other (hemiplegic migraines) Son PAST SURGICAL HISTORY No date: CATARACT EXTRACTION HX Comment: right eye 07/2014: CHOLECYSTECTOMY 01/31/2013: COLONOSCOP W/ OR W/O [facility] SPEC Comment: Colonoscopy No date: PAST SURGICAL HISTORY OF Comment: hyster No date: PAST SURGICAL HISTORY OF Comment: appendectomy No date: PAST SURGICAL HISTORY OF Comment: tubal No date: PAST SURGICAL HISTORY OF Comment: tonsils 2000: PAST SURGICAL HISTORY OF Comment: Moh's procedure Social History Tobacco Use Smoking status: Former Packs/day: 1.00 Years: 50.00 Additional pack years: 0.00 Total pack years: 50.00 Types: Cigarettes Start date: 1965 Quit date: 05/19/2015 Years since quittin.6 Smokeless tobacco: Never Substance Use Topics Alcohol use: No Drug use: Never Allergies: ALLERGIES Allergen Reactions Adhesive Tape (Chanel* Rash Polysporin [Bacitra* Swelling Augmentin [Amoxicil* Vomiting Hydrocodone-Acetami* GI Upset Propoxyphene Vomiting Skelaxin [Metaxalon* Other: See Comments Rapid heartbeat Medications: levothyroxine (SYNTHROID) 75 mcg tablet Take 75 [...] Take 2,000 Units by mouth once daily. polyethylene glycol 3350 (MIRALAX, GLYCOLAX) 17 [...] Take 1 tablet by mouth once daily. LIPITOR 10MG TABLET Take 10 mg by mouth once daily. (Patient taking differently: Take 10 mg by mouth once daily. ) Review of Systems CONSTITUTION: Negat (more content not included)...[facility] 12-23-2023 History of Present illness Narrative* Scarlett Cabrera MD - 12/23/2023 10:53 AM EDT Consultation requested by Dr. Alyce Cantrell for an opinion regarding joint pain. My final recommendations will be communicated back to the requesting physician by way of shared Medical record or letter to requesting physician via [place] mail. Chief Complaint: joint pain HPI: About 5-6 months ago she started to get pain in the wrists and hands. No swelling. Dorsum of hands and PIPs. Has a known ganglion cyst on left wrist. She is very stiff in the morning - hips and knees, not too much in the hands. With standing a lot, her back gets sore and has to sit down. Back is stiff with sitting for a while. She gets pain on the sides of the hip down the leg while sleeping at night. It wakes her at night and then has to switch sides. Then it happens on the other side. So constantly rolling from side to side. Also gets hot flashes at night and urinating in the night. Sleep interrupted and gets tired during the day. Sometimes naps. Saw PCP in September who prescribed HCQ 100mg daily for 3 weeks with no issues, then increased to 200mg but she developed nausea/abd pain. Went back to 100mg for a few weeks and since there was no improvement in her symptoms, she stopped it. Has known FMS, SFN, IBS, familial tremor. She is not taking any medications for pain. Has tried gabapentin/lyrica/cymbalta/amitriptyline - either not helpful or had an adverse reaction. Very sensitive to meds. SFN affect feet/hands. Follows with Dr. Hdez's office. Denies severe dry eyes/mouth, although her eyes bother her by midafternoon on some days. No swollen glands. 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 Had a TIA 12/2022 and now on a baby aspirin. Son diagnosed with psoriatic arthritis/?RA. Patient does not have psoriasis. , Bhargav, patient in this practice, 07/2022. 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 No date: Skin cancer, basal cell Comment: and squamous cell 1986: Thoracic outlet syndrome Comment: 1st rib resection FAMILY HISTORY Problem Relation Age of Onset Coronary Artery Disease Father other (tremors) Father siblings other (syringomyelia) Father Prostate Cancer Brother other (Senile Dementia) Mother other (hemiplegic migraines) Son PAST SURGICAL HISTORY No date: CATARACT EXTRACTION HX Comment: right eye 07/2014: CHOLECYSTECTOMY 01/31/2013: COLONOSCOP W/ OR W/O [facility] SPEC Comment: Colonoscopy No date: PAST SURGICAL HISTORY OF Comment: hyster No date: PAST SURGICAL HISTORY OF Comment: appendectomy No date: PAST SURGICAL HISTORY OF Comment: tubal No date: PAST SURGICAL HISTORY OF Comment: tonsils 2000: PAST SURGICAL HISTORY OF Comment: Moh's procedure Social History Tobacco Use Smoking status: Former Packs/day: 1.00 Years: 50.00 Additional pack years: 0.00 Total pack years: 50.00 Types: Cigarettes Start date: 1965 Quit date: 05/19/2015 Years since quittin.6 Smokeless tobacco: Never Substance Use Topics Alcohol use: No Drug use: Never Allergies: ALLERGIES Allergen Reactions Adhesive Tape (Chanel* Rash Polysporin [Bacitra* Swelling Augmentin [Amoxicil* Vomiting Hydrocodone-Acetami* GI Upset Propoxyphene Vomiting Skelaxin [Metaxalon* Other: See Comments Rapid heartbeat Medications: levothyroxine (SYNTHROID) 75 mcg tablet Take 75 [...] Take 2,000 Units by mouth once daily. polyethylene glycol 3350 (MIRALAX, GLYCOLAX) 17 [...] Take 1 tablet by mouth once daily. LIPITOR 10MG TABLET Take 10 mg by mouth once daily. (Patient taking differently: Take 10 mg by mouth once daily. ) Review of Systems CONSTITUTION: Negative for: Fever and Recent weight change HEENT: Positive for: Dry mouth Negative for: Nosebleeds, Mouth sores and Trouble swallowing RESPIRATORY: Positive for: Shortness of breath (known SOB) Negative for: Cough and Pain with breathing GASTROINTESTINAL: Positive for: Heartburn and Abdominal pain Negative for: Melena and Diarrhea MUSCULOSKELETAL: Positive for: Arthralgias, Myalgias, Muscle weakness and Morning Joint Stiffness Negative for: Joint swelling NEUROLOGICAL: Positive for: Headaches and Numbness Negative for: Memory loss SKIN: Positive for: Hair loss and Nail changes Negative for: Rash and Skin changes EYES: Positive for: Eye pain and Eye dryness Negative for: Eye redness and visual disturbance CARDIOVASCULAR: Negative for: Chest pain and Leg swelling GENITOURINARY: Negative for: Dysuria and Hematuria HEMATOLOGIC/LYMPHATIC: Negative for: Swollen glands Physical Exam: BP 125/64 Pulse 79 Temp 36.6 C (97.8 F) (Temporal) Ht 163 cm (5' 4.17) Wt 60.4 kg (133 lb 2.5 oz) BMI 22.73 kg/m General:NAD and well-nourished Head: normocephalic and no temporal tenderness Eyes: EOMI, mild conjunctival erythema, and non icteric ENT:moist mucous membranes, no oral ulcers, teeth and gums normal, and oropharynx normal Neck:supple, non tender, no lymphadenopathy, and no thyromegaly Lungs: clear , no rhonchi, good respiratory effort, and no crackles CV: RRR Extremities:warm and no cyanosis; radial pulses present/equal Skin: no lesions, no telangiectasias, no sclerodactyly, and no nail pitting Neuro:normal gait and negative straight leg raise Joints: hands: no significant TTP, no swelling, good basting marker strength wrists: small ganglion cyst dorsum left wrist, no synovitis, FROM elbows: no tenderness or swelling, FROM shoulders: FROM ankles: no tenderness or swelling, FROM knees: no tenderness or swelling, FROM hips: FROM, mild TTP greater troch bursa b/l all joints examined are stable 5/5 strength throughout Back: normal curvature and no vertebral tenderness Psych:alert and oriented x3 , normal affect, and good eye contact Data: 05/2023: CBC normal, creatinine 0.9, ALP 116 (35-104), transaminases normal CT a/p 05/2023: : Degenerative changes L5-S1 disk space. A 2.5 mm calculus in left posterior bladder, suggestive of recently passed left ureteral calculus. No hydronephrosis. 2. Diverticulosis of colon. No evidence of diverticulitis. ASSESSMENT/PLAN: 1. Pain in joint, multiple sites - ICD9: 719.49, ICD10: M25.50 (primary diagnosis) Likely all OA with component of SFN/FMS. I don't see clear signs of an inflammatory arthritis but will check some screening labs as below. Check hand films. Discussed role of poor sleep and amplified pain. Drink water earlier in the day to avoid night-timeurination. Try tylenol at night as well as otc patches on the sides of the hips to hopefully decrease the constant rolling over from side to side. Does not feel the hot flashes are too bothersome butbriefly discussed another trial of low dose gabapentin. - RANDELL BY IFA SCREEN - ANTI RYNE ID - RHEUMATOID FACTOR - CCP ANTIBODY IGG - SEDIMENTATION RATE, WESTERGREN - C-REACTIVE PROTEIN - XR HAND GENERAL 3V PA/LAT/OBL BILATERAL 2. Small fiber neuropathy - ICD9: 356.9, ICD10: G62.9 Did not tolerate gabapentin/lyrica/cymbalta/amitriptyline in the past. Working with neuro. Check sjogrens serologies 3. DDD (degenerative disc disease), lumbar - ICD9: 722.52, ICD10: M51.36 Discussed core strengthening for back pain. Offered referral to PT but she declined for now. Will work with call center trainer at her gym. 4. Trochanteric bursitis b/l Advised otc patches on hips at night. Advised tylenol 1000mg at night, otc patches on hips. Will contact w results and determine need for follow up at that time. Scarlett Cabrera MD documented [facility] Telephone encounter Note * Telephone Encounter - Oscar Gruber RN - 09/16/2023 2:[address] Hdez directly messaged pt to address testing results. Oscar Gruber RN, BSN [facility]05-03-2024 Miscellaneous Notes* Telephone Encounter - Oscar Gruber RN - 09/16/2023 2:[address] Hdez directly messaged pt to address testing results. Oscar Gruber RN, BSN * Telephone Encounter - Genevieve Zayas - 09/16/2023 11:37 AM EDT Scanned in medical records from [facility] documented in [facility] Telephone encounter Note * Telephone Encounter - Genevieve Zayas - 09/16/2023 11:37 AM EDT Scanned in medical records from [facility]04-29-2024 History of Present illness Narrative* LemuelRavindra, DO - 09/12/2023 8:00 AM EDT This virtual visit is being done via zoom. I am licensed in the [facility]. I have communicated my name and active licensure. The patient's identity and physical location wereverified at the time of this visit. Either the patient or their legal arborist representative has been informed of the risks and benefits of -- and alternatives to -- treatment through a remote evaluation andconsents to proceed with the evaluation remotely Exam is observational at best. Reviewed her challenges with the scheduling and understand She had a TIA with vision loss /does have a history of retinal tear. Event resolve and did see PCP only Risk factors are age and tobacco She is on plavix and is off. She is on baby ASA Her lipids are stable is on lipitor Her BP has been stable SBP 116-130 She did have CUS, MRI brain, and echo done that were stable. Did have a complication of UTI and renal stone while in [place]. With COPD complications/numerous antibiotics. 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 No M protein is identified. No M protein is identified. No Mprotein is identified. No M protein is identified. No M protein is identified. Staff Review ([facility]) Reviewed by Jenn Toribio, PhD. Reviewed by Enoch Pearson M.D. ([id number]) Reviewed by Enoch Pearson M.D. ([id number]) Reviewed by Gabe Guadalupe MD ([id number]) Reviewed by Ho Fritz MD. ([id number]) Result ([facility]) No M protein is identified. No M protein is identified. No M protein is identified. No M protein is identified. No M protein is identified. No M protein is identified. No M protein is identified. Staff Review ([facility]) Reviewed by Jenn Toribio, PhD. Reviewed by Enoch Pearson M.D. ([id number]) Reviewed by Enoch Pearson M.D. ([id number]) Reviewed by Gabe Guadalupe MD ([id number]) Reviewed by Ho Fritz MD. ([id number]) Reviewed by Rory Myles M.D., PhD ([id number]) THIS NOTE IS FOR AT FIRST FOR MY DOCUMENTATION TO PROVIDE CARE, HELP INSURANCE COMPANY AND COLLEAGUES TO HAVE NEUROLOGICAL CONTEXT OF MY , AND FOR MY PERSONAL RECORDING TO FACILITATE FUTURE CARE BY HAVING A WRITTEN DOCUMENT MEMORY OF OUR CONSULT TOGETHER . THANK YOU FOR UNDERSTANDING THIS OFFICE NOTE IS A PHYSICIAN BASED DOCUMENT FOR COMMUNICATION AND CARE.. documented in this encounterMer[facility]03-[facility]-2024 History and physical note Author Ravindra Espinal [facility] July 22, 2023 8:31am Note Date/Time July 22, 2023 8:23 am [facility] Medical Records Department [address] [place] [address] History & Physical Exam 07/22/23 0822 MR#: [id number] Acct: [id number] Name: CHERIE JIMENEZ Rep #:[id number] : 1945 77 From: Ravindra Espinal MD PCP: Dr. Alyce Cantrell MD Status:[facility] Location: [place] [address] History and Physical Date of Admission: 07/22/23 Visit Reasons: C-Scope Chief Complaint: c-scope Warp Dyeing Vat Tender Required: No Is patient in pain?: No Allergies metaxalone [From Skelaxin] Allergy (Severe, Verified 04/14/23 13:35) palpitations, tachycardia and itchingadhesive Allergy (Verified 04/14/23 13:35) NEEDS FOLLOW-UPamoxicillin trihydrate [From Augmentin] Allergy (Verified 04/14/23 13:35) Unknownbacitracin [From Polysporin] Allergy (Verified 04/14/23 13:35) Unknownpolymyxin B sulfate [From Polysporin] Allergy (Verified 04/14/23 13:35) Unknownpotassium clavulanate [From Augmentin] Allergy (Verified 04/14/23 13:35) Unknownpropoxyphene napsylate [From Darvocet-N 100] Adverse Reaction (Verified 04/14/23 13:35) Nausea/Vom/Diarrhea Medications atorvastatin 10 mg tablet 10 mg PO DAILY 08/08/14 [History Confirmed 04/14/23] biotin 10,000 mcg capsule 5,000 mcg PO DAILY 08/08/14 [History Confirmed 04/14/23] conjugated estrogens 0.625 mg/gram vaginal cream 1 applicatio topical QMONTH 08/08/14 [History Confirmed 04/14/23] cyanocobalamin (vitamin B-12) 1,000 mcg/mL oral drops 1,000 mcg IM QMONTH 08/08/14 [History Confirmed 04/14/23] folic acid 1 mg tablet 1 mg PO DAILY 08/08/14 [History Confirmed 04/14/23] polyethylene glycol 3350 17 gram/dose oral powder 17 g PO DAILY 08/08/14 [History Confirmed 04/14/23] Voltaren 0 mg PO Q8H 03/16/16 [History Confirmed 04/14/23] umeclidinium 62.5 mcg/actuation blister powder for inhalation (Incruse Ellipta) 1 inh inhalation Q24H COPD J44.9 #3 device 09/23/22 [Rx Confirmed 04/14/23] albuterol sulfate 90 mcg/actuation aerosol inhaler (Ventolin HFA) 2 puff inhalation Q6H PRN shortness of breath or wheezing #1 device 06/13/23 [Rx] aspirin 81 mg tablet,delayed release 81 mg PO DAILY 04/14/23 [History Confirmed 04/14/23] dicyclomine 10 mg capsule 10 mg PO TID 04/14/23 [History Confirmed 04/14/23] levothyroxine 50 mcg tablet 75 mcg PO DAILY 04/14/23 [History Confirmed 04/14/23] metaxalone 400 mg tablet mg PO 04/14/23 [History Confirmed 04/14/23] [facility] Medical History (Updated 04/14/23 @ 05:[address] Ravindra Espinal MD) Acute bronchitis Acute pain of both ears Atypical chest pain Basal cell carcinoma (BCC) Bruises easily COPD (chronic obstructive pulmonary disease) Cough Dyspnea on exertion Fatigue Fibromyalgia GERD (gastroesophageal reflux disease) Hearing loss Hemangioma Hoarseness Hyperlipidemia Hypothyroidism IBS (irritable bowel syndrome) Itching Keratosis Kidney stone Lentigo Migraines mohs procedure Oral thrush Other specified disorder of gallbladder Pernicious anemia PND (post-nasal drip) Pulmonary nodule rib removal Squamous cell carcinoma Tobacco dependence in remission Surgical History (Updated 04/14/23 @ 13:31 by Marilu Duffy) H/O cataract removal with insertion of prosthetic lens H/O foot surgery H/O lithotripsy History of appendectomy History of hysterectomy History of vitrectomy Hx laparoscopic cholecystectomy S/P Mohs surgery for basal cell carcinoma S/P tonsillectomy and adenoidectomy Family History (Updated 04/14/23 @ 13:32 by Marilu Duffy) Brother Cancer CAD (coronary artery disease) Heart disease Thyroid disorder HypertensionFather Myocardial infarction Heart disease Hypertension SeizuresSister Heart disease Hypertension Thyroid disorder Social History Smoking Status: Former smoker second hand exposure: Yes alcohol intake: never substance use type: does not use HPI HPI HPI: 77-year-old female who is referred by Dr. Alyce Cantrell for consultation regarding a screening colonoscopy as her previous one was 10 years ago. She has a previous history of colon polyps and ischemic colitis as well as severe fibromyalgia. Among her other medicines she is on low-dose aspirin. Her previous colonoscopy performed by Dr. Obinna Velasco on January 31, 2013 identified nonbleeding internal hemorrhoids and diverticulosis and tortuosity ofthe colon. Random biopsies were obtained showing mild melanosis coli with no evidence of lymphocytic or collagenous colitis. It is of note that there was a exam performed February 22, 2012 colonoscopy suggesting a sessile polyp seen in the descending colon measuring 6 mm. I do not have pathology on that lesion. She lost her shock this past year. She otherwise is doing well. She goes to [employer] to exercise. She has had lifelong irritable bowel syndrome which she manages by taking MiraLAX. Occasionally takes some dicyclomine. No bright red blood per rectum or melena. She is enjoying a high quality of life ROS General General: Yes fatigue; No weight change, appetite, colon cancer, breast cancer or weakness HEENT HEENT: No difficulty swallowing, eye injury, eye surgery, swollen glands or hoarseness Endo Endocrine: Yes thyroid disease; No diabetes mellitus, thyroid cancer, Hair loss, heat intolerance or cold intolerance Skin Skin: No rash or changing moles Breast Breast: No left breast lump, right breast lump, nipple discharge, breast pain, abnormal mammogram, abnormal US or breast enlargement Musc Musculoskeletal: Yes back problems; No arthritis, rheumatoid arthritis, gout or joint pain Cardio Cardiovascular: Yes murmur; No pacemaker, heart disease, atrial fibrillation, high blood pressure, heart attack, heart stent, palpitations, shortness of breat with exertion or chest pain Psych Psychiatric: No depression, anxiety or hearing voices Resp Respiratory: Yes shortness of breath, No sleep apnea, No cough, No COPD, Yes asthma, Yes emphysema and No wheezing Gastro Gastrointestinal: Yes abdominal pain, No nausea or vomiting, No diarrhea, Yes constipation, No blood in stool, No acid reflux, Yes hemorrhoids, No ulcers, No gallbladder problem and No black,tarry stools Patric Hematologic: Yes blood thinners, No blood disorders, No bleeding, Yes anemia andNo blood clots Neuro Neurologic: No system reviewed and no additional complaints, except as documented, No as per HPI, No abnormal gait, No abnormal hearing, No abnormal movements, No abnormal speech, No behavioral changes, No burning sensations, No confusion, No convulsions, No disequilibrium, No dizziness, No localized weakness, No frequent falls, No headache(s), No lack of coordination, No loss ofvision, No memory loss, Yes numbness, No other visual disturbances, No radicularpain, No restless legs, No sensory deficit, No syncope, Yes tingling, No tremor(s), No weakness and No other Exam Const General: cooperative, comfortable and no acute distress [facility] Head: normal to inspection Eyes General: appearance normal, both eyes and all related structures Neck Neck: normal visual inspection Chest Chest palpation & inspection: normal inspection of the chest Resp Effort & Inspection: normal respiratory effort Auscultation: clear to auscultation bilaterally Cardio Rate: regular rate Rhythm: regular rhythm GI Inspection: normal to inspection Other: Soft, nontender, no hepatosplenomegaly Musc Cervical Spine: normal cervical lordosis Skin General: no rashes or lesions noted Neuro General: patient alert, patient awake and patient oriented x3 Extrem General: no calf tenderness Psych Appearance: grossly normal Assessment and Plan Assessment and Plan (1) Screening for intestinal cancer: Status: Acute Plan: Patient is enjoying a high quality of life. She has had a remote history of colon polyp. This was 10 years ago. I do recommend to her colonoscopy with possible biopsy or polypectomy as indicated. We will have her hold her aspirin for 5 days preprocedure. She is intolerant to GoLytely so we will utilize some MiraLAX bowel prep. I do anticipate monitored anesthesia care. I appreciate the opportunity of assisting with the surgical management. Copy: Dr. Alyce Espinal M.D., F.A.C.S. The patient was seen in the emergency room for complaint of dyspnea on exertion. She underwent a complete workup. There were no acute findings and she has remained stable since. She has no other change in her history and physical at this time. Since her office visit she has had a urinary tract infection that was treated with antibiotics she has had a kidney stone she has had a workup for shortness of breath dyspnea which was felt to be exacerbation of COPD and she has been treated with antibiotics for sinus infection. That did delay her proceeding with her colonoscopy. At this time she has no complaints. She is feeling extraordinarily well. She goes to [employer] 4 times a week. She has no chestpain shortness of breath no abdominal pain no bright red blood per rectum or melena and her clinical exam is stable. We will proceed with colonoscopy with possible biopsy or polypectomy as indicated. Ravindra Espinal M.D., F.A.C.S. t 07/22/23 0831 <Electronically signed by Ravindra Espinal MD> Cosigner Signature (if applicable): CC: Dr. Alyce Cantrell MD; Dr. Ravindra Espinal MD~ Signed [facility] Work Phone: 1(688) 190-538803-08-2024 Procedure [facility] 07-22-2023 Procedure [facility]01-30-2024 Progress note Author Florentino Renee [facility] June 14, 2023 2:20pm Note Date/Time June 14, 2023 2 :20pm [facility] Medical Records Department [address] [place] [address] Progress Note - Hospitalist 06/14/23 1413 MR#: [id number] Acct: [id number] Name: CHERIE JIMENEZ Rep #:[id number] : 1945 77 From: Florentino childress MD PCP: Dr. Alyce Cantrell MD Status:ADM IN Location: [place] [address] Subjective Subjective Doing well, breathing a little bit easier today not requiring any oxygen at rest Objective Data Objective Data Vital Signs: Vital Signs Temp Pulse Resp BP Pulse Ox O2 Del Method 97.5 F L 85 20 H 115/58 L 92 Room Air 06/14/23 08:58 06/14/23 13:18 06/14/23 13:18 06/14/23 08:58 06/14/23 09:00 06/14/23 09:00 Oxygen Delivery Method Room Air Weight: 135 lb 12.876 oz Body Mass Index (BMI) 23.3 Intake & Output: Intake and Output for Last 24 Hours 06/13/23 06/14/23 06/15/23 03:59 03:59 03:59 Intake Total 1000 / 1000 Balance 1000 / 1000 Lab / Micro Data 06/14/23 07:51 06/14/23 07:51 Labs: Laboratory Results - last 24 hr 06/13/23 13:40: D-Dimer Quant (PE/DVT) 0.53 H*, Sodium 135 L, Potassium 4.1, Chloride 102, Carbon Dioxide 25.0, Anion Gap 8, BUN 17, Creatinine 1.28 H, EstimCreat Clear Calc 31.78, Est GFR (MDRD) Af Amer 52 L, Est GFR (MDRD) Non-Af 43 L,BUN/Creatinine Ratio 13.3, Glucose 115 H, Calcium 9.8, Troponin I High Sens 11, B-Natriuretic Peptide 48.9 06/14/23 07:51: WBC 5.7, RBC 4.64, Hgb 13.7, Hct 42.0, MCV 90.5, MCH 29.5, MCHC 32.6, RDW Std Deviation 43.3, RDW Coeff of [place]ild[place] 13.2, Plt Count 338, MPV 10.5, Immature Gran % (Auto) 0.300, Neut % (Auto) 88.7 H, Lymph % (Auto) 9.8 L, [place] %(Auto) 1.0, Eos % (Auto) 0.2, Baso % (Auto) 0.0, Absolute Neuts (auto) 5.1, Absolute Lymphs (auto) 0.56 L, Nucleated RBC % 0, Sodium 137, Potassium 4.0, Chloride 106, Carbon Dioxide 22.0, Anion Gap 9, BUN 17, Creatinine 1.24 H, EstimCreat Clear Calc 32.81, Est GFR (MDRD) Af Amer 54 L, Est GFR (MDRD) Non-Af 45 L,BUN/Creatinine Ratio 13.7, Glucose 149 H, Calcium 10.1, Magnesium 2.2, TSH 0.41 Micro: Microbiology 06/13/23 19:40 Mucosa - Nasopharyngeal Respiratory Panel (PCR) - Final 06/13/23 13:40 Mucosa - Nose SARS-CoV-2, Influenza & RSV (PCR) - Final Radiography Diagnostic Testing: Radiology Impression Chest X-Ray 06/13/23 14:08 IMPRESSION: Hyperinflation. COPD. Stable examination. Electronically Signed: Audie Ramires MD at 14:33 EST , Chest CTA 06/13/23 15:10 IMPRESSION: No evidence of pulmonary embolism. Hyperinflation and diffuse emphysematous changes with bullous formation more prominent in the upper lobes. Electronically Signed: Audie Ramires MD at 15:46 EST , Echocardiogram 06/14/23 10:22 Interpretation Summary The estimated ejection fraction is 65 %. Stage 1 diastolic dysfunction. There is Mild focal posterior mitral annular calcification. Moderate focal aortic valve calcification. Limited echo performed due to full study 01/24/2023. Compared to prior study, there is no significant change. Ordering Physician: Florentino Renee Referring Physician: Alyce Cantrell Performed By: Shree Ross RCS Physical Exam Narrative General: Alert, Oriented x3, Cooperative, No apparent distress HEENT: Atraumatic, PERRLA, EOMI, Normocephalic Oral: Moist Mucosa Neck: Supple, No JVD Lungs: Diminished, Normal air movement, No rhonchi, No wheeze, faint crackles Cardiovascular: Regular rate, Regular Rhythm, Normal S1, Normal S2, No murmurs Abdomen: Soft, Non Tender, Non-Distended, No Hepato-splenomegaly Extremities: No edema, Capillary Refill Less than 3 Seconds Skin: No rashes, No breakdown Musculoskeletal: No Tenderness to Palpation of Joints or Extremities Neurological: Cranial nerves II-XII grossly intact, Motor Exam 5/5 strength throughout, Sensory exam intact to light touch and pain Psych/Mental Status: Normal Affect, Appropriate Assessment & Plan Assessment/Plan (1) Hypoxia: (2) Hypothyroidism: (3) History of COPD: (4) GERD (gastroesophageal reflux disease): (5) Acute dyspnea: PLAN: Plan 1. Shortness of breath with hypoxia secondary to acute COPD exacerbation ? CTA of the chest was negative for PE and she does report having a recent upperrespiratory infection prior to her shortness of breath started ? Continue with breathing treatments and inhalers ? COVID, RSV, flu are all negative ? Continue with Levaquin for her recent sinus infection ? Continue with steroids and breathing treatments ? Repeat echo with stage I diastolic dysfunction which is an improvement from her echo back in January so CHF exacerbation is unlikely 2. Hyperlipidemia ? Stable ? Continue with her Lipitor 3. CKD 3 A ? Renal function is improving ? Will continue to monitor 4. Hypothyroidism ? Stable ? Continue with Synthroid 5. Chronic familial tremor/IBS/fibromyalgia ? Had an extensive discussion that a lot of these conditions can be exacerbated by significant stress and she states that she lost her of over 50 years last year due to brain cancer that he has been struggling with for 4 years priorand his was 1 of 5 family members who in a 9-month. ? Discussed the benefits of outpatient therapy DVT: Lovenox Charges/Coding Visit Charges Inpatient E&M: 58460 Subs Hosp L2 06/14/23 1420 <Electronically signed by Florentino Renee MD> Cosigner Signature (if applicable): CC: ~ Signed [facility] Work Phone: 1(492) 957-611801-29-2024 History and physical note Author Emperatriz Zamorano [facility] June 13, 2023 5:06pm Note Date/Time June 13, 2023 5 :06pm [facility] Medical Records Department [address] [place] [address] H&P Exam - Hospitalist 06/13/23 1652 MR#: [id number] Acct: [id number] Name: CHERIE JIMENEZ Rep #:[id number] : 1945 77 From: Empreatriz Zamorano MD PCP: Dr. Alyce Cantrell MD Status:ADM IN [facility] HPI - General General Date of Admission: 06/13/23 Date of Service: 06/13/23 Chief Complaint: SOB and palpitations HPI Narrative CHERIE JIMENEZ, is a 77F with past history of smoking tobacco, COPD, hypertension, hypothyroidism, hyperlipidemia, fibromyalgia who presents to the emergency department for feeling of shortness of breath, palpitations. She has been sick for about 2 weeks and returned home from [place] on June 04. Is currently onBactrim for sinus infection. Today was running errands and felt her heart was racing that she was short of breath and she called her PCP who sent her to the ED. in the ED workup unrevealing for acute etiology however when patient ambulated O2 sats dropped to 85% and hospitalist contacted for admission. Patient evaluated at bedside and reports she chronically has problems with shortness of breath on exertion that is managed with a daily inhaler and as needed albuterol before working out but today that she noted shortness of breathwhen she was running errands and her heart racing which was out of the ordinary for her, has been on Bactrim since 06/07 after she had a runny nose and nasal congestion and then developed throat soreness and was having green nasal discharge, symptoms have been improving with Bactrim but she reports she has been having some burning in her stomach and nausea for the past 4 days and some loose stool since the start of this as well. Additionally has chronic tremor that has been worsened recently but will be seeing neurology for this in August. She reports many stressors in the past year with her and multiple other family members dying is very concerned about her health and what could be going on at this time. Patient has not felt her heart racing since being in the ED and breathing feeling better just sitting there but discussed her hypoxia and patient agreeable to admission. [facility] Medical History (Updated 06/13/23 @ 16:09 by NADINE Acosta) Acute bronchitis Acute pain of both ears Atypical chest pain Basal cell carcinoma (BCC) Bruises easily COPD (chronic obstructive pulmonary disease) Cough Dyspnea on exertion Fatigue Fibromyalgia GERD (gastroesophageal reflux disease) Hearing loss Hemangioma Hoarseness Hyperlipidemia Hypothyroidism IBS (irritable bowel syndrome) Itching Keratosis Kidney stone Lentigo Migraines mohs procedure Oral thrush Other specified disorder of gallbladder Pernicious anemia PND (post-nasal drip) Pulmonary nodule rib removal Squamous cell carcinoma Tobacco dependence in remission Home Medications atorvastatin 10 mg tablet 10 mg PO DAILY 08/08/14 [History Last Taken 06/12/23] biotin 10,000 mcg capsule 5,000 mcg PO DAILY 08/08/14 [History Last Taken Unknown] folic acid 1 mg tablet 1 mg PO DAILY 08/08/14 [History Last Taken 06/12/23] polyethylene glycol 3350 17 gram/dose oral powder 17 g PO DAILY 08/08/14 [History Last Taken 06/12/23] umeclidinium 62.5 mcg/actuation blister powder for inhalation (Incruse Ellipta) 1 inh inhalation Q24H COPD J44.9 #3 device 09/23/22 [Rx Last Taken 06/13/23] albuterol sulfate 90 mcg/actuation aerosol inhaler (Ventolin HFA) 2 puff inhalation Q6H PRN shortness of breath or wheezing #1 device 10/26/22 [Rx Last Taken Unknown] aspirin 81 mg tablet,delayed release 81 mg PO DAILY 04/14/23 [History Last Taken 06/12/23] levothyroxine 50 mcg tablet 75 mcg PO DAILY 04/14/23 [History Last Taken 06/13/23] sulfamethoxazole 800 mg-trimethoprim 160 mg tablet (Bactrim DS) 1 tab PO BID #20tabs 06/07/23 [Rx Last Taken 06/13/23] cyanocobalamin (vitamin B-12) 1,000 mcg/mL injection solution (Dodex) 1,000 mcg IM QMONTH 06/13/23 [History Last Taken 05/16/23] glycerin-mineral oil-polycarbophil vaginal gel (Feminine Moisturizer and Lubricating(glyc-mnOil) vaginal gel) 1 ea vaginal .COMPLEX 06/13/23 [History Last Taken 06/12/23] minoxidil 5 % topical foam (Daylogic Minoxidil) 1 ea topical DAILY 06/13/23 [History Last Taken 06/12/23] Allergy/AdvReac Type Severity Reaction Status Date / Time metaxalone [From Skelaxin] Allergy Severe palpitations, Verified 06/13/23 12:49 tachycardia and itching adhesive Allergy NEEDS Verified 06/13/23 12:49 FOLLOW-UP amoxicillin trihydrate Allergy Unknown Verified 06/13/23 12:49 [From Augmentin] bacitracin [From Polysporin] Allergy Unknown Verified 06/13/23 12:49 polymyxin B sulfate Allergy Unknown Verified 06/13/23 12:49 [From Polysporin] potassium clavulanate Allergy Unknown Verified 06/13/23 12:49 [From Augmentin] propoxyphene napsylate AdvReac Nausea/Vom/ Verified 06/13/23 12:49 [From Darvocet-N 100] Diarrhea Family History (Updated 04/14/23 @ 13:32 by Marilu Duffy) Brother Cancer CAD (coronary artery disease) Heart disease Thyroid disorder Hypertension Father Myocardial infarction Heart disease Hypertension Seizures Sister Heart disease Hypertension Thyroid disorder Surgical History H/O cataract removal with insertion of prosthetic lens H/O foot surgery H/O lithotripsy History of appendectomy History of hysterectomy History of vitrectomy Hx laparoscopic cholecystectomy S/P Mohs surgery for basal cell carcinoma S/P tonsillectomy and adenoidectomy Social History Smoking Status: Former smoker second hand exposure: Yes alcohol intake: never substance use type: does not use ROS ROS Narrative General: Denies fever/chills HENT: Denies headache, has had nasal congestion with green drainage and sore throat improving on Bactrim EYES: Denies changes in vision Resp: No change in cough and had been fairly at baseline from a breathing perspective until today Cardiac: Denies chest pain but did feel like her heart was racing GI: Denies abdominal pain, has had some loose stool and some epigastric burning since being on Bactrim : Denies changes in urination Extremity: Denies swelling MSK: Denies weakness Neuro: Has chronic problems with neuropathy and chronic tremor Heme: Denies any bleeding or bruising Skin: Has chronic, patient takes minoxidil Psychiatric: No complaints voiced Vital Signs Vital Signs Vital Signs: 06/13/23 12:47 06/13/23 13:10 06/13/23 13:32 Temperature 98.2 F Temperature Source Temporal Pulse Rate 101 H Respiratory Rate 16 Respiratory Effort Normal Non-Labored Respiratory Depth Normal Respiratory Pattern Normal Blood Pressure 159/87 H Blood Pressure Mean 111 Pulse Ox 98 Oxygen Delivery Method Room Air Room Air Room Air 06/13/23 14:00 06/13/23 15:00 Temperature Temperature Source Pulse Rate 74 70 Respiratory Rate 15 17 Respiratory Effort Respiratory Depth Respiratory Pattern Blood Pressure 117/70 108/60 Blood Pressure Mean 85 76 Pulse Ox 93 93 Oxygen Delivery Method Weight Weight: 61.32 kg Body Mass Index (BMI) 23.2 Physical Exam Narrative General: Alert, oriented, no apparent distress HEENT: Atraumatic, normocephalic Eyes: Anicteric, normal conjunctiva, extraocular movements grossly intact Neck: Supple Respiratory: Somewhat diminished at the bases, normal respiratory effort Cardiovascular: Regular rate and rhythm GI: Soft, nontender, nondistended Extremities: No edema Musculoskeletal: Moving all extremities Neuro: No overt focal neurological deficits Skin: No rashes appreciated Psych: Cooperative Results Lab / Micro Data 06/13/23 13:40 06/13/23 13:40 Labs: Laboratory Results - last 24 hr 06/13/23 13:40: WBC 7.7, RBC 4.78, Hgb 13.7, Hct 43.0, MCV 90.0, MCH 28.7, MCHC 31.9 L, RDW Std Deviation 43.2, RDW Coeff of Gildardo 13.0, Plt Count 325, MPV 10.2, Immature Gran % (Auto) 0.300, Neut % (Auto) 81.3 H, Lymph % (Auto) 11.5 L, [place] % (Auto) 5.6, Eos % (Auto) 0.8, Baso % (Auto) 0.5, Absolute Neuts (auto) 6.2, Absolute Lymphs (auto) 0.88, Nucleated RBC % 0, D-Dimer Quant (PE/DVT) 0.53 H*, Sodium 135 L, Potassium 4.1, Chloride 102, Carbon Dioxide 25.0, Anion Gap 8, BUN17, Creatinine 1.28 H, Estim Creat Clear Calc 31.78, Est GFR (MDRD) Af Amer 52 L, Est GFR (MDRD) Non-Af 43 L, BUN/Creatinine Ratio 13.3, Glucose 115 H, Calcium 9.8, Troponin I High Sens 11, B-Natriuretic Peptide 48.9 Micro: Microbiology 06/13/23 13:40 Mucosa - Nose SARS-CoV-2, Influenza & RSV (PCR) - Final Imaging Radiology Impression Chest X-Ray 06/13/23 14:08 IMPRESSION: Hyperinflation. COPD. Stable examination. Electronically Signed: Audie Ramires MD at 14:33 EST , Chest CTA 06/13/23 15:10 IMPRESSION: No evidence of pulmonary embolism. Hyperinflation and diffuse emphysematous changes with bullous formation more prominent in the upper lobes. Electronically Signed: Audie Ramires MD at 15:46 EST , Assessment & Plan Assessment/Plan (1) Hypoxia: (2) Hypothyroidism: (3) History of COPD: (4) GERD (gastroesophageal reflux disease): (5) Acute dyspnea: PLAN: Plan #Hypoxia and SOB w/ hx chronic COPD and chronic heart failure with preserved ejection fraction -CTA negative for PE -COVID/RSV/FLU negative -Will check resp panel -Trop wnl, bnp wnl -Last echo 01/2023 with stage II diastolic dysfunction and PASP of 28 -Follows with pulmonology for her COPD -Last pulmonary function tests in 2018 with irreversible moderately severe largeairway obstructive ventilatory defect with hyperinflation, air trapping, and reduction in diffusing capacity -Will treat with nebs, as needed albuterol -Somewhat diminished air movement at the bases so query if this could be COPD related, will start on oral steroids -Patient has been on Bactrim but has been having epigastric burning and loose stools with this, will switch to Levaquin -Incentive spirometry, daily weights, I's and O's #CKDIIIa -Slightly up from baseline but minimally and may be secondary to Bactrim -Received some fluids in the ED, monitor I's and O's #Hypothyroidism -Continue Home medication #Epigastric burning -When taking bactrim -Changing abx -Also has listed hx of GERD, will start on Short-term PPI to assess for efficacy #Sinus infection -As above, abx adjusted #Chronic familial tremor -Has felt it was somewhat worse recently, will follow with her neurologist in August # Chronic alopecia -Uses topical minoxidil at home for this #DVT ppx: Lovenox subcu Emperatriz Zamorano MD Time spent in the patient's overall evaluation,decision-making process, review of diagnostic data, adjustment of management, discussion with other providers, nursing nursing and ancillary staff involved in patient's care documentation, 59minutes Charges/Coding Visit Charges Inpatient E&M: 02398 Init Hosp L2 06/13/23 1706 <Electronically signed by Emperatriz Zamorano MD> Cosigner Signature (if applicable): CC: Dr. Alyce Cantrell MD; Dr. Emperatriz Zamorano MD~ Signed [facility] Work Phone: Consult note Author Sindy Murray [facility] June 15, 2023 12:13pm Note Date/Time June 15, 2023 1 2:13pm [facility] Medical Records Department [address] [place] [address] Counseling Note - Pharmacy 06/15/23 1212 MR#: [id number] Acct: [id number] Name: CHERIE JIMENEZ Rep #:[id number] : 1945 77 From: Sindy Murray PCP: Dr. Alyce Cantrell MD Status:ADM IN Y Location: [place] [address] Pharmacy [facility] has performed discharge medication reconciliation and counseling for this patient. 1. LEVOFLOXACIN 750MG PO Q48H X 3 DOSES 2. PANTOPRAZOLE 40MG PO DAILY 3. PREDNISONE 40MG PO BREAKFAST X 5 DAYS The patient's discharge medication list was reviewed for discrepancies and discrepancies were resolved. The patient was counseled on the following discharge medications and changes in medications for homegoing were reviewed. The Reason for Use, instructions for use, and potential side effects were reviewed for all new medications. The patient's questions regarding all of their medications were answered. The patient was able to verbally demonstrate an understanding of their dischargemedications. Medications at Discharge Home Medications atorvastatin 10 mg tablet 10 mg PO DAILY 08/08/14 biotin 10,000 mcg capsule 5,000 mcg PO DAILY 08/08/14 folic acid 1 mg tablet 1 mg PO DAILY 08/08/14 polyethylene glycol 3350 17 gram/dose oral powder 17 g PO DAILY 08/08/14 umeclidinium 62.5 mcg/actuation blister powder for inhalation (Incruse Ellipta) 1 inh inhalation Q24H COPD J44.9 #3 device 09/23/22 albuterol sulfate 90 mcg/actuation aerosol inhaler (Ventolin HFA) 2 puff inhalation Q6H PRN shortness of breath or wheezing #1 device 10/26/22 aspirin 81 mg tablet,delayed release 81 mg PO DAILY 04/14/23 levothyroxine 50 mcg tablet 75 mcg PO DAILY 04/14/23 cyanocobalamin (vitamin B-12) 1,000 mcg/mL injection solution (Dodex) 1,000 mcg IM QMONTH 06/13/23 glycerin-mineral oil-polycarbophil vaginal gel (Feminine Moisturizer and Lubricating(glyc-mnOil) vaginal gel) 1 ea vaginal .COMPLEX 06/13/23 minoxidil 5 % topical foam (Daylogic Minoxidil) 1 ea topical DAILY 06/13/23 levofloxacin 750 mg tablet 750 mg PO Q48 3 days #3 tabs 06/15/23 pantoprazole 40 mg tablet,delayed release 40 mg PO DAILY 30 days #30 tabs 06/15/23 prednisone 20 mg tablet 40 mg (2 x 20 mg) PO DAILY@0800 5 days #10 tabs 06/15/23 06/15/23 1213 <Electronically signed by Sindy Murray> Date _ Sindy Murray Cosigner Signature (if applicable): Date CC: ~ Signed [facility] Work Phone: Discharge summary Author Florentino Renee [facility] June 15, 2023 11:22am Note Date/Time June 15, 2023 1 1:19am [facility] Medical Records Department [address] [place] [id number] Instructions for Home/Discharge Instructions 06/15/23 1119 MR#: [id number] Acct: [id number] Name: CHERIE JIMENEZ Rep #:[id number] : 1945 77 From: Florentino childress MD PCP: Dr. Alyce Cantrell MD Status:ADM IN Discharge Instructions Diet Discharge Diet: Low fat / Low cholesterol Activity Discharge Activity: Return to Normal Activity Dressing / Incision Call your doctor if you observe: Fever of 101 or Higher, Shortness of breath, Dizziness, Fainting spells, Swelling in the ankles, Chest pain and Increased palpitations (irregular heartbeat) Follow Up Care Test Results: Test results from this visit will be discussed in further detail at your follow- up appointment, if applicable. Discharge Plan Admission Admit Date/Time: 06/13/23 16:52 Attending Provider: Florentino Renee Primary Care Provider: Alyce Cantrell Consulting Providers: Emperatriz Zamorano Discharge Orders/Prescriptions Prescriptions: New prednisone 20 mg Tablet 40 mg PO DAILY@0800 5 Days Qty: 10 0RF pantoprazole 40 mg Tablet,Delayed Release (Dr/Ec) 40 mg PO DAILY 30 Days Qty: 30 0RF levofloxacin 750 mg Tablet 750 mg PO Q48 3 Days Qty: 3 0RF Continued aspirin 81 mg tablet,delayed release (DR/EC) 81 mg PO DAILY atorvastatin 10 mg tablet 10 mg PO DAILY Patient Comments: once a day biotin 10,000 MCG capsule 5,000 mcg PO DAILY folic acid 1 mg tablet 1 mg PO DAILY Patient Comments: once a day polyethylene glycol 3350 17 gram/dose powder 17 g PO DAILY Patient Comments: as needed levothyroxine 50 mcg tablet 75 mcg PO DAILY Fem Moist andLub(glyc-min oil) Gel 1 ea vaginal .COMPLEX Rx Instructions: USES EVERY 3 DAYS minoxidil [Daylogic Minoxidil] 5 % foam 1 ea topical DAILY cyanocobalamin (vitamin B-12) [Dodex] 1,000 mcg/mL solution 1,000 mcg IM QMONTH Incruse Ellipta 62.5 mcg/actuation blister with device 1 inh INHALATION Q24H Qty: 3 3RF albuterol sulfate [Ventolin HFA] 90 mcg/actuation HFA aerosol inhaler 2 puff INHALATION Q6H PRN (Reason: shortness of breath or wheezing) Qty: 1 3RF Discontinued sulfamethoxazole-trimethoprim [Bactrim DS] 800-160 mg tablet 1 tab PO BID Qty: 20 0RF Referrals / Follow Up: Alyce Cantrell MD [Primary Care Provider] - 06/21/23 8:10 am Disposition Disposition (needs filled in before D/C Order can be placed): Home, Self Care 06/15/23 1122<Electronically signed by Florentino Renee MD>Florentino Renee MD CC: Dr. Alyce Cantrell MD; Dr. Emperatriz Zamorano MD ~ Signed [facility] Work Phone: Discharge summary Author Florentino Renee [facility] June 15, 2023 12:45pm Note Date/Time June 15, 2023 1 2:46pm [facility] Medical Records Department [address] [place] [address] Discharge Summary 06/15/23 1242 MR#: [id number] Acct: [id number] Name: CHERIE JIMENEZ Rep #:[id number] : 1945 77 From: Florentino childress MD PCP: Dr. Alyce Cantrell MD Status:ADM IN Location: [place] [address] Providers Date of Admission: 06/13/23 Primary Care Physician: Dr. Alyce Cantrell MD Reason For Visit: SOB AND HYPOXIA Diagnosis Discharge Diagnosis (1) Hypoxia: Status: Acute Code(s): R09.02 - Hypoxemia (2) Hypothyroidism: Status: Chronic Code(s): E03.9 - Hypothyroidism, unspecified (3) History of COPD: Status: Chronic Code(s): Z87.09 - Personal history of other diseases of the respiratory system (4) GERD (gastroesophageal reflux disease): Status: Chronic Code(s): K21.9 - Gastro-esophageal reflux disease without esophagitis (5) Acute dyspnea: Status: Acute Code(s): R06.00 - Dyspnea, unspecified Medications at Discharge Home Medications atorvastatin 10 mg tablet 10 mg PO DAILY 08/08/14 biotin 10,000 mcg capsule 5,000 mcg PO DAILY 08/08/14 folic acid 1 mg tablet 1 mg PO DAILY 08/08/14 polyethylene glycol 3350 17 gram/dose oral powder 17 g PO DAILY 08/08/14 umeclidinium 62.5 mcg/actuation blister powder for inhalation (Incruse Ellipta) 1 inh inhalation Q24H COPD J44.9 #3 device 09/23/22 albuterol sulfate 90 mcg/actuation aerosol inhaler (Ventolin HFA) 2 puff inhalation Q6H PRN shortness of breath or wheezing #1 device 10/26/22 aspirin 81 mg tablet,delayed release 81 mg PO DAILY 04/14/23 levothyroxine 50 mcg tablet 75 mcg PO DAILY 04/14/23 cyanocobalamin (vitamin B-12) 1,000 mcg/mL injection solution (Dodex) 1,000 mcg IM QMONTH 06/13/23 glycerin-mineral oil-polycarbophil vaginal gel (Feminine Moisturizer and Lubricating(glyc-mnOil) vaginal gel) 1 ea vaginal .COMPLEX 06/13/23 minoxidil 5 % topical foam (Daylogic Minoxidil) 1 ea topical DAILY 06/13/23 levofloxacin 750 mg tablet 750 mg PO Q48 3 days #3 tabs 06/15/23 pantoprazole 40 mg tablet,delayed release 40 mg PO DAILY 30 days #30 tabs 06/15/23 prednisone 20 mg tablet 40 mg (2 x 20 mg) PO DAILY@0800 5 days #10 tabs 06/15/23 Hospital Course Operations None Procedures 2-D Echocardiogram Summary of Care Provided Minutes Spent on Discharge: 36 Hospital Course: Per HPI: CHERIE JIMENEZ, is a 77F with past history of smoking tobacco, COPD, hypertension, hypothyroidism, hyperlipidemia, fibromyalgia who presents to the emergency department for feeling of shortness of breath, palpitations. She has been sick for about 2 weeks and returned home from [place] on June 04. Is currently on Bactrim for sinus infection. Today was running errands and felt her heart was racing that she was short of breath and she called her PCP who sent her to the ED. in the ED workup unrevealing for acute etiology however whenpatient ambulated O2 sats dropped to 85% and hospitalist contacted for admission. Patient evaluated at bedside and reports she chronically has problems with shortness of breath on exertion that is managed with a daily inhaler and as needed albuterol before working out but today that she noted shortness of breath when she was running errands and her heart racing which was out of the ordinary for her, has been on Bactrim since 06/07 after she had a runny nose and nasal congestion and then developed throat soreness and was having green nasal discharge, symptoms have been improving with Bactrim but she reports she has been having some burning in her stomach and nausea for the past 4 days and some loose stool since the start of this as well. Additionally has chronic tremor that has been worsened recently but will be seeing neurology for this in August. She reports many stressors in the past year with her andmultiple other family members dying is very concerned about her health and what could be going on at this time. Patient has not felt her heart racing since being in the ED and breathing feeling better just sitting there but discussed her hypoxia and patient agreeable to admission. Hospital Course: 1. Shortness of breath with transient hypoxia secondary to COPD exacerbation from and upper respiratory infection?77-year-old female with a history of COPD presented to the hospital with shortness of breath. This was preceded by an episode of an upper respiratory infection potentially converted to a bacterial sinus infection. She was initially started on Bactrim as an outpatient but was developing some epigastric abdominal burning with this so she was transition to Levaquin. She was also started on steroids and was able to return to room air fairly quickly. She tested negative for COVID, RSV, and flu but she did better with the steroids and breathing treatments. There is also some concern for possible heart failure exacerbation so an echo was performed which showed that her stage II diastolic dysfunction that was seen in January was rated as a stage I diastolic dysfunction on this admission. Therefore I do not think that she had heart failure exacerbation at all. CT of the chest on admission was negative for PE or any signs of pneumonia. She did amatory pulse ox today and did not require any oxygen. I discussed with her the plan for discharge she expressed understanding the risk benefits going home and would like to go home today. 2. Hyperlipidemia, CKD 3A, hypothyroidism, chronic familial tremor, IBS, fibromyalgia, chronic diastolic dysfunction are all chronic medical conditions which complicate her care. Her home medications were continued where appropriate Physical Exam Narrative General: Alert, Oriented x3, Cooperative, No apparent distress HEENT: Atraumatic, PERRLA, EOMI, Normocephalic Oral: Moist Mucosa Neck: Supple, No JVD Lungs: Diminished, Normal air movement, No rhonchi, No wheeze, no rales Cardiovascular: Regular rate, Regular Rhythm, Normal S1, Normal S2, No murmurs Abdomen: Soft, Non Tender, Non-Distended, No Hepato-splenomegaly Extremities: No edema, Capillary Refill Less than 3 Seconds Skin: No rashes, No breakdown Musculoskeletal: No Tenderness to Palpation of Joints or Extremities Neurological: Cranial nerves II-XII grossly intact, Motor Exam 5/5 strength throughout, Sensory exam intact to light touch and pain Psych/Mental Status: Normal Affect, Appropriate Weight / BMI Weight Weight: 134 lb 7.712 oz Body Mass Index (BMI) 23.1 ABG / Lab / Microbiology Data 06/14/23 07:51 06/14/23 07:51 Microbiology: Microbiology 06/13/23 19:40 Mucosa - Nasopharyngeal Respiratory Panel (PCR) - Final 06/13/23 13:40 Mucosa - Nose SARS-CoV-2, Influenza & RSV (PCR) - Final D/C Instructions Discharge Diet: Low fat / Low cholesterol Call your doctor if you observe: Fever of 101 or Higher, Shortness of breath, Dizziness, Fainting spells, Swelling in the ankles, Chest pain and Increased palpitations (irregular heartbeat) Meaningful Use Info Meaningful Use Diagnoses (Choose all that apply): None applicable Discharge Plan Admission Admit Date/Time: 06/13/23 16:52 Attending Provider: Florentino Renee Primary Care Provider: Alyce Cantrell Consulting Providers: Emperatriz Zamorano Discharge Orders/Prescriptions Prescriptions: New prednisone 20 mg Tablet 40 mg PO DAILY@0800 5 Days Qty: 10 0RF pantoprazole 40 mg Tablet,Delayed Release (Dr/Ec) 40 mg PO DAILY 30 Days Qty: 30 0RF levofloxacin 750 mg Tablet 750 mg PO Q48 3 Days Qty: 3 0RF Continued aspirin 81 mg tablet,delayed release (DR/EC) 81 mg PO DAILY atorvastatin 10 mg tablet 10 mg PO DAILY Patient Comments: once a day biotin 10,000 MCG capsule 5,000 mcg PO DAILY folic acid 1 mg tablet 1 mg PO DAILY Patient Comments: once a day polyethylene glycol 3350 17 gram/dose powder 17 g PO DAILY Patient Comments: as needed levothyroxine 50 mcg tablet 75 mcg PO DAILY Fem Moist andLub(glyc-min oil) Gel 1 ea vaginal .COMPLEX Rx Instructions: USES EVERY 3 DAYS minoxidil [Daylogic Minoxidil] 5 % foam 1 ea topical DAILY cyanocobalamin (vitamin B-12) [Dodex] 1,000 mcg/mL solution 1,000 mcg IM QMONTH Incruse Ellipta 62.5 mcg/actuation blister with device 1 inh INHALATION Q24H Qty: 3 3RF albuterol sulfate [Ventolin HFA] 90 mcg/actuation HFA aerosol inhaler 2 puff INHALATION Q6H PRN (Reason: shortness of breath or wheezing) Qty: 1 3RF Discontinued sulfamethoxazole-trimethoprim [Bactrim DS] 800-160 mg tablet 1 tab PO BID Qty: 20 0RF Referrals / Follow Up: Alyce Cantrell MD [Primary Care Provider] - 06/21/23 8:10 am Disposition Disposition (needs filled in before D/C Order can be placed): Home, Self Care Charges/Coding Visit Charges Inpatient E&M: 61338 Disch Hosp >30min 06/15/23 1245 <Electronically signed by Florentino Renee MD> Cosigner Signature (if applicable): CC: Dr. Alyce Cantrell MD; Dr. 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 [facility] Work Phone: evaluation note* Diagnosis Onset Date Resolution Status Screening for intestinal cancer acute Acute dyspnea acute Hypoxia acute Dyspnea on exertion chronic GERD (gastroesophageal reflux disease) chronic History of COPD chronic Hypothyroidism chronic [facility] Work Phone: Evaluation note* Diagnosis Onset Date Resolution Status Screening for intestinal cancer acute Acute dyspnea acute Dyspnea on exertion chronic GERD (gastroesophageal reflux disease) chronic History of COPD chronic Hypothyroidism chronic Hypoxia resolved [facility] Work Phone: evaluation note* Diagnosis Small fiber neuropathy- Primary Unspecified hereditary and idiopathic peripheral neuropathy MGUS (monoclonal gammopathy of unknown significance) Monoclonal [facility]rote[facility] Pain in joint, multiple sites- Primary Small fiber neuropathy Unspecified hereditary and idiopathic peripheral neuropathy DDD (degenerative disc disease), lumbar Degeneration of lumbar or lumbosacral intervertebral disc Trochanteric bursitis of both hips Enthesopathy of hip region Pain in joint, multiple sites [facility] Diagnosis Pain in joint, multiple sites [facility] Diagnosis Positive RANDELL (antinuclear antibody)- Primary Other and unspecified nonspecific immunological findings Pain in joint, multiple sites Small fiber neuropathy Unspecified hereditary and idiopathic peripheral neuropathy Hypercalcemia [facility] Diagnosis Positive RANDELL (antinuclear antibody)- Primary Other and unspecified nonspecific immunological findings Hyperparathyroidism (HCC) Hyperparathyroidism, unspecified Trochanteric bursitis of left hip Enthesopathy of hip region Malaise and fatigue Other malaise and fatigue Cold intolerance Other general symptoms Small fiber neuropathy Unspecified hereditary and idiopathic peripheral neuropathy [facility]* Diagnosis Hyperparathyroidism (HCC)- Primary Hyperparathyroidism, unspecified documented in this encounter [facility] note* Diagnosis Trochanteric bursitis of left hip Enthesopathy of hip region documented in this encounter [facility] note* Diagnosis Hyperparathyroidism (HCC) Hyperparathyroidism, unspecified Hyperparathyroidism (HCC) Hyperparathyroidism, unspecified documented in this encounter [facility] note* Diagnosis Hyperparathyroidism (HCC) Hyperparathyroidism, unspecified Hyperparathyroidism (HCC) Hyperparathyroidism, unspecified documented in this encounter [facility] note* Diagnosis Pre-op evaluation- Primary Preoperative examination, unspecified Hypothyroidism, unspecified type Hyperlipidemia, unspecified hyperlipidemia type Hyperparathyroidism (HCC) Hyperparathyroidism, unspecified History of stroke Transient ischemic attack (TIA), and cerebral infarction without residual deficits Peripheral polyneuropathy Unspecified hereditary and idiopathic peripheral neuropathy Tremor Abnormal involuntary movements Fibromyalgia Mylagia and myositis, unspecified Chronic obstructive pulmonary disease, unspecified COPD type (HCC) PVC (premature ventricular contraction) Other premature beats Irritable bowel syndrome with constipation Irritable bowel syndrome Pernicious anemia Colitis Other and unspecified noninfectious gastroenteritis and colitis History of kidney stones Personal history of urinary calculi Post-operative nausea and vomiting Nausea with vomiting [place] (hard of hearing) Unspecified hearing loss Hyperparathyroidism (HCC) Hyperparathyroidism, unspecified * Assessment & Plan Note - Christa Angelo APRN.CNP - 09/26/2024 10:29 AM EDT Associated Problem(s): [place] (hard of hearing) Assessment: speech recognitions. * Assessment & Plan Note - Christa Angelo APRN.CNP - 09/26/2024 10:22 AM EDT Associated Problem(s): Post-operative nausea and vomiting Assessment: in the past. * Assessment & Plan Note - Christa Angelo APRN.CNP - 09/26/2024 10:22 AM EDT Associated Problem(s): History of kidney stones Assessment: required lithotripsy. * Assessment & Plan Note - Christa Angelo APRN.CNP - 09/26/2024 10:19 AM EDT Associated Problem(s): Colitis Assessment: 2011 ischemic bowel, another flare up August 2024 with extreme diarrhea. * Assessment & Plan Note - Christa Angelo APRN.CNP - 09/26/2024 10:18 AM EDT Associated Problem(s): Pernicious anemia Assessment: on B injections. Has been stable. Latest Reference Range & Units 06/27/24 14:54 07/25/24 07:46 Hemoglobin 11.5 - 15.5 g/dL 14.8 15.1 * Assessment & Plan Note - Christa Angelo APRN.CNP - 09/26/2024 10:15 AM EDT Associated Problem(s): Irritable bowel syndrome with constipation Assessment: miralax daily. * Assessment & Plan Note - Christa Angelo APRN.CNP - 09/26/2024 10:14 AM EDT Associated Problem(s): PVC (premature ventricular contraction) Assessment: on metoprolol, from er with c/o sob. Saw cardiology and had stress + 24 hour hour holter monitor. No s/s since. * Assessment & Plan Note - Christa Angelo APRN.CNP - 09/26/2024 10:11 AM EDT Associated Problem(s): COPD (chronic obstructive pulmonary disease) ([facility]) Assessment: incruise ellitpta daily. Albuterol PRN prior to work outs or exercise. Quit smoking 9 years ago. * Assessment & Plan Note - Christa Angelo APRN.CNP - 09/26/2024 10:10 AM EDT Associated Problem(s): Fibromyalgia Assessment: Dx 1979. No medications needed. * Assessment & Plan Note - Christa Angelo APRN.CNP - 09/26/2024 10:09 AM EDT Associated Problem(s): Tremor Assessment: family tremor Left > right. Father, brother x2, sister also have it. 6 children total, 4 have it. * Assessment & Plan Note - Christa Angelo APRN.CNP - 09/26/2024 10:07 AM EDT Associated Problem(s): Peripheral neuropathy Assessment: into hands and up forearm, feet part way up to knees. Monitored by neurology. * Assessment & Plan Note - Christa Angelo APRN.CNP - 09/26/2024 10:06 AM EDT Associated Problem(s): History of stroke Assessment: small stroke 2022. Had vision changes, went to ophthalmology and referred to neuro. Testing done and place on Plaxis for short time. Now no residual effects. * Assessment & Plan Note - Christa Angelo APRN.CNP - 09/25/2024 10:51 AM EDT Associated Problem(s): HLD (hyperlipidemia) Assessment: on po lipitor * Assessment & Plan Note - Christa Angelo APRN.CNP - 09/25/2024 10:48 AM EDT Associated Problem(s): Hypothyroid Assessment: on daily synthroid. Monitored by Dr Mejía. [facility] Pre-op evaluation- Primary Preoperative examination, unspecified Hypothyroidism, unspecified type Hyperlipidemia, unspecified hyperlipidemia type Hyperparathyroidism (HCC) Hyperparathyroidism, unspecified History of stroke Transient ischemic attack (TIA), and cerebral infarction without residual deficits Peripheral polyneuropathy Unspecified hereditary and idiopathic peripheral neuropathy Tremor Abnormal involuntary movements Fibromyalgia Mylagia and myositis, unspecified Chronic obstructive pulmonary disease, unspecified COPD type (HCC) PVC (premature ventricular contraction) Other premature beats Irritable bowel syndrome with constipation Irritable bowel syndrome Pernicious anemia Colitis Other and unspecified noninfectious gastroenteritis and colitis History of kidney stones Personal history of urinary calculi Post-operative nausea and vomiting Nausea with vomiting [place] (hard of hearing) Unspecified hearing loss Hyperparathyroidism (HCC)- Primary Hyperparathyroidism, unspecified documented in this [facility] Author Emperatriz Zamorano [facility] June 13, 2023 5:06pm Note Date/Time June 13, 2023 5 :06pm [facility] Medical Records Department [facility] [place] [address] H&P Exam - Hospitalist 06/13/23 1659 MR#: [id number] Acct: [id number] Name: CHERIE JIMENEZ Rep #:[id number] : 1945 77 From: Emperatriz Zamorano MD PCP: Dr. Alyce Cantrell MD Status:ADM IN Location: [facility] [id number] HPI - General General Date of Admission: 06/13/23 Date of Service: 06/13/23 Chief Complaint: SOB and palpitations HPI Narrative CHERIE JIMENEZ, is a 77F with past history of smoking tobacco, COPD, hypertension, hypothyroidism, hyperlipidemia, fibromyalgia who presents to the emergency department for feeling of shortness of breath, palpitations. She has been sick for about 2 weeks and returned home from [place] on June 04. Is currently onBactrim for sinus infection. Today was running errands and felt her heart was racing that she was short of breath and she called her PCP who sent her to the ED. in the ED workup unrevealing for acute etiology however when patient ambulated O2 sats dropped to 85% and hospitalist contacted for admission. Patient evaluated at bedside and reports she chronically has problems with shortness of breath on exertion that is managed with a daily inhaler and as needed albuterol before working out but today that she noted shortness of breathwhen she was running errands and her heart racing which was out of the ordinary for her, has been on Bactrim since 06/07 after she had a runny nose and nasal congestion and then developed throat soreness and was having green nasal discharge, symptoms have been improving with Bactrim but she reports she has been having some burning in her stomach and nausea for the past 4 days and some loose stool since the start of this as well. Additionally has chronic tremor that has been worsened recently but will be seeing neurology for this in August. She reports many stressors in the past year with her and multiple other family members dying is very concerned about her health and what could be going on at this time. Patient has not felt her heart racing since being in the ED and breathing feeling better just sitting there but discussed her hypoxia and patient agreeable to admission. [facility] Medical History (Updated 06/13/23 @ 16:09 by NADINE Acosta) Acute bronchitis Acute pain of both ears Atypical chest pain Basal cell carcinoma (BCC) Bruises easily COPD (chronic obstructive pulmonary disease) Cough Dyspnea on exertion Fatigue Fibromyalgia GERD (gastroesophageal reflux disease) Hearing loss Hemangioma Hoarseness Hyperlipidemia Hypothyroidism IBS (irritable bowel syndrome) Itching Keratosis Kidney stone Lentigo Migraines mohs procedure Oral thrush Other specified disorder of gallbladder Pernicious anemia PND (post-nasal drip) Pulmonary nodule rib removal Squamous cell carcinoma Tobacco dependence in remission Home Medications atorvastatin 10 mg tablet 10 mg PO DAILY 08/08/14 [History Last Taken 06/12/23] biotin 10,000 mcg capsule 5,000 mcg PO DAILY 08/08/14 [History Last Taken Unknown] folic acid 1 mg tablet 1 mg PO DAILY 08/08/14 [History Last Taken 06/12/23] polyethylene glycol 3350 17 gram/dose oral powder 17 g PO DAILY 08/08/14 [History Last Taken 06/12/23] umeclidinium 62.5 mcg/actuation blister powder for inhalation (Incruse Ellipta) 1 inh inhalation Q24H COPD J44.9 #3 device 09/23/22 [Rx Last Taken 06/13/23] albuterol sulfate 90 mcg/actuation aerosol inhaler (Ventolin HFA) 2 puff inhalation Q6H PRN shortness of breath or wheezing #1 device 10/26/22 [Rx Last Taken Unknown] aspirin 81 mg tablet,delayed release 81 mg PO DAILY 04/14/23 [History Last Taken 06/12/23] levothyroxine 50 mcg tablet 75 mcg PO DAILY 04/14/23 [History Last Taken 06/13/23] sulfamethoxazole 800 mg-trimethoprim 160 mg tablet (Bactrim DS) 1 tab PO BID #20tabs 06/07/23 [Rx Last Taken 06/13/23] cyanocobalamin (vitamin B-12) 1,000 mcg/mL injection solution (Dodex) 1,000 mcg IM QMONTH 06/13/23 [History Last Taken 05/16/23] glycerin-mineral oil-polycarbophil vaginal gel (Feminine Moisturizer and Lubricating(glyc-mnOil) vaginal gel) 1 ea vaginal .COMPLEX 06/13/23 [History Last Taken 06/12/23] minoxidil 5 % topical foam (Daylogic Minoxidil) 1 ea topical DAILY 06/13/23 [History Last Taken 06/12/23] Allergy/AdvReac Type Severity Reaction Status Date / Time metaxalone [From Skelaxin] Allergy Severe palpitations, Verified 06/13/23 12:49 tachycardia and itching adhesive Allergy NEEDS Verified 06/13/23 12:49 FOLLOW-UP amoxicillin trihydrate Allergy Unknown Verified 06/13/23 12:49 [From Augmentin] bacitracin [From Polysporin] Allergy Unknown Verified 06/13/23 12:49 polymyxin B sulfate Allergy Unknown Verified 06/13/23 12:49 [From Polysporin] potassium clavulanate Allergy Unknown Verified 06/13/23 12:49 [From Augmentin] propoxyphene napsylate AdvReac Nausea/Vom/ Verified 06/13/23 12:49 [From Darvocet-N 100] Diarrhea Family History (Updated 04/14/23 @ 13:32 by Marilu Duffy) Brother Cancer CAD (coronary artery disease) Heart disease Thyroid disorder Hypertension Father Myocardial infarction Heart disease Hypertension Seizures Sister Heart disease Hypertension Thyroid disorder Surgical History H/O cataract removal with insertion of prosthetic lens H/O foot surgery H/O lithotripsy History of appendectomy History of hysterectomy History of vitrectomy Hx laparoscopic cholecystectomy S/P Mohs surgery for basal cell carcinoma S/P tonsillectomy and adenoidectomy Social History Smoking Status: Former smoker second hand exposure: Yes alcohol intake: never substance use type: does not use ROS ROS Narrative General: Denies fever/chills HENT: Denies headache, has had nasal congestion with green drainage and sore throat improving on Bactrim EYES: Denies changes in vision Resp: No change in cough and had been fairly at baseline from a breathing perspective until today Cardiac: Denies chest pain but did feel like her heart was racing GI: Denies abdominal pain, has had some loose stool and some epigastric burning since being on Bactrim : Denies changes in urination Extremity: Denies swelling MSK: Denies weakness Neuro: Has chronic problems with neuropathy and chronic tremor Heme: Denies any bleeding or bruising Skin: Has chronic, patient takes minoxidil Psychiatric: No complaints voiced Vital Signs Vital Signs Vital Signs: 06/13/23 12:47 06/13/23 13:10 06/13/23 13:32 Temperature 98.2 F Temperature Source Temporal Pulse Rate 101 H Respiratory Rate 16 Respiratory Effort Normal Non-Labored Respiratory Depth Normal Respiratory Pattern Normal Blood Pressure 159/87 H Blood Pressure Mean 111 Pulse Ox 98 Oxygen Delivery Method Room Air Room Air Room Air 06/13/23 14:00 06/13/23 15:00 Temperature Temperature Source Pulse Rate 74 70 Respiratory Rate 15 17 Respiratory Effort Respiratory Depth Respiratory Pattern Blood Pressure 117/70 108/60 Blood Pressure Mean 85 76 Pulse Ox 93 93 Oxygen Delivery Method Weight Weight: 61.32 kg Body Mass Index (BMI) 23.2 Physical Exam Narrative General: Alert, oriented, no apparent distress HEENT: Atraumatic, normocephalic Eyes: Anicteric, normal conjunctiva, extraocular movements grossly intact Neck: Supple Respiratory: Somewhat diminished at the bases, normal respiratory effort Cardiovascular: Regular rate and rhythm GI: Soft, nontender, nondistended Extremities: No edema Musculoskeletal: Moving all extremities Neuro: No overt focal neurological deficits Skin: No rashes appreciated Psych: Cooperative Results Lab / Micro Data 06/13/23 13:40 06/13/23 13:40 Labs: Laboratory Results - last 24 hr 06/13/23 13:40: WBC 7.7, RBC 4.78, Hgb 13.7, Hct 43.0, MCV 90.0, MCH 28.7, MCHC 31.9 L, RDW Std Deviation 43.2, RDW Coeff of Gildardo 13.0, Plt Count 325, MPV 10.2, Immature Gran % (Auto) 0.300, Neut % (Auto) 81.3 H, Lymph % (Auto) 11.5 L, [place] % (Auto) 5.6, Eos % (Auto) 0.8, Baso % (Auto) 0.5, Absolute Neuts (auto) 6.2, Absolute Lymphs (auto) 0.88, Nucleated RBC % 0, D-Dimer Quant (PE/DVT) 0.53 H*, Sodium 135 L, Potassium 4.1, Chloride 102, Carbon Dioxide 25.0, Anion Gap 8, BUN17, Creatinine 1.28 H, Estim Creat Clear Calc 31.78, Est GFR (MDRD) Af Amer 52 L, Est GFR (MDRD) Non-Af 43 L, BUN/Creatinine Ratio 13.3, Glucose 115 H, Calcium 9.8, Troponin I High Sens 11, B-Natriuretic Peptide 48.9 Micro: Microbiology 06/13/23 13:40 Mucosa - Nose SARS-CoV-2, Influenza & RSV (PCR) - Final Imaging Radiology Impression Chest X-Ray 06/13/23 14:08 IMPRESSION: Hyperinflation. COPD. Stable examination. Electronically Signed: Audie Ramires MD at 14:33 EST , Chest CTA 06/13/23 15:10 IMPRESSION: No evidence of pulmonary embolism. Hyperinflation and diffuse emphysematous changes with bullous formation more prominent in the upper lobes. Electronically Signed: Audie Ramires MD at 15:46 EST , Assessment & Plan Assessment/Plan (1) Hypoxia: (2) Hypothyroidism: (3) History of COPD: (4) GERD (gastroesophageal reflux disease): (5) Acute dyspnea: PLAN: Plan #Hypoxia and SOB w/ hx chronic COPD and chronic heart failure with preserved ejection fraction -CTA negative for PE -COVID/RSV/FLU negative -Will check resp panel -Trop wnl, bnp wnl -Last echo 01/2023 with stage II diastolic dysfunction and PASP of 28 -Follows with pulmonology for her COPD -Last pulmonary function tests in 2018 with irreversible moderately severe largeairway obstructive ventilatory defect with hyperinflation, air trapping, and reduction in diffusing capacity -Will treat with nebs, as needed albuterol -Somewhat diminished air movement at the bases so query if this could be COPD related, will start on oral steroids -Patient has been on Bactrim but has been having epigastric burning and loose stools with this, will switch to Levaquin -Incentive spirometry, daily weights, I's and O's #CKDIIIa -Slightly up from baseline but minimally and may be secondary to Bactrim -Received some fluids in the ED, monitor I's and O's #Hypothyroidism -Continue Home medication #Epigastric burning -When taking bactrim -Changing abx -Also has listed hx of GERD, will start on Short-term PPI to assess for efficacy #Sinus infection -As above, abx adjusted #Chronic familial tremor -Has felt it was somewhat worse recently, will follow with her neurologist in August # Chronic alopecia -Uses topical minoxidil at home for this #DVT ppx: Lovenox subcu Emperatriz Zamorano MD Time spent in the patient's overall evaluation,decision-making process, review of diagnostic data, adjustment of management, discussion with other providers, nursing nursing and ancillary staff involved in patient's care documentation, 59minutes Charges/Coding Visit Charges Inpatient E&M: 65140 Init Hosp L2 06/13/23 1706 <Electronically signed by Emperatriz Zamorano MD> Cosigner Signature (if applicable): CC: Dr. Alyce Cantrell MD; Dr. Emperatriz Zamorano MD~ Signed [facility] Work Phone: [facility] for referral (narrative)* Diagnostic Procedure Only (Routine) - Closed Specialty Diagnoses / Procedures Referred By Contac t Referred To Contact XR IMAGING Diagnoses Pain in joint, multiple sites Procedures XR HAND GENERAL 3V PA/LAT/OBL BILATERAL RADEX HAND MINIMUM 3 VIEWS Scarlett Cabrera MD [address] [place] [address] Xr Imaging [place] [address] Referral ID Status Reason Start Date Expiration Date V isits Requested Visits Authorized [id number] Closed Auto-Generate d Referral 12/23/2023 01/21/2025 1 1 [facility] for referral (narrative)* Diagnostic Procedure Only (Routine) - Closed Specialty Diagnoses / Procedures Referred By Contac t Referred To Contact XR IMAGING Diagnoses Pain in joint, multiple sites Procedures XR HAND GENERAL 3V PA/LAT/OBL BILATERAL RADEX HAND MINIMUM 3 VIEWS Scarlett Cabrera MD [address] [place] [address] Xr Imaging [place] [address] Referral ID Status Reason Start Date Expiration Date V isits Requested Visits Authorized [id number] Closed Auto-Generate d Referral 12/23/2023 01/21/2025 1 1 [facility] for referral (narrative)No reason for referral information [facility]WW[facility] Work Phone: [facility] for visit Narrative* Diagnostic Procedure Only (Routine) - Closed Specialty Diagnoses / Procedures Referred By Contac t Referred To Contact XR IMAGING Diagnoses Pain in joint, multiple sites Procedures XR HAND GENERAL 3V PA/LAT/OBL BILATERAL RADEX HAND MINIMUM 3 VIEWS Scarlett Cabrera MD [address] [place] [address] Xr Imaging [place] [address] Referral ID Status Reason Start Date Expiration Date V isits Requested Visits Authorized [id number] Closed Auto-Generate d Referral 12/23/2023 01/21/2025 1 1 [facility] for visit Narrative* Diagnostic Procedure Only (Routine) - Closed Specialty Diagnoses / Procedures Referred By Contac t Referred To Contact MOLECULAR & FUNCTIONAL IMAGING Diagnoses Hyperparathyroidism (HCC) Procedures NM PARATHYROID W SPECT/CT PARATHYROID IMAGING W/TOMOGRAPHIC SPECT & CT Randa Mejía MD [facility] [place] [address] Phone: tel: fax: Molecular Imaging [address] [place] [address] Phone: tel: Referral ID Status Reason Start Date Expiration Date V isits Requested Visits Authorized [id number] Closed Auto-Generate d Referral 07/18/2024 08/17/2025 1 1 [facility] for visit Narrative* Diagnostic Procedure Only (Routine) - Closed Specialty Diagnoses / Procedures Referred By Contac t Referred To Contact MOLECULAR & FUNCTIONAL IMAGING Diagnoses Hyperparathyroidism (HCC) Procedures NM PARATHYROID W SPECT/CT PARATHYROID IMAGING W/TOMOGRAPHIC SPECT & CT Randa Mejía MD [address] [place] [address] Phone: tel: fax: Molecular Imaging [address] [place] [address] Phone: tel: Referral ID Status Reason Start Date Expiration Date V isits Requested Visits Authorized [id number] Closed Auto-Generate d Referral 07/18/2024 08/17/2025 [address] [facility] Chief Complaint and Reason for Visit Chief Complaint EORDER Chief Complaint EORDER LOW BACK PAIN 6 M FU DISORDER OF BONE, SCREENING Reason for Visit COPD (chronic obstru ctive pulmonary disease) with acute bronchitis Tobacco dependence in remission Chief Complaint EORDER LOW BACK PAIN 6 M FU DISORDER OF BONE, SCREENING XRAY- ABDOMINAL PAIN URINE- ABDOMINAL PAIN Reason for Visit COPD (chronic obstru ctive pulmonary disease) with acute bronchitis Tobacco dependence in remission Chief Complaint URINE- ABDOMINAL MARK N Chief Complaint NICOTINE DEP Chief Complaint Transient cerebral i schemic attack, unspecified Chief Complaint Transient cerebral i schemic attack, unspecified Transient cerebral ischemic attack, unspecified Transient cerebral ischemic attack, unspecified Chief Complaint C-Scope EORDER- URINE SOB AND HYPOXIA Reason for Visit Screening for intest inal cancer Acute dyspnea Hypoxia Dyspnea on exertion GERD (gastroesophageal reflux disease) History of COPD Hypothyroidism Chief Complaint C-Scope EORDER- URINE SOB AND HYPOXIA SOB AND HYPOXIA SOB AND HYPOXIA Reason for Visit Screening for intest inal cancer Acute dyspnea Hypoxia Dyspnea on exertion GERD (gastroesophageal reflux disease) History of COPD Hypothyroidism Chief Complaint C-Scope EORDER- URINE SOB AND HYPOXIA SOB AND HYPOXIA SOB AND HYPOXIA HX TOBACCO DEPENDENCE Reason for Visit Screening for intest inal cancer Acute dyspnea Dyspnea on exertion GERD (gastroesophageal reflux disease) History of COPD Hypothyroidism Hypoxia Chief Complaint Admit Date SOB April 23, 2024 8 :39am CHEST XRAY May 03, 2024 10:51am S/P [facility] 04/23May 30, 2024 8 :44am PVCS June 05, 2024 6 :26am PVCS June 05, 2024 8 :46am PVCS June 05, 2024 1 2:07pm NICOTINE DEP June 22, 2024 8 :26am 1 Y FU July 17, 2024 2:10 pm HYPERPARATHYROIDISM - COPY PCP July 6:57am Reason for Visit Admit Date PVCs (premature ventricular contractions ) May 30, 2024 8:44am COPD (chronic obstructive pu lmonary disease) with acute bronchitis July 17, 2024 2:10pm Multiple nodules of lung July 17, 2024 2:10pm Chief Complaint Admit Date S/P [facility] 04/23May 30, 2024 8 :44am PVCS June 05, 2024 6 :26am PVCS June 05, 2024 8 :46am PVCS June 05, 2024 1 2:07pm NICOTINE DEP June 22, 2024 8 :26am 1 Y FU July 17, 2024 2:10 pm HYPERPARATHYROIDISM - COPY PCP July 6:57am Family History No Family History Records Found Relationship Condition Age at Onset Recorded Date/T jose manuel brother Malignant neoplasm Unknown father Myocardial infarction Unknown Relationship Condition Age at Onset Recorded Date/T jose manuel brother Malignant neoplasm Unknown Coronary artery disease Unknown Cardiac disease Unknown Disorder of thyroid Unknown Hypertension Unknown father Myocardial infarction Unknown Seizure Unknown sister Cardiac disease Unknown Advance Directives No Advanced Directives Records Found Advance Directive Response Recorded Date/ Time Advance Directives Yes August 08, 11:50am Living Will Yes March 16 11:22pm Power of Orchard Worker Yes March 16, 2016 11:22pm Advance Directive Response Recorded Date/ Time Advance Directives Yes August 08, 10:50am Living Will Yes March 16 10:22pm Power of Orchard Worker Yes March 16, 2016 10:22pm Advance Directive Response Recorded Date/ Time Name of Medical Power of Orchard Worker zachery benito June 13, 2023 1:10pm Advance Directives Yes August 08 015 10:50am Living Will Yes June 13 1:10pm Power of Orchard Worker Yes June 13, 2023 1:10pm Advance Directive Response Recorded Date/ Time Name of Medical Power of Orchard Worker Meghana Gallardo June 13, 2023 5:42pm Advance Directives Yes August 08, 015 10:50am Living Will Yes June 13 5:42pm Power of Orchard Worker Yes June 13, 2023 5:42pm Advance Directive Response Recorded Date/ Time Name of Medical Power of Orchard Worker MEGHANA JIMENEZ July 20, 2023 9:05am Advance Directives Yes August 08, 015 10:50am Living Will Yes July 20, 2023 9:05am Power of Orchard Worker Yes July 19 9:05am Name of Medical Power of Orchard Worker Meghana Jimenez June 13, 2023 5:42pm Advance Directive Response Recorded Date/ Time Name of Medical Power of Orchard Worker MEGHANA JIMENEZ July 20, 2023 10:05am Advance Directives Yes August 08, 015 11:50am Living Will Yes July 20, 2023 10:05am Power of Orchard Worker Yes July 19 10:05am Name of Medical Power of Orchard Worker Meghana Jimenez June 13, 2023 6:42pm Documents on File Type Date Recorded Patient Heading Matcher And Assembler Expl anation Advance Directive(s) 01/13/2021 3:21 PM Documents on File Type Date Recorded Patient Heading Matcher And Assembler Expl anation Advance Directive(s) 01/13/2021 3:21 PM Advance Directive Response Recorded Date/ Time Living Will Yes July 20, 2023 10:05am Power of Orchard Worker Yes July 19 10:05am Living Will Yes April 23 9:51am Power of Orchard Worker Yes April 23, 2024 9:51am Name of Medical Power of Orchard Worker child April 23, 2024 9:51am Advance Directives Yes August 08, 015 11:50am Advance Directive Response Recorded Date/ Time Living Will Yes July 20, 2023 10:05am Do you have a Healthcare Power of Orchard Worker? Yes July 20, 2023 10:05am Advance Directives Yes August 08 11:50am Summary Purpose Additional Source Comments Goals (unrecognized section and content) Goals may be documented in a n alternate sectionGoals may be documented in an alternate sectionGoals may be documented in an alternate sectionGoals may be documented in an alternate sectionGoals may be documented in an alternate sectionGoals may be documented in an alternate sectionGoals may be documented in an alternate sectionGoals may be documented in an alternate sectionGoals may be documented in an alternate sectionGoals may be documented in an alternate sectionGoals may be documented in an alternate sectionGoals may be documented in an alternate sectionGoals may be documented in an alternate section Care Teams (unrecognized sec tion and content) Team Status: Active Member Role Status Dates Dr. Dave Xiong MD Family Provider Active Dr. Alyce Cantrell MD Primary Care Provider Active Team Status: Inactive Member Role Status Dates Dr. Alyce Cantrell MD Primary Care Provider Active Dr. Iker Cotton MD Attending Provider, Referring Pro vider Active Team Status: Inactive Member Role Status Dates Dr. Alyce Cantrell MD Primary Care Provide r, Attending Provider, Referring Provider Active Team Status: Active Member Role Status Dates Dr. Alyce Cantrell MD Primary Care Provide r, Attending Provider, Referring Provider Active Team Status: Inactive Member Role Status Dates Dr. Alyce Cantrell MD Primary Care Provider Active Alina Briceño SCRIBING MACHINE OPERATOR, SCRIBING MACHINE OPERATOR-C Attending Provider, Referrin g Provider Active Team Status: Inactive Member Role Status Dates Dr. Alyce Cantrell MD Primary Care Provider, Attending P rovider Active Team Status: Active Member Role Status Dates Dr. Alyce Cantrell MD Primary Care Provider Active Dr. Neftali Hodges MD Attending Provider Active Team Status: Inactive Member Role Status Dates Dr. Alyce Cantrell MD Primary Care Provider, Referring P rovider Active Dr. Ravindra Espinal MD Attending Provider Active Team Status: Active Member Role Status Dates Dr. Alyce Cantrell MD Primary Care Provider Active Dr. Harsh Sauer DO Emergency Provider Active Dr. Emperatriz Zamorano MD Admit Provider, Attending Provid er Active Team Status: Active Member Role Status Dates Dr. Alyce Cantrell MD Primary Care Provider Active Dr. Stepan Newton MD Attending Provider Active Team Status: Active Member Role Status Dates Dr. Alyce Cantrell MD Primary Care Provider Active Dr. Harsh Sauer DO Emergency Provider Active Dr. Emperatriz Zamorano MD Admit Provider, Other Provider A ctive Dr. Florentino Renee MD Attending Provider, Other Provider Active Team Status: Inactive Member Role Status Dates Dr. Alyce Cantrell MD Primary Care Provider Active Dr. Harsh Sauer DO Emergency Provider Active Dr. Emperatriz Zamorano MD Admit Provider, Other Provider A ctive Dr. Florentino Renee MD Attending Provider Active Team Status: Inactive Member Role Status Dates Dr. Alyce Cantrell MD Primary Care Provider Active Dr. Hossein Espino DO Attending Provider, Referring Pro vider Active Team Status: Active Member Role Status Dates Dr. Alyce Cantrell MD Primary Care Provider, Referring P rovider Active Dr. Ravindra Espinal MD Attending Provider, Other Prov ider Active Lcsw Relationship Specialty Start Date End Date Dave Hernandez MD [address] [place] [id number] PCP - General 03/17/01 Lcsw Relationship Specialty Start Date End Date Dave Hernandez MD [address] [place], [place] [id number] PCP - General 03/17/01 Lcsw Relationship Specialty Start Date End Date Dave Hernandez MD [address] [place] [address] PCP - General 03/17/01 Lcsw Relationship Specialty Start Date End Date Dave Hernandez MD [address] [place] [address] PCP - General 03/17/01 Lcsw Relationship Specialty Start Date End Date Dave Hernandez MD [address] [facility] [place] [address] PCP - General 03/17/01 Lcsw Relationship Specialty Start Date End Date Dave Hernandez MD [address] [facility], [place] [id number] PCP - General 03/17/01 Lcsw Relationship Specialty Start Date End Date Alyce Cantrell MD [address] [facility] [address] [place] [address] PCP - General Family Medicine 07/06/24 Lcsw Relationship Specialty Start Date End Date Alyce Cantrell MD [address] [facility] [address] [place] [address] PCP - General Family Medicine 07/06/24 Lcsw Relationship Specialty Start Date End Date Alyce Cantrell MD [address] [facility] [address] [place] [address] PCP - General Family Medicine 07/06/24 Lcsw Relationship Specialty Start Date End Date Alyce Cantrell MD [address] [address] [place] [address] PCP - General Family Medicine 07/06/24 Lcsw Relationship Specialty Start Date End Date Alyce Cantrell MD [address] [place] [address] PCP - General Family Medicine 07/06/24 Lcsw Relationship Specialty Start Date End Date Alyce Cantrell MD [address] [place] [address] PCP - General Family Medicine 07/06/24 Lcsw Relationship Specialty Start Date End Date Alyce Cantrell MD [address] [place] [address] PCP - General Family Medicine 07/06/24 Lcsw Relationship Specialty Start Date End Date Alyce Cantrell MD [address] [place] [address] PCP - General Family Medicine 07/06/24 Team Status: Active Member Role Status Dates Dr. Alyce Cantrell MD Primary Care Provider Active Team Status: Inactive Member Role Status Dates Dr. Alyce Cantrell MD Primary Care Provider Active Start: April 23, 2024 End: April 23, 2024 Dr. Pollo De La Torre MD Attending Provider Active Start: April 23, 2024 End: April 23, 2024 Dr. Pollo De La Torre MD Emergency Provider Active Start: April 23, 2024 End: April 23, 2024 Team Status: Inactive Member Role Status Dates Dr. Alyce Cantrell MD Primary Care Provider Active Start: May 03, 2024 End: May 03, 2024 Dr. Alyce Cantrell MD Attending Provider Active St art: May 03, 2024 End: May 03, 2024 Dr. Alyce Cantrell MD Referring Provider Active St art: May 03, 2024 End: May 03, 2024 Team Status: Inactive Member Role Status Dates Dr. Alyce Cantrell MD Primary Care Provider Active Start: May 30, 2024 End: May 30, 2024 Dr. Alyce Cantrell MD Referring Provider Active St art: May 30, 2024 End: May 30, 2024 Dr. Neftali [place] MD Attending Provider Active S tart: May 30, 2024 End: May 30, 2024 Team Status: Inactive Member Role Status Dates Dr. Alyce Cantrell MD Primary Care Provider Active Start: June 05, 2024 End: June 05, 2024 Dr. Neftali Hodges MD Attending Provider Active S tart: June 05, 2024 End: June 05, 2024 Dr. Neftali Hodges MD Referring Provider Active S tart: June 05, 2024 End: June 05, 2024 Team Status: Active Member Role Status Dates Dr. Alyce Cantrell MD Primary Care Provider Active Start: June 05, 2024 Dr. Neftali Hodges MD Attending Provider Active S tart: June 05, 2024 Dr. Neftali Hodges MD Referring Provider Active S tart: June 05, 2024 Team Status: Active Member Role Status Dates Dr. Alyce Cantrell MD Primary Care Provider Active Start: June 05, 2024 Dr. Neftali Hodges MD Attending Provider Active S tart: June 05, 2024 Dr. Neftali Hodges MD Referring Provider Active S tart: June 05, 2024 Dr. Neftali Hodges MD Other Provider Active Start : June 05, 2024 Team Status: Inactive Member Role Status Dates Dr. Alyce Cantrell MD Primary Care Provider Active Start: June 22, 2024 End: June 22, 2024 Dr. Hossein Espino DO Attending Provider Active S tart: June 22, 2024 End: June 22, 2024 Dr. Hossein Espino DO Referring Provider Active S tart: June 22, 2024 End: June 22, 2024 Team Status: Inactive Member Role Status Dates Dr. Alyce Cantrell MD Primary Care Provider Active Start: July 17, 2024 End: July 17, 2024 Dr. Alyce Cantrell MD Referring Provider Active St art: July 17, 2024 End: July 17, 2024 Joelle Nieto , SCRIBING MACHINE OPERATOR-C Attending Provider Active Start: July 17, 2024 End: July 17, 2024 Team Status: Inactive Member Role Status Dates Dr. Alyce Cantrell MD Primary Care Provider Active Start: July 18, 2024 End: July 18, 2024 MAT MILTON Attending Provider Active Start: M arch 2024 End: July 18, 2024 MAT MILTON Referring Provider Active Start: M arch 2024 End: July 18, 2024 Team Status: Inactive Member Role Status Dates Dr. Alyce Cantrell MD Primary Care Provider Active Start: September 03, 2024 End: September 03, 2024 Dr. Alyce Cantrell MD Attending Provider Active St art: September 03, 2024 End: September 03, 2024 Dr. Alyce Cantrell MD Referring Provider Active St art: September 03, 2024 End: September 03, 2024 Lcsw Relationship Specialty Start Date End Date Alyce Cantrell MD [address] [facility] [address] [place] [address] PCP - General Family Medicine 07/06/24 Lcsw Relationship Specialty Start Date End Date Alyce Cantrell MD [address] [facility] [address] [place] [address] PCP - General Family Medicine 07/06/24 Lcsw Relationship Specialty Start Date End Date Alyce Cantrell MD [address] [facility] [address] [place] [address] PCP - General Family Medicine 07/06/24 Source Comments (unrecognize d section and content) In the event this informatio n is protected by the Federal Confidentiality of Alcohol and Drug Abuse Patient Records regulations: The Federal rules restrict any use of the information to criminally investigate or prosecute any alcohol or drug abuse patient.[facility] Center[facility] the event this information is protected by the Federal Confidentiality of Alcohol and Drug Abuse Patient Records regulations: The Federal rules restrict any use of the information to criminally investigate or prosecute any alcohol or drug abuse patient.[facility] CenterIn the event this information is protected by the Federal Confidentiality of Alcohol and Drug Abuse Patient Records regulations: The Federal rules restrict any use of the information to criminally investigate or prosecute any alcohol or drug abuse patient.[facility] CenterIn the event this information is protected by the Federal Confidentiality of Alcohol and Drug Abuse Patient Records regulations: The Federal rules restrict any use of the information to criminally investigate or prosecute any alcohol or drug abuse patient.[facility] CenterIn the event this information is protected by the Federal Confidentiality of Alcohol and Drug Abuse Patient Records regulations: The Federal rules restrict any use of the information to criminally investigate or prosecute any alcohol or drug abuse patient.[facility] CenterIn the event this information is protected by the Federal Confidentiality of Alcohol and Drug Abuse Patient Records regulations: The Federal rules restrict any use of the information to criminally investigate or prosecute any alcohol or drug abuse patient.[facility] CenterIn the event this information is protected by the Federal Confidentiality of Alcohol and Drug Abuse Patient Records regulations: The Federal rules restrict any use of the information to criminally investigate or prosecute any alcohol or drug abuse patient.[facility] CenterIn the event this information is protected by the Federal Confidentiality of Alcohol and Drug Abuse Patient Records regulations: The Federal rules restrict any use of the information to criminally investigate or prosecute any alcohol or drug abuse patient.[facility] CenterIn the event this information is protected by the Federal Confidentiality of Alcohol and Drug Abuse Patient Records regulations: The Federal rules restrict any use of the information to criminally investigate or prosecute any alcohol or drug abuse patient.[facility] CenterIn the event this information is protected by the Federal Confidentiality of Alcohol and Drug Abuse Patient Records regulations: The Federal rules restrict any use of the information to criminally investigate or prosecute any alcohol or drug abuse patient.[facility] CenterIn the event this information is protected by the Federal Confidentiality of Alcohol and Drug Abuse Patient Records regulations: The Federal rules restrict any use of the information to criminally investigate or prosecute any alcohol or drug abuse patient.[facility] CenterIn the event this information is protected by the Federal Confidentiality of Alcohol and Drug Abuse Patient Records regulations: The Federal rules restrict any use of the information to criminally investigate or prosecute any alcohol or drug abuse patient.[facility] CenterIn the event this information is protected by the Federal Confidentiality of Alcohol and Drug Abuse Patient Records regulations: The Federal rules restrict any use of the information to criminally investigate or prosecute any alcohol or drug abuse patient.[facility] CenterIn the event this information is protected by the Federal Confidentiality of Alcohol and Drug Abuse Patient Records regulations: The Federal rules restrict any use of the information to criminally investigate or prosecute any alcohol or drug abuse patient.[facility] CenterIn the event this information is protected by the Federal Confidentiality of Alcohol and Drug Abuse Patient Records regulations: The Federal rules restrict any use of the information to criminally investigate or prosecute any alcohol or drug abuse patient.[facility] CenterIn the event this information is protected by the Federal Confidentiality of Alcohol and Drug Abuse Patient Records regulations: The Federal rules restrict any use of the information to criminally investigate or prosecute any alcohol or drug abuse patient.[facility] CenterIn the event this information is protected by the Federal Confidentiality of Alcohol and Drug Abuse Patient Records regulations: The Federal rules restrict any use of the information to criminally investigate or prosecute any alcohol or drug abuse patient.[facility] CenterIn the event this information is protected by the Federal Confidentiality of Alcohol and Drug Abuse Patient Records regulations: The Federal rules restrict any use of the information to criminally investigate or prosecute any alcohol or drug abuse patient.[facility] Reason for Visit (unrecogniz ed section and content) Reason Comments Assessment Reason Comments Received Outside Medical Records [facility] Reason Comments Orders Reason Comments Consult FACE SHEET Reason Comments PT Eval Specialty Diagnoses / Procedures Referred By Contac t Referred To Contact [facility] Diagnoses Trochanteric bursitis of left hip Procedures CONSULT TO PHYSICAL THERAPY PHYSICAL THERAPY EVALUATION HIGH COMPLEX 45 MINS Scarlett Cabrera MD [address] [place] [address] Phone: tel: fax: [facility] [address] [place] [address] Referral ID Status Reason Start Date Expiration Date Visits Requested Visits Authorized [id number] Authorized PCP Requested Referral Auto-Generate d Referral 07/06/2024 07/06/2025 99 99 Reason Comments Hyperparathyroidism Consult Specialty Diagnoses / Procedures Referred By Contac t Referred To Contact Diagnoses Hyperparathyroidism (HCC) Procedures CONSULT TO ENDOCRINE SURGERY OFFICE/OUTPATIENT [facility] MDM 60 MINUTES Scarlett Cabrera MD [address] [place] [address] Phone: tel: fax: Referral ID Status Reason Start Date Expiration Date V isits Requested Visits Authorized [id number] Closed PCP Requested Referral 07/06/2024 07/06/2025 1 1 Reason Comments Received Outside Medical Records INDEXED EKG AND STRESS TEST Reason Comments Patient Question Abdominal pain Reason Comments Hyperparathyroidism INFORMATION SOURCE (unrecogn ized section and content) DATE CREATED AUTHOR 07/31/2024 [facility] DATE CREATED AUTHOR AUTHOR'S ORGANIZ ATION 09/18/2024 [facility] DATE CREATED AUTHOR AUTHOR'S ORGANIZ ATION 10/11/2024 [facility] DATE CREATED AUTHOR AUTHOR'S ORGANIZ ATION 10/27/2024 [facility] FOR RECORDS PERTAINING TO PATIENTS WHO ARE [...] BE BASED ON THE PRIMARY CLINICAL RECORDS. [facility] provides no warranty or guarantee of the accuracy or completeness of information in this document.
--- NOTE | 2024-11-07 07:27 | US_ITS ---
PROCEDURE: ABDOMEN COMPLETE 11/07/2024 REASON FOR EXAM: GENERALIZED ABD PAIN One-month history of abdominal pain. TECHNIQUE: ABDOMEN COMPLETE COMPARISON: Prior study dated November 29, 2016. FINDINGS: Liver: Grossly normal size and echotexture. Gallbladder: Surgically absent. Common bile duct: 4.8 mm. . Pancreas: Normal Kidneys: The right kidney measures 9.3 cm x 5.3 cm 4.5 cm.. The left kidney measures 8.1 cm x 3.9 cm 4.4 cm.. There are 2, nonobstructive intrarenal calculi. The larger measures 4 mm x 3 mm x 2 mm. This is in the upper pole. Spleen: Normal in size and echotexture measuring 8.7 cm x 4.1 cm 4.6 cm. Calcified splenic granulomas are seen. . Aorta: Visualized abdominal aorta is of normal size. IVC: Visualized inferior vena cava is unremarkable. Peritoneal Findings: No ascites identified. US/Abdomen Complete IMPRESSION: Status post cholecystectomy. Nonobstructive left intrarenal calculi. Reading Location: [id number]
== END | disposition home or self-care (01) ==
LOC: US 07:20
PROVIDERS: PCP Family Medicine; Referring Provider Family Medicine; Visit Provider Family Medicine
DX: R10.84 Generalized abdominal pain (principal)
CPT/HCPCS: 76700

== ENCOUNTER → 2024-12-06 | Outpatient (CLI) | payer MEDICARE, OTHER, SELFPAY ==
--- NOTE | 2024-12-06 08:18 | CT_ITS ---
PROCEDURE: CHEST WITHOUT CONTRAST 12/06/2024 REASON FOR EXAM: MULTIPLE NODULES <6MM TECHNIQUE: Chest CT without contrast. Coronal and Sagittal reconstruction series were provided. One or more dose reduction techniques were used (e.g., Automated exposure control, adjustment of the mA and/or kV according to patient size, use of iterative reconstruction technique RADIATION DOSE SUMMARY: CTDlvol: 6.50 mGy DLP: 248.67 mGycm COMPARISON: 06/22/2024 FINDINGS: Hardware: None Lung windows again show significant underlying emphysema with stable fibrotic scarring in the right upper lobe and stable nonspecific pleural thickening in both hemithoraces. There is a stable 7 mm right upper lobe nodule seen on axial image 20. There is a stable 3 mm noncalcified right upper lobe nodule on axial image 23. There is a stable 4.5 mm nodule in the right upper lobe on axial image 24. No new suspicious noncalcified mass or nodule is noted. No organized infiltrate or effusion. There is stable peribronchial thickening in both hemithoraces consistent with chronic bronchitis. Soft tissue windows show a normal-appearing thyroid gland. No suspicious axillary, mediastinal or perihilar adenopathy. Peripheral calcifications noted in the thoracic aorta without aneurysm. Stable densely calcified coronary arteries. Limited cuts of the upper abdomen show a small stable retrocardiac hiatal hernia. Bony structures show degenerative change. CT/Chest without Contrast IMPRESSION: Coronary artery calcification (CAC) is is present Underlying emphysema with stable right upper lobe nodules unchanged from Februa ry. Another six-month follow-up is recommended to assess stability. No organized infiltrate or effusion, there is evidence of chronic bronchitis. No suspicious adenopathy Degenerative bony changes Reading Location: [id number]
== END | disposition home or self-care (01) ==
LOC: CT 08:17
PROVIDERS: PCP Family Medicine; Referring Provider Nurse Practitioner Family; Visit Provider Nurse Practitioner Family
DX: J44.0 Chronic obstructive pulmonary disease with (acute) lower respiratory infection (principal); J20.9 Acute bronchitis, unspecified; R91.8 Other nonspecific abnormal finding of lung field
CPT/HCPCS: 71250; 94060; 94726; 94729

== ENCOUNTER → 2024-12-20 | Outpatient (CLI) | payer MEDICARE, OTHER, SELFPAY ==
[2024-12-20 08:20] VITALS: PULSE 63; PULSE 71; PULSE 78; PULSE 83; PULSE 85; PULSE 86; PULSE 87; O2SAT 89; O2SAT 90; O2SAT 92; O2SAT 93; O2SAT 96; O2SAT 97
--- NOTE | 2024-12-21 10:57 | PCM.PSN.6M ---
PSN 6 Minute Walk Test 6 Minute Walk Test 6 Minute Walk Test: 6 Minute Walk Test PSN:6-Minute Walk Test Start: 12/20/24 08:41 Freq: Status: Active Protocol: [id number].[id number] Document 12/20/24 08:20 WLB (Rec: 12/20/24 08:44 WLB [id number]) 6 Minute Walk Test Date Performed 12/20/24 Time Performed 08:20 Height 5 ft 4 in Weight: 131 lb Weight in Pounds 131.[address]: Joelle Nieto Assistive device None used: Pre-test Oxygen Delivery Room Air Method Pulse Ox (%) 97 Pulse Rate (60-100 63 beats/min) Dyspnea Jason Scale ( 1 0-10) Exertion Jason Scale 7 (6-20) 1st minute Oxygen Delivery Room Air Method Pulse Ox (%) 93 Pulse Rate (60-100 87 beats/min) 2nd minute Oxygen Delivery Room Air Method Pulse Ox (%) 92 Pulse Rate (60-100 86 beats/min) 3rd minute Oxygen Delivery Room Air Method Pulse Ox (%) 89 Pulse Rate (60-100 85 beats/min) 4th minute Oxygen Delivery Room Air Method Pulse Ox (%) 89 Pulse Rate (60-100 83 beats/min) 5th minute Oxygen Delivery Room Air Method Pulse Ox (%) 89 Pulse Rate (60-100 83 beats/min) 6th minute Oxygen Delivery Room Air Method Pulse Ox (%) 90 Pulse Rate (60-100 78 beats/min) Dyspnea Jason Scale ( 2 0-10) Exertion Jason Scale 8 (6-20) Post-test Oxygen Delivery Room Air Method Pulse Ox (%) 96 Pulse Rate (60-100 71 beats/min) Full Laps Walked 17 Partial Lap, Number 0 of Tiles Walked Total Distance 1003 Walked (ft) Interpretation Interpretation: The patient ambulated 1003 feet over the course of 6 minutes beginning on room air without assistive devices. Pretesting oxygen saturation was noted to be 97% on room air. With ambulation, the sukhwinder oxygen saturation was 89%. This represents a significant exertional oxygen desaturation, consistent with a pulmonary limitation to exercise tolerance. Recommendations Recommendations: There is no indication for the use of supplemental oxygen at this time. However, close interval follow-up is recommended, given the degree of oxygen desaturation noted during this study.
== END | disposition home or self-care (01) ==
LOC: PSN 08:08
PROVIDERS: PCP Family Medicine; Referring Provider Nurse Practitioner Family; Visit Provider Nurse Practitioner Family
DX: J44.0 Chronic obstructive pulmonary disease with (acute) lower respiratory infection (principal); J20.9 Acute bronchitis, unspecified
CPT/HCPCS: 94618

== ENCOUNTER 2025-03-14 07:26 | Day surgery (SDC) | payer MEDICARE, OTHER, SELFPAY ==
[2025-03-11 09:46] LABS: Hematocrit 43.6 % (37-47); Hemoglobin 14.3 g/dL (12.0-15.0); Mean Corp Hgb Conc 32.8 g/dL (32-36); Mean Corpuscular Volume 90.5 fL (81-99); Mean Platelet Vol. 11.2 fl (6.2-12.0); Platelet Count 261 K/mm3 (150-450); RBC Distribution Width CV 12.9 % (11.6-14.6); RBC Distribution Width SD 42.6 fl (35.1-43.9); Red Blood Count 4.82 M/mm3 (4.2-5.4); White Blood Count 6.8 K/mm3 (4.4-11.0)
[2025-03-11 09:51] LABS: Prothrombin Time (Protime)PT. 14.0 SECONDS (11.7-14.9)
[2025-03-11 09:52] LABS: Partial Thromboplast Time 29.1 Seconds (24.1-36.2)
[2025-03-11 10:34] LABS: Anion Gap 11 (5-15); BUN 20 mg/dL (4-19); BUN/Creat Ratio 21.0 RATIO (10-20); Calcium,Total 9.4 mg/dL (7.6-11.0); Carbon Dioxide 25.7 mmol/L (21.0-32.0); Chloride 107 mmol/L (98-108); Glucose 97 mg/dL (70-99); Potassium 4.0 mmol/L (3.3-5.1)
--- NOTE | 2025-03-11 17:25 | PAT.ANESEVAL ---
Pre-Assessment Diagnosis/Proposed Procedure Planned Operative Procedure(s): Hernia, open Ventral/incisional Repair w/ Mesh Anesthesia History Anesthesia History - daub color mixer: Anesthesia History - daub color mixer Hx Hospitalization Yes: PARATHYROID SURGERY 03/07/25 11:18 Any Problems With Anesthesia Yes: N/V 03/07/25 11:18 Cholinesterase deficiency No 03/07/25 11:18 You/Your Family Experience No 03/07/25 11:18 fever (hyperthermia) with Relationship Recent Exposure to Contagious No 07/22/23 08:25 Disease Does patient have nerve No 03/07/25 11:18 stimulator Patient instructed to have device shut off --Does patient have Pacemaker or ICD? When Was Last Pacemaker Check QUESTION #4 FULL TEXT: You/Your Family Experience fever (hyperthermia) with Anesthesia Last Oral Intake Last Oral intake: Last Oral Intake NPO since Meds taken in AM with sips of water? Meds patient instructed to take am of surgery PONV PONV - daub color mixer: PONV - daub color mixer Female Yes 03/07/25 11:18 HX of Motion Sickness Yes 03/07/25 11:18 HX of N/V After Surgery Yes 03/07/25 11:18 Non-Smoker Yes 03/07/25 11:18 Duration of Surgery greater Yes 03/07/25 11:18 than 60 minutes Number of Risk Factors 5 03/07/25 11:18 PONV Score Severe Risk 03/07/25 11:18 Height & Weight Height & Weight: Anesthesia: Height & Weight Height 5 ft 4 in 03/01/25 09:57 Respiratory Assessment Respiratory Assessment - daub color mixer: Respiratory Tract Infection Hx - daub color mixer Hx Respiratory Tract Infection No 03/07/25 11:18 STOP Sleep Apnea STOP Sleep Apnea - daub color mixer: STOP Sleep Apnea - daub color mixer Hx Hypertension No 03/07/25 11:18 Hx Sleep Apnea No 03/07/25 11:18 CPAP No 07/22/23 09:45 BIPAP No 07/20/23 09:05 Do you snore loudly (louder No 03/07/25 11:18 than talking or can be heard Do you often feel tired/ No 03/07/25 11:18 fatigued/ sleepy during daytime? Has anyone observed you stop No 03/07/25 11:18 breathing during sleep? STOP Results Negative 03/07/25 11:18 QUESTION #5 FULL TEXT : Do you snore loudly (louder than talking or can be heard through closed doors)? 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 Specify any problems Hx of Preganancy in last 3 No 03/07/25 11:18 Months Nurse Filling Out Transfusion VLEHMAN 03/07/25 11:18 & Questions: Date: 03/07/25 03/07/25 11:18 Time: 11:37 03/07/25 11:18 Patient unable to answer at this time (ie. confused, unrespo /Reproduction History /Reproductive History - daub color mixer: /Reproductive Hx- daub color mixer Hx Now Gestational Age (in weeks): EDC: Hx Hx Para Hx Section SAB No 03/07/25 11:18 PFSH Medical History (Updated 03/07/25 @ 11:36 by Renay Jack) Macular degeneration Wears hearing aid Wears glasses Bruising History of steroid therapy Arthritis History of renal disease Anemia High cholesterol Former smoker History of irregular heartbeat History of Holter monitoring History of echocardiogram History of stress test Cardiology follow-up encounter Personal history of thoracic outlet syndrome Heart murmur Dizziness Cancer Thyroid disease TIA (transient ischemic attack) History of IBS Emphysema, unspecified Shortness of breath on exertion Tremor Neuropathy History of irregular heartbeat rib removal mohs procedure Hearing loss Fatigue Hyperlipidemia Pernicious anemia Kidney stone Hypothyroidism IBS (irritable bowel syndrome) Migraines Fibromyalgia Squamous cell carcinoma Basal cell carcinoma (BCC) Hemangioma Lentigo Keratosis Other specified disorder of gallbladder Atypical chest pain Dyspnea on exertion GERD (gastroesophageal reflux disease) COPD (chronic obstructive pulmonary disease) Pulmonary nodule PND (post-nasal drip) Hoarseness Home Medications ?Medication ?Instructions ?Recorded ?Last Taken ?Type atorvastatin 10 mg tablet 10 mg PO DAILY 08/08/14 07/21/23 History biotin 10,000 mcg capsule 5,000 mcg PO DAILY 08/08/14 07/20/23 History folic acid 1 mg tablet 1 mg PO QODAY 08/08/14 07/20/23 History polyethylene glycol 3350 17 17 g PO DAILY PRN constipation 08/08/14 06/12/23 History gram/dose oral powder aspirin 81 mg tablet,delayed 81 mg PO DAILY 04/14/23 03/06/25 History release cyanocobalamin (vitamin B-12) 1,000 mcg IM QMONTH 06/13/23 07/16/23 History 1,000 mcg/mL injection solution (Dodex) minoxidil 5 % topical foam 1 ea topical DAILY 06/13/23 06/12/23 History (Daylogic Minoxidil) calcium 500 mg (as 1 tab PO DAILY 07/20/23 07/20/23 History carbonate)-vitamin D3 3.125 mcg (125 unit) tablet cholecalciferol (vitamin D3) 25 25 mcg PO DAILY 07/20/23 07/20/23 History mcg (1,000 unit) capsule (Vitamin D3) vitamins A,C,F-zllj-rjmtgz 4,296 1 cap PO BID 07/20/23 07/20/23 History mcg-226 mg-90 mg capsule (ICaps AREDS) fluoride (sodium) 1.1 % dental 1 applic PO Q24H 07/27/23 Unknown History cream (SF 5000 Plus) albuterol sulfate 90 mcg/actuation 2 puff inhalation Q6H PRN 02/24/24 Unknown Rx aerosol inhaler (Ventolin HFA) shortness of breath or wheezing #1 device levothyroxine 75 mcg tablet 75 mcg PO DAILY 04/23/24 Unknown History umeclidinium 62.5 mcg/actuation 1 inh inhalation Q24H COPD J44.9 07/17/24 Unknown Rx blister powder for inhalation #3 ea (Incruse Ellipta) misoprostol 100 mcg tablet 100 mcg PO DAILY 03/01/25 Unknown History (Cytotec) Allergy/AdvReac Type Severity Reaction Status Date / Time codeine Allergy Severe Nausea Verified 03/07/25 11:12 metaxalone (From Skelaxin) Allergy Severe palpitations, Verified 03/07/25 11:12 tachycardia and itching amoxicillin trihydrate (From Allergy Intermediate Diarrhea Verified 03/07/25 11:12 Augmentin) cyclobenzaprine (From Allergy Intermediate PT UNSURE Verified 03/07/25 11:12 Flexeril) OF REACTION doxycycline Allergy Intermediate Abd Verified 03/07/25 11:12 cramps/diarrhea nitrofurantoin (From Allergy Intermediate Rash Verified 03/07/25 11:12 Macrodantin) paroxetine (From Paxil) Allergy Intermediate PT UNSURE Verified 03/07/25 11:12 OF REACTION varenicline (From Chantix) Allergy Intermediate Nausea Verified 03/07/25 11:12 acetaminophen (From Vicodin) Allergy Abd Verified 03/07/25 11:12 cramps/diarrhea bacitracin (From Polysporin) Allergy Unknown Verified 03/07/25 11:12 hydrocodone (From Vicodin) Allergy Abd Verified 03/07/25 11:12 cramps/diarrhea polymyxin B sulfate (From Allergy Unknown Verified 03/07/25 11:12 Polysporin) potassium clavulanate (From Allergy Unknown Verified 03/07/25 11:12 Augmentin) sertraline (From Zoloft) Allergy Abd Verified 03/07/25 11:12 cramps/diarrhea tramadol (From Ultram) Allergy Abd Verified 03/07/25 11:12 cramps/diarrhea adhesive AdvReac Severe Swollen, Verified 03/07/25 11:12 red, broken skin: holter patches sulfamethoxazole (From AdvReac Intermediate Abd Verified 03/07/25 11:12 Septra) cramps/diarrhea trimethoprim (From Septra) AdvReac Intermediate Abd Verified 03/07/25 11:12 cramps/diarrhea propoxyphene napsylate (From AdvReac Nausea/Vom/ Verified 03/07/25 11:12 Darvocet-N 100) Diarrhea Family History Brother Cancer CAD (coronary artery disease) Heart disease Thyroid disorder Hypertension Father Myocardial infarction Heart disease Hypertension Seizures Sister Heart disease Hypertension Thyroid disorder Surgical History History of parathyroid surgery S/P tonsillectomy and adenoidectomy S/P Mohs surgery for basal cell carcinoma Hx laparoscopic cholecystectomy H/O foot surgery H/O lithotripsy History of appendectomy History of hysterectomy H/O cataract removal with insertion of prosthetic lens History of vitrectomy Social History Smoking Status: Former smoker second hand exposure: Yes alcohol intake: never substance use type: does not use Audit: Pertinent Findings Pertinent Findings EKG Perinent findings: 03/11/2025. Normal sinus rhythm. Nonspecific ST abnormality. Compared to EKG of April 23, 2024, no significant change was found. Stress test pertinent findings: June 05, 2024. EF of 80%. No areas of reversibility noted to suggest ischemia. No previous infarct. Echo (EF%) pertinent findings: June 14, 2023. EF is 65%. RVSP is 31 mmHg. No aortic stenosis noted. Consult pertinent findings: 01/28/2025. Michael PECK-C. 1. PVCs-history of PVCs. Asymptomatic at this time. Latest stress and echo are as above normal. Holter monitor as below with only occasional PVCs and PACs. Continue metoprolol 25 mg. Additional pertinent findings: Holter monitor. June 05, 2024. Average heart rate is normal sinus rhythm. 660 VE beats comprising 0.7% of total QRS complexes. No runs. 73 SVE beats comprising 0.1% of total QRS complexes. No atrial fibrillation. 1 episode of shortness of breath in her diary correlated with normal sinus rhythm. Recommendation Anesthesia Recommendation Anesthesia recommendation: OPTIMIZED for anesthesia
[2025-03-14] VITALS (10 sets, daily range): BP systolic 106–123; BP diastolic 55–75; PULSE 63–80; RESP 15–16; TEMP 36.1–36.3; O2SAT 92–98; BMI 22.3
[2025-03-14] MEDS: Lactated Ringers 1,000 ML 15 ML IV (07:59)
--- NOTE | 2025-03-14 08:33 | PCM.PRE.AN2 ---
ASA Classification* ASA Classification ASA Classification: 3 Assessment & Plan Anesthesia* Anesthesia Assessment Anesthesia Assessment: Discussed sedation and/or anesthesia options, risks, benefits, and alternatives with patient/parents/legal guardian/POA. Questions invited. The patient/parents/legal guardian/POA seems to understand and agrees to proceed with anesthesia plan. Reviewed the physical assessment, medical history, allergy history and patient home medications list prior to surgery/procedure/anesthetic and documented any changes. Performed airway and anesthesia risk assessments. Anesthesia Type Anesthesia Type: General History Source History Obtained from:: Patient and Chart Anesthesia Focused Assessment* Temperature: 97.4 F Pulse Rate: 80 Blood Pressure: 123/75 Respiratory Rate: 16 Pulse Ox: 98 Oxygen Delivery Method: Room Air Airway Assessment Mouth opens: >3 cm Mallampati Score: II Teeth Condition: Caps/Crowns (Multiple crowns. Several implants. They are all tight.) Neck Range of motion (ROM): Limited ROM (Slight Decrease) Labs Anesthesia Preop lab: CBC WBC, (4.4-11.0) 6.8 K/mm3 03/11/25, 08:38 RBC, (4.2-5.4) 4.82 M/mm3 03/11/25, 08:38 Hgb, (12.0-15.0) 14.3 g/dL 03/11/25, 08:38 Hct, (37-47) 43.6 % 03/11/25, 08:38 Plt Count, (150-450) 261 K/mm3 03/11/25, 08:38 CHEMISTRY Potassium, (3.3-5.1) 4.0 mmol/L 03/11/25, 08:38 Sodium, (133-145) 143 mmol/L 03/11/25, 08:38 Magnesium, (1.6-2.6) 2.2 mg/dL 06/14/23, 07:51 Phosphorus, (2.5-4.9) 3.2 mg/dL 01/07/20, 07:26 BUN, (4-19) 20 mg/dL H 03/11/25, 08:38 Creatinine, (0.70-1.20) 0.96 mg/dL 03/11/25, 08:38 Glucose, (70-99) 97 mg/dL 03/11/25, 08:38 TSH, (0.300-4.200) 1.200 uIU/mL 03/11/25, 08:38 COAG PT, (11.7-14.9) 14.0 SECONDS 03/11/25, 08:38 Pre-Assessment Diagnosis/Proposed Procedure Planned Operative Procedure(s): Hernia, open Ventral/incisional Repair w/ Mesh Anesthesia History Anesthesia History - overcaster: Anesthesia History - overcaster Hx Hospitalization Yes: PARATHYROID SURGERY 03/07/25 11:18 Any Problems With Anesthesia Yes: N/V 03/07/25 11:18 Cholinesterase deficiency No 03/07/25 11:18 You/Your Family Experience No 03/07/25 11:18 fever (hyperthermia) with Relationship Recent Exposure to Contagious No 03/14/25 07:49 Disease Does patient have nerve No 03/07/25 11:18 stimulator Patient instructed to have device shut off --Does patient have Pacemaker No 03/14/25 07:49 or ICD? When Was Last Pacemaker Check QUESTION #4 FULL TEXT: You/Your Family Experience fever (hyperthermia) with Anesthesia Last Oral Intake Last Oral intake: Last Oral Intake NPO since 23:00 03/14/25 07:49 Meds taken in AM with sips of Yes 03/14/25 07:49 water? Meds patient instructed to LEVOTHYROXINE 03/14/25 07:49 take am of surgery INCRUSE ELLIPTA Any additional information?: Yes Meds taken in AM with sips of water?: Yes PONV PONV - overcaster: PONV - overcaster Female Yes 03/07/25 11:18 HX of Motion Sickness Yes 03/07/25 11:18 HX of N/V After Surgery Yes 03/07/25 11:18 Non-Smoker Yes 03/07/25 11:18 Duration of Surgery greater Yes 03/07/25 11:18 than 60 minutes Number of Risk Factors 5 03/07/25 11:18 PONV Score Severe Risk 03/07/25 11:18 Height & Weight Height & Weight: Anesthesia: Height & Weight Height 5 ft 4.5 in 03/14/25 07:49 Weight: 60 kg 03/14/25 07:49 Body Mass Index (BMI) 22.3 03/14/25 07:49 Respiratory Assessment Respiratory Assessment - overcaster: Respiratory Tract Infection Hx - overcaster Hx Respiratory Tract Infection No 03/07/25 11:18 STOP Sleep Apnea STOP Sleep Apnea - overcaster: STOP Sleep Apnea - overcaster Hx Hypertension No 03/07/25 11:18 Hx Sleep Apnea No 03/07/25 11:18 CPAP No 07/22/23 09:45 BIPAP No 07/20/23 09:05 Do you snore loudly (louder No 03/07/25 11:18 than talking or can be heard Do you often feel tired/ No 03/07/25 11:18 fatigued/ sleepy during daytime? Has anyone observed you stop No 03/07/25 11:18 breathing during sleep? STOP Results Negative 03/07/25 11:18 QUESTION #5 FULL TEXT : Do you snore loudly (louder than talking or can be heard through closed doors)? 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 Specify any problems Hx of Preganancy in last 3 No 03/07/25 11:18 Months Nurse Filling Out Transfusion [facility]LEHMAN 03/07/25 11:18 & Questions: Date: 03/07/25 03/07/25 11:18 Time: 11:37 03/07/25 11:18 Patient unable to answer at this time (ie. confused, unrespo /Reproduction History /Reproductive History - overcaster: /Reproductive Hx- overcaster Hx Now Gestational Age (in weeks): EDC: Hx Hx Para Hx Section SAB No 03/07/25 11:18 Active Medications Active Medications: Current Medications Generic Name Dose Route Start Last Admin Trade Name Freq PRN Reason Stop Dose Admin Clindamycin Phosphate 900 mg in 50 mls @ 75 mls/hr 03/14/25 09:00 Cleocin IV 03/14/25 09:39 INTRAOP ONE Lactated Ringer's 1,000 mls @ 15 mls/hr 03/14/25 07:30 03/14/25 07:59 IV 15 mls/hr .Q48H ANTHONY Administration PFSH Medical History Macular degeneration Wears hearing aid Wears glasses Bruising History of steroid therapy Arthritis History of renal disease Anemia High cholesterol Former smoker History of irregular heartbeat History of Holter monitoring History of echocardiogram History of stress test Cardiology follow-up encounter Personal history of thoracic outlet syndrome Heart murmur Dizziness Cancer Thyroid disease TIA (transient ischemic attack) History of IBS Emphysema, unspecified Shortness of breath on exertion Tremor Neuropathy History of irregular heartbeat rib removal mohs procedure Hearing loss Fatigue Hyperlipidemia Pernicious anemia Kidney stone Hypothyroidism IBS (irritable bowel syndrome) Migraines Fibromyalgia Squamous cell carcinoma Basal cell carcinoma (BCC) Hemangioma Lentigo Keratosis Other specified disorder of gallbladder Atypical chest pain Dyspnea on exertion GERD (gastroesophageal reflux disease) COPD (chronic obstructive pulmonary disease) Pulmonary nodule PND (post-nasal drip) Hoarseness Home Medications ?Medication ?Instructions ?Recorded ?Last Taken ?Type atorvastatin 10 mg tablet 10 mg PO DAILY 08/08/14 07/21/23 History biotin 10,000 mcg capsule 5,000 mcg PO DAILY 08/08/14 07/20/23 History folic acid 1 mg tablet 1 mg PO QODAY 08/08/14 07/20/23 History polyethylene glycol 3350 17 17 g PO DAILY PRN constipation 08/08/14 06/12/23 History gram/dose oral powder aspirin 81 mg tablet,delayed 81 mg PO DAILY 04/14/23 03/06/25 History release cyanocobalamin (vitamin B-12) 1,000 mcg IM QMONTH 06/13/23 07/16/23 History 1,000 mcg/mL injection solution (Dodex) minoxidil 5 % topical foam 1 ea topical DAILY 06/13/23 06/12/23 History (Daylogic Minoxidil) calcium 500 mg (as 1 tab PO DAILY 07/20/23 07/20/23 History carbonate)-vitamin D3 3.125 mcg (125 unit) tablet cholecalciferol (vitamin D3) 25 25 mcg PO DAILY 07/20/23 07/20/23 History mcg (1,000 unit) capsule (Vitamin D3) vitamins A,C,W-rxmh-znhunm 4,296 1 cap PO BID 07/20/23 07/20/23 History mcg-226 mg-90 mg capsule (ICaps AREDS) fluoride (sodium) 1.1 % dental 1 applic PO Q24H 07/27/23 Unknown History cream (SF 5000 Plus) albuterol sulfate 90 mcg/actuation 2 puff inhalation Q6H PRN 02/24/24 Unknown Rx aerosol inhaler (Ventolin HFA) shortness of breath or wheezing #1 device levothyroxine 75 mcg tablet 75 mcg PO DAILY 04/23/24 03/14/25 History umeclidinium 62.5 mcg/actuation 1 inh inhalation Q24H COPD J44.9 07/17/24 03/14/25 Rx blister powder for inhalation #3 ea (Incruse Ellipta) misoprostol 100 mcg tablet 100 mcg PO DAILY 03/01/25 Unknown History (Cytotec) Allergy/AdvReac Type Severity Reaction Status Date / Time codeine Allergy Severe Nausea Verified 03/14/25 07:48 metaxalone (From Skelaxin) Allergy Severe palpitations, Verified 03/14/25 07:48 tachycardia and itching amoxicillin trihydrate (From Allergy Intermediate Diarrhea Verified 03/14/25 07:48 Augmentin) cyclobenzaprine (From Allergy Intermediate PT UNSURE Verified 03/14/25 07:48 Flexeril) OF REACTION doxycycline Allergy Intermediate Abd Verified 03/14/25 07:48 cramps/diarrhea nitrofurantoin (From Allergy Intermediate Rash Verified 03/14/25 07:48 Macrodantin) paroxetine (From Paxil) Allergy Intermediate PT UNSURE Verified 03/14/25 07:48 OF REACTION varenicline (From Chantix) Allergy Intermediate Nausea Verified 03/14/25 07:48 bacitracin (From Polysporin) Allergy Unknown Verified 03/14/25 07:48 hydrocodone (From Vicodin) Allergy Abd Verified 03/14/25 07:48 cramps/diarrhea polymyxin B sulfate (From Allergy Unknown Verified 03/14/25 07:48 Polysporin) potassium clavulanate (From Allergy Unknown Verified 03/14/25 07:48 Augmentin) sertraline (From Zoloft) Allergy Abd Verified 03/14/25 07:48 cramps/diarrhea tramadol (From Ultram) Allergy Abd Verified 03/14/25 07:48 cramps/diarrhea adhesive AdvReac Severe Swollen, Verified 03/14/25 07:48 red, broken skin: holter patches sulfamethoxazole (From AdvReac Intermediate Abd Verified 03/14/25 07:48 Septra) cramps/diarrhea trimethoprim (From Septra) AdvReac Intermediate Abd Verified 03/14/25 07:48 cramps/diarrhea propoxyphene napsylate (From AdvReac Nausea/Vom/ Verified 03/14/25 07:48 Darvocet-N 100) Diarrhea Family History Brother Cancer CAD (coronary artery disease) Heart disease Thyroid disorder Hypertension Father Myocardial infarction Heart disease Hypertension Seizures Sister Heart disease Hypertension Thyroid disorder Surgical History History of parathyroid surgery S/P tonsillectomy and adenoidectomy S/P Mohs surgery for basal cell carcinoma Hx laparoscopic cholecystectomy H/O foot surgery H/O lithotripsy History of appendectomy History of hysterectomy H/O cataract removal with insertion of prosthetic lens History of vitrectomy Social History Smoking Status: Former smoker second hand exposure: Yes alcohol intake: never substance use type: does not use Review of Systems (Anesthesia) ROS Narrative System reviewed and no additional complaints, except as documented.
--- NOTE | 2025-03-14 09:12 | HP.PCM_ITS ---
History and Physical
--- NOTE | 2025-03-14 09:12 | PCM.HP.BLA ---
History and Physical Date of Admission: 03/14/25 Date of Service: 03/01/25 MR#: [id number] Acct: [id number] Name: HANDY VEGA Rep #: [id number] : 1945 Provider: Dr. Isi Riddle MD Age/Sex: 79/F Location: [facility] Status: Signed Intake Vital Signs 01/28/2507:29 03/01/2509:57 Height 5 ft 4 in 5 ft 4 in Weight: 130 lb 132 lb BMI 22.3 22.6 BP 106/68 123/79 H Blood Pressure Location Lt brachial Rt brachial Position Sitting Sitting Respiration 18 17 Pulse 69 92 Pulse Source Monitor Monitor Pulse Oximetry (%) 96 95 Oxygen Delivery Method room air Intake Visit Reasons: Hernia Chief Complaint: hernia Is patient in pain?: No Allergies codeine Allergy (Severe, Verified 03/01/25 09:58) Nausea metaxalone (From Skelaxin) Allergy (Severe, Verified 03/01/25 09:58) palpitations, tachycardia and itching amoxicillin trihydrate (From Augmentin) Allergy (Intermediate, Verified 03/01/25 09:58) Diarrhea cyclobenzaprine (From Flexeril) Allergy (Intermediate, Verified 03/01/25 09:58) PT UNSURE OF REACTION doxycycline Allergy (Intermediate, Verified 03/01/25 09:58) Abd cramps/diarrhea nitrofurantoin (From Macrodantin) Allergy (Intermediate, Verified 03/01/25 09:58) Rash paroxetine (From Paxil) Allergy (Intermediate, Verified 03/01/25 09:58) PT UNSURE OF REACTION varenicline (From Chantix) Allergy (Intermediate, Verified 03/01/25 09:58) Nausea acetaminophen (From Vicodin) Allergy (Verified 03/01/25 09:58) Abd cramps/diarrhea bacitracin (From Polysporin) Allergy (Verified 03/01/25 09:58) Unknown hydrocodone (From Vicodin) Allergy (Verified 03/01/25 09:58) Abd cramps/diarrhea polymyxin B sulfate (From Polysporin) Allergy (Verified 03/01/25 09:58) Unknown potassium clavulanate (From Augmentin) Allergy (Verified 03/01/25 09:58) Unknown sertraline (From Zoloft) Allergy (Verified 03/01/25 09:58) Abd cramps/diarrhea tramadol (From Ultram) Allergy (Verified 03/01/25 09:58) Abd cramps/diarrhea adhesive Adverse Reaction (Severe, Verified 03/01/25 09:58) Swollen, red, broken skin: holter patches sulfamethoxazole (From Septra) Adverse Reaction (Intermediate, Verified 03/01/25 09:58) Abd cramps/diarrhea trimethoprim (From Septra) Adverse Reaction (Intermediate, Verified 03/01/25 09:58) Abd cramps/diarrhea propoxyphene napsylate (From Darvocet-N 100) Adverse Reaction (Verified 03/01/25 09:58) Nausea/Vom/Diarrhea Medications ?Medication ?Instructions ?Recorded ?Confirmed ?Type atorvastatin 10 mg tablet 10 mg PO DAILY 08/08/14 03/01/25 History biotin 10,000 mcg capsule 5,000 mcg PO DAILY 08/08/14 03/01/25 History folic acid 1 mg tablet 1 mg PO QODAY 08/08/14 03/01/25 History polyethylene glycol 3350 17 17 g PO DAILY PRN constipation 08/08/14 03/01/25 History gram/dose oral powder aspirin 81 mg tablet,delayed 81 mg PO DAILY 04/14/23 03/01/25 History release cyanocobalamin (vitamin B-12) 1,000 mcg IM QMONTH 06/13/23 03/01/25 History 1,000 mcg/mL injection solution (Dodex) glycerin-mineral oil-polycarbophil 1 ea vaginal .COMPLEX 06/13/23 03/01/25 History vaginal gel (Feminine Moisturizer and Lubricating(glyc-mnOil) vaginal gel) minoxidil 5 % topical foam 1 ea topical DAILY 06/13/23 03/01/25 History (Daylogic Minoxidil) calcium 500 mg (as 1 tab PO DAILY 07/20/23 03/01/25 History carbonate)-vitamin D3 3.125 mcg (125 unit) tablet cholecalciferol (vitamin D3) 25 25 mcg PO DAILY 07/20/23 03/01/25 History mcg (1,000 unit) capsule (Vitamin D3) vitamins A,C,H-sxmk-edkgvs 4,296 1 cap PO BID 07/20/23 03/01/25 History mcg-226 mg-90 mg capsule (ICaps AREDS) fluoride (sodium) 1.1 % dental applic PO 07/27/23 03/01/25 History cream (SF 5000 Plus) albuterol sulfate 90 mcg/actuation 2 puff inhalation Q6H PRN 02/24/24 03/01/25 Rx aerosol inhaler (Ventolin HFA) shortness of breath or wheezing #1 device levothyroxine 75 mcg tablet 75 mcg PO DAILY 04/23/24 03/01/25 History umeclidinium 62.5 mcg/actuation 1 inh inhalation Q24H COPD J44.9 07/17/24 03/01/25 Rx blister powder for inhalation #3 ea (Incruse Ellipta) misoprostol 100 mcg tablet 100 mcg PO DAILY 03/01/25 03/01/25 History (Cytotec) Have you fallen in the past year?: No PFSH Medical History Heart murmur Dizziness Cancer Thyroid disease TIA (transient ischemic attack) History of IBS Emphysema, unspecified Shortness of breath on exertion Tremor Neuropathy History of irregular heartbeat rib removal mohs procedure Hearing loss Fatigue Hyperlipidemia Pernicious anemia Kidney stone Hypothyroidism IBS (irritable bowel syndrome) Migraines Fibromyalgia Squamous cell carcinoma Basal cell carcinoma (BCC) Hemangioma Lentigo Keratosis Other specified disorder of gallbladder Atypical chest pain Dyspnea on exertion GERD (gastroesophageal reflux disease) COPD (chronic obstructive pulmonary disease) Pulmonary nodule PND (post-nasal drip) Hoarseness Surgical History History of parathyroid surgery S/P tonsillectomy and adenoidectomy S/P Mohs surgery for basal cell carcinoma Hx laparoscopic cholecystectomy H/O foot surgery H/O lithotripsy History of appendectomy History of hysterectomy H/O cataract removal with insertion of prosthetic lens History of vitrectomy Family History Brother Cancer CAD (coronary artery disease) Heart disease Thyroid disorder Hypertension Father Myocardial infarction Heart disease Hypertension Seizures Sister Heart disease Hypertension Thyroid disorder Social History Smoking Status: Former smoker second hand exposure: Yes alcohol intake: never substance use type: does not use HPI HPI HPI: 79-year-old female presents due to abdominal pain and ventral hernia. Patient ultrasound showed ventral hernia 2 cm superior to the umbilicus with Valsalva. Patient states she started noticing abdominal pain in that area in October. But is gotten worse over the last couple weeks. Patient states she does workout 4 days a week including cardio and weights. Patient is on a baby aspirin due to history of stroke/TIA in 2022 per patient. Patient does have a history of a laparoscopic cholecystectomy and a vaginal hysterectomy & appendectomy via Pfannenstiel incision. ROS General General: Yes fatigue; No weight change, appetite, colon cancer or breast cancer HEENT HEENT: Yes eye surgery; No difficulty swallowing, eye injury, swollen glands or hoarseness Endo Endocrine: Yes thyroid disease; No diabetes mellitus, thyroid cancer, Hair loss, heat intolerance or cold intolerance Skin Skin: No rash or changing moles Musc Musculoskeletal: Yes arthritis; No back problems, rheumatoid arthritis, gout or joint pain Cardio Cardiovascular: Yes murmur and heart disease; No pacemaker, atrial fibrillation, high blood pressure, heart attack, heart stent, palpitations, shortness of breath with exertion or chest pain Psych Psychiatric: No depression, anxiety or hearing voices Resp Respiratory: Yes shortness of breath, No sleep apnea, No cough, Yes COPD, No asthma, Yes emphysema and No wheezing Gastro Gastrointestinal: Yes abdominal pain, No nausea or vomiting, No diarrhea, Yes constipation, No blood in stool, No acid reflux, Yes hemorrhoids, No ulcers, No gallbladder problem and No black,tarry stools Patric Hematologic: No blood thinners, No blood disorders, No bleeding, Yes anemia and No blood clots Neuro Neurologic: Yes numbness and Yes tingling Exam Const General: cooperative, healthy appearing, comfortable and no acute distress HENMT Head: normocephalic and atraumatic Neck Neck: supple Resp Effort & Inspection: normal respiratory effort Cardio Rate: regular rate GI Inspection: non-distended Palpation: soft, hernia (Superior to umbilicus-ventral/incisional-incarcerated) and nontender Skin General: no rashes or lesions noted Neuro General: CN's II-XI intact bilaterally Extrem General: normal to inspection Psych Mental Status: mental status grossly normal Attitude: cooperative Assessment and Plan Assessment and Plan (1) Incarcerated incisional hernia: Status: Acute Comment: Superior to umbilicus Plan On exam patient's hernia is incarcerated does appear to go superior but unable to be reduced on exam, bedside ultrasound shows only contains abdominal adipose tissue. Plan to do an open ventral/incisional hernia pair with mesh. Reviewed the procedure with the patient including the risks, including but not limited to infection, bleeding, paresthesia, chronic pain, injury to small bowel or other organs, and recurrence. All questions were answered. Isi Riddle M.D. Pager: [phone] [facility] [address] [place] [address], [address] [place] [address] Office: [phone] Coding Level of Care Code Off vis,new,level 3 Diagnoses Incarcerated incisional hernia K43.0 Clinical Quality Measures Falls Risk Screening/Assistive Devices Have you fallen in the past year?: No 03/01/25 1622 <Electronically signed by Isi Riddle MD> Date Isi Riddle MD
[2025-03-14] MEDS: fentaNYL 100 MCG/2 ML Ampul 50 MCG IV (10:05)
[2025-03-14] MEDS: Lidocaine 1% (5 ml sdv) 5 ML Vial IV (10:05)
--- NOTE | 2025-03-14 10:37 | OP.PCM_ITS ---
Operative Report (Standard)
--- NOTE | 2025-03-14 10:37 | PCM.OPRPT ---
Operative Report (Standard) Operative Information Date of Procedure: 03/14/25 Pre-Operative Diagnosis: Incarcerated ventral hernia Post-Operative Diagnosis: Same Surgery/Procedure Performed: Incarcerated ventral hernia repair with mesh store leader: Yes Elevator Builder: Yumiko Perry Tasks completed by sales assistant institutional sales: Opening & closing Type of Anesthesia: General/Supplemental RN Documented Start/Stop Times: Operation Date: 03/14/25 09:00 Case Time Into Pre-Op 03/14/25 07:29 Out of Pre-Op 03/14/25 09:55 Anesthesia Start 03/14/25 10:00 Into Room 03/14/25 10:00 Procedure Start 03/14/25 10:17 Procedure Start Time: 10:17 Procedure Stop Time: 10:44 Select all DRAINS/GRAFTS/IMPLANTS that apply: Prosthetic device Prosthetic device details: Ventralex ST hernia patch LOT [id number] ref [id number] Special Medications: Clindamycin 900 mg IV x 1 Estimated Blood Loss: < 5 cc Specimen collected: No Description of surgery: Patient was brought into the room placed supine on the operating table. Correct patient, procedure, site, positioning, special, was verified prior to procedure. General anesthesia was induced. The abdomen was prepped draped in usual sterile fashion. A curvilinear incision was made below the umbilicus with a 15 blade scalpel. This was deepened with electrocautery. A hemostat was used to go around the stalk of the umbilicus and Metzenbaum scissors was used to carefully divide the hernia sac from the skin of the umbilicus. The fascia around the hernia defect was cleared and the hernia defect measured 1.1 x [address] hernia patch 4.3 cm was selected. This was secured laterally at its tails with 0 Nurolon horizontal mattress suture. The hernia defect was closed with a kveyid-co-unrui 0 Nurolon. The wound was irrigated with saline. Hemostasis was assured. The skin of the umbilicus was secured to the fascia using 3-0 Vicryl suture interrupted. The incision was closed with 3-0 Vicryl subdermal interrupted sutures and the skin was closed with interrupted 4-0 Monocryl sutures. Steri-Strips and Tegaderm and OpSite were placed over the incision once sterile cotton balls were placed in the umbilicus. Patient was extubated. Patient tolerated procedure well and was taken to the postanesthesia care unit in stable condition. Surgical Findings: See operative report Complications Complications: No
--- NOTE | 2025-03-14 10:40 | DCINST_ITS ---
Discharge Instructions
--- NOTE | 2025-03-14 10:40 | EX.PCM.DISCH ---
Discharge Instructions Diet Discharge Diet: Light diet - advance as tolerated Activity Discharge Activity: May Not Drive (while taking narcotic pain medications.) May shower in (days): 1 Lifting Restrictions: no lifting >20 lbs x 2 wks, no strenuous exercise for 4 wks Dressing / Incision Call your doctor if your incision/area has: Continuous Slow Oozing, Sudden Increased Bleeding, Increased Pain/ Swelling, Increased Redness, Foul Smelling Discharge and Swelling at the incision site Call your doctor if you observe: Fever of 101 or Higher Remove Dressing in: 2 days Cleanse incision/area with: Soap & Water Additional Dressing/Incision Instructions:: Steri-Strips will fall off in 7 to 10 days, if they do not fall off okay to remove after 10 days. Follow Up Care Please Follow Up With: Isi Riddle MD When: Call the office for a follow-up appointment 2 weeks; after 5 PM and on the weekends call [phone] with any concerns. Test Results: Test results from this visit will be discussed in further detail at your follow-up appointment, if applicable. Discharge Plan Admission Attending Provider: Isi Riddle Primary Care Provider: Ayush Medina Instructions Print Language: Yi Discharge Orders/Prescriptions Prescriptions: New oxycodone 5 mg capsule 5 mg PO Q6H PRN (Reason: pain) 3 Days Qty: 5 0RF Continued fluoride (sodium) [SF 5000 Plus] 1.1 % cream 1 applic PO Q24H Incruse Ellipta 62.5 mcg/actuation blister with device 1 inh INHALATION Q24H Qty: 3 3RF misoprostol [Cytotec] 100 mcg tablet 100 mcg PO DAILY atorvastatin 10 mg tablet 10 mg PO DAILY Patient Comments: once a day biotin 10,000 MCG capsule 5,000 mcg PO DAILY folic acid 1 mg tablet 1 mg PO QODAY Patient Comments: once a day polyethylene glycol 3350 17 gram/dose powder 17 g PO DAILY PRN (Reason: constipation) Patient Comments: as needed cholecalciferol (vitamin D3) [Vitamin D3] 25 mcg (1,000 unit) capsule 25 mcg PO DAILY Patient Comments: take 1 capsule by mouth once daily calcium carbonate-vitamin D3 500 mg-3.125 mcg (125 unit) tablet 1 tab PO DAILY ICaps AREDS 4,296 mcg-226 mg-90 mg capsule 1 cap PO BID minoxidil [Daylogic Minoxidil] 5 % foam 1 ea topical DAILY cyanocobalamin (vitamin B-12) [Dodex] 1,000 mcg/mL solution 1,000 mcg IM QMONTH levothyroxine 75 mcg tablet 75 mcg PO DAILY albuterol sulfate [Ventolin HFA] 90 mcg/actuation HFA aerosol inhaler 2 puff INHALATION Q6H PRN (Reason: shortness of breath or wheezing) Qty: 1 3RF Held aspirin 81 mg tablet,delayed release (DR/EC) 81 mg PO DAILY Hold Instructions: Resume on 03/15/25. Other Ambulatory Orders: 12 Lead EKG (Routine) Timeframe: 20250311 Location: None Selected Ordered By: Dr. Giovany Johnson Referrals / Follow Up: Ayush Medina MD [Primary Care Provider, Family Practice] Disposition Disposition (needs filled in before D/C Order can be placed): Home, Self Care
--- NOTE | 2025-03-14 11:03 | POSTOP.ANE_ITS ---
Anesthesia: Postop Eval I
--- NOTE | 2025-03-14 11:03 | PCM.POST.ANE ---
Anesthesia: Postop Eval I Current Vital Signs Temperature: 97 F Pulse Rate: 70 Blood Pressure: 106/61 Respiratory Rate: 16 Pulse Ox: 97 Oxygen Delivery Method: Room Air Assessment Airway patent: Yes Spontaneous unlabored respirations: Yes Mental status: Awake and Calm nausea: No Vomiting: No Anesthesia Complication: No Fluid Hydration Crystalloid volume administer (ml): 800 Total IV fluid infused: 800 Progress Note Anesthesia document: Postop Eval 1 completed: Yes
--- NOTE | 2025-03-14 16:19 | POSTOPAN2_ITS ---
Anesthesia Postop Eval I Sum
--- NOTE | 2025-03-14 16:19 | PCM.POSTANE2 ---
Anesthesia Postop Eval I Sum Postop Eval Completion status Anesthesia document: Postop Eval 1 completed: Yes Anesthesia Postop Eval I Summary Anesthesia Postop Eval I Summary: Anesthesia Postop Eval I: Assessment Summary Airway patent Yes 03/14/25 11:04 WHISKEY PROOF [email or web address] Spontaneous unlabored Yes 03/14/25 11:04 WHISKEY PROOF [email or web address].[email or web address] respirations Mental status Awake,Calm 03/14/25 11:04 WHISKEY PROOF [email or web address].[email or web address] nausea No 03/14/25 11:04 WHISKEY PROOF READER.GDOTT Vomiting No 03/14/25 11:04 WHISKEY PROOF READER.GDOTT Anesthesia Postop Eval I: Fluid Summary Crystalloid volume administer 800 03/14/25 11:04 WHISKEY PROOF [email or web address].GDOTT (ml) Colloids volume administered ( ml) Blood Product volume administered (ml) Total IV fluid infused 800 03/14/25 11:04 WHISKEY PROOF READER.GDOTT Anesthesia Postop Eval I: Summary Notes Anesthesia Complication No 03/14/25 11:04 WHISKEY PROOF READER.GDOTT Anesthesia Complication Comment: Post-operative progress note Anesthesia: Postop Eval II Evaluation Mental status: Awake and Calm Pain Level: 0 nausea: No Vomiting: No Complications Anesthesia Complication: No
== END 2025-03-14 13:16 | disposition home or self-care (01) ==
LOC: SDC 07:26 → AC 07:27
PROVIDERS: Anesthesiology; PCP Family Medicine; Referring Provider Surgery; Visit Provider Surgery
PROC: (CPT 49592; principal; 2025-03-14 08:45)
DX: K43.6 Other and unspecified ventral hernia with obstruction, without gangrene (principal); J43.9 Emphysema, unspecified; Z87.891 Personal history of nicotine dependence; E78.00 Pure hypercholesterolemia, unspecified; K21.9 Gastro-esophageal reflux disease without esophagitis; E03.9 Hypothyroidism, unspecified; Z79.82 Long term (current) use of aspirin; Z79.890 Hormone replacement therapy; Z79.51 Long term (current) use of inhaled steroids
CPT/HCPCS: 49592; 00750; 36415; 80048; 84443; 85027; 85610; 85730; 93005; C1781; J2405